=== PATIENT | female | born 1935 | race Caucasian/White ===

== ENCOUNTER → 2016-12-04 | Outpatient (CLI) | payer OTHER, MEDICARE ==
[~2016-12-04] MED LIST: ACET325T96 PO; AMOX1TAB43 PO; AXIT1TAB PO; CEFD1CAP14 PO; CEFU1TAB33 PO; CLTP PO; CYAN500T13 PO; DENOINJ SQ; DRGTP50 TD; DRGTP75 TD; ERGO1CAP41 PO; FNTTP50 TD; FURO-85 PO; HYDR-3983 PO; INSU3INJ3 SQ; KFL250 PO; LACT10CA3 PO; LEVO100T PO; LEVO200T6 PO; LISI-461 PO; LVMIPEN SQ; MRLP17X PO; NIVO4INJ IV; NYSS5 PO; ONDA8TAB6 PO; ONDA8TAB7 PO; OPTIRAY 320 IV PRN; PANT40TA PO; POLY335019 PO; RCL25 PO; SENN-61 PO; VANC1CAP19 PO; VNCS125 PO; [UNRECOGNIZED DRUG - OTHER] IV.
--- NOTE | 2016-12-04 12:38 | DIAGNOSTIC IMAGING REPORT ---
LEFT SHOULDER CT CT DOSE: 942.48 mGy.cm HISTORY: Fall with left shoulder pain. TECHNIQUE: Multiaxial CT images of the left shoulder were performed and reformatted in the sagittal and coronal plane without the use of contrast. COMPARISON: Left humerus 06/24/2016. FINDINGS: There is again noted a lytic lesion within the left humeral neck. This results in a pathologic fracture which demonstrates progressive displacement compared to the prior study. No dislocation within the left shoulder. The humeral neck fracture demonstrates up to 6 mm of medial displacement. The lytic/destructive left second rib lesion is again noted. Left upper lobe bronchiectatic/fibrotic change is again noted. IMPRESSION: 1. Redemonstration of a pathologic fracture within the neck of the left humerus which demonstrates progressive displacement. 2. Destructive left second rib lesion is again noted. Electronically signed by: Donovan Pan M.D. 12/04/2016 12:37 PM Dictated Date/Time: 12/04/2016 12:31 PM
--- NOTE | 2016-12-04 12:51 | DIAGNOSTIC IMAGING REPORT ---
CT SCAN OF THE CHEST WITH IV CONTRAST CLINICAL HISTORY: Metastatic renal cell carcinoma. COMPARISON STUDY: Chest CT scans dated 06/18/2016 and 02/15/2014. TECHNIQUE: Following the IV administration of 65 cc of Optiray 320, CT scan of the thorax was performed from the thoracic inlet to the upper abdomen. Images are reviewed in the axial, sagittal, and coronal planes. IV contrast was administered without complication. The examination is degraded by streak artifact from the left arm which could not be elevated above the chest. FINDINGS: Thyroid: Imaged portions of the thyroid gland are normal in size and attenuation. Thoracic aorta: There is atherosclerotic calcification of the thoracic aorta, which is normal in caliber and demonstrates standard 3-vessel arch anatomy. No dissection is seen. Pulmonary vasculature: The pulmonary trunk is mildly dilated suggesting pulmonary artery hypertension. This measures up to 3.8 cm in diameter. There are no filling defects identified in the central pulmonary vessels to indicate pulmonary embolus. Note that this examination was not protocoled for evaluation of the pulmonary arteries. Heart: The heart is normal in size and there is a small pericardial effusion. The coronary arteries are calcified. Lungs and pleural spaces: No airspace consolidation or pleural effusion is identified. A metastatic lesion at the left lung base is similar appearance to 06/18/2016 examination and measures up to 1.6 cm (producing measured up to 1.5 cm). No additional pulmonary lesion is seen. Fibrotic changes noted at the left apex adjacent to a rib metastasis. Mediastinum: There is no mediastinal lymphadenopathy. Zuleima: Clear. Axillae: Right axillary lymphadenopathy is noted. The largest node is seen on image #106 and measures 2.2 x 1.4 cm. There is no left axillary lymphadenopathy. Upper abdomen: Extensive/multifocal hypervascular hepatic metastatic disease is identified. The lesions are unchanged to minimally increased in size from 06/18/2016. A biliary stent is partially imaged. Pneumobilia suggests patency of the stent. The left kidney appears surgically absent. A metastatic soft tissue deposit below the left hemidiaphragm is seen at the expected location of the left adrenal gland. This appears modestly increased in size from 06/18/2016. A 2.0 cm low-attenuation right adrenal nodule is unchanged from 06/18/2016 but is new from 2013. Calcified gallstones are partially imaged. Skeletal structures: The skeletal structures are osteopenic. Degenerative change and hyperkyphosis is noted in the thoracic spine. There is a large destructive bone lesion involving the left second rib with adjacent pleural thickening. There is a large lesion in the left humeral neck with associated pathologic fracture. IMPRESSION: 1. A pulmonary metastasis at the left lung base has not significantly changed from 06/18/2016. 2. No new/additional pulmonary parenchymal lesions are seen. 3. There is multifocal hepatic metastatic disease as well as a metastatic implant in the expected location of the left adrenal gland. These are unchanged to slightly increased in size from 06/18/2016. See report of abdominal CT performed concurrently for detailed intra-abdominal findings. 4. There are large osseous metastatic lesions involving the left second rib and the left humeral neck. There is pathologic fracture of the left humeral neck. 5. Mild right axillary lymphadenopathy is noted. 6. No airspace consolidation or pleural effusion is seen. 7. Additional changes as above. Electronically signed by: Shadi Echols M.D. 12/04/2016 12:50 PM Dictated Date/Time: 12/04/2016 12:31 PM
--- NOTE | 2016-12-04 13:10 | DIAGNOSTIC IMAGING REPORT ---
CT ABD/PELVIS IV AND ORAL CONT CLINICAL HISTORY: Renal cell carcinoma COMPARISON STUDY: 06/18/2016 TECHNIQUE: Following the IV administration of 65 mL of Optiray-320, CT scan of the abdomen and pelvis was performed from the lung bases to the proximal femurs. Images are reviewed in the axial, sagittal, and coronal planes. IV contrast was administered without complication. CT DOSE: FINDINGS: Lower chest: There are coronary artery calcifications. There are dependent atelectatic changes. There is a 15 mm left lower lobe pulmonary nodule. This appears slightly larger on the preceding study. Liver: There are multiple hepatic masses, slightly larger than when compared the preceding study. An index mass middle hepatic vein centrally measures 25 mm. This previously measured 21 mm. There is pneumobilia. There is an indwelling no urinary enteric stent. Gallbladder: Cholelithiasis Spleen: Normal in size and attenuation. Pancreas: There is an enlarging 2 cm pancreatic tail mass, possibly metastatic. There is mild pancreatic ductal dilatation involving the mid body. Additional pancreatic body masses are suspected, possibly metastatic. Adrenal glands: Is a 2 cm right adrenal gland gland mass. Kidneys: The left kidney is surgically absent. No right renal masses are visualized. Bowel: There are no transition zones to indicate bowel obstruction. Peritoneum: There is no intraperitoneal free air or abdominal ascites. Vasculature: There is no evidence of abdominal aortic aneurysm. There is an indwelling IVC filter. Adenopathy: None. Pelvic viscera: The bladder, and pelvic viscera are unremarkable. Skeletal structures: There is a persistent left-sided chest wall mass resulting in secondary rib destruction. There is a large destructive mass involving the right sacrum and iliac bone with secondary pathologic fractures. This mass measures approximately 8 cm. Additional bony metastases are suspected. IMPRESSION: 1. Progressive hepatic metastasis 2. Enlarging pancreatic masses 3. 2 cm right adrenal mass. 4. Stable left-sided chest wall mass 5. Large destructive mass involving the right sacrum and iliac bone with secondary pathologic fracture similar to the prior study. 6. Cholelithiasis Electronically signed by: Tunde Franz M.D. 12/04/2016 1:09 PM Dictated Date/Time: 12/04/2016 12:53 PM
== END | disposition home or self-care (01) ==
LOC: C.CTS 11:30
PROVIDERS: ATTEND Orthopaedic Surgery Sports Medicine
DX: M84.522 Pathological fracture in neoplastic disease, left humerus (principal); X58.XXXD Exposure to other specified factors, subsequent encounter; C64.9 Malignant neoplasm of unspecified kidney, except renal pelvis; C79.51 Secondary malignant neoplasm of bone; C78.7 Secondary malignant neoplasm of liver and intrahepatic bile duct; K86.9 Disease of pancreas, unspecified; E27.9 Disorder of adrenal gland, unspecified; R22.2 Localized swelling, mass and lump, trunk; K80.20 Calculus of gallbladder without cholecystitis without obstruction; C78.02 Secondary malignant neoplasm of left lung

== ENCOUNTER 2017-02-07 21:40 | Inpatient (IN) | payer OTHER, MEDICARE ==
[~2017-02-07] VITALS: Ht 152.4 cm; Wt 67.0 kg
[~2017-02-07 21:40] MED LIST changes: -ACET325T96 PO; -AMOX1TAB43 PO; -CEFD1CAP14 PO; -CEFU1TAB33 PO; -DRGTP75 TD; -ERGO1CAP41 PO; -FNTTP50 TD; -INSU3INJ3 SQ; -KFL250 PO; -LACT10CA3 PO; -LEVO200T6 PO; -LISI-461 PO; -LVMIPEN SQ; -MRLP17X PO; -NIVO4INJ IV; -NYSS5 PO; -ONDA8TAB6 PO; -OPTIRAY 320 IV PRN; -POLY335019 PO; -RCL25 PO; -VANC1CAP19 PO; -VNCS125 PO; -[UNRECOGNIZED DRUG - OTHER] IV.
[2017-02-07] MEDS ORDERED: ONDANSETRON INJ 2 MG/ML 2 ML VIAL IV STA (21:51)
[2017-02-07] MEDS ORDERED: ACETAMINOPHEN 500 MG TAB PO STA (21:51)
[2017-02-07] MEDS ORDERED: SODIUM CHLORIDE 0.9% 1000ML 1,000 ML IV STA ×2 (21:51→22:01)
[2017-02-07] MEDS ORDERED: MoRPHine SULFATE 4 MG/ML 1 ML CARP\\VIAL IV STA (21:51)
[2017-02-07] MEDS ORDERED: SODIUM CHLORIDE 0.9% 500ML 500 ML IV STA (21:51)
[2017-02-07] MEDS ORDERED: LISI-461 PO (21:51)
[2017-02-07] MEDS ORDERED: PIPERACILLIN/TAZOBACTAM 4.5 GM/100ML D5W IV STA (22:10)
[2017-02-07] MEDS ORDERED: OPTIRAY 320 IV PRN (22:15)
--- NOTE | 2017-02-07 22:18 | EMERGENCY ROOM VISIT NOTE ---
ED Visit Note First contact with patient: 21:45 Staff note: I have reviewed the Patients chart and have discussed this case with my PA. I generally agree with the ED note and findings.
[2017-02-07 22:30] LABS: BASO % 0.2 %; BASO ABS # 0.02 K/uL (0-0.2); COMPLETE YES; EOS % 0.2 %; HEMATOCRIT 34.8 % (37-47); IG% 0.3 %; LYMPH % 3.5 %; LYMPH ABS # 0.44 K/uL (1.2-3.4); MEAN CELL VOLUME 93.3 fL (80-100); MEAN PLATELET VOLUME 10.1 fL (7.4-10.4); MONO % 3.3 %; NEUT % 92.5 %; PLATELET COUNT 305 K/uL (130-400); RED BLOOD COUNT 3.73 M/uL (4.2-5.4); WHITE BLOOD COUNT 12.74 K/uL (4.8-10.8)
[2017-02-07 22:39] LABS: PROTHROMBIN TIME (PATIENT) 11.2 SECONDS (9.0-12.0)
[2017-02-07 22:45] LABS: ISTAT CREATININE 1.5 mg/dl (0.6-1.3); ISTAT HEMOGLOBIN 12.2 g/dl (12.0-16.0); ISTAT IONIZED CALCIUM 1.05 mmol/l (1.12-1.32)
[2017-02-07 22:46] LABS: ALT/SGPT 38 U/L (12-78); BLOOD UREA NITROGEN 26 mg/dl (7-18); BUN/CREATININE RATIO 16.5 (10-20); CARBON DIOXIDE 25 mmol/L (21-32); CHLORIDE 101 mmol/L (98-107); GLUCOSE 246 mg/dl (70-99); MAGNESIUM 1.9 mg/dl (1.8-2.4); POTASSIUM 4.9 mmol/L (3.5-5.1); SODIUM 135 mmol/L (136-145)
[2017-02-07 22:48] LABS: CALCIUM 8.4 mg/dl (8.5-10.1)
[2017-02-07 22:50] LABS: ALB/GLOB RATIO 0.6 (0.9-2); ALKALINE PHOSPHATASE 256 U/L (45-117); AST/SGOT 28 U/L (15-37)
[2017-02-07] MEDS ORDERED: [UNRECOGNIZED DRUG - OTHER] IV. (23:10)
[2017-02-07] MEDS ORDERED: HYDR-3983 PO (23:10)
[2017-02-07] MEDS ORDERED: INSU3INJ3 SQ (23:10)
[2017-02-07] MEDS ORDERED: LVMIPEN SQ (23:10)
--- NOTE | 2017-02-07 23:17 | DIAGNOSTIC IMAGING REPORT ---
CT OF THE ABDOMEN AND PELVIS WITH CONTRAST CLINICAL HISTORY: Abdominal pain and fever. Metastatic renal cell carcinoma. COMPARISON STUDY: CT of the abdomen and pelvis December 04, 2016. TECHNIQUE: Following IV administration of 70 mL of Optiray-320, axial images of the abdomen and pelvis were obtained from the lung bases to the proximal femurs. Images were reviewed in the axial, sagittal, and coronal planes. IV contrast was administered without complication. CT DOSE: 448.10 mGy.cm FINDINGS: A 2 cm left lower lobe lesion has increased in size since CT of December 04, 2016 when it measured 1.5 cm. There is no pneumatosis, free air or portal venous gas. A common bile duct stent is in place. Pneumobilia is again noted. Moderate biliary ductal dilatation has slightly increased since exam of December 04, 2016. There are gallstones within the gallbladder. Innumerable liver metastases are similar to prior exam. An index lateral segment lesion measures 5 cm. An IVC filter is in place. There is no evidence for a bowel obstruction. There is no pneumatosis, free air or portal venous gas. Multiple pancreatic lesions are similar to prior exam. The left kidney is surgically absent. The right kidney is unremarkable. A expansile destructive lesion involving the right iliac bone and right sacrum is unchanged with associated pathologic fracture. Expansile mass involving the left lower anterior chest wall is again noted. This is similar to prior exam. There may be associated pathologic fracture. IMPRESSION: 1. Slight increase in size of a 2 cm left lower lobe metastasis. 2. No change in innumerable liver metastases and pancreatic masses since CT of December 04, 2016. 3. Common bile duct stent in place with pneumobilia. Mild increase in biliary ductal dilatation since exam of December 04, 2016. 4. Cholelithiasis. 5. No bowel obstruction. 6. No significant change in multiple skeletal metastases with associated pathologic fractures, as described above. Electronically signed by: Filiberto Powell M.D. 02/07/2017 11:15 PM Dictated Date/Time: 02/07/2017 10:58 PM
[2017-02-07 23:45] LABS: URINE APPEARANCE CLEAR (CLEAR); URINE BILIRUBIN NEG (NEG); URINE COLOR YELLOW; URINE EPITHELIAL CELL AUTO >30 /lpf (0-5); URINE NITRITE POS (NEG); URINE SPECIFIC GRAVITY 1.023 (1.000-1.030); UROBILINOGEN NEG (NEG); ZZURINE CULT IF INDIC CATH YES
[2017-02-07 23:51] LABS: MANUAL MICROSCOPIC REQUIRED? NO; REVIEW REQ? YES
--- NOTE | 2017-02-08 00:22 | EMERGENCY ROOM VISIT NOTE ---
History First contact with patient: 21:45 Chief Complaint: FEVER Stated Complaint: FEVER,CHILLS,CONSTIPATION,ABD PAIN HX METASTIC CA History of Present Illness The patient is a 81 year old female who presents to the Emergency Room with complaints of fever, chills, lower abdominal pain for the past day. Tmax 102.5. No recent Tylenol. Patient has metastatic carcinoma and follows at Dr. Mars. She got chemotherapy 2 weeks ago. No recent radiation. Patient has been constipated. No known history of bowel obstruction. Patient denies chest pain, dyspnea, cough, congestion, sore throat, back pain, urinary symptoms. Decreased by mouth intake. Patient has a biliary stent in. Review of Systems See HPI for pertinent positives & negatives. A total of 10 systems reviewed and were otherwise negative. Past Medical/Surgical History Medical Problems: (1) Diabetes (2) DVT (deep venous thrombosis) (3) Hypertension (4) Metastatic renal cell carcinoma to bone Family History Patient reports no known family medical history. Social History Smoking Status: Never Smoker Alcohol Use: none Drug Use: none Marital Status: Housing Status: lives with family Occupation Status: retired Current/Historical Medications Scheduled Calcium/Vitamin D (Caltrate 600 Plus *), 1 TAB PO DAILY Cyanocobalamin (Vitamin B12 500MCG), 1,000 MCG PO DAILY Denosumab (Xgeva), 1 DOSE SC MONTHLY Fentanyl (Duragesic *), 50 MCG TD [id number] Furosemide (Lasix), 20 MG PO DAILY Insulin Detemir (Levemir Flextouch), 6 UNITS SQ QAM Insulin Detemir (Levemir Flextouch), 3 UNITS SQ QPM Levothyroxine Sodium (Synthroid), 100 MCG PO DAILY Lisinopril (Lisinopril), 20 MG PO DAILY Pantoprazole (Protonix), 40 MG PO DAILY [Opdiva], 1 DOSE IV. [id number] Scheduled PRN Hydrocodone/Acetaminophen 7.5MG/325MG (Winifrede 7.5MG/325MG), 1-2 TAB PO Q4 PRN for Pain Ondansetron Tab (Zofran), 8 MG PO Q8 PRN for Nausea Senna (Senokot), 1 TAB PO DAILY PRN for Constipation Allergies Coded Allergies: Adhesives (Verified Allergy, Mild, LOCAL SKIN IRRITATION, BLISTERS, ) Physical Exam Vital Signs Date Time Temp Pulse Resp B/P Pulse Ox O2 Delivery O2 Flow Rate FiO2 02/07/17 22:55 37.1 02/07/17 22:49 98 18 129/53 91 Room Air 02/07/17 22:19 103 02/07/17 21:42 39.4 110 18 138/61 99 Room Air Physical Exam VITALS: Vitals are noted on the nurse's note and reviewed by myself. Vital signs febrile GENERAL: Pleasant ill-appearing elderly female SKIN: The skin was without rashes, erythema, or bruising. There is no tenting of the skin. Capillary reflex less than 2 seconds. HEAD: Normocephalic atraumatic. EARS: External auditory canals clear, tympanic membranes pearly villalobos without erythema or effusion bilaterally. EYES: Pupils equal round and reactive to light and accommodation. Conjunctivae without injection, sclerae without icterus. Extraocular movements intact. NOSE: Patent, turbinates without inflammation or discharge. No sinus tenderness. MOUTH: Mucous membranes are dry. Pharynx without erythema or exudate. Uvula midline. Airway patent. Tongue does not deviate. NECK: Supple without nuchal rigidity. No lymphadenopathy. No thyromegaly. Cervical spine is nontender. No JVD. HEART: Regular rate and rhythm LUNGS: Clear to auscultation bilaterally without wheezes, rales or rhonchi. No dullness to percussion. No retractions or accessory muscle use. ABDOMEN: Positive bowel sounds x 4. Normal tympanic percussion. Soft, tender to palpation right upper quadrant and lower abdomen, without masses or organomegaly. No guarding or rebound tenderness. No CVA tenderness MUSCULOSKELETAL: No muscle atrophy, erythema, noted. NEURO: Patient was alert and oriented to person place and time. Normal sensation to light and sharp touch. No focal neurological deficits. Medical Decision & Procedures Laboratory Results 02/07/17 22:04 Red Blood Count 3.73, Mean Corpuscular Volume 93.3, Mean Corpuscular Hemoglobin 29.0, Mean Corpuscular Hemoglobin Concent 31.0, Mean Platelet Volume 10.1, Neutrophils (%) (Auto) 92.5, Lymphocytes (%) (Auto) 3.5, Monocytes (%) (Auto) 3.3, Eosinophils (%) (Auto) 0.2, Basophils (%) (Auto) 0.2, Neutrophils # (Auto) 11.80, Lymphocytes # (Auto) 0.44, Monocytes # (Auto) 0.42, Eosinophils # (Auto) 0.02, Basophils # (Auto) 0.02 02/07/17 22:04 Test 02/07/17 22:04 02/07/17 22:20 02/07/17 22:21 02/07/17 22:32 White Blood Count 12.74 K/uL (4.8-10.8) Red Blood Count 3.73 M/uL (4.2-5.4) Hemoglobin 10.8 g/dL (12.0-16.0) Hematocrit 34.8 % (37-47) Mean Corpuscular Volume 93.3 fL (80-100) Mean Corpuscular Hemoglobin 29.0 pg (25-34) Mean Corpuscular Hemoglobin Concent 31.0 g/dl (32-36) Platelet Count 305 K/uL (130-400) Mean Platelet Volume 10.1 fL (7.4-10.4) Neutrophils (%) (Auto) 92.5 % Lymphocytes (%) (Auto) 3.5 % Monocytes (%) (Auto) 3.3 % Eosinophils (%) (Auto) 0.2 % Basophils (%) (Auto) 0.2 % Neutrophils # (Auto) 11.80 K/uL (1.4-6.5) Lymphocytes # (Auto) 0.44 K/uL (1.2-3.4) Monocytes # (Auto) 0.42 K/uL (0.11-0.59) Eosinophils # (Auto) 0.02 K/uL (0-0.5) Basophils # (Auto) 0.02 K/uL (0-0.2) RDW Standard Deviation 50.9 fL (36.4-46.3) RDW Coefficient of Variation 14.7 % (11.5-14.5) Immature Granulocyte % (Auto) 0.3 % Immature Granulocyte # (Auto) 0.04 K/uL (0.00-0.02) Prothrombin Time 11.2 SECONDS (9.0-12.0) Prothromb Time International Ratio 1.0 (0.9-1.1) Activated Partial Thromboplast Time 27.1 SECONDS (21.0-31.0) Partial Thromboplastin Ratio 1.0 Est Creatinine Clear Calc Drug Dose 23.2 ml/min Estimated GFR () 34.7 Estimated GFR (Non- 29.9 BUN/Creatinine Ratio 16.5 (10-20) Calcium Level 8.4 mg/dl (8.5-10.1) Magnesium Level 1.9 mg/dl (1.8-2.4) Total Bilirubin 0.7 mg/dl (0.2-1) Aspartate Amino Transf (AST/SGOT) 28 U/L (15-37) Alanine Aminotransferase (ALT/SGPT) 38 U/L (12-78) Alkaline Phosphatase 256 U/L (45-117) Total Creatine Kinase 29 U/L (26-192) Creatine Kinase MB < 0.5 ng/ml (0.5-3.6) Creatine Kinase MB Ratio (0-3.0) Total Protein 7.4 gm/dl (6.4-8.2) Albumin 2.9 gm/dl (3.4-5.0) Globulin 4.5 gm/dl (2.5-4.0) Albumin/Globulin Ratio 0.6 (0.9-2) Procalcitonin 2.01 ng/ml (0-0.5) Bedside Troponin I 0.030 ng/ml (0-0.045) Bedside Hemoglobin 12.2 g/dl (12.0-16.0) Bedside Hematocrit 36 % (37-47) Bedside Sodium 135 mEq/L (135-144) Bedside Potassium 5.0 mEq/L (3.3-5.0) Bedside Chloride 98 mEq/L (101-112) Bedside Total CO2 24 mEq/l (24-31) Anion Gap 18.0 mmol/L (16-25) Bedside Blood Urea Nitrogen 25 mg/dl (7-18) Bedside Creatinine 1.5 mg/dl (0.6-1.3) Bedside Glucose (other) 256 mg/dl (70-99) Bedside Ionized Calcium (Norma) 1.05 mmol/l (1.12-1.32) Bedside Lactic Acid Venous 1.03 mmol/L (0.90-1.70) Test 02/07/17 22:33 02/07/17 23:20 Influenza Type A Antigen Neg for Influ A (NEG) Influenza Type B Antigen Neg for Influ B (NEG) Urine Color YELLOW Urine Appearance CLEAR (CLEAR) Urine pH 6.0 (4.5-7.5) Urine Specific Hoffman 1.023 (1.000-1.030) Urine Protein 1+ (NEG) Urine Glucose (UA) NEG (NEG) Urine Ketones 1+ (NEG) Urine Occult Blood 2+ (NEG) Urine Nitrite POS (NEG) Urine Bilirubin NEG (NEG) Urine Urobilinogen NEG (NEG) Urine Leukocyte Esterase SMALL (NEG) Urine WBC (Auto) 5-10 /hpf (0-5) Urine RBC (Auto) 0-4 /hpf (0-4) Urine Hyaline Casts (Auto) 0 /lpf (0-5) Urine Epithelial Cells (Auto) >30 /lpf (0-5) Urine Bacteria (Auto) 3+ (NEG) Urine Renal Epithelial Cells /lpf (0-5) Urine Pathogenic Casts /lpf (0) Medications Administered Medications (Trade) Dose Ordered Sig/Suleiman Route Start Time Stop Time Status Last Admin Dose Admin Sodium Chloride (Nss 1000ml) 1,000 ml @ 125 mls/hr Q8H STAT IV 02/07/17 21:51 02/08/17 05:50 02/07/17 23:26 125 MLS/HR Acetaminophen (Tylenol Tab) 1,000 mg NOW STAT PO 02/07/17 21:51 02/07/17 21:56 DC 02/07/17 22:24 1,000 MG Morphine Sulfate (MoRPHine SULFATE INJ) 4 mg NOW STAT IV 02/07/17 21:51 02/07/17 21:56 DC 02/07/17 22:25 4 MG Ondansetron HCl 4 mg 4 mg NOW STAT IV 02/07/17 21:51 02/07/17 21:56 DC 02/07/17 22:24 4 MG Sodium Chloride (Nss 1000ml) 1,000 ml @ 999 mls/hr Q1H1M STAT IV 02/07/17 22:01 02/07/17 23:01 DC 02/07/17 22:24 999 MLS/HR Piperacillin Sod/ Tazobactam Sod (Zosyn Iv) 4.5 gm NOW STAT IV 02/07/17 22:10 02/07/17 22:11 DC 02/07/17 22:23 4.5 GM ED Course Prior records/ancillary studies reviewed. Triage Nursing notes reviewed. Additional history obtained from family The patient's history was concerning for fever and lower abdominal pain Differential diagnosis: Etiologies such as sepsis, UTI, pneumonia, metabolic, electrolyte abnormalities , cardiac sources, intracerebral event, toxicologic, neurologic, as well as others were entertained. Physical examination: As above. Pertinent findings were fever and lower abdominal pain. Vital signs reviewed and revealed febrile. ER treatment provided: IV fluid resuscitation with Normal saline solution, 1000 mL bolus. IV fluid hydration with Normal saline solution at 125 mL/hr. Blood and urine cultures Antibiotics: Zosyn On reassessment the patient vital signs improved. Diagnostics interpretation by me: ECG: Normal sinus, normal intervals, no acute ST-T wave changes, left axis deviation, rate of 101. Poor baseline. Artifact present. Impression sinus tachycardia with left axis deviation interpreted by myself The labs revealed leukocytosis on CBC. Chemistry panel revealed stable creatinine per chart review. LFTs revealed. Cardiac enzymes were negative. Pro-calcitonin 2 Blood and urine cultures are pending. Imaging studies: Chest xray revealed no pneumothorax, stable currently medically, known left humeral lesion with fracture my interpretation. CT OF THE ABDOMEN AND PELVIS WITH CONTRAST CLINICAL HISTORY: Abdominal pain and fever. Metastatic renal cell carcinoma. COMPARISON STUDY: CT of the abdomen and pelvis December 04, 2016. TECHNIQUE: Following IV administration of 70 mL of Optiray-320, axial images of the abdomen and pelvis were obtained from the lung bases to the proximal femurs. Images were reviewed in the axial, sagittal, and coronal planes. IV contrast was administered without complication. CT DOSE: 448.10 mGy.cm FINDINGS: A 2 cm left lower lobe lesion has increased in size since CT of December 04, 2016 when it measured 1.5 cm. There is no pneumatosis, free air or portal venous gas. A common bile duct stent is in place. Pneumobilia is again noted. Moderate biliary ductal dilatation has slightly increased since exam of December 04, 2016. There are gallstones within the gallbladder. Innumerable liver metastases are similar to prior exam. An index lateral segment lesion measures 5 cm. An IVC filter is in place. There is no evidence for a bowel obstruction. There is no pneumatosis, free air or portal venous gas. Multiple pancreatic lesions are similar to prior exam. The left kidney is surgically absent. The right kidney is unremarkable. A expansile destructive lesion involving the right iliac bone and right sacrum is unchanged with associated pathologic fracture. Expansile mass involving the left lower anterior chest wall is again noted. This is similar to prior exam. There may be associated pathologic fracture. IMPRESSION: 1. Slight increase in size of a 2 cm left lower lobe metastasis. 2. No change in innumerable liver metastases and pancreatic masses since CT of December 04, 2016. 3. Common bile duct stent in place with pneumobilia. Mild increase in biliary ductal dilatation since exam of December 04, 2016. 4. Cholelithiasis. 5. No bowel obstruction. 6. No significant change in multiple skeletal metastases with associated pathologic fractures, as described above. Electronically signed by: Filiberto Powell M.D. 02/07/2017 11:15 PM Dictated Date/Time: 02/07/2017 10:58 PM Consultation: A consultation was placed with the [facility] hospitalist, Dr Bradford. The case was discussed and diagnostics were reviewed. The patient was evaluated in the ER for further treatment. Case reviewed with my attending Exam and history seem consistent with sepsis. Patient was reevaluated numerous times. Chart review was done to the [employer] system as patient had no recent blood work and this was reviewed. Patient was hydrated as above. She was started on broad-spectrum antibiotics. She felt much better to be medicated as above. She had an elevated procalcitonin. Family is agreeable to treatment plan of admission. Medical Decision As above Impression Primary Impression: Sepsis Additional Impression: UTI (urinary tract infection) Critical Care I have personally spent greater than 30 minutes of critical care time in the direct management of this patient. This includes bedside care, interpretation of diagnostic studies, and testing, discussion with consultants, patient, and family members, and other required patient management activities. This 30 minutes is in excess of all separately billable procedures. Departure Information Dispostion Being Evaluated By Hospitalist Condition [facility]IR Referrals Kamini Dunn M.D. (PCP) Patient Instructions My [facility] Problem Qualifiers Primary Impression: Sepsis Sepsis type: sepsis due to unspecified organism Qualified Codes: A41.9 - Sepsis, unspecified organism
[2017-02-08] MEDS ORDERED: VANCOMYCIN INJ 1,650 MG in SODIUM CHLORIDE 0.9% 500ML 500 ML IV ONE (00:45)
[2017-02-08] MEDS ORDERED: ALUMINUM/MAGNESIUM/SIMETH (MAALOX MAX) 30 ML UDC PO PRN (00:45)
[2017-02-08 00:50] LABS: INFLUENZA A PCR Neg for Influ A (NEG); INFLUENZA B PCR Neg for Influ B (NEG)
[2017-02-08] MEDS ORDERED: FURO-85 PO (00:54)
[2017-02-08 01:30] VITALS: BP 117/59; PULSE 87; TEMP 36.6; O2SAT 92; BMI 26.6
[2017-02-08] MEDS ORDERED: POLYETHYLENE (MIRALAX) 17 GM PACK PO PRN (02:30)
[2017-02-08] MEDS ORDERED: VANCOMYCIN CONSULT ACTIVE PRN (02:30)
[2017-02-08] MEDS ORDERED: PIPERACILL/TAZOBAC CONSULT ACTIVE PRN (02:30)
[2017-02-08] MEDS: SODIUM CHLORIDE 0.9% 1000ML 1,000 ML IV SCH ×2 (02:33→15:39)
[2017-02-08] MEDS ORDERED: DEXTROSE 50% 50 ML SYR IV PRN (03:00)
[2017-02-08] MEDS ORDERED: GLUCOSE 10 TABS/TUBE PO PRN (03:00)
[2017-02-08] MEDS: CHECK FENTANYL PATCH PLACEMENT SCH ×4 (03:00→23:36)
[2017-02-08] MEDS ORDERED: GLUCOSE 40% GEL 15 GM TUBE PO PRN (03:00)
[2017-02-08] MEDS ORDERED: GLUCAGON FOR INJ 1 MG VIAL SQ PRN (03:00)
[2017-02-08] MEDS: PIPERACILL/TAZOBAC IV 3.375 GM in DEXTROSE 5% 100ML 100 ML IV SCH ×2 (04:12→12:14)
--- NOTE | 2017-02-08 04:17 | HISTORY & PHYSICAL EXAMINATION ---
DATE OF ADMISSION: 02/08/2017 CHIEF COMPLAINT: Abdominal pain and fever. HISTORY OF PRESENT ILLNESS: This 81-year-old female with past medical history significant for metastatic renal cancer with liver metastasis and bone metastasis, hypothyroidism, hypertension and GERD, presents with right-sided abdominal pain, severe in nature, and she says the pain is more when she stands up and also was running temperature at home. So she was brought in here, she has a temp spike of 39.4 in the ER, pain is better controlled with pain medication now. Denies any headaches, no blurred vision, no dizziness, no cough, no nausea, no vomiting, no diarrhea, no hematuria, no burning micturition. Appetite is not that great. Lives with her family. Ambulation not that great. Currently resting comfortably and hemodynamically stable. PAST MEDICAL HISTORY: As mentioned above. Also history of DVT with IVC filter placement and also diabetes. PAST SURGICAL HISTORY: Left-sided nephrectomy in 1997, IVC filter in 2011, and 2 C-sections. MEDICATIONS: The patient is on fentanyl patch 50 mcg q. 72 hours, [place] 7.5/325 mg 1-2 tablets every 4 hours p.r.n., Lasix 20 mg p.o. daily p.r.n., levothyroxine 100 mcg p.o. daily, lisinopril 20 mg p.o. daily, Levemir 6 units in a.m. and 3 units in p.m., Zofran 8 mg p.o. q. 8 hours p.r.n., Senokot 1 tablet p.o. daily p.r.n., Opdivo every 2 weeks, Xgeva subcu monthly, calcium plus vitamin D 1 tablet daily, vitamin B12 1000 mcg p.o. daily, and Protonix 40 mg p.o. daily. FAMILY HISTORY: Noncontributory at this time. SOCIAL HISTORY: No smoking history, no drug use, no drinking history. Currently lives at home with her family. REVIEW OF SYMPTOMS: As per HPI. Rest of review of systems negative. PHYSICAL EXAMINATION: GENERAL: The patient is old and frail, not in distress. VITAL SIGNS: T-max 39.4, pulse 83, respiratory rate 14, blood pressure 129/62, oxygen 97% on room air. HEENT: No pallor, no icterus. Pupils equal, round, and reactive to light. NECK: No JVD, no neck masses, no carotid bruits. CARDIOVASCULAR: S1, S2 heard, regular rate and rhythm, no murmur, no gallop. RESPIRATORY: Normal AP diameter. No accessory muscle use. No wheezing, no crackles. ABDOMEN: Soft, bowel sounds present. Mild right lower quadrant tenderness. No guarding, no rigidity, no distention. CENTRAL NERVOUS SYSTEM: Cranial nerves II-XII grossly intact. Nonfocal. EXTREMITIES: Lower extremity edema present. No gross erythema seen. LABORATORIES: WBC 12.7, hemoglobin 10.8, hematocrit 34.8, platelets 305. Sodium 135, potassium 4.9, chloride 101, CO2 of 25, BUN 26, creatinine 1.6, serum glucose 246. [id number] lactic acid 1. Magnesium 1.9. Total bilirubin 0.7. AST 28, ALT 38, alkaline phosphatase 256, procalcitonin 2. PT 11.2, INR 1, PTT 27.1. Urinalysis positive for leukocyte esterase. Influenza negative. CT of the abdomen and pelvis shows slight increase in the 2 cm left lower lobe metastasis. No change in liver metastasis and pancreatic masses since CT of 11/2016. Common bile duct stent placed with pneumobilia, mild increase in biliary ductal dilatation since the exam of 12/04/2016. Cholecystitis, no bowel obstruction, no change in multiple skeletal metastasis with associated pathological fractures. Chest x-ray, no infiltrates seen. ASSESSMENT AND PLAN: This is an 81-year-old female who presents with abdominal pain with possible urinary tract infection. 1. Abdominal pain and fever, possibly urinary tract infection, empirically starting her on vancomycin and Zosyn. We will follow the cultures. Gentle fluids. Monitor on the medical floor. 2. History of hypertension, continue lisinopril, monitor the blood pressure. 3. History of diabetes. As per the family, the patient feels hypoglycemic episode when her sugars are around 100, she is used to be on the higher side. The patient is on Levemir 3 units at nighttime and 6 units at daytime, but we will place on 3 units b.i.d. Insulin sliding scale and monitor blood sugars. Follow hemoglobin A1c levels. 4. History of hypothyroidism, continue Synthroid. 5. History of chronic diastolic congestive heart failure with a grade 1 diastolic dysfunction, on Lasix as needed. We will monitor for any volume overload as patient on Gentle fluids. 6. Metastatic renal cancer with skeletal metastasis and liver metastasis and also pathological fractures, follows with Dr. Car, orthopedics. Pain controlled with fentanyl and [place] and she is supposed to get Opdivo chemo tomorrow on Saturday. We will consult Dr. Conner for further recommendations regarding chemo. 7. Gastroesophageal reflux disease, continue Protonix. 8. Deep vein thrombosis prophylaxis, SCDs and heparin subcu. 9. Disposition: Admit to medical floor. Expect to discharge home and follow up with the family doctor. Level 1 full code. MTDD
[2017-02-08] MEDS: HYDROCODONE/ACETAMINOPHEN 7.5/325MG TAB PO PRN ×3 (05:27→17:04)
[2017-02-08] MEDS: LEVOTHYROXINE 100 MCG TAB PO SCH (05:27)
--- NOTE | 2017-02-08 06:26 | DIAGNOSTIC IMAGING REPORT ---
CHEST ONE VIEW PORTABLE CLINICAL HISTORY: Sepsis dyspnea COMPARISON STUDY: 03/09/2016 FINDINGS: Patient is rotated to the left. There is a fracture of the left humeral neck. Appears to be a pathologic fracture through the humeral neck site. Lungs are grossly clear. There is slight accentuation the left parenchymal markings. There is platelike atelectasis right base. IMPRESSION: Pulmonary vascular congestion. Pathologic fracture left humeral neck. Electronically signed by: Gordon Marvin M.D. 02/08/2017 6:24 AM Dictated Date/Time: 02/08/2017 6:23 AM
[2017-02-08 06:57] LABS: CREATININE 1.6 mg/dl (0.60-1.20)
[2017-02-08 07:33] LABS: ESTIMATED AVERAGE GLUCOSE 186 mg/dl; HA1C FLAG Normal (Normal)
[2017-02-08 07:34] VITALS: BP 122/66; PULSE 93; TEMP 36.6; O2SAT 94
[2017-02-08] MEDS: CYANOCOBALAMIN 500 MCG TAB (VIT B-12) PO SCH ×2 (08:00→08:12)
[2017-02-08] MEDS ORDERED: LISINOPRIL 20 MG TAB PO SCH (08:00)
[2017-02-08] MEDS: PANTOprazole SOD 40 MG TAB PO SCH (08:13)
[2017-02-08] MEDS: CALCIUM 600MG + VIT D 400 IU TAB PO SCH (08:13)
[2017-02-08] MEDS: HEPARIN SOD 5000 UNIT/0.5 ML CARP SQ SCH ×2 (08:20→20:09)
[2017-02-08] MEDS: INSULIN ASPART 100 UNITS/ML 3 ML PEN SC SCH ×4 (08:27→20:12)
[2017-02-08] MEDS: INSULIN DETEMIR FLEXPEN/FLEX TOUCH 100 UNITS/ML 3ML SC SCH ×2 (08:28→20:13)
--- NOTE | 2017-02-08 08:48 | Pharmacy Progress Note ---
Pharmacy Antibiotic Consult Date of Service: February 08, 2017. Pharmacy Dosing Scope Pharmacy is consulted to initiate VANCOMYCIN + ZOSYN IV dosing therapy, order appropriate labs and adjust drug dose/frequency. Subjective The patient is a 81 year old female admitted on February 08, 2017 at 00:50. Objective Height (Feet): 5 Height (Inches): 0.00 Weight (Kilograms): 61.700 Lab Results (24hrs): Test 02/07/17 22:04 02/07/17 22:20 02/07/17 22:21 02/07/17 22:32 White Blood Count 12.74 K/uL (4.8-10.8) Red Blood Count 3.73 M/uL (4.2-5.4) Hemoglobin 10.8 g/dL (12.0-16.0) Hematocrit 34.8 % (37-47) Mean Corpuscular Volume 93.3 fL (80-100) Mean Corpuscular Hemoglobin 29.0 pg (25-34) Mean Corpuscular Hemoglobin Concent 31.0 g/dl (32-36) Platelet Count 305 K/uL (130-400) Mean Platelet Volume 10.1 fL (7.4-10.4) Neutrophils (%) (Auto) 92.5 % Lymphocytes (%) (Auto) 3.5 % Monocytes (%) (Auto) 3.3 % Eosinophils (%) (Auto) 0.2 % Basophils (%) (Auto) 0.2 % Neutrophils # (Auto) 11.80 K/uL (1.4-6.5) Lymphocytes # (Auto) 0.44 K/uL (1.2-3.4) Monocytes # (Auto) 0.42 K/uL (0.11-0.59) Eosinophils # (Auto) 0.02 K/uL (0-0.5) Basophils # (Auto) 0.02 K/uL (0-0.2) RDW Standard Deviation 50.9 fL (36.4-46.3) RDW Coefficient of Variation 14.7 % (11.5-14.5) Immature Granulocyte % (Auto) 0.3 % Immature Granulocyte # (Auto) 0.04 K/uL (0.00-0.02) Prothrombin Time 11.2 SECONDS (9.0-12.0) Prothromb Time International Ratio 1.0 (0.9-1.1) Activated Partial Thromboplast Time 27.1 SECONDS (21.0-31.0) Partial Thromboplastin Ratio 1.0 Sodium Level 135 mmol/L (136-145) Potassium Level 4.9 mmol/L (3.5-5.1) Chloride Level 101 mmol/L (98-107) Carbon Dioxide Level 25 mmol/L (21-32) Anion Gap 9.0 mmol/L (3-11) 18.0 mmol/L (16-25) Blood Urea Nitrogen 26 mg/dl (7-18) Creatinine 1.60 mg/dl (0.60-1.20) Est Creatinine Clear Calc Drug Dose 23.2 ml/min Estimated GFR () 34.7 Estimated GFR (Non- 29.9 BUN/Creatinine Ratio 16.5 (10-20) Random Glucose 246 mg/dl (70-99) Estimated Average Glucose 186 mg/dl Hemoglobin A1c 8.1 % (4.5-5.6) Calcium Level 8.4 mg/dl (8.5-10.1) Magnesium Level 1.9 mg/dl (1.8-2.4) Total Bilirubin 0.7 mg/dl (0.2-1) Aspartate Amino Transf (AST/SGOT) 28 U/L (15-37) Alanine Aminotransferase (ALT/SGPT) 38 U/L (12-78) Alkaline Phosphatase 256 U/L (45-117) Total Creatine Kinase 29 U/L (26-192) Creatine Kinase MB < 0.5 ng/ml (0.5-3.6) Creatine Kinase MB Ratio (0-3.0) Total Protein 7.4 gm/dl (6.4-8.2) Albumin 2.9 gm/dl (3.4-5.0) Globulin 4.5 gm/dl (2.5-4.0) Albumin/Globulin Ratio 0.6 (0.9-2) Procalcitonin 2.01 ng/ml (0-0.5) Bedside Troponin I 0.030 ng/ml (0-0.045) Bedside Hemoglobin 12.2 g/dl (12.0-16.0) Bedside Hematocrit 36 % (37-47) Bedside Sodium 135 mEq/L (135-144) Bedside Potassium 5.0 mEq/L (3.3-5.0) Bedside Chloride 98 mEq/L (101-112) Bedside Total CO2 24 mEq/l (24-31) Bedside Blood Urea Nitrogen 25 mg/dl (7-18) Bedside Creatinine 1.5 mg/dl (0.6-1.3) Bedside Glucose (other) 256 mg/dl (70-99) Bedside Ionized Calcium (Norma) 1.05 mmol/l (1.12-1.32) Bedside Lactic Acid Venous 1.03 mmol/L (0.90-1.70) Test 02/07/17 22:33 02/07/17 23:20 02/08/17 05:47 02/08/17 08:17 Influenza Type A (RT-PCR) Neg for Influ A (NEG) Influenza Type A Antigen Neg for Influ A (NEG) Influenza Type B Antigen Neg for Influ B (NEG) Influenza Type B (RT-PCR) Neg for Influ B (NEG) Urine Color YELLOW Urine Appearance CLEAR (CLEAR) Urine pH 6.0 (4.5-7.5) Urine Specific [place] 1.023 (1.000-1.030) Urine Protein 1+ (NEG) Urine Glucose (UA) NEG (NEG) Urine Ketones 1+ (NEG) Urine Occult Blood 2+ (NEG) Urine Nitrite POS (NEG) Urine Bilirubin NEG (NEG) Urine Urobilinogen NEG (NEG) Urine Leukocyte Esterase SMALL (NEG) Urine WBC (Auto) 5-10 /hpf (0-5) Urine RBC (Auto) 0-4 /hpf (0-4) Urine Hyaline Casts (Auto) 0 /lpf (0-5) Urine Epithelial Cells (Auto) >30 /lpf (0-5) Urine Bacteria (Auto) 3+ (NEG) Urine Renal Epithelial Cells /lpf (0-5) Urine Pathogenic Casts /lpf (0) Creatinine 1.60 mg/dl (0.60-1.20) Est Creatinine Clear Calc Drug Dose 22.6 ml/min Estimated GFR () 34.7 Estimated GFR (Non- 29.9 Bedside Glucose 231 mg/dl (70-90) Micro Results: Item Value Date Time Urine Culture Received 02/07/17 2320 Urine,Catheterized Pending Blood Culture Received 02/07/172213 Blood Pending Blood Culture Received 02/07/172203 Blood Pending Assessment & Plan 81yo female with possible sepsis secondary to UTI empirically being treated with Vanco + Zosyn. * Blood/urine cultures pending. May 2015 uti grew pansensitive e. coli - Current UA looks "dirty" and infectious. However, positive urine nitrate is indicative of G- infection. - Probably do not need anaerobic coverage of Zosyn and probably do not need enterococcal coverage of Vanco. - Recommend changing abx to either cefepime or Rocephin * Recommend de-escalating per c/s isamar as combo of vanco & zosyn can be nephrotoxic. * Pt already with renal impairment, Scr 1.6mg/dl today; appears baseline Scr is ~ 1.4mg/dl. Pt with pansensitive e coli UTI in May 2015. VANCOMYCIN: * Loading dose: Vancomycin 1,650mg (25mg/kg) IV X 1 loading dose then: * Check random level d/t renal impairment. Combination of Vanco + Zosyn can be nephrotoxic, therefore, will check levels often to help prevent toxicities. * Random level today @ 1430 * Will re-dose IV vancomycin when random level is in goal trough range * Estimating that patient may require ~ 1,000mg IV Q36hrs * Est PK: ke ~ 0.021 h-1 T1/2 ~ 33 hrs Vd ~ 0.65L/kg * Goal trough level estimate: between 15 - 20 mcg/mL for sepsis, may consider decreasing goal range if sepsis r/o and just treating urinary source ZOSYN: Piperacillin/Tazobactam Extended Infusion: * 3.375 grams IV bolus, 3.375 grams CI IV every 8 hours for est CrCL > 20mL/min. * 3.375 grams IV bolus, 3.375 grams CI IV every 12 hours for est CrCL 20mL/min or below Pharmacy will continue to follow and will adjust dose/frequency as necessary. Thank you
[2017-02-08 11:00] VITALS: BP 94/56; PULSE 81; TEMP 36.5; O2SAT 95
--- NOTE | 2017-02-08 13:08 | Progress Note ---
Medicine Progress Note Date & Time of Visit: February 08, 2017 at 13:08. Subjective seen with daughter Naz at bedside resting in bed still reports RLQ pain, worse with palpation denies nausea/vomiting, no BM since Sat, denies flatus no fever/chills denies chest pain, dyspnea, palpitations no other symptoms patient reevaluated at around 6pm as she was reporting 10/10 RLQ pain started after having dinner no nausea Objective Last 8 Hrs Date Time Temp Pulse Resp B/P Pulse Ox O2 Delivery O2 Flow Rate FiO2 02/08/17 11:00 36.5 81 16 94/56 95 Room Air 02/08/17 07:34 36.6 93 16 122/66 94 Room Air Physical Exam: General- oriented x 3, not in distress, speaks in sentences with no effort Head- atraumatic Eyes- PERRL, EOMI, anicteric ENT- oropharynx clear Neck- supple, no JVD, no adenopathyno bruits appreciated Lungs- clear breath sounds bilaterally Heart- regular rhythm; no murmur, no gallop, no rub appreciated Abdomen- normal bowel sounds, non distended, soft, (+) RLQ tenderness, no masses or hepatosplenomegaly Extremities- no pretibial edema, no calf tenderness; peripheral pulses intact Neuro- alert, oriented x 3; no gross focal deficits Skin- warm & dry Laboratory Results: Last 24 Hours Test 02/07/17 22:04 02/07/17 22:20 02/07/17 22:21 02/07/17 22:32 White Blood Count 12.74 K/uL Red Blood Count 3.73 M/uL Hemoglobin 10.8 g/dL Hematocrit 34.8 % Mean Corpuscular Volume 93.3 fL Mean Corpuscular Hemoglobin 29.0 pg Mean Corpuscular Hemoglobin Concent 31.0 g/dl Platelet Count 305 K/uL Mean Platelet Volume 10.1 fL Neutrophils (%) (Auto) 92.5 % Lymphocytes (%) (Auto) 3.5 % Monocytes (%) (Auto) 3.3 % Eosinophils (%) (Auto) 0.2 % Basophils (%) (Auto) 0.2 % Neutrophils # (Auto) 11.80 K/uL Lymphocytes # (Auto) 0.44 K/uL Monocytes # (Auto) 0.42 K/uL Eosinophils # (Auto) 0.02 K/uL Basophils # (Auto) 0.02 K/uL RDW Standard Deviation 50.9 fL RDW Coefficient of Variation 14.7 % Immature Granulocyte % (Auto) 0.3 % Immature Granulocyte # (Auto) 0.04 K/uL Prothrombin Time 11.2 SECONDS Prothromb Time International Ratio 1.0 Activated Partial Thromboplast Time 27.1 SECONDS Partial Thromboplastin Ratio 1.0 Sodium Level 135 mmol/L Potassium Level 4.9 mmol/L Chloride Level 101 mmol/L Carbon Dioxide Level 25 mmol/L Anion Gap 9.0 mmol/L 18.0 mmol/L Blood Urea Nitrogen 26 mg/dl Creatinine 1.60 mg/dl Est Creatinine Clear Calc Drug Dose 23.2 ml/min Estimated GFR () 34.7 Estimated GFR (Non- 29.9 BUN/Creatinine Ratio 16.5 Random Glucose 246 mg/dl Estimated Average Glucose 186 mg/dl Hemoglobin A1c 8.1 % Calcium Level 8.4 mg/dl Magnesium Level 1.9 mg/dl Total Bilirubin 0.7 mg/dl Aspartate Amino Transf (AST/SGOT) 28 U/L Alanine Aminotransferase (ALT/SGPT) 38 U/L Alkaline Phosphatase 256 U/L Total Creatine Kinase 29 U/L Creatine Kinase MB < 0.5 ng/ml Creatine Kinase MB Ratio Total Protein 7.4 gm/dl Albumin 2.9 gm/dl Globulin 4.5 gm/dl Albumin/Globulin Ratio 0.6 Procalcitonin 2.01 ng/ml Bedside Troponin I 0.030 ng/ml Bedside Hemoglobin 12.2 g/dl Bedside Hematocrit 36 % Bedside Sodium 135 mEq/L Bedside Potassium 5.0 mEq/L Bedside Chloride 98 mEq/L Bedside Total CO2 24 mEq/l Bedside Blood Urea Nitrogen 25 mg/dl Bedside Creatinine 1.5 mg/dl Bedside Glucose (other) 256 mg/dl Bedside Ionized Calcium (Norma) 1.05 mmol/l Bedside Lactic Acid Venous 1.03 mmol/L Test 02/07/17 22:33 02/07/17 23:20 02/08/17 05:47 02/08/17 08:17 Influenza Type A (RT-PCR) Neg for Influ A Influenza Type A Antigen Neg for Influ A Influenza Type B Antigen Neg for Influ B Influenza Type B (RT-PCR) Neg for Influ B Urine Color YELLOW Urine Appearance CLEAR Urine pH 6.0 Urine Specific [place] 1.023 Urine Protein 1+ Urine Glucose (UA) NEG Urine Ketones 1+ Urine Occult Blood 2+ Urine Nitrite POS Urine Bilirubin NEG Urine Urobilinogen NEG Urine Leukocyte Esterase SMALL Urine WBC (Auto) 5-10 /hpf Urine RBC (Auto) 0-4 /hpf Urine Hyaline Casts (Auto) 0 /lpf Urine Epithelial Cells (Auto) >30 /lpf Urine Bacteria (Auto) 3+ Urine Renal Epithelial Cells /lpf Urine Pathogenic Casts /lpf Creatinine 1.60 mg/dl Est Creatinine Clear Calc Drug Dose 22.6 ml/min Estimated GFR () 34.7 Estimated GFR (Non- 29.9 Bedside Glucose 231 mg/dl Test 02/08/17 11:30 Bedside Glucose 246 mg/dl Date/Time Source Procedure Growth Status 02/07/17 22:14 Blood Blood Culture Pending Received 02/07/17 22:04 Blood Blood Culture Pending Received 02/07/17 23:20 Urine,Catheterized Urine Culture Pending Received Assessment & Plan ASSESSMENT AND PLAN: This is an 81-year-old female who presents with abdominal pain 1. Abdominal pain and fever, - possible UTI ff up cultures on empiric Zosyn - possible Biliary colic, r/o Cholecystitis check LFTs, Liver uS Surgery consulted - from Constipation? Senokot S ordered KUB - referred pain from R Iliac bone lesion? - increased Fentanyl patch discussed with patient's daughter who requested Toradol discussed that patient has CKD and this might cause renal injury , she verbalized understanding and requested for this, accepting of risk 1 dose toradol IV ordered, low dose 2. History of hypertension - HOLD lisinopril for marginal BP 3. History of diabetes. - pharmacy consulted for Insulin management 4. History of hypothyroidism, continue Synthroid. 5. History of chronic diastolic congestive heart failure with a grade 1 diastolic dysfunction, on Lasix as needed. - monitor volume status 6. Metastatic renal cancer with skeletal metastasis and liver metastasis and also pathological fractures, - consulted Dr. Conner 7. Gastroesophageal reflux disease, continue Protonix. 8. Deep vein thrombosis prophylaxis, SCDs and heparin subcu. 9. Disposition: Expect to discharge home and follow up with the family doctor. Level 1 full code. discussed plan of care with patient and daughter Naz they are agreeable and comfortable with plan of care Current Inpatient Medications: Current Inpatient Medications Medications (Trade) Dose Ordered Sig/Suleiman Route Start Time Stop Time Status Last Admin Dose Admin Ioversol (Optiray 320) 100 ml UD PRN IV 02/07/17 22:15 02/11/17 22:14 Acetaminophen (Tylenol Tab) 650 mg Q4H PRN PO 02/08/17 00:45 03/10/17 00:44 Al Hydrox/Mg Hydrox/Simethicone (Maalox Max Susp) 15 ml Q4H PRN PO 02/08/17 00:45 03/10/17 00:44 Magnesium Hydroxide (Milk Of Magnesia Susp) 30 ml Q6H PRN PO 02/08/17 00:45 03/10/17 00:44 Polyethylene (Miralax Powder Packet) 17 gm DAILY PRN PO 02/08/17 02:30 03/10/17 02:29 Ondansetron HCl (Zofran Inj) 4 mg Q6H PRN IV 02/08/17 00:45 03/10/17 00:44 Heparin Sodium (Porcine) 5000 unit 5,000 unit Q12H SQ 02/08/17 09:00 03/10/17 08:59 Piperacillin Sod/ Tazobactam Sod/ Dextrose (Zosyn Iv/D5 100ml) 115 ml @ 28.75 mls/ hr Q8H IV 02/08/17 04:00 02/18/17 03:59 02/08/17 12:14 28.75 MLS/HR Calcium/Vitamin D (Caltrate Plus Tab) 1 tab DAILY PO 02/08/17 08:00 03/10/17 08:59 02/08/17 08:13 1 TAB Cyanocobalamin (Vitamin B-12 Tab) 1,000 mcg DAILY PO 02/08/17 08:00 03/10/17 08:59 Fentanyl (Duragesic Patch) 50 mcg Q3D@0900 TD 02/09/17 09:00 02/23/17 08:59 Acetaminophen/ Hydrocodone Bitart ([place] 7.5/325 Tab) 2 TAB FOR SEVERE PAIN Q4 PRN PO 02/08/17 00:45 02/22/17 00:44 02/08/17 12:21 1 TAB Levothyroxine Sodium 100 mcg 100 mcg DAILYBB PO 02/08/17 06:30 03/10/17 06:29 02/08/17 05:27 100 MCG Sodium Chloride (Nss 1000ml) 1,000 ml @ 75 mls/hr [id number] IV 02/08/17 02:30 03/10/17 02:29 02/08/17 02:33 75 MLS/HR Lisinopril (Zestril Tab) 20 mg DAILY PO 02/08/17 08:00 03/10/17 08:59 02/08/17 08:13 20 MG Pantoprazole Sodium (Protonix Tab) 40 mg DAILY PO 02/08/17 08:00 03/10/17 08:59 02/08/17 08:13 40 MG Insulin Detemir (Levemir Flexpen/ FlexTouch) 3 unit BID SC 02/08/17 08:00 03/10/17 08:59 02/08/17 08:28 3 UNIT Insulin Aspart (novoLOG ASPART) SLIDING SCALE G... ACHS SC 02/08/17 06:30 03/10/17 06:59 02/08/17 12:23 3 UNITS Vancomycin HCl (Consult) 1 ea UD PRN N/A 02/08/17 02:30 03/10/17 02:29 Piperacillin Sod/ Tazobactam Sod (Consult) 1 ea UD PRN N/A 02/08/17 02:30 03/10/17 02:29 Miscellaneous (Fentanyl Patch Remove & Waste) 1 ea Q3D@0859 N/A 02/09/17 08:59 03/11/17 08:58 Miscellaneous Information (Check Fentanyl Patch Placement) 1 ea QS N/A 02/08/17 03:00 03/10/17 02:59 02/08/17 08:13 1 EA Glucose (Glucose 40% Gel) 15-30 GRAMS 15 GRAMS... UD PRN PO 02/08/17 03:00 03/10/17 02:59 Glucose (Glucose Chew Tab) 4-8 Tablets 4 Tabl... UD PRN PO 02/08/17 03:00 03/10/17 02:59 Dextrose (Dextrose 50% 50ML Syringe) 25-50ML OF 50% DW IV FOR... UD PRN IV 02/08/17 03:00 03/10/17 02:59 Glucagon (Glucagon Inj) 1 mg UD PRN SQ 02/08/17 03:00 03/10/17 02:59 Miscellaneous Information (Consult Glycemic Management Pharmacy) 1 ea NOW STAT N/A 02/08/17 13:04 02/08/17 13:05 UNV
[2017-02-08] MEDS ORDERED: PHARMACY GLYCEMIC MGMT CONSULT PRN (13:12)
--- NOTE | 2017-02-08 13:52 | DIAGNOSTIC IMAGING REPORT ---
LEFT SHOULDER MIN 2 VIEWS ROUTINE CLINICAL HISTORY: Fx left proximal humerus fx trauma COMPARISON: None DISCUSSION: Slightly impacted fracture left humeral neck. No evidence of dislocation. Degenerative change acromioclavicular joint. There is no evidence for soft tissue swelling. Expansile lesion involving the left second and possibly third rib with potential of pleural component. This is been described previously. IMPRESSION: Fracture left humeral neck. Metastatic disease upper chest which is been described previously. Degenerative change left acromioclavicular joint. Electronically signed by: Gordon Marvin M.D. 02/08/2017 1:50 PM Dictated Date/Time: 02/08/2017 1:48 PM
[2017-02-08] MEDS: FENTANYL PATCH REMOVE & WASTE SCH (14:10)
[2017-02-08] MEDS: FENTANYL 75 MCG/HR TDSY TD SCH (14:12)
--- NOTE | 2017-02-08 14:59 | Pharmacy Progress Note ---
Glycemic Control Intl Consult Date of Service February 08, 2017. Scope Glycemic Pharmacist consulted by Dr Sabillon on 02/08/17 for glycemic control and to write orders per [facility] inpatient glycemic control protocol Objective Weight (Kilograms): 61.700 Accuchecks BSG (last 24hrs): Test 02/07/17 22:04 02/08/17 08:17 02/08/17 11:30 Random Glucose 246 mg/dl (70-99) Bedside Glucose 231 mg/dl (70-90) 246 mg/dl (70-90) Laboratory Data (last 24hrs) Test 02/07/17 22:04 02/07/17 22:21 02/08/17 05:47 Anion Gap 9.0 mmol/L 18.0 mmol/L BUN/Creatinine Ratio 16.5 Blood Urea Nitrogen 26 mg/dl Creatinine 1.60 mg/dl 1.60 mg/dl Hemoglobin A1c 8.1 % Potassium Level 4.9 mmol/L Sodium Level 135 mmol/L White Blood Count 12.74 K/uL Red Blood Count 3.73 M/uL Hemoglobin 10.8 g/dL Hematocrit 34.8 % Mean Corpuscular Volume 93.3 fL Mean Corpuscular Hemoglobin 29.0 pg Mean Corpuscular Hemoglobin Concent 31.0 g/dl Platelet Count 305 K/uL Mean Platelet Volume 10.1 fL Neutrophils (%) (Auto) 92.5 % Lymphocytes (%) (Auto) 3.5 % Monocytes (%) (Auto) 3.3 % Eosinophils (%) (Auto) 0.2 % Basophils (%) (Auto) 0.2 % Neutrophils # (Auto) 11.80 K/uL Lymphocytes # (Auto) 0.44 K/uL Monocytes # (Auto) 0.42 K/uL Eosinophils # (Auto) 0.02 K/uL Basophils # (Auto) 0.02 K/uL HbA1c Test 02/07/17 22:04 Hemoglobin A1c 8.1 % (4.5-5.6) H Recent Pertinent Medications Outpatient Anti-diabetic Regimen: * Levemir * 6 units SQ q AM * 3 units SQ q PM * A1c = 8.1 % 02/07/17 The patient is currently receiving: * Basal insulin: * Levemir 3 units every 12 hours * Bolus Insulin: * NovoLog Correction per scale AC/HS - Goal Range: Low 120 mg/dL - High 160 mg/dL - Correction Factor: 40 mg/dL/unit - Carb ratio of 1 unit per -- grams CHO consumed Risk Factors for Insulin Resistance: * Infection: vancomycin and piperacillin/tazobactam * IVF: NSS * Diet: regular Assessment & Plan ASSESSMENT: Initial: * ADA & AACE recommend a goal blood sugar range 140-180 mg/dl for the majority of critically ill & non-critically ill patients. * 81 y/o presumed type 2 diabetic who uses basal insulin as an outpatient * A1c indicates appropriate control for patient based on age/comorbidities * At home, it is noted that Ms Malagon feels hypoglycemia when BSG is ~100mg /dL * will utilize a higher, ADA recommended, goal range for this reason Currently, * BSGs elevated today - home basal insulin not ordered, however I hesitate to reorder this as we have added bolus insulin * continue same basal insulin at this time * titrate based on fasting BSG - re-eval tomorrow * NovoLog being used for bolus dosing * will add carb coverage to help gain better glycemic control * CF/CR based on the patient's weight and a stress of 2 PLAN FOR INPATIENT GLYCEMIC CONTROL: * Basal insulin: * Levemir 3 units SQ BID * Bolus insulin: * NovoLog SQ AC/HS - CF: 40mg/dL/unit - CR: 1 unit per 15g of CHO consumed - Goal: 140-180mg/dL per ADA recommendations * A1c * current, added to discharge instructions RECOMMENDATIONS FOR DISCHARGE: * * Please note that the plan above was derived based on current level of insulin resistance and hospital stress. These recommendations are appropriate for inpatient admission only. Plan of care upon discharge will need to be reassessed to avoid potential outpatient hypo/hyperglycemia. Thank you.
[2017-02-08 15:22] VITALS: BP 91/53; PULSE 81; TEMP 36.7; O2SAT 97
[2017-02-08] MEDS ORDERED: CEFEPIME CONSULT ACTIVE PRN ×2 (15:45)
--- NOTE | 2017-02-08 16:12 | ONCOLOGY CONSULTATION ---
DATE OF CONSULTATION: 02/08/2017 DATE OF CONSULTATION: 02/08/2017. CONSULTATION WAS REQUESTED BY: Dr. Tijerina. REASON FOR CONSULTATION: Due for chemo on Saturday02/08/2017. HISTORY OF PRESENT ILLNESS: Ms. Malagon is an 81-year-old woman whom I am treating for metastatic renal cell carcinoma. She was admitted today to [facility] with abdominal pain and fever. She was scheduled today for outpatient treatment for her metastatic renal cell cancer. She will not be treated due to her current medical problem. I will follow along while she remains hospitalized. She should keep her scheduled outpatient appointment for her next treatment. This treatment will be held. MTDD
[2017-02-08] MEDS ORDERED: SENNA 8.6 MG TAB PO PRN (17:00)
[2017-02-08] MEDS ORDERED: HYDROmorphone INJ 0.5 MG/0.5 ML SYR IV PRN (18:30)
[2017-02-08] MEDS ORDERED: HYDROmorphone INJ 0.5 MG/0.5 ML SYR IV ONE (19:00)
[2017-02-08] MEDS ORDERED: HYDROmorphone INJ 1 MG/ML SYR IV ONE (19:00)
[2017-02-08] MEDS ORDERED: DOCUSATE SODIUM/SENNA 50/8.6MG TAB PO ONE (19:00)
[2017-02-08] MEDS ORDERED: KETOROLAC TROMETHAMINE 15 MG/ML VIAL IV ONE (19:00)
[2017-02-08 19:36] LABS: BUN/CREATININE RATIO 13.9 (10-20); CALCIUM 7.2 mg/dl (8.5-10.1); CREATININE 1.5 mg/dl (0.60-1.20); POTASSIUM 4.6 mmol/L (3.5-5.1)
[2017-02-08] MEDS ORDERED: CEFEPIME IV 1,000 MG in DEXTROSE 5% 100ML IV SCH (20:00)
--- NOTE | 2017-02-08 20:20 | DIAGNOSTIC IMAGING REPORT ---
KUB HISTORY: Fever. Ileus. r/o obstruction, ileus COMPARISON: KUB 01/16/2012. Abdomen and pelvis CT 02/07/2017. FINDINGS: Gas-filled nondistended colon. There are few gas-filled nondistended loops of small bowel. No evidence for bowel obstruction. There is a metallic common bile duct stent and an IVC filter which are unchanged in position. Surgical clips within the left side the abdomen. Pathologic fracture within the right iliac bone is again noted. No renal calculi. No ureteral calculi. No pneumoperitoneum or pneumatosis. IMPRESSION: Multiple gas-filled loops of large and small bowel which are not significantly distended. No evidence for bowel obstruction. Electronically signed by: Donovan Pan M.D. 02/08/2017 8:19 PM Dictated Date/Time: 02/08/2017 8:17 PM
--- NOTE | 2017-02-08 22:52 | DIAGNOSTIC IMAGING REPORT ---
ABDOMINAL ULTRASOUND, RIGHT UPPER QUADRANT HISTORY: Fever. Right upper Quadrant abdominal pain. R/O CHOLECYSTITIS. COMPARISON: Abdominal ultrasound 05/31/2015. Abdomen and pelvis CT 02/07/2017. FINDINGS: Pancreas: Obscured by overlying bowel gas. Liver: Mildly enlarged measuring 20 cm in length. Multiple hepatic masses measuring up to 3.5 cm. There is suggestion of pneumobilia. Gallbladder: Multiple stones completely filling the gallbladder resulting in diffuse shadowing and suboptimal evaluation. Gallbladder wall is is normal in thickness measuring up to 2.5 mm. No pericholecystic fluid. CBD: A common bile duct stent is visualized. Right kidney: No hydronephrosis. IMPRESSION: 1. Multiple hepatic masses again noted consistent with metastatic disease. 2. A common bile duct stent is identified. No intrahepatic bile duct dilatation. 3. The gallbladder is completely filled with stones. No definite gallbladder wall thickening. Electronically signed by: Donovan Pan M.D. 02/08/2017 10:51 PM Dictated Date/Time: 02/08/2017 10:45 PM
[2017-02-08 23:37] VITALS: BP 87/50; PULSE 71; TEMP 36.5; O2SAT 97
[2017-02-09] VITALS (9 sets, daily range): BP systolic 101–194; BP diastolic 54–90; PULSE 77–112; TEMP 36.3–37.6; O2SAT 94–98
[2017-02-09] MEDS: SODIUM CHLORIDE 0.9% 1000ML 1,000 ML IV SCH ×2 (05:03→18:30)
[2017-02-09] MEDS: LEVOTHYROXINE 100 MCG TAB PO SCH (05:43)
[2017-02-09] MEDS: HYDROCODONE/ACETAMINOPHEN 7.5/325MG TAB PO PRN (06:30)
[2017-02-09] MEDS: INSULIN ASPART 100 UNITS/ML 3 ML PEN SC SCH ×4 (06:30→21:00)
[2017-02-09 06:54] LABS: BASO % 0.3 %; BASO ABS # 0.02 K/uL (0-0.2); COMPLETE YES; EOS % 2.8 %; HEMATOCRIT 29.7 % (37-47); IG% 0.3 %; LYMPH % 6.9 %; LYMPH ABS # 0.54 K/uL (1.2-3.4); MEAN CORPUSCULAR HEMOGLOBIN 29.1 pg (25-34); MEAN PLATELET VOLUME 10.6 fL (7.4-10.4); MONO % 12.4 %; NEUT % 77.3 %; PLATELET COUNT 243 K/uL (130-400); RED BLOOD COUNT 3.16 M/uL (4.2-5.4); WHITE BLOOD COUNT 7.77 K/uL (4.8-10.8)
[2017-02-09 07:26] LABS: BUN/CREATININE RATIO 13.7 (10-20); CALCIUM 7.1 mg/dl (8.5-10.1); CREATININE 1.6 mg/dl (0.60-1.20); MAGNESIUM 1.9 mg/dl (1.8-2.4); POTASSIUM 4.2 mmol/L (3.5-5.1)
[2017-02-09] MEDS: CHECK FENTANYL PATCH PLACEMENT SCH ×3 (07:54→23:53)
[2017-02-09] MEDS ORDERED: KETOROLAC TROMETHAMINE 15 MG/ML VIAL IV PRN (08:15)
[2017-02-09] MEDS: PANTOprazole SOD 40 MG TAB PO SCH (08:35)
[2017-02-09] MEDS: CYANOCOBALAMIN 500 MCG TAB (VIT B-12) PO SCH (08:36)
[2017-02-09] MEDS: CALCIUM 600MG + VIT D 400 IU TAB PO SCH (08:36)
[2017-02-09] MEDS: DOCUSATE SODIUM/SENNA 50/8.6MG TAB PO SCH (08:36)
[2017-02-09] MEDS: INSULIN DETEMIR FLEXPEN/FLEX TOUCH 100 UNITS/ML 3ML SC SCH ×2 (08:59→19:59)
[2017-02-09] MEDS: HEPARIN SOD 5000 UNIT/0.5 ML CARP SQ SCH ×2 (09:00→21:00)
[2017-02-09] MEDS ORDERED: FENTANYL 50 MCG/HR TDSY TD SCH (09:00)
--- NOTE | 2017-02-09 10:22 | Progress Note ---
Medicine Progress Note Date & Time of Visit: February 09, 2017 at 10:14. Subjective patient seen resting in bed, comfortable, smiling states she feels better today no abdominal pain , nausea tolerated diet well no BMs yet denies chest pain, dyspnea no problems with urination no other symptoms Objective Last 8 Hrs Date Time Temp Pulse Resp B/P Pulse Ox O2 Delivery O2 Flow Rate FiO2 02/09/17 08:00 94 Room Air 02/09/17 07:32 36.8 81 18 101/56 94 Room Air 02/09/17 03:42 36.3 77 20 118/54 94 Room Air Physical Exam: General- oriented x 3, not in distress, speaks in sentences with no effort Eyes-EOMI, anicteric Neck- no JVD Lungs- clear breath sounds bilaterally, no rales/wheezes Heart- regular rhythm; no murmurs, normal rate Abdomen- normal bowel sounds, non distended, soft, NO tenderness Extremities- no pretibial edema, no calf tenderness; peripheral pulses intact Neuro- alert, oriented x 3; no gross focal deficits Skin- warm & dry Laboratory Results: Last 24 Hours Test 02/08/17 11:30 02/08/17 14:35 02/08/17 16:37 02/08/17 19:05 Bedside Glucose 246 mg/dl 219 mg/dl Random Vancomycin Level 18.5 mcg/ml Sodium Level 138 mmol/L Potassium Level 4.6 mmol/L Chloride Level 106 mmol/L Carbon Dioxide Level 25 mmol/L Anion Gap 7.0 mmol/L Blood Urea Nitrogen 21 mg/dl Creatinine 1.50 mg/dl Est Creatinine Clear Calc Drug Dose 24.1 ml/min Estimated GFR () 37.5 Estimated GFR (Non- 32.3 BUN/Creatinine Ratio 13.9 Random Glucose 219 mg/dl Calcium Level 7.2 mg/dl Total Bilirubin 0.6 mg/dl Direct Bilirubin 0.4 mg/dl Aspartate Amino Transf (AST/SGOT) 29 U/L Alanine Aminotransferase (ALT/SGPT) 33 U/L Alkaline Phosphatase 201 U/L Total Protein 6.2 gm/dl Albumin 2.3 gm/dl Test 02/08/17 20:11 02/09/17 05:00 02/09/17 05:50 02/09/17 07:51 Bedside Glucose 213 mg/dl 118 mg/dl Sodium Level 140 mmol/L Potassium Level 4.2 mmol/L Chloride Level 108 mmol/L Carbon Dioxide Level 23 mmol/L Anion Gap 9.0 mmol/L Blood Urea Nitrogen 22 mg/dl Creatinine 1.60 mg/dl Est Creatinine Clear Calc Drug Dose 22.6 ml/min Estimated GFR () 34.7 Estimated GFR (Non- 29.9 BUN/Creatinine Ratio 13.7 Random Glucose 87 mg/dl Calcium Level 7.1 mg/dl Magnesium Level 1.9 mg/dl White Blood Count 7.77 K/uL Red Blood Count 3.16 M/uL Hemoglobin 9.2 g/dL Hematocrit 29.7 % Mean Corpuscular Volume 94.0 fL Mean Corpuscular Hemoglobin 29.1 pg Mean Corpuscular Hemoglobin Concent 31.0 g/dl Platelet Count 243 K/uL Mean Platelet Volume 10.6 fL Neutrophils (%) (Auto) 77.3 % Lymphocytes (%) (Auto) 6.9 % Monocytes (%) (Auto) 12.4 % Eosinophils (%) (Auto) 2.8 % Basophils (%) (Auto) 0.3 % Neutrophils # (Auto) 6.01 K/uL Lymphocytes # (Auto) 0.54 K/uL Monocytes # (Auto) 0.96 K/uL Eosinophils # (Auto) 0.22 K/uL Basophils # (Auto) 0.02 K/uL RDW Standard Deviation 52.4 fL RDW Coefficient of Variation 15.4 % Immature Granulocyte % (Auto) 0.3 % Immature Granulocyte # (Auto) 0.02 K/uL Assessment & Plan ASSESSMENT AND PLAN: This is an 81-year-old female who presents with abdominal pain 1. Abdominal pain and fever - UTI urine culture gram negative bacilli blood cultures pending on Cefepime Day 2 - referred pain from R Iliac bone lesion? no pain this morning increased Fentanyl patch discussed with patient's daughter who requested Toradol discussed that patient has CKD and this might cause renal injury , she verbalized understanding and requested for this, accepting of risk low dose toradol 1mg q12h as pain greatly controlled with toradol, per family continue gentle IV fluids - from Constipation? Senokot S ordered KUB: no obstruction - possible Biliary colic GB US: no cholecysitis, (+) GB filled with stone LFTs ok Surgery consulted CKD 3 - baseline crea 1.2-1.3 - remains at 1.6 hold lasix, lisinopril gentle IV fluids monitor while on toradol 2. History of hypertension - HOLD lisinopril for marginal BP 3. History of diabetes. - pharmacy consulted for Insulin management - on ISS 4. History of hypothyroidism, continue Synthroid. 5. History of chronic diastolic congestive heart failure with a grade 1 diastolic dysfunction, on Lasix as needed. - on the dry side - continue gentle IV fluids hold lasix 6. Metastatic renal cancer with skeletal metastasis and liver metastasis and also pathological fractures, - consulted Dr. Conner hold chemo for now 7. Gastroesophageal reflux disease, continue Protonix. 8. Deep vein thrombosis prophylaxis, SCDs and heparin subcu. 9. Disposition: Expect to discharge home and follow up with the family doctor. Level 1 full code. again discussed plan of care with patient and daughter Naz they are agreeable and comfortable with plan of care Current Inpatient Medications: Current Inpatient Medications Medications (Trade) Dose Ordered Sig/Suleiman Route Start Time Stop Time Status Last Admin Dose Admin Ioversol (Optiray 320) 100 ml UD PRN IV 02/07/17 22:15 02/11/17 22:14 Acetaminophen (Tylenol Tab) 650 mg Q4H PRN PO 02/08/17 00:45 03/10/17 00:44 Al Hydrox/Mg Hydrox/Simethicone (Maalox Max Susp) 15 ml Q4H PRN PO 02/08/17 00:45 03/10/17 00:44 Magnesium Hydroxide (Milk Of Magnesia Susp) 30 ml Q6H PRN PO 02/08/17 00:45 03/10/17 00:44 Polyethylene (Miralax Powder Packet) 17 gm DAILY PRN PO 02/08/17 02:30 03/10/17 02:29 Ondansetron HCl (Zofran Inj) 4 mg Q6H PRN IV 02/08/17 00:45 03/10/17 00:44 Heparin Sodium (Porcine) (Heparin Sq 5000 Unit/0.5ml) 5,000 unit Q12H SQ 02/08/17 09:00 03/10/17 08:59 Calcium/Vitamin D (Caltrate Plus Tab) 1 tab DAILY PO 02/08/17 08:00 03/10/17 08:59 02/09/17 08:36 1 TAB Cyanocobalamin (Vitamin B-12 Tab) 1,000 mcg DAILY PO 02/08/17 08:00 03/10/17 08:59 02/09/17 08:36 1,000 MCG Acetaminophen/ Hydrocodone Bitart ([place] 7.5/325 Tab) 2 TAB FOR SEVERE PAIN Q4 PRN PO 02/08/17 00:45 02/22/17 00:44 02/09/17 06:30 2 TAB Levothyroxine Sodium 100 mcg 100 mcg DAILYBB PO 02/08/17 06:30 03/10/17 06:29 02/09/17 05:43 100 MCG Sodium Chloride (Nss 1000ml) 1,000 ml @ 75 mls/hr [id number] IV 02/08/17 02:30 03/10/17 02:29 02/09/17 05:03 75 MLS/HR Pantoprazole Sodium (Protonix Tab) 40 mg DAILY PO 02/08/17 08:00 03/10/17 08:59 02/09/17 08:35 40 MG Insulin Detemir (Levemir Flexpen/ FlexTouch) 3 unit BID SC 02/08/17 08:00 03/10/17 08:59 Future hold 02/08/17 20:13 3 UNIT Insulin Aspart (novoLOG ASPART) SLIDING SCALE G... ACHS SC 02/08/17 06:30 03/10/17 06:59 02/08/17 20:12 1 UNITS Miscellaneous (Fentanyl Patch Remove & Waste) 1 ea Q3D@0859 N/A 02/09/17 08:59 03/11/17 08:58 02/08/17 14:10 1 EA Miscellaneous Information (Check Fentanyl Patch Placement) 1 ea QS N/A 02/08/17 03:00 03/10/17 02:59 02/09/17 07:54 1 EA Glucose (Glucose 40% Gel) 15-30 GRAMS 15 GRAMS... UD PRN PO 02/08/17 03:00 03/10/17 02:59 Glucose (Glucose Chew Tab) 4-8 Tablets 4 Tabl... UD PRN PO 02/08/17 03:00 03/10/17 02:59 Dextrose (Dextrose 50% 50ML Syringe) 25-50ML OF 50% DW IV FOR... UD PRN IV 02/08/17 03:00 03/10/17 02:59 Glucagon (Glucagon Inj) 1 mg UD PRN SQ 02/08/17 03:00 03/10/17 02:59 Miscellaneous Information (Consult Glycemic Management Pharmacy) 1 ea UD PRN N/A 02/08/17 13:12 03/10/17 13:11 Fentanyl 75 mcg 75 mcg Q3D@0900 TD 02/08/17 14:00 02/22/17 13:59 02/08/17 14:12 75 MCG Cefepime HCl/ Dextrose (Maxipime IV/D5 100ml) 111.3 ml @ 222.6 mls/ hr Q24H IV 02/08/17 20:00 02/18/17 19:59 02/08/17 20:05 222.6 MLS/HR Cefepime HCl (Consult) 1 ea UD PRN N/A 02/08/17 15:45 03/10/17 15:44 Senna (Senokot Tab) 8.6 mg DAILY PRN PO 02/08/17 17:00 03/10/17 16:59 Senna/Docusate Sodium (Senokot S Tab) 1 tab QAM PO 02/09/17 08:00 03/11/17 07:59 02/09/17 08:36 1 TAB Ketorolac Tromethamine (Toradol Inj) 15 mg Q12H PRN IV 02/09/17 08:15 02/14/17 08:14
--- NOTE | 2017-02-09 11:36 | Surgery Consultation ---
Consultation Date of Consultation: February 09, 2017. Attending Physician: Jesu Sabillon MD History of Present Illness 81 year old with metastatic renal cell ca admitted for RLQ pain and fever. being treated for uti. her pain is currently better. no n/v. Past Medical/Surgical History Medical Problems: (1) Sepsis Status: Acute (2) UTI (urinary tract infection) Status: Acute Family History Patient reports no known family medical history. Social History Smoking Status: Never Smoker Drug Use: none Marital Status: Housing Status: lives with family Occupation Status: retired Allergies Coded Allergies: Adhesives (Verified Allergy, Mild, LOCAL SKIN IRRITATION, BLISTERS, ) Home Medications Scheduled Calcium/Vitamin D (Caltrate 600 Plus *), 1 TAB PO DAILY Cyanocobalamin (Vitamin B12 500MCG), 1,000 MCG PO DAILY Denosumab (Xgeva), 1 DOSE SC MONTHLY Fentanyl (Duragesic *), 50 MCG TD [id number] Insulin Detemir (Levemir Flextouch), 6 UNITS SQ QAM Insulin Detemir (Levemir Flextouch), 3 UNITS SQ QPM Levothyroxine Sodium (Synthroid), 100 MCG PO DAILY Lisinopril (Lisinopril), 20 MG PO DAILY Pantoprazole (Protonix), 40 MG PO DAILY [Opdiva], 1 DOSE IV. [id number] Scheduled PRN Furosemide (Lasix), 20 MG PO DAILY PRN for EDEMA Hydrocodone/Acetaminophen 7.5MG/325MG ([place] 7.5MG/325MG), 1-2 TAB PO Q4 PRN for Pain Ondansetron Tab (Zofran), 8 MG PO Q8 PRN for Nausea Senna (Senokot), 1 TAB PO DAILY PRN for Constipation Current Inpatient Medications Current Inpatient Medications Medications (Trade) Dose Ordered Sig/Suleiman Route Start Time Stop Time Status Last Admin Dose Admin Ioversol (Optiray 320) 100 ml UD PRN IV 02/07/17 22:15 02/11/17 22:14 Acetaminophen (Tylenol Tab) 650 mg Q4H PRN PO 02/08/17 00:45 03/10/17 00:44 Al Hydrox/Mg Hydrox/Simethicone (Maalox Max Susp) 15 ml Q4H PRN PO 02/08/17 00:45 03/10/17 00:44 Magnesium Hydroxide (Milk Of Magnesia Susp) 30 ml Q6H PRN PO 02/08/17 00:45 03/10/17 00:44 Polyethylene (Miralax Powder Packet) 17 gm DAILY PRN PO 02/08/17 02:30 03/10/17 02:29 Ondansetron HCl (Zofran Inj) 4 mg Q6H PRN IV 02/08/17 00:45 03/10/17 00:44 Heparin Sodium (Porcine) (Heparin Sq 5000 Unit/0.5ml) 5,000 unit Q12H SQ 02/08/17 09:00 03/10/17 08:59 Calcium/Vitamin D (Caltrate Plus Tab) 1 tab DAILY PO 02/08/17 08:00 03/10/17 08:59 02/09/17 08:36 1 TAB Cyanocobalamin (Vitamin B-12 Tab) 1,000 mcg DAILY PO 02/08/17 08:00 03/10/17 08:59 02/09/17 08:36 1,000 MCG Acetaminophen/ Hydrocodone Bitart ([place] 7.5/325 Tab) 2 TAB FOR SEVERE PAIN Q4 PRN PO 02/08/17 00:45 02/22/17 00:44 02/09/17 06:30 2 TAB Levothyroxine Sodium 100 mcg 100 mcg DAILYBB PO 02/08/17 06:30 03/10/17 06:29 02/09/17 05:43 100 MCG Sodium Chloride (Nss 1000ml) 1,000 ml @ 75 mls/hr [id number] IV 02/08/17 02:30 03/10/17 02:29 02/09/17 05:03 75 MLS/HR Pantoprazole Sodium (Protonix Tab) 40 mg DAILY PO 02/08/17 08:00 03/10/17 08:59 02/09/17 08:35 40 MG Insulin Detemir (Levemir Flexpen/ FlexTouch) 3 unit BID SC 02/08/17 08:00 03/10/17 08:59 Future hold 02/08/17 20:13 3 UNIT Insulin Aspart (novoLOG ASPART) SLIDING SCALE G... ACHS SC 02/08/17 06:30 03/10/17 06:59 02/08/17 20:12 1 UNITS Miscellaneous (Fentanyl Patch Remove & Waste) 1 ea Q3D@0859 N/A 02/09/17 08:59 03/11/17 08:58 02/08/17 14:10 1 EA Miscellaneous Information (Check Fentanyl Patch Placement) 1 ea QS N/A 02/08/17 03:00 03/10/17 02:59 02/09/17 07:54 1 EA Glucose (Glucose 40% Gel) 15-30 GRAMS 15 GRAMS... UD PRN PO 02/08/17 03:00 03/10/17 02:59 Glucose (Glucose Chew Tab) 4-8 Tablets 4 Tabl... UD PRN PO 02/08/17 03:00 03/10/17 02:59 Dextrose (Dextrose 50% 50ML Syringe) 25-50ML OF 50% DW IV FOR... UD PRN IV 02/08/17 03:00 03/10/17 02:59 Glucagon (Glucagon Inj) 1 mg UD PRN SQ 02/08/17 03:00 03/10/17 02:59 Miscellaneous Information (Consult Glycemic Management Pharmacy) 1 ea UD PRN N/A 02/08/17 13:12 03/10/17 13:11 Fentanyl 75 mcg 75 mcg Q3D@0900 TD 02/08/17 14:00 02/22/17 13:59 02/08/17 14:12 75 MCG Cefepime HCl/ Dextrose (Maxipime IV/D5 100ml) 111.3 ml @ 222.6 mls/ hr Q24H IV 02/08/17 20:00 02/18/17 19:59 02/08/17 20:05 222.6 MLS/HR Cefepime HCl (Consult) 1 ea UD PRN N/A 02/08/17 15:45 03/10/17 15:44 Senna (Senokot Tab) 8.6 mg DAILY PRN PO 02/08/17 17:00 03/10/17 16:59 Senna/Docusate Sodium (Senokot S Tab) 1 tab QAM PO 02/09/17 08:00 03/11/17 07:59 02/09/17 08:36 1 TAB Ketorolac Tromethamine (Toradol Inj) 15 mg Q12H PRN IV 02/09/17 08:15 02/14/17 08:14 Review of Systems Constitutional: + weakness Abdomen: + pain Musculoskeletal: + joint pain, + muscle pain Physical Exam Date Time Temp Pulse Resp B/P Pulse Ox O2 Delivery O2 Flow Rate FiO2 02/09/17 08:00 94 Room Air 02/09/17 07:32 36.8 81 18 101/56 94 Room Air 02/09/17 03:42 36.3 77 20 118/54 94 Room Air 02/09/17 00:00 Room Air 02/08/17 23:37 36.5 71 16 87/50 97 Room Air 02/08/17 16:10 Room Air 02/08/17 15:22 36.7 81 17 91/53 97 Room Air General Appearance: no apparent distress Head: normocephalic, atraumatic Eyes: EOMI ENT: hearing grossly normal Neck: no JVD Respiratory/Chest: no respiratory distress, no accessory muscle use Abdomen/GI: soft, + pertinent finding (tenderness over right acetabulum more than abdomen) Neurologic/Psych: alert, oriented x 3 Skin: normal color, warm/dry Laboratory Results Last 24 Hours Test 02/08/17 14:35 02/08/17 16:37 02/08/17 19:05 02/08/17 20:11 Random Vancomycin Level 18.5 mcg/ml Bedside Glucose 219 mg/dl 213 mg/dl Sodium Level 138 mmol/L Potassium Level 4.6 mmol/L Chloride Level 106 mmol/L Carbon Dioxide Level 25 mmol/L Anion Gap 7.0 mmol/L Blood Urea Nitrogen 21 mg/dl Creatinine 1.50 mg/dl Est Creatinine Clear Calc Drug Dose 24.1 ml/min Estimated GFR () 37.5 Estimated GFR (Non- 32.3 BUN/Creatinine Ratio 13.9 Random Glucose 219 mg/dl Calcium Level 7.2 mg/dl Total Bilirubin 0.6 mg/dl Direct Bilirubin 0.4 mg/dl Aspartate Amino Transf (AST/SGOT) 29 U/L Alanine Aminotransferase (ALT/SGPT) 33 U/L Alkaline Phosphatase 201 U/L Total Protein 6.2 gm/dl Albumin 2.3 gm/dl Test 02/09/17 05:00 02/09/17 05:50 02/09/17 07:51 Sodium Level 140 mmol/L Potassium Level 4.2 mmol/L Chloride Level 108 mmol/L Carbon Dioxide Level 23 mmol/L Anion Gap 9.0 mmol/L Blood Urea Nitrogen 22 mg/dl Creatinine 1.60 mg/dl Est Creatinine Clear Calc Drug Dose 22.6 ml/min Estimated GFR () 34.7 Estimated GFR (Non- 29.9 BUN/Creatinine Ratio 13.7 Random Glucose 87 mg/dl Calcium Level 7.1 mg/dl Magnesium Level 1.9 mg/dl White Blood Count 7.77 K/uL Red Blood Count 3.16 M/uL Hemoglobin 9.2 g/dL Hematocrit 29.7 % Mean Corpuscular Volume 94.0 fL Mean Corpuscular Hemoglobin 29.1 pg Mean Corpuscular Hemoglobin Concent 31.0 g/dl Platelet Count 243 K/uL Mean Platelet Volume 10.6 fL Neutrophils (%) (Auto) 77.3 % Lymphocytes (%) (Auto) 6.9 % Monocytes (%) (Auto) 12.4 % Eosinophils (%) (Auto) 2.8 % Basophils (%) (Auto) 0.3 % Neutrophils # (Auto) 6.01 K/uL Lymphocytes # (Auto) 0.54 K/uL Monocytes # (Auto) 0.96 K/uL Eosinophils # (Auto) 0.22 K/uL Basophils # (Auto) 0.02 K/uL RDW Standard Deviation 52.4 fL RDW Coefficient of Variation 15.4 % Immature Granulocyte % (Auto) 0.3 % Immature Granulocyte # (Auto) 0.02 K/uL Bedside Glucose 118 mg/dl Assessment & Plan RLQ pain no indication this is gallbladder related as family thought may have been suspect the pain is from the lytic metastatic lesion on acetabulum. worse with standing. currently pain controlled no indication for any surgical intervention at this time. please call if we can help.
--- NOTE | 2017-02-09 13:30 | Pharmacy Progress Note ---
Glycemic Control: Progress Nt Date of Service February 09, 2017. Scope Glycemic Pharmacist consulted by Dr Sabillon on 02/08/17 for glycemic control and to write orders per [facility] inpatient glycemic control protocol. Objective Accuchecks BSG (last 24hrs): Test 02/08/17 16:37 02/08/17 19:05 02/08/17 20:11 02/09/17 05:00 Bedside Glucose 219 mg/dl (70-90) 213 mg/dl (70-90) Random Glucose 219 mg/dl (70-99) 87 mg/dl (70-99) Test 02/09/17 07:51 02/09/17 11:35 Bedside Glucose 118 mg/dl (70-90) 182 mg/dl (70-90) Laboratory Data (last 24hrs) Test 02/08/17 19:05 02/09/17 05:00 02/09/17 05:50 Anion Gap 7.0 mmol/L 9.0 mmol/L BUN/Creatinine Ratio 13.9 13.7 Blood Urea Nitrogen 21 mg/dl 22 mg/dl Creatinine 1.50 mg/dl 1.60 mg/dl Potassium Level 4.6 mmol/L 4.2 mmol/L Sodium Level 138 mmol/L 140 mmol/L White Blood Count 7.77 K/uL Red Blood Count 3.16 M/uL Hemoglobin 9.2 g/dL Hematocrit 29.7 % Mean Corpuscular Volume 94.0 fL Mean Corpuscular Hemoglobin 29.1 pg Mean Corpuscular Hemoglobin Concent 31.0 g/dl Platelet Count 243 K/uL Mean Platelet Volume 10.6 fL Neutrophils (%) (Auto) 77.3 % Lymphocytes (%) (Auto) 6.9 % Monocytes (%) (Auto) 12.4 % Eosinophils (%) (Auto) 2.8 % Basophils (%) (Auto) 0.3 % Neutrophils # (Auto) 6.01 K/uL Lymphocytes # (Auto) 0.54 K/uL Monocytes # (Auto) 0.96 K/uL Eosinophils # (Auto) 0.22 K/uL Basophils # (Auto) 0.02 K/uL HbA1c: Test 02/07/17 22:04 Hemoglobin A1c 8.1 % (4.5-5.6) H Recent Pertinent Medications Outpatient Anti-diabetic Regimen: * Levemir * 6 units SQ q AM * 3 units SQ q PM * A1c = 8.1 % 02/07/17 The patient is currently receiving: * Basal insulin: * Levemir 3 units every 12 hours * Bolus Insulin: * NovoLog Correction per scale AC/HS - Goal Range: Low 140 mg/dL - High 180 mg/dL - Correction Factor: 40 mg/dL/unit - Carb ratio of 1 unit per 15 grams CHO consumed Risk Factors for Insulin Resistance: * Infection: cefepime IV * IVF: NSS * Diet: regular Assessment & Plan ASSESSMENT: Initial: * ADA & AACE recommend a goal blood sugar range 140-180 mg/dl for the majority of critically ill & non-critically ill patients. * 81 y/o presumed type 2 diabetic who uses basal insulin as an outpatient * A1c indicates appropriate control for patient based on age/comorbidities * At home, it is noted that Ms Malagon feels hypoglycemia when BSG is ~100mg /dL * will utilize a higher, ADA recommended, goal range for this reason Currently, * BSGs near goal - fasting BSG today below goal and may have felt "hypoglycemic " to [place] * hold AM Levemir for this reason * continue Levemir (at reduced dose) this PM * titrate based on fasting BSG - re-eval tomorrow * NovoLog being used for bolus dosing * appears to be appropriate at this time - no change - if pt falls back toward 100mg/dL - may consider removing carb ratio PLAN FOR INPATIENT GLYCEMIC CONTROL: * Basal insulin: * Levemir 3 units SQ BID (AM dose held today) * Bolus insulin: * NovoLog SQ AC/HS - CF: 40mg/dL/unit - CR: 1 unit per 15g of CHO consumed - Goal: 140-180mg/dL per ADA recommendations * A1c * current, added to discharge instructions RECOMMENDATIONS FOR DISCHARGE: * Likely, Ms Malagon can continue home regimen at discharge. * Please note that the plan above was derived based on current level of insulin resistance and hospital stress. These recommendations are appropriate for inpatient admission only. Plan of care upon discharge will need to be reassessed to avoid potential outpatient hypo/hyperglycemia. Thank you.
[2017-02-09] MEDS: ONDANSETRON INJ 2 MG/ML 2 ML VIAL IV PRN (14:13)
[2017-02-09] MEDS ORDERED: HydrALAZINE HCL 20 MG/ML VIAL ONE (14:22)
[2017-02-09] MEDS ORDERED: AMLODIPINE BESYLATE 5 MG TAB PO ONE (14:30)
[2017-02-09] MEDS ORDERED: PIPERACILL/TAZOBAC CONSULT ACTIVE SCH (14:44)
--- NOTE | 2017-02-09 14:57 | DIAGNOSTIC IMAGING REPORT ---
CHEST ONE VIEW PORTABLE HISTORY: hypoxia, r/o vascular congestion COMPARISON: Chest 02/07/2017. FINDINGS: No pneumothorax. The heart remains mildly enlarged. Surgical clips within the upper abdomen. There is a metallic common bile duct stent. Interstitial and vascular thickening has progressed. There are trace bilateral pleural effusions. Left humeral neck fracture is again noted. Metastatic disease within the left lung apex. Gas at the right hemidiaphragm is likely due to the interposed colon as seen on the prior CT examination. IMPRESSION: 1. Mild interstitial pulmonary edema which has progressed. 2. Trace bilateral pleural effusions. Electronically signed by: Donovan Pan M.D. 02/09/2017 2:55 PM Dictated Date/Time: 02/09/2017 2:53 PM
[2017-02-09] MEDS ORDERED: PIPERACILL/TAZOBAC IV 3.375 GM in DEXTROSE 5% 100ML IV SCH ×2 (15:00→20:00)
[2017-02-09] MEDS ORDERED: NURSING VERBAL MED ORDER ONE ×2 (19:45→21:30)
[2017-02-09] MEDS: MAGNESIUM HYDROXIDE SUSP 30 ML UDC PO PRN (20:01)
[2017-02-09] MEDS ORDERED: INSULIN ASPART 100 UNITS/ML 3 ML PEN SC STA (21:48)
[2017-02-09] MEDS: PIPERACILL/TAZOBAC IV 3.375 GM in DEXTROSE 5% 100ML 100 ML IV SCH (22:08)
[2017-02-09] MEDS ORDERED: SOAP SUDS ENEMA PR PRN (22:45)
[2017-02-10] VITALS (7 sets, daily range): BP systolic 102–127; BP diastolic 58–72; PULSE 70–84; TEMP 36.5–36.9; O2SAT 93–99
[2017-02-10] MEDS ORDERED: NURSING VERBAL MED ORDER ONE
[2017-02-10] MEDS: PIPERACILL/TAZOBAC IV 3.375 GM in DEXTROSE 5% 100ML 100 ML IV SCH (05:46)
[2017-02-10] MEDS: LEVOTHYROXINE 100 MCG TAB PO SCH (05:46)
[2017-02-10 05:47] LABS: BASO % 0.4 %; BASO ABS # 0.03 K/uL (0-0.2); COMPLETE YES; EOS % 2.2 %; HEMATOCRIT 28.5 % (37-47); IG% 0.6 %; LYMPH % 9.8 %; LYMPH ABS # 0.67 K/uL (1.2-3.4); MEAN CELL VOLUME 93.4 fL (80-100); MEAN CORPUSCULAR HEMOGLOBIN 29.5 pg (25-34); MEAN CORPUSCULAR HGB CONC 31.6 g/dl (32-36); MEAN PLATELET VOLUME 9.8 fL (7.4-10.4); MONO % 9.3 %; NEUT % 77.7 %; PLATELET COUNT 232 K/uL (130-400); RED BLOOD COUNT 3.05 M/uL (4.2-5.4); WHITE BLOOD COUNT 6.85 K/uL (4.8-10.8)
[2017-02-10 06:25] LABS: CALCIUM 6.9 mg/dl (8.5-10.1); CREATININE 1.6 mg/dl (0.60-1.20); MAGNESIUM 1.9 mg/dl (1.8-2.4); POTASSIUM 4.3 mmol/L (3.5-5.1)
[2017-02-10] MEDS ORDERED: AMLODIPINE BESYLATE 5 MG TAB PO SCH (08:00)
[2017-02-10] MEDS: CHECK FENTANYL PATCH PLACEMENT SCH ×3 (08:15→23:52)
[2017-02-10] MEDS: DOCUSATE SODIUM/SENNA 50/8.6MG TAB PO SCH (08:34)
[2017-02-10] MEDS: PANTOprazole SOD 40 MG TAB PO SCH (08:34)
[2017-02-10] MEDS: CALCIUM 600MG + VIT D 400 IU TAB PO SCH (08:34)
[2017-02-10] MEDS: CYANOCOBALAMIN 500 MCG TAB (VIT B-12) PO SCH (08:35)
[2017-02-10] MEDS: HEPARIN SOD 5000 UNIT/0.5 ML CARP SQ SCH ×2 (08:39→21:00)
[2017-02-10] MEDS ORDERED: ROCEPHIN-CONSULT PHARMACY PRN (08:39)
--- NOTE | 2017-02-10 08:49 | Progress Note ---
Medicine Progress Note Date & Time of Visit: February 10, 2017 at 08:35. Subjective patient seen resting in bed, comfortable states she feels fine just tired RLQ pain is mild, no nausea (+) BM last night no nausea no dyspnea, palpitations, leg pain no other symptoms Objective Last 8 Hrs Date Time Temp Pulse Resp B/P Pulse Ox O2 Delivery O2 Flow Rate FiO2 02/10/17 03:55 36.6 71 18 105/58 99 Room Air Physical Exam: General- oriented x 3, not in distress, speaks in sentences with no effort Eyes-EOMI, anicteric Neck- no JVD Lungs- clear breath sounds bilaterally, no rales/wheezes Heart- regular rhythm; no murmurs, normal rate Abdomen- normal bowel sounds, non distended, soft, NO tenderness Extremities- no pretibial edema, no calf tenderness; peripheral pulses intact Neuro- alert, oriented x 3; no gross focal deficits Skin- warm & dry Laboratory Results: Last 24 Hours Test 02/09/17 11:35 02/09/17 14:24 02/09/17 16:39 02/09/17 20:24 Bedside Glucose 182 mg/dl 196 mg/dl 249 mg/dl 330 mg/dl Test 02/10/17 05:26 02/10/17 08:04 White Blood Count 6.85 K/uL Red Blood Count 3.05 M/uL Hemoglobin 9.0 g/dL Hematocrit 28.5 % Mean Corpuscular Volume 93.4 fL Mean Corpuscular Hemoglobin 29.5 pg Mean Corpuscular Hemoglobin Concent 31.6 g/dl Platelet Count 232 K/uL Mean Platelet Volume 9.8 fL Neutrophils (%) (Auto) 77.7 % Lymphocytes (%) (Auto) 9.8 % Monocytes (%) (Auto) 9.3 % Eosinophils (%) (Auto) 2.2 % Basophils (%) (Auto) 0.4 % Neutrophils # (Auto) 5.32 K/uL Lymphocytes # (Auto) 0.67 K/uL Monocytes # (Auto) 0.64 K/uL Eosinophils # (Auto) 0.15 K/uL Basophils # (Auto) 0.03 K/uL RDW Standard Deviation 53.0 fL RDW Coefficient of Variation 15.5 % Immature Granulocyte % (Auto) 0.6 % Immature Granulocyte # (Auto) 0.04 K/uL Sodium Level 140 mmol/L Potassium Level 4.3 mmol/L Chloride Level 109 mmol/L Carbon Dioxide Level 25 mmol/L Anion Gap 6.0 mmol/L Blood Urea Nitrogen 21 mg/dl Creatinine 1.60 mg/dl Est Creatinine Clear Calc Drug Dose 22.6 ml/min Estimated GFR () 34.7 Estimated GFR (Non- 29.9 BUN/Creatinine Ratio 13.0 Random Glucose 176 mg/dl Calcium Level 6.9 mg/dl Magnesium Level 1.9 mg/dl Albumin 1.9 gm/dl Bedside Glucose 193 mg/dl Assessment & Plan ASSESSMENT AND PLAN: This is an 81-year-old female with 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 pain seems to be controlled adequately overall increased Fentanyl patch to 75 mcg discussed with patient's daughter who requested Toradol discussed that patient has CKD and this might cause renal injury , she verbalized understanding and requested for this, accepting of risk low dose toradol 1mg q12h as pain greatly controlled with toradol, per family crea stable at 1.6, monitor, held IV fluids secondary to congestion on Sennokot S, Milk of Mg - from Constipation? Senokot S ordered, Milk of Mg KUB: no obstruction (+) BM- moderate - possible Biliary colic GB US: no cholecysitis, (+) GB filled with stone LFTs ok Surgery consulted, appreciate the recommendations CKD 3 - baseline crea 1.2-1.3 - remains at 1.6 hold lasix, lisinopril hold gentle IV fluids due to congestion monitor while on toradol History of hypertension - HOLD lisinopril for marginal BP - yesterday, patient had increased pain after eating BP highly elevated, sats 89% on room air reported nausea given Toradol, Zofran CXR possible mild congestion BP and HR improved placed on o2 by nasal cannula improved Cefepime changed to Zosyn IV fluids held - overall improved today History of diabetes. - pharmacy consulted for Insulin management - on ISS History of hypothyroidism, continue Synthroid. History of chronic diastolic congestive heart failure with a grade 1 diastolic dysfunction, on Lasix as needed. 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 Ubaldo virk chemo for now Gastroesophageal reflux disease, continue Protonix. Deep vein thrombosis prophylaxis, SCDs and heparin subcu. Disposition: Expect to discharge home and follow up with the family doctor. Level 1 full code. discussed plan of care with patient and daughter Naz they are agreeable and comfortable with plan of care Current Inpatient Medications: Current Inpatient Medications Medications (Trade) Dose Ordered Sig/Suleiman Route Start Time Stop Time Status Last Admin Dose Admin Ioversol (Optiray 320) 100 ml UD PRN IV 02/07/17 22:15 02/11/17 22:14 Acetaminophen (Tylenol Tab) 650 mg Q4H PRN PO 02/08/17 00:45 03/10/17 00:44 Al Hydrox/Mg Hydrox/Simethicone (Maalox Max Susp) 15 ml Q4H PRN PO 02/08/17 00:45 03/10/17 00:44 Magnesium Hydroxide (Milk Of Magnesia Susp) 30 ml Q6H PRN PO 02/08/17 00:45 03/10/17 00:44 02/09/17 20:01 30 ML Polyethylene (Miralax Powder Packet) 17 gm DAILY PRN PO 02/08/17 02:30 03/10/17 02:29 Ondansetron HCl (Zofran Inj) 4 mg Q6H PRN IV 02/08/17 00:45 03/10/17 00:44 02/09/17 14:13 4 MG Heparin Sodium (Porcine) (Heparin Sq 5000 Unit/0.5ml) 5,000 unit Q12H SQ 02/08/17 09:00 03/10/17 08:59 Calcium/Vitamin D (Caltrate Plus Tab) 1 tab DAILY PO 02/08/17 08:00 03/10/17 08:59 02/09/17 08:36 1 TAB Cyanocobalamin (Vitamin B-12 Tab) 1,000 mcg DAILY PO 02/08/17 08:00 03/10/17 08:59 02/09/17 08:36 1,000 MCG Acetaminophen/ Hydrocodone Bitart ([place] 7.5/325 Tab) 2 TAB FOR SEVERE PAIN Q4 PRN PO 02/08/17 00:45 02/22/17 00:44 02/09/17 06:30 2 TAB Levothyroxine Sodium (Synthroid Tab) 100 mcg DAILYBB PO 02/08/17 06:30 03/10/17 06:29 02/10/17 05:46 100 MCG Pantoprazole Sodium (Protonix Tab) 40 mg DAILY PO 02/08/17 08:00 03/10/17 08:59 02/09/17 08:35 40 MG Insulin Detemir (Levemir Flexpen/ FlexTouch) 3 unit BID SC 02/08/17 08:00 03/10/17 08:59 Future hold 02/09/17 19:59 3 UNIT Insulin Aspart (novoLOG ASPART) SLIDING SCALE G... ACHS SC 02/08/17 06:30 03/10/17 06:29 02/09/17 18:46 4 UNITS Miscellaneous (Fentanyl Patch Remove & Waste) 1 ea Q3D@0859 N/A 02/09/17 08:59 03/11/17 08:58 02/08/17 14:10 1 EA Miscellaneous Information (Check Fentanyl Patch Placement) 1 ea QS N/A 02/08/17 03:00 03/10/17 02:59 02/09/17 23:53 1 EA Glucose (Glucose 40% Gel) 15-30 GRAMS 15 GRAMS... UD PRN PO 02/08/17 03:00 03/10/17 02:59 Glucose (Glucose Chew Tab) 4-8 Tablets 4 Tabl... UD PRN PO 02/08/17 03:00 03/10/17 02:59 Dextrose (Dextrose 50% 50ML Syringe) 25-50ML OF 50% DW IV FOR... UD PRN IV 02/08/17 03:00 03/10/17 02:59 Glucagon (Glucagon Inj) 1 mg UD PRN SQ 02/08/17 03:00 03/10/17 02:59 Miscellaneous Information (Consult Glycemic Management Pharmacy) 1 ea UD PRN N/A 02/08/17 13:12 03/10/17 13:11 Fentanyl (Duragesic Patch) 75 mcg Q3D@0900 TD 02/08/17 14:00 02/22/17 13:59 02/08/17 14:12 75 MCG Senna (Senokot Tab) 8.6 mg DAILY PRN PO 02/08/17 17:00 03/10/17 16:59 Senna/Docusate Sodium (Senokot S Tab) 1 tab QAM PO 02/09/17 08:00 03/11/17 07:59 02/09/17 08:36 1 TAB Ketorolac Tromethamine (Toradol Inj) 15 mg Q12H PRN IV 02/09/17 08:15 02/14/17 08:14 02/09/17 14:19 15 MG Piperacillin Sod/ Tazobactam Sod 1 ea 1 ea UD N/A 02/09/17 14:44 03/11/17 14:43 Piperacillin Sod/ Tazobactam Sod/ Dextrose (Zosyn Iv/D5 100ml) 115 ml @ 28.75 mls/ hr Q8H IV 02/09/17 22:00 02/19/17 21:59 02/10/17 05:46 28.75 MLS/HR Miscellaneous (Soap Suds Enema) 1 ea DAILY PRN MI 02/09/17 22:45 03/11/17 22:44
[2017-02-10] MEDS: INSULIN DETEMIR FLEXPEN/FLEX TOUCH 100 UNITS/ML 3ML SC SCH ×2 (08:56→19:51)
[2017-02-10] MEDS: CEFTRIAXONE SOD INJ 1000 MG in DEXTROSE 5% 50ML IV SCH (08:57)
[2017-02-10] MEDS: INSULIN ASPART 100 UNITS/ML 3 ML PEN SC SCH ×4 (08:57→21:15)
[2017-02-10] MEDS: HYDROCODONE/ACETAMINOPHEN 7.5/325MG TAB PO PRN ×2 (10:45→23:53)
--- NOTE | 2017-02-10 11:44 | Pharmacy Progress Note ---
Glycemic Control: Progress Nt Date of Service February 10, 2017. Scope Glycemic Pharmacist consulted by Dr Sabillon on 02/08/17 for glycemic control and to write orders per [facility] inpatient glycemic control protocol. Objective Accuchecks BSG (last 24hrs): Test 02/09/17 14:24 02/09/17 16:39 02/09/17 20:24 02/10/17 05:26 Bedside Glucose 196 mg/dl (70-90) 249 mg/dl (70-90) 330 mg/dl (70-90) Random Glucose 176 mg/dl (70-99) Test 02/10/17 08:04 02/10/17 11:24 Bedside Glucose 193 mg/dl (70-90) 251 mg/dl (70-90) Laboratory Data (last 24hrs) Test 02/10/17 05:26 Anion Gap 6.0 mmol/L BUN/Creatinine Ratio 13.0 Blood Urea Nitrogen 21 mg/dl Creatinine 1.60 mg/dl Potassium Level 4.3 mmol/L Sodium Level 140 mmol/L White Blood Count 6.85 K/uL Red Blood Count 3.05 M/uL Hemoglobin 9.0 g/dL Hematocrit 28.5 % Mean Corpuscular Volume 93.4 fL Mean Corpuscular Hemoglobin 29.5 pg Mean Corpuscular Hemoglobin Concent 31.6 g/dl Platelet Count 232 K/uL Mean Platelet Volume 9.8 fL Neutrophils (%) (Auto) 77.7 % Lymphocytes (%) (Auto) 9.8 % Monocytes (%) (Auto) 9.3 % Eosinophils (%) (Auto) 2.2 % Basophils (%) (Auto) 0.4 % Neutrophils # (Auto) 5.32 K/uL Lymphocytes # (Auto) 0.67 K/uL Monocytes # (Auto) 0.64 K/uL Eosinophils # (Auto) 0.15 K/uL Basophils # (Auto) 0.03 K/uL HbA1c: Test 02/07/17 22:04 Hemoglobin A1c 8.1 % (4.5-5.6) H Recent Pertinent Medications Outpatient Anti-diabetic Regimen: * Levemir * 6 units SQ q AM * 3 units SQ q PM * A1c = 8.1 % 02/07/17 The patient is currently receiving: * Basal insulin: * Levemir 3 units every 12 hours * Bolus Insulin: * NovoLog Correction per scale AC/HS - Goal Range: Low 140 mg/dL - High 180 mg/dL - Correction Factor: 25 mg/dL/unit - Carb ratio of 1 unit per 12 grams CHO consumed Risk Factors for Insulin Resistance: * Infection: cefepime IV --> Zosyn IV --> Rocephin IV * Diet: regular Assessment & Plan ASSESSMENT: Initial: * ADA & AACE recommend a goal blood sugar range 140-180 mg/dl for the majority of critically ill & non-critically ill patients. * 81 y/o presumed type 2 diabetic who uses basal insulin as an outpatient * A1c indicates appropriate control for patient based on age/comorbidities * At home, it is noted that Ms Malagon feels hypoglycemia when BSG is ~100mg /dL * will utilize a higher, ADA recommended, goal range for this reason Currently, * BSGs elevated over the past few hours, likely to missing AM Levemir on 02/09 * resume Levemir, and give supplemental dose today with lunch to help reduce basal insufficiency * NovoLog parameters changed last evening in response to hyperglycemia * I agree that more aggressive regimen is necessary, will aim to reformulate NovoLog parameters based on patient's weight and a stress of 2-3 * continue higher goal range as to avoid the feeling of hypoglycemia for [place] PLAN FOR INPATIENT GLYCEMIC CONTROL: * Basal insulin: * Levemir 3 units SQ BID - remove hold parameters * Levemir 2 units SQ x1 dose today with lunch (since AM dose missed yesterday and pre-lunch BSG elevated >250mg/dL) * Bolus insulin: * NovoLog SQ AC/HS - CF: 30mg/dL/unit - CR: 1 unit per 10g of CHO consumed - Goal: 140-180mg/dL per ADA recommendations * A1c * current, added to discharge instructions RECOMMENDATIONS FOR DISCHARGE: * Likely, Ms Malagon can continue home regimen at discharge. * Please note that the plan above was derived based on current level of insulin resistance and hospital stress. These recommendations are appropriate for inpatient admission only. Plan of care upon discharge will need to be reassessed to avoid potential outpatient hypo/hyperglycemia. Thank you.
[2017-02-10] MEDS ORDERED: INSULIN DETEMIR FLEXPEN/FLEX TOUCH 100 UNITS/ML 3ML SC SCH (12:00)
[2017-02-10] MEDS: MAGNESIUM HYDROXIDE SUSP 30 ML UDC PO PRN (12:44)
[2017-02-11] VITALS (15 sets, daily range): BP systolic 117–184; BP diastolic 68–88; PULSE 76–116; TEMP 36.7–39.4; O2SAT 95–99
[2017-02-11] MEDS: INSULIN ASPART 100 UNITS/ML 3 ML PEN SC SCH ×6 (04:00→20:47)
[2017-02-11] MEDS: LEVOTHYROXINE 100 MCG TAB PO SCH (06:24)
[2017-02-11 06:49] LABS: BASO % 0.3 %; BASO ABS # 0.02 K/uL (0-0.2); EOS % 2.5 %; HEMATOCRIT 28.7 % (37-47); IG% 0.9 %; LYMPH % 16.6 %; LYMPH ABS # 1.07 K/uL (1.2-3.4); MEAN CELL VOLUME 92.9 fL (80-100); MEAN CORPUSCULAR HEMOGLOBIN 28.5 pg (25-34); MEAN CORPUSCULAR HGB CONC 30.7 g/dl (32-36); MONO % 14.9 %; NEUT % 64.8 %; PLATELET COUNT 273 K/uL (130-400); RED BLOOD COUNT 3.09 M/uL (4.2-5.4); WHITE BLOOD COUNT 6.43 K/uL (4.8-10.8)
[2017-02-11 07:24] LABS: BUN/CREATININE RATIO 11.7 (10-20); CALCIUM 7.4 mg/dl (8.5-10.1); CREATININE 1.5 mg/dl (0.60-1.20); MAGNESIUM 2.2 mg/dl (1.8-2.4); POTASSIUM 4.8 mmol/L (3.5-5.1)
[2017-02-11] MEDS: CYANOCOBALAMIN 500 MCG TAB (VIT B-12) PO SCH (08:18)
[2017-02-11] MEDS: PANTOprazole SOD 40 MG TAB PO SCH (08:19)
[2017-02-11] MEDS: CALCIUM 600MG + VIT D 400 IU TAB PO SCH (08:19)
[2017-02-11] MEDS: DOCUSATE SODIUM/SENNA 50/8.6MG TAB PO SCH (08:19)
[2017-02-11] MEDS: CHECK FENTANYL PATCH PLACEMENT SCH ×2 (08:21→16:38)
[2017-02-11 08:49] LABS: COMPLETE YES
[2017-02-11] MEDS: HEPARIN SOD 5000 UNIT/0.5 ML CARP SQ SCH ×2 (09:00→20:47)
[2017-02-11] MEDS: INSULIN DETEMIR FLEXPEN/FLEX TOUCH 100 UNITS/ML 3ML SC SCH ×3 (09:07→21:00)
[2017-02-11] MEDS: CEFTRIAXONE SOD INJ 1000 MG in DEXTROSE 5% 50ML IV SCH (09:07)
[2017-02-11] MEDS: FENTANYL 75 MCG/HR TDSY TD SCH (10:29)
[2017-02-11] MEDS: FENTANYL PATCH REMOVE & WASTE SCH (10:34)
[2017-02-11] MEDS: HYDROCODONE/ACETAMINOPHEN 7.5/325MG TAB PO PRN (10:36)
--- NOTE | 2017-02-11 12:24 | Pharmacy Progress Note ---
Glycemic Control: Progress Nt Date of Service February 11, 2017. Scope Glycemic Pharmacist consulted by Dr Sabillon on 02/08/17 for glycemic control and to write orders per [facility] inpatient glycemic control protocol. Objective Accuchecks BSG (last 24hrs): Test 02/10/17 16:41 02/10/17 20:09 02/11/17 00:00 02/11/17 04:21 Bedside Glucose 259 mg/dl (70-90) 170 mg/dl (70-90) 142 mg/dl (70-90) 128 mg/dl (70-90) Test 02/11/17 06:20 02/11/17 07:44 02/11/17 11:22 Random Glucose 128 mg/dl (70-99) Bedside Glucose 154 mg/dl (70-90) 174 mg/dl (70-90) Laboratory Data (last 24hrs) Test 02/11/17 06:20 Anion Gap 5.0 mmol/L BUN/Creatinine Ratio 11.7 Blood Urea Nitrogen 18 mg/dl Creatinine 1.50 mg/dl Potassium Level 4.8 mmol/L Sodium Level 141 mmol/L White Blood Count 6.43 K/uL Red Blood Count 3.09 M/uL Hemoglobin 8.8 g/dL Hematocrit 28.7 % Mean Corpuscular Volume 92.9 fL Mean Corpuscular Hemoglobin 28.5 pg Mean Corpuscular Hemoglobin Concent 30.7 g/dl Platelet Count 273 K/uL Mean Platelet Volume 10.0 fL Neutrophils (%) (Auto) 64.8 % Lymphocytes (%) (Auto) 16.6 % Monocytes (%) (Auto) 14.9 % Eosinophils (%) (Auto) 2.5 % Basophils (%) (Auto) 0.3 % Neutrophils # (Auto) 4.16 K/uL Lymphocytes # (Auto) 1.07 K/uL Monocytes # (Auto) 0.96 K/uL Eosinophils # (Auto) 0.16 K/uL Basophils # (Auto) 0.02 K/uL HbA1c: Test 02/07/17 22:04 Hemoglobin A1c 8.1 % (4.5-5.6) H Recent Pertinent Medications Outpatient Anti-diabetic Regimen: * Levemir * 6 units SQ q AM * 3 units SQ q PM * A1c = 8.1 % 02/07/17 The patient is currently receiving: * Basal insulin: * Levemir 3 units every 12 hours (given additional 2 units 02/10 am) * Bolus Insulin: * NovoLog Correction per scale AC/HS - Goal Range: Low 140 mg/dL - High 180 mg/dL - Correction Factor: 30 mg/dL/unit - Carb ratio of 1 unit per 10 grams CHO consumed Risk Factors for Insulin Resistance: * Infection: cefepime IV --> Zosyn IV --> Rocephin IV * Diet: regular Assessment & Plan ASSESSMENT: * ADA & AACE recommend a goal blood sugar range 140-180 mg/dl for the majority of critically ill & non-critically ill patients. * 81 y/o presumed type 2 diabetic who uses basal insulin as an outpatient * A1c indicates appropriate control for patient based on age/comorbidities * At home, it is noted that Ms Malagon feels hypoglycemia when BSG is ~100mg /dL * will utilize a higher, ADA recommended, goal range for this reason 02/11/17 * Patient receiving a total of 30 units of insulin yesterday with BSGs ranging from 142 - 259 mg/dL. * Fasting BSG improved and at goal after receiving 8 units of Lantus yesterday. Will resume home dose of Lantus at this time (total of 9 units daily). * Continue current NovoLog parameters PLAN FOR INPATIENT GLYCEMIC CONTROL: * Basal insulin: * Levemir 6 units SQ aAM * Levemir 3 units SQ qPM * Bolus insulin: * NovoLog SQ AC/HS - CF: 30mg/dL/unit - CR: 1 unit per 10g of CHO consumed - Goal: 140-180mg/dL per ADA recommendations * A1c * current, added to discharge instructions RECOMMENDATIONS FOR DISCHARGE: * Ms Malagon can continue home regimen at discharge. * Please note that the plan above was derived based on current level of insulin resistance and hospital stress. These recommendations are appropriate for inpatient admission only. Plan of care upon discharge will need to be reassessed to avoid potential outpatient hypo/hyperglycemia. Thank you.
--- NOTE | 2017-02-11 14:51 | Progress Note ---
Medicine Progress Note Date & Time of Visit: February 11, 2017 at 14:34. Subjective patient seen with daughter Naz at bedside comfortable smiling states she feels good today no abdominal pain, nausea, tolerating diet well had 2 loose stools today, but no above symptoms denies chest pain, shortness of breath has some right calf pain but no problems ambulating states she is ready and would like to be discharged today Objective Last 8 Hrs Date Time Temp Pulse Resp B/P Pulse Ox O2 Delivery O2 Flow Rate FiO2 02/11/17 11:10 36.9 76 18 120/68 97 Room Air 02/11/17 08:45 95 Room Air 2.0 02/11/17 07:35 36.7 76 18 127/70 95 Room Air Physical Exam: General- oriented x 3, not in distress, speaks in sentences with no effort Eyes anicteric Neck- no JVD Lungs- clear breath sounds bilaterally, no rales/wheezing Heart- normal rate, regular rhythm; no murmurs Abdomen- normal bowel sounds, non distended, soft, NO tenderness Extremities- no pretibial edema or erythema, mild R calf tenderness Neuro- alert, oriented x 3; no gross focal deficits Skin- warm & dry Laboratory Results: Last 24 Hours Test 02/10/17 16:41 02/10/17 20:09 02/11/17 00:00 02/11/17 04:21 Bedside Glucose 259 mg/dl 170 mg/dl 142 mg/dl 128 mg/dl Test 02/11/17 06:20 02/11/17 07:44 02/11/17 11:22 White Blood Count 6.43 K/uL Red Blood Count 3.09 M/uL Hemoglobin 8.8 g/dL Hematocrit 28.7 % Mean Corpuscular Volume 92.9 fL Mean Corpuscular Hemoglobin 28.5 pg Mean Corpuscular Hemoglobin Concent 30.7 g/dl Platelet Count 273 K/uL Mean Platelet Volume 10.0 fL Neutrophils (%) (Auto) 64.8 % Lymphocytes (%) (Auto) 16.6 % Monocytes (%) (Auto) 14.9 % Eosinophils (%) (Auto) 2.5 % Basophils (%) (Auto) 0.3 % Neutrophils # (Auto) 4.16 K/uL Lymphocytes # (Auto) 1.07 K/uL Monocytes # (Auto) 0.96 K/uL Eosinophils # (Auto) 0.16 K/uL Basophils # (Auto) 0.02 K/uL RDW Standard Deviation 53.6 fL RDW Coefficient of Variation 15.7 % Immature Granulocyte % (Auto) 0.9 % Immature Granulocyte # (Auto) 0.06 K/uL Red Blood Cell Morphology Unremarkable Sodium Level 141 mmol/L Potassium Level 4.8 mmol/L Chloride Level 110 mmol/L Carbon Dioxide Level 26 mmol/L Anion Gap 5.0 mmol/L Blood Urea Nitrogen 18 mg/dl Creatinine 1.50 mg/dl Est Creatinine Clear Calc Drug Dose 24.1 ml/min Estimated GFR () 37.5 Estimated GFR (Non- 32.3 BUN/Creatinine Ratio 11.7 Random Glucose 128 mg/dl Calcium Level 7.4 mg/dl Magnesium Level 2.2 mg/dl Bedside Glucose 154 mg/dl 174 mg/dl Assessment & Plan ASSESSMENT AND PLAN: This is an 81-year-old female with 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 pain seems to be controlled adequately overall increased Fentanyl patch to 75 mcg, given low dose Toradol pain adequately controlled crea stable at 1.5-1.6, monitor discharge on Fentanyl patch 75mcg daily titrate patch as outpatient - from Constipation? Senokot S ordered, Milk of Mg KUB: no obstruction resolved - possible Biliary colic GB US: no cholecysitis, (+) GB filled with stone LFTs ok Surgery consulted Dr. Parks, pain unlikely from biliary colic CKD 3 - baseline crea 1.2-1.3 - remains at 1.5-1.6 monitor as outpatient History of hypertension - held lasix, lisinopril as patient's BP was marginal - at one point, had a BP surge associated with pain episode - so far, BP controlled while off Lisinopril, Lasix - continue to monitor as outpatient Right Calf Pain - no swelling, warmth, erythema - as per daughter , anticoagulation contraindicated with patient due to elevated INR also has IVC filter - will observe for now History of diabetes. - continue home Insulin dose History of hypothyroidism, continue Synthroid. History of chronic diastolic congestive heart failure with a grade 1 diastolic dysfunction - on Lasix as needed. 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 Conner hold chemo for now - ff up with Dr. Conner as scheduled Left Humeral Fracture - chronic - follows with Ortho Gastroesophageal reflux disease, continue Protonix. Deep vein thrombosis prophylaxis, SCDs and heparin ordered but patient declined Disposition: d/c home ff up with PCP in 1 week ff up with Dr. Conner as scheduled Current Inpatient Medications: Current Inpatient Medications Medications (Trade) Dose Ordered Sig/Suleiman Route Start Time Stop Time Status Last Admin Dose Admin Ioversol (Optiray 320) 100 ml UD PRN IV 02/07/17 22:15 02/11/17 22:14 Acetaminophen (Tylenol Tab) 650 mg Q4H PRN PO 02/08/17 00:45 03/10/17 00:44 Al Hydrox/Mg Hydrox/Simethicone (Maalox Max Susp) 15 ml Q4H PRN PO 02/08/17 00:45 03/10/17 00:44 Magnesium Hydroxide (Milk Of Magnesia Susp) 30 ml Q6H PRN PO 02/08/17 00:45 03/10/17 00:44 02/10/17 12:44 30 ML Polyethylene (Miralax Powder Packet) 17 gm DAILY PRN PO 02/08/17 02:30 03/10/17 02:29 Ondansetron HCl (Zofran Inj) 4 mg Q6H PRN IV 02/08/17 00:45 03/10/17 00:44 02/09/17 14:13 4 MG Heparin Sodium (Porcine) (Heparin Sq 5000 Unit/0.5ml) 5,000 unit Q12H SQ 02/08/17 09:00 03/10/17 08:59 Calcium/Vitamin D (Caltrate Plus Tab) 1 tab DAILY PO 02/08/17 08:00 03/10/17 08:59 02/11/17 08:19 1 TAB Cyanocobalamin (Vitamin B-12 Tab) 1,000 mcg DAILY PO 02/08/17 08:00 03/10/17 08:59 02/11/17 08:18 1,000 MCG Acetaminophen/ Hydrocodone Bitart ([place] 7.5/325 Tab) 2 TAB FOR SEVERE PAIN Q4 PRN PO 02/08/17 00:45 02/22/17 00:44 02/11/17 10:36 1 TAB Levothyroxine Sodium (Synthroid Tab) 100 mcg DAILYBB PO 02/08/17 06:30 03/10/17 06:29 02/11/17 06:24 100 MCG Pantoprazole Sodium (Protonix Tab) 40 mg DAILY PO 02/08/17 08:00 03/10/17 08:59 02/11/17 08:19 40 MG Insulin Aspart (novoLOG ASPART) SLIDING SCALE G... ACHS SC 02/08/17 06:30 03/10/17 06:29 02/11/17 12:46 3 UNITS Miscellaneous (Fentanyl Patch Remove & Waste) 1 ea Q3D@0859 N/A 02/09/17 08:59 03/11/17 08:58 02/11/17 10:34 1 EA Miscellaneous Information (Check Fentanyl Patch Placement) 1 ea QS N/A 02/08/17 03:00 03/10/17 02:59 02/11/17 08:21 1 EA Glucose (Glucose 40% Gel) 15-30 GRAMS 15 GRAMS... UD PRN PO 02/08/17 03:00 03/10/17 02:59 Glucose (Glucose Chew Tab) 4-8 Tablets 4 Tabl... UD PRN PO 02/08/17 03:00 03/10/17 02:59 Dextrose (Dextrose 50% 50ML Syringe) 25-50ML OF 50% DW IV FOR... UD PRN IV 02/08/17 03:00 03/10/17 02:59 Glucagon (Glucagon Inj) 1 mg UD PRN SQ 02/08/17 03:00 03/10/17 02:59 Miscellaneous Information (Consult Glycemic Management Pharmacy) 1 ea UD PRN N/A 02/08/17 13:12 03/10/17 13:11 Fentanyl (Duragesic Patch) 75 mcg Q3D@0900 TD 02/08/17 14:00 02/22/17 13:59 02/11/17 10:29 75 MCG Senna (Senokot Tab) 8.6 mg DAILY PRN PO 02/08/17 17:00 03/10/17 16:59 Senna/Docusate Sodium (Senokot S Tab) 1 tab QAM PO 02/09/17 08:00 03/11/17 07:59 02/11/17 08:19 1 TAB Ketorolac Tromethamine (Toradol Inj) 15 mg Q12H PRN IV 02/09/17 08:15 02/14/17 08:14 02/09/17 14:19 15 MG Miscellaneous (Soap Suds Enema) 1 ea DAILY PRN NM 02/09/17 22:45 03/11/17 22:44 Miscellaneous Information 1 ea 1 ea UD PRN N/A 02/10/17 08:39 03/12/17 08:38 Ceftriaxone Sodium/Dextrose (Rocephin Inj/ Dextrose Add-[place] 50ML) 50 ml @ 100 mls/hr Q24H IV 02/10/17 09:00 02/20/17 08:59 02/11/17 09:07 100 MLS/HR Insulin Detemir (Levemir Flexpen/ FlexTouch) 6 unit QAM SC 02/11/17 08:00 03/13/17 07:59 02/11/17 09:07 6 UNIT Insulin Detemir (Levemir Flexpen/ FlexTouch) 3 unit HS SC 02/11/17 21:00 03/13/17 20:59
[2017-02-11] MEDS ORDERED: CEFU1TAB33 PO (14:57)
[2017-02-11] MEDS ORDERED: MRLP17X PO (14:57)
[2017-02-11] MEDS ORDERED: DRGTP75 TD (14:57)
--- NOTE | 2017-02-11 15:08 | Discharge Instructions ---
Discharge Instructions Date of Service February 11, 2017. Admission Reason for Admission: Fever, Uti Discharge Discharge Diagnosis / Problem: ABDOMINAL PAIN Discharge Goals Goal(s): Diagnostic testing, Therapeutic intervention Activity Recommendations Activity Limitations: as noted below (RESUME USUAL ACTIVITIES GRADUALLY) Instructions / Follow-Up Instructions / Follow-Up PLEASE REVIEW YOUR NEW MEDICATION LIST AND FOLLOW INSTRUCTIONS CAREFULLY. CALL PRIMARY CARE PHYSICIAN OR RETURN TO ER IMMEDIATELY IF WITH RECURRENCE OF SYMPTOMS, INCREASING PAIN, FEVER/CHILLS, DIARRHEA, NAUSEA/VOMITING, CHANGES WITH URINATION. FOLLOW UP WITH PRIMARY CARE PHYSICIAN IN 1 [address]EEK. FOLLOW UP WITH DR. LEZAMA AND DR. MCCALL SCHEDULED. . Current Hospital Diet Patient's current hospital diet: Regular Diet Discharge Diet Recommended Diet: AHA Diet (Heart Healthy), Diabetes Type 2 Diet Pending Studies Studies pending at discharge: yes List of pending studies: REPEAT CBD AND PRP C/O PRIMARY CARE PHYSICIAN Laboratory Results Hemoglobin A1c Test 02/07/17 22:04 Range/Units Estimated Average Glucose 186 mg/dl Hemoglobin A1c 8.1 H 4.5-5.6 % Medical Emergencies . Who to Call and When: Medical Emergencies: If at any time you feel your situation is an emergency, please call 911 immediately. . Non-Emergent Contact Non-Emergency issues call your: Primary Care Provider Call Non-Emergent contact if: you have a fever, your pain is not controlled, your pain is worsening, you have any medication questions . . "Provider Documentation" section prepared by Jesu Sabillon. . VTE Core Measure Inpt VTE Proph given/why not?: Unfractionated heparin SQ, SCD's [place] Drug Monitoring Program Search Results: patient reviewed within database, no issues identified
--- NOTE | 2017-02-11 15:17 | Discharge Summary ---
Discharge Summary Date of Service February 11, 2017. Discharge Summary Admission Date: February 08, 2017 at 00:50 Discharge Date: February 11, 2017 Discharge Disposition: Home Principal Diagnosis: Abdominal pain and fever, likely Multifactorial - UTI, E coli - referred pain from R Iliac bone lesion - from Constipation Secondary Diagnoses/Problems: Please refer to hospital course below. Procedures: CT OF THE ABDOMEN AND PELVIS WITH CONTRAST CLINICAL HISTORY: Abdominal pain and fever. Metastatic renal cell carcinoma. COMPARISON STUDY: CT of the abdomen and pelvis December 04, 2016. TECHNIQUE: Following IV administration of 70 mL of Optiray-320, axial images of the abdomen and pelvis were obtained from the lung bases to the proximal femurs. Images were reviewed in the axial, sagittal, and coronal planes. IV contrast was administered without complication. CT DOSE: 448.10 mGy.cm FINDINGS: A 2 cm left lower lobe lesion has increased in size since CT of December 04, 2016 when it measured 1.5 cm. There is no pneumatosis, free air or portal venous gas. A common bile duct stent is in place. Pneumobilia is again noted. Moderate biliary ductal dilatation has slightly increased since exam of December 04, 2016. There are gallstones within the gallbladder. Innumerable liver metastases are similar to prior exam. An index lateral segment lesion measures 5 cm. An IVC filter is in place. There is no evidence for a bowel obstruction. There is no pneumatosis, free air or portal venous gas. Multiple pancreatic lesions are similar to prior exam. The left kidney is surgically absent. The right kidney is unremarkable. A expansile destructive lesion involving the right iliac bone and right sacrum is unchanged with associated pathologic fracture. Expansile mass involving the left lower anterior chest wall is again noted. This is similar to prior exam. There may be associated pathologic fracture. IMPRESSION: 1. Slight increase in size of a 2 cm left lower lobe metastasis. 2. No change in innumerable liver metastases and pancreatic masses since CT of December 04, 2016. 3. Common bile duct stent in place with pneumobilia. Mild increase in biliary ductal dilatation since exam of December 04, 2016. 4. Cholelithiasis. 5. No bowel obstruction. 6. No significant change in multiple skeletal metastases with associated pathologic fractures, as described above. LEFT SHOULDER MIN 2 VIEWS ROUTINE CLINICAL HISTORY: Fx left proximal humerus fx trauma COMPARISON: None DISCUSSION: Slightly impacted fracture left humeral neck. No evidence of dislocation. Degenerative change acromioclavicular joint. There is no evidence for soft tissue swelling. Expansile lesion involving the left second and possibly third rib with potential of pleural component. This is been described previously. IMPRESSION: Fracture left humeral neck. Metastatic disease upper chest which is been described previously. Degenerative change left acromioclavicular joint. ABDOMINAL ULTRASOUND, RIGHT UPPER QUADRANT HISTORY: Fever. Right upper Quadrant abdominal pain. R/O CHOLECYSTITIS. COMPARISON: Abdominal ultrasound 05/31/2015. Abdomen and pelvis CT 02/07/2017. FINDINGS: Pancreas: Obscured by overlying bowel gas. Liver: Mildly enlarged measuring 20 cm in length. Multiple hepatic masses measuring up to 3.5 cm. There is suggestion of pneumobilia. Gallbladder: Multiple stones completely filling the gallbladder resulting in diffuse shadowing and suboptimal evaluation. Gallbladder wall is is normal in thickness measuring up to 2.5 mm. No pericholecystic fluid. CBD: A common bile duct stent is visualized. Right kidney: No hydronephrosis. IMPRESSION: 1. Multiple hepatic masses again noted consistent with metastatic disease. 2. A common bile duct stent is identified. No intrahepatic bile duct dilatation. 3. The gallbladder is completely filled with stones. No definite gallbladder wall thickening. KUB HISTORY: Fever. Ileus. r/o obstruction, ileus COMPARISON: KUB 01/16/2012. Abdomen and pelvis CT 02/07/2017. FINDINGS: Gas-filled nondistended colon. There are few gas-filled nondistended loops of small bowel. No evidence for bowel obstruction. There is a metallic common bile duct stent and an IVC filter which are unchanged in position. Surgical clips within the left side the abdomen. Pathologic fracture within the right iliac bone is again noted. No renal calculi. No ureteral calculi. No pneumoperitoneum or pneumatosis. IMPRESSION: Multiple gas-filled loops of large and small bowel which are not significantly distended. No evidence for bowel obstruction. Consultations: General Surgery Dr. Parks Pending Studies/Follow-Up: Lisinopril held as patient's crea slightly elevated and BP under control; Please repeat CBC and PRP (please refer to hospital course below for further details.) Medication Reconciliation New Medications: Cefuroxime Axetil (Cefuroxime Axetil) 250 Mg Tab 1 TAB PO DAILY for 3 Days, #3 TABS 0 Refills Fentanyl (Duragesic) 75 Mcg Tdsy 75 MCG TD Q3D@0900 for 15 Days, #5 PATCH 0 Refills Polyethylene (Miralax) 17 Gm Pow 17 GM PO DAILY PRN for Constipation for 30 Days, #15 PKT 2 Refills Continued Medications: Calcium/Vitamin D (Caltrate 600 Plus *) Tab 1 TAB PO DAILY, 0 Refills CHEWS Cyanocobalamin (Vitamin B12 500MCG) 500 Mcg Tab 1000 MCG PO DAILY, TAB Denosumab (Xgeva) 120 Mg/1.7 Ml Inj 1 DOSE SC MONTHLY Furosemide (Lasix) 20 Mg Tab 20 MG PO DAILY PRN for EDEMA, #10 TAB Hydrocodone/Acetaminophen 7.5MG/325MG ([place] 7.5MG/325MG) Tab 1-2 TAB PO Q4 PRN for Pain, TAB PRN PAIN Insulin Detemir (Levemir Flextouch) 100 Unit/Ml Inj 6 UNITS SQ QAM Insulin Detemir (Levemir Flextouch) 100 Unit/Ml Inj 3 UNITS SQ QPM Levothyroxine Sodium (Synthroid) 100 Mcg Tab 100 MCG PO DAILY, TAB Ondansetron Tab (Zofran) 8 Mg Tab 8 MG PO Q8 PRN for Nausea, TAB Pantoprazole (Protonix) 40 Mg Tab 40 MG PO DAILY, #30 TAB Senna (Senokot) 8.6 Mg Tab 1 TAB PO DAILY PRN for Constipation, 0 Refills [Opdiva] () 1 DOSE IV. [id number] Discontinued Medications: Fentanyl (Duragesic *) 50 Mcg Tdsy 50 MCG TD [id number], 0 Refills Lisinopril (Lisinopril) 10 Mg Tab 20 MG PO DAILY, #60 Admission Information HPI (per Admitting provider): DATE OF ADMISSION: 02/08/2017 CHIEF COMPLAINT: Abdominal pain and fever. HISTORY OF PRESENT ILLNESS: This 81-year-old female with past medical history significant for metastatic renal cancer with liver metastasis and bone metastasis, hypothyroidism, hypertension and GERD, presents with right-sided abdominal pain, severe in nature, and she says the pain is more when she stands up and also was running temperature at home. So she was brought in here, she has a temp spike of 39.4 in the ER, pain is better controlled with pain medication now. Denies any headaches, no blurred vision, no dizziness, no cough, no nausea, no vomiting, no diarrhea, no hematuria, no burning micturition. Appetite is not that great. Lives with her family. Ambulation not that great. Currently resting comfortably and hemodynamically stable. Physical Exam (per Admitting): GENERAL: The patient is old and frail, not in distress. VITAL SIGNS: T-max 39.4, pulse 83, respiratory rate 14, blood pressure 129/62, oxygen 97% on room air. HEENT: No pallor, no icterus. Pupils equal, round, and reactive to light. NECK: No JVD, no neck masses, no carotid bruits. CARDIOVASCULAR: S1, S2 heard, regular rate and rhythm, no murmur, no gallop. RESPIRATORY: Normal AP diameter. No accessory muscle use. No wheezing, no crackles. ABDOMEN: Soft, bowel sounds present. Mild right lower quadrant tenderness. No guarding, no rigidity, no distention. CENTRAL NERVOUS SYSTEM: Cranial nerves II-XII grossly intact. Nonfocal. EXTREMITIES: Lower extremity edema present. No gross erythema seen. Hospital Course ASSESSMENT AND PLAN: This is an 81-year-old female with history of Lung CA with Mets to Bone and Liver, DM , HTN, CKD 3, CHF Diastolic type, who presents with abdominal pain Abdominal pain and fever, likely Multifactorial - referred pain from R Iliac bone lesion - UTI, E coli - from Constipation - referred pain from R Iliac bone lesion? pain seems to be controlled adequately overall increased Fentanyl patch to 75 mcg, given low dose Toradol pain adequately controlled crea stable at 1.5-1.6, monitor discharge on Fentanyl patch 75mcg daily titrate patch as outpatient - UTI, E coli urine culture E coli pansensitive blood cultures negative was on Zosyn then changed to Cefepime then Ceftriaxone received total of 4 days of antibiotics will d/c on Cefuroxime 250mg po daily x 3 more days to complete 7 days - from Constipation Senokot S ordered, Milk of Mg KUB: no obstruction resolved - possible Biliary colic GB US: no cholecysitis, (+) GB filled with stone LFTs ok Surgery consulted Dr. Parks, pain unlikely from biliary colic CKD 3 - baseline crea 1.2-1.3 - remains at 1.5-1.6 monitor as outpatient History of hypertension - held lasix, lisinopril as patient's BP was marginal - at one point, had a BP surge associated with pain episode - so far, BP controlled while off Lisinopril, Lasix - continue to monitor as outpatient Right Calf Pain - no swelling, warmth, erythema - as per daughter , anticoagulation contraindicated with patient due to elevated INR also has IVC filter - will observe for now History of diabetes. - continue home Insulin dose History of hypothyroidism, continue Synthroid. History of chronic diastolic congestive heart failure with a grade 1 diastolic dysfunction - on Lasix as needed. 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 Lezama hold chemo for now - ff up with Dr. Lezmaa as scheduled Left Humeral Fracture - chronic - follows with Ortho Gastroesophageal reflux disease, continue Protonix. Deep vein thrombosis prophylaxis, SCDs and heparin ordered but patient declined Disposition: d/c home ff up with PCP in 1 week ff up with Dr. Lezama as scheduled Total time spent on discharge = 45 minutes This includes examination of the patient, discharge planning, medication reconciliation, and communication with other providers. Discharge Instructions Discharge Instructions Date of Service February 11, 2017. Admission Reason for Admission: Fever, Uti Discharge Discharge Diagnosis / Problem: ABDOMINAL PAIN Discharge Goals Goal(s): Diagnostic testing, Therapeutic intervention Activity Recommendations Activity Limitations: as noted below (RESUME USUAL ACTIVITIES GRADUALLY) Instructions / Follow-Up Instructions / Follow-Up PLEASE REVIEW YOUR NEW MEDICATION LIST AND FOLLOW INSTRUCTIONS CAREFULLY. CALL PRIMARY CARE PHYSICIAN OR RETURN TO ER IMMEDIATELY IF WITH RECURRENCE OF SYMPTOMS, INCREASING PAIN, FEVER/CHILLS, DIARRHEA, NAUSEA/VOMITING, CHANGES WITH URINATION. FOLLOW UP WITH PRIMARY CARE PHYSICIAN IN 1 [address]EEK. FOLLOW UP WITH DR. LEZAMA AND DR. MCCALL SCHEDULED. . Current Hospital Diet Patient's current hospital diet: Regular Diet Discharge Diet Recommended Diet: AHA Diet (Heart Healthy), Diabetes Type 2 Diet Pending Studies Studies pending at discharge: yes List of pending studies: REPEAT CBD AND PRP C/O PRIMARY CARE PHYSICIAN Laboratory Results Hemoglobin A1c Test 02/07/17 22:04 Range/Units Estimated Average Glucose 186 mg/dl Hemoglobin A1c 8.1 H 4.5-5.6 % Medical Emergencies . Who to Call and When: Medical Emergencies: If at any time you feel your situation is an emergency, please call 911 immediately. . Non-Emergent Contact Non-Emergency issues call your: Primary Care Provider Call Non-Emergent contact if: you have a fever, your pain is not controlled, your pain is worsening, you have any medication questions . . "Provider Documentation" section prepared by Jesu Sabillon. . VTE Core Measure Inpt VTE Proph given/why not?: Unfractionated heparin SQ, SCD's [place] Drug Monitoring Program Search Results: patient reviewed within database, no issues identified
[2017-02-11] MEDS: ACETAMINOPHEN 325 MG TAB PO PRN ×2 (16:38→20:44)
[2017-02-11] MEDS ORDERED: PIPERACILL/TAZOBAC CONSULT ACTIVE PRN (18:55)
[2017-02-11] MEDS ORDERED: PIPERACILL/TAZOBAC IV 3.375 GM in DEXTROSE 5% 100ML IV ONE (19:30)
--- NOTE | 2017-02-11 19:49 | DIAGNOSTIC IMAGING REPORT ---
SINGLE VIEW CHEST CLINICAL HISTORY: Dyspnea. FINDINGS: An AP, portable, upright chest radiograph is compared to study dated 02/09/2017. Correlation is made with chest CT dated 12/04/2016. The examination is degraded by portal technique and patient rotation. The heart is enlarged and there is atherosclerotic calcification of the thoracic aorta. There is pulmonary vascular congestion and mild interstitial edema. There are small pleural effusions and bibasilar consolidation. A destructive lesion identified in the left upper ribs with associated pleural based mass is unchanged. There is scarring identified in the left upper lobe. The right upper lung appears clear. No pneumothorax is seen. The skeletal structures are osteopenic. Chronic posttraumatic changes seen in the left proximal humerus. Surgical clips are seen in the upper abdomen. IMPRESSION: 1. Cardiomegaly with evidence of congestive failure and interstitial edema. This is unchanged to minimally worsened from 02/09/2017. 2. Small pleural effusions and bibasilar consolidation. 3. A left apical pleural lesion with underlying bony destruction is similar to previous. Electronically signed by: Shadi Echols M.D. 02/11/2017 7:48 PM Dictated Date/Time: 02/11/2017 7:46 PM
[2017-02-11] MEDS ORDERED: VANCOMYCIN INJ 1,000 MG in SODIUM CHLORIDE 0.9% 250ML 250 ML IV SCH (21:30)
[2017-02-11] MEDS: ACETAMINOPHEN IV 650 MG in EMPTY BAG 0 ML IV PRN (21:37)
--- NOTE | 2017-02-11 21:41 | Progress Note ---
Progress Note Date of Service February 11, 2017. Progress Note attending addendum was doing very well in the morning in the afternoon , as patient was going to be discharged, notified by RN as patient was having chills and fever given Tylenol on exam, patient appears somewhat weak but awake, oriented denies headache, cough, sputum, abdominal pain last loose BMs in the morning no urinary symptoms clear breath sounds bilaterally, no rales abdomen non distended soft, very mild tenderness on the RLQ, no Kelly's sign no leg edema will repeat blood and urine cultures, check procalcitonin, CXR changed Ceftri to Zosyn will consult ID fever from underlying Metastatic CA? hold d/c for now Jesu Sabillon MD
[2017-02-11] MEDS ORDERED: AZITHROMYCIN IV 500 MG in DEXTROSE 5% 250ML 250 ML IV SCH (22:00)
[2017-02-11] MEDS ORDERED: VANCOMYCIN CONSULT ACTIVE PRN (22:15)
[2017-02-11] MEDS ORDERED: VANCOMYCIN INJ 1,450 MG in SODIUM CHLORIDE 0.9% 500ML 500 ML IV SCH (22:30)
[2017-02-11] MEDS: PIPERACILL/TAZOBAC IV 3.375 GM in DEXTROSE 5% 100ML IV SCH (23:57)
[2017-02-12] VITALS (15 sets, daily range): BP systolic 97–128; BP diastolic 49–66; PULSE 64–92; TEMP 36.2–39; O2SAT 92–99; BMI 30.7
[2017-02-12] MEDS: CHECK FENTANYL PATCH PLACEMENT SCH ×3 (00:39→16:00)
[2017-02-12] MEDS: LEVOTHYROXINE 100 MCG TAB PO SCH (06:17)
--- NOTE | 2017-02-12 07:08 | Clinical Documentation Query ---
CLINICAL DOCUMENTATION QUERY 81 year old female who presents to the Emergency Room with complaints of fever, chills, & lower abdominal pain. Initial impression by the ED was sepsis. In your clinical opinion is this patient being managed for: ( ) Sepsis evidenced by refractory fever, leukocytosis, and tachycardia POA in setting of UTI ( ) Other explanation of clinical findings (Please Explain) ( ) Unable to determine (Please Define) ( ) Need to Discuss ( ) Not Agree This should go to Dr Sabillon The medical record reflects the following clinical findings, treatment, and risk factors. Clinical Indicators: Fever (39.4), tachycardia (110), Leukocytosis 12.74 with Neut% 92.5, and UC +E.Coli. Treatment: IVF boluses, IV Zosyn, IV Vancomycin, IV Cefepime, IV Azithromycin, Risk Factors: Age, immunosuppression due to chemotherapy, and underlying UTI. Please clarify and document your clinical opinion in the progress notes and discharge summary. Terms such as "probable", "suspected", "likely", "questionable", "possible", or "still to be ruled out" are acceptable. IF IN AGREEMENT, YOU MUST DOCUMENT ABOVE DIAGNOSTIC STATEMENT IN DAILY PROGRESS NOTES AND DISCHARGE SUMMARY. This document is not part of the patient's record. Thank You, Eloy Abraham RN [phone]
[2017-02-12] MEDS: CALCIUM 600MG + VIT D 400 IU TAB PO SCH ×2 (08:00→08:09)
[2017-02-12] MEDS: DOCUSATE SODIUM/SENNA 50/8.6MG TAB PO SCH ×2 (08:00→08:10)
[2017-02-12] MEDS: PANTOprazole SOD 40 MG TAB PO SCH (08:09)
[2017-02-12] MEDS: CYANOCOBALAMIN 500 MCG TAB (VIT B-12) PO SCH (08:10)
[2017-02-12] MEDS: PIPERACILL/TAZOBAC IV 3.375 GM in DEXTROSE 5% 100ML IV SCH (08:13)
[2017-02-12] MEDS: ONDANSETRON INJ 2 MG/ML 2 ML VIAL IV PRN ×2 (08:23→23:12)
[2017-02-12 08:33] LABS: BASO % 0.2 %; BASO ABS # 0.03 K/uL (0-0.2); COMPLETE YES; EOS % 0.2 %; HEMATOCRIT 28.9 % (37-47); IG% 0.3 %; LYMPH % 4.9 %; LYMPH ABS # 0.62 K/uL (1.2-3.4); MEAN CELL VOLUME 93.2 fL (80-100); MEAN CORPUSCULAR HEMOGLOBIN 29.4 pg (25-34); MEAN CORPUSCULAR HGB CONC 31.5 g/dl (32-36); MEAN PLATELET VOLUME 10.3 fL (7.4-10.4); MONO % 7.7 %; NEUT % 86.7 %; PLATELET COUNT 234 K/uL (130-400); WHITE BLOOD COUNT 12.72 K/uL (4.8-10.8)
[2017-02-12 09:00] LABS: BUN/CREATININE RATIO 10.5 (10-20); CALCIUM 7.4 mg/dl (8.5-10.1); CREATININE 1.4 mg/dl (0.60-1.20); POTASSIUM 5.3 mmol/L (3.5-5.1)
[2017-02-12] MEDS: HEPARIN SOD 5000 UNIT/0.5 ML CARP SQ SCH ×2 (09:00→21:00)
[2017-02-12] MEDS: INSULIN ASPART 100 UNITS/ML 3 ML PEN SC SCH ×4 (09:30→21:20)
[2017-02-12] MEDS: INSULIN DETEMIR FLEXPEN/FLEX TOUCH 100 UNITS/ML 3ML SC SCH ×2 (09:33→21:21)
--- NOTE | 2017-02-12 09:35 | Progress Note ---
Medicine Progress Note Date & Time of Visit: February 12, 2017 at 09:25. Subjective was being discharged yesterday but had another fever spike cultures, procalcitonin, CXR obtained antibiotics changed from ceftriaxone IV for E coli UTI to Vanc, Jarett Ellis this AM, patient is bright, comfortable having breakfast denies headache, dizziness, cough, abdominal pain, diarrhea, problems urinating no other symptoms Objective Last 8 Hrs Date Time Temp Pulse Resp B/P Pulse Ox O2 Delivery O2 Flow Rate FiO2 02/12/17 07:34 36.6 72 16 99/57 96 Room Air 02/12/17 06:21 36.4 02/12/17 04:10 36.4 75 18 117/66 99 Physical Exam: General- oriented x 3, not in distress, speaks in sentences with no effort Eyes- anicteric Neck- no JVD Lungs- clear breath sounds no rales/wheezing bilaterally Heart- normal rate, regular rhythm; no murmurs Abdomen- normal bowel sounds, non distended, soft, NO tenderness Extremities- no pretibial edema or erythema, mild R calf tenderness Neuro- alert, oriented x 3; no gross focal deficits Skin- warm & dry Laboratory Results: Last 24 Hours Test 02/11/17 11:22 02/11/17 16:27 02/11/17 19:05 02/11/17 20:08 Bedside Glucose 174 mg/dl 167 mg/dl Procalcitonin 8.34 ng/ml Lactic Acid Level 1.1 mmol/L Test 02/11/17 20:09 02/12/17 07:48 02/12/17 07:59 Bedside Glucose 153 mg/dl 209 mg/dl White Blood Count 12.72 K/uL Red Blood Count 3.10 M/uL Hemoglobin 9.1 g/dL Hematocrit 28.9 % Mean Corpuscular Volume 93.2 fL Mean Corpuscular Hemoglobin 29.4 pg Mean Corpuscular Hemoglobin Concent 31.5 g/dl Platelet Count 234 K/uL Mean Platelet Volume 10.3 fL Neutrophils (%) (Auto) 86.7 % Lymphocytes (%) (Auto) 4.9 % Monocytes (%) (Auto) 7.7 % Eosinophils (%) (Auto) 0.2 % Basophils (%) (Auto) 0.2 % Neutrophils # (Auto) 11.02 K/uL Lymphocytes # (Auto) 0.62 K/uL Monocytes # (Auto) 0.98 K/uL Eosinophils # (Auto) 0.03 K/uL Basophils # (Auto) 0.03 K/uL RDW Standard Deviation 54.6 fL RDW Coefficient of Variation 16.0 % Immature Granulocyte % (Auto) 0.3 % Immature Granulocyte # (Auto) 0.04 K/uL Sodium Level 139 mmol/L Potassium Level 5.3 mmol/L Chloride Level 110 mmol/L Carbon Dioxide Level 23 mmol/L Anion Gap 6.0 mmol/L Blood Urea Nitrogen 15 mg/dl Creatinine 1.40 mg/dl Est Creatinine Clear Calc Drug Dose 27.8 ml/min Estimated GFR () 40.7 Estimated GFR (Non- 35.1 BUN/Creatinine Ratio 10.5 Random Glucose 215 mg/dl Calcium Level 7.4 mg/dl Date/Time Source Procedure Growth Status 02/11/17 19:10 Blood Blood Culture Pending Received 02/11/17 19:05 Blood Blood Culture Pending Received Assessment & Plan ASSESSMENT AND PLAN: This is an 81-year-old female with history 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 pain seems to be controlled adequately overall increased Fentanyl patch to 75 mcg, given low dose Toradol pain adequately controlled crea stable at 1.5-1.6, monitor discharge on Fentanyl patch 75mcg daily titrate patch as outpatient - UTI, E coli urine culture E coli pansensitive blood cultures negative was on Zosyn then changed to Cefepime then Ceftriaxone received total of 4 days of antibiotics - from Constipation Senokot S ordered, Milk of Mg KUB: no obstruction resolved - possible Biliary colic GB US: no cholecysitis, (+) GB filled with stone LFTs ok Surgery consulted Dr. Parks, pain unlikely from biliary colic CKD 3 - baseline crea 1.2-1.3 - remains at 1.5-1.6 monitor as outpatient History of hypertension - held lasix, lisinopril as patient's BP was marginal - at one point, had a BP surge associated with pain episode - so far, BP controlled while off Lisinopril, Lasix - continue to monitor as outpatient Right Calf Pain - no swelling, warmth, erythema - as per daughter , anticoagulation contraindicated with patient due to elevated INR also has IVC filter - will observe for now History of diabetes. - continue home Insulin dose History of hypothyroidism, continue Synthroid. History of chronic diastolic congestive heart failure with a grade 1 diastolic dysfunction - on Lasix as needed. 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 Conner hold chemo for now - ff up with Dr. Conner as scheduled Left Humeral Fracture - chronic - CT upper ext ordered consult Ortho Gastroesophageal reflux disease, continue Protonix. Deep vein thrombosis prophylaxis, SCDs and heparin ordered Disposition: hold discharge management and eval of recurrent fever in progress Consultants: General Surgery Dr. Parks Procedures: CT OF THE ABDOMEN AND PELVIS WITH CONTRAST CLINICAL HISTORY: Abdominal pain and fever. Metastatic renal cell carcinoma. COMPARISON STUDY: CT of the abdomen and pelvis December 04, 2016. TECHNIQUE: Following IV administration of 70 mL of [id number]-[id number], axial images of the abdomen and pelvis were obtained from the lung bases to the proximal femurs. Images were reviewed in the axial, sagittal, and coronal planes. IV contrast was administered without complication. CT DOSE: 448.10 mGy.cm FINDINGS: A 2 cm left lower lobe lesion has increased in size since CT of December 04, 2016 when it measured 1.5 cm. There is no pneumatosis, free air or portal venous gas. A common bile duct stent is in place. Pneumobilia is again noted. Moderate biliary ductal dilatation has slightly increased since exam of December 04, 2016. There are gallstones within the gallbladder. Innumerable liver metastases are similar to prior exam. An index lateral segment lesion measures 5 cm. An IVC filter is in place. There is no evidence for a bowel obstruction. There is no pneumatosis, free air or portal venous gas. Multiple pancreatic lesions are similar to prior exam. The left kidney is surgically absent. The right kidney is unremarkable. A expansile destructive lesion involving the right iliac bone and right sacrum is unchanged with associated pathologic fracture. Expansile mass involving the left lower anterior chest wall is again noted. This is similar to prior exam. There may be associated pathologic fracture. IMPRESSION: 1. Slight increase in size of a 2 cm left lower lobe metastasis. 2. No change in innumerable liver metastases and pancreatic masses since CT of December 04, 2016. 3. Common bile duct stent in place with pneumobilia. Mild increase in biliary ductal dilatation since exam of December 04, 2016. 4. Cholelithiasis. 5. No bowel obstruction. 6. No significant change in multiple skeletal metastases with associated pathologic fractures, as described above. LEFT SHOULDER MIN 2 VIEWS ROUTINE CLINICAL HISTORY: Fx left proximal humerus fx trauma COMPARISON: None DISCUSSION: Slightly impacted fracture left humeral neck. No evidence of dislocation. Degenerative change acromioclavicular joint. There is no evidence for soft tissue swelling. Expansile lesion involving the left second and possibly third rib with potential of pleural component. This is been described previously. IMPRESSION: Fracture left humeral neck. Metastatic disease upper chest which is been described previously. Degenerative change left acromioclavicular joint. ABDOMINAL ULTRASOUND, RIGHT UPPER QUADRANT HISTORY: Fever. Right upper Quadrant abdominal pain. R/O CHOLECYSTITIS. COMPARISON: Abdominal ultrasound 05/31/2015. Abdomen and pelvis CT 02/07/2017. FINDINGS: Pancreas: Obscured by overlying bowel gas. Liver: Mildly enlarged measuring 20 cm in length. Multiple hepatic masses measuring up to 3.5 cm. There is suggestion of pneumobilia. Gallbladder: Multiple stones completely filling the gallbladder resulting in diffuse shadowing and suboptimal evaluation. Gallbladder wall is is normal in thickness measuring up to 2.5 mm. No pericholecystic fluid. CBD: A common bile duct stent is visualized. Right kidney: No hydronephrosis. IMPRESSION: 1. Multiple hepatic masses again noted consistent with metastatic disease. 2. A common bile duct stent is identified. No intrahepatic bile duct dilatation. 3. The gallbladder is completely filled with stones. No definite gallbladder wall thickening. KUB HISTORY: Fever. Ileus. r/o obstruction, ileus COMPARISON: KUB 01/16/2012. Abdomen and pelvis CT 02/07/2017. FINDINGS: Gas-filled nondistended colon. There are few gas-filled nondistended loops of small bowel. No evidence for bowel obstruction. There is a metallic common bile duct stent and an IVC filter which are unchanged in position. Surgical clips within the left side the abdomen. Pathologic fracture within the right iliac bone is again noted. No renal calculi. No ureteral calculi. No pneumoperitoneum or pneumatosis. IMPRESSION: Multiple gas-filled loops of large and small bowel which are not significantly distended. No evidence for bowel obstruction. Current Inpatient Medications: Current Inpatient Medications Medications (Trade) Dose Ordered Sig/Suleiman Route Start Time Stop Time Status Last Admin Dose Admin Acetaminophen (Tylenol Tab) 650 mg Q4H PRN PO 02/08/17 00:45 03/10/17 00:44 02/11/17 16:38 650 MG Al Hydrox/Mg Hydrox/Simethicone (Maalox Max Susp) 15 ml Q4H PRN PO 02/08/17 00:45 03/10/17 00:44 Magnesium Hydroxide (Milk Of Magnesia Susp) 30 ml Q6H PRN PO 02/08/17 00:45 03/10/17 00:44 02/10/17 12:44 30 ML Polyethylene (Miralax Powder Packet) 17 gm DAILY PRN PO 02/08/17 02:30 03/10/17 02:29 Ondansetron HCl (Zofran Inj) 4 mg Q6H PRN IV 02/08/17 00:45 03/10/17 00:44 02/12/17 08:23 4 MG Heparin Sodium (Porcine) (Heparin Sq 5000 Unit/0.5ml) 5,000 unit Q12H SQ 02/08/17 09:00 03/10/17 08:59 Calcium/Vitamin D (Caltrate Plus Tab) 1 tab DAILY PO 02/08/17 08:00 03/10/17 08:59 02/11/17 08:19 1 TAB Cyanocobalamin (Vitamin B-12 Tab) 1,000 mcg DAILY PO 02/08/17 08:00 03/10/17 08:59 02/12/17 08:10 1,000 MCG Acetaminophen/ Hydrocodone Bitart ([place] 7.5/325 Tab) 2 TAB FOR SEVERE PAIN Q4 PRN PO 02/08/17 00:45 02/22/17 00:44 02/11/17 10:36 1 TAB Levothyroxine Sodium (Synthroid Tab) 100 mcg DAILYBB PO 02/08/17 06:30 03/10/17 06:29 02/12/17 06:17 100 MCG Pantoprazole Sodium (Protonix Tab) 40 mg DAILY PO 02/08/17 08:00 03/10/17 08:59 02/12/17 08:09 40 MG Insulin Aspart (novoLOG ASPART) SLIDING SCALE G... ACHS SC 02/08/17 06:30 03/10/17 06:29 02/11/17 12:46 3 UNITS Miscellaneous (Fentanyl Patch Remove & Waste) 1 ea Q3D@0859 N/A 02/09/17 08:59 03/11/17 08:58 02/11/17 10:34 1 EA Miscellaneous Information (Check Fentanyl Patch Placement) 1 ea QS N/A 02/08/17 03:00 03/10/17 02:59 02/12/17 08:07 1 EA Glucose (Glucose 40% Gel) 15-30 GRAMS 15 GRAMS... UD PRN PO 02/08/17 03:00 03/10/17 02:59 Glucose (Glucose Chew Tab) 4-8 Tablets 4 Tabl... UD PRN PO 02/08/17 03:00 03/10/17 02:59 Dextrose (Dextrose 50% 50ML Syringe) 25-50ML OF 50% DW IV FOR... UD PRN IV 02/08/17 03:00 03/10/17 02:59 Glucagon (Glucagon Inj) 1 mg UD PRN SQ 02/08/17 03:00 03/10/17 02:59 Miscellaneous Information (Consult Glycemic Management Pharmacy) 1 ea UD PRN N/A 02/08/17 13:12 03/10/17 13:11 Fentanyl (Duragesic Patch) 75 mcg Q3D@0900 TD 02/08/17 14:00 02/22/17 13:59 02/11/17 10:29 75 MCG Senna (Senokot Tab) 8.6 mg DAILY PRN PO 02/08/17 17:00 03/10/17 16:59 Ketorolac Tromethamine (Toradol Inj) 15 mg Q12H PRN IV 02/09/17 08:15 02/14/17 08:14 02/09/17 14:19 15 MG Miscellaneous (Soap Suds Enema) 1 ea DAILY PRN OR 5/13/17 22:45 03/11/17 22:44 Insulin Detemir (Levemir Flexpen/ FlexTouch) 6 unit QAM SC 02/11/17 08:00 03/13/17 07:59 02/11/17 09:07 6 UNIT Insulin Detemir (Levemir Flexpen/ FlexTouch) 3 unit HS SC 02/11/17 21:00 03/13/17 20:59 Piperacillin Sod/ Tazobactam Sod 1 ea 1 ea UD PRN N/A 02/11/17 18:55 03/13/17 18:54 Piperacillin Sod/ Tazobactam Sod 3.375 gm/Dextrose 115 ml @ 28.75 mls/ hr Q8H IV 02/12/17 00:00 02/14/17 00:00 02/12/17 08:13 28.75 MLS/HR Acetaminophen 650 mg/Empty Bag 65 ml @ 260 mls/hr Q6H PRN IV 02/11/17 21:15 03/13/17 21:14 02/11/17 21:37 260 MLS/HR Azithromycin/ Dextrose (Zithromax IV/D5 250ml) 255 ml @ 125 mls/hr Q24H IV 02/11/17 22:00 02/18/17 21:59 02/11/17 22:02 125 MLS/HR Vancomycin HCl (Consult) 1 ea UD PRN N/A 02/11/17 22:15 03/13/17 22:14 Senna/Docusate Sodium (Senokot S Tab) 1 tab DAILY PRN PO 02/13/17 08:00 03/15/17 07:59
--- NOTE | 2017-02-12 10:02 | Medical Consult ---
Consultation Date of Consultation: February 12, 2017. Attending Physician: Jesu Sabillon MD Reason for Consultation: Persistent fever History of Present Illness 81-year-old female with known metastatic renal cell carcinoma, 1st diagnosed in 1997 when she underwent left nephrectomy, with metastatic disease 1st found in 2010, status post multiple treatments with radiation and chemotherapy, with known bony and liver metastases. Has been found recently to have more extensive liver metastases, and for the last month or so has undergone new chemotherapy. She has been complaining of severe pain in the upper lateral right abdominal area. Prior to admission, she began to spike temperatures over 39 degrees associated with shaking chills, nausea, and few episodes of vomiting. No other specific associated symptoms. She has been admitted to the hospital and was treated empirically with several different broad-spectrum antibiotic regimens without apparent change in intermittent fever. All cultures have been negative except for urine culture which is growing E coli, but urinalysis and symptoms not suggestive of infection. She had another episode yesterday evening which has resolved in this morning feeling well again. She denies any cough, diarrhea, headache, or other localizing complaints. Past Medical/Surgical History Medical Problems: (1) Sepsis Status: Acute (2) UTI (urinary tract infection) Status: Acute Medical Problems: (1) Diabetes (2) DVT (deep venous thrombosis) (3) Hypertension (4) Metastatic renal cell carcinoma to bone (5) left nephrectomy Family History Patient reports no known family medical history. Social History Smoking Status: Never Smoker Drug Use: none Marital Status: Housing Status: lives with family Occupation Status: retired Allergies Coded Allergies: Adhesives (Verified Allergy, Mild, LOCAL SKIN IRRITATION, BLISTERS, ) Current Inpatient Medications Current Inpatient Medications Medications (Trade) Dose Ordered Sig/Suleiman Route Start Time Stop Time Status Last Admin Dose Admin Acetaminophen (Tylenol Tab) 650 mg Q4H PRN PO 02/08/17 00:45 03/10/17 00:44 02/11/17 16:38 650 MG Al Hydrox/Mg Hydrox/Simethicone (Maalox Max Susp) 15 ml Q4H PRN PO 02/08/17 00:45 03/10/17 00:44 Magnesium Hydroxide (Milk Of Magnesia Susp) 30 ml Q6H PRN PO 02/08/17 00:45 03/10/17 00:44 02/10/17 12:44 30 ML Polyethylene (Miralax Powder Packet) 17 gm DAILY PRN PO 02/08/17 02:30 03/10/17 02:29 Ondansetron HCl (Zofran Inj) 4 mg Q6H PRN IV 02/08/17 00:45 03/10/17 00:44 02/12/17 08:23 4 MG Heparin Sodium (Porcine) (Heparin Sq 5000 Unit/0.5ml) 5,000 unit Q12H SQ 02/08/17 09:00 03/10/17 08:59 Calcium/Vitamin D (Caltrate Plus Tab) 1 tab DAILY PO 02/08/17 08:00 03/10/17 08:59 02/11/17 08:19 1 TAB Cyanocobalamin (Vitamin B-12 Tab) 1,000 mcg DAILY PO 02/08/17 08:00 03/10/17 08:59 02/12/17 08:10 1,000 MCG Acetaminophen/ Hydrocodone Bitart (Ola 7.5/325 Tab) 2 TAB FOR SEVERE PAIN Q4 PRN PO 02/08/17 00:45 02/22/17 00:44 02/11/17 10:36 1 TAB Levothyroxine Sodium (Synthroid Tab) 100 mcg DAILYBB PO 02/08/17 06:30 03/10/17 06:29 02/12/17 06:17 100 MCG Pantoprazole Sodium (Protonix Tab) 40 mg DAILY PO 02/08/17 08:00 03/10/17 08:59 02/12/17 08:09 40 MG Insulin Aspart (novoLOG ASPART) SLIDING SCALE G... ACHS SC 02/08/17 06:30 03/10/17 06:29 02/12/17 09:30 3 UNITS Miscellaneous (Fentanyl Patch Remove & Waste) 1 ea Q3D@0859 N/A 02/09/17 08:59 03/11/17 08:58 02/11/17 10:34 1 EA Miscellaneous Information (Check Fentanyl Patch Placement) 1 ea QS N/A 02/08/17 03:00 03/10/17 02:59 02/12/17 08:07 1 EA Glucose (Glucose 40% Gel) 15-30 GRAMS 15 GRAMS... UD PRN PO 02/08/17 03:00 03/10/17 02:59 Glucose (Glucose Chew Tab) 4-8 Tablets 4 Tabl... UD PRN PO 02/08/17 03:00 03/10/17 02:59 Dextrose (Dextrose 50% 50ML Syringe) 25-50ML OF 50% DW IV FOR... UD PRN IV 02/08/17 03:00 03/10/17 02:59 Glucagon (Glucagon Inj) 1 mg UD PRN SQ 02/08/17 03:00 03/10/17 02:59 Miscellaneous Information (Consult Glycemic Management Pharmacy) 1 ea UD PRN N/A 02/08/17 13:12 03/10/17 13:11 Fentanyl (Duragesic Patch) 75 mcg Q3D@0900 TD 02/08/17 14:00 02/22/17 13:59 02/11/17 10:29 75 MCG Senna (Senokot Tab) 8.6 mg DAILY PRN PO 02/08/17 17:00 03/10/17 16:59 Ketorolac Tromethamine (Toradol Inj) 15 mg Q12H PRN IV 02/09/17 08:15 02/14/17 08:14 02/09/17 14:19 15 MG Miscellaneous (Soap Suds Enema) 1 ea DAILY PRN WA 02/09/17 22:45 03/11/17 22:44 Insulin Detemir (Levemir Flexpen/ FlexTouch) 6 unit QAM SC 02/11/17 08:00 03/13/17 07:59 02/12/17 09:33 6 UNIT Insulin Detemir (Levemir Flexpen/ FlexTouch) 3 unit HS SC 02/11/17 21:00 03/13/17 20:59 Piperacillin Sod/ Tazobactam Sod 1 ea 1 ea UD PRN N/A 02/11/17 18:55 03/13/17 18:54 Piperacillin Sod/ Tazobactam Sod 3.375 gm/Dextrose 115 ml @ 28.75 mls/ hr Q8H IV 02/12/17 00:00 02/14/17 00:00 02/12/17 08:13 28.75 MLS/HR Acetaminophen 650 mg/Empty Bag 65 ml @ 260 mls/hr Q6H PRN IV 02/11/17 21:15 6/14/17 21:14 02/11/17 21:37 260 MLS/HR Azithromycin/ Dextrose (Zithromax IV/D5 250ml) 255 ml @ 125 mls/hr Q24H IV 02/11/17 22:00 02/18/17 21:59 02/11/17 22:02 125 MLS/HR Vancomycin HCl (Consult) 1 ea UD PRN N/A 02/11/17 22:15 03/13/17 22:14 Senna/Docusate Sodium (Senokot S Tab) 1 tab DAILY PRN PO 02/13/17 08:00 03/15/17 07:59 Review of Systems All systems were reviewed and are negative except as per HPI Physical Exam Date Time Temp Pulse Resp B/P Pulse Ox O2 Delivery O2 Flow Rate FiO2 02/12/17 07:34 36.6 72 16 99/57 96 Room Air 02/12/17 06:21 36.4 02/12/17 04:10 36.4 75 18 117/66 99 02/12/17 00:32 37.2 02/12/17 00:00 64 18 107/65 96 02/12/17 00:00 Nasal Cannula 2.0 02/11/17 22:06 37.5 02/11/17 20:43 38.8 02/11/17 20:00 Nasal Cannula 2.0 02/11/17 19:55 38.9 116 16 147/68 96 Room Air 02/11/17 18:15 38.7 02/11/17 17:30 39.4 106 18 184/83 99 Nasal Cannula 2.0 02/11/17 17:00 39.3 02/11/17 16:30 37.8 02/11/17 16:01 36.9 86 20 148/88 96 Room Air 02/11/17 16:00 96 Room Air 02/11/17 15:28 36.9 76 18 97 Room Air 02/11/17 11:10 36.9 76 18 120/68 97 Room Air General Appearance: WD/WN, no apparent distress Head: normocephalic, atraumatic Eyes: normal inspection, EOMI, sclerae normal ENT: normal ENT inspection, pharynx normal Neck: supple, no adenopathy, thyroid normal, trachea midline Respiratory/Chest: chest non-tender, lungs clear, normal breath sounds, no respiratory distress Cardiovascular: regular rate, rhythm, no gallop, no murmur Abdomen/GI: normal bowel sounds, soft, + tenderness (Right upper quadrant), + hepatomegaly Back: normal inspection, no CVA tenderness Extremities/Musculoskelatal: normal inspection, non-tender Neurologic/Psych: alert, normal mood/affect, oriented x 3 Skin: normal color, warm/dry, no rash Lymphatic: no adenopathy Laboratory Results Date/Time Source Procedure Growth Status 02/11/17 19:10 Blood Blood Culture Pending Received 02/11/17 19:05 Blood Blood Culture Pending Received 02/12/17 09:50 Stool Shiga Toxin Test Pending Leora Batch 02/12/17 09:50 Stool Stool Culture Pending Leora Batch 02/12/17 09:50 Stool C.difficile Toxin B Gene (PCR) Pending Leora Batch Last 24 Hours Test 02/11/17 11:22 02/11/17 16:27 02/11/17 19:05 02/11/17 20:08 Bedside Glucose 174 mg/dl 167 mg/dl Procalcitonin 8.34 ng/ml Lactic Acid Level 1.1 mmol/L Test 02/11/17 20:09 02/12/17 07:48 02/12/17 07:59 02/12/17 09:30 Bedside Glucose 153 mg/dl 209 mg/dl White Blood Count 12.72 K/uL Red Blood Count 3.10 M/uL Hemoglobin 9.1 g/dL Hematocrit 28.9 % Mean Corpuscular Volume 93.2 fL Mean Corpuscular Hemoglobin 29.4 pg Mean Corpuscular Hemoglobin Concent 31.5 g/dl Platelet Count 234 K/uL Mean Platelet Volume 10.3 fL Neutrophils (%) (Auto) 86.7 % Lymphocytes (%) (Auto) 4.9 % Monocytes (%) (Auto) 7.7 % Eosinophils (%) (Auto) 0.2 % Basophils (%) (Auto) 0.2 % Neutrophils # (Auto) 11.02 K/uL Lymphocytes # (Auto) 0.62 K/uL Monocytes # (Auto) 0.98 K/uL Eosinophils # (Auto) 0.03 K/uL Basophils # (Auto) 0.03 K/uL RDW Standard Deviation 54.6 fL RDW Coefficient of Variation 16.0 % Immature Granulocyte % (Auto) 0.3 % Immature Granulocyte # (Auto) 0.04 K/uL Sodium Level 139 mmol/L Potassium Level 5.3 mmol/L Chloride Level 110 mmol/L Carbon Dioxide Level 23 mmol/L Anion Gap 6.0 mmol/L Blood Urea Nitrogen 15 mg/dl Creatinine 1.40 mg/dl Est Creatinine Clear Calc Drug Dose 27.8 ml/min Estimated GFR () 40.7 Estimated GFR (Non- 35.1 BUN/Creatinine Ratio 10.5 Random Glucose 215 mg/dl Calcium Level 7.4 mg/dl Patient Name: PATRICIA PLASCENCIA Unit Number: [id number] Dictated: 02/07/172257 Transcribed: 02/07/172257 ANTONIO Printed Date/Time: [~ rep prt dt]/[~ rep prt tm] [~ rep ct labl] - [~ rep ct ivnm] [facility] [place] [address] Dictated: 02/07/172257 Transcribed: 02/07/172257 Printed Date/Time: [~ rep prt dt]/[~ rep prt tm] [~ rep ct labl] - [~ rep ct ivnm] CT OF THE ABDOMEN AND PELVIS WITH CONTRAST CLINICAL HISTORY: Abdominal pain and fever. Metastatic renal cell carcinoma. COMPARISON STUDY: CT of the abdomen and pelvis December 04, 2016. TECHNIQUE: Following IV administration of 70 mL of Optiray-320, axial images of the abdomen and pelvis were obtained from the lung bases to the proximal femurs. Images were reviewed in the axial, sagittal, and coronal planes. IV contrast was administered without complication. CT DOSE: 448.10 mGy.cm FINDINGS: A 2 cm left lower lobe lesion has increased in size since CT of December 04, 2016 when it measured 1.5 cm. There is no pneumatosis, free air or portal venous gas. A common bile duct stent is in place. Pneumobilia is again noted. Moderate biliary ductal dilatation has slightly increased since exam of December 04, 2016. There are gallstones within the gallbladder. Innumerable liver metastases are similar to prior exam. An index lateral segment lesion measures 5 cm. An IVC filter is in place. There is no evidence for a bowel obstruction. There is no pneumatosis, free air or portal venous gas. Multiple pancreatic lesions are similar to prior exam. The left kidney is surgically absent. The right kidney is unremarkable. A expansile destructive lesion involving the right iliac bone and right sacrum is unchanged with associated pathologic fracture. Expansile mass involving the left lower anterior chest wall is again noted. This is similar to prior exam. There may be associated pathologic fracture. IMPRESSION: 1. Slight increase in size of a 2 cm left lower lobe metastasis. 2. No change in innumerable liver metastases and pancreatic masses since CT of December 04, 2016. 3. Common bile duct stent in place with pneumobilia. Mild increase in biliary ductal dilatation since exam of December 04, 2016. 4. Cholelithiasis. 5. No bowel obstruction. 6. No significant change in multiple skeletal metastases with associated pathologic fractures, as described above. Electronically signed by: Filiberto Powell M.D. 02/07/2017 11:15 PM Dictated Date/Time: 02/07/2017 10:58 PM The status of this report is Signed. Draft = Not yet reviewed or approved by Radiologist. Signed = Reviewed and approved by Radiologist. <AttendingPhy></AttendingPhy> <FamilyPhy>Kamini Dunn M.D.</FamilyPhy> <PrimaryPhy >Kamini Dunn M.D.</PrimaryPhy> <UnitNumber>[id number]</UnitNumber> <VisitNumber> [id number]</VisitNumber> <PatientName>PATRICIA PLASCENCIA</PatientName> < DateOfBirth>1935</DateOfBirth> <Location>[facility]</Location> <ServiceDate>08/16</ServiceDate> <MNE>ESINDI</MNE> <OrderingPhy>Karolina Bravo PA-C</ OrderingPhy> <OrderingPhyMNE>f rep ord dr colin</OrderingPhyMNE> <DictatingPhyMNE> f rep dict dr colin</DictatingPhyMNE> <CCListMNE>f rep ct mne</CCListMNE> < AdmittingPhyMNE>f pt admit dr colin</AdmittingPhyMNE> <AttendingPhyMNE>f pt attend dr colin</AttendingPhyMNE> <ConsultingPhyMNE>f pt consult dr colin</ConsultingPhyMNE> <FamilyPhyMNE>f pt fam dr colin</FamilyPhyMNE> <OtherPhyMNE>f pt other dr colin</OtherPhyMNE> < PrimaryPhyMNE>f pt prim care dr colin</PrimaryPhyMNE> <ReferringPhyMNE>f pt referring dr colin</ReferringPhyMNE> Assessment & Plan 81-year-old female with known metastatic renal cell carcinoma, now with persistent intermittent fever. The fact that symptoms resolved almost completely between episodes without evidence of progressive infection on exam or studies, make to tumor-associated fever much more likely. Both renal cell carcinoma in particular and liver metastases in general associated with this type of fever. Often nonsteroidal anti-inflammatory, specifically Naprosyn, can occasionally blunt this response. I would recommend discontinuation of IV antibiotics and starting dose of Naprosyn around lunchtime as fevers of this type usually occur in the late afternoon/early evening. I will discuss with the hospitalist service. Will follow.
--- NOTE | 2017-02-12 10:42 | DIAGNOSTIC IMAGING REPORT ---
ABDOMEN AND PELVIS CT WITHOUT CONTRAST CT DOSE: HISTORY: Fever. Lung cancer. TECHNIQUE: Multiaxial CT images of the abdomen and pelvis were performed without contrast. COMPARISON STUDY: Abdomen and pelvis CT 02/07/2017. FINDINGS: Interval development of small bilateral pleural effusions. Consolidation at the base of the bilateral lower lobes. Motion artifact. No pneumoperitoneum. No pneumatosis. The right iliac bone destructive lesion with an old pathologic fracture is not significantly changed. Multiple hepatic metastases are again noted. There is pneumobilia and a patent common bile duct stent. Double gallstones. There is an IVC filter. The unenhanced spleen and right kidney are unremarkable. No right-sided hydronephrosis. The left kidney is surgically absent. Pancreas is not well visualized but appears to contain multiple masses. This remains unchanged.. No significant retroperitoneal lymphadenopathy. Bladder is decompressed and therefore not well evaluated. Mild body wall edema. The uterus and ovaries are unremarkable. Suboptimal evaluation for bowel pathology due to the lack of intravenous and oral contrast. However, there is no definite bowel wall thickening or obstruction. Left lower anterior chest wall mass surrounding the ribs remains unchanged. IMPRESSION: 1. Interval development of small bilateral pleural effusions and bilateral lower lobe opacities. This favors atelectasis. However, a pneumonia could also have a similar appearance. 2. No significant change in the multiple hepatic and pancreatic masses. 3. Destructive right iliac bone lesion and left lower anterior chest wall mass are again noted. 4. Cholelithiasis. 5. The common bile duct stent is patent. This results in the pneumobilia. Electronically signed by: Donovan Pan M.D. 02/12/2017 10:41 AM Dictated Date/Time: 02/12/2017 10:32 AM
--- NOTE | 2017-02-12 10:42 | DIAGNOSTIC IMAGING REPORT ---
CT OF THE LEFT SHOULDER CT DOSE: HISTORY: Humeral fracture humeral fracture TECHNIQUE: Multiaxial CT images of the left shoulder were performed and reformatted in the sagittal and coronal plane without the use of contrast. COMPARISON: CT chest dated 02/12/2017 FINDINGS: The large destructive osseous lesion considered pleural-based with obstructive changes of the left second rib is unchanged from the prior exam. There is no definitive extension to the axillary region. The comminuted fracture of the humeral neck is again noted. This is similar in appearance. This potentially is pathologic. Lytic component is present. This has been described previously. There is no evidence of dislocation. The articular services of the humeral head is intact. There is no dislocation. IMPRESSION: 1. Impacted comminuted fracture left humeral neck unchanged from the prior study. 2. This appears to be a pathologic fracture with a lytic component again unchanged. 3. Expansile destructive mass involving left second rib unchanged from the prior study. Electronically signed by: Gordon Marvin M.D. 02/12/2017 10:41 AM Dictated Date/Time: 02/12/2017 10:35 AM
--- NOTE | 2017-02-12 10:48 | DIAGNOSTIC IMAGING REPORT ---
CHEST CT WITHOUT CONTRAST CT DOSE: 697.77 mGy.cm HISTORY: Fever. Lung cancer. r/o pneumonia TECHNIQUE: Multiaxial CT images of the chest were performed without contrast. COMPARISON: Chest 12/04/2016. FINDINGS: No pneumothorax. Interval development of small bilateral pleural effusions. Bilateral lower lobe basilar consolidation. This obscures the left lower lobe nodule. Focal area of fibrotic change within the left lung apex, unchanged. Expansile lesion within the left second rib is again noted. There is a destructive lesion within the left humeral neck resulting in a pathologic fracture. These are not significantly changed. Hepatic metastatic lesions are again noted. The heart is normal in size. Normal caliber thoracic aorta. No mediastinal hilar lymphadenopathy. Mild right axillary lymphadenopathy has slightly improved. Dominant lymph node measures 2.1 x 1.0 cm. IMPRESSION: 1. Slight improvement in the right axillary lymphadenopathy. 2. Interval development of small bilateral pleural effusions with bilateral lower lobe basilar consolidation. This favors atelectasis. However, a pneumonia could also have a similar appearance. The left basilar consolidation obscures the patient's known pulmonary nodule. 3. Left second rib and left humeral neck metastatic lesions are again noted. 3. Small bilateral pleural effusions. 4. Extensive hepatic metastatic disease. Electronically signed by: Donovan Pan M.D. 02/12/2017 10:47 AM Dictated Date/Time: 02/12/2017 10:41 AM
[2017-02-12] MEDS: METRONIDAZOLE 500 MG TAB PO SCH ×2 (13:21→21:22)
--- NOTE | 2017-02-12 14:23 | Pharmacy Progress Note ---
Glycemic: Assessment & Plan Date of Service February 12, 2017. Assessment & Plan Outpatient Anti-diabetic Regimen: * Levemir * 6 units SQ q AM * 3 units SQ q PM * A1c = 8.1 % 02/07/17 ASSESSMENT: * ADA & AACE recommend a goal blood sugar range 140-180 mg/dl for the majority of critically ill & non-critically ill patients. * 81 y/o presumed type 2 diabetic who uses basal insulin as an outpatient * A1c indicates appropriate control for patient based on age/comorbidities * At home, it is noted that Ms Malagon feels hypoglycemia when BSG is ~100mg /dL * will utilize a higher, ADA recommended, goal range for this reason 02/12/17 * Patient refused her PM dose of Levemir last evening, and has been hyperglycemic as a result today. * Novolog parameters were tightened this morning in an effort to achieve better glycemic control. * Will re-assess tomorrow. 02/11/17 * Patient receiving a total of 30 units of insulin yesterday with BSGs ranging from 142 - 259 mg/dL. * Fasting BSG improved and at goal after receiving 8 units of Lantus yesterday. Will resume home dose of Lantus at this time (total of 9 units daily). * Continue current NovoLog parameters PLAN FOR INPATIENT GLYCEMIC CONTROL: * Basal insulin: * Levemir 6 units SQ aAM * Levemir 3 units SQ qPM * Bolus insulin: * NovoLog SQ AC/HS - CF: 25 mg/dL/unit - CR: 1 unit per 9 g of CHO consumed - Goal: 140-180mg/dL per ADA recommendations * A1c * current, added to discharge instructions RECOMMENDATIONS FOR DISCHARGE: * Ms Malagon can continue home regimen at discharge. * Please note that the plan above was derived based on current level of insulin resistance and hospital stress. These recommendations are appropriate for inpatient admission only. Plan of care upon discharge will need to be reassessed to avoid potential outpatient hypo/hyperglycemia. Thank you.
[2017-02-12] MEDS ORDERED: FENTANYL PATCH REMOVE & WASTE SCH (20:00)
[2017-02-12] MEDS ORDERED: FENTANYL 50 MCG/HR TDSY TD SCH (20:00)
[2017-02-12] MEDS ORDERED: NAPROXEN 250 MG TAB PO PRN (20:00)
[2017-02-12] MEDS ORDERED: NITROGLYCERIN 0.4 MG SL PER TAB CHARGE ONE (23:01)
[2017-02-12] MEDS ORDERED: NITROGLYCERIN 0.4 MG SL PER TAB CHARGE SL STA (23:01)
--- NOTE | 2017-02-12 23:19 | ORTHOPEDIC CONSULTATION ---
DATE OF CONSULTATION: 02/12/2017 HISTORY OF PRESENT ILLNESS: The patient is an 81-year-old female well known to my practice. We are following her for a pathological fracture of proximal humerus. She has had previous x-rays and CT scans in the past. She was felt in the past to have a delayed or nonunion and had a stable fracture position, although she did have some angulation and malunion, there was good bone contact as we treated her conservatively. She said her pain has subsided significantly in her shoulder and she can use her arm at the side, she has not tried to raise it overhead. She really does not have any pain at rest at this time and she has discontinued use of her sling. She was using a bone stimulator. MEDICAL HISTORY: At this time, she presents with fevers. She has known metastatic disease. She had a history of DVT in the past. SURGICAL HISTORY: She has had left-side nephrectomy, IVC filter, 2 C-sections. MEDICATIONS: See H\T\P. PHYSICAL EXAMINATION: GENERAL: Demonstrates an elderly female, resting comfortably in bed. MUSCULOSKELETAL: Her left shoulder, she has some passive range of motion to about 60 degrees of abduction, forward elevation and with rotation, the humeral head and shaft move together without any crepitation. There is no ecchymosis, no swelling in the left arm. Range of motion is nonpainful. The CT scan reviewed, demonstrates an impacted humerus fracture with some apex anterior angulation. There is no clear fracture line extending to the metaphyseal part of the bone. It looks like the intramedullary bone is in continuity from the humeral head to the shaft. The cortex, however, does not look completely healed or remodeled, and there is some callus around the fracture site. There has been no change in alignment from the previous CAT scan obtained. It is difficult to say with any certainty whether this is completely healed at this time or just in a stable position. CT abdomen also showed an iliac crest lesion and a CT of the chest also showed a 2nd rib lesion on the left rib area. She also had metastatic disease involving the liver and pancreas. ASSESSMENT: Left proximal humerus fracture which is pathological. There may be some healing or at least there is a stable alignment of the fracture fragments. There is good bone contact between the shaft and humeral head and they move in continuity consistent with stable situation, whether it is healed or delayed union. Not clearly a nonunion at this time. PLAN: Conservative care. She is not a surgical candidate. She does not have any pain, so no particular treatment is required. Be careful about any weightbearing with that extremity as this could cause further displacement or increased pain due to the pathological lesions in her left proximal humerus and the recent fracture. If the patient develops any lower extremity pain, we should be reconsulted. Otherwise, we will see her back on an as-needed basis.
[2017-02-12 23:56] LABS: PARTIAL THROMBOPLASTIN RATIO 1.1
[2017-02-12] MEDS ORDERED: ACETAMINOPHEN 325 MG TAB PO ONE (23:58)
[2017-02-13] VITALS (9 sets, daily range): BP systolic 96–111; BP diastolic 56–64; PULSE 67–83; TEMP 36.5–37.8; O2SAT 94–98; BMI 30.1
[2017-02-13 00:03] LABS: BLOOD UREA NITROGEN 21 mg/dl (7-18); BUN/CREATININE RATIO 12.2 (10-20); CALCIUM 7.6 mg/dl (8.5-10.1); CARBON DIOXIDE 26 mmol/L (21-32); CHLORIDE 107 mmol/L (98-107); GLUCOSE 107 mg/dl (70-99); MAGNESIUM 2.2 mg/dl (1.8-2.4); POTASSIUM 4.5 mmol/L (3.5-5.1); SODIUM 139 mmol/L (136-145)
[2017-02-13] MEDS: ACETAMINOPHEN IV 650 MG in EMPTY BAG 0 ML IV PRN (00:14)
[2017-02-13] MEDS: CHECK FENTANYL PATCH PLACEMENT SCH ×3 (00:21→17:12)
[2017-02-13] MEDS ORDERED: TRAMADOL HCL 50 MG TAB PO PRN (00:30)
[2017-02-13] MEDS ORDERED: ONDANSETRON INJ 2 MG/ML 2 ML VIAL IV PRN (00:30)
[2017-02-13] MEDS ORDERED: HYDROmorphone INJ 1 MG/ML SYR IV PRN (00:30)
[2017-02-13] MEDS ORDERED: ALBUT/IPRATROP 3MG/0.5MG NEB 3 ML VIAL INH PRN (00:45)
[2017-02-13] MEDS: HYDROCODONE/ACETAMINOPHEN 7.5/325MG TAB PO PRN ×2 (00:56→12:14)
[2017-02-13 01:07] LABS: ALKALINE PHOSPHATASE 215 U/L (45-117); ALT/SGPT 34 U/L (12-78); AST/SGOT 30 U/L (15-37)
[2017-02-13 01:27] LABS: URINE APPEARANCE CLOUDY (CLEAR); URINE BILIRUBIN NEG (NEG); URINE COLOR YELLOW; URINE EPITHELIAL CELL AUTO >30 /lpf (0-5); URINE NITRITE NEG (NEG); URINE PH 5.5 (4.5-7.5); URINE SPECIFIC GRAVITY 1.015 (1.000-1.030); UROBILINOGEN NEG (NEG); ZZUR CULT IF INDIC CLEAN CATCH YES
[2017-02-13 01:32] LABS: MANUAL MICROSCOPIC REQUIRED? NO; REVIEW REQ? YES
--- NOTE | 2017-02-13 05:39 | Clinical Documentation Query ---
Dr. RINCON CLINICAL DOCUMENTATION QUERY 81 year old female who presents to the Emergency Room with complaints of fever, chills, & lower abdominal pain. Initial impression by the ED was sepsis. In your clinical opinion is this patient being managed for: ( ) Sepsis evidenced by refractory fever, leukocytosis, and tachycardia POA in setting of UTI ( x) Other explanation of clinical findings (Please Explain) ( ) Unable to determine (Please Define) ( ) Need to Discuss ( ) Not Agree Fever possible not due to infectious cause Underlying tumor burden -Heme onc agrees Cultures were negative Fever resolved with Tylenol only -Ainsley Rincon MD The medical record reflects the following clinical findings, treatment, and risk factors. Clinical Indicators: Fever (39.4), tachycardia (110), Leukocytosis 12.74 with Neut% 92.5, and UC +E.Coli. Treatment: IVF boluses, IV Zosyn, IV Vancomycin, IV Cefepime, IV Azithromycin, Risk Factors: Age, immunosuppression due to chemotherapy, and underlying UTI. Please clarify and document your clinical opinion in the progress notes and discharge summary. Terms such as "probable", "suspected", "likely", "questionable", "possible", or "still to be ruled out" are acceptable. IF IN AGREEMENT, YOU MUST DOCUMENT ABOVE DIAGNOSTIC STATEMENT IN DAILY PROGRESS NOTES AND DISCHARGE SUMMARY. This document is not part of the patient's record. Thank You, Eloy Abraham RN [phone]
[2017-02-13] MEDS: LEVOTHYROXINE 100 MCG TAB PO SCH (05:47)
[2017-02-13] MEDS: METRONIDAZOLE 500 MG TAB PO SCH (05:47)
[2017-02-13 06:04] LABS: BASO % 0.1 %; BASO ABS # 0.02 K/uL (0-0.2); COMPLETE YES; EOS % 0.4 %; HEMATOCRIT 29.3 % (37-47); IG% 0.4 %; LYMPH % 3.6 %; LYMPH ABS # 0.49 K/uL (1.2-3.4); MEAN CELL VOLUME 91.6 fL (80-100); MEAN CORPUSCULAR HEMOGLOBIN 28.1 pg (25-34); MEAN CORPUSCULAR HGB CONC 30.7 g/dl (32-36); MEAN PLATELET VOLUME 9.8 fL (7.4-10.4); MONO % 7.2 %; NEUT % 88.3 %; PLATELET COUNT 207 K/uL (130-400); WHITE BLOOD COUNT 13.47 K/uL (4.8-10.8)
--- NOTE | 2017-02-13 06:22 | DIAGNOSTIC IMAGING REPORT ---
CHEST ONE VIEW PORTABLE CLINICAL HISTORY: sob dyspnea COMPARISON STUDY: 02/11/2017 FINDINGS: Components of congestive heart failure slightly improved in the prior exam. Small unchanging left pleural effusion. Unchanging destructive pleural-based lesion left pulmonary apex. Pathologic fracture left humeral neck is noted. IMPRESSION: Findings of congestive failure slightly improved radiographically. All additional findings unchanged Electronically signed by: Gordon Marvin M.D. 02/13/2017 6:21 AM Dictated Date/Time: 02/13/2017 6:20 AM
[2017-02-13 06:37] LABS: BLOOD UREA NITROGEN 20 mg/dl (7-18); CALCIUM 7.2 mg/dl (8.5-10.1); CARBON DIOXIDE 26 mmol/L (21-32); CHLORIDE 109 mmol/L (98-107); GLUCOSE 84 mg/dl (70-99); POTASSIUM 4.7 mmol/L (3.5-5.1); SODIUM 139 mmol/L (136-145)
[2017-02-13] MEDS: CYANOCOBALAMIN 500 MCG TAB (VIT B-12) PO SCH (07:52)
[2017-02-13] MEDS: CALCIUM 600MG + VIT D 400 IU TAB PO SCH (07:52)
[2017-02-13] MEDS ORDERED: DOCUSATE SODIUM/SENNA 50/8.6MG TAB PO PRN (08:00)
[2017-02-13] MEDS: HEPARIN SOD 5000 UNIT/0.5 ML CARP SQ SCH ×2 (09:00→20:11)
[2017-02-13] MEDS: INSULIN ASPART 100 UNITS/ML 3 ML PEN SC SCH ×4 (09:02→20:07)
[2017-02-13] MEDS: INSULIN DETEMIR FLEXPEN/FLEX TOUCH 100 UNITS/ML 3ML SC SCH ×2 (09:05→20:10)
[2017-02-13] MEDS ORDERED: SODIUM CHLORIDE 0.9% 1000ML 1,000 ML IV SCH (11:00)
--- NOTE | 2017-02-13 11:01 | Progress Note ---
Medicine Progress Note Date & Time of Visit: February 13, 2017 at 10:51. Subjective patient noted to have febrile episode again yesterday had 1 loose BM last night given Tylenol IV with resolution of fever seen sitting up in chair today, comfortable had some breakfast, no abdominal pain, nausea denies shortness of breath, cough, chest pain no other symptoms Objective Last 8 Hrs Date Time Temp Pulse Resp B/P Pulse Ox O2 Delivery O2 Flow Rate FiO2 02/13/17 08:30 98 Room Air 02/13/17 07:32 36.6 76 18 96/56 95 Room Air 02/13/17 04:34 36.7 83 20 104/58 94 Room Air Physical Exam: General- oriented x 3, not in distress, speaks in sentences with no effort, no accessory muscle use Eyes- anicteric Neck- no JVD Lungs- clear breath sounds, no rales or wheezing bilaterally Heart- normal rate, regular rhythm; no murmurs Abdomen- normal bowel sounds, non distended, soft, no tenderness Extremities- no pretibial edema or erythema Neuro- alert, oriented x 3; no gross focal deficits Skin- warm & dry Laboratory Results: Last 24 Hours Test 02/12/17 11:33 02/12/17 14:25 02/12/17 16:36 02/12/17 20:12 Bedside Glucose 311 mg/dl 266 mg/dl 244 mg/dl Potassium Level 5.1 mmol/L Test 02/12/17 23:24 02/13/17 01:05 02/13/17 05:45 02/13/17 07:13 Activated Partial Thromboplast Time 28.4 SECONDS Partial Thromboplastin Ratio 1.1 Sodium Level 139 mmol/L 139 mmol/L Potassium Level 4.5 mmol/L 4.7 mmol/L Chloride Level 107 mmol/L 109 mmol/L Carbon Dioxide Level 26 mmol/L 26 mmol/L Anion Gap 6.0 mmol/L 4.0 mmol/L Blood Urea Nitrogen 21 mg/dl 20 mg/dl Creatinine 1.70 mg/dl 1.70 mg/dl Est Creatinine Clear Calc Drug Dose 22.9 ml/min 22.7 ml/min Estimated GFR () 32.2 32.2 Estimated GFR (Non- 27.8 27.8 BUN/Creatinine Ratio 12.2 12.0 Random Glucose 107 mg/dl 84 mg/dl Calcium Level 7.6 mg/dl 7.2 mg/dl Magnesium Level 2.2 mg/dl Total Bilirubin 0.3 mg/dl Direct Bilirubin 0.2 mg/dl Aspartate Amino Transf (AST/SGOT) 30 U/L Alanine Aminotransferase (ALT/SGPT) 34 U/L Alkaline Phosphatase 215 U/L Troponin I < 0.015 ng/ml < 0.015 ng/ml Total Protein 6.0 gm/dl Albumin 1.9 gm/dl Lipase 39 U/L Urine Color YELLOW Urine Appearance CLOUDY Urine pH 5.5 Urine Specific [place] 1.015 Urine Protein 1+ Urine Glucose (UA) NEG Urine Ketones NEG Urine Occult Blood 3+ Urine Nitrite NEG Urine Bilirubin NEG Urine Urobilinogen NEG Urine Leukocyte Esterase SMALL Urine WBC (Auto) 10-30 /hpf Urine RBC (Auto) >30 /hpf Urine Hyaline Casts (Auto) 1-5 /lpf Urine Epithelial Cells (Auto) >30 /lpf Urine Bacteria (Auto) 1+ Urine Renal Epithelial Cells /lpf Urine Yeast (Auto) BUD W/ HYPHAE White Blood Count 13.47 K/uL Red Blood Count 3.20 M/uL Hemoglobin 9.0 g/dL Hematocrit 29.3 % Mean Corpuscular Volume 91.6 fL Mean Corpuscular Hemoglobin 28.1 pg Mean Corpuscular Hemoglobin Concent 30.7 g/dl Platelet Count 207 K/uL Mean Platelet Volume 9.8 fL Neutrophils (%) (Auto) 88.3 % Lymphocytes (%) (Auto) 3.6 % Monocytes (%) (Auto) 7.2 % Eosinophils (%) (Auto) 0.4 % Basophils (%) (Auto) 0.1 % Neutrophils # (Auto) 11.89 K/uL Lymphocytes # (Auto) 0.49 K/uL Monocytes # (Auto) 0.97 K/uL Eosinophils # (Auto) 0.05 K/uL Basophils # (Auto) 0.02 K/uL RDW Standard Deviation 53.8 fL RDW Coefficient of Variation 16.0 % Immature Granulocyte % (Auto) 0.4 % Immature Granulocyte # (Auto) 0.05 K/uL Bedside Glucose 125 mg/dl Assessment & Plan ASSESSMENT AND PLAN: This is an 81-year-old female with history of Metastatic Renal Cell CA, 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 Recurrent Fever, likely from from Underlying Malignancy C diff colitis - has been treated for E coli since admission but still having intermittent fevers procalcitonin and WBC elevated - repeat pancultures obtained so far, patient is having some diarrhea and (+) C diff - ID consulted, recommend to d/c all antibiotics except for Vanco PO fever also felt to be from underlying metastatic Cancer, recommend Naproxen at lunch time at present, crea elevated, will hydrate with gentle IV fluids today and order Tylenol 650mg BID - appreciate ID consult Abdominal pain and fever, likely Multifactorial - this is patient's initial presentation - referred pain from R Iliac bone lesion? pain seems to be controlled adequately overall increased Fentanyl patch to 75 mcg, given low dose Toradol pain adequately controlled Fentanyl lowered to 50mcg 02/12/17, so far pain is well controlled - UTI, E coli initial urine culture E coli pansensitive and blood cultures negative was on Zosyn then changed to Cefepime then Ceftriaxone received total of 4 days of antibiotics d/c antibiotics per Dr. Conner - from Constipation Senokot S ordered, Milk of Mg KUB: no obstruction resolved - possible Biliary colic GB US: no cholecysitis, (+) GB filled with stone LFTs ok Surgery consulted Dr. Parks, pain unlikely from biliary colic CKD 3 - baseline crea 1.2-1.3 - crea 1.7 today resume gentle IV fluids monitor Right Calf Pain - no swelling, warmth, erythema - as per daughter , anticoagulation contraindicated with patient due to elevated INR when she was taking coumadin also has IVC filter - will observe for now Metastatic Renal cancer with skeletal metastasis and liver metastasis and also pathological fractures - consulted Dr. Conner hold chemo for now - ff up with Dr. Conner as scheduled Left Humeral Fracture - chronic - CT upper ext ordered consulted Ortho History of hypertension - held lasix, lisinopril as patient's BP was marginal - at one point, had a BP surge associated with pain episode - so far, BP controlled while off Lisinopril, Lasix - continue to monitor off Lisinopril and Lasix History of diabetes. - continue home Insulin dose History of chronic diastolic congestive heart failure with a grade 1 diastolic dysfunction - on Lasix as needed. euvolemic monitor while on IV fluids History of hypothyroidism, continue Synthroid. Gastroesophageal reflux disease, continue Protonix. Deep vein thrombosis prophylaxis, SCDs and heparin ordered Disposition: anticipate d/c home with home health svc patient lives with her daughters case discussed in detail with patient and her daughter Naz they are comfortable and agreeable with plan of care Consultants: General Surgery Dr. Parks Procedures: CT OF THE ABDOMEN AND PELVIS WITH CONTRAST CLINICAL HISTORY: Abdominal pain and fever. Metastatic renal cell carcinoma. COMPARISON STUDY: CT of the abdomen and pelvis December 04, 2016. TECHNIQUE: Following IV administration of 70 mL of [id number], axial images of the abdomen and pelvis were obtained from the lung bases to the proximal femurs. Images were reviewed in the axial, sagittal, and coronal planes. IV contrast was administered without complication. CT DOSE: 448.10 mGy.cm FINDINGS: A 2 cm left lower lobe lesion has increased in size since CT of December 04, 2016 when it measured 1.5 cm. There is no pneumatosis, free air or portal venous gas. A common bile duct stent is in place. Pneumobilia is again noted. Moderate biliary ductal dilatation has slightly increased since exam of December 04, 2016. There are gallstones within the gallbladder. Innumerable liver metastases are similar to prior exam. An index lateral segment lesion measures 5 cm. An IVC filter is in place. There is no evidence for a bowel obstruction. There is no pneumatosis, free air or portal venous gas. Multiple pancreatic lesions are similar to prior exam. The left kidney is surgically absent. The right kidney is unremarkable. A expansile destructive lesion involving the right iliac bone and right sacrum is unchanged with associated pathologic fracture. Expansile mass involving the left lower anterior chest wall is again noted. This is similar to prior exam. There may be associated pathologic fracture. IMPRESSION: 1. Slight increase in size of a 2 cm left lower lobe metastasis. 2. No change in innumerable liver metastases and pancreatic masses since CT of December 04, 2016. 3. Common bile duct stent in place with pneumobilia. Mild increase in biliary ductal dilatation since exam of December 04, 2016. 4. Cholelithiasis. 5. No bowel obstruction. 6. No significant change in multiple skeletal metastases with associated pathologic fractures, as described above. LEFT SHOULDER MIN 2 VIEWS ROUTINE CLINICAL HISTORY: Fx left proximal humerus fx trauma COMPARISON: None DISCUSSION: Slightly impacted fracture left humeral neck. No evidence of dislocation. Degenerative change acromioclavicular joint. There is no evidence for soft tissue swelling. Expansile lesion involving the left second and possibly third rib with potential of pleural component. This is been described previously. IMPRESSION: Fracture left humeral neck. Metastatic disease upper chest which is been described previously. Degenerative change left acromioclavicular joint. ABDOMINAL ULTRASOUND, RIGHT UPPER QUADRANT HISTORY: Fever. Right upper Quadrant abdominal pain. R/O CHOLECYSTITIS. COMPARISON: Abdominal ultrasound 05/31/2015. Abdomen and pelvis CT 02/07/2017. FINDINGS: Pancreas: Obscured by overlying bowel gas. Liver: Mildly enlarged measuring 20 cm in length. Multiple hepatic masses measuring up to 3.5 cm. There is suggestion of pneumobilia. Gallbladder: Multiple stones completely filling the gallbladder resulting in diffuse shadowing and suboptimal evaluation. Gallbladder wall is is normal in thickness measuring up to 2.5 mm. No pericholecystic fluid. CBD: A common bile duct stent is visualized. Right kidney: No hydronephrosis. IMPRESSION: 1. Multiple hepatic masses again noted consistent with metastatic disease. 2. A common bile duct stent is identified. No intrahepatic bile duct dilatation. 3. The gallbladder is completely filled with stones. No definite gallbladder wall thickening. KUB HISTORY: Fever. Ileus. r/o obstruction, ileus COMPARISON: KUB 01/16/2012. Abdomen and pelvis CT 02/07/2017. FINDINGS: Gas-filled nondistended colon. There are few gas-filled nondistended loops of small bowel. No evidence for bowel obstruction. There is a metallic common bile duct stent and an IVC filter which are unchanged in position. Surgical clips within the left side the abdomen. Pathologic fracture within the right iliac bone is again noted. No renal calculi. No ureteral calculi. No pneumoperitoneum or pneumatosis. IMPRESSION: Multiple gas-filled loops of large and small bowel which are not significantly distended. No evidence for bowel obstruction. Current Inpatient Medications: Current Inpatient Medications Medications (Trade) Dose Ordered Sig/Suleiman Route Start Time Stop Time Status Last Admin Dose Admin Acetaminophen (Tylenol Tab) 650 mg Q4H PRN PO 02/08/17 00:45 02/11/17 16:38 650 MG Al Hydrox/Mg Hydrox/Simethicone (Maalox Max Susp) 15 ml Q4H PRN PO 02/08/17 00:45 03/10/17 00:44 Magnesium Hydroxide (Milk Of Magnesia Susp) 30 ml Q6H PRN PO 02/08/17 00:45 03/10/17 00:44 02/10/17 12:44 30 ML Polyethylene (Miralax Powder Packet) 17 gm DAILY PRN PO 02/08/17 02:30 03/10/17 02:29 Heparin Sodium (Porcine) (Heparin Sq 5000 Unit/0.5ml) 5,000 unit Q12H SQ 02/08/17 09:00 03/10/17 08:59 Calcium/Vitamin D (Caltrate Plus Tab) 1 tab DAILY PO 02/08/17 08:00 03/10/17 08:59 02/11/17 08:19 1 TAB Cyanocobalamin (Vitamin B-12 Tab) 1,000 mcg DAILY PO 02/08/17 08:00 03/10/17 08:59 02/12/17 08:10 1,000 MCG Acetaminophen/ Hydrocodone Bitart ([place] 7.5/325 Tab) 2 TAB FOR SEVERE PAIN Q4 PRN PO 02/08/17 00:45 02/22/17 00:44 02/13/17 00:56 2 TAB Levothyroxine Sodium (Synthroid Tab) 100 mcg DAILYBB PO 02/08/17 06:30 03/10/17 06:29 02/13/17 05:47 100 MCG Pantoprazole Sodium (Protonix Tab) 40 mg DAILY PO 02/08/17 08:00 03/10/17 08:59 Future Hold 02/12/17 08:09 40 MG Insulin Aspart (novoLOG ASPART) SLIDING SCALE G... ACHS SC 02/08/17 06:30 03/10/17 06:29 02/12/17 21:20 3 UNITS Glucose (Glucose 40% Gel) 15-30 GRAMS 15 GRAMS... UD PRN PO 02/08/17 03:00 03/10/17 02:59 Glucose (Glucose Chew Tab) 4-8 Tablets 4 Tabl... UD PRN PO 02/08/17 03:00 03/10/17 02:59 Dextrose (Dextrose 50% 50ML Syringe) 25-50ML OF 50% DW IV FOR... UD PRN IV 02/08/17 03:00 03/10/17 02:59 Glucagon (Glucagon Inj) 1 mg UD PRN SQ 5/12/17 03:00 03/10/17 02:59 Miscellaneous Information (Consult Glycemic Management Pharmacy) 1 ea UD PRN N/A 02/08/17 13:12 03/10/17 13:11 Senna (Senokot Tab) 8.6 mg DAILY PRN PO 02/08/17 17:00 03/10/17 16:59 Miscellaneous (Soap Suds Enema) 1 ea DAILY PRN MA 02/09/17 22:45 03/11/17 22:44 Insulin Detemir (Levemir Flexpen/ FlexTouch) 6 unit QAM SC 02/11/17 08:00 03/13/17 07:59 02/13/17 09:05 6 UNIT Insulin Detemir 3 unit 3 unit HS SC 02/11/17 21:00 03/13/17 20:59 02/12/17 21:21 3 UNIT Acetaminophen/ Empty Bag (Ofirmev Iv/ Empty Iv Bag 100ml) 65 ml @ 260 mls/hr Q6H PRN IV 02/11/17 21:15 03/13/17 21:14 02/13/17 00:14 260 MLS/HR Senna/Docusate Sodium (Senokot S Tab) 1 tab DAILY PRN PO 02/13/17 08:00 03/15/17 07:59 Metronidazole (Flagyl Tab) 500 mg Q8 PO 02/12/17 13:00 02/26/17 12:59 02/13/17 05:47 500 MG Fentanyl (Duragesic Patch) 50 mcg Q3D@2000 TD 02/12/17 20:00 02/26/17 19:59 02/12/17 21:17 50 MCG Miscellaneous (Fentanyl Patch Remove & Waste) 1 ea Q3D@2000 N/A 02/12/17 20:00 03/14/17 19:59 02/12/17 20:00 1 EA Miscellaneous Information (Check Fentanyl Patch Placement) 1 ea QS N/A 02/13/17 00:00 03/15/17 00:00 02/13/17 07:53 1 EA Tramadol HCl (Ultram Tab) 25 mg Q6H PRN PO 02/13/17 00:30 03/15/17 00:29 Hydromorphone HCl (Dilaudid Inj) 0.5 mg Q6H PRN IV 02/13/17 00:30 02/27/17 00:29 Ondansetron HCl (Zofran Inj) 4 mg Q6H PRN IV 02/13/17 00:30 03/15/17 00:29 Albuterol/ Ipratropium (Duoneb) 3 ml Q2H PRN INH 02/13/17 00:45 03/15/17 00:44 Vancomycin HCl (Vancomycin Oral Soln) 125 mg QID PO 02/13/17 12:00 02/27/17 11:59 Raspberry (Raspberry Syrup 5ml Cup) 5 ml QID PO 02/13/17 12:00 02/27/17 11:59
[2017-02-13] MEDS ORDERED: CONSULT PHARMACY PRN (11:19)
[2017-02-13] MEDS: VANCOMYCIN HCL 125 MG/2.5ML SOLN PO SCH ×3 (11:50→20:06)
[2017-02-13] MEDS: RASPBERRY SYRUP 5 ML UDP PO SCH ×3 (11:51→20:06)
[2017-02-13] MEDS: ACETAMINOPHEN 325 MG TAB PO SCH ×2 (12:15→20:06)
--- NOTE | 2017-02-13 12:22 | Pharmacy Progress Note ---
Glycemic Control: Progress Nt Date of Service February 13, 2017. Scope Glycemic Pharmacist consulted by Dr Sabillon on 02/13/17 for glycemic control and to write orders per [facility] inpatient glycemic control protocol. Objective Accuchecks BSG (last 24hrs): Test 02/12/17 11:33 02/12/17 16:36 02/12/17 20:12 02/12/17 23:24 Bedside Glucose 311 mg/dl (70-90) 266 mg/dl (70-90) 244 mg/dl (70-90) Random Glucose 107 mg/dl (70-99) Test 02/13/17 05:45 02/13/17 07:13 Random Glucose 84 mg/dl (70-99) Bedside Glucose 125 mg/dl (70-90) Laboratory Data (last 24hrs) Test 02/12/17 14:25 02/12/17 23:24 02/13/17 05:45 Potassium Level 5.1 mmol/L 4.5 mmol/L 4.7 mmol/L Anion Gap 6.0 mmol/L 4.0 mmol/L BUN/Creatinine Ratio 12.2 12.0 Blood Urea Nitrogen 21 mg/dl 20 mg/dl Creatinine 1.70 mg/dl 1.70 mg/dl Sodium Level 139 mmol/L 139 mmol/L White Blood Count 13.47 K/uL Red Blood Count 3.20 M/uL Hemoglobin 9.0 g/dL Hematocrit 29.3 % Mean Corpuscular Volume 91.6 fL Mean Corpuscular Hemoglobin 28.1 pg Mean Corpuscular Hemoglobin Concent 30.7 g/dl Platelet Count 207 K/uL Mean Platelet Volume 9.8 fL Neutrophils (%) (Auto) 88.3 % Lymphocytes (%) (Auto) 3.6 % Monocytes (%) (Auto) 7.2 % Eosinophils (%) (Auto) 0.4 % Basophils (%) (Auto) 0.1 % Neutrophils # (Auto) 11.89 K/uL Lymphocytes # (Auto) 0.49 K/uL Monocytes # (Auto) 0.97 K/uL Eosinophils # (Auto) 0.05 K/uL Basophils # (Auto) 0.02 K/uL HbA1c: Test 02/07/17 22:04 Hemoglobin A1c 8.1 % (4.5-5.6) H Recent Pertinent Medications Outpatient Anti-diabetic Regimen: * Levemir 6 units in qAM and 3 units qPM * A1c = 8.1 % 02/07/17 The patient is currently receiving: * Basal insulin: Levemir 6 units in AM and 3 units in PM * Correctional Insulin: Novolog Correction per scale ACHS Goal Range: Low 140 mg/dL - High 180 mg/dL Correction Factor: 25 mg/dL/unit * Prandial insulin: Per carb ratio of 1 unit per 9 grams CHO consumed Risk Factors for Insulin Resistance: * Infection: C diff + on oral antibiotics * Diet: diabetic diet Assessment & Plan ASSESSMENT: * ADA & AACE recommend a goal blood sugar range 140-180 mg/dl for the majority of critically ill & non-critically ill patients. However, more stringent targets may be selected in individual cases. * Ms Adams was admitted on 02/08/17 with a fever and possible UTI. She has been on several different antibiotics with recurring fevers. Currently, she is C diff positive and is on oral antibiotics. * Patient received 29 units of insulin yesterday with blood sugars ranging between 20-311 mg/dL (patient had refused Levemir the day before yesterday so reasonable for elevated blood sugars). Currently, blood sugar controlled with blood sugar of 125 mg/dL. Patient's blood sugar was elevated at lunchtime as she refused carbohydrate coverage for toast consumed at breakfast. Continuing current regimen as patient on home regimen of Levemir and correctional insulin controlling blood sugars when utilized. PLAN FOR INPATIENT GLYCEMIC CONTROL: no changes needed today * Continuing Levemir 6 units in AM and 3 units in PM * Continuing correction factor of 25 mg/dl/unit * Continuing carb ratio of 1 unit per 9 grams CHO consumed * Continuing goal range of Low 140 mg/dL - High 180 mg/dL RECOMMENDATIONS FOR DISCHARGE: * patient may continue home regimen as has reasonable blood sugar control for her age. Thank you.
--- NOTE | 2017-02-13 17:27 | Infectious Disease Progress Nt ---
Progress Note Date of Service February 13, 2017. Subjective Pt evaluation today including: conversation w/ patient, conversation w/ family , physical exam, chart review, lab review, review of studies, conversation w/ business intelligence consultant, review of inpatient medication list patient with another episode of fever and chills last night, currently afebrile. All cultures remain negative. Having diarrhea, and C diff PCR positive consistent with C difficile colitis. No other new complaints. All Other Systems: Reviewed and Negative Medications RUN DATE: 02/12/17 [facility] LAB PAGE 1 RUN TIME: 1218 Specimen Inquiry PATIENT: PATRICIA PLASCENCIA LOC: [facility] U # : [id number] AGE/SX: 81/F ROOM: 09 REG : 02/08/[address]: Jesu Sabillon MD : 1935 BED: 1 DIS : STATUS: ADM IN TLOC: SPEC #: [id number] SKINNY: 02/12/17 STATUS: COMP REQ #: [id number] RECD: 02/12/17-[address]: Jesu Sabillon MD SOURCE: STOOL ENTR: 02/12/[address] [facility] [address]: Irvin Peterson M.D. [facility]: Chicho Parks D.O., Rajendra P., MD Patterson, Jennifer.Mis Dawn M.D. Wolfe, David W., M.D. ORDERED: CDIFF TOXIN B COMMENTS: Has Specimen Been Obtained/Collected? Y Procedure Result Verified Site CDIFF TOXIN B GENE*(2 YR OR >) Final 02/12/17-1218 Positive for C. difficile toxin B gene RESULTS WERE ALSO CALLED TO [facility] INFECTION CONTROL ANSWERING MACHINE ON 02/12/17 BY FORREST. Current Inpatient Medications Medications (Trade) Dose Ordered Sig/Suleiman Route Start Time Stop Time Status Last Admin Dose Admin Al Hydrox/Mg Hydrox/Simethicone (Maalox Max Susp) 15 ml Q4H PRN PO 02/08/17 00:45 03/10/17 00:44 Magnesium Hydroxide (Milk Of Magnesia Susp) 30 ml Q6H PRN PO 02/08/17 00:45 03/10/17 00:44 02/10/17 12:44 30 ML Polyethylene (Miralax Powder Packet) 17 gm DAILY PRN PO 02/08/17 02:30 03/10/17 02:29 Heparin Sodium (Porcine) (Heparin Sq 5000 Unit/0.5ml) 5,000 unit Q12H SQ 02/08/17 09:00 03/10/17 08:59 Calcium/Vitamin D (Caltrate Plus Tab) 1 tab DAILY PO 02/08/17 08:00 03/10/17 08:59 02/11/17 08:19 1 TAB Cyanocobalamin (Vitamin B-12 Tab) 1,000 mcg DAILY PO 02/08/17 08:00 03/10/17 08:59 02/12/17 08:10 1,000 MCG Acetaminophen/ Hydrocodone Bitart ([place] 7.5/325 Tab) 2 TAB FOR SEVERE PAIN Q4 PRN PO 02/08/17 00:45 02/22/17 00:44 02/13/17 12:14 1 TAB Levothyroxine Sodium (Synthroid Tab) 100 mcg DAILYBB PO 02/08/17 06:30 03/10/17 06:29 02/13/17 05:47 100 MCG Pantoprazole Sodium (Protonix Tab) 40 mg DAILY PO 02/08/17 08:00 03/10/17 08:59 Future Hold 02/12/17 08:09 40 MG Insulin Aspart (novoLOG ASPART) SLIDING SCALE G... ACHS SC 02/08/17 06:30 03/10/17 06:29 02/13/17 12:54 6 UNITS Glucose (Glucose 40% Gel) 15-30 GRAMS 15 GRAMS... UD PRN PO 02/08/17 03:00 03/10/17 02:59 Glucose (Glucose Chew Tab) 4-8 Tablets 4 Tabl... UD PRN PO 02/08/17 03:00 03/10/17 02:59 Dextrose (Dextrose 50% 50ML Syringe) 25-50ML OF 50% DW IV FOR... UD PRN IV 02/08/17 03:00 03/10/17 02:59 Glucagon (Glucagon Inj) 1 mg UD PRN SQ 02/08/17 03:00 03/10/17 02:59 Miscellaneous Information (Consult Glycemic Management Pharmacy) 1 ea UD PRN N/A 02/08/17 13:12 03/10/17 13:11 Senna (Senokot Tab) 8.6 mg DAILY PRN PO 02/08/17 17:00 03/10/17 16:59 Miscellaneous (Soap Suds Enema) 1 ea DAILY PRN SD 02/09/17 22:45 03/11/17 22:44 Insulin Detemir (Levemir Flexpen/ FlexTouch) 6 unit QAM SC 02/11/17 08:00 03/13/17 07:59 02/13/17 09:05 6 UNIT Insulin Detemir 3 unit 3 unit HS SC 02/11/17 21:00 03/13/17 20:59 02/12/17 21:21 3 UNIT Acetaminophen/ Empty Bag (Ofirmev Iv/ Empty Iv Bag 100ml) 65 ml @ 260 mls/hr Q6H PRN IV 02/11/17 21:15 03/13/17 21:14 02/13/17 00:14 260 MLS/HR Senna/Docusate Sodium (Senokot S Tab) 1 tab DAILY PRN PO 02/13/17 08:00 03/15/17 07:59 Fentanyl (Duragesic Patch) 50 mcg Q3D@2000 TD 02/12/17 20:00 02/26/17 19:59 02/12/17 21:17 50 MCG Miscellaneous (Fentanyl Patch Remove & Waste) 1 ea Q3D@2000 N/A 02/12/17 20:00 03/14/17 19:59 02/12/17 20:00 1 EA Miscellaneous Information (Check Fentanyl Patch Placement) 1 ea QS N/A 02/13/17 00:00 03/15/17 00:00 02/13/17 17:12 1 EA Tramadol HCl (Ultram Tab) 25 mg Q6H PRN PO 02/13/17 00:30 03/15/17 00:29 Hydromorphone HCl (Dilaudid Inj) 0.5 mg Q6H PRN IV 02/13/17 00:30 02/27/17 00:29 Ondansetron HCl (Zofran Inj) 4 mg Q6H PRN IV 02/13/17 00:30 03/15/17 00:29 Albuterol/ Ipratropium (Duoneb) 3 ml Q2H PRN INH 02/13/17 00:45 03/15/17 00:44 Vancomycin HCl (Vancomycin Oral Soln) 125 mg QID PO 02/13/17 12:00 02/27/17 11:59 02/13/17 17:12 125 MG Raspberry (Raspberry Syrup 5ml Cup) 5 ml QID PO 02/13/17 12:00 02/27/17 11:59 02/13/17 17:12 5 ML Acetaminophen 650 mg 650 mg BID PO 02/13/17 12:00 03/15/17 11:59 02/13/17 12:15 325 MG Sodium Chloride (Nss 1000ml) 1,000 ml @ 60 mls/hr [id number] IV 02/13/17 11:00 02/14/17 03:39 02/13/17 11:50 60 MLS/HR Objective Vital Signs Date Time Temp Pulse Resp B/P Pulse Ox O2 Delivery O2 Flow Rate FiO2 02/13/17 16:30 97 Room Air 02/13/17 16:11 36.5 69 16 104/63 97 Room Air 02/13/17 11:19 36.6 67 16 103/63 97 Room Air 02/13/17 08:30 98 Room Air 02/13/17 07:32 36.6 76 18 96/56 95 Room Air 02/13/17 04:34 36.7 83 20 104/58 94 Room Air 02/13/17 01:09 37.8 02/13/17 00:00 Room Air 02/12/17 23:55 39.0 02/12/17 23:40 38.5 02/12/17 23:24 37.9 02/12/17 23:09 89 19 122/65 92 2.0 02/12/17 22:52 37.2 92 18 128/65 93 Nasal Cannula 2.0 02/12/17 21:38 36.8 84 123/61 02/12/17 20:16 37.4 86 20 112/62 95 Room Air Physical Exam General Appearance: WD/WN, no apparent distress Eyes: normal inspection, sclerae normal ENT: normal ENT inspection, pharynx normal Neck: supple, no adenopathy, trachea midline Respiratory/Chest: lungs clear, normal breath sounds, no respiratory distress Cardiovascular: regular rate, rhythm, no gallop, no murmur Abdomen: normal bowel sounds, non tender, soft, no organomegaly Extremities: non-tender, normal inspection Neurologic/Psychiatric: alert, oriented x 3 Skin: normal color, warm/dry, no rash Lymphatic: no adenopathy Laboratory Results RUN DATE: 02/12/17 [facility] LAB PAGE 1 RUN TIME: 1218 Specimen Inquiry PATIENT: PATRICIA PLASCENCIA [facility] : [id number] AGE/SX: 81/F ROOM: [facility] REG : 02/08/[address]: Jesu Sabillon MD : 1935 BED: 1 DIS : STATUS: ADM IN TLOC: SPEC #: [id number] SKINNY: 02/12/17 STATUS: COMP REQ #: [id number] RECD: 02/12/17-[address]: Jesu Sabillon MD SOURCE: STOOL ENTR: 02/12/17-[address]: Irvin Peterson M.D. SPDESC: Parks,Chicho D. D.O. PalepRivera joaquin MD Patterson, Jennifer., D.O. Repko, Dawn M.D. Wolfe, David W., M.D. ORDERED: CDIFF TOXIN B COMMENTS: Has Specimen Been Obtained/Collected? Y Procedure Result Verified Site CDIFF TOXIN B GENE*(2 YR OR >) Final 02/12/17-1218 Positive for C. difficile toxin B gene RESULTS WERE ALSO CALLED TO [facility] INFECTION CONTROL ANSWERING MACHINE ON 02/12/17 BY FORREST. Last 24 Hours Test 02/12/17 20:12 02/12/17 23:24 02/13/17 01:05 02/13/17 05:45 Bedside Glucose 244 mg/dl Activated Partial Thromboplast Time 28.4 SECONDS Partial Thromboplastin Ratio 1.1 Sodium Level 139 mmol/L 139 mmol/L Potassium Level 4.5 mmol/L 4.7 mmol/L Chloride Level 107 mmol/L 109 mmol/L Carbon Dioxide Level 26 mmol/L 26 mmol/L Anion Gap 6.0 mmol/L 4.0 mmol/L Blood Urea Nitrogen 21 mg/dl 20 mg/dl Creatinine 1.70 mg/dl 1.70 mg/dl Est Creatinine Clear Calc Drug Dose 22.9 ml/min 22.7 ml/min Estimated GFR () 32.2 32.2 Estimated GFR (Non- 27.8 27.8 BUN/Creatinine Ratio 12.2 12.0 Random Glucose 107 mg/dl 84 mg/dl Calcium Level 7.6 mg/dl 7.2 mg/dl Magnesium Level 2.2 mg/dl Total Bilirubin 0.3 mg/dl Direct Bilirubin 0.2 mg/dl Aspartate Amino Transf (AST/SGOT) 30 U/L Alanine Aminotransferase (ALT/SGPT) 34 U/L Alkaline Phosphatase 215 U/L Troponin I < 0.015 ng/ml < 0.015 ng/ml Total Protein 6.0 gm/dl Albumin 1.9 gm/dl Lipase 39 U/L Urine Color YELLOW Urine Appearance CLOUDY Urine pH 5.5 Urine Specific [place] 1.015 Urine Protein 1+ Urine Glucose (UA) NEG Urine Ketones NEG Urine Occult Blood 3+ Urine Nitrite NEG Urine Bilirubin NEG Urine Urobilinogen NEG Urine Leukocyte Esterase SMALL Urine WBC (Auto) 10-30 /hpf Urine RBC (Auto) >30 /hpf Urine Hyaline Casts (Auto) 1-5 /lpf Urine Epithelial Cells (Auto) >30 /lpf Urine Bacteria (Auto) 1+ Urine Renal Epithelial Cells /lpf Urine Yeast (Auto) BUD W/ HYPHAE White Blood Count 13.47 K/uL Red Blood Count 3.20 M/uL Hemoglobin 9.0 g/dL Hematocrit 29.3 % Mean Corpuscular Volume 91.6 fL Mean Corpuscular Hemoglobin 28.1 pg Mean Corpuscular Hemoglobin Concent 30.7 g/dl Platelet Count 207 K/uL Mean Platelet Volume 9.8 fL Neutrophils (%) (Auto) 88.3 % Lymphocytes (%) (Auto) 3.6 % Monocytes (%) (Auto) 7.2 % Eosinophils (%) (Auto) 0.4 % Basophils (%) (Auto) 0.1 % Neutrophils # (Auto) 11.89 K/uL Lymphocytes # (Auto) 0.49 K/uL Monocytes # (Auto) 0.97 K/uL Eosinophils # (Auto) 0.05 K/uL Basophils # (Auto) 0.02 K/uL RDW Standard Deviation 53.8 fL RDW Coefficient of Variation 16.0 % Immature Granulocyte % (Auto) 0.4 % Immature Granulocyte # (Auto) 0.05 K/uL Test 02/13/17 07:13 02/13/17 11:12 02/13/17 16:51 Bedside Glucose 125 mg/dl 237 mg/dl 236 mg/dl Assessment and Plan 81-year-old female with known metastatic renal cell carcinoma, now with persistent intermittent fever. The fact that symptoms resolved almost completely between episodes without evidence of progressive infection on exam or studies, make to tumor-associated fever much more likely. However, now with C. diff colitis which likely explains leukocytosis. Patient on vancomycin, have suggested addition of naproxen for "tumor fever".
[2017-02-14] MEDS: CHECK FENTANYL PATCH PLACEMENT SCH ×4 (00:52→23:36)
[2017-02-14 04:21] VITALS: BP 152/80; PULSE 73; TEMP 36.6; O2SAT 96
[2017-02-14] MEDS: LEVOTHYROXINE 100 MCG TAB PO SCH (05:46)
[2017-02-14 06:06] VITALS: BMI 30.6
[2017-02-14 06:28] LABS: BASO % 0.2 %; BASO ABS # 0.02 K/uL (0-0.2); COMPLETE YES; EOS % 2.7 %; HEMATOCRIT 29.4 % (37-47); IG% 0.8 %; LYMPH ABS # 0.93 K/uL (1.2-3.4); MEAN CELL VOLUME 92.2 fL (80-100); MEAN CORPUSCULAR HEMOGLOBIN 28.2 pg (25-34); MEAN CORPUSCULAR HGB CONC 30.6 g/dl (32-36); MEAN PLATELET VOLUME 10.3 fL (7.4-10.4); MONO % 10.8 %; NEUT % 74.5 %; PLATELET COUNT 200 K/uL (130-400); RED BLOOD COUNT 3.19 M/uL (4.2-5.4); WHITE BLOOD COUNT 8.44 K/uL (4.8-10.8)
[2017-02-14 06:58] LABS: BUN/CREATININE RATIO 13.3 (10-20); CREATININE 1.9 mg/dl (0.60-1.20)
[2017-02-14 07:26] VITALS: BP 122/68; PULSE 71; TEMP 36.5; O2SAT 97
[2017-02-14] MEDS: RASPBERRY SYRUP 5 ML UDP PO SCH ×4 (08:06→20:54)
[2017-02-14] MEDS: CALCIUM 600MG + VIT D 400 IU TAB PO SCH (08:06)
[2017-02-14] MEDS: CYANOCOBALAMIN 500 MCG TAB (VIT B-12) PO SCH (08:06)
[2017-02-14] MEDS: VANCOMYCIN HCL 125 MG/2.5ML SOLN PO SCH ×4 (08:06→20:54)
[2017-02-14] MEDS: HEPARIN SOD 5000 UNIT/0.5 ML CARP SQ SCH ×2 (08:07→20:48)
[2017-02-14] MEDS: ACETAMINOPHEN 325 MG TAB PO SCH ×2 (08:07→20:55)
[2017-02-14] MEDS: INSULIN ASPART 100 UNITS/ML 3 ML PEN SC SCH ×4 (09:25→21:05)
[2017-02-14] MEDS: INSULIN DETEMIR FLEXPEN/FLEX TOUCH 100 UNITS/ML 3ML SC SCH (09:26)
[2017-02-14 11:30] VITALS: BP 126/66; PULSE 76; TEMP 36.7; O2SAT 96
--- NOTE | 2017-02-14 14:25 | Pharmacy Progress Note ---
Glycemic Control: Progress Nt Date of Service February 14, 2017. Scope Glycemic Pharmacist consulted for glycemic control and to write orders per [facility] inpatient glycemic control protocol. Objective Accuchecks BSG (last 24hrs): Test 02/13/17 16:51 02/13/17 20:01 02/14/17 05:42 02/14/17 07:25 Bedside Glucose 236 mg/dl (70-90) 162 mg/dl (70-90) 174 mg/dl (70-90) Random Glucose 162 mg/dl (70-99) Test 02/14/17 11:50 Bedside Glucose 292 mg/dl (70-90) Laboratory Data (last 24hrs) Test 02/14/17 05:42 Anion Gap 5.0 mmol/L BUN/Creatinine Ratio 13.3 Blood Urea Nitrogen 25 mg/dl Creatinine 1.90 mg/dl Potassium Level 5.0 mmol/L Sodium Level 140 mmol/L White Blood Count 8.44 K/uL Red Blood Count 3.19 M/uL Hemoglobin 9.0 g/dL Hematocrit 29.4 % Mean Corpuscular Volume 92.2 fL Mean Corpuscular Hemoglobin 28.2 pg Mean Corpuscular Hemoglobin Concent 30.6 g/dl Platelet Count 200 K/uL Mean Platelet Volume 10.3 fL Neutrophils (%) (Auto) 74.5 % Lymphocytes (%) (Auto) 11.0 % Monocytes (%) (Auto) 10.8 % Eosinophils (%) (Auto) 2.7 % Basophils (%) (Auto) 0.2 % Neutrophils # (Auto) 6.28 K/uL Lymphocytes # (Auto) 0.93 K/uL Monocytes # (Auto) 0.91 K/uL Eosinophils # (Auto) 0.23 K/uL Basophils # (Auto) 0.02 K/uL HbA1c: Test 02/07/17 22:04 Hemoglobin A1c 8.1 % (4.5-5.6) H Recent Pertinent Medications Outpatient Anti-diabetic Regimen: * Levemir 6 units SC qAM and 3 units qPM * A1c = 8.1 % on 02/07/17 The patient is currently receiving: * Basal insulin: Levemir 6 units SC qAM and 3 units qPM (home dose) * Correctional Insulin: Novolog Correction per scale ACHS Goal Range: Low 140 mg/dL - High 180 mg/dL Correction Factor: 25 mg/dL/unit * Prandial insulin: Per carb ratio of 1 unit per 9 grams CHO consumed Risk Factors for Insulin Resistance: * Infection: C. diff - on vancomycin po * Diet: Regular Assessment & Plan ASSESSMENT: * ADA & AACE recommend a goal blood sugar range 140-180 mg/dl for the majority of critically ill & non-critically ill patients. However, more stringent targets may be selected in individual cases. 02/14/17 * AM fasting BSG elevated to 174 mg/dL. Will very slightly increase PM Levemir. * BSG's ranging 162-292 mg/dL over the last 24 hours. * Patient not at high risk for hypoglycemia with A1c of 8.1% and no recent hypoglycemia noted. BSG's persistently elevated - will decrease goal range significantly PLAN FOR INPATIENT GLYCEMIC CONTROL: * Increase basal insulin with LEVEMIR 6 units SQ qAM and 4 units qPM * Correctional Insulin with NOVOLOG per scale ACHS or Q6hrs while NPO * Decrease Goal Range: Low 110 mg/dL - High 140 mg/dL * Correction Factor: 25 mg/dL/unit * Nutritional / Prandial insulin per carb ratio of 1 unit per 9 grams CHO consumed * Please note that the plan above was derived based on current level of insulin resistance and hospital stress. These recommendations are appropriate for inpatient admission only. Plan of care upon discharge will need to be reassessed to avoid potential outpatient hypo/hyperglycemia. Thank you.
--- NOTE | 2017-02-14 14:32 | ONCOLOGY CONSULTATION ---
DATE OF CONSULTATION: 02/14/2017 DATE OF CONSULTATION: 02/14/2017. I met with Ms. Malagon in her hospital room at noon today. Her daughter and son were present. I have reviewed her hospitalization and her problem with episodic fevers and chills. She has been afebrile since 1:00 a.m. on 02/13/2017. She has received treatment for an Escherichia coli urinary tract infection. She did test positive 2 days ago for C. difficile toxin. She is currently receiving oral vancomycin. While I highly doubt that her intermittent fevers and chills are due to a tumor fever that is always in the differential diagnosis. I would recommend treating her with Tylenol 650 mg every 4 hours while awake to see if that will blunt her fevers. If she remains afebrile and is strong enough to return home I would hope that she could be discharged within the next day or two. She has very strong family support at home. I will then follow her as an outpatient. FIDEL
[2017-02-14 15:02] VITALS: BP 120/63; PULSE 82; TEMP 36.5; O2SAT 97
[2017-02-14 19:51] VITALS: BP 120/62; PULSE 82; TEMP 36.6; O2SAT 98
[2017-02-14] MEDS ORDERED: INSULIN DETEMIR FLEXPEN/FLEX TOUCH 100 UNITS/ML 3ML SC SCH (21:00)
--- NOTE | 2017-02-14 22:20 | Progress Note ---
Internal Med Progress Note Date of Service: February 14, 2017. Provider Documentation: SUBJECTIVE: feels much better today no nausea or abdominal pain , still feeling weak and tired no fever for past 24 hrs OBJECTIVE: Vital Signs-as noted below Exam: General-elderly female , very pleasant , no sign of distress Lungs-CTA Heart-regular S1/s2 Abdomen-soft, non tender Extremities-no rash or deformity Neuro-AAo x3, no focal neurological deformity Lab data as noted below. ASSESSMENT & PLAN: ASSESSMENT AND PLAN: This is an 81-year-old female with history of Metastatic Renal Cell CA, 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 Recurrent Fever, likely from from Underlying Malignancy C diff colitis - has been treated for E coli since admission but still having intermittent fevers - repeat panculture obtained-negative growth stool C diff _ ve - ID consulted, recommend to d/c all antibiotics except for Vanco PO fever also felt to be from underlying metastatic Cancer, pt started on schedule dose of Tylenol has been afebrile for past 24 hrs feels much better clinically Abdominal pain and fever, likely Multifactorial - - referred pain from R Iliac bone lesion?-pain adequately controlled Fentanyl lowered to 50mcg will be discharged home with above regimen -pt is asked to take stool softener to prevent constipation - UTI, E coli initial urine culture E coli pansensitive and blood cultures negative was on Zosyn then changed to Cefepime then Ceftriaxone received total of 4 days of antibiotics d/c antibiotics per Dr. Conner and ID for C diff colitis - PIERCE on CKD 3 -Cr improved to approx baseline will DC IVF Metastatic Renal cancer with skeletal metastasis and liver metastasis and also pathological fractures - follow up with Dr Conner will have continued out opt follow up History of diabetes. - continue home Insulin dose History of chronic diastolic congestive heart failure with a grade 1 diastolic dysfunction - on Lasix as needed. euvolemic History of hypothyroidism, continue Synthroid. Gastroesophageal reflux disease, continue Protonix. DVT PROPHYLAXIS SCDs and heparin ordered DISPOSITION anticipate d/c home with home health svc patient lives with her daughters Vital Signs: Date Time Temp Pulse Resp B/P Pulse Ox O2 Delivery O2 Flow Rate FiO2 02/15/17 15:27 100 02/15/17 14:55 36.3 75 18 147/74 100 Room Air 02/15/17 11:30 36.8 78 16 139/64 96 Room Air 02/15/17 08:00 Room Air 02/15/17 07:44 36.4 73 18 128/72 98 Room Air 02/15/17 04:22 36.4 74 16 145/76 100 Room Air 02/15/17 00:00 Room Air 02/14/17 23:52 36.5 80 16 118/65 98 Room Air Lab Results: Results Past 24 Hours Test 02/15/17 05:28 02/15/17 08:00 02/15/17 11:28 Range/Units White Blood Count 9.05 4.8-10.8 K/uL Red Blood Count 3.21 4.2-5.4 M/uL Hemoglobin 9.3 12.0-16.0 g/dL Hematocrit 29.2 37-47 % Mean Corpuscular Volume 91.0 80-100 fL Mean Corpuscular Hemoglobin 29.0 25-34 pg Mean Corpuscular Hemoglobin Concent 31.8 32-36 g/dl Platelet Count 224 130-400 K/uL Mean Platelet Volume 10.2 7.4-10.4 fL Neutrophils (%) (Auto) 73.9 % Lymphocytes (%) (Auto) 11.8 % Monocytes (%) (Auto) 9.5 % Eosinophils (%) (Auto) 2.8 % Basophils (%) (Auto) 0.3 % Neutrophils # (Auto) 6.69 1.4-6.5 K/uL Lymphocytes # (Auto) 1.07 1.2-3.4 K/uL Monocytes # (Auto) 0.86 0.11-0.59 K/uL Eosinophils # (Auto) 0.25 0-0.5 K/uL Basophils # (Auto) 0.03 0-0.2 K/uL RDW Standard Deviation 55.1 36.4-46.3 fL RDW Coefficient of Variation 16.4 11.5-14.5 % Immature Granulocyte % (Auto) 1.7 % Immature Granulocyte # (Auto) 0.15 0.00-0.02 K/uL Sodium Level 141 136-145 mmol/L Potassium Level 4.3 3.5-5.1 mmol/L Chloride Level 111 98-107 mmol/L Carbon Dioxide Level 23 21-32 mmol/L Anion Gap 7.0 3-11 mmol/L Blood Urea Nitrogen 23 7-18 mg/dl Creatinine 1.50 0.60-1.20 mg/dl Est Creatinine Clear Calc Drug Dose 25.9 ml/min Estimated GFR () 37.5 Estimated GFR (Non- 32.3 BUN/Creatinine Ratio 15.5 10-20 Random Glucose 166 70-99 mg/dl Calcium Level 7.2 8.5-10.1 mg/dl Bedside Glucose 152 175 70-90 mg/dl
[2017-02-14 23:52] VITALS: BP 118/65; PULSE 80; TEMP 36.5; O2SAT 98
[2017-02-15] MEDS: HYDROCODONE/ACETAMINOPHEN 7.5/325MG TAB PO PRN (04:21)
[2017-02-15 04:22] VITALS: BP 145/76; PULSE 74; TEMP 36.4; O2SAT 100
[2017-02-15 05:41] LABS: BASO % 0.3 %; BASO ABS # 0.03 K/uL (0-0.2); COMPLETE YES; EOS % 2.8 %; HEMATOCRIT 29.2 % (37-47); IG% 1.7 %; LYMPH % 11.8 %; LYMPH ABS # 1.07 K/uL (1.2-3.4); MEAN CORPUSCULAR HGB CONC 31.8 g/dl (32-36); MEAN PLATELET VOLUME 10.2 fL (7.4-10.4); MONO % 9.5 %; NEUT % 73.9 %; PLATELET COUNT 224 K/uL (130-400); RED BLOOD COUNT 3.21 M/uL (4.2-5.4); WHITE BLOOD COUNT 9.05 K/uL (4.8-10.8)
[2017-02-15 06:11] LABS: BUN/CREATININE RATIO 15.5 (10-20); CALCIUM 7.2 mg/dl (8.5-10.1); CREATININE 1.5 mg/dl (0.60-1.20); POTASSIUM 4.3 mmol/L (3.5-5.1)
[2017-02-15 06:13] VITALS: Ht 152.4 cm; Wt 67.0 kg
[2017-02-15] MEDS: LEVOTHYROXINE 100 MCG TAB PO SCH (06:14)
[2017-02-15 07:44] VITALS: BP 128/72; PULSE 73; TEMP 36.4; O2SAT 98
[2017-02-15] MEDS: CYANOCOBALAMIN 500 MCG TAB (VIT B-12) PO SCH (08:00)
[2017-02-15] MEDS: CHECK FENTANYL PATCH PLACEMENT SCH ×2 (08:00→16:22)
[2017-02-15] MEDS: CALCIUM 600MG + VIT D 400 IU TAB PO SCH (08:49)
[2017-02-15] MEDS: ACETAMINOPHEN 325 MG TAB PO SCH (08:49)
[2017-02-15] MEDS: RASPBERRY SYRUP 5 ML UDP PO SCH ×3 (08:56→15:37)
[2017-02-15] MEDS: VANCOMYCIN HCL 125 MG/2.5ML SOLN PO SCH ×3 (08:56→15:37)
[2017-02-15] MEDS: HEPARIN SOD 5000 UNIT/0.5 ML CARP SQ SCH (08:57)
[2017-02-15] MEDS: INSULIN ASPART 100 UNITS/ML 3 ML PEN SC SCH ×2 (08:59→13:16)
[2017-02-15] MEDS: INSULIN DETEMIR FLEXPEN/FLEX TOUCH 100 UNITS/ML 3ML SC SCH (09:00)
[2017-02-15] MEDS ORDERED: VNCS125 PO (09:35)
[2017-02-15 11:30] VITALS: BP 139/64; PULSE 78; TEMP 36.8; O2SAT 96
--- NOTE | 2017-02-15 14:16 | Discharge Instructions ---
Discharge Instructions Date of Service February 15, 2017. Admission Reason for Admission: Fever, Uti Discharge Discharge Diagnosis / Problem: FEVER /C DIFF COLITIS Discharge Goals Goal(s): Improve disease control, Diagnostic testing Activity Recommendations Activity Limitations: as noted below ( TOLERATED ) . Instructions / Follow-Up Instructions / Follow-Up HOSPITAL FOLLOW UP WITH FAMILY PHYSICIAN IN A WEEK , PLEASE CALL OFFICE FOR APPOINTMENT LAB WORK : BASIC METABOLIC PANEL ON Saturday02/18/17 CONTINUE TO TAKE NORCO TWICE DAILY -HAS TYLENOL 325 MG /CAN TAKE ADDITIONAL TYLENOL 500 MG IN MID DAY TO PREVENT RECURRENCE OF FEVER DO NOT TAKE TYLENOL MORE THAN 3000 MG DAILY -CAN CAUSE DAMAGE TO YOUR LIVER PLEASE WASH YOUR HAND WITH SOAP AND WATER EVERY TIME AFTER USING REST ROOM AND BEFORE EATING TAKE PRO BIOTICS /LACTINEX FOR AT LEAST 2 WEEKS TO REPLENISH GOOD /HEALTHY BACTERIA IN YOUR COLON CAN TAKE THREE TIMES DAILY WITH MEALS PLEASE REVIEW YOUR NEW MEDICATION LIST AND FOLLOW INSTRUCTIONS CAREFULLY. CALL PRIMARY CARE PHYSICIAN OR RETURN TO ER IMMEDIATELY IF WITH RECURRENCE OF SYMPTOMS, INCREASING PAIN, FEVER/CHILLS, DIARRHEA, NAUSEA/VOMITING, CHANGES WITH URINATION. FOLLOW UP WITH DR. LEZAMA AND DR. MCCALL SCHEDULED. Current Hospital Diet Patient's current hospital diet: Regular Diet Discharge Diet Recommended Diet: Regular Diet Pending Studies Studies pending at discharge: yes (BASIC MATABOLIC PANEL ON 02/18/17Saturday ) List of pending studies: BASIC METABOLIC PANEL ON Saturday02/18/17 Laboratory Results Hemoglobin A1c Test 02/07/17 22:04 Range/Units Estimated Average Glucose 186 mg/dl Hemoglobin A1c 8.1 H 4.5-5.6 % Medical Emergencies . Who to Call and When: Medical Emergencies: If at any time you feel your situation is an emergency, please call 911 immediately. . Non-Emergent Contact Non-Emergency issues call your: Primary Care Provider Call Non-Emergent contact if: you have a fever . . "Provider Documentation" section prepared by Ainsley Rincon. . VTE Core Measure Inpt VTE Proph given/why not?: Unfractionated heparin SQ, SCD's [place] Drug Monitoring Program Search Results: no issues identified
--- NOTE | 2017-02-15 14:36 | Discharge Summary ---
Discharge Summary Date of Service February 15, 2017. Discharge Summary Admission Date: February 08, 2017 at 00:50 Discharge Date: February 15, 2017 Discharge Disposition: Home with services Principal Diagnosis: FEVER /C DIFF COLITIS Procedures: CT OF THE ABDOMEN AND PELVIS WITH CONTRAST CLINICAL HISTORY: Abdominal pain and fever. Metastatic renal cell carcinoma. COMPARISON STUDY: CT of the abdomen and pelvis December 04, 2016. TECHNIQUE: Following IV administration of 70 mL of Optiray-320, axial images of the abdomen and pelvis were obtained from the lung bases to the proximal femurs. Images were reviewed in the axial, sagittal, and coronal planes. IV contrast was administered without complication. CT DOSE: 448.10 mGy.cm FINDINGS: A 2 cm left lower lobe lesion has increased in size since CT of December 04, 2016 when it measured 1.5 cm. There is no pneumatosis, free air or portal venous gas. A common bile duct stent is in place. Pneumobilia is again noted. Moderate biliary ductal dilatation has slightly increased since exam of December 04, 2016. There are gallstones within the gallbladder. Innumerable liver metastases are similar to prior exam. An index lateral segment lesion measures 5 cm. An IVC filter is in place. There is no evidence for a bowel obstruction. There is no pneumatosis, free air or portal venous gas. Multiple pancreatic lesions are similar to prior exam. The left kidney is surgically absent. The right kidney is unremarkable. A expansile destructive lesion involving the right iliac bone and right sacrum is unchanged with associated pathologic fracture. Expansile mass involving the left lower anterior chest wall is again noted. This is similar to prior exam. There may be associated pathologic fracture. IMPRESSION: 1. Slight increase in size of a 2 cm left lower lobe metastasis. 2. No change in innumerable liver metastases and pancreatic masses since CT of December 04, 2016. 3. Common bile duct stent in place with pneumobilia. Mild increase in biliary ductal dilatation since exam of December 04, 2016. 4. Cholelithiasis. 5. No bowel obstruction. 6. No significant change in multiple skeletal metastases with associated pathologic fractures, as described above. LEFT SHOULDER MIN 2 VIEWS ROUTINE CLINICAL HISTORY: Fx left proximal humerus fx trauma COMPARISON: None DISCUSSION: Slightly impacted fracture left humeral neck. No evidence of dislocation. Degenerative change acromioclavicular joint. There is no evidence for soft tissue swelling. Expansile lesion involving the left second and possibly third rib with potential of pleural component. This is been described previously. IMPRESSION: Fracture left humeral neck. Metastatic disease upper chest which is been described previously. Degenerative change left acromioclavicular joint. ABDOMINAL ULTRASOUND, RIGHT UPPER QUADRANT HISTORY: Fever. Right upper Quadrant abdominal pain. R/O CHOLECYSTITIS. COMPARISON: Abdominal ultrasound 05/31/2015. Abdomen and pelvis CT 02/07/2017. FINDINGS: Pancreas: Obscured by overlying bowel gas. Liver: Mildly enlarged measuring 20 cm in length. Multiple hepatic masses measuring up to 3.5 cm. There is suggestion of pneumobilia. Gallbladder: Multiple stones completely filling the gallbladder resulting in diffuse shadowing and suboptimal evaluation. Gallbladder wall is is normal in thickness measuring up to 2.5 mm. No pericholecystic fluid. CBD: A common bile duct stent is visualized. Right kidney: No hydronephrosis. IMPRESSION: 1. Multiple hepatic masses again noted consistent with metastatic disease. 2. A common bile duct stent is identified. No intrahepatic bile duct dilatation. 3. The gallbladder is completely filled with stones. No definite gallbladder wall thickening. KUB HISTORY: Fever. Ileus. r/o obstruction, ileus COMPARISON: KUB 01/16/2012. Abdomen and pelvis CT 02/07/2017. FINDINGS: Gas-filled nondistended colon. There are few gas-filled nondistended loops of small bowel. No evidence for bowel obstruction. There is a metallic common bile duct stent and an IVC filter which are unchanged in position. Surgical clips within the left side the abdomen. Pathologic fracture within the right iliac bone is again noted. No renal calculi. No ureteral calculi. No pneumoperitoneum or pneumatosis. IMPRESSION: Multiple gas-filled loops of large and small bowel which are not significantly distended. No evidence for bowel obstruction. Consultations: General Surgery Dr. Parks Medication Reconciliation New Medications: Fentanyl (Duragesic) 75 Mcg Tdsy 75 MCG TD Q3D@0900 for 15 Days, #5 PATCH 0 Refills Polyethylene (Miralax) 17 Gm Pow 17 GM PO DAILY PRN for Constipation for 30 Days, #15 PKT 2 Refills Vancomycin HCl (Vancomycin HCl) 125 Mg/2.5 Ml Susp 125 MG PO QID for 7 Days, #70 ML Continued Medications: Calcium/Vitamin D (Caltrate 600 Plus *) Tab 1 TAB PO DAILY, 0 Refills CHEWS Cyanocobalamin (Vitamin B12 500MCG) 500 Mcg Tab 1000 MCG PO DAILY, TAB Denosumab (Xgeva) 120 Mg/1.7 Ml Inj 1 DOSE SC MONTHLY Furosemide (Lasix) 20 Mg Tab 20 MG PO DAILY PRN for EDEMA, #10 TAB Hydrocodone/Acetaminophen 7.5MG/325MG ([place] 7.5MG/325MG) Tab 1-2 TAB PO Q4 PRN for Pain, TAB PRN PAIN Insulin Detemir (Levemir Flextouch) 100 Unit/Ml Inj 6 UNITS SQ QAM Insulin Detemir (Levemir Flextouch) 100 Unit/Ml Inj 3 UNITS SQ QPM Levothyroxine Sodium (Synthroid) 100 Mcg Tab 100 MCG PO DAILY, TAB Ondansetron Tab (Zofran) 8 Mg Tab 8 MG PO Q8 PRN for Nausea, TAB Pantoprazole (Protonix) 40 Mg Tab 40 MG PO DAILY, #30 TAB Senna (Senokot) 8.6 Mg Tab 1 TAB PO DAILY PRN for Constipation, 0 Refills [Opdiva] () 1 DOSE IV. [id number] Discontinued Medications: Fentanyl (Duragesic *) 50 Mcg Tdsy 50 MCG TD [id number], 0 Refills Lisinopril (Lisinopril) 10 Mg Tab 20 MG PO DAILY, #60 Admission Information HPI (per Admitting provider): DATE OF ADMISSION: 02/08/2017 CHIEF COMPLAINT: Abdominal pain and fever. HISTORY OF PRESENT ILLNESS: This 81-year-old female with past medical history significant for metastatic renal cancer with liver metastasis and bone metastasis, hypothyroidism, hypertension and GERD, presents with right-sided abdominal pain, severe in nature, and she says the pain is more when she stands up and also was running temperature at home. So she was brought in here, she has a temp spike of 39.4 in the ER, pain is better controlled with pain medication now. Denies any headaches, no blurred vision, no dizziness, no cough, no nausea, no vomiting, no diarrhea, no hematuria, no burning micturition. Appetite is not that great. Lives with her family. Ambulation not that great. Currently resting comfortably and hemodynamically stable. Physical Exam (per Admitting): GENERAL: The patient is old and frail, not in distress. VITAL SIGNS: T-max 39.4, pulse 83, respiratory rate 14, blood pressure 129/62, oxygen 97% on room air. HEENT: No pallor, no icterus. Pupils equal, round, and reactive to light. NECK: No JVD, no neck masses, no carotid bruits. CARDIOVASCULAR: S1, S2 heard, regular rate and rhythm, no murmur, no gallop. RESPIRATORY: Normal AP diameter. No accessory muscle use. No wheezing, no crackles. ABDOMEN: Soft, bowel sounds present. Mild right lower quadrant tenderness. No guarding, no rigidity, no distention. CENTRAL NERVOUS SYSTEM: Cranial nerves II-XII grossly intact. Nonfocal. EXTREMITIES: Lower extremity edema present. No gross erythema seen. Hospital Course ASSESSMENT AND PLAN: This is an 81-year-old female with history of Metastatic Renal Cell CA, 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 Recurrent Fever, likely from from Underlying Malignancy C diff colitis - has been treated for E coli since admission but still having intermittent fevers - repeat panculture obtained-negative growth stool C diff _ ve - ID consulted, recommend to d/c all antibiotics except for Vanco PO fever also felt to be from underlying metastatic Cancer, pt started on schedule dose of Tylenol has been afebrile for past 24 hrs feels much better clinically Abdominal pain and fever, likely Multifactorial - - referred pain from R Iliac bone lesion?-pain adequately controlled Fentanyl lowered to 50mcg will be discharged home with above regimen -pt is asked to take stool softener to prevent constipation - UTI, E coli initial urine culture E coli pansensitive and blood cultures negative was on Zosyn then changed to Cefepime then Ceftriaxone received total of 4 days of antibiotics d/c antibiotics per Dr. Lezama and ID for C diff colitis - PIERCE on CKD 3 -Cr improved to approx baseline will DC IVF Metastatic Renal cancer with skeletal metastasis and liver metastasis and also pathological fractures - follow up with Dr Lezama will have continued out opt follow up History of diabetes. - continue home Insulin dose History of chronic diastolic congestive heart failure with a grade 1 diastolic dysfunction - on Lasix as needed. euvolemic History of hypothyroidism, continue Synthroid. Gastroesophageal reflux disease, continue Protonix. DVT PROPHYLAXIS SCDs and heparin ordered DISPOSITION discharge home today with home health patient lives with her daughters Total time spent on discharge = 40 MIN This includes examination of the patient, discharge planning, medication reconciliation, and communication with other providers. Discharge Instructions Discharge Instructions Date of Service February 15, 2017. Admission Reason for Admission: Fever, Uti Discharge Discharge Diagnosis / Problem: FEVER /C DIFF COLITIS Discharge Goals Goal(s): Improve disease control, Diagnostic testing Activity Recommendations Activity Limitations: as noted below ( TOLERATED ) . Instructions / Follow-Up Instructions / Follow-Up HOSPITAL FOLLOW UP WITH FAMILY PHYSICIAN IN A WEEK , PLEASE CALL OFFICE FOR APPOINTMENT LAB WORK : BASIC METABOLIC PANEL ON Saturday02/18/17 CONTINUE TO TAKE NORCO TWICE DAILY -HAS TYLENOL 325 MG /CAN TAKE ADDITIONAL TYLENOL 500 MG IN MID DAY TO PREVENT RECURRENCE OF FEVER DO NOT TAKE TYLENOL MORE THAN 3000 MG DAILY -CAN CAUSE DAMAGE TO YOUR LIVER PLEASE WASH YOUR HAND WITH SOAP AND WATER EVERY TIME AFTER USING REST ROOM AND BEFORE EATING TAKE PRO BIOTICS /LACTINEX FOR AT LEAST 2 WEEKS TO REPLENISH GOOD /HEALTHY BACTERIA IN YOUR COLON CAN TAKE THREE TIMES DAILY WITH MEALS PLEASE REVIEW YOUR NEW MEDICATION LIST AND FOLLOW INSTRUCTIONS CAREFULLY. CALL PRIMARY CARE PHYSICIAN OR RETURN TO ER IMMEDIATELY IF WITH RECURRENCE OF SYMPTOMS, INCREASING PAIN, FEVER/CHILLS, DIARRHEA, NAUSEA/VOMITING, CHANGES WITH URINATION. FOLLOW UP WITH DR. LEZAMA AND DR. MCCALL SCHEDULED. Current Hospital Diet Patient's current hospital diet: Regular Diet Discharge Diet Recommended Diet: Regular Diet Pending Studies Studies pending at discharge: yes (BASIC MATABOLIC PANEL ON 02/18/17Saturday ) List of pending studies: BASIC METABOLIC PANEL ON Saturday02/18/17 Laboratory Results Hemoglobin A1c Test 02/07/17 22:04 Range/Units Estimated Average Glucose 186 mg/dl Hemoglobin A1c 8.1 H 4.5-5.6 % Medical Emergencies . Who to Call and When: Medical Emergencies: If at any time you feel your situation is an emergency, please call 911 immediately. . Non-Emergent Contact Non-Emergency issues call your: Primary Care Provider Call Non-Emergent contact if: you have a fever . . "Provider Documentation" section prepared by Ainsley Rincon. . VTE Core Measure Inpt VTE Proph given/why not?: Unfractionated heparin SQ, SCD's [place] Drug Monitoring Program Search Results: no issues identified Additional Copies To Juma Lezama M.D.
[2017-02-15 14:55] VITALS: BP 147/74; PULSE 75; TEMP 36.3; O2SAT 100
[2017-02-15] MEDS ORDERED: DRGTP50 TD (14:57)
[2017-02-15 15:27] VITALS: BP 158/66; O2SAT 100
[2017-03-27] MEDS ORDERED: ERGO500011 PO (16:28)
== END 2017-02-15 16:24 | disposition home health service (06) | DRG 690 ==
LOC: ENRESERVTM → ENRESERVDT → C.EDB 21:41 → C.4E 02-08 00:50
PROVIDERS: ADMIT Internal Medicine; ATTEND Hospitalist
DX: N39.0 Urinary tract infection, site not specified (principal); C64.9 Malignant neoplasm of unspecified kidney, except renal pelvis; C79.51 Secondary malignant neoplasm of bone; C78.7 Secondary malignant neoplasm of liver and intrahepatic bile duct; A04.7 Enterocolitis due to Clostridium difficile; I13.0 Hypertensive heart and chronic kidney disease with heart failure and stage 1 through stage 4 chronic kidney disease, or unspecified chronic kidney disease; I50.32 Chronic diastolic (congestive) heart failure; N17.9 Acute kidney failure, unspecified; R50.81 Fever presenting with conditions classified elsewhere; B96.20 Unspecified Escherichia coli [E. coli] as the cause of diseases classified elsewhere; E03.9 Hypothyroidism, unspecified; K21.9 Gastro-esophageal reflux disease without esophagitis; N18.3 Chronic kidney disease, stage 3 (moderate); K59.00 Constipation, unspecified; M79.661 Pain in right lower leg; Z90.5 Acquired absence of kidney; E11.22 Type 2 diabetes mellitus with diabetic chronic kidney disease; Z86.718 Personal history of other venous thrombosis and embolism; Z79.899 Other long term (current) drug therapy; Z91.048 Other nonmedicinal substance allergy status

== ENCOUNTER → 2017-02-18 | Outpatient (CLI) | payer OTHER, MEDICARE ==
[~2017-02-18] MED LIST changes: +ACET325T96 PO; +AMOX1TAB43 PO; -AXIT1TAB PO; +CEFD1CAP14 PO; +ERGO500011 PO; +FNTTP50 TD; +INSU3INJ3 SQ; +KFL250 PO; +LACT10CA3 PO; +LEVO200T6 PO; +LISI-461 PO; +LVMIPEN SQ; +MRLP17X PO; +NIVO4INJ IV; +NYSS5 PO; +ONDA8TAB6 PO; +POLY335019 PO; +RCL25 PO; +VANC1CAP19 PO; +VNCS125 PO; +[UNRECOGNIZED DRUG - OTHER] IV.
[2017-02-18 10:58] LABS: BLOOD UREA NITROGEN 15 mg/dl (7-18); BUN/CREATININE RATIO 10.9 (10-20); CALCIUM 7.8 mg/dl (8.5-10.1); CARBON DIOXIDE 26 mmol/L (21-32); CHLORIDE 106 mmol/L (98-107); GLUCOSE 335 mg/dl (70-99); SODIUM 136 mmol/L (136-145)
[2017-02-18 11:08] LABS: BETA-HYDROXYBUTYRATE 0.55 mg/dL (0.2-2.81)
--- NOTE | 2017-03-08 07:05 | CODING QUERY NO DIAGNOSIS ---
TREATMENT RENDERED WITHOUT A DIAGNOSIS To promote full compliance with coding requirements relating to patient care, physician participation is requested in all cases of social services designee uncertainty. Please assist us with providing a diagnosis/symptom for the test(s) below: A diagnosis/symptom was not documented on your Order. A valid diagnosis/symptom is required to bill all insurances. Please remember that we are unable to code a diagnosis of rule out, probable, possible, questionable, or suspected. Tests that require a diagnosis: ROUTINE VENIPUNCTURE BETA HYDROXYBUTYRATE BASIC METABOLIC PROFILE Provider Signature: Date: Thank you [facility] [employer] Information Management Once completed, please kindly fax back to [phone] For questions please call [phone]
== END | disposition home or self-care (01) ==
LOC: C.LAB 09:22
PROVIDERS: ATTEND Hospitalist
DX: Z01.89 Encounter for other specified special examinations (principal)

== ENCOUNTER 2017-03-21 12:43 | Inpatient (IN) | payer OTHER, MEDICARE ==
[~2017-03-21] VITALS: Ht 152.4 cm; Wt 69.4 kg
[~2017-03-21 12:43] MED LIST changes: -ACET325T96 PO; -AMOX1TAB43 PO; -CEFD1CAP14 PO; -ERGO500011 PO; -FNTTP50 TD; -KFL250 PO; -LACT10CA3 PO; -LEVO200T6 PO; -LISI-461 PO; -NIVO4INJ IV; -NYSS5 PO; -ONDA8TAB6 PO; -POLY335019 PO; -RCL25 PO; -VANC1CAP19 PO
[2017-03-21] MEDS ORDERED: SODIUM CHLORIDE 0.9% 1000ML 1,000 ML IV STA ×2 (12:58→14:21)
--- NOTE | 2017-03-21 13:02 | EMERGENCY ROOM VISIT NOTE ---
History Report prepared by Ruiz: Pat Mei Under the Supervision of: Dr. Mitesh Fajardo M.D. First contact with patient: 12:51 Chief Complaint: HYPOTENSION Stated Complaint: LOW BLOOD PRESSURE, DEHYDRATION, UTI History of Present Illness The patient is a 81 year old female who presents to the Emergency Room with complaints of constant hypotension beginning a few days prior to arrival. Per the patient's family, the patient about a month ago was hospitalized for a UTI and developed C Diff. Since then she has been doing good. A few nights ago the patient spiked a fever with the highest recording being 101.5. She appears to be dehydrated. The patient also has a decreased appetite. Yesterday the at home nurse got a urine sample from the patient and notes a UTI. She denies urinary symptoms or diarrhea. The patient is not on blood thinners. 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 A total of 10 systems reviewed and were otherwise negative. Past Medical & Surgical Medical Problems: (1) Diabetes (2) DVT (deep venous thrombosis) (3) Hypertension (4) Metastatic renal cell carcinoma to bone Family History Patient reports no known family medical history. Social History Smoking Status: Never Smoker Alcohol Use: none Drug Use: none Marital Status: Housing Status: lives with family Occupation Status: retired Current/Historical Medications Scheduled Denosumab (Xgeva), 1 DOSE SC MONTHLY Fentanyl (Fentanyl), 50 MCG TD Q3D@2000 Insulin Detemir (Levemir Flextouch), 6 UNITS SQ QAM Insulin Detemir (Levemir Flextouch), 3 UNITS SQ QPM Lactobacillus-Inulin (Culturelle), 1 CAP PO DAILY Levothyroxine Sodium (Levothyroxine Sodium), 200 MCG PO DAILY Lisinopril (Lisinopril), 10 MG PO DAILY Nivolumab (Opdivo), 1 DOSE IV [id number] Pantoprazole (Protonix), 40 MG PO DAILY [Opdiva], 1 DOSE IV. [id number] Scheduled PRN Acetaminophen Tab (Tylenol), 650 MG PO Q4 PRN for Pain Furosemide (Lasix), 20 MG PO DAILY PRN for EDEMA Hydrocodone/Acetaminophen 7.5MG/325MG ([place] 7.5MG/325MG), 1-2 TAB PO Q4 PRN for Pain Ondansetron Hcl (Zofran), 8 MG PO Q8 PRN for Nausea Polyethylene (Miralax), 17 GM PO DAILY PRN for Constipation Senna (Senokot), 1 TAB PO DAILY PRN for Constipation Allergies Coded Allergies: Adhesives (Verified Allergy, Mild, LOCAL SKIN IRRITATION, BLISTERS, ) Physical Exam Vital Signs Date Time Temp Pulse Resp B/P (MAP) Pulse Ox O2 Delivery O2 Flow Rate FiO2 03/21/17 14:46 97/49 03/21/17 14:43 85 13 98 03/21/17 14:38 86 16 03/21/17 14:33 86 14 99 03/21/17 14:32 96/57 03/21/17 14:28 86 15 100 03/21/17 14:23 87 14 95 03/21/17 14:18 88 16 90 03/21/17 14:16 121/58 03/21/17 14:13 85 16 03/21/17 14:08 86 15 03/21/17 14:03 86 25 03/21/17 14:01 98/53 03/21/17 13:58 84 15 03/21/17 13:53 84 16 98 03/21/17 13:48 86 13 99 03/21/17 13:45 106/50 03/21/17 13:43 88 19 97 03/21/17 13:38 89 14 96/63 100 03/21/17 13:33 90 13 98 03/21/17 13:33 90 13 98 03/21/17 13:28 93 19 99 03/21/17 13:28 93 19 99 03/21/17 13:23 92 11 98 03/21/17 13:23 92 11 98 03/21/17 13:18 91 14 99 03/21/17 13:13 90 12 98 03/21/17 13:10 91 03/21/17 13:02 94/47 03/21/17 12:49 37.1 94 20 85/53 100 Room Air Physical Exam GENERAL: Patient is elderly appearing and in minimal distress. HEENT: No acute trauma, normocephalic atraumatic, mucous membranes dry, no nasal congestion, no scleral icterus. NECK: No stridor, no adenopathy, no meningismus, trachea is midline. LUNGS: No dyspnea. Clear to auscultation and equal bilaterally. No wheeze, no rhonchi. HEART: Regular rate and rhythm. No murmurs, rubs, gallops appreciated. ABDOMEN: Soft, nontender, bowel sounds positive, no masses appreciated, no peritonitis. BACK: No midline tenderness, no CVA tenderness EXTREMITIES: Normal motion all extremities, no cyanosis. 1+ edema bilateral ankles. NEUROLOGIC: Alert and oriented, no acute motor or sensory deficits, no focal weakness, cranial nerves grossly intact. SKIN: No rash, no jaundice, no diaphoresis. Medical Decision & Procedures ER Provider Diagnostic Interpretation: X ray results are stated below per my interpretation and the radiologist's interpretation. CHEST ONE VIEW PORTABLE CLINICAL HISTORY: fever cough COMPARISON STUDY: 02/12/2017 FINDINGS: Mild stable cardiomegaly. Unchanging destructive lesion left pulmonary apex. Diaphragms are smooth. There is a described pathologic fracture humeral neck on the left. IMPRESSION: Chronic change as described. No acute process currently. Electronically signed by: Gordon Marvin M.D. 03/21/2017 1:47 PM Dictated Date/Time: 03/21/2017 1:46 PM Laboratory Results 03/21/17 13:20 Red Blood Count 3.79, Mean Corpuscular Volume 87.9, Mean Corpuscular Hemoglobin 28.8, Mean Corpuscular Hemoglobin Concent 32.7, Mean Platelet Volume 11.2, Neutrophils (%) (Auto) 92.1, Lymphocytes (%) (Auto) 4.2, Monocytes (%) (Auto) 1.7, Eosinophils (%) (Auto) 0.8, Basophils (%) (Auto) 0.0, Neutrophils # (Auto) 9.06, Lymphocytes # (Auto) 0.41, Monocytes # (Auto) 0.17, Eosinophils # (Auto) 0.08, Basophils # (Auto) 0.00 03/21/17 13:20 Test 03/21/17 13:12 03/21/17 13:20 03/21/17 13:38 Urine Color DK YELLOW Urine Appearance TURBID (CLEAR) Urine pH 5.0 (4.5-7.5) Urine Specific [place] 1.033 (1.000-1.030) Urine Protein 1+ (NEG) Urine Glucose (UA) NEG (NEG) Urine Ketones NEG (NEG) Urine Occult Blood 2+ (NEG) Urine Nitrite POS (NEG) Urine Bilirubin NEG (NEG) Urine Urobilinogen NEG (NEG) Urine Leukocyte Esterase MODERATE (NEG) Urine RBC (Auto) /hpf (0-4) Urine Hyaline Casts (Auto) /lpf (0-5) Urine RBC >30 /hpf (0-4) Urine WBC >30 /hpf (0-5) Urine Epithelial Cells 5-10 /lpf (0-5) Urine Bacteria 3+ (NEG) Urine Pathogenic Casts /lpf (0) Urine Yeast (Auto) (NONE PRSENT) White Blood Count 9.84 K/uL (4.8-10.8) Red Blood Count 3.79 M/uL (4.2-5.4) Hemoglobin 10.9 g/dL (12.0-16.0) Hematocrit 33.3 % (37-47) Mean Corpuscular Volume 87.9 fL (80-100) Mean Corpuscular Hemoglobin 28.8 pg (25-34) Mean Corpuscular Hemoglobin Concent 32.7 g/dl (32-36) Platelet Count 159 K/uL (130-400) Mean Platelet Volume 11.2 fL (7.4-10.4) Neutrophils (%) (Auto) 92.1 % Lymphocytes (%) (Auto) 4.2 % Monocytes (%) (Auto) 1.7 % Eosinophils (%) (Auto) 0.8 % Basophils (%) (Auto) 0.0 % Neutrophils # (Auto) 9.06 K/uL (1.4-6.5) Lymphocytes # (Auto) 0.41 K/uL (1.2-3.4) Monocytes # (Auto) 0.17 K/uL (0.11-0.59) Eosinophils # (Auto) 0.08 K/uL (0-0.5) Basophils # (Auto) 0.00 K/uL (0-0.2) RDW Standard Deviation 57.6 fL (36.4-46.3) RDW Coefficient of Variation 17.9 % (11.5-14.5) Immature Granulocyte % (Auto) 1.2 % Immature Granulocyte # (Auto) 0.12 K/uL (0.00-0.02) Anion Gap 13.0 mmol/L (3-11) Est Creatinine Clear Calc Drug Dose 9.2 ml/min Estimated GFR () 11.4 Estimated GFR (Non- 9.9 BUN/Creatinine Ratio 13.7 (10-20) Calcium Level 7.6 mg/dl (8.5-10.1) Magnesium Level 1.8 mg/dl (1.8-2.4) Total Bilirubin 0.5 mg/dl (0.2-1) Direct Bilirubin 0.2 mg/dl (0-0.2) Aspartate Amino Transf (AST/SGOT) 21 U/L (15-37) Alanine Aminotransferase (ALT/SGPT) 13 U/L (12-78) Alkaline Phosphatase 150 U/L (45-117) Troponin I < 0.015 ng/ml (0-0.045) Total Protein 6.9 gm/dl (6.4-8.2) Albumin 2.3 gm/dl (3.4-5.0) Bedside Lactic Acid Venous 2.03 mmol/L (0.90-1.70) Laboratory results as reviewed by me. Medications Administered Medications (Trade) Dose Ordered Sig/Suleiman Route Start Time Stop Time Status Last Admin Dose Admin Sodium Chloride 1,000 ml @ 999 mls/hr Q1H1M STAT IV 03/21/17 12:58 03/21/17 13:58 DC 03/21/17 13:22 999 MLS/HR Cefepime HCl 1000 mg/Dextrose 111.3 ml @ 200 mls/hr NOW STAT IV 03/21/17 14:11 03/21/17 14:44 DC 03/21/17 14:20 200 MLS/HR ECG Indication: other (hypotension ) Rate (beats per minute): 89 Rhythm: normal sinus Findings: no acute ischemic change, no ectopy ED Course 1252: The patient was evaluated in room B10. A complete history and physical exam was performed. 1258: Sodium Chloride 1,000 ml @ 999 mls/hr IV. 1407: The patient is feeling better. Her blood pressure is in the 90s. I discussed need for hospitalization with the patient and her family. They agree to hospitalization. 1411: Cefepime HCl 1,000 mg/ Dextrose 111.3 ml @ 200 mls/hr IV. 1421: Sodium Chloride 1,000 ml @ 125 mls/hr IV. 1424: The patient's blood pressure is 121/58 after 1 liter of fluid. 1425: Discussed the patient's case with Dr. Venancio BOO. The patient will be evaluated for further treatment and disposition. 1430: Upon reevaluation, the patient is hemodynamically stable. Discussed results and treatment plan with the patient. She verbalized understanding and agreement with the treatment plan. The patient will be evaluated for further management. Medical Decision Differential: Sepsis, Infectious (UTI/Pneumonia/Meningitis/etc), Metabolic/ Electrolyte Abnormality, Cardiac, Hepatic, Endocrine, Toxicologic, Neurologic, amongst other pathologies entertained. Medication Reconciliation: I attest that I have personally reviewed the patient 's current medication list. Pleasant 81 yr old female arrives for evaluation of hypotension. She is dehydrated appearing. Immediately given 1 L NSS with sepsis work-up initiated. Straight cath UA clearly consistent with UTI. Recent susceptibilities for pt UTI was Ecoli seo-susceptible. Labs with acute renal failure. WBC OK. Lactic acid mildly elevated. BP much improved with single bolus fluids. Will hold on full 30ml/kg NSS bolus given her rapid response to initial bolus and fact that fluid overload has been major issue for patient in past. She is stable, breathing comfortably and has much better color to face. Discussion with clinical pharmacist and felt that single line broad spectrum ABX Cefepime would be acceptable in this patient at this time. Will bring in to medicine service for further work-up and evaluation. Consults Time Called: 1421 Consulting Physician: Dr. Venancio BOO Returned Call: 1425 Discussed the patient's case with Dr. Venancio BOO. The patient will be evaluated for further treatment and disposition. Impression Primary Impression: Sepsis Additional Impressions: Acute renal failure UTI (urinary tract infection) Scribe Attestation The scribe's documentation has been prepared under my direction and personally reviewed by me in its entirety. I confirm that the note above accurately reflects all work, treatment, procedures, and medical decision making performed by me. Departure Information Dispostion Being Evaluated By Hospitalist Referrals Kamini Dunn M.D. (PCP) Problem Qualifiers
[2017-03-21 13:35] LABS: URINE APPEARANCE TURBID (CLEAR); URINE NITRITE POS (NEG); URINE SPECIFIC GRAVITY 1.033 (1.000-1.030); UROBILINOGEN NEG (NEG); ZZURINE CULT IF INDIC CATH YES
[2017-03-21 13:48] LABS: COMPLETE YES; EOS % 0.8 %; HEMATOCRIT 33.3 % (37-47); IG% 1.2 %; LYMPH % 4.2 %; LYMPH ABS # 0.41 K/uL (1.2-3.4); MEAN CELL VOLUME 87.9 fL (80-100); MEAN CORPUSCULAR HEMOGLOBIN 28.8 pg (25-34); MEAN CORPUSCULAR HGB CONC 32.7 g/dl (32-36); MEAN PLATELET VOLUME 11.2 fL (7.4-10.4); MONO % 1.7 %; NEUT % 92.1 %; PLATELET COUNT 159 K/uL (130-400); RED BLOOD COUNT 3.79 M/uL (4.2-5.4); WHITE BLOOD COUNT 9.84 K/uL (4.8-10.8)
[2017-03-21 13:49] LABS: MANUAL MICROSCOPIC REQUIRED? YES; REVIEW REQ? NO; URINE COLOR DK YELLOW
--- NOTE | 2017-03-21 13:49 | DIAGNOSTIC IMAGING REPORT ---
CHEST ONE VIEW PORTABLE CLINICAL HISTORY: fever cough COMPARISON STUDY: 02/12/2017 FINDINGS: Mild stable cardiomegaly. Unchanging destructive lesion left pulmonary apex. Diaphragms are smooth. There is a described pathologic fracture humeral neck on the left. IMPRESSION: Chronic change as described. No acute process currently. Electronically signed by: Gordon Marvin M.D. 03/21/2017 1:47 PM Dictated Date/Time: 03/21/2017 1:46 PM
[2017-03-21 13:51] LABS: URINE BILIRUBIN NEG (NEG)
[2017-03-21 13:54] LABS: URINE BACTERIA 3+ (NEG); URINE RBC >30 /hpf (0-4); URINE WBC >30 /hpf (0-5)
[2017-03-21] MEDS ORDERED: LEVO200T6 PO (14:02)
[2017-03-21] MEDS ORDERED: LISI-461 PO (14:02)
[2017-03-21] MEDS ORDERED: LACT10CA3 PO (14:02)
[2017-03-21] MEDS ORDERED: ONDA8TAB6 PO (14:02)
[2017-03-21] MEDS ORDERED: NIVO4INJ IV (14:02)
[2017-03-21] MEDS ORDERED: ACET325T96 PO (14:02)
[2017-03-21 14:07] LABS: ALT/SGPT 13 U/L (12-78); BLOOD UREA NITROGEN 55 mg/dl (7-18); BUN/CREATININE RATIO 13.7 (10-20); CALCIUM 7.6 mg/dl (8.5-10.1); CARBON DIOXIDE 22 mmol/L (21-32); CHLORIDE 93 mmol/L (98-107); GLUCOSE 231 mg/dl (70-99); MAGNESIUM 1.8 mg/dl (1.8-2.4); POTASSIUM 4.7 mmol/L (3.5-5.1); SODIUM 128 mmol/L (136-145)
[2017-03-21] MEDS ORDERED: CEFEPIME IV 1,000 MG in DEXTROSE 5% 100ML 100 ML IV STA (14:11)
[2017-03-21 14:13] LABS: ALKALINE PHOSPHATASE 150 U/L (45-117); AST/SGOT 21 U/L (15-37)
[2017-03-21 15:00] VITALS: O2SAT 98; Ht 152.4 cm; Wt 69.4 kg
[2017-03-21] MEDS ORDERED: GLUCOSE 40% GEL 15 GM TUBE PO PRN (15:45)
[2017-03-21] MEDS ORDERED: SENNA 8.6 MG TAB PO PRN (15:45)
[2017-03-21] MEDS ORDERED: ONDANSETRON 8 MG TAB PO PRN (15:45)
[2017-03-21] MEDS ORDERED: GLUCAGON FOR INJ 1 MG VIAL SQ PRN (15:45)
[2017-03-21] MEDS ORDERED: HYDROCODONE/ACETAMINOPHEN 7.5/325MG TAB PO PRN (15:45)
[2017-03-21] MEDS ORDERED: POLYETHYLENE (MIRALAX) 17 GM PACK PO PRN (15:45)
[2017-03-21] MEDS ORDERED: MAGNESIUM HYDROXIDE SUSP 30 ML UDC PO PRN (15:45)
[2017-03-21] MEDS ORDERED: ACETAMINOPHEN 325 MG TAB PO PRN (15:45)
[2017-03-21] MEDS ORDERED: DEXTROSE 50% 50 ML SYR IV PRN (15:45)
[2017-03-21] MEDS ORDERED: ALUMINUM/MAGNESIUM/SIMETH (MAALOX MAX) 30 ML UDC PO PRN (15:45)
[2017-03-21] MEDS ORDERED: GLUCOSE 10 TABS/TUBE PO PRN (15:45)
--- NOTE | 2017-03-21 15:57 | History and Physical ---
History & Physical Date & Time of Service: Mar 21, 2017 at 15:53 Chief Complaint: Low Blood Pressure, Dehydration, Uti Primary Care Physician: Kamini Dunn M.D. History of Present Illness Source: patient, family Ms. Malagon is an 81 y/o female with PMHx of Metastatic Renal Cell Carcinoma S/P L Nephrectomy (1997) on Opdivo, Chronic Kidney Disease Stage III, Grade I Diastolic CHF; T2DM IDDM, HTN, Bilateral Lower Extremity DVTs (2011) S/ P [place] Filter, Hypothyroidism, and GERD who presents to the ED c/o hypotension and suspected UTI x 2 days. Patient was admitted in January for sepsis from pansensitive Escherichia coli UTI and C. difficile. Family at bedside report she made of a full recovery from this. She developed fevers 2 days ago that peaked to 101.5. Family reporting patient has had a decreased appetite and decreased oral intake. They suspect that she is dehydrated. Associated nausea without vomiting. Due to low blood pressures, patient's PCP instructed to stop Lasix and lisinopril. She has not taken these medications for the past 2 days. Baseline BPs 150/60s. Family has been utilizing Tylenol every 4 hours for fever. Home nursing took a sample of urine and noted a UTI but no antibiotics were started as an outpatient. Patient denies chills, chest pain, shortness of breath, vomiting, abdominal pain, dysuria, frequency, or diarrhea. She was diagnosed with renal cell carcinoma in 1997 and underwent left nephrectomy. In 2007, discovery of lung mass however unable to biopsy site. In 2010, bone metastasis of hip which confirmed renal cell carcinoma. Also has asymptomatic pathological fracture of left shoulder which she follows Dr. Car for. Discovery of bilateral lower extremity DVTs in 2011. She was initiated on Coumadin but INR went to 12 in only a couple days of use and developed bleeding in the legs. Therefore, [place] filter placed and she is not on blood thinners. In the ED, patient is hypotensive but responded to fluid resuscitation. She is afebrile and without leukocytosis. Lactic acid 2.03. Sodium 128. Creatinine 4.0 with baseline of 1.4-1.7. She will be admitted to telemetry for sepsis related to UTI. 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 Social History Smoking Status: Never Smoker Smokeless Tobacco Use: No Alcohol Use: none Drug Use: none Marital Status: Occupational Status: retired Immunizations History of Influenza Vaccine: Yes History of Tetanus Vaccine?: Unknown History of Pneumococcal: Yes History of Hepatitis B Vaccine: No Multi-Drug Resistant Organisms History of MDRO: No Allergies Coded Allergies: Adhesives (Verified Allergy, Mild, LOCAL SKIN IRRITATION, BLISTERS, ) Home Medications Scheduled Denosumab (Xgeva), 1 DOSE SC MONTHLY Fentanyl (Fentanyl), 50 MCG TD Q3D@2000 Insulin Detemir (Levemir Flextouch), 6 UNITS SQ QAM Insulin Detemir (Levemir Flextouch), 3 UNITS SQ QPM Lactobacillus-Inulin (Culturelle), 1 CAP PO DAILY Levothyroxine Sodium (Levothyroxine Sodium), 200 MCG PO DAILY Lisinopril (Lisinopril), 10 MG PO DAILY Nivolumab (Opdivo), 1 DOSE IV [id number] Pantoprazole (Protonix), 40 MG PO DAILY [Opdiva], 1 DOSE IV. [id number] Scheduled PRN Acetaminophen Tab (Tylenol), 650 MG PO Q4 PRN for Pain Furosemide (Lasix), 20 MG PO DAILY PRN for EDEMA Hydrocodone/Acetaminophen 7.5MG/325MG ([place] 7.5MG/325MG), 1-2 TAB PO Q4 PRN for Pain Ondansetron Hcl (Zofran), 8 MG PO Q8 PRN for Nausea Polyethylene (Miralax), 17 GM PO DAILY PRN for Constipation Senna (Senokot), 1 TAB PO DAILY PRN for Constipation Review of Systems Constitutional: No fever, No chills Eyes: No worsening of vision ENT: No nasal symptoms, No sore throat, No trouble swallowing Respiratory: No cough, No shortness of breath Cardiovascular: No chest pain, No orthopnea, No palpitations Abdomen: + nausea (yesterday - currently resolved), No pain, No vomiting, No diarrhea, No GI bleeding Musculoskeletal: No calf pain Genitourinary - Female: No dysuria, No urinary frequency Hematologic / Lymphatic: No abnormal bleeding/bruising Integumentary: No rash Physical Exam Vital Signs Date Time Temp Pulse Resp B/P (MAP) Pulse Ox O2 Delivery O2 Flow Rate FiO2 03/21/17 15:00 98 Room Air 03/21/17 14:46 97/49 03/21/17 14:43 85 13 98 03/21/17 14:38 86 16 03/21/17 14:33 86 14 99 03/21/17 14:32 96/57 03/21/17 14:28 86 15 100 03/21/17 14:23 87 14 95 03/21/17 14:18 88 16 90 03/21/17 14:16 121/58 03/21/17 14:13 85 16 03/21/17 14:08 86 15 03/21/17 14:03 86 25 03/21/17 14:01 98/53 03/21/17 13:58 84 15 03/21/17 13:53 84 16 98 03/21/17 13:48 86 13 99 03/21/17 13:45 106/50 03/21/17 13:43 88 19 97 03/21/17 13:38 89 14 96/63 100 03/21/17 13:33 90 13 98 03/21/17 13:33 90 13 98 03/21/17 13:28 93 19 99 03/21/17 13:28 93 19 99 03/21/17 13:23 92 11 98 03/21/17 13:23 92 11 98 03/21/17 13:18 91 14 99 03/21/17 13:13 90 12 98 03/21/17 13:10 91 03/21/17 13:02 94/47 03/21/17 12:49 37.1 94 20 85/53 100 Room Air General Appearance: no apparent distress, + thin, + pertinent finding (non- toxic appearing) Head: normocephalic, atraumatic Eyes: sclerae normal ENT: pharynx normal Neck: supple, no JVD, trachea midline Respiratory/Chest: lungs clear, normal breath sounds, no respiratory distress, no accessory muscle use Cardiovascular: regular rate, rhythm, no gallop, + systolic murmur Abdomen/GI: normal bowel sounds, non tender, soft Back: normal inspection Extremities/Musculoskelatal: no pedal edema, + pertinent finding (thickened skin with minimal chronic discoloration, no weeping wounds; thin scattered varicose veins) Neurologic/Psych: alert, oriented x 3 Skin: normal color, warm/dry Diagnostics Laboratory Results Results Past 24 Hours Test 03/21/17 13:12 03/21/17 13:20 03/21/17 13:38 03/21/17 15:44 Range/Units Urine Color DK YELLOW Urine Appearance TURBID CLEAR Urine pH 5.0 4.5-7.5 Urine Specific [place] 1.033 1.000-1.030 Urine Protein 1+ NEG Urine Glucose (UA) NEG NEG Urine Ketones NEG NEG Urine Occult Blood 2+ NEG Urine Nitrite POS NEG Urine Bilirubin NEG NEG Urine Urobilinogen NEG NEG Urine Leukocyte Esterase MODERATE NEG Urine RBC (Auto) 0-4 /hpf Urine Hyaline Casts (Auto) 0-5 /lpf Urine RBC >30 0-4 /hpf Urine WBC >30 0-5 /hpf Urine Epithelial Cells 5-10 0-5 /lpf Urine Bacteria 3+ NEG Urine Pathogenic Casts 0 /lpf Urine Yeast (Auto) NONE PRSENT White Blood Count 9.84 4.8-10.8 K/uL Red Blood Count 3.79 4.2-5.4 M/uL Hemoglobin 10.9 12.0-16.0 g/dL Hematocrit 33.3 37-47 % Mean Corpuscular Volume 87.9 80-100 fL Mean Corpuscular Hemoglobin 28.8 25-34 pg Mean Corpuscular Hemoglobin Concent 32.7 32-36 g/dl Platelet Count 159 130-400 K/uL Mean Platelet Volume 11.2 7.4-10.4 fL Neutrophils (%) (Auto) 92.1 % Lymphocytes (%) (Auto) 4.2 % Monocytes (%) (Auto) 1.7 % Eosinophils (%) (Auto) 0.8 % Basophils (%) (Auto) 0.0 % Neutrophils # (Auto) 9.06 1.4-6.5 K/uL Lymphocytes # (Auto) 0.41 1.2-3.4 K/uL Monocytes # (Auto) 0.17 0.11-0.59 K/uL Eosinophils # (Auto) 0.08 0-0.5 K/uL Basophils # (Auto) 0.00 0-0.2 K/uL RDW Standard Deviation 57.6 36.4-46.3 fL RDW Coefficient of Variation 17.9 11.5-14.5 % Immature Granulocyte % (Auto) 1.2 % Immature Granulocyte # (Auto) 0.12 0.00-0.02 K/uL Sodium Level 128 136-145 mmol/L Potassium Level 4.7 3.5-5.1 mmol/L Chloride Level 93 98-107 mmol/L Carbon Dioxide Level 22 21-32 mmol/L Anion Gap 13.0 3-11 mmol/L Blood Urea Nitrogen 55 7-18 mg/dl Creatinine 4.00 0.60-1.20 mg/dl Est Creatinine Clear Calc Drug Dose 9.2 ml/min Estimated GFR () 11.4 Estimated GFR (Non- 9.9 BUN/Creatinine Ratio 13.7 10-20 Random Glucose 231 70-99 mg/dl Calcium Level 7.6 8.5-10.1 mg/dl Magnesium Level 1.8 1.8-2.4 mg/dl Total Bilirubin 0.5 0.2-1 mg/dl Direct Bilirubin 0.2 0-0.2 mg/dl Aspartate Amino Transf (AST/SGOT) 21 15-37 U/L Alanine Aminotransferase (ALT/SGPT) 13 12-78 U/L Alkaline Phosphatase 150 45-117 U/L Troponin I < 0.015 0-0.045 ng/ml Total Protein 6.9 6.4-8.2 gm/dl Albumin 2.3 3.4-5.0 gm/dl Bedside Lactic Acid Venous 2.03 0.90-1.70 mmol/L Test 03/21/17 15:47 03/21/17 15:50 Range/Units Microbiology Results 03/21/17 Blood Culture, Received Pending 03/21/17 Blood Culture, Received Pending 03/21/17 Urine Culture, Received Pending Diagnostic Radiology CHEST ONE VIEW PORTABLE CLINICAL HISTORY: fever cough COMPARISON STUDY: 02/12/2017 FINDINGS: Mild stable cardiomegaly. Unchanging destructive lesion left pulmonary apex. Diaphragms are smooth. There is a described pathologic fracture humeral neck on the left. IMPRESSION: Chronic change as described. No acute process currently. EKG Normal sinus rhythm Minimal voltage criteria for LVH, may be normal variant Borderline ECG When compared with ECG of 12-FEB-2017 23:16, No significant change was found Confirmed by Axel Mclaughlin ([id number]) on 03/21/2017 2:03:48 PM Impression Assessment and Plan Ms. Malagon is an 81 y/o female with PMHx of Metastatic Renal Cell Carcinoma S/P L Nephrectomy (1997) on Opdivo, Chronic Kidney Disease Stage III, Grade I Diastolic CHF; T2DM IDDM, HTN, Bilateral Lower Extremity DVTs (2011) S/ P [place] Filter, Hypothyroidism, and GERD who presents to the ED c/o hypotension and suspected UTI x 2 days. Sepsis from Urinary Tract Infection with Hypotension: Immunocompromised on Opdivo - Previous admission (January) - Sepsis from Pansensitive E. Coli - Urine culture and blood cultures pending - Cefepime 1 g IV Q12H - Tylenol po and IV PRN for fever/pain - family reports fluctuating fevers on last admission that only responded to IV Tylenol - NSS 100 mL/hr - pending blood pressure may utilize 500 mL boluses if necessary PIERCE/CKD likely prerenal us renal R/O obst or abscess place bush consult catholic priest Adrenal Insufficiency?: - Given nontoxic appearance, hyponatremia, hypotension, and kidney function will assess further - Random cortisol and AM cortisol - We'll prophylactically treat with Hydrocortisone 100 mg IV Q8H Recent C. Diff: - Probiotics - Prophylactically use Vanco 125 mg po TID Metastatic Renal Cell Carcinoma S/P L Nephrectomy: Bone and Lung Mets - Received Opdivo Q2W - Fentanyl patch 50 mcg Q3D and [place] 1-2 tabs Q4H PRN T2DM - IDDM: - Hold home regimen - SSI with goal 140-180; correction factor 35; carb ratio 1:12 Hypothyroidism: - TSH - pending - Synthroid 200 mcg daily GERD: - Hold protonix and use Pepcid 20 mg daily DVT Prophylaixs: SCD/UESEBIA; Heparin 5000 units SC Q12H Code Status: - FULL RESUSCITATION AT THIS TIME -- Her initial response was "I dont know I haven't really thought about it" - family at bedside were extremely encouraging to allow her to make her own decision. Stated we will place her a full code until she can decide - Will need reassessed Disposition: Lives at home has home nursing - daughter is a nurse here - family very supportive - PT/OT evaluations I personally and independently interviewed and examined the patient I reviewed labs and imaging I agree with above mentioned physical exam, History and ROS I discussed and formulated the assessment and plan with Mrs. Schroeder 81 y/o female with PMHx of Renal Cell Carcinoma S/P L Nephrectomy (1997) , 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 , S/P radiation to hip and left humerous / pathological fracture in left humerus., currently on Opdivo recently had pneumonia / c diff also had Hx of DVT S/P bleeding on coumadin currently SCD boots / family refused heparin SQ P/W fever and hypotension , UA looks like UTI rest of ROS is as above PE cachectic, but not toxic looking chest CTA, heart S1/S2 normal abd soft ND NT ext no edema assessment: Septic shock Urosepsis POA PIERCE/CKD likely prerenal recent c diff Plan: continue IVF hydration catholic priest consult us renal, bush cefepime / oral vanco empiric for c dif Follow up Cx cortisol level is 30 , will dc hydrocortisone Kanchan Espinosa [place] Hospitalist Level of Care Telemetry Advanced Directives Existing Living Will: No Existing Power of Network Security Consultant: No Resuscitation Status FULL RESUSCITATION VTE Prophylaxis VTE Risk Assessment Done? Y/N: Yes Risk Level: Moderate Given or contraindicated: Unfractionated heparin SQ, T.E.D. Stockings, SCD's Social Service Consult Cancer Patient Under [place]
[2017-03-21] MEDS ORDERED: HYDROCORTISONE IV 100 MG in SYRINGE 0 ML IV SCH (16:15)
[2017-03-21 16:47] LABS: PHOSPHORUS 2.3 mg/dl (2.5-4.9); THYROID STIMULATING HORMONE 9.04 uIu/ml (0.300-4.500)
[2017-03-21] MEDS: SODIUM CHLORIDE 0.9% 1000ML 1,000 ML IV SCH (17:16)
[2017-03-21 18:42] VITALS: TEMP 37
--- NOTE | 2017-03-21 18:42 | DIAGNOSTIC IMAGING REPORT ---
ULTRASOUND KIDNEYS AND BLADDER CLINICAL HISTORY: Acute renal insufficiency. COMPARISON STUDY: Abdominal CT dated 02/12/2017. TECHNIQUE: Real-time, grayscale, and color flow sonography of the kidneys and bladder is performed. Images are reviewed in the transverse and longitudinal planes. FINDINGS: Kidneys: The right kidney is atrophic and the left kidney is surgically absent. The right kidney measures 11.4 cm in length There is no hydronephrosis. No shadowing renal calculi are identified. There is no sonographic evidence of contour deforming renal mass lesion. No perinephric fluid is identified. Bladder: The bladder is decompressed and grossly unremarkable. A right ureteral jet was not seen. Upper abdomen: Survey images of the upper abdomen show an enlarged and markedly heterogeneous liver. IMPRESSION: 1. The right kidney is atrophic and without hydronephrosis. 2. The left kidney is surgically absent. 3. The bladder was decompressed and grossly unremarkable. 4. Markedly enlarged and heterogeneous liver. Electronically signed by: Shadi Echols M.D. 03/21/2017 6:41 PM Dictated Date/Time: 03/21/2017 6:38 PM
[2017-03-21 19:51] VITALS: BP 130/67; PULSE 122; TEMP 39; O2SAT 95
[2017-03-21] MEDS ORDERED: ACETAMINOPHEN IV 650 MG in EMPTY BAG 0 ML IV SCH (20:30)
[2017-03-21] MEDS ORDERED: ACETAMINOPHEN IV 650 MG in EMPTY BAG 0 ML IV PRN (20:45)
[2017-03-21] MEDS ORDERED: HEPARIN SOD 5000 UNIT/0.5 ML CARP SQ SCH (21:00)
[2017-03-21] MEDS ORDERED: CEFEPIME CONSULT ACTIVE PRN ×2 (21:15)
[2017-03-21] MEDS: INSULIN ASPART 100 UNITS/ML 3 ML PEN SC SCH (21:27)
[2017-03-21 22:21] VITALS: BP 98/59; PULSE 123; TEMP 38.7
[2017-03-21] MEDS: RASPBERRY SYRUP 5 ML UDP PO SCH (23:35)
[2017-03-21] MEDS: VANCOMYCIN HCL 125 MG/2.5ML SOLN PO SCH (23:35)
[2017-03-21 23:45] VITALS: TEMP 37
[2017-03-22] VITALS (7 sets, daily range): BP systolic 89–141; BP diastolic 50–78; PULSE 59–112; TEMP 36.4–36.7; O2SAT 94–97
[2017-03-22] MEDS: SODIUM CHLORIDE 0.9% 1000ML 1,000 ML IV SCH ×3 (03:29→22:46)
[2017-03-22] MEDS: LEVOTHYROXINE 200 MCG TAB PO SCH (06:17)
[2017-03-22 07:02] LABS: HEMATOCRIT 29.3 % (37-47); MEAN CELL VOLUME 87.7 fL (80-100); MEAN CORPUSCULAR HEMOGLOBIN 28.7 pg (25-34); MEAN CORPUSCULAR HGB CONC 32.8 g/dl (32-36); RED BLOOD COUNT 3.34 M/uL (4.2-5.4)
[2017-03-22 07:30] LABS: MEAN PLATELET VOLUME 11.6 fL (7.4-10.4); PLATELET COUNT 92 K/uL (130-400)
[2017-03-22 07:31] LABS: ANISOCYTOSIS PRESENT; COMPLETE YES; DOHLE BODIES 1+; ECHINOCYTES 2+; LYMPHOCYTE % 1.7 %; META ABS # 0.11 K/uL (0-0); METAMYELOCYTE % 0.9 %; NEUTROPHILS % 95.7 %; PLT ESTIMATE DECREASED; TOXIC GRANULATION 1+; VACUOLIZATION 1+
[2017-03-22 07:40] LABS: BUN/CREATININE RATIO 16.5 (10-20); CALCIUM 6.6 mg/dl (8.5-10.1); CREATININE 3.7 mg/dl (0.60-1.20); MAGNESIUM 1.7 mg/dl (1.8-2.4); PHOSPHORUS 2.4 mg/dl (2.5-4.9); POTASSIUM 4.8 mmol/L (3.5-5.1)
[2017-03-22 07:48] LABS: ALB/GLOB RATIO 0.5 (0.9-2)
[2017-03-22] MEDS ORDERED: NURSING VERBAL MED ORDER ONE (08:30)
[2017-03-22] MEDS: LACTOBACILLUS ACIDOPHILUS (FLORANEX) TAB PO SCH (08:33)
[2017-03-22] MEDS: RASPBERRY SYRUP 5 ML UDP PO SCH ×3 (08:33→20:18)
[2017-03-22] MEDS: VANCOMYCIN HCL 125 MG/2.5ML SOLN PO SCH ×3 (08:33→20:18)
[2017-03-22] MEDS: INSULIN ASPART 100 UNITS/ML 3 ML PEN SC SCH ×5 (08:40→23:23)
[2017-03-22] MEDS: FAMOTIDINE 20 MG TAB PO SCH (08:42)
[2017-03-22] MEDS ORDERED: VANCOMYCIN CONSULT ACTIVE PRN (08:45)
[2017-03-22] MEDS ORDERED: VANCOMYCIN INJ 1,500 MG in SODIUM CHLORIDE 0.9% 500ML 500 ML IV SCH (09:00)
[2017-03-22] MEDS ORDERED: PANTOprazole SOD 40 MG TAB PO SCH (09:00)
[2017-03-22] MEDS: PANTOprazole SOD 40 MG TAB PO SCH (09:21)
--- NOTE | 2017-03-22 09:41 | Pharmacy Progress Note ---
Pharmacy Abx Initial Consult Date of Service Mar 22, 2017. Pharmacy Dosing Scope Date of Consult: 03/22/17 Consultation requested by: Dr. Qureshi Pharmacy is consulted to initiate vancomycin and cefepime IV therapy, order appropriate labs and adjust drug dose/frequency. Subjective The patient is a 81 year old female admitted on Mar 21, 2017 at 15:43. Objective Height (Feet): 5 Height (Inches): 0.00 Weight (Kilograms): 68.300 Vital Signs (Past 12Hrs) Vital Signs Past 12 Hours Date Time Temp Pulse Resp B/P (MAP) Pulse Ox O2 Delivery O2 Flow Rate FiO2 03/22/17 07:28 36.7 91 18 89/51 (64) 96 Room Air 03/22/17 04:51 36.5 97 18 95/57 (70) 95 Room Air 03/22/17 00:00 36.4 112 18 94/60 (71) 95 03/21/17 23:59 Room Air 03/21/17 23:45 37.0 03/21/17 22:21 38.7 123 20 98/59 (72) Room Air Lab Results (24Hrs) Laboratory Tests (24 Hours) Test 03/21/17 13:20 03/21/17 16:07 03/22/17 06:47 White Blood Count 9.84 K/uL (4.8-10.8) 11.90 K/uL (4.8-10.8) H Red Blood Count 3.79 M/uL (4.2-5.4) L 3.34 M/uL (4.2-5.4) L Hemoglobin 10.9 g/dL (12.0-16.0) L 9.6 g/dL (12.0-16.0) L Hematocrit 33.3 % (37-47) L 29.3 % (37-47) L Mean Corpuscular Volume 87.9 fL (80-100) 87.7 fL (80-100) Mean Corpuscular Hemoglobin 28.8 pg (25-34) 28.7 pg (25-34) Mean Corpuscular Hemoglobin Concent 32.7 g/dl (32-36) 32.8 g/dl (32-36) Platelet Count 159 K/uL (130-400) 92 K/uL (130-400) L Mean Platelet Volume 11.2 fL (7.4-10.4) H 11.6 fL (7.4-10.4) H Neutrophils (%) (Auto) 92.1 % Lymphocytes (%) (Auto) 4.2 % Monocytes (%) (Auto) 1.7 % Eosinophils (%) (Auto) 0.8 % Basophils (%) (Auto) 0.0 % Neutrophils # (Auto) 9.06 K/uL (1.4-6.5) H Lymphocytes # (Auto) 0.41 K/uL (1.2-3.4) L Monocytes # (Auto) 0.17 K/uL (0.11-0.59) Eosinophils # (Auto) 0.08 K/uL (0-0.5) Basophils # (Auto) 0.00 K/uL (0-0.2) Lactic Acid Level 1.6 mmol/L (0.4-2.0) Micro Results Date/Time Source Procedure Growth Status 03/21/17 13:30 Blood Blood Culture Pending Received 03/21/17 13:20 Blood Blood Culture - Preliminary Gram Positive Cocci Resulted 03/21/17 13:12 Urine,Catheterized Urine Culture - Final THREE TYPES OF ORGANISMS PRESENT, ALL... Complete Risk Factors for Resistance * Hospitalization for 48 hours or more within the past 90 days * Immunocompromised (chronic steroid therapy, chemotherapy, immunomodulators) * Antimicrobial use within the last 90 days: * cefepime, ceftriaxone in January 2017 for E. 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 Vancomycin IV * Loading dose: 1500 mg (22 mg/kg) * Random level in AM of 03/23/17 secondary to PIERCE and likely prolonged elimination half-life of IV vancomycin at this time * If/When serum creatinine is back to baseline (~1.5-1.9mg/dL) may be able to set scheduled maintenance dose. Cefepime IV * Target dose = 0.5-1g IV every 12 hours * Dose adj for CrCL ~11-29mL/min (not quite there, but expect improved renal function with hydration) * cefepime 500mg IV every 24 hours Vancomycin PO (not a pharmacy consult) * 125mg PO TID for prophylaxis of C. difficile (recent C. difficile infection prior admission) Pharmacy will continue to follow and will adjust dose/frequency as necessary. Thank you.
--- NOTE | 2017-03-22 10:21 | Clinical Documentation Query ---
CLINICAL DOCUMENTATION QUERY Dr. LOZA, In your clinical opinion is this patient being managed for: ( x) Hyponatremia ( ) Other explanation of clinical findings (Please Explain) ( ) Unable to determine (Please Define) ( ) Need to Discuss ( ) Not Agree The medical record reflects the following clinical findings, treatment, and risk factors. Clinical Indicators: 81 yo female presenting with sepsis and PIERCE. Initial Na 128, has improved slightly to 131. Treatment:serial PRP's, IV fluid bolus then continuous, nephrology consult, treatment of sepsis, I/O Risk Factors: dehydration, PIERCE, sepsis Please clarify and document your clinical opinion in the progress notes and discharge summary. Terms such as "probable", "suspected", "likely", "questionable", "possible", or "still to be ruled out" are acceptable. IF IN AGREEMENT, YOU MUST DOCUMENT ABOVE DIAGNOSTIC STATEMENT IN DAILY PROGRESS NOTES AND DISCHARGE SUMMARY. This document is not part of the patient's record. Thank You, Adelita Hong, RN [phone]
--- NOTE | 2017-03-22 10:46 | Medical Consult ---
Consultation Date of Consultation: Mar 22, 2017. Attending Physician: Mitesh Qureshi MD, PhD Reason for Consultation: Positive Blood Cx History of Present Illness Patient is an 81-year-old female with history of metastatic renal cell carcinoma s/p left nephrectomy in 1987, diabetes, and other chronic disorders listed below who presents to the emergency department with complaints hypotension and suspected urinary tract infection. Patient has had urinary tract infection in past with pansensitive E coli. She was previously admitted at the beginning January 2017 at which time she was diagnosed with a urinary tract infection and treated with IV antibiotic therapy. She subsequently developed C diff colitis. She was then treated with p.o. Flagyl for 10 days. Her daughter is with her today and feels that in most of the history since her mother is lethargic on exam. Her daughter states that she did improve with p.o. Flagyl therapy and with IV antibiotics. She was admitted for 7 days previously and was not given any further antibiotic treatment for her UTI after discharge from the hospital because she completed her course in house. Prior to current admission, the patient did have a urine culture completed at her primary care physician's office, [facility]. I did call and speak with the nurses at her primary care physician and obtained the culture results. It was noted that she had greater than 100,000 colonies of E coli which was intermediately sensitive to ampicillin but otherwise sensitive. Since current admission, the patient had a repeat urine culture which is growing greater than 3 types organisms. 1/2 of her initial blood cultures are growing gram-positive cocci and gram-negative bacilli. The other blood culture is pending. She did have a chest x-ray which showed chronic changes but no acute process. Renal ultrasound showed right kidney atrophy without hydronephrosis, and surgically absent left kidney. She was noted to have a markedly enlarged liver. White blood cell count on admission was 9.84. Her creatinine was 4.00. 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 Noncontributory Social History Smoking Status: Never Smoker Smokeless Tobacco Use: No Alcohol Use: none Drug Use: none Marital Status: Housing Status: lives with family Occupation Status: retired Allergies Coded Allergies: Adhesives (Verified Allergy, Mild, LOCAL SKIN IRRITATION, BLISTERS, ) Home Medications Reported Home Medications Medications Dose Route/Sig Max Daily Dose Days Date Category Dose Instructions Lisinopril 10 Mg Tab 10 Mg PO DAILY 03/21/17 Reported Tylenol (Acetaminophen) 325 Mg Tab 650 Mg PO Q4 PRN 03/21/17 Reported ALTERNATES DOSES WITH NORCO Culturelle (Lactobacillus-Inulin) 1 Cap Cap 1 Cap PO DAILY 03/21/17 Reported Opdivo (Nivolumab) Unknown Strength Inj 1 Dose IV H9ELENC 03/21/17 Reported Zofran (Ondansetron HCl) 8 Mg Tab 8 Mg PO Q8 PRN 03/21/17 Reported Levothyroxine Sodium 200 Mcg Tab 200 Mcg PO DAILY 03/21/17 Reported Fentanyl 50 Mcg Tdsy 50 Mcg TD Q3D@2000 02/15/17 Rx Miralax (Polyethylene) 17 Gm Pow 17 Gm PO DAILY PRN 30 02/11/17 Rx Lasix (Furosemide) 20 Mg Tab 20 Mg PO DAILY PRN 02/08/17 Rx [place] 7.5MG/325MG (Acetaminophen/Hydrocodone Bitart) Tab 1-2 Tab PO Q4 PRN 02/07/17 Reported PRN PAIN [Opdiva] 1 Dose IV. [id number] 02/07/17 Reported Levemir Flextouch (Insulin Detemir) 100 Unit/Ml Inj 3 Units SQ QPM 02/07/17 Reported Levemir Flextouch (Insulin Detemir) 100 Unit/Ml Inj 6 Units SQ QAM 02/07/17 Reported Xgeva (Denosumab) 120 Mg/1.7 Ml Inj 1 Dose SC MONTHLY 03/16/16 Reported Protonix (Pantoprazole Sodium) 40 Mg Tab 40 Mg PO DAILY 05/31/15 Reported Senokot (Senna) 8.6 Mg Tab 1 Tab PO DAILY PRN 01/10/12 Reported Current Inpatient Medications Current Inpatient Medications Medications (Trade) Dose Ordered Sig/Suleiman Route Start Time Stop Time Status Last Admin Dose Admin Sodium Chloride 1,000 ml @ 100 mls/hr Q10H IV 03/21/17 17:00 04/20/17 16:59 03/22/17 03:29 100 MLS/HR Acetaminophen (Tylenol Tab) 650 mg Q4H PRN PO 03/21/17 15:45 04/20/17 15:44 Al Hydrox/Mg Hydrox/Simethicone (Maalox Max Susp) 15 ml Q4H PRN PO 03/21/17 15:45 04/20/17 15:44 Magnesium Hydroxide (Milk Of Magnesia Susp) 30 ml Q12H PRN PO 03/21/17 15:45 04/20/17 15:44 Ondansetron HCl (Zofran Inj) 4 mg Q6H PRN IV 03/21/17 15:45 04/20/17 15:44 Polyethylene (Miralax Powder Packet) 17 gm DAILY PRN PO 03/21/17 15:45 04/20/17 15:44 Insulin Aspart (novoLOG ASPART) SLIDING SCALE If C... ACHS SC 03/21/17 16:00 04/20/17 15:59 03/22/17 08:40 6 UNITS Glucose (Glucose 40% Gel) 15-30 GRAMS 15 GRAMS... UD PRN PO 03/21/17 15:45 04/20/17 15:44 Glucose (Glucose Chew Tab) 4-8 Tablets 4 Tabl... UD PRN PO 03/21/17 15:45 04/20/17 15:44 Dextrose (Dextrose 50% 50ML Syringe) 25-50ML OF 50% DW IV FOR... UD PRN IV 03/21/17 15:45 04/20/17 15:44 Glucagon (Glucagon Inj) 1 mg UD PRN SQ 03/21/17 15:45 04/20/17 15:44 Fentanyl (Duragesic Patch) 50 mcg Q3D@1999 TD 03/23/17 20:00 04/06/17 19:59 Acetaminophen/ Hydrocodone Bitart ([place] 7.5/325 Tab) 1 tab for mild-moderate pain (p... Q4 PRN PO 03/21/17 15:45 04/04/17 15:44 03/22/17 09:05 1 TAB Levothyroxine Sodium (Synthroid Tab) 200 mcg DAILYBB PO 03/22/17 06:30 04/21/17 06:29 03/22/17 06:17 200 MCG Ondansetron HCl (Zofran Tab) 8 mg Q8 PRN PO 03/21/17 15:45 04/20/17 15:44 Senna (Senokot Tab) 8.6 mg DAILY PRN PO 03/21/17 15:45 04/20/17 15:44 Lactobacillus Acidophilus (Floranex Tab) 1 tab DAILY PO 03/22/17 09:00 04/21/17 08:59 03/22/17 08:33 1 TAB Cefepime HCl 500 mg/Dextrose 105.65 ml @ 200 mls/ hr DAILY@1400 IV 03/22/17 14:00 03/31/17 13:59 Vancomycin HCl (Vancomycin Oral Soln) 125 mg TID PO 03/21/17 21:00 04/04/17 20:59 03/22/17 08:33 125 MG Famotidine (Pepcid Tab) 20 mg QAM PO 03/22/17 09:00 04/21/17 08:59 Miscellaneous (Fentanyl Patch Remove & Waste) 1 ea Q3D N/A 03/23/17 20:00 04/22/17 19:59 Miscellaneous Information (Check Fentanyl Patch Placement) 1 ea QS N/A 03/22/17 17:00 04/21/17 16:59 Raspberry (Raspberry Syrup 5ml Cup) 5 ml TID PO 03/21/17 21:00 04/04/17 20:59 03/22/17 08:33 5 ML Acetaminophen 650 mg/Empty Bag 65 ml @ 260 mls/hr Q6H PRN IV 03/21/17 20:45 04/20/17 20:44 Cefepime HCl (Consult) 1 ea UD PRN N/A 03/21/17 21:15 04/20/17 21:14 Pantoprazole Sodium (Protonix Tab) 40 mg QAM PO 03/22/17 09:00 04/21/17 08:59 03/22/17 09:21 40 MG Vancomycin HCl (Consult) 1 ea UD PRN N/A 03/22/17 08:45 04/21/17 08:44 Vancomycin HCl 1500 mg/Sodium Chloride 530 ml @ 200 mls/hr 0900 IV 03/22/17 09:00 03/22/17 11:38 03/22/17 09:21 200 MLS/HR Review of Systems Constitutional: + fever (at home), + weakness, + fatigue Eyes: No worsening of vision ENT: No hearing loss Respiratory: No cough, No shortness of breath Cardiovascular: No chest pain Abdomen: + problem reported (recent hx C. Diff), No pain, No nausea, No vomiting, No diarrhea Musculoskeletal: No joint pain, No muscle pain Genitourinary - Female: + urinary incontinence (chronic), No dysuria, No urinary frequency Integumentary: No rash, No itch Physical Exam Date Time Temp Pulse Resp B/P (MAP) Pulse Ox O2 Delivery O2 Flow Rate FiO2 03/22/17 07:28 36.7 91 18 89/51 (64) 96 Room Air 03/22/17 04:51 36.5 97 18 95/57 (70) 95 Room Air 03/22/17 00:00 36.4 112 18 94/60 (71) 95 03/21/17 23:59 Room Air 03/21/17 23:45 37.0 03/21/17 22:21 38.7 123 20 98/59 (72) Room Air 03/21/17 20:00 Room Air 03/21/17 19:51 39.0 122 18 130/67 (88) 95 Room Air 03/21/17 18:42 37.0 03/21/17 16:09 90 14 100/55 95 Room Air 03/21/17 15:00 98 Room Air 03/21/17 14:46 97/49 03/21/17 14:43 85 13 98 03/21/17 14:38 86 16 03/21/17 14:33 86 14 99 03/21/17 14:32 96/57 03/21/17 14:28 86 15 100 03/21/17 14:23 87 14 95 03/21/17 14:18 88 16 90 03/21/17 14:16 121/58 03/21/17 14:13 85 16 03/21/17 14:08 86 15 03/21/17 14:03 86 25 03/21/17 14:01 98/53 03/21/17 13:58 84 15 03/21/17 13:53 84 16 98 03/21/17 13:48 86 13 99 03/21/17 13:45 106/50 03/21/17 13:43 88 19 97 03/21/17 13:38 89 14 96/63 100 03/21/17 13:33 90 13 98 03/21/17 13:33 90 13 98 03/21/17 13:28 93 19 99 03/21/17 13:28 93 19 99 03/21/17 13:23 92 11 98 03/21/17 13:23 92 11 98 03/21/17 13:18 91 14 99 03/21/17 13:13 90 12 98 03/21/17 13:10 91 03/21/17 13:02 94/47 03/21/17 12:49 37.1 94 20 85/53 100 Room Air General Appearance: WD/WN, no apparent distress Head: normocephalic, atraumatic Eyes: normal inspection, sclerae normal ENT: hearing grossly normal Neck: supple, trachea midline Respiratory/Chest: chest non-tender, lungs clear, no respiratory distress, no accessory muscle use, + decreased breath sounds Cardiovascular: regular rate, rhythm, + systolic murmur (soft) Abdomen/GI: normal bowel sounds, non tender, soft Neurologic/Psych: normal mood/affect, + pertinent finding (lethargic) Skin: normal color, warm/dry, no rash Laboratory Results CLINICAL HISTORY: Acute renal insufficiency. COMPARISON STUDY: Abdominal CT dated 02/12/2017. TECHNIQUE: Real-time, grayscale, and color flow sonography of the kidneys and bladder is performed. Images are reviewed in the transverse and longitudinal planes. FINDINGS: Kidneys: The right kidney is atrophic and the left kidney is surgically absent. The right kidney measures 11.4 cm in length There is no hydronephrosis. No shadowing renal calculi are identified. There is no sonographic evidence of contour deforming renal mass lesion. No perinephric fluid is identified. Bladder: The bladder is decompressed and grossly unremarkable. A right ureteral jet was not seen. Upper abdomen: Survey images of the upper abdomen show an enlarged and markedly heterogeneous liver. IMPRESSION: 1. The right kidney is atrophic and without hydronephrosis. 2. The left kidney is surgically absent. 3. The bladder was decompressed and grossly unremarkable. 4. Markedly enlarged and heterogeneous liver. Item Value Date Time Blood Culture Received 03/21/17 1330 Blood Pending Blood Culture - Preliminary Resulted 03/21/17 1320 Blood Gram Positive Cocci Urine Culture - Final Complete 03/21/17 1312 Urine,Catheterized THREE TYPES OF ORGANISMS PRESENT, ALL... Last 24 Hours Test 03/21/17 13:12 03/21/17 13:20 03/21/17 13:38 03/21/17 13:44 Urine Color DK YELLOW Urine Appearance TURBID Urine pH 5.0 Urine Specific [place] 1.033 Urine Protein 1+ Urine Glucose (UA) NEG Urine Ketones NEG Urine Occult Blood 2+ Urine Nitrite POS Urine Bilirubin NEG Urine Urobilinogen NEG Urine Leukocyte Esterase MODERATE Urine RBC (Auto) /hpf Urine Hyaline Casts (Auto) /lpf Urine RBC >30 /hpf Urine WBC >30 /hpf Urine Epithelial Cells 5-10 /lpf Urine Bacteria 3+ Urine Pathogenic Casts /lpf Urine Yeast (Auto) White Blood Count 9.84 K/uL Red Blood Count 3.79 M/uL Hemoglobin 10.9 g/dL Hematocrit 33.3 % Mean Corpuscular Volume 87.9 fL Mean Corpuscular Hemoglobin 28.8 pg Mean Corpuscular Hemoglobin Concent 32.7 g/dl Platelet Count 159 K/uL Mean Platelet Volume 11.2 fL Neutrophils (%) (Auto) 92.1 % Lymphocytes (%) (Auto) 4.2 % Monocytes (%) (Auto) 1.7 % Eosinophils (%) (Auto) 0.8 % Basophils (%) (Auto) 0.0 % Neutrophils # (Auto) 9.06 K/uL Lymphocytes # (Auto) 0.41 K/uL Monocytes # (Auto) 0.17 K/uL Eosinophils # (Auto) 0.08 K/uL Basophils # (Auto) 0.00 K/uL RDW Standard Deviation 57.6 fL RDW Coefficient of Variation 17.9 % Immature Granulocyte % (Auto) 1.2 % Immature Granulocyte # (Auto) 0.12 K/uL Sodium Level 128 mmol/L Potassium Level 4.7 mmol/L Chloride Level 93 mmol/L Carbon Dioxide Level 22 mmol/L Anion Gap 13.0 mmol/L Blood Urea Nitrogen 55 mg/dl Creatinine 4.00 mg/dl Est Creatinine Clear Calc Drug Dose 9.2 ml/min Estimated GFR () 11.4 Estimated GFR (Non- 9.9 BUN/Creatinine Ratio 13.7 Random Glucose 231 mg/dl Calcium Level 7.6 mg/dl Magnesium Level 1.8 mg/dl Total Bilirubin 0.5 mg/dl Direct Bilirubin 0.2 mg/dl Aspartate Amino Transf (AST/SGOT) 21 U/L Alanine Aminotransferase (ALT/SGPT) 13 U/L Alkaline Phosphatase 150 U/L Troponin I < 0.015 ng/ml Total Protein 6.9 gm/dl Albumin 2.3 gm/dl Random Cortisol 30.71 mcg/dl Bedside Lactic Acid Venous 2.03 mmol/L Phosphorus Level 2.3 mg/dl Thyroid Stimulating Hormone (TSH) 9.040 uIu/ml Test 03/21/17 16:07 03/21/17 17:05 03/21/17 17:09 03/21/17 20:48 Lactic Acid Level 1.6 mmol/L Free Thyroxine 2.08 ng/dl Bedside Glucose 199 mg/dl 215 mg/dl Test 03/22/17 06:47 03/22/17 07:23 White Blood Count 11.90 K/uL Red Blood Count 3.34 M/uL Hemoglobin 9.6 g/dL Hematocrit 29.3 % Mean Corpuscular Volume 87.7 fL Mean Corpuscular Hemoglobin 28.7 pg Mean Corpuscular Hemoglobin Concent 32.8 g/dl Platelet Count 92 K/uL Mean Platelet Volume 11.6 fL RDW Standard Deviation 57.6 fL RDW Coefficient of Variation 17.8 % Neutrophils % (Manual) 95.7 % Lymphocytes % (Manual) 1.7 % Monocytes % (Manual) 1.7 % Metamyelocytes % 0.9 % Neutrophils # (Manual) 11.39 K/uL Total Absolute Neutrophils 11.39 K/uL Lymphocytes # (Manual) 0.20 K/uL Total Absolute Lymphocytes 0.20 K/uL Monocytes # (Manual) 0.20 K/uL Metamyelocytes # 0.11 K/uL Toxic Granulation 1+ Toxic Vacuolation 1+ Dohle Bodies 1+ Platelet Estimate DECREASED Anisocytosis PRESENT Echinocytes 2+ Sodium Level 131 mmol/L Potassium Level 4.8 mmol/L Chloride Level 99 mmol/L Carbon Dioxide Level 17 mmol/L Anion Gap 15.0 mmol/L Blood Urea Nitrogen 61 mg/dl Creatinine 3.70 mg/dl Est Creatinine Clear Calc Drug Dose 10.3 ml/min Estimated GFR () 12.6 Estimated GFR (Non- 10.9 BUN/Creatinine Ratio 16.5 Random Glucose 279 mg/dl Calcium Level 6.6 mg/dl Phosphorus Level 2.4 mg/dl Magnesium Level 1.7 mg/dl Total Bilirubin 0.5 mg/dl Aspartate Amino Transf (AST/SGOT) 14 U/L Alanine Aminotransferase (ALT/SGPT) 9 U/L Alkaline Phosphatase 124 U/L Total Protein 5.4 gm/dl Albumin 1.8 gm/dl Globulin 3.6 gm/dl Albumin/Globulin Ratio 0.5 Cortisol AM Sample 28.29 mcg/dl Bedside Glucose 325 mg/dl Assessment & Plan Patient with GPC and GNB bacteremia with probable urinary source. She has a urine culture completed at [facility] on 03/20 which grew E. Coli > 100,000 colonies with intermediate resistance to Ampicillin only. She is currently on IV Vancomycin, Cefepime, and PO Vancomycin for concerns of recent C. Diff infection. Feel that this is appropriate pending final culture results. Current culture from admission showing >3 types of organisms- will repeat collection. We will follow an adjust abx. Case reviewed and agree iwth above assesment.
[2017-03-22] MEDS ORDERED: PHARMACY GLYCEMIC MGMT CONSULT PRN (12:14)
[2017-03-22] MEDS ORDERED: INSULIN REGULAR 5 UNITS in SYRINGE 4.95 ML IV ONE ×2 (13:00→17:30)
[2017-03-22] MEDS ORDERED: INSULIN DETEMIR FLEXPEN/FLEX TOUCH 100 UNITS/ML 3ML SC ONE (13:00)
--- NOTE | 2017-03-22 13:15 | Pharmacy Progress Note ---
Glycemic Control Intl Consult Date of Service Mar 22, 2017. Scope Glycemic Pharmacist consulted by Dr Qureshi on 03/22/17 for glycemic control and to write orders per [facility] inpatient glycemic control protocol Objective Weight (Kilograms): 68.300 Accuchecks BSG (last 24hrs): Test 03/21/17 13:20 03/21/17 17:09 03/21/17 20:48 03/22/17 06:47 Random Glucose 231 mg/dl (70-99) 279 mg/dl (70-99) Bedside Glucose 199 mg/dl (70-90) 215 mg/dl (70-90) Test 03/22/17 07:23 03/22/17 11:38 Bedside Glucose 325 mg/dl (70-90) 321 mg/dl (70-90) Laboratory Data (last 24hrs) Test 03/21/17 13:20 03/22/17 06:47 Anion Gap 13.0 mmol/L 15.0 mmol/L BUN/Creatinine Ratio 13.7 16.5 Blood Urea Nitrogen 55 mg/dl 61 mg/dl Creatinine 4.00 mg/dl 3.70 mg/dl Potassium Level 4.7 mmol/L 4.8 mmol/L Sodium Level 128 mmol/L 131 mmol/L White Blood Count 9.84 K/uL 11.90 K/uL Red Blood Count 3.79 M/uL 3.34 M/uL Hemoglobin 10.9 g/dL 9.6 g/dL Hematocrit 33.3 % 29.3 % Mean Corpuscular Volume 87.9 fL 87.7 fL Mean Corpuscular Hemoglobin 28.8 pg 28.7 pg Mean Corpuscular Hemoglobin Concent 32.7 g/dl 32.8 g/dl Platelet Count 159 K/uL 92 K/uL Mean Platelet Volume 11.2 fL 11.6 fL Neutrophils (%) (Auto) 92.1 % Lymphocytes (%) (Auto) 4.2 % Monocytes (%) (Auto) 1.7 % Eosinophils (%) (Auto) 0.8 % Basophils (%) (Auto) 0.0 % Neutrophils # (Auto) 9.06 K/uL Lymphocytes # (Auto) 0.41 K/uL Monocytes # (Auto) 0.17 K/uL Eosinophils # (Auto) 0.08 K/uL Basophils # (Auto) 0.00 K/uL Recent Pertinent Medications Outpatient Anti-diabetic Regimen: * Levemir 6 units qam + 3 units qpm * A1c = 8.1 % 02/07/17 The patient is currently receiving: * Basal insulin: none * Correctional Insulin: Novolog Correction per scale ACHS Goal Range: Low 140 mg/dL - High 180 mg/dL Correction Factor: 32 mg/dL/unit * Prandial insulin: Per carb ratio of 1 unit per 12 grams CHO consumed * Oral Agents: none Risk Factors for Insulin Resistance: * Infection: Sepsis, recurrent C.diff -> empiric Cefepime and Vancomycin PO * Diet: regular -> will change to T2DM Assessment & Plan ASSESSMENT: * 81 yr old T2DM female admitted with sepsis, acute on chronic PIERCE and hyperglycemia * Patient has not received any basal insulin since admission. Hyperglycemia worsened overnight likely due to stress of infection and basal insulin deficiency. Home dose of insulin is insufficient for patient evidenced by A1c of 8.1%. * Will attempt to manage patient with basal + bolus insulin regimen, however, IV insulin per protocol may be necessary if severe hyperglycemia persists. * One time dose of IV insulin due to BSG of near 350 mg/dL * Start basal insulin with Levemir * Tighten CF/CR slightly - additional of basal will likely help non-fasting BSGs also * ADA & AACE recommend a goal blood sugar range 140-180 mg/dl for the majority of critically ill & non-critically ill patients. However, more stringent targets may be selected in individual cases. Continue this goal range for now to avoid rapid correction of BSG. Also, patient reported to RN that she feels hypoglycemic at BSG of around 100 mg/dL and is in PIERCE. PLAN FOR INPATIENT GLYCEMIC CONTROL: * Regular IV insulin 5 units x 1 dose now * Levemir 10 units SQ now + 0-3 units SQ HS (none if BSG is less than 180 mg/dL , 3 units if BSG is 180 mg/dL or more) * Further basal insulin to be selected on 03/23 am * Correctional Insulin with NOVOLOG per scale ACHS * Goal Range: Low 140 mg/dL - High 180 mg/dL * Correction Factor: 25 mg/dL/unit * Nutritional / Prandial insulin per carb ratio of 1 unit per 9 grams CHO consumed * Will consider starting IV insulin infusion per protocol if severe hyperglycemia persists * Please note that the plan above was derived based on current level of insulin resistance and hospital stress. These recommendations are appropriate for inpatient admission only. Plan of care upon discharge will need to be reassessed to avoid potential outpatient hypo/hyperglycemia. Thank you.
--- NOTE | 2017-03-22 14:07 | Progress Note ---
Subjective Date of Service: Mar 22, 2017. Subjective Pt evaluation today including: conversation w/ patient, conversation w/ family , physical exam, chart review, lab review, review of studies, review of inpatient medication list Voiding: no voiding problems Reports generally feeling much better compared to yesterday Some burning sensations in urination MAXIMUM TEMPERATURE was 39 in last 7 PM Problem List Medical Problems: (1) Acute renal failure Status: Acute (2) Sepsis Status: Acute (3) Sepsis Status: Acute (4) UTI (urinary tract infection) Status: Acute (5) UTI (urinary tract infection) Status: Acute Review of Systems Constitutional: + weakness, + fatigue, No fever, No chills, No sweats, No weight loss, No problem reported Eyes: No worsening of vision, No eye pain, No redness, No discharge, No diplopia ENT: No hearing loss, No unusual epistaxis, No nasal symptoms, No sore throat, No tinnitus, No dental problems, No trouble swallowing Respiratory: No cough, No sputum, No wheezing, No shortness of breath, No dyspnea on exertion, No dyspnea at rest, No hemoptysis Cardiac: No chest pain, No orthopnea, No PND, No edema, No claudication, No palpitations Abdomen: No pain, No nausea, No vomiting, No diarrhea, No constipation Musculoskeletal: No joint pain, No muscle pain, No swelling, No calf pain Female : + dysuria, No urinary frequency, No hematuria, No incontinence, No abnormal vaginal bleeding, No vaginal discharge Neurologic: No memory loss, No paralysis, No weakness, No numbness/tingling, No vertigo, No balance problems Psychiatric: No depression symptoms, No anhedonism, No anxiety, No insomnia, No substance abuse Heme: No abnormal bleeding/bruising, No clotting problems, No swollen lymph nodes, No night sweats Endo: No fatigue, No excessive thirst, No excessive urination Skin: No rash, No itch, No new/changing skin lesions, No color change, No bleeding Objective Vital Signs Date Time Temp Pulse Resp B/P (MAP) Pulse Ox O2 Delivery O2 Flow Rate FiO2 03/22/17 12:00 Room Air 03/22/17 11:44 36.6 88 18 96/56 (69) 97 Room Air 03/22/17 08:00 Room Air 03/22/17 07:28 36.7 91 18 89/51 (64) 96 Room Air 03/22/17 04:51 36.5 97 18 95/57 (70) 95 Room Air 03/22/17 00:00 36.4 112 18 94/60 (71) 95 03/21/17 23:59 Room Air 03/21/17 23:45 37.0 03/21/17 22:21 38.7 123 20 98/59 (72) Room Air 03/21/17 20:00 Room Air 03/21/17 19:51 39.0 122 18 130/67 (88) 95 Room Air 03/21/17 18:42 37.0 03/21/17 16:09 90 14 100/55 95 Room Air 03/21/17 15:00 98 Room Air 03/21/17 14:46 97/49 03/21/17 14:43 85 13 98 03/21/17 14:38 86 16 03/21/17 14:33 86 14 99 03/21/17 14:32 96/57 03/21/17 14:28 86 15 100 03/21/17 14:23 87 14 95 03/21/17 14:18 88 16 90 03/21/17 14:16 121/58 03/21/17 14:13 85 16 03/21/17 14:08 86 15 03/21/17 14:03 86 25 03/21/17 14:01 98/53 Physical Exam General Appearance: WD/WN, no apparent distress, + thin, + pertinent finding ( frail, chronically ill-looking) Eyes: normal inspection, PERRL, EOMI, sclerae normal ENT: normal ENT inspection, hearing grossly normal, pharynx normal Neck: supple, no adenopathy, thyroid normal, no JVD, no carotid bruits, trachea midline Respiratory/Chest: chest non-tender, no respiratory distress, no accessory muscle use, + decreased breath sounds Cardiovascular: regular rate, rhythm, no edema, no gallop, no JVD Abdomen: normal bowel sounds, non tender, soft, no organomegaly, no pulsatile mass Extremities: normal range of motion, non-tender, normal inspection, no pedal edema, no calf tenderness, normal capillary refill, pelvis stable Neurologic/Psychiatric: 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, no motor/sensory deficits, alert, normal mood/affect, oriented x 3 Skin: normal color, warm/dry, no rash Lymphatic: no adenopathy Laboratory Results Last 24 Hours Test 03/21/17 16:07 03/21/17 17:05 03/21/17 17:09 03/21/17 20:48 Lactic Acid Level 1.6 mmol/L Free Thyroxine 2.08 ng/dl Bedside Glucose 199 mg/dl 215 mg/dl Test 03/22/17 06:47 03/22/17 07:23 03/22/17 11:38 White Blood Count 11.90 K/uL Red Blood Count 3.34 M/uL Hemoglobin 9.6 g/dL Hematocrit 29.3 % Mean Corpuscular Volume 87.7 fL Mean Corpuscular Hemoglobin 28.7 pg Mean Corpuscular Hemoglobin Concent 32.8 g/dl Platelet Count 92 K/uL Mean Platelet Volume 11.6 fL RDW Standard Deviation 57.6 fL RDW Coefficient of Variation 17.8 % Neutrophils % (Manual) 95.7 % Lymphocytes % (Manual) 1.7 % Monocytes % (Manual) 1.7 % Metamyelocytes % 0.9 % Neutrophils # (Manual) 11.39 K/uL Total Absolute Neutrophils 11.39 K/uL Lymphocytes # (Manual) 0.20 K/uL Total Absolute Lymphocytes 0.20 K/uL Monocytes # (Manual) 0.20 K/uL Metamyelocytes # 0.11 K/uL Toxic Granulation 1+ Toxic Vacuolation 1+ Dohle Bodies 1+ Platelet Estimate DECREASED Anisocytosis PRESENT Echinocytes 2+ Sodium Level 131 mmol/L Potassium Level 4.8 mmol/L Chloride Level 99 mmol/L Carbon Dioxide Level 17 mmol/L Anion Gap 15.0 mmol/L Blood Urea Nitrogen 61 mg/dl Creatinine 3.70 mg/dl Est Creatinine Clear Calc Drug Dose 10.3 ml/min Estimated GFR () 12.6 Estimated GFR (Non- 10.9 BUN/Creatinine Ratio 16.5 Random Glucose 279 mg/dl Calcium Level 6.6 mg/dl Phosphorus Level 2.4 mg/dl Magnesium Level 1.7 mg/dl Total Bilirubin 0.5 mg/dl Aspartate Amino Transf (AST/SGOT) 14 U/L Alanine Aminotransferase (ALT/SGPT) 9 U/L Alkaline Phosphatase 124 U/L Total Protein 5.4 gm/dl Albumin 1.8 gm/dl Globulin 3.6 gm/dl Albumin/Globulin Ratio 0.5 Cortisol AM Sample 28.29 mcg/dl Bedside Glucose 325 mg/dl 321 mg/dl Assessment and Plan 81 y/o female with PMHx of Renal Cell Carcinoma S/P L Nephrectomy (1997) , 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 , S/P radiation to hip and left humerous / pathological fracture in left humerus., currently on Opdivo recently had pneumonia / c diff also had Hx of DVT S/P bleeding on coumadin currently SCD boots / family refused heparin SQ Sepsis, possible septic shock, with fever and hypotension , upon admission Possible from UTI UA looks like UTI Bacteremia with the gram-positive and gram-negative bacteria growth Urosepsis POA Acute on chronic kidney failure likely prerenal dehydration, today's improving creatinine is 3.7 from 4 recent c diff History of renal cancer currently on chemotherapy, for renal cancer he follow- up with Dr. Lomeli in [facility] Hypomagnesemia, hyponatremia will follow-up Plan: continue IVF hydration Infectious disease input appreciated vp platforms consulted Follow-up us renal, continue bush cefepime / oral vanco empiric for c dif Follow up Cx GI and DVT prophylaxis is covered Discussed with patient and family, onset on questions Continued [facility] stay due to: multiple IV medications needed Discharge planning: home
[2017-03-22] MEDS: CEFEPIME IV 500 MG in DEXTROSE 5% 100ML 100 ML IV SCH (14:23)
[2017-03-22] MEDS ORDERED: INSULIN ASPART 100 UNITS/ML 3 ML PEN SC ONE (15:00)
[2017-03-22] MEDS: CHECK FENTANYL PATCH PLACEMENT SCH ×2 (17:05→23:23)
[2017-03-22] MEDS ORDERED: INSULIN DETEMIR FLEXPEN/FLEX TOUCH 100 UNITS/ML 3ML SC SCH (21:00)
[2017-03-23 00:01] VITALS: BP 92/58; PULSE 81; TEMP 36.4; O2SAT 97
[2017-03-23] MEDS: INSULIN ASPART 100 UNITS/ML 3 ML PEN SC SCH ×5 (04:00→21:20)
[2017-03-23 05:14] VITALS: BP 95/60; PULSE 82; TEMP 36.9; O2SAT 98
[2017-03-23] MEDS: LEVOTHYROXINE 200 MCG TAB PO SCH (06:21)
[2017-03-23 06:44] LABS: HEMATOCRIT 28.5 % (37-47); MEAN CELL VOLUME 86.9 fL (80-100); MEAN CORPUSCULAR HGB CONC 32.3 g/dl (32-36); MEAN PLATELET VOLUME 11.7 fL (7.4-10.4); PLATELET COUNT 109 K/uL (130-400); RED BLOOD COUNT 3.28 M/uL (4.2-5.4); WHITE BLOOD COUNT 9.41 K/uL (4.8-10.8)
[2017-03-23 07:10] LABS: BUN/CREATININE RATIO 17.1 (10-20); CALCIUM 6.4 mg/dl (8.5-10.1); CREATININE 3.8 mg/dl (0.60-1.20); MAGNESIUM 1.8 mg/dl (1.8-2.4); PHOSPHORUS 2.8 mg/dl (2.5-4.9); POTASSIUM 4.7 mmol/L (3.5-5.1)
[2017-03-23 07:58] VITALS: BP 104/65; PULSE 90; TEMP 36.8; O2SAT 96
[2017-03-23] MEDS: CHECK FENTANYL PATCH PLACEMENT SCH ×3 (08:27→23:55)
[2017-03-23] MEDS: RASPBERRY SYRUP 5 ML UDP PO SCH ×3 (08:28→21:18)
[2017-03-23] MEDS: FAMOTIDINE 20 MG TAB PO SCH (08:29)
[2017-03-23] MEDS: VANCOMYCIN HCL 125 MG/2.5ML SOLN PO SCH ×3 (08:29→21:18)
[2017-03-23] MEDS ORDERED: VANCOMYCIN INJ 1,000 MG in SODIUM CHLORIDE 0.9% 250ML 250 ML IV SCH (08:30)
[2017-03-23] MEDS: LACTOBACILLUS ACIDOPHILUS (FLORANEX) TAB PO SCH (08:30)
[2017-03-23] MEDS: PANTOprazole SOD 40 MG TAB PO SCH (08:31)
[2017-03-23] MEDS: INSULIN DETEMIR FLEXPEN/FLEX TOUCH 100 UNITS/ML 3ML SC SCH ×2 (08:39→21:20)
[2017-03-23] MEDS: SODIUM CHLORIDE 0.9% 1000ML 1,000 ML IV SCH ×2 (08:55→18:49)
[2017-03-23] MEDS ORDERED: NURSING DECISION MEDICATION ORDER SCH (10:00)
[2017-03-23] MEDS ORDERED: FENTANYL 50 MCG/HR TDSY TD ONE (10:30)
[2017-03-23] MEDS ORDERED: FENTANYL PATCH REMOVE & WASTE SCH ×2 (10:30→20:00)
--- NOTE | 2017-03-23 10:34 | Pharmacy Progress Note ---
Glycemic Control Progress Note Date of Service Mar 23, 2017. Scope Glycemic Pharmacist consulted for glycemic control to write orders per [facility] inpatient glycemic control protocol. Objective Accuchecks BSG (last 24hrs): Test 03/22/17 11:38 03/22/17 15:13 03/22/17 16:47 03/22/17 20:12 Bedside Glucose 321 mg/dl (70-90) 351 mg/dl (70-90) 368 mg/dl (70-90) 288 mg/dl (70-90) Test 03/22/17 23:17 03/23/17 04:02 03/23/17 06:16 03/23/17 07:43 Bedside Glucose 202 mg/dl (70-90) 91 mg/dl (70-90) 121 mg/dl (70-90) Random Glucose 116 mg/dl (70-99) Recent Pertinent Medications The patient is currently receiving: * Basal insulin: Levemir 10 units in AM and 3 units in PM * Correctional Insulin: Novolog Correction per scale ACHS Goal Range: Low 140 mg/dL - High 180 mg/dL Correction Factor: 20 mg/dL/unit * Prandial insulin: Per carb ratio of 1 unit per 8 grams CHO consumed Outpatient Anti-Diabetic Meds Basal Insulin Assessment & Plan ASSESSMENT: * See progress note from 03/22/17 for more background info, in short: * Pt receiving SQ basal bolus insulin regimen for hyperglycemia secondary to baseline DM (basal insulin doses missed on admission and AM),stress/infection * Patient is currently receiving an average of 51 units of insulin per day * 13 units of basal insulin * 38 units of prandial/correctional insulin * BSGs ranging 91 - 368 mg/dl over the past 24hrs * Changes needed to insulin regimen: * AM Fasting BSG = 116 mg/dl. This is slightly below goal range for patient based on inpatient targets and co-morbidities. Therefore Basal insulin needs decreased. * Post-prandial BSGs are trending downwards throughout the day (insulin stacking) therefore need to loosen CF/CR * Total daily dose = 51 units. Per previous admission/glycemic consult data, this is likely too high. Decrease in total daily dose is needed * Additional notes / comments: Pt with severe hyperglycemia yesterday secondary to missing basal insulin 03/21 PM and 03/22 AM. Made up missed doses of basal insulin and bolused NovoLog Q4hrs yesterday. Hyperglycemia resolved today. Will resume outpatient dosing of basal insulin and bolus insulin per previous admission data. PLAN FOR INPATIENT GLYCEMIC CONTROL: * Basal insulin * Levemir 6 units SQ in AM + 3 units SQ in PM * Bolus insulin * NovoLog per scale ACHS or Q6hrs while NPO * Goal Range: Low 140 mg/dL - High 180 mg/dL * Correction Factor: 30 mg/dL/unit * Nutritional / Prandial insulin per carb ratio of 1 unit per 10 grams CHO consumed * Please note that the plan above was derived based on current level of insulin resistance and hospital stress. These recommendations are appropriate for inpatient admission only. Plan of care upon discharge will need to be reassessed to avoid potential outpatient hypo/hyperglycemia. Thank you.
[2017-03-23 11:45] VITALS: BP 105/62; PULSE 84; TEMP 36.9; O2SAT 97
[2017-03-23] MEDS: CEFEPIME IV 500 MG in DEXTROSE 5% 100ML 100 ML IV SCH (13:55)
[2017-03-23 16:00] VITALS: BP 102/51; PULSE 78; TEMP 37.2; O2SAT 98
--- NOTE | 2017-03-23 16:58 | Progress Note ---
Subjective Date of Service: Mar 23, 2017. Subjective Pt evaluation today including: conversation w/ patient, conversation w/ family , physical exam, chart review, lab review, review of studies, conversation w/ outside sales consultant, review of inpatient medication list More than 40 hours no fever, generally feeling okay, Daughter report urine still very dark and cloudy Problem List Medical Problems: (1) Acute renal failure Status: Acute (2) Sepsis Status: Acute (3) Sepsis Status: Acute (4) UTI (urinary tract infection) Status: Acute (5) UTI (urinary tract infection) Status: Acute Review of Systems Constitutional: + weakness, + fatigue, No fever, No chills, No sweats, No weight loss, No problem reported Eyes: No worsening of vision, No eye pain, No redness, No discharge, No diplopia ENT: No hearing loss, No unusual epistaxis, No nasal symptoms, No sore throat, No tinnitus, No dental problems, No trouble swallowing Respiratory: No cough, No sputum, No wheezing, No shortness of breath, No dyspnea on exertion, No dyspnea at rest, No hemoptysis Cardiac: No chest pain, No orthopnea, No PND, No edema, No claudication, No palpitations Abdomen: No pain, No nausea, No vomiting, No diarrhea, No constipation Musculoskeletal: No joint pain, No muscle pain, No swelling, No calf pain Female : No dysuria, No urinary frequency, No hematuria, No incontinence, No abnormal vaginal bleeding, No vaginal discharge Neurologic: No memory loss, No paralysis, No weakness, No numbness/tingling, No vertigo, No balance problems Psychiatric: No depression symptoms, No anhedonism, No anxiety, No insomnia, No substance abuse Heme: No abnormal bleeding/bruising, No clotting problems, No swollen lymph nodes, No night sweats Endo: No fatigue, No excessive thirst, No excessive urination Skin: No rash, No itch, No new/changing skin lesions, No color change, No bleeding Objective Vital Signs Date Time Temp Pulse Resp B/P (MAP) Pulse Ox O2 Delivery O2 Flow Rate FiO2 03/23/17 16:00 37.2 78 18 102/51 (68) 98 Room Air 03/23/17 15:42 Room Air 03/23/17 12:00 Room Air 03/23/17 11:45 36.9 84 20 105/62 (76) 97 03/23/17 08:00 Room Air 03/23/17 07:58 36.8 90 20 104/65 (78) 96 Room Air 03/23/17 05:14 36.9 82 20 95/60 (72) 98 Room Air 03/23/17 04:00 Room Air 03/23/17 00:01 Room Air 03/23/17 00:01 36.4 81 18 92/58 (69) 97 Room Air 03/22/17 20:00 Room Air 03/22/17 19:40 36.6 94 16 93/56 (68) 96 Room Air Physical Exam General Appearance: WD/WN, no apparent distress, + cachetic, + thin, + pertinent finding (frail chronically ill-looking) Eyes: normal inspection, PERRL, EOMI, sclerae normal ENT: normal ENT inspection, hearing grossly normal, pharynx normal Neck: supple, no adenopathy, thyroid normal, no JVD, no carotid bruits, trachea midline Respiratory/Chest: chest non-tender, normal breath sounds, no respiratory distress, no accessory muscle use, + decreased breath sounds Cardiovascular: regular rate, rhythm, no edema, no gallop, no JVD, no murmur Abdomen: normal bowel sounds, non tender, soft, no organomegaly, no pulsatile mass Extremities: normal range of motion, non-tender, normal inspection, no pedal edema, no calf tenderness, normal capillary refill, pelvis stable Neurologic/Psychiatric: 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, no motor/sensory deficits, alert, normal mood/affect, oriented x 3 Skin: normal color, warm/dry, no rash Lymphatic: no adenopathy Laboratory Results Last 24 Hours Test 03/22/17 20:12 03/22/17 23:17 03/23/17 04:02 03/23/17 06:16 Bedside Glucose 288 mg/dl 202 mg/dl 91 mg/dl White Blood Count 9.41 K/uL Red Blood Count 3.28 M/uL Hemoglobin 9.2 g/dL Hematocrit 28.5 % Mean Corpuscular Volume 86.9 fL Mean Corpuscular Hemoglobin 28.0 pg Mean Corpuscular Hemoglobin Concent 32.3 g/dl RDW Standard Deviation 57.9 fL RDW Coefficient of Variation 18.2 % Platelet Count 109 K/uL Mean Platelet Volume 11.7 fL Sodium Level 134 mmol/L Potassium Level 4.7 mmol/L Chloride Level 104 mmol/L Carbon Dioxide Level 21 mmol/L Anion Gap 9.0 mmol/L Blood Urea Nitrogen 65 mg/dl Creatinine 3.80 mg/dl Est Creatinine Clear Calc Drug Dose 10.3 ml/min Estimated GFR () 12.2 Estimated GFR (Non- 10.5 BUN/Creatinine Ratio 17.1 Random Glucose 116 mg/dl Calcium Level 6.4 mg/dl Phosphorus Level 2.8 mg/dl Magnesium Level 1.8 mg/dl Random Vancomycin Level 15.7 mcg/ml Test 03/23/17 07:43 03/23/17 11:43 Bedside Glucose 121 mg/dl 248 mg/dl Assessment and Plan 81 y/o female with PMHx of Renal Cell Carcinoma S/P L Nephrectomy (1997) , 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 Bacteremia with the gram-positive and gram-negative bacteria growth, with STREPTOCOCCUS SPECIES, we'll continue follow-up sensitivity Urosepsis POA Acute on chronic kidney failure likely prerenal dehydration, seem stable, we' ll request nephrology consult recent c diff History of renal cancer currently on chemotherapy, for renal cancer he follow- up with Dr. Lomeli in [facility] Hypomagnesemia, hyponatremia will follow-up Plan: continue IVF hydration Infectious disease input appreciated, continue current antibiotics organizational development director consulted Follow-up us renal, continue bush cefepime / oral vanco empiric for c dif Follow up Cx Follow-up nephrology input and infectious disease input GI and DVT prophylaxis is covered Discussed with patient and family, onset on questions Continued [facility] stay due to: multiple IV medications needed Discharge planning: home
[2017-03-23] MEDS ORDERED: FENTANYL 50 MCG/HR TDSY TD SCH (20:00)
[2017-03-23 20:11] VITALS: BP 118/67; PULSE 83; TEMP 37.4; O2SAT 95
[2017-03-24] VITALS (7 sets, daily range): BP systolic 108–132; BP diastolic 57–79; PULSE 68–83; TEMP 36.6–37.1; O2SAT 95–100
[2017-03-24] MEDS: SODIUM CHLORIDE 0.9% 1000ML 1,000 ML IV SCH ×2 (04:59→15:40)
[2017-03-24] MEDS: LEVOTHYROXINE 200 MCG TAB PO SCH (06:12)
[2017-03-24 06:47] LABS: HEMATOCRIT 27.7 % (37-47); MEAN CELL VOLUME 87.7 fL (80-100); MEAN CORPUSCULAR HEMOGLOBIN 28.2 pg (25-34); MEAN CORPUSCULAR HGB CONC 32.1 g/dl (32-36); MEAN PLATELET VOLUME 11.5 fL (7.4-10.4); PLATELET COUNT 112 K/uL (130-400); RED BLOOD COUNT 3.16 M/uL (4.2-5.4); WHITE BLOOD COUNT 8.84 K/uL (4.8-10.8)
[2017-03-24 07:17] LABS: BUN/CREATININE RATIO 20.5 (10-20); CREATININE 2.6 mg/dl (0.60-1.20); MAGNESIUM 1.7 mg/dl (1.8-2.4)
[2017-03-24] MEDS: VANCOMYCIN HCL 125 MG/2.5ML SOLN PO SCH ×3 (07:39→20:57)
[2017-03-24] MEDS: RASPBERRY SYRUP 5 ML UDP PO SCH ×3 (07:39→20:57)
[2017-03-24] MEDS: PANTOprazole SOD 40 MG TAB PO SCH (07:40)
[2017-03-24] MEDS: FAMOTIDINE 20 MG TAB PO SCH (07:40)
[2017-03-24] MEDS: CHECK FENTANYL PATCH PLACEMENT SCH ×2 (07:40→16:02)
[2017-03-24] MEDS: LACTOBACILLUS ACIDOPHILUS (FLORANEX) TAB PO SCH (07:40)
[2017-03-24] MEDS: INSULIN ASPART 100 UNITS/ML 3 ML PEN SC SCH ×4 (08:52→20:58)
[2017-03-24] MEDS: INSULIN DETEMIR FLEXPEN/FLEX TOUCH 100 UNITS/ML 3ML SC SCH ×2 (08:53→20:58)
[2017-03-24] MEDS ORDERED: CALCIUM GLUCONATE 10% 1,000 MG in SODIUM CHLORIDE 0.9% 50ML 50 ML IV STA (09:49)
[2017-03-24] MEDS ORDERED: VANCOMYCIN INJ 1,000 MG in SODIUM CHLORIDE 0.9% 250ML 250 ML IV SCH (10:00)
--- NOTE | 2017-03-24 11:36 | Pharmacy Progress Note ---
Glycemic Control Progress Note Date of Service Mar 24, 2017. Scope Glycemic Pharmacist consulted for glycemic control to write orders per [facility] inpatient glycemic control protocol. Objective Accuchecks BSG (last 24hrs): Test 03/23/17 11:43 03/23/17 16:51 03/23/17 20:25 03/24/17 06:10 Bedside Glucose 248 mg/dl (70-90) 204 mg/dl (70-90) 207 mg/dl (70-90) Random Glucose 135 mg/dl (70-99) Test 03/24/17 07:30 Bedside Glucose 129 mg/dl (70-90) Recent Pertinent Medications The patient is currently receiving: * Basal insulin: Levemir 6 units in AM and 3 units in PM * Correctional Insulin: Novolog Correction per scale ACHS Goal Range: Low 140 mg/dL - High 180 mg/dL Correction Factor: 25 mg/dL/unit * Prandial insulin: Per carb ratio of 1 unit per 9 grams CHO consumed Outpatient Anti-Diabetic Meds Basal Insulin monotherapy Assessment & Plan ASSESSMENT: * See progress note from 03/22/17 for more background info, in short: * Pt receiving SQ basal bolus insulin regimen for hyperglycemia secondary to baseline DM (basal insulin doses missed on admission and AM),stress/infection * Patient is currently receiving average of ~ 40 units of insulin per day * BSGs 121, 248, 204, 207 over the past 24hrs * Changes needed to insulin regimen: * AM Fasting BSG = 129 mg/dl. This in goal range for patient based on inpatient targets and co-morbidities. Pt currently ordered her outpatient dosing of basal insulin. No changes needed. * Post-prandial BSGs are elevated. Per previous admissions current CF/CR has worked well. Will continue these parameters but lower goal range slightly. * 03/23 Total daily dose = 26 units. This c/w dosing used in previous admissions /glycemic consults which yielded adequate glycemic control. PLAN FOR INPATIENT GLYCEMIC CONTROL: * Basal insulin: No change * Levemir 6 units SQ in AM + 3 units SQ in PM * Bolus insulin * NovoLog per scale ACHS or Q6hrs while NPO * Goal Range: -L-o-w- -1-4-0- -m-g--/--d-L- --- -H-i-g-h- -1-8-0- -m-g--/- -d-L- --> lower to 140 - 160mg/dl * Correction Factor: 25 mg/dL/unit * Nutritional / Prandial insulin per carb ratio of 1 unit per 9 grams CHO consumed * Please note that the plan above was derived based on current level of insulin resistance and hospital stress. These recommendations are appropriate for inpatient admission only. Plan of care upon discharge will need to be reassessed to avoid potential outpatient hypo/hyperglycemia. Thank you.
--- NOTE | 2017-03-24 12:24 | Nephrology Consultation ---
Nephrology Consultation Date & Providers Date of Consultation: Mar 24, 2017. Primary Care Provider: Kamini Dunn M.D. 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 Nephrologic consult was requested as patient was found to have acute kidney injury. Electronic medical records including labs and imaging are not reviewed in detail during patient's visit. History was mainly obtained by the record review and from her daughter Naz at bedside who is a nurse educator at [employer]. Chloé Was suffering from anorexia, nausea, fever and overall feeling poorly for 2 days. In the ED she was found to be hypotensive and found to have recurrent urinary tract infection, admitted at and started on empiric antibiotic , currently on cefepime and vancomycin. Vancomycin trough level has been therapeutic. She was just recently admitted to the hospital in January with another episode of am urinary tract infection and C diff colitis. Her blood culture came back positive for Streptococcus and E coli. On admission she was found to have acute kidney injury her creatinine was 4.0, other electrolyte acceptable. At home she was having poor p.o. intake but she continued on losartan and Lasix. She was significantly hypotensive on admission. She has been on IV hydration over last 2 days, her blood pressure improved, renal function started to improve and creatinine was 2.6 this morning. Renal ultrasound showed no hydronephrosis but has evidence of right renal atrophy, 11.1 centimeter size. She has been making decent amount of urine, her urine color cleared up compared to very dark on admission. She still continues to feel tired, appetite is poor. Denies any shortness of breath or chest pain. No fever overnight. She was initially diagnosed with left renal cell carcinoma in 1997, status post left nephrectomy. At that time the cancer was within the renal capsule, she did not require any radiation or chemotherapy. She was otherwise doing well for 10 years. since 2010 she was found to have multiple metastatic from foci in lung, pancreas and bony metastasis however biopsy was ordered is inconclusive until she had a heat biopsy in 2016 which confirmed renal cell carcinoma. She is currently on Opdivo and follows with [facility]. Allergies Coded Allergies: Adhesives (Verified Allergy, Mild, LOCAL SKIN IRRITATION, BLISTERS, ) Inpatient Medications Current Inpatient Medications Medications (Trade) Dose Ordered Sig/Suleiman Route Start Time Stop Time Status Last Admin Dose Admin Sodium Chloride 1,000 ml @ 100 mls/hr Q10H IV 03/21/17 17:00 04/20/17 16:59 03/24/17 04:59 100 MLS/HR Acetaminophen (Tylenol Tab) 650 mg Q4H PRN PO 03/21/17 15:45 04/20/17 15:44 Al Hydrox/Mg Hydrox/Simethicone (Maalox Max Susp) 15 ml Q4H PRN PO 03/21/17 15:45 04/20/17 15:44 Magnesium Hydroxide (Milk Of Magnesia Susp) 30 ml Q12H PRN PO 03/21/17 15:45 04/20/17 15:44 Ondansetron HCl (Zofran Inj) 4 mg Q6H PRN IV 03/21/17 15:45 04/20/17 15:44 Polyethylene (Miralax Powder Packet) 17 gm DAILY PRN PO 03/21/17 15:45 04/20/17 15:44 Insulin Aspart (novoLOG ASPART) SLIDING SCALE If C... ACHS SC 03/21/17 16:00 04/20/17 15:59 03/24/17 08:52 3 UNITS Glucose (Glucose 40% Gel) 15-30 GRAMS 15 GRAMS... UD PRN PO 03/21/17 15:45 04/20/17 15:44 Glucose (Glucose Chew Tab) 4-8 Tablets 4 Tabl... UD PRN PO 03/21/17 15:45 04/20/17 15:44 Dextrose (Dextrose 50% 50ML Syringe) 25-50ML OF 50% DW IV FOR... UD PRN IV 03/21/17 15:45 04/20/17 15:44 Glucagon (Glucagon Inj) 1 mg UD PRN SQ 03/21/17 15:45 04/20/17 15:44 Acetaminophen/ Hydrocodone Bitart (Peotone 7.5/325 Tab) 1 tab for mild-moderate pain (p... Q4 PRN PO 03/21/17 15:45 04/04/17 15:44 03/22/17 09:05 1 TAB Levothyroxine Sodium (Synthroid Tab) 200 mcg DAILYBB PO 03/22/17 06:30 04/21/17 06:29 03/24/17 06:12 200 MCG Ondansetron HCl (Zofran Tab) 8 mg Q8 PRN PO 03/21/17 15:45 04/20/17 15:44 Senna (Senokot Tab) 8.6 mg DAILY PRN PO 03/21/17 15:45 04/20/17 15:44 Lactobacillus Acidophilus (Floranex Tab) 1 tab DAILY PO 03/22/17 09:00 04/21/17 08:59 03/24/17 07:40 1 TAB Cefepime HCl 500 mg/Dextrose 105.65 ml @ 200 mls/ hr DAILY@1400 IV 03/22/17 14:00 03/31/17 13:59 03/23/17 13:55 200 MLS/HR Vancomycin HCl (Vancomycin Oral Soln) 125 mg TID PO 03/21/17 21:00 04/04/17 20:59 03/24/17 07:39 125 MG Famotidine (Pepcid Tab) 20 mg QAM PO 03/22/17 09:00 04/21/17 08:59 Miscellaneous Information (Check Fentanyl Patch Placement) 1 ea QS N/A 03/22/17 17:00 04/21/17 16:59 03/24/17 07:40 1 EA Raspberry (Raspberry Syrup 5ml Cup) 5 ml TID PO 03/21/17 21:00 04/04/17 20:59 03/24/17 07:39 5 ML Acetaminophen 650 mg/Empty Bag 65 ml @ 260 mls/hr Q6H PRN IV 03/21/17 20:45 04/20/17 20:44 Cefepime HCl (Consult) 1 ea UD PRN N/A 03/21/17 21:15 04/20/17 21:14 Pantoprazole Sodium (Protonix Tab) 40 mg QAM PO 03/22/17 09:00 04/21/17 08:59 03/24/17 07:40 40 MG Vancomycin HCl (Consult) 1 ea UD PRN N/A 03/22/17 08:45 04/21/17 08:44 Miscellaneous Information (Consult Glycemic Management Pharmacy) 1 ea UD PRN N/A 03/22/17 12:14 04/21/17 12:13 Insulin Detemir (Levemir Flexpen/ FlexTouch) 6 unit QAM SC 03/23/17 09:00 04/22/17 08:59 03/24/17 08:53 6 UNIT Insulin Detemir (Levemir Flexpen/ FlexTouch) 3 unit HS SC 03/23/17 21:00 04/22/17 20:59 03/23/17 21:20 3 UNIT Fentanyl (Duragesic Patch) 50 mcg Q3D@0630 TD 03/26/17 06:30 04/09/17 06:29 Miscellaneous (Fentanyl Patch Remove & Waste) 1 ea Q3D@0629 N/A 03/26/17 06:29 04/25/17 06:28 Vancomycin HCl 1000 mg/Sodium Chloride 270 ml @ 125 mls/hr 1000 IV 03/24/17 10:00 03/24/17 12:10 03/24/17 09:40 125 MLS/HR Family History Patient reports no known family medical history. Social History Smoking Status: Never Smoker Smokeless Tobacco Use: No Alcohol Use: none Drug Use: none Marital Status: Occupation: retired Review of Systems A complete review of systems was performed. Pertinent positives are noted above. All other systems are negative. Physical Exam Date Time Temp Pulse Resp B/P (MAP) Pulse Ox O2 Delivery O2 Flow Rate FiO2 03/24/17 11:54 36.9 83 24 122/57 (78) 100 Room Air 03/24/17 08:00 Room Air 03/24/17 07:55 36.7 75 18 108/66 (80) 96 Room Air 03/24/17 04:10 36.9 78 18 117/70 (86) 96 Room Air 03/24/17 04:00 Room Air 03/24/17 00:14 36.8 74 18 132/79 (96) 95 Room Air 03/24/17 00:01 Room Air 03/23/17 20:11 37.4 83 20 118/67 (84) 95 Room Air 03/23/17 20:00 Room Air 03/23/17 16:00 37.2 78 18 102/51 (68) 98 Room Air 03/23/17 15:42 Room Air GENERAL: Elderly female AAA x 3, pleasant, pale, ill-appearing, not in any distress. HEENT: Atraumatic, normocephalic. NECK: Supple, no JVD, no carotid bruit appreciated. ENT: No sinus tenderness MOUTH and THROAT: Moist oral mucosa, no oral ulcer or pharyngeal erythema RESPIRATORY: Normal breathing efforts, no accessory muscle use, clear to auscultation bilaterally, no wheezes or rales. CARDIOVASCULAR: S1, S2 normal, rate rhythm regular. ABDOMEN: Soft, nontender, positive bowel sound. MUSCULOSKELETAL: No joint swelling, erythema or tenderness. Normal range of motion. SKIN: No skin rash EXTREMITY: No lower extremity edema NEURO: No gross focal neurological deficit, speech fluent. PSYCHIATRY: Normal mood and judgment Laboratory Results Last 24 Hours Test 03/23/17 16:51 03/23/17 20:25 03/24/17 06:10 03/24/17 07:30 Bedside Glucose 204 mg/dl 207 mg/dl 129 mg/dl White Blood Count 8.84 K/uL Red Blood Count 3.16 M/uL Hemoglobin 8.9 g/dL Hematocrit 27.7 % Mean Corpuscular Volume 87.7 fL Mean Corpuscular Hemoglobin 28.2 pg Mean Corpuscular Hemoglobin Concent 32.1 g/dl RDW Standard Deviation 58.9 fL RDW Coefficient of Variation 18.1 % Platelet Count 112 K/uL Mean Platelet Volume 11.5 fL Sodium Level 138 mmol/L Potassium Level 4.0 mmol/L Chloride Level 109 mmol/L Carbon Dioxide Level 20 mmol/L Anion Gap 9.0 mmol/L Blood Urea Nitrogen 53 mg/dl Creatinine 2.60 mg/dl Est Creatinine Clear Calc Drug Dose 14.3 ml/min Estimated GFR () 19.3 Estimated GFR (Non- 16.6 BUN/Creatinine Ratio 20.5 Random Glucose 135 mg/dl Calcium Level 6.0 mg/dl Magnesium Level 1.7 mg/dl Random Vancomycin Level 19.6 mcg/ml Test 03/24/17 09:39 03/24/17 09:42 03/24/17 11:45 Ionized Calcium 0.85 mmol/l Bedside Glucose 183 mg/dl Impression (1) Acute renal failure (2) UTI (urinary tract infection) (3) Sepsis (4) Diabetes (5) Hypertension (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 She was found to have the blood culture positive for Streptococcus and E coli, currently on cefepime and vancomycin. Add baseline her creatinine is 1.5-1.7, on admission she was found to have acute kidney injury and hypocalcemia, creatinine was 4 and calcium was them 7.8. She was significantly hypotensive on admission with some poor p.o. intake the for 2 days before admission as well as concomitant use of Lasix and losartan. Acute kidney injury most likely hemodynamically mediated, started to improve with volume depletion, creatinine was 2.6 this morning, other electrolyte improving. Her blood pressure improved and has been stable. Overall she continues to feel tired. Has chronic anemia probably secondary to chronic disease with underlying metastatic malignancy. Recommendations --calcium gluconate 1 gram IV x1 dose -- will check ionized calcium, vitamin-D and PTH --Agree with continuing on IV fluid for now, as renal function rapidly improving, if patient's p.o. intake improve may consider discontinuing IV fluid --Continue to monitor renal function with daily renal panel -- patient's daughter mentioned that patient usually does not drink enough liquids, wonder whether she should get 1 liter of IV fluid instead of 500 mL when she gets her IV infusion of Opdivo every 2 weeks, which seems reasonable Thank you for allowing me to participate in your patient's care. It was a pleasure to see Chloé This chart was completed utilizing [employer] Speech and voice recognition software. Grammatical errors, random word insertions, pronoun errors and incomplete sentences are occasional consequences of this system. Any questions or concerns about the content, text or information contained within the body of this dictation should be addressed directly to the physician for clarification.
[2017-03-24] MEDS: CEFEPIME IV 500 MG in DEXTROSE 5% 100ML 100 ML IV SCH (14:17)
--- NOTE | 2017-03-24 14:19 | Pharmacy Progress Note ---
Pharmacy Abx Dose Progress Nt Date of Service Mar 24, 2017. Pharmacy Dosing Scope The patient is currently receiving the following antimicrobial agents per Pharmacy consult for bacteremia: Vancomycin 1000 mg (~15mg/kg) IV x 1 dose on 03/23/17 due to the patient being in [place] Objective Height (Feet): 5 Height (Inches): 0.00 Weight (Kilograms): 65.600 Vital Signs (Past 12Hrs) Vital Signs Past 12 Hours Date Time Temp Pulse Resp B/P (MAP) Pulse Ox O2 Delivery O2 Flow Rate FiO2 03/24/17 11:54 36.9 83 24 122/57 (78) 100 Room Air 03/24/17 08:00 Room Air 03/24/17 07:55 36.7 75 18 108/66 (80) 96 Room Air 03/24/17 04:10 36.9 78 18 117/70 (86) 96 Room Air 03/24/17 04:00 Room Air Lab Results (24Hrs) Laboratory Tests (24 Hours) Test 03/24/17 06:10 White Blood Count 8.84 K/uL (4.8-10.8) Micro Results Date/Time Source Procedure Growth Status 03/21/17 13:30 Blood Blood Culture - Preliminary NO GROWTH TO DATE. Resulted 03/21/17 13:20 Blood Blood Culture - Preliminary Enterococcus Faecalis Escherichia Coli Resulted 03/22/17 10:52 Urine,Catheterized Urine Culture - Final NO GROWTH - LESS THAN 1,000 COLONIES/ML Complete 03/21/17 13:12 Urine,Catheterized Urine Culture - Final THREE TYPES OF ORGANISMS PRESENT, ALL... Complete PEC #: [id number] SKINNY: 03/21/17-1320 STATUS: RES REQ # : [id number] RECD: 03/21/17-4 [facility] DR: Mitesh Fajardo M.D. SOURCE: BLOOD ENTR: 03/21/17-1300 [facility] DR: Kamini Dunn M.D. [facility]: ORDERED: BLOOD CULTURE Procedure Result Verified Site BLD CULT Preliminary 03/24/17 Organism 1 ENTEROCOCCUS FAECALIS SENS SENSITIVITY TO FOLLOW Organism 2 ESCHERICHIA COLI SENS SENSITIVITY TO FOLLOW Phoned Positive Blood Culture Gram Stain Report to AZIZA HINES on 03/22/17 At 0950 By STPEHANIE. Results were verbalized back to STEPHANIE. Phoned Positive Blood Culture Gram Stain Report to REID JOLLY on 03/22/17 At 0704 By JAMES. Results were verbalized back to JAMES. E FAECALIS E COLI M.I.C. RX M.I.C. RX --------- ------ --------- ------ TRIMET/SULFA <=2/38 S AMPICILLIN <=2 S >16 R AMPICILLIN/SUL 16/8 I CEFAZOLIN <=8 S CEFOTAXIME <=2 S CEFTRIAXONE <=1 S CEFEPIME <=4 S CEFUROXIME <=4 S IMIPENEM <=1 S GENT SYNERGY <=500 S VANCOMYCIN 1 S PENICILLIN 2 S GENTAMICIN <=4 S TOBRAMYCIN <=4 S AMIKACIN <=16 S CIPROFLOXACIN <=1 S LEVOFLOXACIN <=2 S ERTAPENEM <=1 S DAPTOMYCIN 2 S PIP/TAZO <=16 S STREP SYNERGY >1000 R BLD CULT Preliminary (continued) 03/24/17 1. ENTEROCOCCUS FAECALIS Target Route Dose RX AB Cost M.I.C. IQ ------ ----- ------ -- ------ -------- - ------ AMPICILLIN S <=2 GENT SYNERGY S <=500 VANCOMYCIN S 1 PENICILLIN S 2 DAPTOMYCIN S 2 STREP SYNERGY R >1000 Streptomycin Synergy Screen R Gentamicin Synergy Screen S 2. ESCHERICHIA COLI Target Route Dose RX AB Cost M.I.C. IQ ------ ----- ------ -- ------ -------- - ------ TRIMET/SULFA S <= AMPICILLIN R >16 AMPICILLIN/SUL I 16/8 CEFAZOLIN S <=8 CEFOTAXIME S <=2 CEFTRIAXONE S <=1 CEFEPIME S <=4 CEFUROXIME S <=4 IMIPENEM S <=1 GENTAMICIN S <=4 TOBRAMYCIN S <=4 AMIKACIN S <=16 CIPROFLOXACIN S <=1 LEVOFLOXACIN S <=2 ERTAPENEM S <=1 PIP/TAZO S <=16 S = SENSITIVE I = INTERMEDIATE R = RESISTANT Risk Factors for Resistance * Hospitalization for 48 hours or more within the past 90 days Assessment & Plan Assessment 81 year old female receiving Vancomycin for treatment of gram positive bacteremia Day # 3 of antimicrobial therapy Plan Vancomycin IV * Random level of 19.6 mcg/mL is therapeutic. * Continue pulse dose of 1000 mg (~15mg/kg) IV x 1 dose on 03/24/17 @1000 * Patient remains in [place]; therefore, Vancomycin re-dosing is based upon serum concentrations until renal function returns to baseline (serum creat. 1.5-1.9mg/ dL) or stabilizes * Goal trough level for bacteremia : 15 to 20 mcg/mL * Random level ordered for: 03/25/17 with AM labs * Pharmacy to re-dose once serum concentrations are less than therapeutic * Less than traditional dose and/or extended dosing interval selected due to likelihood of drug accumulation in [place]. Pharmacy will continue to follow and will adjust dose/frequency as necessary. Thank you.
--- NOTE | 2017-03-24 15:13 | Progress Note ---
Subjective Date of Service: Mar 24, 2017. Subjective Pt evaluation today including: conversation w/ patient, conversation w/ family , chart review, lab review, review of studies, conversation w/ safety and health consultant, review of inpatient medication list Feeling okay, no spiking fever, eating fair, Problem List Medical Problems: (1) Acute renal failure Status: Acute (2) Sepsis Status: Acute (3) Sepsis Status: Acute (4) UTI (urinary tract infection) Status: Acute (5) UTI (urinary tract infection) Status: Acute Review of Systems Constitutional: + weakness, No fever, No chills, No sweats, No weight loss, No fatigue, No problem reported Eyes: No worsening of vision, No eye pain, No redness, No discharge, No diplopia ENT: No hearing loss, No unusual epistaxis, No nasal symptoms, No sore throat, No tinnitus, No dental problems, No trouble swallowing Respiratory: No cough, No sputum, No wheezing, No shortness of breath, No dyspnea on exertion, No dyspnea at rest, No hemoptysis Cardiac: No chest pain, No orthopnea, No PND, No edema, No claudication, No palpitations Abdomen: No pain, No nausea, No vomiting, No diarrhea, No constipation Musculoskeletal: No joint pain, No muscle pain, No swelling, No calf pain Female : No dysuria, No urinary frequency, No hematuria, No incontinence, No abnormal vaginal bleeding, No vaginal discharge Neurologic: No memory loss, No paralysis, No weakness, No numbness/tingling, No vertigo, No balance problems Psychiatric: No depression symptoms, No anhedonism, No anxiety, No insomnia, No substance abuse Heme: No abnormal bleeding/bruising, No clotting problems, No swollen lymph nodes, No night sweats Endo: No fatigue, No excessive thirst, No excessive urination Skin: No rash, No itch, No new/changing skin lesions, No color change, No bleeding Objective Vital Signs Date Time Temp Pulse Resp B/P (MAP) Pulse Ox O2 Delivery O2 Flow Rate FiO2 03/24/17 14:48 36.6 77 20 130/73 (92) 99 Room Air 03/24/17 11:54 36.9 83 24 122/57 (78) 100 Room Air 03/24/17 08:00 Room Air 03/24/17 07:55 36.7 75 18 108/66 (80) 96 Room Air 03/24/17 04:10 36.9 78 18 117/70 (86) 96 Room Air 03/24/17 04:00 Room Air 03/24/17 00:14 36.8 74 18 132/79 (96) 95 Room Air 03/24/17 00:01 Room Air 03/23/17 20:11 37.4 83 20 118/67 (84) 95 Room Air 03/23/17 20:00 Room Air 03/23/17 16:00 37.2 78 18 102/51 (68) 98 Room Air 03/23/17 15:42 Room Air Physical Exam General Appearance: WD/WN, no apparent distress, + pertinent finding (sitting up in chair) Eyes: normal inspection, PERRL, EOMI, sclerae normal ENT: normal ENT inspection, hearing grossly normal, pharynx normal Neck: supple, no adenopathy, thyroid normal, no JVD, no carotid bruits, trachea midline Respiratory/Chest: chest non-tender, lungs clear, normal breath sounds, no respiratory distress, no accessory muscle use Cardiovascular: regular rate, rhythm, no edema, no gallop, no JVD, no murmur Abdomen: normal bowel sounds, non tender, soft, no organomegaly, no pulsatile mass Extremities: normal range of motion, non-tender, normal inspection, no pedal edema, no calf tenderness, normal capillary refill, pelvis stable 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/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: 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, no motor/sensory deficits, alert, normal mood/affect, oriented x 3 Skin: normal color, warm/dry, no rash Lymphatic: no adenopathy Laboratory Results Last 24 Hours Test 03/23/17 16:51 03/23/17 20:25 03/24/17 06:10 03/24/17 07:30 Bedside Glucose 204 mg/dl 207 mg/dl 129 mg/dl White Blood Count 8.84 K/uL Red Blood Count 3.16 M/uL Hemoglobin 8.9 g/dL Hematocrit 27.7 % Mean Corpuscular Volume 87.7 fL Mean Corpuscular Hemoglobin 28.2 pg Mean Corpuscular Hemoglobin Concent 32.1 g/dl RDW Standard Deviation 58.9 fL RDW Coefficient of Variation 18.1 % Platelet Count 112 K/uL Mean Platelet Volume 11.5 fL Sodium Level 138 mmol/L Potassium Level 4.0 mmol/L Chloride Level 109 mmol/L Carbon Dioxide Level 20 mmol/L Anion Gap 9.0 mmol/L Blood Urea Nitrogen 53 mg/dl Creatinine 2.60 mg/dl Est Creatinine Clear Calc Drug Dose 14.3 ml/min Estimated GFR () 19.3 Estimated GFR (Non- 16.6 BUN/Creatinine Ratio 20.5 Random Glucose 135 mg/dl Calcium Level 6.0 mg/dl Magnesium Level 1.7 mg/dl Random Vancomycin Level 19.6 mcg/ml Test 03/24/17 09:39 03/24/17 09:42 03/24/17 11:45 Ionized Calcium 0.85 mmol/l Bedside Glucose 183 mg/dl Assessment and Plan 81 y/o female with PMHx of Renal Cell Carcinoma S/P L Nephrectomy (1997) , 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 , S/P radiation to hip and left humerous / pathological fracture in left humerus., currently on Opdivo recently had pneumonia / c diff also had Hx of DVT S/P bleeding on coumadin currently SCD boots / family refused heparin SQ Sepsis, possible septic shock, with fever and hypotension , upon admission Possible from UTI UA looks like UTI, urine culture has 3 different kind of bacteria possible contamination Bacteremia with Enterococcus faecalis, and Escherichia coli,continue vancomycin , discontinue cefepime Urosepsis POA Acute on chronic kidney failure likely prerenal dehydration, significant improving History of renal cancer currently on chemotherapy, for renal cancer he follow- up with Dr. Lomeli in [facility] Hypomagnesemia, hyponatremia will follow-up Plan: continue IVF hydration Infectious disease input appreciated, continue Vanco, will discussed with infectious disease to adjust to oral medicine to home tomorrow Follow-up us renal, continue bush oral vanco empiric for c diff Will discussed with infectious disease for the home antibiotics GI and DVT prophylaxis is covered Discussed with patient and family, onset on questions Possible discharge tomorrow after figuring out oral antibiotic to home with the infectious disease Continued [facility] stay due to: multiple IV medications needed Discharge planning: home
[2017-03-24 17:57] LABS: MAGNESIUM 1.7 mg/dl (1.8-2.4); POTASSIUM 4.6 mmol/L (3.5-5.1)
[2017-03-24] MEDS ORDERED: NURSING VERBAL MED ORDER ONE (18:45)
[2017-03-24] MEDS ORDERED: POTASSIUM PHOSPHATE INJ 15 MMOL in SODIUM CHLORIDE 0.9% 250ML 250 ML IV SCH (19:00)
[2017-03-24] MEDS ORDERED: MAGNESIUM SULFATE 1GM / D5W 1 GM in PREMIXED IN D5W 100 ML IV SCH (19:00)
[2017-03-25] VITALS (9 sets, daily range): BP systolic 117–163; BP diastolic 58–79; PULSE 79–109; TEMP 36.5–37.5; O2SAT 94–98
[2017-03-25] MEDS: SODIUM CHLORIDE 0.9% 1000ML 1,000 ML IV SCH ×3 (00:51→20:24)
[2017-03-25] MEDS: CHECK FENTANYL PATCH PLACEMENT SCH ×3 (00:51→16:25)
[2017-03-25] MEDS: LEVOTHYROXINE 200 MCG TAB PO SCH (06:05)
[2017-03-25] MEDS: INSULIN ASPART 100 UNITS/ML 3 ML PEN SC SCH ×4 (06:30→21:34)
[2017-03-25 07:59] LABS: BUN/CREATININE RATIO 20.1 (10-20); CREATININE 1.9 mg/dl (0.60-1.20); POTASSIUM 4.3 mmol/L (3.5-5.1)
[2017-03-25 08:00] LABS: CALCIUM 6.4 mg/dl (8.5-10.1); PHOSPHORUS 2.5 mg/dl (2.5-4.9)
[2017-03-25] MEDS ORDERED: ERGOCALCIFEROL 50,000 INTER.UNIT CAP PO SCH (09:00)
[2017-03-25] MEDS: CALCITRIOL 0.25 MCG CAP PO SCH (09:00)
[2017-03-25] MEDS: CEPHALEXIN MONOHYDRATE 250 MG CAP PO SCH ×2 (09:00→21:32)
[2017-03-25] MEDS: LACTOBACILLUS ACIDOPHILUS (FLORANEX) TAB PO SCH (09:00)
[2017-03-25] MEDS: PANTOprazole SOD 40 MG TAB PO SCH (09:00)
[2017-03-25] MEDS ORDERED: VANCOMYCIN INJ 1,000 MG in SODIUM CHLORIDE 0.9% 250ML 250 ML IV SCH (09:00)
[2017-03-25] MEDS: FAMOTIDINE 20 MG TAB PO SCH (09:00)
[2017-03-25] MEDS ORDERED: CALCIUM GLUCONATE 10% 1,000 MG in SODIUM CHLORIDE 0.9% 50ML 50 ML IV ONE (09:00)
[2017-03-25] MEDS: ONDANSETRON INJ 2 MG/ML 2 ML VIAL IV PRN (09:09)
[2017-03-25] MEDS: INSULIN DETEMIR FLEXPEN/FLEX TOUCH 100 UNITS/ML 3ML SC SCH ×2 (10:08→21:35)
--- NOTE | 2017-03-25 11:09 | Nephrology Progress Note ---
Nephrology Progress Note Date of Service Mar 25, 2017. Chief Complaint Evaluation and management for acute kidney injury with history of chronic kidney disease and solitary right kidney Sabas Luevano was seen examined in her room this morning with her daughters at bedside. She has been having nausea and stomach upset since this morning, no episode of vomiting. Blood pressure has been normal. Bedside blood glucose was normal. No fever or chills. Denies any chest pain or shortness of breath. Denies headache or dizziness. Denies dysuria or abdominal pain. Renal function continues to improve, creatinine 1.9 this morning, has been having decent urine output. Review of Systems A complete review of systems was performed. Pertinent positives are noted above. All other systems are negative. Vital Signs Last 8 Hrs Date Time Temp Pulse Resp B/P (MAP) Pulse Ox O2 Delivery O2 Flow Rate FiO2 03/25/17 09:38 37.2 109 163/75 (104) 03/25/17 08:00 Room Air 03/25/17 07:43 37.5 92 20 159/79 (105) 96 Room Air 03/25/17 04:00 Room Air 03/25/17 04:00 36.5 79 16 135/65 (88) 98 Last Recorded Weight Weight (Kilograms): 68.000 Physical Exam GENERAL: Elderly female, AAA x 3, pleasant, pale, ill-appearing, not in any distress. NECK: Supple, no JVD. RESPIRATORY: Normal breathing efforts, no accessory muscle use, clear to auscultation bilaterally, no wheezes or rales. CARDIOVASCULAR: S1, S2 normal, rate rhythm regular. EXTREMITY: No lower extremity edema NEURO: speech fluent. PSYCHIATRY: Normal mood and judgment Family History Patient reports no known family medical history. Social History Smoking Status: Never smoker Smokeless Tobacco Use: No Alcohol Use: none Drug Use: none Marital Status: Occupation: retired Laboratory Results Past 24 Hours 03/24/17 17:27 03/25/17 06:17 Test 03/24/17 11:45 03/24/17 16:30 03/24/17 17:27 03/24/17 20:52 Bedside Glucose 183 mg/dl (70-90) 153 mg/dl (70-90) 131 mg/dl (70-90) Phosphorus Level 2.0 mg/dl (2.5-4.9) Magnesium Level 1.7 mg/dl (1.8-2.4) 25-Hydroxy Vitamin D Total 16.4 ng/ml (30-100) Parathyroid Hormone (Intact) 685.0 pg/mL (11.1-79.5) Test 03/25/17 06:17 03/25/17 07:59 Anion Gap 11.0 mmol/L (3-11) Est Creatinine Clear Calc Drug Dose 20.0 ml/min Estimated GFR () 28.2 Estimated GFR (Non- 24.3 BUN/Creatinine Ratio 20.1 (10-20) Calcium Level 6.4 mg/dl (8.5-10.1) Phosphorus Level 2.5 mg/dl (2.5-4.9) Albumin 1.8 gm/dl (3.4-5.0) Random Vancomycin Level 24.7 mcg/ml Bedside Glucose 158 mg/dl (70-90) Allergies Coded Allergies: Adhesives (Verified Allergy, Mild, LOCAL SKIN IRRITATION, BLISTERS, ) Medications Current Inpatient Medications Medications (Trade) Dose Ordered Sig/Suleiman Route Start Time Stop Time Status Last Admin Dose Admin Sodium Chloride 1,000 ml @ 100 mls/hr Q10H IV 03/21/17 17:00 04/20/17 16:59 03/25/17 10:51 100 MLS/HR Acetaminophen (Tylenol Tab) 650 mg Q4H PRN PO 03/21/17 15:45 04/20/17 15:44 Al Hydrox/Mg Hydrox/Simethicone (Maalox Max Susp) 15 ml Q4H PRN PO 03/21/17 15:45 04/20/17 15:44 Magnesium Hydroxide (Milk Of Magnesia Susp) 30 ml Q12H PRN PO 03/21/17 15:45 04/20/17 15:44 Ondansetron HCl (Zofran Inj) 4 mg Q6H PRN IV 03/21/17 15:45 04/20/17 15:44 03/25/17 09:09 4 MG Polyethylene (Miralax Powder Packet) 17 gm DAILY PRN PO 03/21/17 15:45 04/20/17 15:44 Insulin Aspart (novoLOG ASPART) SLIDING SCALE If C... ACHS SC 03/21/17 16:00 04/20/17 15:59 6/25/17 17:54 3 UNITS Glucose (Glucose 40% Gel) 15-30 GRAMS 15 GRAMS... UD PRN PO 03/21/17 15:45 04/20/17 15:44 Glucose (Glucose Chew Tab) 4-8 Tablets 4 Tabl... UD PRN PO 03/21/17 15:45 04/20/17 15:44 Dextrose (Dextrose 50% 50ML Syringe) 25-50ML OF 50% DW IV FOR... UD PRN IV 03/21/17 15:45 04/20/17 15:44 Glucagon (Glucagon Inj) 1 mg UD PRN SQ 03/21/17 15:45 04/20/17 15:44 Acetaminophen/ Hydrocodone Bitart ([place] 7.5/325 Tab) 1 tab for mild-moderate pain (p... Q4 PRN PO 03/21/17 15:45 04/04/17 15:44 03/22/17 09:05 1 TAB Levothyroxine Sodium (Synthroid Tab) 200 mcg DAILYBB PO 03/22/17 06:30 04/21/17 06:29 03/25/17 06:05 200 MCG Ondansetron HCl (Zofran Tab) 8 mg Q8 PRN PO 03/21/17 15:45 04/20/17 15:44 Senna (Senokot Tab) 8.6 mg DAILY PRN PO 03/21/17 15:45 04/20/17 15:44 Lactobacillus Acidophilus (Floranex Tab) 1 tab DAILY PO 03/22/17 09:00 04/21/17 08:59 03/24/17 07:40 1 TAB Famotidine (Pepcid Tab) 20 mg QAM PO 03/22/17 09:00 04/21/17 08:59 Miscellaneous Information (Check Fentanyl Patch Placement) 1 ea QS N/A 03/22/17 17:00 04/21/17 16:59 03/25/17 08:16 1 EA Acetaminophen 650 mg/Empty Bag 65 ml @ 260 mls/hr Q6H PRN IV 03/21/17 20:45 04/20/17 20:44 Pantoprazole Sodium (Protonix Tab) 40 mg QAM PO 03/22/17 09:00 04/21/17 08:59 Future Hold 03/24/17 07:40 40 MG Vancomycin HCl (Consult) 1 ea UD PRN N/A 03/22/17 08:45 04/21/17 08:44 Future Hold Miscellaneous Information (Consult Glycemic Management Pharmacy) 1 ea UD PRN N/A 03/22/17 12:14 04/21/17 12:13 Insulin Detemir (Levemir Flexpen/ FlexTouch) 6 unit QAM SC 03/23/17 09:00 04/22/17 08:59 03/25/17 10:08 6 UNIT Insulin Detemir (Levemir Flexpen/ FlexTouch) 3 unit HS SC 03/23/17 21:00 04/22/17 20:59 03/24/17 20:58 3 UNIT Fentanyl (Duragesic Patch) 50 mcg Q3D@0630 TD 03/26/17 06:30 04/09/17 06:29 Miscellaneous (Fentanyl Patch Remove & Waste) 1 ea Q3D@0629 N/A 03/26/17 06:29 04/25/17 06:28 Ergocalciferol (Vitamin D Cap) 50,000 interunit Mo@0900 PO 03/25/17 09:00 04/24/17 08:59 Cephalexin Monohydrate (Keflex Cap) 250 mg BID PO 03/25/17 09:00 04/04/17 08:59 Ergocalciferol (Vitamin D Cap) 50,000 interunit Mo@0900 PO 04/01/17 09:00 06/17/17 09:01 Calcitriol (Rocaltrol Cap) 0.25 mcg QAM PO 03/25/17 09:00 04/24/17 08:59 Impression (1) Acute renal failure (2) UTI (urinary tract infection) (3) Sepsis (4) Diabetes (5) Hypertension (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 She was found to have the blood culture positive for Streptococcus and E coli, currently on cefepime and vancomycin. Add baseline her creatinine is 1.5-1.7, on admission she was found to have acute kidney injury and hypocalcemia, creatinine was 4 and calcium was them 7.8. She was significantly hypotensive on admission with some poor p.o. intake the for 2 days before admission as well as concomitant use of Lasix and losartan. Acute kidney injury most likely hemodynamically mediated, started to improve with volume depletion, creatinine was 2.6 this morning, other electrolyte improving. Her blood pressure improved and has been stable. Overall she continues to feel tired. Has chronic anemia probably secondary to chronic disease with underlying metastatic malignancy. Recommendations --calcium gluconate 1 gram IV x1 dose --start on ergocalciferol and calcitriol 0.25 microgram daily --okay to give maintenance fluid if p.o. intake is poor --Continue to monitor renal function with daily renal panel, expect renal function to continue to improve however she is pretty close to her baseline. Will follow
--- NOTE | 2017-03-25 12:12 | Pharmacy Progress Note ---
Glycemic: Assessment & Plan Date of Service Mar 25, 2017. Assessment & Plan The patient is currently receiving 18 units of insulin per day. BSGs ranging 129-183 mg/dl over the past 24hrs. Of note, nurse called pharmacy this report patient experiencing N/V this AM. * Basal insulin: Levemir 6 units every AM + 3 units every PM * Correctional Insulin: Novolog Correction per scale ACHS Goal Range: Low 140 mg/dL - High 160 mg/dL Correction Factor: 25 mg/dL/unit * Prandial insulin: Per carb ratio of 1 unit per 9 grams CHO consumed No changes needed to inpatient regimen at this time. Pharmacy will continue to monitor patient daily and write orders per [facility] inpatient glycemic control protocol. Thanks. * Please note that the plan above was derived based on current level of insulin resistance and hospital stress. These recommendations are appropriate for inpatient admission only. Plan of care upon discharge will need to be reassessed to avoid potential outpatient hypo/hyperglycemia.
--- NOTE | 2017-03-25 14:18 | Pharmacy Progress Note ---
Pharmacy Abx Dose Short Note Date of Service Mar 25, 2017. Assessment & Plan Assessment 81 year old female receiving IV Vancomycin and Keflex for treatment of G+ bacteremia Day # 01/11 of antimicrobial therapy. * Vancomycin being dosed based on random levels due to PIERCE/rapidly changing renal function. * Random level of 24.7 mcg/mL is supratherapeutic (~20 hours after last dose) * Last dose of Vancomycin 1000mg (~15mg/kg) IV was given on 03/24 @ 0940 * Estimated patient-specific pharmacokinetics: * ke ~0.026 with estimated half-life ~26.6 hrs * Infectious Disease is following the patient. Repeat blood cultures were obtained today, 03/25/17. * sCr decr' to 1.9 mg/dL with estimated CrCl improved to ~20 mL/min. Given severity of her infection, do not want her Vancomycin to fall to less than 15 mcg/mL. Therefore, will empirically schedule a small dose to be given ~14 hours from supratherapeutic level. Plan Vancomycin * Give Vancomycin 500mg (7mg/kg) IV x 1 on 03/25 @ 2000 (estimate that level should fall within 15-20 mcg/mL at this time) * Goal "trough" level for bacteremia : 15 to 20 mcg/mL * Random level ordered for: 03/26/17 with AM labs * Continue to dose Vancomycin based on random levels until renal function normalize Pharmacy will continue to follow and will adjust dose/frequency as necessary. Thank you.
--- NOTE | 2017-03-25 14:39 | Family Medicine Progress Note ---
Progress Note Date of Service Mar 25, 2017. Subjective Pt evaluation today including: conversation w/ patient, conversation w/ family , physical exam, chart review, lab review, review of studies Pain: 0/10 PO Intake: WNL Voiding: no voiding problems Patient had significant nausea this morning and was feeling unwell. After receiving zofran and visiting in the afternoon the patient stated that she did feel better. We did discuss care with the family and patient and questions were addressed. Constitutional: No fever Eyes: No worsening of vision ENT: No hearing loss Respiratory: No cough, No sputum, No wheezing, No shortness of breath, No dyspnea on exertion Cardiovascular: No chest pain Abdomen: + nausea, No pain, No vomiting, No diarrhea, No constipation, No GI bleeding Musculoskeletal: No joint pain, No muscle pain Female : No dysuria Neurologic: + weakness, + balance problems Psychiatric: No depression symptoms Heme: No abnormal bleeding/bruising Endo: + fatigue Skin: No rash Medications Medications Administered Medications (Trade) Dose Ordered Sig/Suleiman Route Start Time Stop Time Status Last Admin Dose Admin Sodium Chloride 1,000 ml @ 999 mls/hr Q1H1M STAT IV 03/21/17 12:58 03/21/17 13:58 DC 03/21/17 13:22 999 MLS/HR Cefepime HCl 1000 mg/Dextrose 111.3 ml @ 200 mls/hr NOW STAT IV 03/21/17 14:11 03/21/17 14:44 DC 03/21/17 14:20 200 MLS/HR Sodium Chloride 1,000 ml @ 125 mls/hr Q8H STAT IV 03/21/17 14:21 03/21/17 16:56 DC 03/21/17 14:21 125 MLS/HR Sodium Chloride 1,000 ml @ 100 mls/hr Q10H IV 03/21/17 17:00 04/20/17 16:59 03/25/17 10:51 100 MLS/HR Ondansetron HCl (Zofran Inj) 4 mg Q6H PRN IV 03/21/17 15:45 04/20/17 15:44 03/25/17 09:09 4 MG Insulin Aspart (novoLOG ASPART) SLIDING SCALE If C... ACHS SC 03/21/17 16:00 04/20/17 15:59 03/25/17 13:38 3 UNITS Acetaminophen/ Hydrocodone Bitart ([place] 7.5/325 Tab) 1 tab for mild-moderate pain (p... Q4 PRN PO 03/21/17 15:45 04/04/17 15:44 03/22/17 09:05 1 TAB Levothyroxine Sodium (Synthroid Tab) 200 mcg DAILYBB PO 03/22/17 06:30 04/21/17 06:29 03/25/17 06:05 200 MCG Lactobacillus Acidophilus (Floranex Tab) 1 tab DAILY PO 03/22/17 09:00 04/21/17 08:59 03/24/17 07:40 1 TAB Cefepime HCl 500 mg/Dextrose 105.65 ml @ 200 mls/ hr DAILY@1400 IV 03/22/17 14:00 03/24/17 15:13 DC 03/24/17 14:17 200 MLS/HR Vancomycin HCl (Vancomycin Oral Soln) 125 mg TID PO 03/21/17 21:00 03/25/17 09:01 DC 03/24/17 20:57 125 MG Miscellaneous Information (Check Fentanyl Patch Placement) 1 ea QS N/A 03/22/17 17:00 04/21/17 16:59 03/25/17 08:16 1 EA Raspberry (Raspberry Syrup 5ml Cup) 5 ml TID PO 03/21/17 21:00 03/25/17 09:01 DC 03/24/17 20:57 5 ML Acetaminophen 650 mg/Empty Bag 65 ml @ 260 mls/hr TODAY@2030 IV 03/21/17 20:30 03/21/17 23:00 DC 03/21/17 21:00 260 MLS/HR Pantoprazole Sodium (Protonix Tab) 40 mg QAM PO 03/22/17 09:00 04/21/17 08:59 Future Hold 03/24/17 07:40 40 MG Vancomycin HCl 1500 mg/Sodium Chloride 530 ml @ 200 mls/hr 0900 IV 03/22/17 09:00 03/22/17 11:38 DC 03/22/17 09:21 200 MLS/HR Insulin Human Regular 5 units/ Syringe 5 ml @ 1 mls/min TODAY@1300 ONCE IV 03/22/17 13:00 03/22/17 13:04 DC 03/22/17 12:59 1 MLS/MIN Insulin Detemir (Levemir Flexpen/ FlexTouch) 10 unit 1300 ONCE SC 03/22/17 13:00 03/22/17 13:01 DC 03/22/17 13:00 10 UNIT Insulin Detemir (Levemir Flexpen/ FlexTouch) SEE PROTOCOL TEXT HS SD 03/22/17 21:00 03/22/17 23:59 DC 03/22/17 20:18 3 UNIT Insulin Aspart (novoLOG ASPART) SLIDING SCALE If C... 0000,0400 SD 03/23/17 00:00 03/23/17 05:00 DC 03/22/17 23:23 2 UNITS Insulin Human Regular 5 units/ Syringe 5 ml @ 30 mls/min NOW ONCE IV 03/22/17 17:30 03/22/17 17:31 DC 03/22/17 17:40 30 MLS/MIN Insulin Detemir (Levemir Flexpen/ FlexTouch) 6 unit QAM SD 03/23/17 09:00 04/22/17 08:59 03/25/17 10:08 6 UNIT Insulin Detemir (Levemir Flexpen/ FlexTouch) 3 unit HS SD 03/23/17 21:00 04/22/17 20:59 03/24/17 20:58 3 UNIT Vancomycin HCl 1000 mg/Sodium Chloride 270 ml @ 125 mls/hr 0830 IV 03/23/17 08:30 03/23/17 10:40 DC 03/23/17 09:00 125 MLS/HR Fentanyl (Duragesic Patch) 50 mcg NOW ONCE TD 03/23/17 10:30 03/23/17 10:31 DC 03/23/17 10:28 50 MCG Miscellaneous (Fentanyl Patch Remove & Waste) 1 ea Q3D@1030 N/A 03/23/17 10:30 03/23/17 12:00 DC 03/23/17 10:30 1 EA Vancomycin HCl 1000 mg/Sodium Chloride 270 ml @ 125 mls/hr 1000 IV 03/24/17 10:00 03/24/17 12:10 DC 03/24/17 09:40 125 MLS/HR Calcium Gluconate 1000 mg/Sodium Chloride 60 ml @ 240 mls/hr NOW STAT IV 03/24/17 09:49 03/24/17 10:03 DC 03/24/17 10:49 240 MLS/HR Magnesium Sulfate 1 gm/Prmx 100 ml @ 100 mls/hr 1900 IV 03/24/17 19:00 03/24/17 19:59 DC 03/24/17 19:03 100 MLS/HR Potassium Phosphate 15 mmol/ Sodium Chloride 255 ml @ 88 mls/hr TODAY@1900 IV 03/24/17 19:00 03/24/17 21:54 DC 03/24/17 19:03 88 MLS/HR Calcium Gluconate 1000 mg/Sodium Chloride 60 ml @ 240 mls/hr NOW ONCE IV 03/25/17 09:00 03/25/17 09:14 DC 03/25/17 09:12 240 MLS/HR Objective Vital Signs Date Time Temp Pulse Resp B/P (MAP) Pulse Ox O2 Delivery O2 Flow Rate FiO2 03/25/17 12:30 Room Air 03/25/17 11:44 37.3 102 20 132/70 (90) 94 Room Air 03/25/17 09:38 37.2 109 163/75 (104) 03/25/17 08:00 Room Air 03/25/17 07:43 37.5 92 20 159/79 (105) 96 Room Air 03/25/17 04:00 Room Air 03/25/17 04:00 36.5 79 16 135/65 (88) 98 03/25/17 00:21 36.9 79 18 133/70 (91) 96 Room Air 03/25/17 00:01 Room Air 03/24/17 20:11 37.1 68 20 124/71 (88) 96 Room Air 03/24/17 20:00 Room Air 03/24/17 17:13 72 18 131/63 (85) 95 Room Air 03/24/17 16:00 Room Air 03/24/17 14:48 36.6 77 20 130/73 (92) 99 Room Air Physical Exam General Appearance: no apparent distress, + obese Eyes: normal inspection ENT: normal ENT inspection Neck: supple Respiratory/Chest: normal breath sounds, no respiratory distress, no accessory muscle use Cardiovascular: regular rate, rhythm, + systolic murmur (3/6) Abdomen: normal bowel sounds, non tender, soft Extremities: normal range of motion, non-tender, normal inspection, no calf tenderness, + pedal edema (+1 bilat BL for patient) Neurologic/Psychiatric: alert, normal mood/affect, oriented x 3 Skin: normal color, warm/dry, no rash, + pertinent finding (stasis dermatits of bilat LE) Lymphatic: no adenopathy Laboratory Results Results Past 24 Hours Test 03/24/17 16:30 03/24/17 17:27 03/24/17 20:52 03/25/17 06:17 Range/Units Bedside Glucose 153 131 70-90 mg/dl Potassium Level 4.6 4.3 3.5-5.1 mmol/L Phosphorus Level 2.0 2.5 2.5-4.9 mg/dl Magnesium Level 1.7 1.8-2.4 mg/dl 25-Hydroxy Vitamin D Total 16.4 30-100 ng/ml Parathyroid Hormone (Intact) 685.0 11.1-79.5 pg/mL Sodium Level 139 136-145 mmol/L Chloride Level 110 98-107 mmol/L Carbon Dioxide Level 18 21-32 mmol/L Anion Gap 11.0 3-11 mmol/L Blood Urea Nitrogen 38 7-18 mg/dl Creatinine 1.90 0.60-1.20 mg/dl Est Creatinine Clear Calc Drug Dose 20.0 ml/min Estimated GFR () 28.2 Estimated GFR (Non- 24.3 BUN/Creatinine Ratio 20.1 10-20 Random Glucose 152 70-99 mg/dl Calcium Level 6.4 8.5-10.1 mg/dl Albumin 1.8 3.4-5.0 gm/dl Random Vancomycin Level 24.7 mcg/ml Test 03/25/17 07:59 03/25/17 11:58 Range/Units Bedside Glucose 158 192 70-90 mg/dl Microbiology Results 03/25/17 Blood Culture, Received Pending 03/25/17 Blood Culture, Received Pending 03/25/17 C.difficile Toxin B Gene (PCR), Received Pending Assessment and Plan This is an 81 yo f with a history of 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 The UA did not culture E Coli however the patient did have a positive blood culture for E Coli and E faecalis. She was treated with vanco and Cefepime and transitioned to Vanco and keflex based on sensitivities. Sepsis secondary to E coli/ E Faecealis infection, source potentially vs GI? - UA is reflective of the source however UCx did not grow similar bacteria - Renal USG did not reveal an abscess - Transitioned to Vanco ( day 4) and Keflex ( day 1) - USG gall to assess for GI source, history of cholelithiasis - repeat blood cultures pending PIERCE on CKD secondary to UTI and dehydration - Patient has been receiving gentle rehydration - Significant improvement in Cr - Appreciate Nephro input - Bl is approx 1.5-1.7 History of C Diff - We did have a prolonged discussion about empirically treating for C diff. As the patient is asymptomatic will hold oral Vanco. We also discussed holding Protonix while using antibiotics as this can increase the risk of C Diff infection. Family and patient understood and was agreeable to this. History of RCC - Dr Lomeli with [facility] Hypophosphatemia/ hypocalcemia/ Elevated PTH - most likely secondary in nature - Vit D Def - Ergocalciferol supplementation Hypomagnesemia - Continue to follow and replete Prn DVT - patient has a history of bleeding with coumadin, heparin refused - SCD Continued [facility] stay due to: multiple IV medications needed, other Discharge planning: home with home health Reviewed: Pt Seen/Exam by Me History feeling lethargic but much improved since after admission Constitutional: denies: fever Respiratory: negative: short of breath Cardiovascular: denies chest pain General Appearance: mild distress Respiratory: lungs clear, no respiratory distress Cardiovascular: regular rate, rhythm Gastrointestinal: normal bowel sounds, non tender, soft Neurologic/Psychiatric: alert, oriented x 3 Skin Characteristics: warm/dry Assessment/Plan I have reviewed the medical record and performed a history and physical examination of this patient today. I have discussed the case with Dr. Morley. The above note reflects my findings, conclusions, and recommendations.
--- NOTE | 2017-03-25 15:26 | Infectious Disease Progress Nt ---
Progress Note Date of Service Mar 25, 2017. Subjective Pt evaluation today including: conversation w/ patient, conversation w/ family , physical exam, chart review, lab review, review of studies, review of inpatient medication list Patient was complaining of nausea and stomach upset this morning, but is feeling slightly better now. She did have a large loose bowel movement this afternoon which was sent for C. Diff testing. WBC count yesterday was stable at 8.84. Creatinine today improved slightly to 1.90. Initial blood cultures growing Enterococcus and E. Coli in bottles. No repeat cultures available. Repeat urine culture showed no growth. All Other Systems: Reviewed and Negative Medications Current Inpatient Medications Medications (Trade) Dose Ordered Sig/Suleiman Route Start Time Stop Time Status Last Admin Dose Admin Sodium Chloride 1,000 ml @ 100 mls/hr Q10H IV 03/21/17 17:00 04/20/17 16:59 03/25/17 10:51 100 MLS/HR Acetaminophen (Tylenol Tab) 650 mg Q4H PRN PO 03/21/17 15:45 04/20/17 15:44 Al Hydrox/Mg Hydrox/Simethicone (Maalox Max Susp) 15 ml Q4H PRN PO 03/21/17 15:45 04/20/17 15:44 Magnesium Hydroxide (Milk Of Magnesia Susp) 30 ml Q12H PRN PO 03/21/17 15:45 04/20/17 15:44 Ondansetron HCl (Zofran Inj) 4 mg Q6H PRN IV 03/21/17 15:45 04/20/17 15:44 03/25/17 09:09 4 MG Polyethylene (Miralax Powder Packet) 17 gm DAILY PRN PO 03/21/17 15:45 04/20/17 15:44 Insulin Aspart (novoLOG ASPART) SLIDING SCALE If C... ACHS SC 03/21/17 16:00 04/20/17 15:59 03/25/17 13:38 3 UNITS Glucose (Glucose 40% Gel) 15-30 GRAMS 15 GRAMS... UD PRN PO 03/21/17 15:45 04/20/17 15:44 Glucose (Glucose Chew Tab) 4-8 Tablets 4 Tabl... UD PRN PO 03/21/17 15:45 04/20/17 15:44 Dextrose (Dextrose 50% 50ML Syringe) 25-50ML OF 50% DW IV FOR... UD PRN IV 03/21/17 15:45 04/20/17 15:44 Glucagon (Glucagon Inj) 1 mg UD PRN SQ 03/21/17 15:45 04/20/17 15:44 Acetaminophen/ Hydrocodone Bitart ([place] 7.5/325 Tab) 1 tab for mild-moderate pain (p... Q4 PRN PO 03/21/17 15:45 04/04/17 15:44 03/22/17 09:05 1 TAB Levothyroxine Sodium (Synthroid Tab) 200 mcg DAILYBB PO 03/22/17 06:30 04/21/17 06:29 03/25/17 06:05 200 MCG Ondansetron HCl (Zofran Tab) 8 mg Q8 PRN PO 03/21/17 15:45 04/20/17 15:44 Senna (Senokot Tab) 8.6 mg DAILY PRN PO 03/21/17 15:45 04/20/17 15:44 Lactobacillus Acidophilus (Floranex Tab) 1 tab DAILY PO 03/22/17 09:00 04/21/17 08:59 03/24/17 07:40 1 TAB Famotidine (Pepcid Tab) 20 mg QAM PO 03/22/17 09:00 04/21/17 08:59 Miscellaneous Information (Check Fentanyl Patch Placement) 1 ea QS N/A 03/22/17 17:00 04/21/17 16:59 03/25/17 08:16 1 EA Acetaminophen 650 mg/Empty Bag 65 ml @ 260 mls/hr Q6H PRN IV 03/21/17 20:45 04/20/17 20:44 Pantoprazole Sodium (Protonix Tab) 40 mg QAM PO 03/22/17 09:00 04/21/17 08:59 Future Hold 03/24/17 07:40 40 MG Vancomycin HCl (Consult) 1 ea UD PRN N/A 03/22/17 08:45 04/21/17 08:44 Future hold Miscellaneous Information (Consult Glycemic Management Pharmacy) 1 ea UD PRN N/A 03/22/17 12:14 04/21/17 12:13 Insulin Detemir (Levemir Flexpen/ FlexTouch) 6 unit QAM SC 03/23/17 09:00 04/22/17 08:59 03/25/17 10:08 6 UNIT Insulin Detemir (Levemir Flexpen/ FlexTouch) 3 unit HS SC 03/23/17 21:00 04/22/17 20:59 03/24/17 20:58 3 UNIT Fentanyl (Duragesic Patch) 50 mcg Q3D@0630 TD 03/26/17 06:30 04/09/17 06:29 Miscellaneous (Fentanyl Patch Remove & Waste) 1 ea Q3D@0629 N/A 03/26/17 06:29 04/25/17 06:28 Cephalexin Monohydrate (Keflex Cap) 250 mg BID PO 03/25/17 09:00 04/04/17 08:59 Ergocalciferol (Vitamin D Cap) 50,000 interunit Mo@0900 PO 04/01/17 09:00 06/17/17 09:01 Calcitriol (Rocaltrol Cap) 0.25 mcg QAM PO 03/25/17 09:00 04/24/17 08:59 Vancomycin HCl 500 mg/Sodium Chloride 260 ml @ 125 mls/hr TODAY@2000 ONCE IV 03/25/17 20:00 03/25/17 22:04 Objective Vital Signs Date Time Temp Pulse Resp B/P (MAP) Pulse Ox O2 Delivery O2 Flow Rate FiO2 03/25/17 12:30 Room Air 03/25/17 11:44 37.3 102 20 132/70 (90) 94 Room Air 03/25/17 09:38 37.2 109 163/75 (104) 03/25/17 08:00 Room Air 03/25/17 07:43 37.5 92 20 159/79 (105) 96 Room Air 03/25/17 04:00 Room Air 03/25/17 04:00 36.5 79 16 135/65 (88) 98 03/25/17 00:21 36.9 79 18 133/70 (91) 96 Room Air 03/25/17 00:01 Room Air 03/24/17 20:11 37.1 68 20 124/71 (88) 96 Room Air 03/24/17 20:00 Room Air 03/24/17 17:13 72 18 131/63 (85) 95 Room Air 03/24/17 16:00 Room Air Physical Exam General Appearance: WD/WN, no apparent distress Eyes: normal inspection, sclerae normal ENT: hearing grossly normal Neck: supple, trachea midline Respiratory/Chest: chest non-tender, no respiratory distress, no accessory muscle use Cardiovascular: regular rate, rhythm Abdomen: normal bowel sounds, soft Neurologic/Psychiatric: alert, normal mood/affect Skin: normal color, warm/dry, no rash Laboratory Results Item Value Date Time C.difficile Toxin B Gene (PCR) Received 03/25/17 0000 Stool Pending Urine Culture - Final Complete 03/22/17 1052 Urine,Catheterized NO GROWTH - LESS THAN 1,000 COLONIES/ML Blood Culture - Preliminary Resulted 03/21/17 1330 Blood NO GROWTH TO DATE. Blood Culture - Final Complete 03/21/17 1320 Blood Enterococcus Faecalis RUN DATE: 03/24/17 [facility] PAGE 1 RUN TIME: 1415 Specimen Inquiry PATIENT: PATRICIA PLASCENCIA LOC: [facility] # : [id number] AGE/SX: 81/F ROOM: 87 REG : 03/21/[address]: Mitesh Qureshi MD, PhD : 1935 BED: 2 DIS : STATUS: ADM IN TLOC: SPEC #: [id number] SKINNY: 03/21/17 STATUS: MICHELLE REAmina #: [id number] RECD: 03/21/[address] [facility] [address]: Mitesh Fajardo M.D. SOURCE: BLOOD ENTR: 03/21/17-[address] [facility] [address]: Kamini Dunn M.D. [facility]: ORDERED: BLOOD CULTURE Procedure Result Verified Site BLD CULT Final 03/24/17-1415 Organism 1 ENTEROCOCCUS FAECALIS SENS SENSITIVITY TO FOLLOW Organism 2 ESCHERICHIA COLI SENS SENSITIVITY TO FOLLOW Phoned Positive Blood Culture Gram Stain Report to AZIZA HINES on 03/22/17 At 0950 By STEPHANIE. Results were verbalized back to STEPHANIE. Phoned Positive Blood Culture Gram Stain Report to REID JOLLY on 03/22/17 At 0704 By JAMES. Results were verbalized back to JAMES. E FAECALIS E COLI M.I.C. RX M.I.C. RX --------- ------ --------- ------ TRIMET/SULFA <=2/38 S AMPICILLIN <=2 S >16 R AMPICILLIN/SUL 16/8 I CEFAZOLIN <=8 S CEFOTAXIME <=2 S CEFTRIAXONE <=1 S CEFEPIME <=4 S CEFUROXIME <=4 S IMIPENEM <=1 S GENT SYNERGY <=500 S VANCOMYCIN 1 S PENICILLIN 2 S GENTAMICIN <=4 S TOBRAMYCIN <=4 S AMIKACIN <=16 S CIPROFLOXACIN <=1 S LEVOFLOXACIN <=2 S ERTAPENEM <=1 S DAPTOMYCIN 2 S PIP/TAZO <=16 S STREP SYNERGY >1000 R CONTINUED ON NEXT PAGE RUN DATE: 03/24/17 [facility] PAGE 2 RUN TIME: 1415 Specimen Inquiry SPEC: [id number] PATIENT: THAISPATRICIA [id number] ( Continued) Procedure Result Verified Site BLD CULT Final (continued) 03/24/17-1415 1. ENTEROCOCCUS FAECALIS Target Route Dose RX AB Cost M.I.C. IQ ------ ----- ------ -- ------ -------- - ------ AMPICILLIN S <=2 GENT SYNERGY S <=500 VANCOMYCIN S 1 PENICILLIN S 2 DAPTOMYCIN S 2 STREP SYNERGY R >1000 Streptomycin Synergy Screen R Gentamicin Synergy Screen S 2. ESCHERICHIA COLI Target Route Dose RX AB Cost M.I.C. IQ ------ ----- ------ -- ------ -------- - ------ TRIMET/SULFA S <=2/38 AMPICILLIN R >16 AMPICILLIN/SUL I 16/8 CEFAZOLIN S <=8 CEFOTAXIME S <=2 CEFTRIAXONE S <=1 CEFEPIME S <=4 CEFUROXIME S <=4 IMIPENEM S <=1 GENTAMICIN S <=4 TOBRAMYCIN S <=4 AMIKACIN S <=16 CIPROFLOXACIN S <=1 LEVOFLOXACIN S <=2 ERTAPENEM S <=1 PIP/TAZO S <=16 S = SENSITIVE I = INTERMEDIATE R = RESISTANT END OF REPORT Last 24 Hours Test 03/24/17 16:30 03/24/17 17:27 03/24/17 20:52 03/25/17 06:17 Bedside Glucose 153 mg/dl 131 mg/dl Potassium Level 4.6 mmol/L 4.3 mmol/L Phosphorus Level 2.0 mg/dl 2.5 mg/dl Magnesium Level 1.7 mg/dl 25-Hydroxy Vitamin D Total 16.4 ng/ml Parathyroid Hormone (Intact) 685.0 pg/mL Sodium Level 139 mmol/L Chloride Level 110 mmol/L Carbon Dioxide Level 18 mmol/L Anion Gap 11.0 mmol/L Blood Urea Nitrogen 38 mg/dl Creatinine 1.90 mg/dl Est Creatinine Clear Calc Drug Dose 20.0 ml/min Estimated GFR () 28.2 Estimated GFR (Non- 24.3 BUN/Creatinine Ratio 20.1 Random Glucose 152 mg/dl Calcium Level 6.4 mg/dl Albumin 1.8 gm/dl Random Vancomycin Level 24.7 mcg/ml Test 03/25/17 07:59 03/25/17 11:58 Bedside Glucose 158 mg/dl 192 mg/dl Assessment and Plan Patient with Enterococcus and E. Coli bacteremia with likely Versus GI source. The patient has not had repeat blood cultures, so will repeat cultures today. Due to the findings of 2 enteric organisms in blood, recommend further abdominal imaging studies. Note Gallbladder U/S pending. Will await those results but would consider CT of the abdomen and pelvis. Will continue currently therapy with IV Vancomycin & PO Keflex pending further workup and repeat blood cultures. We will follow. Case reviewed and agree with above assessment.
[2017-03-25] MEDS ORDERED: VANCOMYCIN HCL 125 MG/2.5ML SOLN PO SCH (17:00)
[2017-03-25] MEDS ORDERED: VANCOMYCIN INJ 500 MG in SODIUM CHLORIDE 0.9% 250ML 250 ML IV ONE (20:00)
--- NOTE | 2017-03-25 20:30 | DIAGNOSTIC IMAGING REPORT ---
ABDOMINAL ULTRASOUND, RIGHT UPPER QUADRANT HISTORY: Sepsis. r/o cholecystitis . COMPARISON: Abdomen and pelvis CT 02/12/2017. Abdominal ultrasound 02/08/2017. FINDINGS: Pancreas: Obscured by overlying bowel gas. Liver: Multiple hepatic masses are again noted. Gallbladder: Gallbladder is not well-visualized but appears contracted and filled with stones. Gallbladder wall is not well assessed. CBD: A common bile duct stent is again noted. Right kidney: No hydronephrosis. IMPRESSION: 1. Suboptimal evaluation due to the patient's condition and overlapping bowel. 2. The gallbladder is not well-visualized but appears contracted and filled with stones. 3. Common bile duct stent is again noted. 4. Multiple hepatic masses are not significantly changed. Electronically signed by: Donovan Pan M.D. 03/25/2017 8:28 PM Dictated Date/Time: 03/25/2017 8:25 PM
[2017-03-25] MEDS: METRONIDAZOLE 500 MG TAB PO SCH (21:32)
[2017-03-26] VITALS (7 sets, daily range): BP systolic 124–150; BP diastolic 68–75; PULSE 76–80; TEMP 36.6–37; O2SAT 96–98
[2017-03-26] MEDS: CHECK FENTANYL PATCH PLACEMENT SCH ×4 (00:07→23:40)
[2017-03-26] MEDS: LEVOTHYROXINE 200 MCG TAB PO SCH (06:12)
[2017-03-26] MEDS ORDERED: FENTANYL PATCH REMOVE & WASTE SCH ×2 (06:29→08:59)
[2017-03-26] MEDS ORDERED: FENTANYL 50 MCG/HR TDSY TD SCH ×2 (06:30→09:00)
[2017-03-26 07:32] LABS: BASO % 0.3 %; BASO ABS # 0.03 K/uL (0-0.2); COMPLETE YES; EOS % 1.7 %; HEMATOCRIT 30.4 % (37-47); IG% 3.8 %; LYMPH % 8.2 %; LYMPH ABS # 0.85 K/uL (1.2-3.4); MEAN CELL VOLUME 89.7 fL (80-100); MEAN CORPUSCULAR HEMOGLOBIN 28.3 pg (25-34); MEAN CORPUSCULAR HGB CONC 31.6 g/dl (32-36); MEAN PLATELET VOLUME 10.7 fL (7.4-10.4); PLATELET COUNT 186 K/uL (130-400); RED BLOOD COUNT 3.39 M/uL (4.2-5.4); WHITE BLOOD COUNT 10.34 K/uL (4.8-10.8)
[2017-03-26] MEDS: SODIUM CHLORIDE 0.9% 1000ML 1,000 ML IV SCH (07:53)
[2017-03-26 07:56] LABS: BUN/CREATININE RATIO 20.8 (10-20); CREATININE 1.4 mg/dl (0.60-1.20); MAGNESIUM 1.8 mg/dl (1.8-2.4); POTASSIUM 4.1 mmol/L (3.5-5.1)
[2017-03-26] MEDS: INSULIN ASPART 100 UNITS/ML 3 ML PEN SC SCH ×4 (07:56→21:43)
[2017-03-26 08:03] LABS: ALB/GLOB RATIO 0.4 (0.9-2); PHOSPHORUS 1.9 mg/dl (2.5-4.9)
[2017-03-26] MEDS ORDERED: SODIUM PHOSPHATE 3 MMOL/1 ML INFUSION IV STA (08:14)
[2017-03-26] MEDS ORDERED: SODIUM PHOSPHATE INJ 15 MMOL in SODIUM CHLORIDE 0.9% 250ML 250 ML IV SCH (08:30)
[2017-03-26] MEDS: FAMOTIDINE 20 MG TAB PO SCH (08:34)
[2017-03-26] MEDS: METRONIDAZOLE 500 MG TAB PO SCH (08:34)
[2017-03-26] MEDS: LACTOBACILLUS ACIDOPHILUS (FLORANEX) TAB PO SCH (08:35)
[2017-03-26] MEDS: CALCITRIOL 0.25 MCG CAP PO SCH (08:36)
[2017-03-26] MEDS: CEPHALEXIN MONOHYDRATE 250 MG CAP PO SCH ×2 (08:36→21:45)
[2017-03-26] MEDS: INSULIN DETEMIR FLEXPEN/FLEX TOUCH 100 UNITS/ML 3ML SC SCH ×2 (08:38→21:42)
--- NOTE | 2017-03-26 10:10 | Nephrology Progress Note ---
Nephrology Progress Note Date of Service Mar 26, 2017. Chief Complaint Evaluation and management for acute kidney injury with history of chronic kidney disease and solitary right kidney Sabas Luevano Was seen and examined in her room with her daughters at bedside. She is overall feeling much better today, denies them nausea or abdominal pain. She just had breakfast, tolerated well. Has diarrhea with loose bowel movement. Blood pressure stable. Renal function continues to improve rapidly, creatinine 1.4 this morning which is at her baseline. Review of Systems A complete review of systems was performed. Pertinent positives are noted above. All other systems are negative. Vital Signs Last 8 Hrs Date Time Temp Pulse Resp B/P (MAP) Pulse Ox O2 Delivery O2 Flow Rate FiO2 03/26/17 08:00 Room Air 03/26/17 07:06 36.7 76 16 133/70 (91) 98 Room Air 03/26/17 04:00 Room Air 03/26/17 03:06 36.8 79 16 124/68 (86) 96 Room Air Last Recorded Weight Weight (Kilograms): 68.600 Physical Exam GENERAL: Elderly female, AAA x 3, pleasant, pale,not in any distress. NECK: Supple, no JVD. RESPIRATORY: Normal breathing efforts, no accessory muscle use, clear to auscultation bilaterally, no wheezes or rales. CARDIOVASCULAR: S1, S2 normal, rate rhythm regular. EXTREMITY: No lower extremity edema NEURO: speech fluent. PSYCHIATRY: Normal mood and judgment Family History Patient reports no known family medical history. Social History Smoking Status: Never smoker Smokeless Tobacco Use: No Alcohol Use: none Drug Use: none Marital Status: Occupation: retired Laboratory Results Past 24 Hours 03/26/17 07:13 Red Blood Count 3.39, Mean Corpuscular Volume 89.7, Mean Corpuscular Hemoglobin 28.3, Mean Corpuscular Hemoglobin Concent 31.6, Mean Platelet Volume 10.7, Neutrophils (%) (Auto) 80.0, Lymphocytes (%) (Auto) 8.2, Monocytes (%) (Auto) 6.0, Eosinophils (%) (Auto) 1.7, Basophils (%) (Auto) 0.3, Neutrophils # (Auto) 8.27, Lymphocytes # (Auto) 0.85, Monocytes # (Auto) 0.62, Eosinophils # (Auto) 0.18, Basophils # (Auto) 0.03 03/26/17 07:13 Test 03/25/17 11:58 03/25/17 16:53 03/25/17 20:36 03/26/17 07:13 Bedside Glucose 192 mg/dl (70-90) 144 mg/dl (70-90) 116 mg/dl (70-90) White Blood Count 10.34 K/uL (4.8-10.8) Red Blood Count 3.39 M/uL (4.2-5.4) Hemoglobin 9.6 g/dL (12.0-16.0) Hematocrit 30.4 % (37-47) Mean Corpuscular Volume 89.7 fL (80-100) Mean Corpuscular Hemoglobin 28.3 pg (25-34) Mean Corpuscular Hemoglobin Concent 31.6 g/dl (32-36) Platelet Count 186 K/uL (130-400) Mean Platelet Volume 10.7 fL (7.4-10.4) Neutrophils (%) (Auto) 80.0 % Lymphocytes (%) (Auto) 8.2 % Monocytes (%) (Auto) 6.0 % Eosinophils (%) (Auto) 1.7 % Basophils (%) (Auto) 0.3 % Neutrophils # (Auto) 8.27 K/uL (1.4-6.5) Lymphocytes # (Auto) 0.85 K/uL (1.2-3.4) Monocytes # (Auto) 0.62 K/uL (0.11-0.59) Eosinophils # (Auto) 0.18 K/uL (0-0.5) Basophils # (Auto) 0.03 K/uL (0-0.2) RDW Standard Deviation 59.1 fL (36.4-46.3) RDW Coefficient of Variation 18.1 % (11.5-14.5) Immature Granulocyte % (Auto) 3.8 % Immature Granulocyte # (Auto) 0.39 K/uL (0.00-0.02) Anion Gap 9.0 mmol/L (3-11) Est Creatinine Clear Calc Drug Dose 27.2 ml/min Estimated GFR () 40.7 Estimated GFR (Non- 35.1 BUN/Creatinine Ratio 20.8 (10-20) Phosphorus Level 1.9 mg/dl (2.5-4.9) Magnesium Level 1.8 mg/dl (1.8-2.4) Total Bilirubin 0.5 mg/dl (0.2-1) Aspartate Amino Transf (AST/SGOT) 11 U/L (15-37) Alanine Aminotransferase (ALT/SGPT) 7 U/L (12-78) Alkaline Phosphatase 116 U/L (45-117) Total Protein 5.5 gm/dl (6.4-8.2) Albumin 1.7 gm/dl (3.4-5.0) Globulin 3.8 gm/dl (2.5-4.0) Albumin/Globulin Ratio 0.4 (0.9-2) Random Vancomycin Level 22.3 mcg/ml Test 03/26/17 07:32 Bedside Glucose 114 mg/dl (70-90) Allergies Coded Allergies: Adhesives (Verified Allergy, Mild, LOCAL SKIN IRRITATION, BLISTERS, ) Medications Current Inpatient Medications Medications (Trade) Dose Ordered Sig/Suleiman Route Start Time Stop Time Status Last Admin Dose Admin Sodium Chloride 1,000 ml @ 100 mls/hr Q10H IV 03/21/17 17:00 04/20/17 16:59 03/26/17 07:53 100 MLS/HR Acetaminophen (Tylenol Tab) 650 mg Q4H PRN PO 03/21/17 15:45 04/20/17 15:44 Al Hydrox/Mg Hydrox/Simethicone (Maalox Max Susp) 15 ml Q4H PRN PO 03/21/17 15:45 04/20/17 15:44 Magnesium Hydroxide (Milk Of Magnesia Susp) 30 ml Q12H PRN PO 03/21/17 15:45 04/20/17 15:44 Ondansetron HCl (Zofran Inj) 4 mg Q6H PRN IV 03/21/17 15:45 04/20/17 15:44 03/25/17 09:09 4 MG Polyethylene (Miralax Powder Packet) 17 gm DAILY PRN PO 03/21/17 15:45 04/20/17 15:44 Insulin Aspart (novoLOG ASPART) SLIDING SCALE If C... ACHS SC 03/21/17 16:00 04/20/17 15:59 03/25/17 21:34 1 UNITS Glucose (Glucose 40% Gel) 15-30 GRAMS 15 GRAMS... UD PRN PO 03/21/17 15:45 04/20/17 15:44 Glucose (Glucose Chew Tab) 4-8 Tablets 4 Tabl... UD PRN PO 03/21/17 15:45 04/20/17 15:44 Dextrose (Dextrose 50% 50ML Syringe) 25-50ML OF 50% DW IV FOR... UD PRN IV 03/21/17 15:45 04/20/17 15:44 Glucagon (Glucagon Inj) 1 mg UD PRN SQ 03/21/17 15:45 04/20/17 15:44 Acetaminophen/ Hydrocodone Bitart ([place] 7.5/325 Tab) 1 tab for mild-moderate pain (p... Q4 PRN PO 03/21/17 15:45 04/04/17 15:44 03/22/17 09:05 1 TAB Levothyroxine Sodium (Synthroid Tab) 200 mcg DAILYBB PO 03/22/17 06:30 04/21/17 06:29 03/26/17 06:12 200 MCG Ondansetron HCl (Zofran Tab) 8 mg Q8 PRN PO 03/21/17 15:45 04/20/17 15:44 Senna (Senokot Tab) 8.6 mg DAILY PRN PO 03/21/17 15:45 04/20/17 15:44 Lactobacillus Acidophilus (Floranex Tab) 1 tab DAILY PO 03/22/17 09:00 04/21/17 08:59 03/26/17 08:35 1 TAB Famotidine (Pepcid Tab) 20 mg QAM PO 03/22/17 09:00 04/21/17 08:59 Miscellaneous Information (Check Fentanyl Patch Placement) 1 ea QS N/A 03/22/17 17:00 04/21/17 16:59 03/26/17 07:53 1 EA Acetaminophen 650 mg/Empty Bag 65 ml @ 260 mls/hr Q6H PRN IV 03/21/17 20:45 04/20/17 20:44 Pantoprazole Sodium (Protonix Tab) 40 mg QAM PO 03/22/17 09:00 04/21/17 08:59 Future Hold 03/24/17 07:40 40 MG Vancomycin HCl (Consult) 1 ea UD PRN N/A 03/22/17 08:45 04/21/17 08:44 Future hold Miscellaneous Information (Consult Glycemic Management Pharmacy) 1 ea UD PRN N/A 03/22/17 12:14 04/21/17 12:13 Insulin Detemir (Levemir Flexpen/ FlexTouch) 6 unit QAM SC 03/23/17 09:00 04/22/17 08:59 03/26/17 08:38 6 UNIT Insulin Detemir (Levemir Flexpen/ FlexTouch) 3 unit HS SC 03/23/17 21:00 04/22/17 20:59 03/25/17 21:35 3 UNIT Cephalexin Monohydrate (Keflex Cap) 250 mg BID PO 03/25/17 09:00 04/04/17 08:59 03/26/17 08:36 250 MG Ergocalciferol (Vitamin D Cap) 50,000 interunit Mo@0900 PO 04/01/17 09:00 06/17/17 09:01 Calcitriol (Rocaltrol Cap) 0.25 mcg QAM PO 03/25/17 09:00 04/24/17 08:59 03/26/17 08:36 0.25 MCG Metronidazole (Flagyl Tab) 500 mg TID PO 03/25/17 21:00 04/08/17 20:59 03/26/17 08:34 500 MG Fentanyl (Duragesic Patch) 50 mcg Q3D@0900 TD 03/26/17 09:00 04/09/17 08:59 03/26/17 08:35 50 MCG Miscellaneous (Fentanyl Patch Remove & Waste) 1 ea Q3D@0859 N/A 03/26/17 08:59 04/25/17 08:58 03/26/17 08:38 1 EA Sodium Phosphate 15 mmol/Sodium Chloride 255 ml @ 88 mls/hr TODAY@0830 IV 03/26/17 08:30 03/26/17 11:24 03/26/17 08:42 88 MLS/HR Impression (1) Acute renal failure (2) UTI (urinary tract infection) (3) Sepsis (4) Diabetes (5) Hypertension (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 She was found to have the blood culture positive for Streptococcus and E coli, currently on cefepime and vancomycin. Add baseline her creatinine is 1.5-1.7, on admission she was found to have acute kidney injury and hypocalcemia, creatinine was 4 and calcium was them 7.8. She was significantly hypotensive on admission with some poor p.o. intake the for 2 days before admission as well as concomitant use of Lasix and losartan. Acute kidney injury most likely hemodynamically mediated, started to improve with volume depletion, creatinine was 2.6 this morning, other electrolyte improving. Her blood pressure improved and has been stable. Overall she continues to feel tired. Has chronic anemia probably secondary to chronic disease with underlying metastatic malignancy. Recommendations --discontinue IV fluid as patient has been tolerating oral intake, blood pressure stable -- continue on ergocalciferol and calcitriol 0.25 microgram daily --Continue to monitor renal function with daily renal panel while inpatient however, okay to be discharged. Will follow
--- NOTE | 2017-03-26 11:16 | Family Medicine Progress Note ---
Progress Note Date of Service Mar 26, 2017. Subjective Pt evaluation today including: conversation w/ patient, conversation w/ family , physical exam, chart review, lab review, review of studies Pain: 0/10 PO Intake: WNL Voiding: no voiding problems Patient looks a lot more comfortable this morning. She has not had any nausea and is more involved in the conversation. We did discuss her care with nephro and ID. Questions were answered for family Constitutional: No fever Eyes: No worsening of vision ENT: No hearing loss Respiratory: No cough, No sputum, No wheezing, No shortness of breath, No dyspnea on exertion Cardiovascular: No chest pain Abdomen: + diarrhea, No pain, No nausea, No vomiting, No constipation Musculoskeletal: No joint pain, No muscle pain Female : No dysuria Neurologic: No weakness, No balance problems Psychiatric: No depression symptoms Endo: No fatigue Skin: No rash Medications Medications Administered Medications (Trade) Dose Ordered Sig/Suleiman Route Start Time Stop Time Status Last Admin Dose Admin Sodium Chloride 1,000 ml @ 999 mls/hr Q1H1M STAT IV 03/21/17 12:58 03/21/17 13:58 DC 03/21/17 13:22 999 MLS/HR Cefepime HCl 1000 mg/Dextrose 111.3 ml @ 200 mls/hr NOW STAT IV 03/21/17 14:11 03/21/17 14:44 DC 03/21/17 14:20 200 MLS/HR Sodium Chloride 1,000 ml @ 125 mls/hr Q8H STAT IV 03/21/17 14:21 03/21/17 16:56 DC 03/21/17 14:21 125 MLS/HR Sodium Chloride 1,000 ml @ 100 mls/hr Q10H IV 03/21/17 17:00 03/26/17 10:08 DC 03/26/17 07:53 100 MLS/HR Ondansetron HCl (Zofran Inj) 4 mg Q6H PRN IV 03/21/17 15:45 04/20/17 15:44 03/25/17 09:09 4 MG Insulin Aspart (novoLOG ASPART) SLIDING SCALE If C... ACHS SC 03/21/17 16:00 04/20/17 15:59 03/25/17 21:34 1 UNITS Acetaminophen/ Hydrocodone Bitart ([place] 7.5/325 Tab) 1 tab for mild-moderate pain (p... Q4 PRN PO 03/21/17 15:45 04/04/17 15:44 03/22/17 09:05 1 TAB Levothyroxine Sodium (Synthroid Tab) 200 mcg DAILYBB PO 03/22/17 06:30 04/21/17 06:29 03/26/17 06:12 200 MCG Lactobacillus Acidophilus (Floranex Tab) 1 tab DAILY PO 03/22/17 09:00 04/21/17 08:59 03/26/17 08:35 1 TAB Cefepime HCl 500 mg/Dextrose 105.65 ml @ 200 mls/ hr DAILY@1400 IV 03/22/17 14:00 03/24/17 15:13 DC 03/24/17 14:17 200 MLS/HR Vancomycin HCl (Vancomycin Oral Soln) 125 mg TID PO 03/21/17 21:00 03/25/17 09:01 DC 03/24/17 20:57 125 MG Miscellaneous Information (Check Fentanyl Patch Placement) 1 ea QS N/A 03/22/17 17:00 04/21/17 16:59 03/26/17 07:53 1 EA Raspberry (Raspberry Syrup 5ml Cup) 5 ml TID PO 03/21/17 21:00 03/25/17 09:01 DC 03/24/17 20:57 5 ML Acetaminophen 650 mg/Empty Bag 65 ml @ 260 mls/hr TODAY@2030 IV 03/21/17 20:30 03/21/17 23:00 DC 03/21/17 21:00 260 MLS/HR Pantoprazole Sodium (Protonix Tab) 40 mg QAM PO 03/22/17 09:00 04/21/17 08:59 Future Hold 03/24/17 07:40 40 MG Vancomycin HCl 1500 mg/Sodium Chloride 530 ml @ 200 mls/hr 0900 IV 03/22/17 09:00 03/22/17 11:38 DC 03/22/17 09:21 200 MLS/HR Insulin Human Regular 5 units/ Syringe 5 ml @ 1 mls/min TODAY@1300 ONCE IV 03/22/17 13:00 03/22/17 13:04 DC 03/22/17 12:59 1 MLS/MIN Insulin Detemir (Levemir Flexpen/ FlexTouch) 10 unit 1300 ONCE SC 03/22/17 13:00 03/22/17 13:01 DC 03/22/17 13:00 10 UNIT Insulin Detemir (Levemir Flexpen/ FlexTouch) SEE PROTOCOL TEXT HS TN 03/22/17 21:00 03/22/17 23:59 DC 03/22/17 20:18 3 UNIT Insulin Aspart (novoLOG ASPART) SLIDING SCALE If C... 0000,0400 TN 03/23/17 00:00 03/23/17 05:00 DC 03/22/17 23:23 2 UNITS Insulin Human Regular 5 units/ Syringe 5 ml @ 30 mls/min NOW ONCE IV 03/22/17 17:30 03/22/17 17:31 DC 03/22/17 17:40 30 MLS/MIN Insulin Detemir (Levemir Flexpen/ FlexTouch) 6 unit QAM TN 03/23/17 09:00 04/22/17 08:59 03/26/17 08:38 6 UNIT Insulin Detemir (Levemir Flexpen/ FlexTouch) 3 unit HS TN 03/23/17 21:00 04/22/17 20:59 03/25/17 21:35 3 UNIT Vancomycin HCl 1000 mg/Sodium Chloride 270 ml @ 125 mls/hr 0830 IV 03/23/17 08:30 03/23/17 10:40 DC 03/23/17 09:00 125 MLS/HR Fentanyl (Duragesic Patch) 50 mcg NOW ONCE TD 03/23/17 10:30 03/23/17 10:31 DC 03/23/17 10:28 50 MCG Miscellaneous (Fentanyl Patch Remove & Waste) 1 ea Q3D@1030 N/A 03/23/17 10:30 03/23/17 12:00 DC 03/23/17 10:30 1 EA Vancomycin HCl 1000 mg/Sodium Chloride 270 ml @ 125 mls/hr 1000 IV 03/24/17 10:00 03/24/17 12:10 DC 03/24/17 09:40 125 MLS/HR Calcium Gluconate 1000 mg/Sodium Chloride 60 ml @ 240 mls/hr NOW STAT IV 03/24/17 09:49 03/24/17 10:03 DC 03/24/17 10:49 240 MLS/HR Magnesium Sulfate 1 gm/Prmx 100 ml @ 100 mls/hr 1900 IV 03/24/17 19:00 03/24/17 19:59 DC 03/24/17 19:03 100 MLS/HR Potassium Phosphate 15 mmol/ Sodium Chloride 255 ml @ 88 mls/hr TODAY@1900 IV 03/24/17 19:00 03/24/17 21:54 DC 03/24/17 19:03 88 MLS/HR Cephalexin Monohydrate (Keflex Cap) 250 mg BID PO 03/25/17 09:00 04/04/17 08:59 03/26/17 08:36 250 MG Calcium Gluconate 1000 mg/Sodium Chloride 60 ml @ 240 mls/hr NOW ONCE IV 03/25/17 09:00 03/25/17 09:14 DC 03/25/17 09:12 240 MLS/HR Calcitriol (Rocaltrol Cap) 0.25 mcg QAM PO 03/25/17 09:00 04/24/17 08:59 03/26/17 08:36 0.25 MCG Vancomycin HCl 500 mg/Sodium Chloride 260 ml @ 125 mls/hr TODAY@2000 ONCE IV 03/25/17 20:00 03/25/17 22:04 DC 03/25/17 20:25 125 MLS/HR Metronidazole (Flagyl Tab) 500 mg TID PO 03/25/17 21:00 03/26/17 10:55 DC 03/26/17 08:34 500 MG Fentanyl (Duragesic Patch) 50 mcg Q3D@0900 TD 03/26/17 09:00 04/09/17 08:59 03/26/17 08:35 50 MCG Miscellaneous (Fentanyl Patch Remove & Waste) 1 ea Q3D@0859 N/A 03/26/17 08:59 04/25/17 08:58 03/26/17 08:38 1 EA Sodium Phosphate 15 mmol/Sodium Chloride 255 ml @ 88 mls/hr TODAY@0830 IV 03/26/17 08:30 03/26/17 11:24 03/26/17 08:42 88 MLS/HR Objective Vital Signs Date Time Temp Pulse Resp B/P (MAP) Pulse Ox O2 Delivery O2 Flow Rate FiO2 03/26/17 08:00 Room Air 03/26/17 07:06 36.7 76 16 133/70 (91) 98 Room Air 03/26/17 04:00 Room Air 03/26/17 03:06 36.8 79 16 124/68 (86) 96 Room Air 03/26/17 00:00 Room Air 03/25/17 23:37 36.8 79 18 117/69 (85) 96 Room Air 03/25/17 20:22 97 Room Air 03/25/17 16:06 36.8 79 18 118/58 (78) 97 Room Air 03/25/17 16:00 94 Room Air 03/25/17 12:30 Room Air 03/25/17 11:44 37.3 102 20 132/70 (90) 94 Room Air Physical Exam General Appearance: no apparent distress Eyes: normal inspection ENT: normal ENT inspection Neck: supple Respiratory/Chest: normal breath sounds, no respiratory distress, no accessory muscle use Cardiovascular: regular rate, rhythm, + systolic murmur (3/6) Abdomen: normal bowel sounds, non tender, soft Extremities: normal range of motion, normal inspection, + pedal edema (trace pedal edema), + pertinent finding (stasis dermatitis noted ) Neurologic/Psychiatric: alert, normal mood/affect, oriented x 3 Skin: normal color, warm/dry, no rash Lymphatic: no adenopathy Laboratory Results Results Past 24 Hours Test 03/25/17 11:58 03/25/17 16:53 03/25/17 20:36 03/26/17 07:13 Range/Units Bedside Glucose 192 144 116 70-90 mg/dl White Blood Count 10.34 4.8-10.8 K/uL Red Blood Count 3.39 4.2-5.4 M/uL Hemoglobin 9.6 12.0-16.0 g/dL Hematocrit 30.4 37-47 % Mean Corpuscular Volume 89.7 80-100 fL Mean Corpuscular Hemoglobin 28.3 25-34 pg Mean Corpuscular Hemoglobin Concent 31.6 32-36 g/dl Platelet Count 186 130-400 K/uL Mean Platelet Volume 10.7 7.4-10.4 fL Neutrophils (%) (Auto) 80.0 % Lymphocytes (%) (Auto) 8.2 % Monocytes (%) (Auto) 6.0 % Eosinophils (%) (Auto) 1.7 % Basophils (%) (Auto) 0.3 % Neutrophils # (Auto) 8.27 1.4-6.5 K/uL Lymphocytes # (Auto) 0.85 1.2-3.4 K/uL Monocytes # (Auto) 0.62 0.11-0.59 K/uL Eosinophils # (Auto) 0.18 0-0.5 K/uL Basophils # (Auto) 0.03 0-0.2 K/uL RDW Standard Deviation 59.1 36.4-46.3 fL RDW Coefficient of Variation 18.1 11.5-14.5 % Immature Granulocyte % (Auto) 3.8 % Immature Granulocyte # (Auto) 0.39 0.00-0.02 K/uL Sodium Level 140 136-145 mmol/L Potassium Level 4.1 3.5-5.1 mmol/L Chloride Level 112 98-107 mmol/L Carbon Dioxide Level 19 21-32 mmol/L Anion Gap 9.0 3-11 mmol/L Blood Urea Nitrogen 29 7-18 mg/dl Creatinine 1.40 0.60-1.20 mg/dl Est Creatinine Clear Calc Drug Dose 27.2 ml/min Estimated GFR () 40.7 Estimated GFR (Non- 35.1 BUN/Creatinine Ratio 20.8 10-20 Random Glucose 109 70-99 mg/dl Phosphorus Level 1.9 2.5-4.9 mg/dl Magnesium Level 1.8 1.8-2.4 mg/dl Total Bilirubin 0.5 0.2-1 mg/dl Aspartate Amino Transf (AST/SGOT) 11 15-37 U/L Alanine Aminotransferase (ALT/SGPT) 7 12-78 U/L Alkaline Phosphatase 116 45-117 U/L Total Protein 5.5 6.4-8.2 gm/dl Albumin 1.7 3.4-5.0 gm/dl Globulin 3.8 2.5-4.0 gm/dl Albumin/Globulin Ratio 0.4 0.9-2 Random Vancomycin Level 22.3 mcg/ml Test 03/26/17 07:32 Range/Units Bedside Glucose 114 70-90 mg/dl Microbiology Results 03/25/17 Blood Culture, Received Pending 03/25/17 Blood Culture, Received Pending Assessment and Plan This is an 81 yo f with a history of 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 The UA did not culture E Coli however the patient did have a positive blood culture for E Coli and E faecalis. She was treated with vanco and Cefepime and transitioned to Vanco and keflex based on sensitivities. As she was having increased number of stools so a C diff was ordered and was positive. She was placed on qid dosing of vanco with the plan to have an extended taper. Sepsis secondary to E coli/ E Faecealis infection, source potentially vs GI? - UA is reflective of the source however UCx did not grow similar bacteria - Renal USG did not reveal an abscess - Transitioned to Vanco ( day 5) and Keflex ( day 2) - USG gall - no overt cholecystitis, history of cholelithiasis - repeat blood cultures repeat pending PIERCE on CKD secondary to UTI and dehydration- resolved - Patient has been receiving gentle rehydration - Significant improvement in Cr- back to BL - Appreciate Nephro input - Bl is approx 1.5-1.7 C Diff - As she was taking the tid Vanco already plan is to increase to qid - taper based on ID History of RCC - Dr Lomeli with [facility] [place] Hypophosphatemia/ hypocalcemia/ Elevated PTH - most likely secondary in nature - Vit D Def - Ergocalciferol supplementation Hypomagnesemia - Continue to follow and replete Prn DVT - patient has a history of bleeding with coumadin, heparin refused - SCD Continued [facility] stay due to: other Discharge planning: home with home health Reviewed: Pt Seen/Exam by Me History feeling much better today. Constitutional: denies: fever Respiratory: negative: short of breath Cardiovascular: denies chest pain Gastrointestinal/Abdominal: negative: abdominal pain General Appearance: no apparent distress (more alert and communicative than yesterday) Respiratory: lungs clear, no respiratory distress Cardiovascular: regular rate, rhythm Gastrointestinal: soft Neurologic/Psychiatric: alert, oriented x 3 Skin Characteristics: warm/dry Assessment/Plan I have reviewed the medical record and performed a history and physical examination of this patient today. I have discussed the case with Dr. Morley. The above note reflects my findings, conclusions, and recommendations.
--- NOTE | 2017-03-26 12:27 | Gastrointestinal Consultation ---
Gastrointestinal Consultation Date of Consultation: Mar 26, 2017 Attending Physician: Peyman Zamudio Consulting Physician: Sharan Reason for Consultation: c.diff, enterococcus faecalis History of Present Illness Patient is a 81 year old female w/ PMH significant for renal cell carcinoma S/P L Nephrectomy (1997) with mets now on Opdivo, HTN, CKD-3, CHF, T2DM, hypothyroidism, GERD and others listed below who presented through the ED for evaluation of hypotension and lower urinary symptoms found to have UTI (3 organisms present --> repeat without any growth) + blood cultures (E Coli and E faecalis) who subsequently developed loose, watery diarrhea which was + for c.diff. GI was consulted for recommendations regarding imaging testing given E faecalis growth. Pt was seen in collaboration with Dr. Tsang. Family is at bedside. Pt tells us she is feeling well. Developed looser stools yesterday which was + for c.diff. She is not having any fever, chills, chest pain, SOB, abdominal pain, black/bloody stools. GB US 03/25/17: Suboptimal evaluation due to the patient's condition and overlapping bowel. The gallbladder is not well-visualized but appears contracted and filled with stones. Common bile duct stent is again noted. Multiple hepatic masses are not significantly changed. Renal US 03/21/17: The right kidney is atrophic and without hydronephrosis. The left kidney is surgically absent. The bladder was decompressed and grossly unremarkable. Markedly enlarged and heterogeneous liver. Chest XR 03/21/17: Mild stable cardiomegaly. Unchanging destructive lesion left pulmonary apex. Diaphragms are smooth. There is a described pathologic fracture humeral neck on the left. ERCP 08/12/15: plastic biliary stent exchanged for metal stent Colonoscopy: unknown Past Medical/Surgical History Medical Problems: (1) Acute renal failure Status: Acute (2) Sepsis Status: Acute (3) Sepsis Status: Acute (4) UTI (urinary tract infection) Status: Acute (5) UTI (urinary tract infection) Status: Acute Past Medical History: DVTs, RCC, HTN, CKD-3, CHF, T2DM, hypothyroidism, GERD Past Surgical History: ERCP, EGD, EUS, nephrectomy 1997, vena cava filter placement, x 4 Family History Patient reports no known family medical history. Social History Smoking Status: Never Smoker Alcohol Use: none Drug Use: none Marital Status: Housing Status: lives with family Occupation Status: retired Allergies Coded Allergies: Adhesives (Verified Allergy, Mild, LOCAL SKIN IRRITATION, BLISTERS, ) Current Medications Home Meds and Scripts Medications Dose Route/Sig Max Daily Dose Days Date Category Dose Instructions Lisinopril 10 Mg Tab 10 Mg PO DAILY 03/21/17 Reported Tylenol (Acetaminophen) 325 Mg Tab 650 Mg PO Q4 PRN 03/21/17 Reported ALTERNATES DOSES WITH NORCO Culturelle (Lactobacillus-Inulin) 1 Cap Cap 1 Cap PO DAILY 03/21/17 Reported Opdivo (Nivolumab) Unknown Strength Inj 1 Dose IV [id number] 03/21/17 Reported Zofran (Ondansetron HCl) 8 Mg Tab 8 Mg PO Q8 PRN 03/21/17 Reported Levothyroxine Sodium 200 Mcg Tab 200 Mcg PO DAILY 03/21/17 Reported Fentanyl 50 Mcg Tdsy 50 Mcg TD Q3D@2000 02/15/17 Rx Miralax (Polyethylene) 17 Gm Pow 17 Gm PO DAILY PRN 30 02/11/17 Rx Lasix (Furosemide) 20 Mg Tab 20 Mg PO DAILY PRN 02/08/17 Rx Amanda 7.5MG/325MG (Acetaminophen/Hydrocodone Bitart) Tab 1-2 Tab PO Q4 PRN 02/07/17 Reported PRN PAIN [Opdiva] 1 Dose IV. [id number] 02/07/17 Reported Levemir Flextouch (Insulin Detemir) 100 Unit/Ml Inj 3 Units SQ QPM 02/07/17 Reported Levemir Flextouch (Insulin Detemir) 100 Unit/Ml Inj 6 Units SQ QAM 02/07/17 Reported Xgeva (Denosumab) 120 Mg/1.7 Ml Inj 1 Dose SC MONTHLY 03/16/16 Reported Protonix (Pantoprazole Sodium) 40 Mg Tab 40 Mg PO DAILY 05/31/15 Reported Senokot (Senna) 8.6 Mg Tab 1 Tab PO DAILY PRN 01/10/12 Reported Review of Systems Constitutional: No fever, No chills Respiratory: No cough, No shortness of breath Cardiac: No chest pain, No edema Abdomen: + diarrhea, No pain, No nausea, No vomiting, No constipation, No GI bleeding Physical Exam Date Time Temp Pulse Resp B/P (MAP) Pulse Ox O2 Delivery O2 Flow Rate FiO2 6/27/17 12:00 Room Air 03/26/17 11:38 36.6 76 16 150/70 (96) 97 Room Air 03/26/17 08:00 Room Air 03/26/17 07:06 36.7 76 16 133/70 (91) 98 Room Air 03/26/17 04:00 Room Air 03/26/17 03:06 36.8 79 16 124/68 (86) 96 Room Air 03/26/17 00:00 Room Air 03/25/17 23:37 36.8 79 18 117/69 (85) 96 Room Air 03/25/17 20:22 97 Room Air 03/25/17 16:06 36.8 79 18 118/58 (78) 97 Room Air 03/25/17 16:00 94 Room Air 03/25/17 12:30 Room Air General Appearance: no apparent distress Eyes: PERRL ENT: hearing grossly normal Neck: supple Respiratory/Chest: lungs clear, normal breath sounds, no respiratory distress, no accessory muscle use Cardiovascular: regular rate, rhythm Abdomen: normal bowel sounds, non tender, soft, no organomegaly Neurologic/Psych: alert, normal mood/affect, oriented x 3 Skin: warm/dry, no rash Laboratory Results Last 24 Hours Test 03/25/17 16:53 03/25/17 20:36 03/26/17 07:13 03/26/17 07:32 Bedside Glucose 144 mg/dl 116 mg/dl 114 mg/dl White Blood Count 10.34 K/uL Red Blood Count 3.39 M/uL Hemoglobin 9.6 g/dL Hematocrit 30.4 % Mean Corpuscular Volume 89.7 fL Mean Corpuscular Hemoglobin 28.3 pg Mean Corpuscular Hemoglobin Concent 31.6 g/dl Platelet Count 186 K/uL Mean Platelet Volume 10.7 fL Neutrophils (%) (Auto) 80.0 % Lymphocytes (%) (Auto) 8.2 % Monocytes (%) (Auto) 6.0 % Eosinophils (%) (Auto) 1.7 % Basophils (%) (Auto) 0.3 % Neutrophils # (Auto) 8.27 K/uL Lymphocytes # (Auto) 0.85 K/uL Monocytes # (Auto) 0.62 K/uL Eosinophils # (Auto) 0.18 K/uL Basophils # (Auto) 0.03 K/uL RDW Standard Deviation 59.1 fL RDW Coefficient of Variation 18.1 % Immature Granulocyte % (Auto) 3.8 % Immature Granulocyte # (Auto) 0.39 K/uL Sodium Level 140 mmol/L Potassium Level 4.1 mmol/L Chloride Level 112 mmol/L Carbon Dioxide Level 19 mmol/L Anion Gap 9.0 mmol/L Blood Urea Nitrogen 29 mg/dl Creatinine 1.40 mg/dl Est Creatinine Clear Calc Drug Dose 27.2 ml/min Estimated GFR () 40.7 Estimated GFR (Non- 35.1 BUN/Creatinine Ratio 20.8 Random Glucose 109 mg/dl Phosphorus Level 1.9 mg/dl Magnesium Level 1.8 mg/dl Total Bilirubin 0.5 mg/dl Aspartate Amino Transf (AST/SGOT) 11 U/L Alanine Aminotransferase (ALT/SGPT) 7 U/L Alkaline Phosphatase 116 U/L Total Protein 5.5 gm/dl Albumin 1.7 gm/dl Globulin 3.8 gm/dl Albumin/Globulin Ratio 0.4 Random Vancomycin Level 22.3 mcg/ml Test 03/26/17 11:21 Bedside Glucose 178 mg/dl Impression This is an 81 year old female with a history of RCC with mets to the bone and liver s/p ERCP in 2014 with CBD metal stents who was admitted for weakness and urinary symptoms found to have + blood culture for E Coli and E faecalis. She subsequently developed diarrhea yesterday which was + for c.diff. GI was consulted for recommendations on further imaging for evaluation of source of E. faecalis infection as source of infection is likely to be biliary related. Specifically on exam there is now abdominal tenderness, fever, chills. Liver enzymes have been WNL. She has had numerous CT scans of abd/pelvis. Most recent scans were reviewed with Dr. Pan. A repeat scan is likely low yield given met burden to her liver - difficult to differentiate liver mets from abscess collection. Plan Low yield on additional imaging We will defer ordering additional imaging after discussion with Dr. Pan Appreciate ID input QID PO Melitono Will need taper & extended course of vancomycin as will be on ABX for + blood culture Extended course of ABX for + culture as source is unknown and hepatic abscess cannot be ruled out Continue present therapy GI will sign off. Please call with any questions or concerns. ATTESTATION: I have performed a history and physical examination of this patient and reviewed the electronic record. Specifically, on review of imaging with radiologist, review of electronic record and bedside examination the most likely source of infection is a necrotic tumor in the liver. Given the extent of metastatic disease, there is no easy way to distinguish a true hepatic abscess from infected tumor necrosis. I have discussed the case with SY Parr. The above note reflects my findings, conclusions, and recommendations. Magdiel Tsang MD
[2017-03-26] MEDS: RASPBERRY SYRUP 5 ML UDP PO SCH ×3 (12:35→21:45)
[2017-03-26] MEDS: VANCOMYCIN HCL 125 MG/2.5ML SOLN PO SCH ×3 (12:35→21:44)
[2017-03-26 13:05] LABS: CALCIUM 6.2 mg/dl (8.5-10.1)
--- NOTE | 2017-03-26 14:25 | Infectious Disease Progress Nt ---
Progress Note Date of Service Mar 26, 2017. Subjective Pt evaluation today including: conversation w/ patient, conversation w/ family , physical exam, chart review, lab review, review of studies, conversation w/ senior recruitment consultant, review of inpatient medication list Patient is feeling improved today. She is eating lunch while I am in the room today. She complains of no abdominal pain this morning. Her white blood cell count was 10.34 today. Her creatinine continues to improve and was 1.40 today. C diff toxin was positive. Repeat blood cultures pending. Ultrasound of the gallbladder showed that the gallbladder was not well visualized, but a common bile duct stent was noted. Multiple hepatic masses or not significantly changed on ultrasound. She has been afebrile. Her stools have not been overly watery today. I did discuss this patient with Dr. Morley. All Other Systems: Reviewed and Negative Medications Current Inpatient Medications Medications (Trade) Dose Ordered Sig/Suleiman Route Start Time Stop Time Status Last Admin Dose Admin Acetaminophen (Tylenol Tab) 650 mg Q4H PRN PO 03/21/17 15:45 04/20/17 15:44 Al Hydrox/Mg Hydrox/Simethicone (Maalox Max Susp) 15 ml Q4H PRN PO 03/21/17 15:45 04/20/17 15:44 Magnesium Hydroxide (Milk Of Magnesia Susp) 30 ml Q12H PRN PO 03/21/17 15:45 04/20/17 15:44 Ondansetron HCl (Zofran Inj) 4 mg Q6H PRN IV 03/21/17 15:45 04/20/17 15:44 03/25/17 09:09 4 MG Polyethylene (Miralax Powder Packet) 17 gm DAILY PRN PO 03/21/17 15:45 04/20/17 15:44 Insulin Aspart (novoLOG ASPART) SLIDING SCALE If C... ACHS SC 03/21/17 16:00 04/20/17 15:59 03/26/17 12:38 4 UNITS Glucose (Glucose 40% Gel) 15-30 GRAMS 15 GRAMS... UD PRN PO 03/21/17 15:45 04/20/17 15:44 Glucose (Glucose Chew Tab) 4-8 Tablets 4 Tabl... UD PRN PO 03/21/17 15:45 04/20/17 15:44 Dextrose (Dextrose 50% 50ML Syringe) 25-50ML OF 50% DW IV FOR... UD PRN IV 03/21/17 15:45 04/20/17 15:44 Glucagon (Glucagon Inj) 1 mg UD PRN SQ 03/21/17 15:45 04/20/17 15:44 Acetaminophen/ Hydrocodone Bitart ([place] 7.5/325 Tab) 1 tab for mild-moderate pain (p... Q4 PRN PO 03/21/17 15:45 04/04/17 15:44 03/22/17 09:05 1 TAB Levothyroxine Sodium (Synthroid Tab) 200 mcg DAILYBB PO 03/22/17 06:30 04/21/17 06:29 03/26/17 06:12 200 MCG Ondansetron HCl (Zofran Tab) 8 mg Q8 PRN PO 03/21/17 15:45 04/20/17 15:44 Senna (Senokot Tab) 8.6 mg DAILY PRN PO 03/21/17 15:45 04/20/17 15:44 Lactobacillus Acidophilus (Floranex Tab) 1 tab DAILY PO 03/22/17 09:00 04/21/17 08:59 03/26/17 08:35 1 TAB Famotidine (Pepcid Tab) 20 mg QAM PO 03/22/17 09:00 04/21/17 08:59 Miscellaneous Information (Check Fentanyl Patch Placement) 1 ea QS N/A 03/22/17 17:00 04/21/17 16:59 03/26/17 07:53 1 EA Acetaminophen 650 mg/Empty Bag 65 ml @ 260 mls/hr Q6H PRN IV 03/21/17 20:45 04/20/17 20:44 Pantoprazole Sodium (Protonix Tab) 40 mg QAM PO 03/22/17 09:00 04/21/17 08:59 Future Hold 03/24/17 07:40 40 MG Vancomycin HCl (Consult) 1 ea UD PRN N/A 03/22/17 08:45 04/21/17 08:44 Future hold Miscellaneous Information (Consult Glycemic Management Pharmacy) 1 ea UD PRN N/A 03/22/17 12:14 04/21/17 12:13 Insulin Detemir (Levemir Flexpen/ FlexTouch) 6 unit QAM SC 03/23/17 09:00 04/22/17 08:59 03/26/17 08:38 6 UNIT Insulin Detemir (Levemir Flexpen/ FlexTouch) 3 unit HS SC 03/23/17 21:00 04/22/17 20:59 03/25/17 21:35 3 UNIT Cephalexin Monohydrate (Keflex Cap) 250 mg BID PO 03/25/17 09:00 04/04/17 08:59 03/26/17 08:36 250 MG Ergocalciferol (Vitamin D Cap) 50,000 interunit Mo@0900 PO 04/01/17 09:00 06/17/17 09:01 Calcitriol (Rocaltrol Cap) 0.25 mcg QAM PO 03/25/17 09:00 04/24/17 08:59 03/26/17 08:36 0.25 MCG Fentanyl (Duragesic Patch) 50 mcg Q3D@0900 TD 03/26/17 09:00 04/09/17 08:59 03/26/17 08:35 50 MCG Miscellaneous (Fentanyl Patch Remove & Waste) 1 ea Q3D@0859 N/A 03/26/17 08:59 04/25/17 08:58 03/26/17 08:38 1 EA Vancomycin HCl (Vancomycin Oral Soln) 125 mg QID PO 03/26/17 13:00 04/09/17 12:59 03/26/17 12:35 125 MG Raspberry (Raspberry Syrup 5ml Cup) 5 ml QID PO 03/26/17 13:00 04/09/17 12:59 03/26/17 12:35 5 ML Objective Vital Signs Date Time Temp Pulse Resp B/P (MAP) Pulse Ox O2 Delivery O2 Flow Rate FiO2 03/26/17 12:00 Room Air 03/26/17 11:38 36.6 76 16 150/70 (96) 97 Room Air 03/26/17 08:00 Room Air 03/26/17 07:06 36.7 76 16 133/70 (91) 98 Room Air 03/26/17 04:00 Room Air 03/26/17 03:06 36.8 79 16 124/68 (86) 96 Room Air 03/26/17 00:00 Room Air 03/25/17 23:37 36.8 79 18 117/69 (85) 96 Room Air 03/25/17 20:22 97 Room Air 03/25/17 16:06 36.8 79 18 118/58 (78) 97 Room Air 03/25/17 16:00 94 Room Air Physical Exam General Appearance: WD/WN, no apparent distress Eyes: normal inspection, sclerae normal ENT: hearing grossly normal Neck: supple, trachea midline Respiratory/Chest: no respiratory distress, no accessory muscle use Cardiovascular: + pertinent finding (regular rate) Extremities: normal range of motion Neurologic/Psychiatric: alert, normal mood/affect Skin: normal color, warm/dry, no rash Laboratory Results ABDOMINAL ULTRASOUND, RIGHT UPPER QUADRANT HISTORY: Sepsis. r/o cholecystitis . COMPARISON: Abdomen and pelvis CT 02/12/2017. Abdominal ultrasound 02/08/2017. FINDINGS: Pancreas: Obscured by overlying bowel gas. Liver: Multiple hepatic masses are again noted. Gallbladder: Gallbladder is not well-visualized but appears contracted and filled with stones. Gallbladder wall is not well assessed. CBD: A common bile duct stent is again noted. Right kidney: No hydronephrosis. IMPRESSION: 1. Suboptimal evaluation due to the patient's condition and overlapping bowel. 2. The gallbladder is not well-visualized but appears contracted and filled with stones. 3. Common bile duct stent is again noted. 4. Multiple hepatic masses are not significantly changed. Item Value Date Time Blood Culture Received 03/25/17 1356 Blood Pending Blood Culture Received 03/25/17 1345 Blood Pending C.difficile Toxin B Gene (PCR) - Final Complete 03/25/17 0000 Stool Positive for C. difficile toxin B gene Last 24 Hours Test 03/25/17 16:53 03/25/17 20:36 03/26/17 07:13 03/26/17 07:32 Bedside Glucose 144 mg/dl 116 mg/dl 114 mg/dl White Blood Count 10.34 K/uL Red Blood Count 3.39 M/uL Hemoglobin 9.6 g/dL Hematocrit 30.4 % Mean Corpuscular Volume 89.7 fL Mean Corpuscular Hemoglobin 28.3 pg Mean Corpuscular Hemoglobin Concent 31.6 g/dl Platelet Count 186 K/uL Mean Platelet Volume 10.7 fL Neutrophils (%) (Auto) 80.0 % Lymphocytes (%) (Auto) 8.2 % Monocytes (%) (Auto) 6.0 % Eosinophils (%) (Auto) 1.7 % Basophils (%) (Auto) 0.3 % Neutrophils # (Auto) 8.27 K/uL Lymphocytes # (Auto) 0.85 K/uL Monocytes # (Auto) 0.62 K/uL Eosinophils # (Auto) 0.18 K/uL Basophils # (Auto) 0.03 K/uL RDW Standard Deviation 59.1 fL RDW Coefficient of Variation 18.1 % Immature Granulocyte % (Auto) 3.8 % Immature Granulocyte # (Auto) 0.39 K/uL Sodium Level 140 mmol/L Potassium Level 4.1 mmol/L Chloride Level 112 mmol/L Carbon Dioxide Level 19 mmol/L Anion Gap 9.0 mmol/L Blood Urea Nitrogen 29 mg/dl Creatinine 1.40 mg/dl Est Creatinine Clear Calc Drug Dose 27.2 ml/min Estimated GFR () 40.7 Estimated GFR (Non- 35.1 BUN/Creatinine Ratio 20.8 Random Glucose 109 mg/dl Calcium Level 6.2 mg/dl Phosphorus Level 1.9 mg/dl Magnesium Level 1.8 mg/dl Total Bilirubin 0.5 mg/dl Aspartate Amino Transf (AST/SGOT) 11 U/L Alanine Aminotransferase (ALT/SGPT) 7 U/L Alkaline Phosphatase 116 U/L Total Protein 5.5 gm/dl Albumin 1.7 gm/dl Globulin 3.8 gm/dl Albumin/Globulin Ratio 0.4 Random Vancomycin Level 22.3 mcg/ml Test 03/26/17 11:21 Bedside Glucose 178 mg/dl Assessment and Plan Patient with Enterococcus and E. Coli bacteremia with likely Versus GI source. Repeat blood cultures are pending. C diff toxin was positive once again. The patient was started on p.o. Flagyl, but after discussion with Dr. Morley was changed to p.o. vancomycin 125 mg q.i.d.. The patient likely will require a long tapering course of p.o. vancomycin, and possibly chronic suppression. Will continue the patient on current IV antibiotic therapy with IV vancomycin and p.o. Keflex pending repeat blood cultures. Will also await GI opinion. Still question whether not this patient will need further GI imaging. We will continue to follow along. Case reviewed and agree with above assessment.
--- NOTE | 2017-03-26 14:39 | Pharmacy Progress Note ---
Pharmacy Abx Dose Short Note Date of Service Mar 26, 2017. Assessment & Plan Assessment 81 year old female receiving Vancomycin IV and Keflex PO for treatment of E. faecalis/E.coli bacteremia, likely or GI source. * Day # 5 of antimicrobial therapy * Repeat BC pending BLD CULT Final 03/24/17-1415 1. ENTEROCOCCUS FAECALIS Target Route Dose RX AB Cost M.I.C. IQ ------ ----- ------ -- ------ -------- - ------ AMPICILLIN S <=2 GENT SYNERGY S <=500 VANCOMYCIN S 1 PENICILLIN S 2 DAPTOMYCIN S 2 STREP SYNERGY R >1000 Streptomycin Synergy Screen R Gentamicin Synergy Screen S 2. ESCHERICHIA COLI Target Route Dose RX AB Cost M.I.C. IQ ------ ----- ------ -- ------ -------- - ------ TRIMET/SULFA S <=2/38 AMPICILLIN R >16 AMPICILLIN/SUL I 16/8 CEFAZOLIN S <=8 CEFOTAXIME S <=2 CEFTRIAXONE S <=1 CEFEPIME S <=4 CEFUROXIME S <=4 IMIPENEM S <=1 GENTAMICIN S <=4 TOBRAMYCIN S <=4 AMIKACIN S <=16 CIPROFLOXACIN S <=1 LEVOFLOXACIN S <=2 ERTAPENEM S <=1 PIP/TAZO S <=16 S = SENSITIVE I = INTERMEDIATE R = RESISTANT Plan Continue Vancomycin IV and Kefelx (not a consult) * Vancomycin has been dosed based on random levels due to PIERCE. * Trough level of 22.3 mcg/mL is therapeutic. Goal trough level for bacteremia: 15 - 20 mcg/mL. * Scr improved from 1.9 mg/dL to 1.4 mg/dL today(at baseline) * I have estimated trough level to decrease to ~ 18 mcg/mL at 1600 today. Will give a one time dose of 500 mg IV today at 1600. * Random level ordered for 03/27 am. * If renal function remains stable, will start patient on q24h dose of Vancomycin IV tomorrow. Pharmacy will continue to follow and will adjust dose/frequency as necessary. Thank you.
[2017-03-26] MEDS ORDERED: VANCOMYCIN INJ 500 MG in SODIUM CHLORIDE 0.9% 250ML 250 ML IV ONE (16:00)
[2017-03-26] MEDS ORDERED: BOOST GLUCOSE CONTROL PO SCH (17:00)
[2017-03-26] MEDS ORDERED: METOPROLOL TARTRATE 25 MG TAB PO ONE (19:30)
[2017-03-27] VITALS: O2SAT 97
[2017-03-27 03:55] VITALS: BP 113/67; PULSE 73; TEMP 36.6; O2SAT 95
[2017-03-27 04:00] VITALS: O2SAT 97
[2017-03-27 05:56] LABS: HEMATOCRIT 27.2 % (37-47); MEAN CELL VOLUME 87.5 fL (80-100); MEAN CORPUSCULAR HEMOGLOBIN 28.3 pg (25-34); MEAN CORPUSCULAR HGB CONC 32.4 g/dl (32-36); MEAN PLATELET VOLUME 9.7 fL (7.4-10.4); PLATELET COUNT 264 K/uL (130-400); RED BLOOD COUNT 3.11 M/uL (4.2-5.4); WHITE BLOOD COUNT 10.64 K/uL (4.8-10.8)
[2017-03-27] MEDS: LEVOTHYROXINE 200 MCG TAB PO SCH (06:22)
[2017-03-27 06:36] LABS: ALT/SGPT < 6 U/L (12-78); AST/SGOT 10 U/L (15-37); BLOOD UREA NITROGEN 23 mg/dl (7-18); BUN/CREATININE RATIO 19.3 (10-20); CALCIUM 6.1 mg/dl (8.5-10.1); CARBON DIOXIDE 18 mmol/L (21-32); CHLORIDE 113 mmol/L (98-107); GLUCOSE 163 mg/dl (70-99); MAGNESIUM 1.6 mg/dl (1.8-2.4); POTASSIUM 4.1 mmol/L (3.5-5.1); SODIUM 140 mmol/L (136-145)
[2017-03-27 06:39] LABS: ALB/GLOB RATIO 0.4 (0.9-2); ALKALINE PHOSPHATASE 101 U/L (45-117); PHOSPHORUS 2.4 mg/dl (2.5-4.9)
[2017-03-27] MEDS ORDERED: SODIUM PHOSPHATE 3 MMOL/1 ML INFUSION IV STA (07:00)
[2017-03-27] MEDS ORDERED: MAGNESIUM SULFATE 1GM / D5W 1 GM in PREMIXED IN D5W 100 ML IV SCH (07:15)
[2017-03-27] MEDS ORDERED: SODIUM PHOSPHATE INJ 15 MMOL in SODIUM CHLORIDE 0.9% 250ML 250 ML IV SCH (07:30)
[2017-03-27] MEDS: ONDANSETRON INJ 2 MG/ML 2 ML VIAL IV PRN (07:32)
[2017-03-27 07:34] VITALS: BP 135/67; PULSE 71; TEMP 36.7; O2SAT 97
[2017-03-27] MEDS: POT PHOSPHATE MONOBASIC W/ SOD TAB PO SCH ×3 (08:27→16:51)
[2017-03-27] MEDS: FAMOTIDINE 20 MG TAB PO SCH (08:27)
[2017-03-27] MEDS: CEPHALEXIN MONOHYDRATE 250 MG CAP PO SCH (08:27)
[2017-03-27] MEDS: LACTOBACILLUS ACIDOPHILUS (FLORANEX) TAB PO SCH (08:28)
[2017-03-27] MEDS: CALCITRIOL 0.25 MCG CAP PO SCH (08:28)
[2017-03-27] MEDS: RASPBERRY SYRUP 5 ML UDP PO SCH ×3 (08:28→16:50)
[2017-03-27] MEDS: VANCOMYCIN HCL 125 MG/2.5ML SOLN PO SCH ×3 (08:28→16:48)
[2017-03-27] MEDS: CHECK FENTANYL PATCH PLACEMENT SCH ×2 (08:29→16:00)
[2017-03-27] MEDS: INSULIN DETEMIR FLEXPEN/FLEX TOUCH 100 UNITS/ML 3ML SC SCH (08:33)
[2017-03-27] MEDS: INSULIN ASPART 100 UNITS/ML 3 ML PEN SC SCH ×2 (08:33→12:48)
[2017-03-27] MEDS ORDERED: FUROSEMIDE 20 MG TAB PO ONE (08:45)
[2017-03-27] MEDS ORDERED: MAGNESIUM OXIDE 400 MG TAB PO SCH (09:00)
[2017-03-27] MEDS ORDERED: METOPROLOL TARTRATE 25 MG TAB PO SCH (09:00)
--- NOTE | 2017-03-27 09:26 | Pharmacy Progress Note ---
Glycemic Control Progress Note Date of Service Mar 27, 2017. Scope Glycemic Pharmacist consulted for glycemic control to write orders per [facility] inpatient glycemic control protocol. Objective Accuchecks BSG (last 24hrs): Test 03/26/17 11:21 03/26/17 16:17 03/26/17 19:58 03/27/17 05:18 Bedside Glucose 178 mg/dl (70-90) 233 mg/dl (70-90) 263 mg/dl (70-90) Random Glucose 163 mg/dl (70-99) Test 03/27/17 07:30 Bedside Glucose 173 mg/dl (70-90) Recent Pertinent Medications The patient is currently receiving: * Basal insulin: Levemir 6 units in the AM + 3 units in the PM * Correctional Insulin: Novolog Correction per scale ACHS Goal Range: Low 140 mg/dL - High 160 mg/dL Correction Factor: 25 mg/dL/unit * Prandial insulin: Per carb ratio of 1 unit per 9 grams CHO consumed Outpatient Anti-Diabetic Meds Basal Insulin Assessment & Plan ASSESSMENT: * See progress note from 03/22/17 for more background info, in short: * Pt receiving SQ basal bolus insulin regimen for hyperglycemia secondary to baseline DM (basal insulin doses missed on admission and AM),stress/infection * Patient is currently receiving average of ~23 units of insulin per day * BSGs 114,178,233,263 over the past 24hrs * Changes needed to insulin regimen: * AM Fasting BSG = 173 mg/dl. This is above goal range for patient based on inpatient targets and co-morbidities. Patient is currently on home regimen but I believe she could tolerate 20% increase. Increase PM Levemir dose only. * Post-prandial BSGs rise through the day. Tighten goal range and tighten CF/ CR. Continue to titrate based on BSG trend. PLAN FOR INPATIENT GLYCEMIC CONTROL: * Basal insulin: Increase * Levemir 6 units SQ in AM + 5 units SQ in PM * Bolus insulin: Tighten * NovoLog per scale ACHS or Q6hrs while NPO * Goal Range: Low 120mg/dL - High 150 mg/dL * Correction Factor: 20 mg/dL/unit * Nutritional / Prandial insulin per carb ratio of 1 unit per 8 grams CHO consumed * Please note that the plan above was derived based on current level of insulin resistance and hospital stress. These recommendations are appropriate for inpatient admission only. Plan of care upon discharge will need to be reassessed to avoid potential outpatient hypo/hyperglycemia. Thank you.
--- NOTE | 2017-03-27 09:26 | Pharmacy Progress Note ---
Pharmacy Abx Dose Short Note Date of Service Mar 27, 2017. Assessment & Plan Assessment 81 year old female receiving Vancomycin IV and Keflex PO for treatment of E. faecalis/E.coli bacteremia, likely or GI source. * Day # 6 of antimicrobial therapy * Repeat BC reported NGTD BLD CULT Final 03/24/17-1415 1. ENTEROCOCCUS FAECALIS Target Route Dose RX AB Cost M.I.C. IQ ------ ----- ------ -- ------ -------- - ------ AMPICILLIN S <=2 GENT SYNERGY S <=500 VANCOMYCIN S 1 PENICILLIN S 2 DAPTOMYCIN S 2 STREP SYNERGY R >1000 Streptomycin Synergy Screen R Gentamicin Synergy Screen S 2. ESCHERICHIA COLI Target Route Dose RX AB Cost M.I.C. IQ ------ ----- ------ -- ------ -------- - ------ TRIMET/SULFA S <=2/38 AMPICILLIN R >16 AMPICILLIN/SUL I 16/8 CEFAZOLIN S <=8 CEFOTAXIME S <=2 CEFTRIAXONE S <=1 CEFEPIME S <=4 CEFUROXIME S <=4 IMIPENEM S <=1 GENTAMICIN S <=4 TOBRAMYCIN S <=4 AMIKACIN S <=16 CIPROFLOXACIN S <=1 LEVOFLOXACIN S <=2 ERTAPENEM S <=1 PIP/TAZO S <=16 S = SENSITIVE I = INTERMEDIATE R = RESISTANT Plan Continue Vancomycin IV and Keflex PO (not a consult) * Trough level of 20.7 mcg/mL is therapeutic. Goal trough level for bacteremia: 15 - 20 mcg/mL. * Vancomycin has previously been dosed based on random levels due to PIERCE, which has resolved. Scr improved to 1.2 mg/dL today. * Will start patient on scheduled daily dose of Vancomycin at this time. I have estimated her half life to be 17-20 hours. * Start Vancomycin 1200 mg (17 mg/kg) IV every 24 hours. * Trough level ordered for 03/30/17 @ 0930. Pharmacy will continue to follow and will adjust dose/frequency as necessary. Thank you.
[2017-03-27] MEDS ORDERED: VANCOMYCIN INJ 1,200 MG in SODIUM CHLORIDE 0.9% 250ML 250 ML IV SCH (10:00)
--- NOTE | 2017-03-27 10:03 | Cardiology Consultation ---
Cardiology Consultation Date of Consultation: Mar 27, 2017. Requesting Physician: Dr. Morley Reason for Consultation: Ventricular tachycardia Pt evaluation today including: conversation w/ patient, conversation w/ family , physical exam, lab review, review of studies, review of inpatient medication list History of Present Illness This is a very pleasant 81-year-old woman who has metastatic renal cell carcinoma and chronic kidney disease. She presented with sepsis which has responded to therapy. She was on telemetry and was observed to have a run of nonsustained ventricular tachycardia. She was unaware of the arrhythmia, she did not feel lightheadedness, dizziness or palpitations. She has never had palpitations, she does occasionally have lightheadedness but it sounds as though it is orthostatic and her and her family agreed that it has been related to medications in the past. She has never had syncope. She has not had chest discomfort, she has been told she has a heart murmur but has no other known heart disease. Past Medical/Surgical History (1) Metastatic renal cell carcinoma to bone (2) Hypocalcemia (3) Secondary hyperparathyroidism (4) Metastatic renal cell carcinoma to lung (5) DVT (deep venous thrombosis) (6) Diabetes (7) Hypertension Family History Patient reports no known family medical history. Social History Smoking Status: Never Smoker History of Alcohol Use: No Review of Systems Constitutional: No fever, No weight loss, No weakness Respiratory: No cough, No sputum, No wheezing, No shortness of breath, No dyspnea on exertion Cardiac: No chest pain Abdomen: No pain, No nausea, No vomiting, No diarrhea, No GI bleeding Female : No problem reported Neurologic: No paralysis, No weakness, No numbness/tingling, No balance problems Heme: No abnormal bleeding/bruising, No clotting problems Endo: No fatigue Skin: No problem reported All Other Systems: Reviewed and Negative Allergies Coded Allergies: Adhesives (Verified Allergy, Mild, LOCAL SKIN IRRITATION, BLISTERS, ) Medications Current Inpatient Medications Medications (Trade) Dose Ordered Sig/Suleiman Route Start Time Stop Time Status Last Admin Dose Admin Acetaminophen (Tylenol Tab) 650 mg Q4H PRN PO 03/21/17 15:45 04/20/17 15:44 Al Hydrox/Mg Hydrox/Simethicone (Maalox Max Susp) 15 ml Q4H PRN PO 03/21/17 15:45 04/20/17 15:44 Magnesium Hydroxide (Milk Of Magnesia Susp) 30 ml Q12H PRN PO 03/21/17 15:45 04/20/17 15:44 Ondansetron HCl (Zofran Inj) 4 mg Q6H PRN IV 03/21/17 15:45 04/20/17 15:44 03/27/17 07:32 4 MG Polyethylene (Miralax Powder Packet) 17 gm DAILY PRN PO 03/21/17 15:45 04/20/17 15:44 Insulin Aspart (novoLOG ASPART) SLIDING SCALE If C... ACHS SC 03/21/17 16:00 04/20/17 15:59 03/27/17 08:33 4 UNITS Glucose (Glucose 40% Gel) 15-30 GRAMS 15 GRAMS... UD PRN PO 03/21/17 15:45 04/20/17 15:44 Glucose (Glucose Chew Tab) 4-8 Tablets 4 Tabl... UD PRN PO 03/21/17 15:45 04/20/17 15:44 Dextrose (Dextrose 50% 50ML Syringe) 25-50ML OF 50% DW IV FOR... UD PRN IV 03/21/17 15:45 04/20/17 15:44 Glucagon (Glucagon Inj) 1 mg UD PRN SQ 03/21/17 15:45 04/20/17 15:44 Acetaminophen/ Hydrocodone Bitart ([place] 7.5/325 Tab) 1 tab for mild-moderate pain (p... Q4 PRN PO 03/21/17 15:45 04/04/17 15:44 03/22/17 09:05 1 TAB Levothyroxine Sodium (Synthroid Tab) 200 mcg DAILYBB PO 03/22/17 06:30 04/21/17 06:29 03/27/17 06:22 200 MCG Ondansetron HCl (Zofran Tab) 8 mg Q8 PRN PO 03/21/17 15:45 04/20/17 15:44 Senna (Senokot Tab) 8.6 mg DAILY PRN PO 03/21/17 15:45 04/20/17 15:44 Lactobacillus Acidophilus (Floranex Tab) 1 tab DAILY PO 03/22/17 09:00 04/21/17 08:59 03/27/17 08:28 1 TAB Famotidine (Pepcid Tab) 20 mg QAM PO 03/22/17 09:00 04/21/17 08:59 03/27/17 08:27 20 MG Miscellaneous Information (Check Fentanyl Patch Placement) 1 ea QS N/A 03/22/17 17:00 04/21/17 16:59 03/27/17 08:29 1 EA Acetaminophen 650 mg/Empty Bag 65 ml @ 260 mls/hr Q6H PRN IV 03/21/17 20:45 04/20/17 20:44 Pantoprazole Sodium (Protonix Tab) 40 mg QAM PO 03/22/17 09:00 04/21/17 08:59 Future Hold 03/24/17 07:40 40 MG Vancomycin HCl (Consult) 1 ea UD PRN N/A 03/22/17 08:45 04/21/17 08:44 Future hold Miscellaneous Information (Consult Glycemic Management Pharmacy) 1 ea UD PRN N/A 03/22/17 12:14 04/21/17 12:13 Insulin Detemir (Levemir Flexpen/ FlexTouch) 6 unit QAM SC 03/23/17 09:00 04/22/17 08:59 03/27/17 08:33 6 UNIT Cephalexin Monohydrate (Keflex Cap) 250 mg BID PO 03/25/17 09:00 04/04/17 08:59 03/27/17 08:27 250 MG Ergocalciferol (Vitamin D Cap) 50,000 interunit Mo@0900 PO 04/01/17 09:00 06/17/17 09:01 Calcitriol (Rocaltrol Cap) 0.25 mcg QAM PO 03/25/17 09:00 04/24/17 08:59 03/27/17 08:28 0.25 MCG Fentanyl (Duragesic Patch) 50 mcg Q3D@0900 TD 03/26/17 09:00 04/09/17 08:59 03/26/17 08:35 50 MCG Miscellaneous (Fentanyl Patch Remove & Waste) 1 ea Q3D@0859 N/A 03/26/17 08:59 04/25/17 08:58 03/26/17 08:38 1 EA Vancomycin HCl (Vancomycin Oral Soln) 125 mg QID PO 03/26/17 13:00 04/09/17 12:59 03/27/17 08:28 125 MG Raspberry (Raspberry Syrup 5ml Cup) 5 ml QID PO 03/26/17 13:00 04/09/17 12:59 03/27/17 08:28 5 ML Enteral Nutritional Formula (Boost Glucose Control) 1 can QDD PO 03/26/17 17:00 04/25/17 16:59 03/26/17 17:06 1 CAN Metoprolol Tartrate (Lopressor Tab) 12.5 mg BID PO 03/27/17 09:00 04/26/17 08:59 03/27/17 08:28 12.5 MG Potassium/ Phosphorus/Sodium (Phospha 250 Neutral 155-852-130 Mg) 1 tab QID PO 03/27/17 09:00 04/26/17 08:59 03/27/17 08:27 1 TAB Magnesium Oxide (Mag-Ox Tab) 400 mg QAM PO 03/27/17 09:00 04/26/17 08:59 03/27/17 08:27 400 MG Vancomycin HCl 1200 mg/Sodium Chloride 274 ml @ 125 mls/hr Q24H IV 03/27/17 10:00 04/05/17 23:59 Insulin Detemir (Levemir Flexpen/ FlexTouch) 5 unit HS SC 03/27/17 21:00 04/26/17 20:59 Physical Exam Vital Signs Past 12 Hours Date Time Temp Pulse Resp B/P (MAP) Pulse Ox O2 Delivery O2 Flow Rate FiO2 03/27/17 08:00 Room Air 03/27/17 07:34 36.7 71 16 135/67 (89) 97 Room Air 03/27/17 04:00 97 Room Air 03/27/17 03:55 36.6 73 18 113/67 (82) 95 Room Air 03/27/17 00:00 97 Room Air 03/26/17 23:53 36.9 77 20 135/69 (91) 98 Room Air Constitutional: General Apperance: heathly-appearing Level of Distress: NAD Psychiatric: Mental Status: active & alert Head: normocephalic Eyes: EOM: EOMI ENMT: normal ENT inspection, hearing grossly normal Neck: supple, no masses Lungs: Respiratory effort: no dyspnea, good air movement Auscultation: breath sounds normal, no wheezing Cardiovascular: Heart Auscultation: RRR, no rubs, no gallops, II/ LOUANN, II/ WSM Peripheral Pulses: Bruits: none appreciated Abdomen: Bowel Sounds: normal Inspection & Palpation: soft, no tenderness, guarding & rebound, no masses Musculoskeletal: normal strength (5/5 throughout) Extremities: no edema Neurologic: Cranial Nerves: grossly intact Sensation: grossly intact Data Laboratory Results: Last 24 Hours Test 03/26/17 11:21 03/26/17 16:17 03/26/17 19:58 03/27/17 05:18 Bedside Glucose 178 mg/dl 233 mg/dl 263 mg/dl White Blood Count 10.64 K/uL Red Blood Count 3.11 M/uL Hemoglobin 8.8 g/dL Hematocrit 27.2 % Mean Corpuscular Volume 87.5 fL Mean Corpuscular Hemoglobin 28.3 pg Mean Corpuscular Hemoglobin Concent 32.4 g/dl RDW Standard Deviation 57.5 fL RDW Coefficient of Variation 18.0 % Platelet Count 264 K/uL Mean Platelet Volume 9.7 fL Sodium Level 140 mmol/L Potassium Level 4.1 mmol/L Chloride Level 113 mmol/L Carbon Dioxide Level 18 mmol/L Anion Gap 9.0 mmol/L Blood Urea Nitrogen 23 mg/dl Creatinine 1.20 mg/dl Est Creatinine Clear Calc Drug Dose 31.8 ml/min Estimated GFR () 49.1 Estimated GFR (Non- 42.4 BUN/Creatinine Ratio 19.3 Random Glucose 163 mg/dl Calcium Level 6.1 mg/dl Phosphorus Level 2.4 mg/dl Magnesium Level 1.6 mg/dl Total Bilirubin 0.3 mg/dl Aspartate Amino Transf (AST/SGOT) 10 U/L Alanine Aminotransferase (ALT/SGPT) < 6 U/L Alkaline Phosphatase 101 U/L Total Protein 5.2 gm/dl Albumin 1.6 gm/dl Globulin 3.6 gm/dl Albumin/Globulin Ratio 0.4 Random Vancomycin Level 20.7 mcg/ml Test 03/27/17 07:30 Bedside Glucose 173 mg/dl Imaging: The last echocardiogram was 2013, at that time her left ventricular function was normal, she had mild left ventricular hypertrophy, mild mitral regurgitation and no aortic valve problem. EKG: Sinus rhythm, normal electrocardiogram Telemetry reviewed: Several episodes of nonsustained ventricular tachycardia have been seen on telemetry, one was 5 beats in duration on 03/24/2017 and one was on 03/26/2017 and was 11 beats in duration. Both were at a heart rate of around 140-160 bpm (there was change in heart rate during the run). Both were asymptomatic. Assessment & Plan #1. Nonsustained ventricular tachycardia: In the setting of normal left ventricular function and asymptomatic nonsustained ventricular tachycardia I would probably not specifically treat, although beta blockers could be used. If she has left ventricular dysfunction that alters our approach. I'm therefore going to get an echocardiogram although her left degree of function in the past has been normal, but it has been 3 years since it was evaluated. I would continue to monitor while she is in the hospital. #2. Systolic murmurs: It sounds as though she has a mitral regurgitant murmur but there also is a sound in the aortic area probably aortic sclerosis (no radiation to the neck). We can evaluate her valvular abnormalities by echocardiography as well. Thank you for allowing me to participate in her care.
[2017-03-27] MEDS ORDERED: NURSING VERBAL MED ORDER ONE (10:45)
--- NOTE | 2017-03-27 11:30 | Nephrology Progress Note ---
Nephrology Progress Note Date of Service Mar 27, 2017. Chief Complaint Evaluation and management for acute kidney injury with history of chronic kidney disease and solitary right kidney Sabas Luevano Was seen and examined in her room with her daughters at bedside. She is overall feeling well, denies them nausea or abdominal pain. She just had breakfast, tolerated well. she was found to have non sustained ventricular tachycardia on monitor however she was asymptomatic. Currently in sinus rhythm , rate controlled. Blood pressure stable. Renal function continues to improve rapidly, creatinine 1.2 this morning which is at her baseline. Review of Systems A complete review of systems was performed. Pertinent positives are noted above. All other systems are negative. Vital Signs Last 8 Hrs Date Time Temp Pulse Resp B/P (MAP) Pulse Ox O2 Delivery O2 Flow Rate FiO2 03/27/17 08:00 Room Air 03/27/17 07:34 36.7 71 16 135/67 (89) 97 Room Air 03/27/17 04:00 97 Room Air 03/27/17 03:55 36.6 73 18 113/67 (82) 95 Room Air Last Recorded Weight Weight (Kilograms): 69.400 Physical Exam GENERAL: Elderly female, AAA x 3, pleasant, pale,not in any distress. NECK: Supple, no JVD. RESPIRATORY: Normal breathing efforts, no accessory muscle use, clear to auscultation bilaterally, no wheezes or rales. CARDIOVASCULAR: S1, S2 normal, rate rhythm regular. EXTREMITY: No lower extremity edema NEURO: speech fluent. PSYCHIATRY: Normal mood and judgment Family History Patient reports no known family medical history. Social History Smoking Status: Never smoker Smokeless Tobacco Use: No Alcohol Use: none Drug Use: none Marital Status: Occupation: retired Laboratory Results Past 24 Hours 03/27/17 05:18 03/27/17 05:18 Test 03/26/17 16:17 03/26/17 19:58 03/27/17 05:18 03/27/17 07:30 Bedside Glucose 233 mg/dl (70-90) 263 mg/dl (70-90) 173 mg/dl (70-90) Red Blood Count 3.11 M/uL (4.2-5.4) Mean Corpuscular Volume 87.5 fL (80-100) Mean Corpuscular Hemoglobin 28.3 pg (25-34) Mean Corpuscular Hemoglobin Concent 32.4 g/dl (32-36) RDW Standard Deviation 57.5 fL (36.4-46.3) RDW Coefficient of Variation 18.0 % (11.5-14.5) Mean Platelet Volume 9.7 fL (7.4-10.4) Anion Gap 9.0 mmol/L (3-11) Est Creatinine Clear Calc Drug Dose 31.8 ml/min Estimated GFR () 49.1 Estimated GFR (Non- 42.4 BUN/Creatinine Ratio 19.3 (10-20) Calcium Level 6.1 mg/dl (8.5-10.1) Phosphorus Level 2.4 mg/dl (2.5-4.9) Magnesium Level 1.6 mg/dl (1.8-2.4) Total Bilirubin 0.3 mg/dl (0.2-1) Aspartate Amino Transf (AST/SGOT) 10 U/L (15-37) Alanine Aminotransferase (ALT/SGPT) < 6 U/L (12-78) Alkaline Phosphatase 101 U/L (45-117) Total Protein 5.2 gm/dl (6.4-8.2) Albumin 1.6 gm/dl (3.4-5.0) Globulin 3.6 gm/dl (2.5-4.0) Albumin/Globulin Ratio 0.4 (0.9-2) Random Vancomycin Level 20.7 mcg/ml Allergies Coded Allergies: Adhesives (Verified Allergy, Mild, LOCAL SKIN IRRITATION, BLISTERS, ) Medications Current Inpatient Medications Medications (Trade) Dose Ordered Sig/Suleiman Route Start Time Stop Time Status Last Admin Dose Admin Acetaminophen (Tylenol Tab) 650 mg Q4H PRN PO 03/21/17 15:45 04/20/17 15:44 Al Hydrox/Mg Hydrox/Simethicone (Maalox Max Susp) 15 ml Q4H PRN PO 03/21/17 15:45 04/20/17 15:44 Magnesium Hydroxide (Milk Of Magnesia Susp) 30 ml Q12H PRN PO 03/21/17 15:45 04/20/17 15:44 Ondansetron HCl (Zofran Inj) 4 mg Q6H PRN IV 03/21/17 15:45 04/20/17 15:44 03/27/17 07:32 4 MG Polyethylene (Miralax Powder Packet) 17 gm DAILY PRN PO 03/21/17 15:45 04/20/17 15:44 Insulin Aspart (novoLOG ASPART) SLIDING SCALE If C... ACHS SC 03/21/17 16:00 04/20/17 15:59 03/27/17 08:33 4 UNITS Glucose (Glucose 40% Gel) 15-30 GRAMS 15 GRAMS... UD PRN PO 03/21/17 15:45 04/20/17 15:44 Glucose (Glucose Chew Tab) 4-8 Tablets 4 Tabl... UD PRN PO 03/21/17 15:45 04/20/17 15:44 Dextrose (Dextrose 50% 50ML Syringe) 25-50ML OF 50% DW IV FOR... UD PRN IV 03/21/17 15:45 04/20/17 15:44 Glucagon (Glucagon Inj) 1 mg UD PRN SQ 03/21/17 15:45 04/20/17 15:44 Acetaminophen/ Hydrocodone Bitart ([place] 7.5/325 Tab) 1 tab for mild-moderate pain (p... Q4 PRN PO 03/21/17 15:45 04/04/17 15:44 03/22/17 09:05 1 TAB Levothyroxine Sodium (Synthroid Tab) 200 mcg DAILYBB PO 03/22/17 06:30 04/21/17 06:29 03/27/17 06:22 200 MCG Ondansetron HCl (Zofran Tab) 8 mg Q8 PRN PO 03/21/17 15:45 04/20/17 15:44 Senna (Senokot Tab) 8.6 mg DAILY PRN PO 03/21/17 15:45 04/20/17 15:44 Lactobacillus Acidophilus (Floranex Tab) 1 tab DAILY PO 03/22/17 09:00 04/21/17 08:59 03/27/17 08:28 1 TAB Famotidine (Pepcid Tab) 20 mg QAM PO 03/22/17 09:00 04/21/17 08:59 03/27/17 08:27 20 MG Miscellaneous Information (Check Fentanyl Patch Placement) 1 ea QS N/A 03/22/17 17:00 04/21/17 16:59 03/27/17 08:29 1 EA Acetaminophen 650 mg/Empty Bag 65 ml @ 260 mls/hr Q6H PRN IV 03/21/17 20:45 04/20/17 20:44 Pantoprazole Sodium (Protonix Tab) 40 mg QAM PO 03/22/17 09:00 04/21/17 08:59 Future Hold 03/24/17 07:40 40 MG Miscellaneous Information (Consult Glycemic Management Pharmacy) 1 ea UD PRN N/A 03/22/17 12:14 04/21/17 12:13 Insulin Detemir (Levemir Flexpen/ FlexTouch) 6 unit QAM SC 03/23/17 09:00 04/22/17 08:59 03/27/17 08:33 6 UNIT Cephalexin Monohydrate (Keflex Cap) 250 mg BID PO 03/25/17 09:00 04/04/17 08:59 03/27/17 08:27 250 MG Ergocalciferol (Vitamin D Cap) 50,000 interunit Mo@0900 PO 04/01/17 09:00 06/17/17 09:01 Calcitriol (Rocaltrol Cap) 0.25 mcg QAM PO 03/25/17 09:00 04/24/17 08:59 03/27/17 08:28 0.25 MCG Fentanyl (Duragesic Patch) 50 mcg Q3D@0900 TD 03/26/17 09:00 04/09/17 08:59 03/26/17 08:35 50 MCG Miscellaneous (Fentanyl Patch Remove & Waste) 1 ea Q3D@0859 N/A 03/26/17 08:59 04/25/17 08:58 03/26/17 08:38 1 EA Vancomycin HCl (Vancomycin Oral Soln) 125 mg QID PO 03/26/17 13:00 04/09/17 12:59 03/27/17 08:28 125 MG Raspberry (Raspberry Syrup 5ml Cup) 5 ml QID PO 03/26/17 13:00 04/09/17 12:59 03/27/17 08:28 5 ML Enteral Nutritional Formula (Boost Glucose Control) 1 can QDD PO 03/26/17 17:00 04/25/17 16:59 03/26/17 17:06 1 CAN Metoprolol Tartrate (Lopressor Tab) 12.5 mg BID PO 03/27/17 09:00 04/26/17 08:59 03/27/17 08:28 12.5 MG Potassium/ Phosphorus/Sodium (Phospha 250 Neutral 155-852-130 Mg) 1 tab QID PO 03/27/17 09:00 04/26/17 08:59 03/27/17 08:27 1 TAB Magnesium Oxide (Mag-Ox Tab) 400 mg QAM PO 03/27/17 09:00 04/26/17 08:59 03/27/17 08:27 400 MG Insulin Detemir (Levemir Flexpen/ FlexTouch) 5 unit HS SC 03/27/17 21:00 04/26/17 20:59 Amoxicillin/ Clavulanate Potassium (Augmentin Tab) 875 mg BIDM PO 03/27/17 17:00 04/10/17 16:59 Impression (1) Acute renal failure (2) UTI (urinary tract infection) (3) Sepsis (4) Diabetes (5) Hypertension (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 She was found to have the blood culture positive for Streptococcus and E coli, currently on cefepime and vancomycin. Add baseline her creatinine is 1.5-1.7, on admission she was found to have acute kidney injury and hypocalcemia, creatinine was 4 and calcium was them 7.8. She was significantly hypotensive on admission with some poor p.o. intake the for 2 days before admission as well as concomitant use of Lasix and losartan. Acute kidney injury most likely hemodynamically mediated, started to improve with volume depletion, creatinine was 2.6 this morning, other electrolyte improving. Her blood pressure improved and has been stable. Overall she continues to feel tired. Has chronic anemia probably secondary to chronic disease with underlying metastatic malignancy. Recommendations -- continue on ergocalciferol and calcitriol 0.25 microgram daily -- acute kidney injury resolved, creatinine currently at baseline, 1.2 this morning. Continue to monitor renal function with daily renal panel while inpatient however, okay to be discharged. Will sign off, please call with any question or concerns.
--- NOTE | 2017-03-27 13:22 | ECHOCARDIOGRAM REPORT ---
*NOTICE TO RECEIVING DEMOCRAT AGENCY This information is strictly Confidential and protected under [place] law. [place] law prohibits you from making any further disclosure of this information unless further disclosure is expressly permitted by the written consent of the person to whom it pertains or is authorized by law. A general authorization for the release of medical or other information is not sufficient for this purpose. Hospital accepts no responsibility if the information is made available to any other person, INCLUDING THE PATIENT. Interpretation Summary * Echocardiogram Report * Name: PATRICIA PLASCENCIA Study Date: 03/27/2017 11:18 AM BP: 135/67 mmHg * Patient Location: [facility]\S\N287\S\2 HR: 76 * : 1935 (M/d/yyyy) Gender: Female Height: 60 in * Age: 81 yrs Ethnicity: CA Weight: 153 lb * Ordering Physician: Theo Rose * Referring Physician: Self, Referred * Performed By: Adonis Zamudio RCS * * Reason For Study: Murmur * BSA: 1.7 m2 * -- Conclusions -- * Left ventricular systolic function is normal. * No regional wall motion abnormalities noted. * Ejection Fraction = 55-60%. * There is borderline concentric left ventricular hypertrophy. * Aortic valve sclerosis moderate, without significant aortic valvular stenosis. * There is mild mitral regurgitation. * There is mild tricuspid regurgitation. Procedure Details * Left Ventricle The left ventricle is normal in size. There is borderline concentric left ventricular hypertrophy. Ejection Fraction = 55-60%. Left ventricular systolic function is normal. No regional wall motion abnormalities noted. * Right Ventricle The right ventricle is normal size. The right ventricular systolic function is normal as assessed by tricuspid annular plane systolic excursion (TAPSE) (normal >1.5 cm). * Atria The left atrium is mildly dilated. The right atrium is mildly dilated. There is no evidence of atrial septal defect, but resolution does not allow assessment for a patent foramen ovale. * Mitral Valve The mitral valve is normal in structure and function. There is no mitral valve stenosis. There is mild mitral regurgitation. * Tricuspid Valve The tricuspid valve is normal in structure and function. There is no tricuspid stenosis. There is mild tricuspid regurgitation. * Aortic Valve The aortic valve is trileaflet. The aortic valve opens well. Aortic valve sclerosis moderate, without significant aortic valvular stenosis. Trace aortic regurgitation. * Pulmonic Valve The pulmonary valve is not well seen, but the Doppler examination is normal without significant regurgitation or stenosis. * Great Vessels The aortic root is normal size. The pulmonary is not well visualized. * Pericardium/Pleural There is no pericardial effusion. * Great Vessels IVC not well seen. * Left Ventricular Diastolic Function Grade I diastolic dysfunction, (abnormal relaxation pattern). * * MMode 2D Measurements and Calculations * IVSd 0.95 cm * * LVIDd 4.6 cm * LVIDs 3.1 cm * LVPWd 0.80 cm * * IVS/LVPW 1.2 * FS 33.4 % * EDV(Teich) 98.4 ml * ESV(Teich) 37.2 ml * EF(Teich) 62.2 % * * EDV(cubed) 98.7 ml * ESV(cubed) 29.1 ml * EF(cubed) 70.5 % * * LV mass(C)d 133.8 grams * LV mass(C)dI 80.3 grams/m\S\2 * * SV(Teich) 61.2 ml * SI(Teich) 36.7 ml/m\S\2 * SV(cubed) 69.6 ml * SI(cubed) 41.8 ml/m\S\2 * * Ao root diam 3.1 cm * Ao root area 7.4 cm\S\2 * * LVAd ap4 29.1 cm\S\2 * LVLd ap4 8.7 cm * EDV(MOD-sp4) 78.7 ml * EDV(sp4-el) 82.9 ml * LVAs ap4 16.5 cm\S\2 * LVLs ap4 7.3 cm * ESV(MOD-sp4) 31.1 ml * ESV(sp4-el) 31.5 ml * EF(MOD-sp4) 60.5 % * EF(sp4-el) 62.1 % * * LVAd ap2 29.9 cm\S\2 * LVLd ap2 8.4 cm * EDV(MOD-sp2) 87.1 ml * EDV(sp2-el) 90.9 ml * LVAs ap2 18.4 cm\S\2 * LVLs ap2 7.1 cm * ESV(MOD-sp2) 40.3 ml * ESV(sp2-el) 40.7 ml * EF(MOD-sp2) 53.7 % * EF(sp2-el) 55.2 % * * LVLd %diff -4.03 % * EDV(MOD-bp) 84.7 ml * LVLs %diff -3.08 % * ESV(MOD-bp) 35.8 ml * EF(MOD-bp) 57.7 % * * SV(MOD-sp4) 47.7 ml * SI(MOD-sp4) 28.6 ml/m\S\2 * * SV(MOD-sp2) 46.8 ml * SI(MOD-sp2) 28.1 ml/m\S\2 * * SV(MOD-bp) 48.9 ml * SI(MOD-bp) 29.3 ml/m\S\2 * * SV(sp4-el) 51.5 ml * SI(sp4-el) 30.9 ml/m\S\2 * * SV(sp2-el) 50.2 ml * SI(sp2-el) 30.1 ml/m\S\2 * * * * Doppler Measurements and Calculations * MV E max charlie 92.3 cm/sec * MV A max charlie 107.1 cm/sec * * MV E/A 0.86 * * MV dec time 0.18 sec * * Ao V2 max 205.8 cm/sec * Ao max PG 16.9 mmHg * Ao max PG (full) 10.2 mmHg * * LV V1 max PG 6.8 mmHg * LV V1 mean PG 3.3 mmHg * * LV V1 max 130.0 cm/sec * LV V1 mean 84.4 cm/sec * LV V1 VTI 30.6 cm * * TR max charlie 288.1 cm/sec * * *
[2017-03-27] MEDS ORDERED: NYSTATIN SUSP 500,000 U/5 ML UDC PO ONE (15:43)
[2017-03-27] MEDS ORDERED: VNCS125 PO (15:57)
[2017-03-27] MEDS ORDERED: AMOX1TAB43 PO (15:57)
[2017-03-27] MEDS ORDERED: KFL250 PO (15:57)
--- NOTE | 2017-03-27 16:06 | Discharge Instructions ---
Discharge Instructions Date of Service Mar 27, 2017. Admission Reason for Admission: Sepsis Discharge Discharge Diagnosis / Problem: sepsis Discharge Goals Goal(s): Improve function, Increase independence, Therapeutic intervention Activity Recommendations Activity Limitations: resume your previous activity . Instructions / Follow-Up Instructions / Follow-Up You were admitted to the hospital because you were found to have an infection in your bug by two bugs, E. Faecalis and E. Coli. The suspicion is that this infection may be from the urinary system however it is suspicious that there was a GI source. There was no active infection in the GI tract noted. We treated you with IV Vanco and cefepime IV and transitioned to Augmentin and Keflex. Unfortunately you were having loose bowel movements so we checked for C Diff and this was positive. We started you on a therapeutic dose of oral Vanco. This will be an extended course. You were also found to have a very high creatine which was reflective of acute kidney injury. We held your lasix and lisinopril and gave you lots of fluids. Fortunately your kidneys are doing very well. We recommend trying to keep the lasix as prn for swelling instead of daily. We also recommend restarting lisinopril however with systolic > 140. Continue this until you follow up with your PCP where further recommendations can be made. No further changes to medications have been made. 1. Vancomycin oral 125 mg four times a day x 14 days 125 mg three times a day x 14 days 125 mg two times a day x 14 days 125 mg daily x 14 days 2. Continue Augmentin and Keflex x 10 days If you are unable to tolerate the Augmentin the recommendation is to change to Amoxicillin at 875 mg bid 3. Lisinopril can be restarted when systolic is > 140 and otherwise hold until discussing with your PCP 4. Lasix- remember to keep this prn meaning as needed for swelling as the daily use may have exacerbated the dehydration 5. Follow up with PCP in the next week 6. Continue the Vit D ( every saturday) x 7 weeks and daily calcium for vit D deficiency - when you follow up with PCP discuss transitioning to a daily Vit D Current Hospital Diet Patient's current hospital diet: Diabetes Type 2 Diet Discharge Diet Recommended Diet: Diabetes Type 2 Diet Pending Studies Studies pending at discharge: no Laboratory Results Hemoglobin A1c Test 02/07/17 22:04 Range/Units Estimated Average Glucose 186 mg/dl Hemoglobin A1c 8.1 H 4.5-5.6 % Medical Emergencies . Who to Call and When: Medical Emergencies: If at any time you feel your situation is an emergency, please call 911 immediately. . Non-Emergent Contact Non-Emergency issues call your: Primary Care Provider . . "Provider Documentation" section prepared by Yanet Morley. . VTE Core Measure Inpt VTE Proph given/why not?: Unfractionated heparin LEN, T.E.Aiyana. Bobby, SCD 's
[2017-03-27] MEDS ORDERED: NYSS5 PO (16:23)
[2017-03-27] MEDS ORDERED: RCL25 PO (16:28)
[2017-03-27] MEDS ORDERED: ERGO1CAP41 PO (16:28)
[2017-03-27] MEDS ORDERED: AMOXICILLIN/CLAVULANATE TAB 875 MG TAB PO SCH (17:00)
--- NOTE | 2017-03-27 18:13 | Discharge Summary ---
Discharge Summary Date of Service Mar 27, 2017. (Yanet Morley MD) Discharge Summary Admission Date: Mar 21, 2017 at 15:43 Discharge Date: Mar 27, 2017 Discharge Disposition: Home Principal Diagnosis: sepsis Immunizations: Have You Had Influenza Vaccine: Yes History of Tetanus Vaccine?: Unknown History of Pneumococcal: Yes History of Hepatitis B Vaccine: No (Yanet Morley MD) Medication Reconciliation New Medications: Amoxicillin & Pot Clavulanate (Amoxicillin/Clavulanate P) 1 Tab Tab 875 MG PO BIDM for 10 Days, #20 TAB Calcitriol (Calcitriol) 0.25 Mcg Cap 0.25 MCG PO QAM for 30 Days, #30 CAP Cephalexin Monohydrate (Cephalexin) 250 Mg Cap 250 MG PO BID for 10 Days, #40 CAP Ergocalciferol (Vitamin D 06812 Unit) 50,000 Unit Cap 41932 INTERUNIT PO Mo@0900 for 7 Days, #7 CAP Nystatin (Nystatin) 5 Ml Susp 5 ML PO QID for 7 Days, #35 ML Vancomycin HCl (Vancomycin HCl) 125 Mg/2.5 Ml Susp 125 MG PO QID for 56 Days, #360 ML Continued Medications: Acetaminophen Tab (Tylenol) 325 Mg Tab 650 MG PO Q4 PRN for Pain ALTERNATES DOSES WITH NORCO Denosumab (Xgeva) 120 Mg/1.7 Ml Inj 1 DOSE SC MONTHLY Fentanyl (Fentanyl) 50 Mcg Tdsy 50 MCG TD Q3D@1999, #10 PATCH Furosemide (Lasix) 20 Mg Tab 20 MG PO DAILY PRN for EDEMA, #10 TAB Hydrocodone/Acetaminophen 7.5MG/325MG ([place] 7.5MG/325MG) Tab 1-2 TAB PO Q4 PRN for Pain, TAB PRN PAIN Insulin Detemir (Levemir Flextouch) 100 Unit/Ml Inj 6 UNITS SQ QAM Insulin Detemir (Levemir Flextouch) 100 Unit/Ml Inj 3 UNITS SQ QPM Lactobacillus-Inulin (Culturelle) 1 Cap Cap 1 CAP PO DAILY Levothyroxine Sodium (Levothyroxine Sodium) 200 Mcg Tab 200 MCG PO DAILY Lisinopril (Lisinopril) 10 Mg Tab 10 MG PO DAILY Nivolumab (Opdivo) Unknown Strength Inj 1 DOSE IV [id number] Ondansetron Hcl (Zofran) 8 Mg Tab 8 MG PO Q8 PRN for Nausea Polyethylene (Miralax) 17 Gm Pow 17 GM PO DAILY PRN for Constipation for 30 Days, #15 PKT 2 Refills Senna (Senokot) 8.6 Mg Tab 1 TAB PO DAILY PRN for Constipation, 0 Refills [Opdiva] () 1 DOSE IV. [id number] Discontinued Medications: Pantoprazole (Protonix) 40 Mg Tab 40 MG PO DAILY, #30 TAB Discharge Exam Patient is feeling much better, instructions given to daughters and patient and agreeable to d/c and reflected understanding of instructions Review of Systems: Constitutional: No fever Eyes: No worsening of vision ENT: No hearing loss Respiratory: No cough, No sputum, No wheezing, No shortness of breath, No dyspnea on exertion, No dyspnea at rest Cardiovascular: No chest pain Abdomen: No pain, No nausea, No vomiting, No diarrhea, No constipation Musculoskeletal: No joint pain, No muscle pain Genitourinary - Female: No dysuria, No hematuria Neurologic: + weakness, + balance problems, No numbness/tingling Psychiatric: No depression symptoms Endocrine: + fatigue Integumentary: No rash Physical Exam: General Appearance: no apparent distress Eyes: normal inspection ENT: normal ENT inspection Neck: supple Respiratory/Chest: normal breath sounds, no respiratory distress, no accessory muscle use Cardiovascular: regular rate, rhythm, no murmur Abdomen / GI: normal bowel sounds, non tender, soft Extremities: no calf tenderness, + pedal edema (trace bilat pedal edema) Neurologic/Psychiatric: alert, normal mood/affect, oriented x 3 Skin: normal color, warm/dry, no rash Lymphatic: no adenopathy (Yanet Morley MD) continuing to do well. appetite is good. did well with PT Review of Systems: Constitutional: No fever Respiratory: No shortness of breath Cardiovascular: No chest pain Abdomen: No pain Physical Exam: General Appearance: no apparent distress Respiratory/Chest: lungs clear, no respiratory distress Cardiovascular: regular rate, rhythm Abdomen / GI: normal bowel sounds, non tender, soft Neurologic/Psychiatric: alert, oriented x 3 Skin: warm/dry (Hiwot Zamudio M.D.) Hospital Course This is an 81 yo f with a history of 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 The UA did not culture E Coli however the patient did have a positive blood culture for E Coli and E faecalis. She was treated with vanco and Cefepime and transitioned to Vanco and keflex based on sensitivities. As she was having increased number of stools so a C diff was ordered and was positive. She was placed on qid dosing of vanco with the plan to have an extended taper. Sepsis secondary to E coli/ E Faecealis infection, source potentially vs GI? - UA is reflective of the source however UCx did not grow similar bacteria - Renal USG did not reveal an abscess - Transitioned to Augmentin and Keflex - complete a 10 day course - USG gall - no overt cholecystitis, history of cholelithiasis - GI consulted and no need for further imaging - repeat blood cultures repeat negative to date PIERCE on CKD secondary to UTI and dehydration- resolved - Patient had been receiving gentle rehydration - Significant improvement in Cr- back to BL - Bl is approx 1.5-1.7--> recommend follow up BMP in 1 week C Diff - Taper History of RCC - [place] Lomeli [place] [facility] [place]ophosphatemia/ hypocalcemia/ Elevated PTH - Recommend recheck of BMP and phosphorous in one week - Vit D Deficient - Ergocalciferol supplementation - will continue weekly x 7 weeks, based on PCP recommendation how to continue Vit D Supplementation - Continue the calcium supplement as well as prescribed Hypomagnesemia - Recommend recheck in 1 week DVT - patient has a history of bleeding with coumadin, heparin refused - SCD Total Time Spent: Greater than 30 minutes This includes examination of the patient, discharge planning, medication reconciliation, and communication with other providers. (Yanet Morley MD) Resident Physician Supervision Note: I was present with Dr. Bryan in bedside. I verified the pizano history and physical , reviewed labs and image studies, discussed the case with the resident and agree with the findings and care plan.. Total Time Spent: Greater than 30 minutes (40) (Hiwot Zamudio M.D.) Discharge Instructions Please refer to the electronic Patient Visit Report (Discharge Instructions) for additional information. (Yanet Morley MD) Additional Copies To Kamini Dunn M.D.
[2017-03-27 18:19] VITALS: BP 135/67; PULSE 71; TEMP 36.7; O2SAT 97
[2017-03-27] MEDS ORDERED: INSULIN DETEMIR FLEXPEN/FLEX TOUCH 100 UNITS/ML 3ML SC SCH (21:00)
[2017-03-27] MEDS ORDERED: NYSTATIN SUSP 500,000 U/5 ML UDC PO SCH (21:00)
[2017-03-30] MEDS ORDERED: VANCOMYCIN TROUGH SCH (09:30)
[2017-04-01] MEDS ORDERED: ERGOCALCIFEROL 50,000 INTER.UNIT CAP PO SCH (09:00)
== END 2017-03-27 19:15 | disposition home health service (06) | DRG 871 ==
LOC: C.EDB 12:45 → C.MED 15:43 → ENRESERV 16:03 → C.MED 21:06
PROVIDERS: ADMIT Internal Medicine; ATTEND Family Medicine
DX: A41.51 Sepsis due to Escherichia coli [E. coli] (principal); R65.21 Severe sepsis with septic shock; C79.51 Secondary malignant neoplasm of bone; N17.9 Acute kidney failure, unspecified; N39.0 Urinary tract infection, site not specified; C78.00 Secondary malignant neoplasm of unspecified lung; E27.40 Unspecified adrenocortical insufficiency; A04.7 Enterocolitis due to Clostridium difficile; E87.1 Hypo-osmolality and hyponatremia; I95.9 Hypotension, unspecified; E20.8 Other hypoparathyroidism; E86.0 Dehydration; E11.9 Type 2 diabetes mellitus without complications; Z86.718 Personal history of other venous thrombosis and embolism; Z85.528 Personal history of other malignant neoplasm of kidney; K21.9 Gastro-esophageal reflux disease without esophagitis; E03.9 Hypothyroidism, unspecified; E83.42 Hypomagnesemia; I47.9 Paroxysmal tachycardia, unspecified; I12.9 Hypertensive chronic kidney disease with stage 1 through stage 4 chronic kidney disease, or unspecified chronic kidney disease; N18.3 Chronic kidney disease, stage 3 (moderate); Z92.3 Personal history of irradiation; E83.39 Other disorders of phosphorus metabolism

== ENCOUNTER 2017-05-20 20:19 | Inpatient (IN) | payer OTHER, MEDICARE ==
[~2017-05-20] VITALS: Ht 152.4 cm; Wt 61.5 kg
[~2017-05-20 20:19] MED LIST changes: +ACET325T96 PO; +AMOX1TAB43 PO; -CLTP PO; -CYAN500T13 PO; +ERGO1CAP41 PO; +KFL250 PO; +LACT10CA3 PO; -LEVO100T PO; +LEVO200T6 PO; +LISI-461 PO; +NIVO4INJ IV; +NYSS5 PO; +ONDA8TAB6 PO; -ONDA8TAB7 PO; -PANT40TA PO; +RCL25 PO
[2017-05-20] MEDS ORDERED: SODIUM CHLORIDE 0.9% 1000ML 1,000 ML IV ONE (21:17)
--- NOTE | 2017-05-20 21:17 | EMERGENCY ROOM VISIT NOTE ---
History Report prepared by Ruiz: Suellen Velez Under the Supervision of: Dr. Farooq Brower M.D. First contact with patient: 20:56 Chief Complaint: ILLNESS Stated Complaint: LOW BP, FEVER, DEHYDRATED History of Present Illness The patient is a 81 year old female who presents to the Emergency Room with complaints of a constant fever beginning this morning. The patient's daughter states that this morning the patient developed a fever of 102.7 and after taking Tylenol she developed nausea and vomiting. She reports that she has had chills and her symptoms today feel similar to previous episodes of UTIs. She notes that 3 months ago the patient was seen inpatient for a UTI with fever and chills and again 1 month ago. The daughter notes that the patient has a history of c-diff, renal failure, and cancer. She complains of dark urine and decreased urine output. She notes that the patient takes Lisinopril but didn't this morning due to nausea. The daughter states that the patient's fever has fluctuated with Tylenol throughout the day. She notes that the patient saw Dr. Mars 3 days ago and had labs done. Source of History: patient Onset: this morning Position: other (global) Symptom Intensity: 102 Quality: other (fever) Timing: constant Associated Symptoms: + nausea, + vomiting, + urinary symptoms Review of Systems See HPI for pertinent positives & negatives. A total of 10 systems reviewed and were otherwise negative. Past Medical & Surgical Medical Problems: (1) Diabetes (2) DVT (deep venous thrombosis) (3) Hypertension (4) Hypocalcemia (5) Metastatic renal cell carcinoma to bone (6) Metastatic renal cell carcinoma to lung (7) Secondary hyperparathyroidism Family History Patient reports no known family medical history. Social History Smoking Status: Never Smoker Alcohol Use: none Drug Use: none Marital Status: Housing Status: lives with family Occupation Status: retired Current/Historical Medications Scheduled Denosumab (Xgeva), 1 DOSE SQ MONTHLY Fentanyl (Duragesic), 50 MCG TD [id number] Insulin Detemir (Levemir Flextouch), 10 UNITS SQ AMPM Lactobacillus-Inulin (Culturelle), 1 CAP PO DAILY Levothyroxine Sodium (Levothyroxine Sodium), 200 MCG PO DAILY Lisinopril (Lisinopril), 10 MG PO DAILY Nivolumab (Opdivo), 1 DOSE IV [id number] Pantoprazole (Protonix), 40 MG PO QAM Vancomycin Hcl (Vancocin Hcl), 125 MG PO DAILY Scheduled PRN Acetaminophen Tab (Tylenol), 650 MG PO Q4 PRN for Pain Furosemide (Lasix), 20 MG PO DAILY PRN for EDEMA Hydrocodone/Acetaminophen 7.5MG/325MG ([place] 7.5MG/325MG), 1-2 TAB PO Q4 PRN for Pain Ondansetron Hcl (Zofran), 8 MG PO Q8 PRN for Nausea Polyethylene Glycol 3350 (Miralax), 17 GM PO DAILY PRN for Constipation Senna (Senokot), 1 TAB PO DAILY PRN for Constipation Allergies Coded Allergies: Adhesives (Verified Allergy, Mild, LOCAL SKIN IRRITATION, BLISTERS, ) Uncoded Allergies: ANTICOAGULANTS (Adverse Reaction, Intermediate, INCREASED INR -PER FAMILY, 05/20/17) Physical Exam Vital Signs Date Time Temp Pulse Resp B/P (MAP) Pulse Ox O2 Delivery O2 Flow Rate FiO2 05/21/17 00:30 81 16 120/55 96 Room Air 05/20/17 23:04 78 20 118/52 99 Room Air 05/20/17 23:04 98 Room Air 05/20/17 21:53 74 20 119/53 96 Room Air 05/20/17 21:32 79 05/20/17 20:36 36.7 78 20 126/61 95 Room Air Physical Exam GENERAL: Patient is a healthy-appearing well-nourished female HEAD: Normocephalic atraumatic EYES: Ocular movements intact pupils equal and react to light OROPHARYNX mucous membranes are moist no exudates present no erythema or edema present NECK: Supple no nuchal rigidity CHEST: Good equal expansion LUNGS: Clear and equal to auscultation CARDIAC: Normal S1 and S2, grade 2/6 systolic murmur ABDOMEN: Soft nontender no guarding BACK: No CVA tenderness EXTREMITIES: No pain upon palpation normal muscle strength in all groups no clubbing cyanosis or edema NEURO: Patient is following commands and answering questions appropriately. Alert and oriented x3 Cranial Nerves 2-12 grossly intact Medical Decision & Procedures ER Provider Diagnostic Interpretation: X-ray results as stated below per interpretation by me and the radiologist: CHEST ONE VIEW PORTABLE FINDINGS: No pneumothorax. The heart remains mildly enlarged. Left basilar densities. Focal thickening within the left lung apex is again noted. There is associated destruction of the left first rib. The right lung remains clear. A common bile duct stent is noted. There is an IVC filter. There are surgical clips within abdomen. Pathologic fracture at the proximal left humerus remains displaced. IMPRESSION: 1. Patchy left basilar airspace opacities. This could represent atelectasis or pneumonia. 2. No change in the destructive left apical lesion and pathologic fracture at the left humeral neck. Electronically signed by: Donovan Pan M.D. 05/20/2017 10:14 PM Dictated Date/Time: 05/20/2017 10:10 PM Laboratory Results 05/20/17 21:30 Red Blood Count 3.44, Mean Corpuscular Volume 92.2, Mean Corpuscular Hemoglobin 29.4, Mean Corpuscular Hemoglobin Concent 31.9, Mean Platelet Volume 10.1, Neutrophils (%) (Auto) 83.4, Lymphocytes (%) (Auto) 7.3, Monocytes (%) (Auto) 8.1, Eosinophils (%) (Auto) 0.8, Basophils (%) (Auto) 0.2, Neutrophils # (Auto) 10.82, Lymphocytes # (Auto) 0.95, Monocytes # (Auto) 1.05, Eosinophils # (Auto) 0.11, Basophils # (Auto) 0.03 05/20/17 21:30 Test 05/20/17 21:30 05/20/17 21:38 White Blood Count 12.99 K/uL (4.8-10.8) Red Blood Count 3.44 M/uL (4.2-5.4) Hemoglobin 10.1 g/dL (12.0-16.0) Hematocrit 31.7 % (37-47) Mean Corpuscular Volume 92.2 fL (80-100) Mean Corpuscular Hemoglobin 29.4 pg (25-34) Mean Corpuscular Hemoglobin Concent 31.9 g/dl (32-36) Platelet Count 297 K/uL (130-400) Mean Platelet Volume 10.1 fL (7.4-10.4) Neutrophils (%) (Auto) 83.4 % Lymphocytes (%) (Auto) 7.3 % Monocytes (%) (Auto) 8.1 % Eosinophils (%) (Auto) 0.8 % Basophils (%) (Auto) 0.2 % Neutrophils # (Auto) 10.82 K/uL (1.4-6.5) Lymphocytes # (Auto) 0.95 K/uL (1.2-3.4) Monocytes # (Auto) 1.05 K/uL (0.11-0.59) Eosinophils # (Auto) 0.11 K/uL (0-0.5) Basophils # (Auto) 0.03 K/uL (0-0.2) RDW Standard Deviation 53.9 fL (36.4-46.3) RDW Coefficient of Variation 15.9 % (11.5-14.5) Immature Granulocyte % (Auto) 0.2 % Immature Granulocyte # (Auto) 0.03 K/uL (0.00-0.02) Prothrombin Time 11.0 SECONDS (9.0-12.0) Prothromb Time International Ratio 1.0 (0.9-1.1) Activated Partial Thromboplast Time 28.9 SECONDS (21.0-31.0) Partial Thromboplastin Ratio 1.1 Urine Color DK YELLOW Urine Appearance CLOUDY (CLEAR) Urine pH 5.0 (4.5-7.5) Urine Specific [place] 1.031 (1.000-1.030) Urine Protein 1+ (NEG) Urine Glucose (UA) NEG (NEG) Urine Ketones TRACE (NEG) Urine Occult Blood 1+ (NEG) Urine Nitrite NEG (NEG) Urine Bilirubin 1+ (NEG) Urine Urobilinogen NEG (NEG) Urine Leukocyte Esterase SMALL (NEG) Urine WBC (Auto) 10-30 /hpf (0-5) Urine RBC (Auto) 0-4 /hpf (0-4) Urine Hyaline Casts (Auto) 5-10 /lpf (0-5) Urine Epithelial Cells (Auto) >30 /lpf (0-5) Urine Bacteria (Auto) NEG (NEG) Urine Yeast (Auto) PRESENT (NONE PRSENT) Anion Gap 7.0 mmol/L (3-11) Est Creatinine Clear Calc Drug Dose 21.5 ml/min Estimated GFR () 32.2 Estimated GFR (Non- 27.8 BUN/Creatinine Ratio 15.1 (10-20) Calcium Level 8.2 mg/dl (8.5-10.1) Total Bilirubin 0.8 mg/dl (0.2-1) Aspartate Amino Transf (AST/SGOT) 122 U/L (15-37) Alanine Aminotransferase (ALT/SGPT) 74 U/L (12-78) Alkaline Phosphatase 593 U/L (45-117) Total Creatine Kinase 26 U/L (26-192) Creatine Kinase MB < 0.5 ng/ml (0.5-3.6) Creatine Kinase MB Ratio (0-3.0) Troponin I < 0.015 ng/ml (0-0.045) Total Protein 7.2 gm/dl (6.4-8.2) Albumin 2.7 gm/dl (3.4-5.0) Globulin 4.5 gm/dl (2.5-4.0) Albumin/Globulin Ratio 0.6 (0.9-2) Bedside Lactic Acid Venous 0.78 mmol/L (0.90-1.70) Labs reviewed by ED physician. Medications Administered Medications (Trade) Dose Ordered Sig/Suleiman Route Start Time Stop Time Status Last Admin Dose Admin Sodium Chloride 1,000 ml @ 999 mls/hr Q1H1M ONCE IV 05/20/17 21:17 05/20/17 22:17 DC 05/20/17 22:00 999 MLS/HR Ceftriaxone Sodium (Rocephin Inj) 1 gm NOW STAT IV 05/20/17 22:56 05/20/17 22:58 DC 05/20/17 23:02 1 GM ECG Indication: nausea Rate (beats per minute): 78 Rhythm: normal sinus Findings: no acute ischemic change, no ectopy ED Course 2055: Past medical records reviewed. The patient was evaluated in room B3. A complete history and physical examination was performed. 2116: Sodium Chloride 1000 ml @ 999 mls/hr IV. 8: I reevaluated and updated the patient 2148: Daptomycin 378 mg/Sodium Chloride 57.56 ml @ 100mls/hr IV. 2116: Imipenem/Cilastatin Sodium 500mg/Dextrose 110ml @ 100 mls/hr IV. 8: I discussed the patient's case with Dr. Novoa of [facility], he has agreed to evaluate the patient for further management and care. 3: Upon reexamination the patient is doing well. I discussed results and treatment plan with the patient. She verbalizes agreement and understanding. I spoke with Dr. Novoa from the [facility] Hospitalist Service. The patient will be evaluated for further management. Medical Decision Differential diagnosis: Etiologies such as metabolic, infection, hypo/hyperglycemia, electrolyte abnormalities, cardiac sources, intracerebral event, toxicologic, neurologic, as well as others were entertained. This is an 81-year-old female who presents emergency department complaining of altered mental status as well as fevers at home. The patient has a history of septicemia. She does appear to have a urinary tract infection and does have an elevation in her white blood count cell count here. Family wishes to do a conservative antibiotic approach and so the patient was started on Rocephin. I did discuss the case with the hospitalist service on-call who agreed to accept the patient. Patient and family were in agreement with the treatment plan. Medication Reconcilliation Current Medication List: was personally reviewed by me Blood Pressure Screening Patient's blood pressure: Normal blood pressure Blood pressure disposition: Did not require urgent referral Consults Time Called: [id number] Consulting Physician: Dr. Novoa - [facility] Returned Call: [phone] I discussed the patient's case with Dr. Novoa of [facility], he has agreed to evaluate the patient for further management and care. Impression Primary Impression: Altered mental status Additional Impression: UTI (urinary tract infection) Scribe Attestation The scribe's documentation has been prepared under my direction and personally reviewed by me in its entirety. I confirm that the note above accurately reflects all work, treatment, procedures, and medical decision making performed by me. Departure Information Dispostion Being Evaluated By Hospitalist Referrals Kamini Dunn M.D. (PCP) Patient Instructions My [facility] Problem Qualifiers Primary Impression: Altered mental status Altered mental status type: unspecified Qualified Codes: R41.82 - Altered mental status, unspecified Additional Impression: UTI (urinary tract infection) Urinary tract infection type: acute cystitis Hematuria presence: without hematuria Qualified Codes: N30.00 - Acute cystitis without hematuria
[2017-05-20 21:43] LABS: URINE APPEARANCE CLOUDY (CLEAR); URINE COLOR DK YELLOW; URINE EPITHELIAL CELL AUTO >30 /lpf (0-5); URINE NITRITE NEG (NEG); URINE SPECIFIC GRAVITY 1.031 (1.000-1.030); UROBILINOGEN NEG (NEG); ZZUR CULT IF INDIC CLEAN CATCH YES
[2017-05-20 21:44] LABS: MANUAL MICROSCOPIC REQUIRED? NO; REVIEW REQ? YES; URINE BILIRUBIN 1+ (NEG)
[2017-05-20 21:47] LABS: BASO % 0.2 %; BASO ABS # 0.03 K/uL (0-0.2); COMPLETE YES; EOS % 0.8 %; HEMATOCRIT 31.7 % (37-47); IG% 0.2 %; LYMPH % 7.3 %; LYMPH ABS # 0.95 K/uL (1.2-3.4); MEAN CELL VOLUME 92.2 fL (80-100); MEAN CORPUSCULAR HEMOGLOBIN 29.4 pg (25-34); MEAN CORPUSCULAR HGB CONC 31.9 g/dl (32-36); MEAN PLATELET VOLUME 10.1 fL (7.4-10.4); MONO % 8.1 %; NEUT % 83.4 %; PLATELET COUNT 297 K/uL (130-400); RED BLOOD COUNT 3.44 M/uL (4.2-5.4); WHITE BLOOD COUNT 12.99 K/uL (4.8-10.8)
[2017-05-20] MEDS ORDERED: DAPTOmycin IV 378 MG in SODIUM CHLORIDE 0.9% 50ML 50 ML IV STA (21:49)
[2017-05-20] MEDS ORDERED: IMIPENEM/CILASTATIN IV 500 MG in DEXTROSE 5% 100ML 100 ML IV STA (21:49)
[2017-05-20 21:56] LABS: PARTIAL THROMBOPLASTIN RATIO 1.1
[2017-05-20 22:08] LABS: ALT/SGPT 74 U/L (12-78); BLOOD UREA NITROGEN 26 mg/dl (7-18); BUN/CREATININE RATIO 15.1 (10-20); CALCIUM 8.2 mg/dl (8.5-10.1); CARBON DIOXIDE 25 mmol/L (21-32); CHLORIDE 100 mmol/L (98-107); GLUCOSE 254 mg/dl (70-99); SODIUM 132 mmol/L (136-145)
[2017-05-20 22:13] LABS: ALB/GLOB RATIO 0.6 (0.9-2); ALKALINE PHOSPHATASE 593 U/L (45-117); AST/SGOT 122 U/L (15-37)
--- NOTE | 2017-05-20 22:15 | DIAGNOSTIC IMAGING REPORT ---
CHEST ONE VIEW PORTABLE HISTORY: Sepsis COMPARISON: Chest 03/21/2017. FINDINGS: No pneumothorax. The heart remains mildly enlarged. Left basilar densities. Focal thickening within the left lung apex is again noted. There is associated destruction of the left first rib. The right lung remains clear. A common bile duct stent is noted. There is an IVC filter. There are surgical clips within abdomen. Pathologic fracture at the proximal left humerus remains displaced. IMPRESSION: 1. Patchy left basilar airspace opacities. This could represent atelectasis or pneumonia. 2. No change in the destructive left apical lesion and pathologic fracture at the left humeral neck. Electronically signed by: Donovan Pan M.D. 05/20/2017 10:14 PM Dictated Date/Time: 05/20/2017 10:10 PM
[2017-05-20] MEDS ORDERED: CEFTRIAXONE SOD INJ 1 GM ADDVIAL IV STA (22:56)
[2017-05-20] MEDS ORDERED: FNTTP50 TD (23:11)
[2017-05-20] MEDS ORDERED: FURO-85 PO (23:13)
[2017-05-20] MEDS ORDERED: POLY335019 PO (23:18)
[2017-05-20] MEDS ORDERED: VANC1CAP19 PO (23:21)
[2017-05-20] MEDS ORDERED: PANT40TA PO (23:27)
[2017-05-21 00:10] VITALS: BP 144/66; PULSE 80; TEMP 36.6; O2SAT 96
[2017-05-21] MEDS ORDERED: MAGNESIUM HYDROXIDE SUSP 30 ML UDC PO PRN (00:45)
[2017-05-21] MEDS ORDERED: ONDANSETRON INJ 2 MG/ML 2 ML VIAL IV PRN (00:45)
[2017-05-21] MEDS ORDERED: ALUMINUM/MAGNESIUM/SIMETH (MAALOX MAX) 30 ML UDC PO PRN (00:45)
[2017-05-21] MEDS ORDERED: POLYETHYLENE (MIRALAX) 17 GM PACK PO PRN (00:45)
[2017-05-21] MEDS ORDERED: ACETAMINOPHEN 325 MG TAB PO PRN ×2 (00:45→01:00)
[2017-05-21] MEDS ORDERED: ONDANSETRON 8 MG TAB PO PRN (01:00)
[2017-05-21] MEDS ORDERED: SENNA 8.6 MG TAB PO PRN (01:00)
[2017-05-21] MEDS ORDERED: FENTANYL 50 MCG/HR TDSY TD SCH (01:00)
[2017-05-21] MEDS ORDERED: NON-FORMULARY MEDICATION (Polyethylene Glycol 3350 (Miralax) 17 GM) PO PRN (01:00)
[2017-05-21] MEDS ORDERED: HYDROCODONE/ACETAMINOPHEN 7.5/325MG TAB PO PRN (01:00)
[2017-05-21] MEDS ORDERED: FUROSEMIDE 20 MG TAB PO PRN (01:00)
--- NOTE | 2017-05-21 01:01 | History and Physical ---
History & Physical Date & Time of Service: May 21, 2017 at 00:18 Chief Complaint: Low Bp, Fever, Dehydrated Primary Care Physician: Kamini Dunn M.D. History of Present Illness Source: patient, family (daughters) The patient presents with malaise, which she reports started this morning. This morning, she had a fever 102.7. She was given a dose Tylenol which helped bring her temperature down to 99. This was followed by nausea and vomiting. She denies having any pain. Her systolic blood pressures also measure this morning at 152, which is reported to be approximately her baseline.however with ongoing nausea, vomiting and poor by mouth intake during the day, the daughters repeated blood pressure this afternoon and come down to 110 systolic. This is of in addition to her missing her lisinopril dose today due to nausea. This evening her temperature was 99.1, prompting daughters to bring to the ED for further evaluation. In general, she has a poor appetite and this is been unchanged today. She has not had complains of chest pain, coughing, shortness of breath, wheezing , palpitations or orthopnea. No diarrhea, or constipation. As background to this patient, was admitted for UTI in 01/2017. She unfortunately developed C.difficile at that time, but did complete treatment. She was discharged home but returned 1 month later for UTI with E.coli and enterococcus bacteremia. She also had persistent C.difficile. She was discharged on Amoxicillin, Keflex and 8 week course of PO Vancomycin. She still has 3 days left of her Vancomycin taper. She has metastatic renal cell carcinoma with history of unilateral nephrectomy. She has been on multiple chemotherapeutic agents. She is currently on Opdivo salvage, her last dose was [address] Conner. Past Medical/Surgical History Medical Problems: (1) Diabetes Status: Chronic Now on Levemir BID (2) DVT (deep venous thrombosis) Status: Chronic Has a filter placed (3) Hypertension Status: Chronic On Lisinopril (4) Hypocalcemia Status: Resolved Caltrate Chew (5) Metastatic renal cell carcinoma to bone Permanent Comment: Status post left nephrectomy 1997 T2 N0 M0 Stage II Bone metastasis right iliac with progressive pain Status post completion of radiation therapy 05/31/2011 received 4950 cGy Destructive lesion left second rib and chest wall Status post completion of radiation therapy 12/03/2014 received 4500 cGy Destructive lesion left proximal humerus Status post completion of radiation therapy to the left humerus 04/19/2016 receive 4000 cGy Status: Chronic (6) Metastatic renal cell carcinoma to lung Status: Chronic (7) Secondary hyperparathyroidism Status: Resolved Family History Patient reports no known family medical history. Social History Smoking Status: Never Smoker Smokeless Tobacco Use: No Alcohol Use: none Drug Use: none Marital Status: Occupational Status: retired Immunizations History of Influenza Vaccine: Yes History of Tetanus Vaccine?: Unknown History of Pneumococcal: Yes History of Hepatitis B Vaccine: No Multi-Drug Resistant Organisms History of MDRO: No Allergies Coded Allergies: Adhesives (Verified Allergy, Mild, LOCAL SKIN IRRITATION, BLISTERS, ) Uncoded Allergies: ANTICOAGULANTS (Adverse Reaction, Intermediate, INCREASED INR -PER FAMILY, 05/20/17) Home Medications Scheduled Denosumab (Xgeva), 1 DOSE SQ MONTHLY Fentanyl (Duragesic), 50 MCG TD [id number] Insulin Detemir (Levemir Flextouch), 10 UNITS SQ AMPM Lactobacillus-Inulin (Culturelle), 1 CAP PO DAILY Levothyroxine Sodium (Levothyroxine Sodium), 200 MCG PO DAILY Lisinopril (Lisinopril), 10 MG PO DAILY Nivolumab (Opdivo), 1 DOSE IV [id number] Pantoprazole (Protonix), 40 MG PO QAM Vancomycin Hcl (Vancocin Hcl), 125 MG PO DAILY Scheduled PRN Acetaminophen Tab (Tylenol), 650 MG PO Q4 PRN for Pain Furosemide (Lasix), 20 MG PO DAILY PRN for EDEMA Hydrocodone/Acetaminophen 7.5MG/325MG (Waverly 7.5MG/325MG), 1-2 TAB PO Q4 PRN for Pain Ondansetron Hcl (Zofran), 8 MG PO Q8 PRN for Nausea Polyethylene Glycol 3350 (Miralax), 17 GM PO DAILY PRN for Constipation Senna (Senokot), 1 TAB PO DAILY PRN for Constipation Review of Systems A 10 point review of systems was negative unless stated above. Physical Exam Vital Signs Date Time Temp Pulse Resp B/P (MAP) Pulse Ox O2 Delivery O2 Flow Rate FiO2 05/20/17 23:04 78 20 118/52 99 Room Air 05/20/17 23:04 98 Room Air 05/20/17 21:53 74 20 119/53 96 Room Air 05/20/17 21:32 79 05/20/17 20:36 36.7 78 20 126/61 95 Room Air General Appearance: WD/WN, no apparent distress Head: normocephalic, atraumatic Eyes: normal inspection, EOMI ENT: hearing grossly normal, pharynx normal Neck: supple, no adenopathy, no JVD Respiratory/Chest: no respiratory distress, + decreased breath sounds (left base) Cardiovascular: regular rate, rhythm, no gallop, no murmur Abdomen/GI: normal bowel sounds, non tender, soft Genitourinary - Female: normal pelvic exam Back: no CVA tenderness, no muscle spasm Extremities/Musculoskelatal: no calf tenderness, no pedal edema Neurologic/Psych: alert, normal mood/affect, oriented x 3 Skin: normal color, warm/dry, no rash Lymphatic: no adenopathy Diagnostics Laboratory Results Results Past 24 Hours Test 05/20/17 21:30 05/20/17 21:38 Range/Units White Blood Count 12.99 4.8-10.8 K/uL Red Blood Count 3.44 4.2-5.4 M/uL Hemoglobin 10.1 12.0-16.0 g/dL Hematocrit 31.7 37-47 % Mean Corpuscular Volume 92.2 80-100 fL Mean Corpuscular Hemoglobin 29.4 25-34 pg Mean Corpuscular Hemoglobin Concent 31.9 32-36 g/dl Platelet Count 297 130-400 K/uL Mean Platelet Volume 10.1 7.4-10.4 fL Neutrophils (%) (Auto) 83.4 % Lymphocytes (%) (Auto) 7.3 % Monocytes (%) (Auto) 8.1 % Eosinophils (%) (Auto) 0.8 % Basophils (%) (Auto) 0.2 % Neutrophils # (Auto) 10.82 1.4-6.5 K/uL Lymphocytes # (Auto) 0.95 1.2-3.4 K/uL Monocytes # (Auto) 1.05 0.11-0.59 K/uL Eosinophils # (Auto) 0.11 0-0.5 K/uL Basophils # (Auto) 0.03 0-0.2 K/uL RDW Standard Deviation 53.9 36.4-46.3 fL RDW Coefficient of Variation 15.9 11.5-14.5 % Immature Granulocyte % (Auto) 0.2 % Immature Granulocyte # (Auto) 0.03 0.00-0.02 K/uL Prothrombin Time 11.0 9.0-12.0 SECONDS Prothromb Time International Ratio 1.0 0.9-1.1 Activated Partial Thromboplast Time 28.9 21.0-31.0 SECONDS Partial Thromboplastin Ratio 1.1 Urine Color DK YELLOW Urine Appearance CLOUDY CLEAR Urine pH 5.0 4.5-7.5 Urine Specific Steele 1.031 1.000-1.030 Urine Protein 1+ NEG Urine Glucose (UA) NEG NEG Urine Ketones TRACE NEG Urine Occult Blood 1+ NEG Urine Nitrite NEG NEG Urine Bilirubin 1+ NEG Urine Urobilinogen NEG NEG Urine Leukocyte Esterase SMALL NEG Urine WBC (Auto) 10-30 0-5 /hpf Urine RBC (Auto) 0-4 0-4 /hpf Urine Hyaline Casts (Auto) 5-10 0-5 /lpf Urine Epithelial Cells (Auto) >30 0-5 /lpf Urine Bacteria (Auto) NEG NEG Urine Yeast (Auto) PRESENT NONE PRSENT Sodium Level 132 136-145 mmol/L Potassium Level 5.0 3.5-5.1 mmol/L Chloride Level 100 98-107 mmol/L Carbon Dioxide Level 25 21-32 mmol/L Anion Gap 7.0 3-11 mmol/L Blood Urea Nitrogen 26 7-18 mg/dl Creatinine 1.70 0.60-1.20 mg/dl Est Creatinine Clear Calc Drug Dose 21.5 ml/min Estimated GFR () 32.2 Estimated GFR (Non- 27.8 BUN/Creatinine Ratio 15.1 10-20 Random Glucose 254 70-99 mg/dl Calcium Level 8.2 8.5-10.1 mg/dl Total Bilirubin 0.8 0.2-1 mg/dl Aspartate Amino Transf (AST/SGOT) 122 15-37 U/L Alanine Aminotransferase (ALT/SGPT) 74 12-78 U/L Alkaline Phosphatase 593 45-117 U/L Total Creatine Kinase 26 26-192 U/L Creatine Kinase MB < 0.5 0.5-3.6 ng/ml Creatine Kinase MB Ratio 0-3.0 Troponin I < 0.015 0-0.045 ng/ml Total Protein 7.2 6.4-8.2 gm/dl Albumin 2.7 3.4-5.0 gm/dl Globulin 4.5 2.5-4.0 gm/dl Albumin/Globulin Ratio 0.6 0.9-2 Bedside Lactic Acid Venous 0.78 0.90-1.70 mmol/L Microbiology Results 05/20/17 Blood Culture, Received Pending 05/20/17 Blood Culture, Received Pending 05/20/17 Urine Culture, Received Pending Diagnostic Radiology CHEST ONE VIEW PORTABLE HISTORY: Sepsis COMPARISON: Chest 03/21/2017. FINDINGS: No pneumothorax. The heart remains mildly enlarged. Left basilar densities. Focal thickening within the left lung apex is again noted. There is associated destruction of the left first rib. The right lung remains clear. A common bile duct stent is noted. There is an IVC filter. There are surgical clips within abdomen. Pathologic fracture at the proximal left humerus remains displaced. IMPRESSION: 1. Patchy left basilar airspace opacities. This could represent atelectasis or pneumonia. 2. No change in the destructive left apical lesion and pathologic fracture at the left humeral neck. Electronically signed by: Donovan Pan M.D. 05/20/2017 10:14 PM Dictated Date/Time: 05/20/2017 10:10 PM Impression Assessment and Plan 81-year-old female presented with sudden onset malaise, nausea and vomiting. Her recent history is significant for repeated bouts of urinary tract infections requiring inpatient admission. On this visit, UA does appear abnormal, though she does have epithelial cells which would indicate the specimen is contaminated. A culture of the urine is still pending. Also noted is an elevation in her alkaline phosphatase and AST. She is noted to have previously had ERCP with stent placement. Recent ultrasound evaluation in 01/2017 also reveals that she does have metastatic disease to liver. They consider this point would be in the setting of suspected infection and question of a urine, does the patient have a possible obstructed bile duct stent. Our plan for her is as follows Possible Urinary Tract Infection - Review of culture data, shows that she has presacral pansensitive Escherichia coli in the urine in 01/2017 - Review of previous blood cultures show that in 02/2017 she grew out both Escherichia coli and enterococcus . - At this time the patient does not appear to be septic, so I recommend starting with narrow antibiotic coverage until culture data is available, including blood culture - Continue IV Rocephin 1 g IV daily - Rehydrate with NSS 100 mL/HR Acute Transaminitis - Alkaline phosphatase greater than 500 and AST 122 - Previous ultrasound from 02/13 shows pre-existing metastatic disease in the liver - Repeat right upper quadrant ultrasound to evaluate for bile duct stent obstruction - Monitor daily CMP Left basilar opacity - Atelectasis versus infection - Patient is not having any evidence of respiratory distress; the history does not suggest any respiratory symptoms - I would hold off on expanding coverage for pneumonia at this time given all stable she is from respiratory standpoint and to limit her risk of C. difficile Relative Hypotension - Noted to have been relatively hypotensive at home, blood pressures have been steady in the ER - Will hold lisinopril at this time, and follow over the course the day Acute on Chronic Kidney Disease - Creatinine 1.7 on arrival; previous measurements are approximately 1.5-1.6, however this in the setting of her being hospitalized and likely acutely unwell - Best creatinine noted to be 1.2 on 03/27/2017 - IV rehydration as above - Hold lisinopril History of recurrent C. difficile - Continue PO vancomycin - Continue probiotic Metastatic Renal Cell Carcinoma - Continue fentanyl - Continue Waverly - Followed by Dr. Conner in the outpatient setting; hold all chemotherapy agents Mild hyponatremia - Na 132 - Currently being rehydrated with relatively hypertonic fluid - Monitor daily BMP Type 2 DM - Hold Hold levemir, insulin SSI with AC/HS checks DVT - SCD - EUSEBIA - Heparin 5000 TID Code Status - DNR Disposition - Med/Surg - PT/OT orders placed Attending Addendum: I have physically seen and examined this patient, have supervised the medical residents activities, and agree with the H&P as noted above with the following exceptions as noted. The patient denies chest pain, palpitations, shortness of breath, cough, lower extremity swelling, vision change, hearing change, sore throat, chills, sweats , weight change, fatigue, abdominal pain, pelvic pain, blood in urine or stool, dysuria, urinary frequency or urgency, lightheadedness, dizziness, headache, memory loss, rash, imbalance, focal weakness. The review of systems is otherwise negative other than for that already noted above, and at least 10 systems have been reviewed. The patient is awake, alert and oriented 3, normocephalic and atraumatic, lying in bed and in no acute distress. HEENT--PERRL, EOMI, mucous membranes and oropharynx dry. Neck--supple, no JVD or bruits, thyroid normal, trachea midline, no adenopathy. Heart--normal S1 and S2, no extra beats, no murmurs, rubs or gallops. Lungs--clear bilaterally with decreased breath sounds left base, no respiratory distress, no accessory muscle use. Abdomen--normal bowel sounds and soft, nontender and nondistended, no hernias or masses, no organomegaly. Extremities--no cyanosis, clubbing or edema. There are good distal pulses b/l. Dermatologic--normal skin turgor, normal color, warm and dry. Neurologic--cranial nerves II through XII grossly intact. Rheumatologic--normal range of motion, nontender, muscles and joints. Psychiatric--normal affect. Assessment and Plan: 1. UTI/history of previous UTIs/history bacteremia with enterococcus and Escherichia coli--we'll place patient empirically on ceftriaxone 1 g IV daily. Follow blood and urine cultures. Place on normal saline with KCl 20 mEq 100 mils per hour. 2. C. difficile colitis--the severity of recurrent, and she presently is on a long taper vancomycin once daily. We'll increase her dosing to 250 mg by mouth 4 times a day and increase her probiotic from daily to 4 times a day while on IV antibiotics, and she would then likely a prolonged taper again 3. Abnormal LFTs/, bile duct stent/nausea and vomiting/known metastatic disease to liver--we'll order an ultrasound of right upper quadrant to assess the gallbladder and common bile duct stent. 4. Diabetes mellitus--hold Levemir 10 units subcutaneous twice a day, and place on Accu-Cheks before meals and at bedtime with NovoLog coverage per scale. Level of Care Med/Surg Advanced Directives Existing Advance Directive: No Existing Living Will: No Existing Power of Lead Burner Supervisor: No Resuscitation Status FULL NO CARDIOV/MECH FITO VTE Prophylaxis Risk Level: Moderate Given or contraindicated: Unfractionated heparin SQ Social Service Consult Cancer Patient Under [place]
[2017-05-21 01:15] VITALS: BMI 27.1
[2017-05-21] MEDS ORDERED: DEXTROSE 50% 50 ML SYR IV PRN (01:15)
[2017-05-21] MEDS ORDERED: GLUCOSE 10 TABS/TUBE PO PRN (01:15)
[2017-05-21] MEDS ORDERED: GLUCAGON FOR INJ 1 MG VIAL SQ PRN (01:15)
[2017-05-21] MEDS ORDERED: GLUCOSE 40% GEL 15 GM TUBE PO PRN (01:15)
[2017-05-21] MEDS: SODIUM CHLORIDE 0.9% 1000ML 1,000 ML IV SCH ×3 (04:21→23:37)
[2017-05-21] MEDS: HEPARIN SOD 5000 UNIT/0.5 ML CARP SQ SCH ×3 (06:00→22:00)
[2017-05-21] MEDS: LEVOTHYROXINE 200 MCG TAB PO SCH (06:20)
[2017-05-21] MEDS ORDERED: INULIN PO SCH ×2 (06:30→09:00)
[2017-05-21] MEDS ORDERED: LACTOBACILLUS PO SCH ×2 (06:30→09:00)
[2017-05-21 07:20] LABS: BASO % 0.4 %; BASO ABS # 0.03 K/uL (0-0.2); EOS % 2.2 %; HEMATOCRIT 26.7 % (37-47); IG% 0.4 %; LYMPH % 12.9 %; LYMPH ABS # 1.04 K/uL (1.2-3.4); MEAN CELL VOLUME 92.1 fL (80-100); MEAN CORPUSCULAR HEMOGLOBIN 29.7 pg (25-34); MEAN CORPUSCULAR HGB CONC 32.2 g/dl (32-36); MEAN PLATELET VOLUME 9.9 fL (7.4-10.4); MONO % 7.9 %; NEUT % 76.2 %; PLATELET COUNT 247 K/uL (130-400); WHITE BLOOD COUNT 8.09 K/uL (4.8-10.8)
--- NOTE | 2017-05-21 07:22 | DIAGNOSTIC IMAGING REPORT ---
ULTRASOUND RIGHT UPPER QUADRANT ABDOMEN CLINICAL HISTORY: Elevated hepatic transaminases. Common bile duct stent. COMPARISON STUDY: Abdominal ultrasound dated 03/25/2017. Abdominal CT dated 02/12/2017. TECHNIQUE: Real-time, grayscale, and color flow sonography of the right upper quadrant of the abdomen was performed. Images are reviewed in the transverse and longitudinal planes. The examination is significantly degraded by poor acoustic window. FINDINGS: Liver: The liver is enlarged, measuring over 22 cm in length. There is intrahepatic biliary ductal dilatation. Linear echogenic reflectors are consistent with pneumobilia. Echotexture is heterogeneous. The main portal vein is patent. Numerous hyperechoic lesions are seen throughout the liver and suggest metastatic disease. The largest is in the right lobe measures up to 3.4 cm. Gallbladder: The gallbladder is filled with shadowing gallstones. There is no clear sonographic evidence of acute cholecystitis. No pericholecystic fluid is seen. The common bile duct is not well visualized. The stent was not clearly seen. Pancreas: Not well visualized due to overlying bowel gas. Right kidney: Survey images of the right kidney demonstrate cortical atrophy. There is no hydronephrosis. Ascites: None. IMPRESSION: 1. The liver is enlarged and heterogeneous. Numerous hepatic lesions are identified suggesting multifocal hepatic metastatic disease. 2. The common bile duct is not well assessed and the common bile duct stent was not visualized. The pancreas was also not seen. 3. Cholelithiasis without clear sonographic evidence of acute cholecystitis. The gallbladder was suboptimally assessed. 4. Mild intrahepatic biliary ductal dilatation and pneumobilia are noted. Electronically signed by: Shadi Echols M.D. 05/21/2017 7:20 AM Dictated Date/Time: 05/21/2017 7:15 AM
[2017-05-21 07:32] VITALS: BP 121/65; PULSE 79; TEMP 36.7; O2SAT 96
[2017-05-21 07:49] LABS: BUN/CREATININE RATIO 16.5 (10-20); CALCIUM 7.4 mg/dl (8.5-10.1); CREATININE 1.4 mg/dl (0.60-1.20); POTASSIUM 4.7 mmol/L (3.5-5.1)
[2017-05-21 07:52] LABS: COMPLETE YES
[2017-05-21 07:55] LABS: ALB/GLOB RATIO 0.6 (0.9-2)
[2017-05-21] MEDS: RASPBERRY SYRUP 5 ML UDP PO SCH ×4 (08:52→20:52)
[2017-05-21] MEDS: VANCOMYCIN HCL 250 MG/5 ML SOLN PO SCH ×4 (08:52→20:52)
[2017-05-21] MEDS: LACTOBACILLUS ACIDOPHILUS (FLORANEX) TAB PO SCH ×3 (08:53→17:54)
[2017-05-21] MEDS ORDERED: VANCOMYCIN HCL 125 MG PO SCH (09:00)
[2017-05-21] MEDS: INSULIN ASPART 100 UNITS/ML 3 ML PEN SC SCH ×4 (09:01→20:59)
[2017-05-21] MEDS ORDERED: ACETAMINOPHEN IV 650 MG in EMPTY BAG 0 ML IV PRN (09:45)
[2017-05-21] MEDS: FAMOTIDINE IV INJ 20 MG in DEXTROSE 5% 100ML 100 ML IV SCH ×2 (10:30→22:04)
--- NOTE | 2017-05-21 11:37 | Family Medicine Progress Note ---
Progress Note Date of Service May 21, 2017. Subjective Pt evaluation today including: conversation w/ patient, conversation w/ family , physical exam, chart review, lab review, review of studies, review of inpatient medication list Pain: denies PO Intake: adequate Voiding: no voiding problems Overnight, no acute events, Patient has no complaints. She denies abdominal pain, N/V CP, SOB , urinary symptoms Constitutional: No fever, No chills, No weakness Respiratory: No cough, No sputum, No wheezing Cardiovascular: No chest pain, No edema, No palpitations Abdomen: No pain, No nausea, No vomiting Musculoskeletal: No swelling, No calf pain Female : No dysuria, No urinary frequency, No hematuria Skin: No rash, No itch Medications Current Inpatient Medications Medications (Trade) Dose Ordered Sig/Suleiman Route Start Time Stop Time Status Last Admin Dose Admin Heparin Sodium (Porcine) (Heparin Sq 5000 Unit/0.5ml) 5,000 unit Q8H SQ 05/21/17 06:00 06/20/17 05:59 Al Hydrox/Mg Hydrox/Simethicone (Maalox Max Susp) 15 ml Q4H PRN PO 05/21/17 00:45 06/20/17 00:44 Magnesium Hydroxide (Milk Of Magnesia Susp) 30 ml Q6H PRN PO 05/21/17 00:45 06/20/17 00:44 Polyethylene (Miralax Powder Packet) 17 gm DAILY PRN PO 05/21/17 00:45 06/20/17 00:44 Ondansetron HCl (Zofran Inj) 4 mg Q6H PRN IV 05/21/17 00:45 06/20/17 00:44 Ceftriaxone Sodium 1 gm/ Dextrose 50 ml @ 100 mls/hr Q24H IV 05/21/17 23:00 05/24/17 23:29 Acetaminophen (Tylenol Tab) 650 mg Q4 PRN PO 05/21/17 01:00 06/20/17 00:59 Acetaminophen/ Hydrocodone Bitart ([place] 7.5/325 Tab) 1 tab Q4 PRN PO 05/21/17 01:00 06/04/17 00:59 Levothyroxine Sodium (Synthroid Tab) 200 mcg DAILYBB PO 05/21/17 06:30 06/20/17 06:59 05/21/17 06:20 200 MCG Ondansetron HCl (Zofran Tab) 8 mg Q8 PRN PO 05/21/17 01:00 06/20/17 00:59 Senna (Senokot Tab) 8.6 mg DAILY PRN PO 05/21/17 01:00 06/20/17 00:59 Insulin Aspart (novoLOG ASPART) SLIDING SCALE G... ACHS SC 05/21/17 06:30 06/20/17 06:59 05/21/17 12:27 6 UNITS Glucose (Glucose 40% Gel) 15-30 GRAMS 15 GRAMS... UD PRN PO 05/21/17 01:15 06/20/17 01:14 Glucose (Glucose Chew Tab) 4-8 Tablets 4 Tabl... UD PRN PO 05/21/17 01:15 06/20/17 01:14 Dextrose (Dextrose 50% 50ML Syringe) 25-50ML OF 50% DW IV FOR... UD PRN IV 05/21/17 01:15 06/20/17 01:14 Glucagon (Glucagon Inj) 1 mg UD PRN SQ 05/21/17 01:15 06/20/17 01:14 Vancomycin HCl (Vancomycin Oral Soln) 250 mg QID PO 05/21/17 08:00 06/04/17 08:59 05/21/17 13:20 250 MG Lactobacillus Acidophilus (Floranex Tab) 4 tab TIDM PO 05/21/17 08:00 06/20/17 07:59 05/21/17 13:20 4 TAB Sodium Chloride 1,000 ml @ 100 mls/hr Q10H IV 05/21/17 04:15 06/20/17 04:14 05/21/17 13:52 100 MLS/HR Fentanyl (Duragesic Patch) 50 mcg Q3D TD 05/23/17 06:00 06/06/17 05:59 Miscellaneous (Fentanyl Patch Remove & Waste) 1 ea Q3D N/A 05/23/17 05:59 06/22/17 05:58 Miscellaneous Information (Check Fentanyl Patch Placement) 1 ea QS N/A 05/23/17 08:00 06/22/17 07:59 Raspberry (Raspberry Syrup 5ml Cup) 5 ml QID PO 05/21/17 08:00 06/04/17 07:59 05/21/17 13:21 5 ML Famotidine 20 mg/ Dextrose 102 ml @ 200 mls/hr Q12H IV 05/21/17 10:30 06/20/17 10:29 05/21/17 10:30 200 MLS/HR Acetaminophen 650 mg/Empty Bag 65 ml @ 260 mls/hr Q6H PRN IV 05/21/17 09:45 06/20/17 09:44 Objective Vital Signs Date Time Temp Pulse Resp B/P (MAP) Pulse Ox O2 Delivery O2 Flow Rate FiO2 05/21/17 16:48 36.6 84 16 132/66 (88) 97 Room Air 05/21/17 08:00 Room Air 05/21/17 07:32 36.7 79 17 121/65 (83) 96 Room Air 05/21/17 03:10 73 16 111/53 99 05/21/17 01:15 Room Air 05/21/17 01:08 85 16 129/59 98 Room Air 05/21/17 00:30 81 16 120/55 96 Room Air 05/21/17 00:10 36.6 80 18 144/66 (92) 96 Room Air 05/20/17 23:04 78 20 118/52 99 Room Air 05/20/17 23:04 98 Room Air 05/20/17 21:53 74 20 119/53 96 Room Air 05/20/17 21:32 79 05/20/17 20:36 36.7 78 20 126/61 95 Room Air Physical Exam Notes: GENERAL: alert, well appearing, no distress, non-toxic EYE EXAM: normal conjunctiva, PERRL and EOM's grossly intact OROPHARYNX: no exudate, no erythema, lips, buccal mucosa, and tongue normal and mucous membranes are moist NECK: supple, no nuchal rigidity, no adenopathy, non-tender LUNGS: Clear to auscultation. Normal chest wall mechanics HEART: no murmurs, S1 normal and S2 normal ABDOMEN: abdomen soft, non-tender, normo-active bowel sounds, no masses, no rebound or guarding. UPPER EXTREMITIES: upper extremities are grossly normal. LOWER EXTREMITIES: No pitting edema. NEURO EXAM: AOx3 cranial nerves II-XII grossly intact, normal speech, Laboratory Results Results Past 24 Hours Test 05/20/17 21:30 05/20/17 21:38 05/21/17 07:06 05/21/17 07:24 Range/Units White Blood Count 12.99 8.09 4.8-10.8 K/uL Red Blood Count 3.44 2.90 4.2-5.4 M/uL Hemoglobin 10.1 8.6 12.0-16.0 g/dL Hematocrit 31.7 26.7 37-47 % Mean Corpuscular Volume 92.2 92.1 80-100 fL Mean Corpuscular Hemoglobin 29.4 29.7 25-34 pg Mean Corpuscular Hemoglobin Concent 31.9 32.2 32-36 g/dl Platelet Count 297 247 130-400 K/uL Mean Platelet Volume 10.1 9.9 7.4-10.4 fL Neutrophils (%) (Auto) 83.4 76.2 % Lymphocytes (%) (Auto) 7.3 12.9 % Monocytes (%) (Auto) 8.1 7.9 % Eosinophils (%) (Auto) 0.8 2.2 % Basophils (%) (Auto) 0.2 0.4 % Neutrophils # (Auto) 10.82 6.17 1.4-6.5 K/uL Lymphocytes # (Auto) 0.95 1.04 1.2-3.4 K/uL Monocytes # (Auto) 1.05 0.64 0.11-0.59 K/uL Eosinophils # (Auto) 0.11 0.18 0-0.5 K/uL Basophils # (Auto) 0.03 0.03 0-0.2 K/uL RDW Standard Deviation 53.9 53.9 36.4-46.3 fL RDW Coefficient of Variation 15.9 15.9 11.5-14.5 % Immature Granulocyte % (Auto) 0.2 0.4 % Immature Granulocyte # (Auto) 0.03 0.03 0.00-0.02 K/uL Prothrombin Time 11.0 9.0-12.0 SECONDS Prothromb Time International Ratio 1.0 0.9-1.1 Activated Partial Thromboplast Time 28.9 21.0-31.0 SECONDS Partial Thromboplastin Ratio 1.1 Urine Color DK YELLOW Urine Appearance CLOUDY CLEAR Urine pH 5.0 4.5-7.5 Urine Specific [place] 1.031 1.000-1.030 Urine Protein 1+ NEG Urine Glucose (UA) NEG NEG Urine Ketones TRACE NEG Urine Occult Blood 1+ NEG Urine Nitrite NEG NEG Urine Bilirubin 1+ NEG Urine Urobilinogen NEG NEG Urine Leukocyte Esterase SMALL NEG Urine WBC (Auto) 10-30 0-5 /hpf Urine RBC (Auto) 0-4 0-4 /hpf Urine Hyaline Casts (Auto) 5-10 0-5 /lpf Urine Epithelial Cells (Auto) >30 0-5 /lpf Urine Bacteria (Auto) NEG NEG Urine Yeast (Auto) PRESENT NONE PRSENT Sodium Level 132 135 136-145 mmol/L Potassium Level 5.0 4.7 3.5-5.1 mmol/L Chloride Level 100 106 98-107 mmol/L Carbon Dioxide Level 25 23 21-32 mmol/L Anion Gap 7.0 6.0 3-11 mmol/L Blood Urea Nitrogen 26 23 7-18 mg/dl Creatinine 1.70 1.40 0.60-1.20 mg/dl Est Creatinine Clear Calc Drug Dose 21.5 25.6 ml/min Estimated GFR () 32.2 40.7 Estimated GFR (Non- 27.8 35.1 BUN/Creatinine Ratio 15.1 16.5 10-20 Random Glucose 254 211 70-99 mg/dl Calcium Level 8.2 7.4 8.5-10.1 mg/dl Total Bilirubin 0.8 0.5 0.2-1 mg/dl Aspartate Amino Transf (AST/SGOT) 122 75 15-37 U/L Alanine Aminotransferase (ALT/SGPT) 74 57 12-78 U/L Alkaline Phosphatase 593 476 45-117 U/L Total Creatine Kinase 26 26-192 U/L Creatine Kinase MB < 0.5 0.5-3.6 ng/ml Creatine Kinase MB Ratio 0-3.0 Troponin I < 0.015 0-0.045 ng/ml Total Protein 7.2 5.8 6.4-8.2 gm/dl Albumin 2.7 2.2 3.4-5.0 gm/dl Globulin 4.5 3.6 2.5-4.0 gm/dl Albumin/Globulin Ratio 0.6 0.6 0.9-2 Bedside Lactic Acid Venous 0.78 0.90-1.70 mmol/L Red Blood Cell Morphology Unremarkable Bedside Glucose 230 70-90 mg/dl Test 05/21/17 11:16 8/22/17 16:38 Range/Units Bedside Glucose 235 240 70-90 mg/dl Microbiology Results 05/20/17 Blood Culture, Received Pending 05/20/17 Blood Culture, Received Pending 05/20/17 Urine Culture - Preliminary, Resulted PIN-POINT GROWTH PRESENT, REINCUBATING. 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 s/p radiation therapt, presenting with N?V, malaise, suspected UTI Suspected UTI - Continue IV Rocephin 1 g IV daily - F/u Urine cx, Blood cx Acute Transaminitis - Alk Phos> 500 , AST 122 - U/S from 02/13 shows pre-existing metastatic disease in the liver - Repeat U/S findings consistent with mets to liver, cholelithiasis, without evidence of cholecystis, mild biliary ductal dilation, common bile duct not well seen on u/s -F/u CMP Left basilar opacity - Atelectasis versus infection - asymptomatic, afebrile - no added empiric abx coverage Relative Hypotension - Lisinopril remains held - Continue to monitor BPs Acute on Chronic Kidney Disease - improving - Cr 1.7 -->1.4 on arrival; Baseline 1.2-1.6 - Continue IV rehydration - lisinopril remains held History of recurrent C. difficile - Continue PO vancomycin - Continue probiotic Metastatic Renal Cell Carcinoma - Continue fentanyl - Continue [place] - management per Dr. Conner in clinic - chemotherapy on hold at present Mild hyponatremia - resolved, 132--> 135 - Currently being rehydrated with relatively hypertonic fluid - Monitor daily BMP Type 2 DM - insulin SSI with AC/HS checks DVT - SCD - [place] - Heparin 5000 TID Code Status - DNR Disposition - Med/Surg - PT/OT Continued [facility] stay due to: multiple IV medications needed Discharge planning: home Resident Tracking Resident Involvement: Resident Care Provided Care Provided: Adult Hospital Medicine Reviewed: Pt Seen/Exam by Me History feeling better this am daughter at bedside Constitutional: denies: fever Respiratory: negative: short of breath Cardiovascular: denies chest pain General Appearance: no apparent distress Respiratory: lungs clear, no respiratory distress Cardiovascular: regular rate, rhythm Gastrointestinal: normal bowel sounds, non tender, soft Neurologic/Psychiatric: alert, oriented x 3 Skin Characteristics: warm/dry Assessment/Plan Resident Physician Supervision Note: I was present with Dr. Nelson in bedside. I verified the pizano history and physical, reviewed labs and image studies, discussed the case with the resident and agree with the findings and care plan.
[2017-05-21 16:48] VITALS: BP 132/66; PULSE 84; TEMP 36.6; O2SAT 97
[2017-05-21] MEDS: INSULIN GLARGINE SOLOSTAR 100 UNITS/ML 3 ML PEN SC SCH (22:10)
[2017-05-21] MEDS: CEFTRIAXONE SOD INJ 1 GM in DEXTROSE 5% ADD-VANTAGE 50ML 50 ML IV SCH (23:32)
[2017-05-22 00:44] VITALS: BP 150/65; PULSE 92; TEMP 36.7; O2SAT 94
[2017-05-22] MEDS: HEPARIN SOD 5000 UNIT/0.5 ML CARP SQ SCH ×3 (06:00→21:16)
[2017-05-22] MEDS: LEVOTHYROXINE 200 MCG TAB PO SCH (06:27)
[2017-05-22 07:22] VITALS: BP 150/70; PULSE 81; TEMP 36.6; O2SAT 96
[2017-05-22 07:48] LABS: BASO % 0.6 %; BASO ABS # 0.04 K/uL (0-0.2); COMPLETE YES; EOS % 2.6 %; IG% 0.3 %; LYMPH % 16.8 %; LYMPH ABS # 1.17 K/uL (1.2-3.4); MEAN CELL VOLUME 93.2 fL (80-100); MEAN CORPUSCULAR HEMOGLOBIN 28.9 pg (25-34); MEAN PLATELET VOLUME 9.6 fL (7.4-10.4); MONO % 9.7 %; PLATELET COUNT 272 K/uL (130-400); RED BLOOD COUNT 3.11 M/uL (4.2-5.4); WHITE BLOOD COUNT 6.98 K/uL (4.8-10.8)
[2017-05-22 08:12] LABS: BUN/CREATININE RATIO 15.8 (10-20); CALCIUM 7.2 mg/dl (8.5-10.1); CREATININE 1.2 mg/dl (0.60-1.20); POTASSIUM 4.3 mmol/L (3.5-5.1)
[2017-05-22] MEDS: VANCOMYCIN HCL 250 MG/5 ML SOLN PO SCH ×4 (08:12→21:10)
[2017-05-22] MEDS: LACTOBACILLUS ACIDOPHILUS (FLORANEX) TAB PO SCH ×3 (08:13→16:37)
[2017-05-22] MEDS: RASPBERRY SYRUP 5 ML UDP PO SCH ×4 (08:13→21:10)
[2017-05-22] MEDS ORDERED: PHARMACY GLYCEMIC MGMT CONSULT SCH (08:34)
[2017-05-22 08:46] LABS: ESTIMATED AVERAGE GLUCOSE 212 mg/dl; HA1C FLAG Normal (Normal)
[2017-05-22] MEDS: INSULIN GLARGINE SOLOSTAR 100 UNITS/ML 3 ML PEN SC SCH ×2 (08:56→21:16)
[2017-05-22] MEDS: INSULIN ASPART 100 UNITS/ML 3 ML PEN SC SCH ×4 (08:59→21:15)
--- NOTE | 2017-05-22 09:35 | Pharmacy Progress Note ---
Glycemic Control Intl Consult Date of Service May 22, 2017. Scope Glycemic Pharmacist consulted by Dr Nelson on 05/22/17 for glycemic control and to write orders per [facility] inpatient glycemic control protocol Objective Weight (Kilograms): 61.500 Accuchecks BSG (last 24hrs): Test 05/21/17 11:16 05/21/17 16:38 05/21/17 19:59 05/22/17 07:28 Bedside Glucose 235 mg/dl (70-90) 240 mg/dl (70-90) 337 mg/dl (70-90) Random Glucose 204 mg/dl (70-99) Laboratory Data (last 24hrs) Test 05/22/17 07:28 Anion Gap 7.0 mmol/L BUN/Creatinine Ratio 15.8 Blood Urea Nitrogen 19 mg/dl Creatinine 1.20 mg/dl Hemoglobin A1c 9.0 % Potassium Level 4.3 mmol/L Sodium Level 138 mmol/L White Blood Count 6.98 K/uL Red Blood Count 3.11 M/uL Hemoglobin 9.0 g/dL Hematocrit 29.0 % Mean Corpuscular Volume 93.2 fL Mean Corpuscular Hemoglobin 28.9 pg Mean Corpuscular Hemoglobin Concent 31.0 g/dl Platelet Count 272 K/uL Mean Platelet Volume 9.6 fL Neutrophils (%) (Auto) 70.0 % Lymphocytes (%) (Auto) 16.8 % Monocytes (%) (Auto) 9.7 % Eosinophils (%) (Auto) 2.6 % Basophils (%) (Auto) 0.6 % Neutrophils # (Auto) 4.89 K/uL Lymphocytes # (Auto) 1.17 K/uL Monocytes # (Auto) 0.68 K/uL Eosinophils # (Auto) 0.18 K/uL Basophils # (Auto) 0.04 K/uL HbA1c Test 05/22/17 07:28 Hemoglobin A1c 9.0 % (4.5-5.6) H Recent Pertinent Medications Outpatient Anti-diabetic Regimen: * Levemir 10 units BID * A1c = 9.0 % 05/22/17 The patient is currently receiving: * Basal insulin: Lantus 10 units every 12 hours * Correctional Insulin: Novolog Correction per scale ACHS Goal Range: Low 110 mg/dL - High 140 mg/dL Correction Factor: 40 mg/dL/unit * Prandial insulin: Per carb ratio of 1 unit per 13 grams CHO consumed Risk Factors for Insulin Resistance: * Infection * Diet Assessment & Plan ASSESSMENT: * 81 yo diabetic F admitted w/ N/V and suspected UTI, currently receiving basal/ bolus regimen for BSGs consistently in the 200's * A1c this AM of 9.0% indicative of OK control for this patient * Given her current renal carcinoma w/ mets and other comorbidities, I would be hard pressed to say her goal A1c should be any tighter than 8.5% * Over the past 24 hours, patient received wt-based Novolog and BSGs remained > 200 and bedtime peaked at 337 * Lantus was initiated last night and Fasting BSG this AM 187 * Plan for her control is to continue current basal regimen and tighten Novolog * Main problem over the past 24 hours was a lack of basal insulin which has already been corrected * ADA & AACE recommend a goal blood sugar range 140-180 mg/dl for the majority of critically ill & non-critically ill patients. However, more stringent targets may be selected in individual cases. Current goal already 110-140 mg/dL per MD. I would loosen in the future if BSGs ever dip to lower end of goal range or below. PLAN FOR INPATIENT GLYCEMIC CONTROL: * Basal insulin with LANTUS 10 units SQ BID * Correctional Insulin with NOVOLOG per scale ACHS * Goal Range: Low 110 mg/dL - High 140 mg/dL * Correction Factor: 25 mg/dL/unit * Nutritional / Prandial insulin per carb ratio of 1 unit per 9 grams CHO consumed * Please note that the plan above was derived based on current level of insulin resistance and hospital stress. These recommendations are appropriate for inpatient admission only. Plan of care upon discharge will need to be reassessed to avoid potential outpatient hypo/hyperglycemia. Thank you.
[2017-05-22] MEDS: SODIUM CHLORIDE 0.9% 1000ML 1,000 ML IV SCH ×2 (09:38→21:11)
[2017-05-22] MEDS: FAMOTIDINE IV INJ 20 MG in DEXTROSE 5% 100ML 100 ML IV SCH ×2 (11:04→22:23)
--- NOTE | 2017-05-22 11:53 | Family Medicine Progress Note ---
Progress Note Date of Service May 22, 2017. Subjective Pt evaluation today including: conversation w/ patient, conversation w/ family , physical exam, chart review, lab review, review of studies, review of inpatient medication list Pain: denies PO Intake: adequate NO Acute events overnight, Patietn denies any complaints. NO Abdominal pain, N/V , CP, Calf tenderness, SOB Constitutional: No fever, No chills, No weakness Respiratory: No cough, No sputum, No shortness of breath Cardiovascular: No chest pain, No edema Abdomen: No pain, No nausea, No vomiting Female : No dysuria, No urinary frequency, No hematuria Skin: No rash, No itch Medications Current Inpatient Medications Medications (Trade) Dose Ordered Sig/Suleiman Route Start Time Stop Time Status Last Admin Dose Admin Heparin Sodium (Porcine) (Heparin Sq 5000 Unit/0.5ml) 5,000 unit Q8H SQ 05/21/17 06:00 06/20/17 05:59 Al Hydrox/Mg Hydrox/Simethicone (Maalox Max Susp) 15 ml Q4H PRN PO 05/21/17 00:45 06/20/17 00:44 Magnesium Hydroxide (Milk Of Magnesia Susp) 30 ml Q6H PRN PO 05/21/17 00:45 06/20/17 00:44 Polyethylene (Miralax Powder Packet) 17 gm DAILY PRN PO 05/21/17 00:45 06/20/17 00:44 Ondansetron HCl (Zofran Inj) 4 mg Q6H PRN IV 05/21/17 00:45 06/20/17 00:44 Ceftriaxone Sodium 1 gm/ Dextrose 50 ml @ 100 mls/hr Q24H IV 05/21/17 23:00 05/24/17 23:29 05/21/17 23:32 100 MLS/HR Acetaminophen (Tylenol Tab) 650 mg Q4 PRN PO 05/21/17 01:00 06/20/17 00:59 Acetaminophen/ Hydrocodone Bitart ([place] 7.5/325 Tab) 1 tab Q4 PRN PO 05/21/17 01:00 06/04/17 00:59 Levothyroxine Sodium (Synthroid Tab) 200 mcg DAILYBB PO 05/21/17 06:30 06/20/17 06:59 05/22/17 06:27 200 MCG Ondansetron HCl (Zofran Tab) 8 mg Q8 PRN PO 05/21/17 01:00 06/20/17 00:59 Senna (Senokot Tab) 8.6 mg DAILY PRN PO 05/21/17 01:00 06/20/17 00:59 Insulin Aspart (novoLOG ASPART) SLIDING SCALE G... ACHS SC 05/21/17 06:30 06/20/17 06:59 05/22/17 18:15 6 UNITS Glucose (Glucose 40% Gel) 15-30 GRAMS 15 GRAMS... UD PRN PO 05/21/17 01:15 06/20/17 01:14 Glucose (Glucose Chew Tab) 4-8 Tablets 4 Tabl... UD PRN PO 05/21/17 01:15 06/20/17 01:14 Dextrose (Dextrose 50% 50ML Syringe) 25-50ML OF 50% DW IV FOR... UD PRN IV 05/21/17 01:15 06/20/17 01:14 Glucagon (Glucagon Inj) 1 mg UD PRN SQ 05/21/17 01:15 06/20/17 01:14 Vancomycin HCl (Vancomycin Oral Soln) 250 mg QID PO 05/21/17 08:00 06/04/17 08:59 05/22/17 16:38 250 MG Lactobacillus Acidophilus (Floranex Tab) 4 tab TIDM PO 05/21/17 08:00 06/20/17 07:59 05/22/17 16:37 4 TAB Sodium Chloride 1,000 ml @ 100 mls/hr Q10H IV 05/21/17 04:15 06/20/17 04:14 05/22/17 09:38 100 MLS/HR Fentanyl (Duragesic Patch) 50 mcg Q3D TD 05/23/17 06:00 06/06/17 05:59 Miscellaneous (Fentanyl Patch Remove & Waste) 1 ea Q3D N/A 05/23/17 05:59 06/22/17 05:58 Miscellaneous Information (Check Fentanyl Patch Placement) 1 ea QS N/A 05/23/17 08:00 06/22/17 07:59 Raspberry (Raspberry Syrup 5ml Cup) 5 ml QID PO 05/21/17 08:00 06/04/17 07:59 05/22/17 16:37 5 ML Famotidine 20 mg/ Dextrose 102 ml @ 200 mls/hr Q12H IV 05/21/17 10:30 06/20/17 10:29 05/22/17 11:04 200 MLS/HR Acetaminophen 650 mg/Empty Bag 65 ml @ 260 mls/hr Q6H PRN IV 05/21/17 09:45 06/20/17 09:44 Insulin Glargine (Lantus Solostar Pen) 10 units BID SC 05/21/17 21:15 06/20/17 21:14 05/22/17 08:56 10 UNITS Miscellaneous Information (Consult Glycemic Management Pharmacy) 1 ea UD N/A 05/22/17 08:34 06/21/17 08:33 Objective Vital Signs Date Time Temp Pulse Resp B/P (MAP) Pulse Ox O2 Delivery O2 Flow Rate FiO2 05/22/17 16:00 96 Room Air 05/22/17 15:47 36.6 82 16 160/70 (100) 98 Room Air 05/22/17 08:00 Room Air 05/22/17 07:22 36.6 81 18 150/70 (96) 96 Room Air 05/22/17 00:44 36.7 92 20 150/65 (93) 94 Room Air 05/22/17 00:00 Room Air Physical Exam Notes: GENERAL: alert, well appearing, no distress, non-toxic EYE EXAM: normal conjunctiva, PERRL and EOM's grossly intact OROPHARYNX: no exudate, no erythema, lips, buccal mucosa, and tongue normal and mucous membranes are moist NECK: supple, no nuchal rigidity, no adenopathy, non-tender LUNGS: L sided Crackles HEART: no murmurs, S1 normal and S2 normal ABDOMEN: abdomen soft, non-tender, normo-active bowel sounds, no masses, no rebound or guarding. UPPER EXTREMITIES: upper extremities are grossly normal. LOWER EXTREMITIES: No pitting edema. NEURO EXAM: AOx3 cranial nerves II-XII grossly intact, normal speech, Laboratory Results Results Past 24 Hours Test 05/21/17 19:59 05/22/17 07:28 05/22/17 08:10 05/22/17 11:16 Range/Units Bedside Glucose 337 187 197 70-90 mg/dl White Blood Count 6.98 4.8-10.8 K/uL Red Blood Count 3.11 4.2-5.4 M/uL Hemoglobin 9.0 12.0-16.0 g/dL Hematocrit 29.0 37-47 % Mean Corpuscular Volume 93.2 80-100 fL Mean Corpuscular Hemoglobin 28.9 25-34 pg Mean Corpuscular Hemoglobin Concent 31.0 32-36 g/dl Platelet Count 272 130-400 K/uL Mean Platelet Volume 9.6 7.4-10.4 fL Neutrophils (%) (Auto) 70.0 % Lymphocytes (%) (Auto) 16.8 % Monocytes (%) (Auto) 9.7 % Eosinophils (%) (Auto) 2.6 % Basophils (%) (Auto) 0.6 % Neutrophils # (Auto) 4.89 1.4-6.5 K/uL Lymphocytes # (Auto) 1.17 1.2-3.4 K/uL Monocytes # (Auto) 0.68 0.11-0.59 K/uL Eosinophils # (Auto) 0.18 0-0.5 K/uL Basophils # (Auto) 0.04 0-0.2 K/uL RDW Standard Deviation 54.2 36.4-46.3 fL RDW Coefficient of Variation 16.0 11.5-14.5 % Immature Granulocyte % (Auto) 0.3 % Immature Granulocyte # (Auto) 0.02 0.00-0.02 K/uL Sodium Level 138 136-145 mmol/L Potassium Level 4.3 3.5-5.1 mmol/L Chloride Level 110 98-107 mmol/L Carbon Dioxide Level 21 21-32 mmol/L Anion Gap 7.0 3-11 mmol/L Blood Urea Nitrogen 19 7-18 mg/dl Creatinine 1.20 0.60-1.20 mg/dl Est Creatinine Clear Calc Drug Dose 30.1 ml/min Estimated GFR () 49.1 Estimated GFR (Non- 42.4 BUN/Creatinine Ratio 15.8 10-20 Random Glucose 204 70-99 mg/dl Estimated Average Glucose 212 mg/dl Hemoglobin A1c 9.0 4.5-5.6 % Calcium Level 7.2 8.5-10.1 mg/dl Test 05/22/17 11:26 05/22/17 16:18 Range/Units Total Bilirubin 0.3 0.2-1 mg/dl Direct Bilirubin 0.2 0-0.2 mg/dl Aspartate Amino Transf (AST/SGOT) 34 15-37 U/L Alanine Aminotransferase (ALT/SGPT) 43 12-78 U/L Alkaline Phosphatase 434 45-117 U/L Total Protein 6.1 6.4-8.2 gm/dl Albumin 2.2 3.4-5.0 gm/dl Bedside Glucose 223 70-90 mg/dl 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 s/p radiation therapt, presenting with N?V, malaise, suspected UTI Suspected UTI - Continue IV Rocephin 1 g IV daily - Urine cx >3 organisms, Blood cx NGTD Acute Transaminitis - Alk Phos> 500 , AST 122 - U/S from 02/13 shows pre-existing metastatic disease in the liver - Repeat U/S findings consistent with mets to liver, cholelithiasis, without evidence of cholecystis, mild biliary ductal dilation, common bile duct not well seen on u/s -GI consulted - CT abdomen: patent biliary stent, evidence of metastatic disease of liver, -grecia small pleural effusions, small pericardial effusion - 2.3 cm nodule within the base of the left lower lobe , consistent w / metastatic disease. -LFT's trending down -Await GI recommendations Left basilar opacity -Left sided crackles - Atelectasis more likely than PNA - asymptomatic, afebrile - no added empiric abx coverage Relative Hypotension - Lisinopril remains held - Continue to monitor BPs Acute on Chronic Kidney Disease - improving - Cr 1.7 -->1.4 -->1.2 on arrival; Baseline 1.2-1.6 - Continue IV rehydration - lisinopril remains held History of recurrent C. difficile - Continue PO vancomycin - Continue probiotic Metastatic Renal Cell Carcinoma - Continue fentanyl - Continue [place] - management per Dr. Conner in clinic - chemotherapy on hold at present Mild hyponatremia - resolved, 132--> 135 - Currently being rehydrated with relatively hypertonic fluid - Monitor daily BMP Type 2 DM - insulin SSI with AC/HS checks DVT - SCD - [place] - Heparin 5000 TID Code Status - DNR Disposition - Med/Surg - PT/OT Continued [facility] stay due to: multiple IV medications needed Discharge planning: home with home health Resident Tracking Resident Involvement: Resident Care Provided Care Provided: Adult Hospital Medicine Reviewed: Pt Seen/Exam by Me History continuing to do better Constitutional: denies: fever Respiratory: negative: cough, short of breath Cardiovascular: denies chest pain Gastrointestinal/Abdominal: negative: abdominal pain, diarrhea General Appearance: no apparent distress Respiratory: lungs clear, no respiratory distress Cardiovascular: regular rate, rhythm Neurologic/Psychiatric: alert, oriented x 3 Skin Characteristics: warm/dry Assessment/Plan Resident Physician Supervision Note: I was present with Dr. Nelson in bedside. I verified the pizano history and physical, reviewed labs and image studies, discussed the case with the resident and agree with the findings and care plan.
[2017-05-22 12:09] VITALS: Ht 152.4 cm; Wt 61.5 kg
--- NOTE | 2017-05-22 13:28 | Gastrointestinal Consultation ---
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 Urine cx previously grew Ecoli, she is on Ceftriaxone IV, also on Vancomycin for hx of Cdiff. GI was consulted for eval of possible biliary stent occlusion, or possible cholangitis causing recent sepsis. Pt had hx of cholangitis in 2014. Initially had ERCP w biliary stent placement in 2014, later underwent stent exchange to bare metal stent placement (10 mm x 6cm Geoff) on 07/[address] Tsang. At that time pt's LFTs were elevated due to the cholangitis and they eventually normalized. During this admission, her LFTs are noted to be normal except for elevated Alk phos now to 400s, but she also have evidence of hepatic metastatic diseases. Review of her abdominal imaging studies: 02/12/17 CT abd/pelvis: 1. Interval development of small bilateral pleural effusions and bilateral lower lobe opacities. This favors atelectasis. However, a pneumonia could also have a similar appearance. 2. No significant change in the multiple hepatic and pancreatic masses. 3. Destructive right iliac bone lesion and left lower anterior chest wall mass are again noted. 4. Cholelithiasis. 5. The common bile duct stent is patent. This results in the pneumobilia. 05/19/17 Abd u/s: 1. The liver is enlarged and heterogeneous. Numerous hepatic lesions are identified suggesting multifocal hepatic metastatic disease. 2. The common bile duct is not well assessed and the common bile duct stent was not visualized. The pancreas was also not seen. 3. Cholelithiasis without clear sonographic evidence of acute cholecystitis. The gallbladder was suboptimally assessed. 4. Mild intrahepatic biliary ductal dilatation and pneumobilia are noted. Past Medical/Surgical History Medical Problems: (1) Acute renal failure Status: Acute (2) Altered mental status Status: Acute (3) Sepsis Status: Acute (4) Sepsis Status: Acute (5) UTI (urinary tract infection) Status: Acute (6) UTI (urinary tract infection) Status: Acute (7) UTI (urinary tract infection) Status: Acute Past Medical History: See HPI above Family History Patient reports no known family medical history. Social History Smoking Status: Never Smoker Alcohol Use: none Drug Use: none Marital Status: Housing Status: lives with family Occupation Status: retired Allergies Coded Allergies: Adhesives (Verified Allergy, Mild, LOCAL SKIN IRRITATION, BLISTERS, ) Uncoded Allergies: ANTICOAGULANTS (Adverse Reaction, Intermediate, INCREASED INR -PER FAMILY, 05/20/17) Current Medications Home Meds and Scripts Medications Dose Route/Sig Max Daily Dose Days Date Category Dose Instructions Protonix (Pantoprazole Sodium) 40 Mg Tab 40 Mg PO QAM 05/20/17 Reported Vancocin Hcl (Vancomycin Hcl) 125 Mg Cap 125 Mg PO DAILY 3 05/20/17 Reported BEGIN 05/21/17 X 3 DAYS (TO COMPLETE 40 + DAY REGIMEN) Miralax (Polyethylene Glycol 3350) 1 Pow 17 Gm PO DAILY PRN 05/20/17 Reported Lasix (Furosemide) 20 Mg Tab 20 Mg PO DAILY PRN 05/20/17 Reported Duragesic (Fentanyl) 50 Mcg Tdsy 50 Mcg TD CQ72HR 05/20/17 Reported Lisinopril 10 Mg Tab 10 Mg PO DAILY 03/21/17 Reported Tylenol (Acetaminophen) 325 Mg Tab 650 Mg PO Q4 PRN 03/21/17 Reported ALTERNATES DOSES WITH NORCO Culturelle (Lactobacillus-Inulin) 1 Cap Cap 1 Cap PO DAILY 03/21/17 Reported Opdivo (Nivolumab) Unknown Strength Inj 1 Dose IV [id number] 03/21/17 Reported Zofran (Ondansetron HCl) 8 Mg Tab 8 Mg PO Q8 PRN 03/21/17 Reported Levothyroxine Sodium 200 Mcg Tab 200 Mcg PO DAILY 03/21/17 Reported [place] 7.5MG/325MG (Acetaminophen/Hydrocodone Bitart) Tab 1-2 Tab PO Q4 PRN 02/07/17 Reported PRN PAIN Levemir Flextouch (Insulin Detemir) 100 Unit/Ml Inj 10 Units SQ AMPM 02/07/17 Reported Xgeva (Denosumab) 120 Mg/1.7 Ml Inj 1 Dose SQ MONTHLY 03/16/16 Reported Senokot (Senna) 8.6 Mg Tab 1 Tab PO DAILY PRN 01/10/12 Reported Review of Systems Constitutional: No fever, No chills Respiratory: No cough, No shortness of breath Cardiac: No chest pain Abdomen: No pain, No nausea, No vomiting Skin: No jaundice Physical Exam Date Time Temp Pulse Resp B/P (MAP) Pulse Ox O2 Delivery O2 Flow Rate FiO2 05/22/17 08:00 Room Air 05/22/17 07:22 36.6 81 18 150/70 (96) 96 Room Air 05/22/17 00:44 36.7 92 20 150/65 (93) 94 Room Air 05/22/17 00:00 Room Air 05/21/17 19:11 Room Air 05/21/17 16:48 36.6 84 16 132/66 (88) 97 Room Air General Appearance: WD/WN, no apparent distress Eyes: normal inspection, PERRL, EOMI Neck: supple, no JVD, trachea midline Respiratory/Chest: no respiratory distress, no accessory muscle use Abdomen: non tender, soft Extremities: normal inspection, no pedal edema, no calf tenderness Neurologic/Psych: alert, normal mood/affect, oriented x 3 Skin: normal color, no jaundice, no rash Laboratory Results Last 24 Hours Test 05/21/17 16:38 05/21/17 19:59 05/22/17 07:28 05/22/17 08:10 Bedside Glucose 240 mg/dl 337 mg/dl 187 mg/dl White Blood Count 6.98 K/uL Red Blood Count 3.11 M/uL Hemoglobin 9.0 g/dL Hematocrit 29.0 % Mean Corpuscular Volume 93.2 fL Mean Corpuscular Hemoglobin 28.9 pg Mean Corpuscular Hemoglobin Concent 31.0 g/dl Platelet Count 272 K/uL Mean Platelet Volume 9.6 fL Neutrophils (%) (Auto) 70.0 % Lymphocytes (%) (Auto) 16.8 % Monocytes (%) (Auto) 9.7 % Eosinophils (%) (Auto) 2.6 % Basophils (%) (Auto) 0.6 % Neutrophils # (Auto) 4.89 K/uL Lymphocytes # (Auto) 1.17 K/uL Monocytes # (Auto) 0.68 K/uL Eosinophils # (Auto) 0.18 K/uL Basophils # (Auto) 0.04 K/uL RDW Standard Deviation 54.2 fL RDW Coefficient of Variation 16.0 % Immature Granulocyte % (Auto) 0.3 % Immature Granulocyte # (Auto) 0.02 K/uL Sodium Level 138 mmol/L Potassium Level 4.3 mmol/L Chloride Level 110 mmol/L Carbon Dioxide Level 21 mmol/L Anion Gap 7.0 mmol/L Blood Urea Nitrogen 19 mg/dl Creatinine 1.20 mg/dl Est Creatinine Clear Calc Drug Dose 30.1 ml/min Estimated GFR () 49.1 Estimated GFR (Non- 42.4 BUN/Creatinine Ratio 15.8 Random Glucose 204 mg/dl Estimated Average Glucose 212 mg/dl Hemoglobin A1c 9.0 % Calcium Level 7.2 mg/dl Test 05/22/17 11:16 05/22/17 11:26 Bedside Glucose 197 mg/dl Total Bilirubin 0.3 mg/dl Direct Bilirubin 0.2 mg/dl Aspartate Amino Transf (AST/SGOT) 34 U/L Alanine Aminotransferase (ALT/SGPT) 43 U/L Alkaline Phosphatase 434 U/L Total Protein 6.1 gm/dl Albumin 2.2 gm/dl Impression Patient is a 81 year old female w hx of metastatic RCC to bone, lungs, liver, currently admitted for UTI. GI consulted to eval for possible cholangitis causing recent sepsis and to r/o biliary stent occlusion. Bare metal stent was placed in 2014 for her cholangitis and biliary stricture episode. Most recent u/ s and CT abd/pelvis imaging studies reviewed. LFTs normal except for elevated alk phos (she does have liver mets disease). She is afebrile, denies any n/v, abd pain, jaundice. Less likely she has another cholangitis episode. However will obtain repeat CT scan to r/o biliary stent occlusion/partial occlusion from tumor invasion. Plan - Obtain CT abd only without PO or IV contrast. Will review results and give further recs. If she has and occluded stent we may need to do a repeat ERCP for further stenting. ATTESTATION: I have performed a history and physical examination of thia patient and reviewed the electronic record. Specifically, on review of CT shows patent SEMS without significant change in intrahepatic ducts since prior study in 01/2017. At this time there is no indication for a repeat ERCP. I have discussed the case with SY Mason. The above note reflects my findings, conclusions , and recommendations. Magdiel Tsang MD
--- NOTE | 2017-05-22 14:03 | DIAGNOSTIC IMAGING REPORT ---
ABDOMEN CT WITHOUT CONTRAST CT DOSE: 326.55 mGy.cm HISTORY: ONLY abd CT no need for pelvis; eval biliary stent mass invasion TECHNIQUE: Multiaxial CT images of the abdomen and pelvis were performed without contrast. A dose lowering technique was utilized adhering to the principles of ALARA. COMPARISON STUDY: Abdomen and pelvis CT 02/12/2017. FINDINGS: Small bilateral pleural effusions, unchanged. There is also a small pericardial effusion which is developed. There is a 2.3 cm nodule within the base of the left lower lobe. This may have been obscured by the atelectasis on the prior study. Left basilar consolidation has slightly improved. The large right iliac bone destructive lesion with a pathologic fracture is not significantly changed. This is only partially visualized on this study. Destructive mass within the left anterior seventh through ninth ribs remains unchanged. Multiple hepatic masses are not significantly changed in size. Persistent pneumobilia, unchanged. Metallic common bile duct stent is again noted. This contains a small amount of soft tissue/fluid within the lumen of the stent. However, the stent appears to be widely patent and is primarily filled with gas. Cholelithiasis. The left kidney is surgically absent. The unenhanced spleen is unremarkable. There is no IVC filter present. Normal right kidney. Pancreas is not well visualized on this noncontrast study but appears to contain multiple masses. Dominant lesion at the pancreatic head persists. There is obliteration of the normal fat plane between the suspected pancreatic mass and IVC. This is also unchanged. IMPRESSION: 1. Overall, no significant change compared to the prior study with extensive metastatic disease as described above. 2. There is again noted a metallic common bile duct stent. This contains a small amount of fluid/soft tissue. However, the stent remains patent. There is persistent pneumobilia, unchanged. 3. Small bilateral pleural effusions and a small pericardial effusion. 4. A 2.3 cm nodule within the base of the left lower lobe which likely represents metastatic disease. This was not well visualized on the prior study likely due to the surrounding atelectasis. Electronically signed by: Donovan Pan M.D. 05/22/2017 2:01 PM Dictated Date/Time: 05/22/2017 1:44 PM
[2017-05-22 15:47] VITALS: BP 160/70; PULSE 82; TEMP 36.6; O2SAT 98
[2017-05-22 16:00] VITALS: O2SAT 96
[2017-05-22] MEDS: CEFTRIAXONE SOD INJ 1 GM in DEXTROSE 5% ADD-VANTAGE 50ML 50 ML IV SCH (23:05)
[2017-05-23 00:12] VITALS: BP 161/69; PULSE 82; TEMP 36.6; O2SAT 97
[2017-05-23] MEDS ORDERED: FENTANYL PATCH REMOVE & WASTE SCH (05:59)
[2017-05-23] MEDS ORDERED: FENTANYL 50 MCG/HR TDSY TD SCH (06:00)
[2017-05-23] MEDS: HEPARIN SOD 5000 UNIT/0.5 ML CARP SQ SCH ×2 (06:00→14:00)
[2017-05-23] MEDS: SODIUM CHLORIDE 0.9% 1000ML 1,000 ML IV SCH ×2 (06:14→16:15)
[2017-05-23] MEDS: LEVOTHYROXINE 200 MCG TAB PO SCH (06:15)
[2017-05-23] MEDS: INSULIN ASPART 100 UNITS/ML 3 ML PEN SC SCH ×2 (06:30→12:53)
[2017-05-23 08:00] VITALS: BP 157/71; PULSE 85; TEMP 36.8; O2SAT 96
[2017-05-23] MEDS: INSULIN GLARGINE SOLOSTAR 100 UNITS/ML 3 ML PEN SC SCH (08:00)
[2017-05-23] MEDS: CHECK FENTANYL PATCH PLACEMENT SCH ×2 (08:00→16:30)
[2017-05-23] MEDS: LACTOBACILLUS ACIDOPHILUS (FLORANEX) TAB PO SCH ×3 (08:00→16:29)
[2017-05-23] MEDS: RASPBERRY SYRUP 5 ML UDP PO SCH ×3 (08:00→16:27)
[2017-05-23] MEDS: VANCOMYCIN HCL 250 MG/5 ML SOLN PO SCH ×3 (08:08→16:27)
[2017-05-23 08:43] LABS: BASO % 0.5 %; BASO ABS # 0.04 K/uL (0-0.2); EOS % 1.2 %; HEMATOCRIT 31.9 % (37-47); IG% 0.4 %; LYMPH % 9.9 %; LYMPH ABS # 0.73 K/uL (1.2-3.4); MEAN CORPUSCULAR HEMOGLOBIN 29.4 pg (25-34); MEAN PLATELET VOLUME 9.7 fL (7.4-10.4); MONO % 9.7 %; NEUT % 78.3 %; PLATELET COUNT 297 K/uL (130-400); RED BLOOD COUNT 3.43 M/uL (4.2-5.4); WHITE BLOOD COUNT 7.35 K/uL (4.8-10.8)
[2017-05-23 08:45] LABS: COMPLETE YES; MEAN CORPUSCULAR HGB CONC 31.7 g/dl (32-36)
[2017-05-23 09:04] LABS: BUN/CREATININE RATIO 10.1 (10-20); CALCIUM 7.5 mg/dl (8.5-10.1); CREATININE 1.2 mg/dl (0.60-1.20)
[2017-05-23 09:05] LABS: ALB/GLOB RATIO 0.6 (0.9-2)
[2017-05-23] MEDS: FAMOTIDINE IV INJ 20 MG in DEXTROSE 5% 100ML 100 ML IV SCH (11:26)
--- NOTE | 2017-05-23 12:39 | Pharmacy Progress Note ---
Glycemic Control Progress Note Date of Service May 23, 2017. Scope Glycemic Pharmacist consulted for glycemic control to write orders per [facility] inpatient glycemic control protocol. Objective Accuchecks BSG (last 24hrs): Test 05/22/17 16:18 05/22/17 20:48 05/23/17 07:13 05/23/17 07:35 Bedside Glucose 223 mg/dl (70-90) 172 mg/dl (70-90) 58 mg/dl (70-90) 57 mg/dl (70-90) Test 05/23/17 08:04 05/23/17 08:32 05/23/17 11:39 Bedside Glucose 101 mg/dl (70-90) 172 mg/dl (70-90) Random Glucose 133 mg/dl (70-99) HbA1c: Test 05/22/17 07:28 Hemoglobin A1c 9.0 % (4.5-5.6) H Recent Pertinent Medications The patient is currently receiving: * Basal insulin: Lantus 10 units every 12 hours * Correctional Insulin: Novolog Correction per scale ACHS Goal Range: Low 110 mg/dL - High 140 mg/dL Correction Factor: 25 mg/dL/unit * Prandial insulin: Per carb ratio of 1 unit per 9 grams CHO consumed Outpatient Anti-Diabetic Meds Levemir 10 units SQ BID Assessment & Plan ASSESSMENT: * See progress note from 05/22/17 for more background info, in short: Pt admitted with N/V and possible UTI. Experiencing hypoglycemia this AM, requiring lower dose of basal insulin. * Patient is currently receiving an average of 37 units of insulin per day * 20 units of basal insulin * 17 units of prandial/correctional insulin * BSGs ranging 57 - 223 mg/dl over the past 24hrs * Changes needed to insulin regimen: * AM Fasting BSG = 57 mg/dl. This is in below goal range for patient based on inpatient targets and co-morbidities. Therefore Basal insulin needs to be decreased, will also loosen CF and CR at this time slightly to prevent further hypoglycemia. PLAN FOR INPATIENT GLYCEMIC CONTROL: * HOLD Lantus this AM then * Decrease Lantus to 8 units SQ BID * Loosen correction factor to 30 mg/dl/unit * Loosen carb ratio to 1 unit per 10 grams CHO consumed * Continuing goal range of Low 110 mg/dL - High 140 mg/dL * Please note that the plan above was derived based on current level of insulin resistance and hospital stress. These recommendations are appropriate for inpatient admission only. Plan of care upon discharge will need to be reassessed to avoid potential outpatient hypo/hyperglycemia. Thank you.
--- NOTE | 2017-05-23 12:47 | Family Medicine Progress Note ---
Progress Note Date of Service May 23, 2017.
[2017-05-23] MEDS ORDERED: CEFD1CAP14 PO (14:10)
--- NOTE | 2017-05-23 14:24 | Discharge Instructions ---
Discharge Instructions Date of Service May 23, 2017. Admission Reason for Admission: UTI Discharge Discharge Diagnosis / Problem: Fever, UTI Discharge Goals Goal(s): Decrease discomfort, Improve function, Increase independence, Improve disease control, Improve nutritional status, Learn about illness, Diagnostic testing, Therapeutic intervention, Screening, Prevent Disease Progression, Specific goals Activity Recommendations Activity Limitations: resume your previous activity . Instructions / Follow-Up Instructions / Follow-Up -Please follow up with Dr. Dunn within 1-2 wks -If you experience worsening fever, nausea, abdominal pain, flank pain, back pain, Please contact clinic or if concerned go to Emergency Dept -Please take medication as prescribed Current Hospital Diet Patient's current hospital diet: Diabetes Type 2 Diet Discharge Diet Recommended Diet: Regular Diet Pending Studies Studies pending at discharge: no Laboratory Results Hemoglobin A1c Test 05/22/17 07:28 Range/Units Estimated Average Glucose 212 mg/dl Hemoglobin A1c 9.0 H 4.5-5.6 % Medical Emergencies . Who to Call and When: Medical Emergencies: If at any time you feel your situation is an emergency, please call 911 immediately. . Non-Emergent Contact Non-Emergency issues call your: Primary Care Provider Call Non-Emergent contact if: you have a fever, your pain is not controlled, your pain is worsening, your pain is unusual for you, your pain is concerning you, you have any medication questions . . "Provider Documentation" section prepared by Fred Nelson. . VTE Core Measure Inpt VTE Proph given/why not?: Unfractionated heparin SQ
[2017-05-23] MEDS ORDERED: VANC1CAP19 PO (14:27)
[2017-05-23 14:30] VITALS: BP 157/71; PULSE 85; TEMP 36.8; O2SAT 96
[2017-05-23 16:23] VITALS: BP 160/67; PULSE 85; TEMP 36.7; O2SAT 98
[2017-05-23] MEDS ORDERED: INSULIN GLARGINE SOLOSTAR 100 UNITS/ML 3 ML PEN SC SCH (20:00)
--- NOTE | 2017-05-24 07:24 | Discharge Summary ---
Discharge Summary Date of Service May 23, 2017. (Fred Nelson MD) Discharge Summary Admission Date: May 21, 2017 at 00:45 Discharge Date: May 23, 2017 Discharge Disposition: Home Principal Diagnosis: UTI, PIERCE on CKD Problems/Secondary Diagnoses: Elevated LFTS Immunizations: Have You Had Influenza Vaccine: Yes History of Tetanus Vaccine?: Unknown History of Pneumococcal: Yes History of Hepatitis B Vaccine: No Procedures: CHEST ONE VIEW PORTABLE HISTORY: Sepsis COMPARISON: Chest 03/21/2017. FINDINGS: No pneumothorax. The heart remains mildly enlarged. Left basilar densities. Focal thickening within the left lung apex is again noted. There is associated destruction of the left first rib. The right lung remains clear. A common bile duct stent is noted. There is an IVC filter. There are surgical clips within abdomen. Pathologic fracture at the proximal left humerus remains displaced. IMPRESSION: 1. Patchy left basilar airspace opacities. This could represent atelectasis or pneumonia. 2. No change in the destructive left apical lesion and pathologic fracture at the left humeral neck. Abdominal u/S IMPRESSION: 1. The liver is enlarged and heterogeneous. Numerous hepatic lesions are identified suggesting multifocal hepatic metastatic disease. 2. The common bile duct is not well assessed and the common bile duct stent was not visualized. The pancreas was also not seen. 3. Cholelithiasis without clear sonographic evidence of acute cholecystitis. The gallbladder was suboptimally assessed. 4. Mild intrahepatic biliary ductal dilatation and pneumobilia are noted. ABdominal CT IMPRESSION: 1. Overall, no significant change compared to the prior study with extensive metastatic disease as described above. 2. There is again noted a metallic common bile duct stent. This contains a small amount of fluid/soft tissue. However, the stent remains patent. There is persistent pneumobilia, unchanged. 3. Small bilateral pleural effusions and a small pericardial effusion. 4. A 2.3 cm nodule within the base of the left lower lobe which likely represents metastatic disease. This was not well visualized on the prior study likely due to the surrounding atelectasis. (Fred Nelson MD) Medication Reconciliation New Medications: Cefdinir (Omnicef) 300 Mg Cap 300 MG PO Q12H for 5 Days, #10 CAP Changed Medications: Vancomycin Hcl (Vancocin Hcl) 125 Mg Cap 125 MG PO DAILY for 14 Days, #21 CAP 0 Refills (Changed from: 3; Refills: ; BEGIN 05/21/17 X 3 DAYS (TO COMPLETE 40 + DAY REGIMEN)) Please Take 125 mg 2 x/day for 1 week, followed by 125 mg 1x/day for 1 week Continued Medications: Acetaminophen Tab (Tylenol) 325 Mg Tab 650 MG PO Q4 PRN for Pain ALTERNATES DOSES WITH NORCO Denosumab (Xgeva) 120 Mg/1.7 Ml Inj 1 DOSE SQ MONTHLY Fentanyl (Duragesic) 50 Mcg Tdsy 50 MCG TD CQ72HR, PATCH Furosemide (Lasix) 20 Mg Tab 20 MG PO DAILY PRN for EDEMA, TAB Hydrocodone/Acetaminophen 7.5MG/325MG ([place] 7.5MG/325MG) Tab 1-2 TAB PO Q4 PRN for Pain, TAB PRN PAIN Insulin Detemir (Levemir Flextouch) 100 Unit/Ml Inj 10 UNITS SQ AMPM Lactobacillus-Inulin (Culturelle) 1 Cap Cap 1 CAP PO DAILY Levothyroxine Sodium (Levothyroxine Sodium) 200 Mcg Tab 200 MCG PO DAILY Lisinopril (Lisinopril) 10 Mg Tab 10 MG PO DAILY Nivolumab (Opdivo) Unknown Strength Inj 1 DOSE IV [id number] Ondansetron Hcl (Zofran) 8 Mg Tab 8 MG PO Q8 PRN for Nausea Pantoprazole (Protonix) 40 Mg Tab 40 MG PO QAM, #30 TAB Polyethylene Glycol 3350 (Miralax) 1 Pow Pow 17 GM PO DAILY PRN for Constipation Senna (Senokot) 8.6 Mg Tab 1 TAB PO DAILY PRN for Constipation, 0 Refills Discharge Exam GENERAL: alert, well appearing, no distress, non-toxic EYE EXAM: normal conjunctiva, PERRL and EOM's grossly intact OROPHARYNX: no exudate, no erythema, lips, buccal mucosa, and tongue normal and mucous membranes are moist NECK: supple, no nuchal rigidity, no adenopathy, non-tender LUNGS: L sided Crackles HEART: no murmurs, S1 normal and S2 normal ABDOMEN: abdomen soft, non-tender, normo-active bowel sounds, no masses, no rebound or guarding. UPPER EXTREMITIES: upper extremities are grossly normal. LOWER EXTREMITIES: No pitting edema. NEURO EXAM: AOx3 cranial nerves II-XII grossly intact, normal speech, (Fred Nelson MD) Review of Systems: Constitutional: No fever Respiratory: No shortness of breath Cardiovascular: No chest pain Abdomen: No pain, No nausea Physical Exam: General Appearance: no apparent distress Respiratory/Chest: lungs clear, no respiratory distress Cardiovascular: regular rate, rhythm Abdomen / GI: normal bowel sounds, non tender, soft Neurologic/Psychiatric: alert, oriented x 3 Skin: warm/dry (Hiwot Zamudio M.D.) Hospital Course H&P The patient presents with malaise, which she reports started this morning. This morning, she had a fever 102.7. She was given a dose Tylenol which helped bring her temperature down to 99. This was followed by nausea and vomiting. She denies having any pain. Her systolic blood pressures also measure this morning at 152, which is reported to be approximately her baseline.however with ongoing nausea, vomiting and poor by mouth intake during the day, the daughters repeated blood pressure this afternoon and come down to 110 systolic. This is of in addition to her missing her lisinopril dose today due to nausea. This evening her temperature was 99.1, prompting daughters to bring to the ED for further evaluation. In general, she has a poor appetite and this is been unchanged today. She has not had complains of chest pain, coughing, shortness of breath, wheezing , palpitations or orthopnea. No diarrhea, or constipation. As background to this patient, was admitted for UTI in 01/2017. She unfortunately developed C.difficile at that time, but did complete treatment. She was discharged home but returned 1 month later for UTI with E.coli and enterococcus bacteremia. She also had persistent C.difficile. She was discharged on Amoxicillin, Keflex and 8 week course of PO Vancomycin. She still has 3 days left of her Vancomycin taper. She has metastatic renal cell carcinoma with history of unilateral nephrectomy. She has been on multiple chemotherapeutic agents. She is currently on Opdivo salvage, her last dose was [address] Conner. Hospital course: Patient arrived to ED afebrile with a mild leukocytosis (WBC ct 12) UA was suspicious for UTI and she was placed on IV Rocephin. LFTS were found to be elevated AST 122 ALT 74 Alk Phos 593. Cr on arrival was 1.7 attributed to prerenal Acute on chronic kidney disease. (Baseline 1.2-1.6)She was treated with IV fluids. Lisinopril was held. CXR showed basilar opacities that were attributed to atelectasis as opposed to Pneumonia. DUring admission. Urine cx was positive for >3 organisms. IV Rocephin was maintained. Abdominal U/S was performed with findings consistent with metastasis to liver. CBD and known biliary stent was not well visualized. GI was consulted. CT Abdomen was performed and it was determined stent was patent and no ERCP was warranted. During admission, she showed clinical resolution of symptoms, Cr improved to baseline and LFTS trended down. There was incidental finding of 2.3 cm nodule within the base of the left lower lobe suspcious for metastatic disease. Following discharge patient was sent home on 5 more days of [facility] with primary care followup. Total Time Spent: Less than 30 minutes This includes examination of the patient, discharge planning, medication reconciliation, and communication with other providers. (Fred Nelson MD) Resident Physician Supervision Note: I was present with Dr. Nelson in bedside. I verified the pizano history and physical, reviewed labs and image studies, discussed the case with the resident and agree with the findings and care plan. Total Time Spent: Greater than 30 minutes (35) (Hiwot Zamudio M.D.) Discharge Instructions Please refer to the electronic Patient Visit Report (Discharge Instructions) for additional information. (Fred Nelson MD) Additional Copies To Kamini Dunn M.D.
== END 2017-05-23 18:00 | disposition home health service (06) | DRG 690 ==
LOC: C.EDB 20:36 → C.MS4W 05-21 00:45 → EDBEDREQ 05-21 01:50 → ENRESERV 05-21 02:55
PROVIDERS: ADMIT Student in an Organized Health Care Education/Training Program; ATTEND Family Medicine
DX: N39.0 Urinary tract infection, site not specified (principal); E87.1 Hypo-osmolality and hyponatremia; C64.9 Malignant neoplasm of unspecified kidney, except renal pelvis; C79.51 Secondary malignant neoplasm of bone; C78.7 Secondary malignant neoplasm of liver and intrahepatic bile duct; J98.11 Atelectasis; E11.9 Type 2 diabetes mellitus without complications; N18.9 Chronic kidney disease, unspecified; I12.9 Hypertensive chronic kidney disease with stage 1 through stage 4 chronic kidney disease, or unspecified chronic kidney disease; N28.9 Disorder of kidney and ureter, unspecified; Z51.81 Encounter for therapeutic drug level monitoring; Z79.899 Other long term (current) drug therapy; Z79.4 Long term (current) use of insulin; Z79.891 Long term (current) use of opiate analgesic; Z86.718 Personal history of other venous thrombosis and embolism; Z66 Do not resuscitate; Z90.5 Acquired absence of kidney; Z86.19 Personal history of other infectious and parasitic diseases

== ENCOUNTER → 2017-09-09 | Outpatient (CLI) | payer OTHER, MEDICARE ==
[~2017-09-09] MED LIST changes: -AMOX1TAB43 PO; -DRGTP50 TD; -ERGO1CAP41 PO; +FNTTP50 TD; -KFL250 PO; -LVMIPEN SQ; -MRLP17X PO; -NYSS5 PO; +OPTIRAY 320 IV PRN; +PANT40TA PO; +POLY335019 PO; -RCL25 PO; +VANC1CAP19 PO; -VNCS125 PO; -[UNRECOGNIZED DRUG - OTHER] IV.
--- NOTE | 2017-09-09 12:35 | DIAGNOSTIC IMAGING REPORT ---
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 A dose lowering technique was utilized adhering to the principles of ALARA. COMPARISON: 02/12/2017 FINDINGS: Moderately improved bilateral pleural effusions. 2.3 cm nodular density left lung base which may have been pre-existing and obscured by the effusion which has resolved. Expansile lesion of the left chest wall which is expanding and joint destructive change of the second rib. This is in general is stable compared to the prior exam. The destructive lesion involving the left humeral head and neck is also similar given slightly different scan parameters on the current study. The right high axillary and lateral adenopathy in relation of the right shoulder is considered generally stable. Limited evaluation of the upper abdomen shows evidence for diffuse metastatic disease throughout the liver. Stent involving the common bile duct is similar in location. Patient is status post left diaphragmatic. Right kidney enhances to a somewhat heterogeneous level. Appears be a gallstone the region of the gallbladder neck similar compared to the prior study. IMPRESSION: 1. Slight improvement in aeration of the lung bases with the pleural effusions nearly completely resolved. 2.. Diffuse liver and upper abdominal metastatic disease similar as compared to the prior study. 3. Bony destructive lesions primarily of the left shoulder and left second rib are similar as compared to the prior study. 3. Unchanged right shoulder exam. Scapular/upper right axillary adenopathy. 4. In general, no major progression of the patient's diffuse disease as compared to the prior study. The above report was generated using voice recognition software. It may contain grammatical, syntax or spelling errors. Electronically signed by: Gordon Marvin M.D. 09/09/2017 12:34 PM Dictated Date/Time: 09/09/2017 12:26 PM
--- NOTE | 2017-09-09 13:00 | DIAGNOSTIC IMAGING REPORT ---
ABD/PELVIS IV AND ORAL CONT CLINICAL HISTORY: 81 years-old Female presenting with L RENAL CELL CA W/LIVER METS,MALIG NEOPL BONE. TECHNIQUE: Multidetector CT of the abdomen and pelvis was performed after the administration of oral and intravenous contrast. IV contrast: 65 mL of Optiray 320. A dose lowering technique was used consistent with the principles of ALARA (as low as reasonably achievable). COMPARISON: 05/22/2017. CT DOSE (mGy.cm): The estimated cumulative dose is 557.87 mGy.cm. FINDINGS: Distribution Technician topogram: Surgical clips noted in the left periaortic region. Metallic common bile duct stent. IVC filter. Extensive changes of the right ilium. Lung bases: Persistent round solid 2.5 cm lesion at the posterior medial left lower lobe, previously 2.3 cm. Persistent peripheral bandlike opacity more laterally in the left lower lobe likely atelectasis or scarring. No new pulmonary nodule at the lung bases. Multichamber enlargement of the heart. Enlargement of the main pulmonary artery measuring 3.5 cm in transverse dimension suggest pulmonary hypertension. Coronary artery calcification. Aortic valve calcification. Persistent trace pericardial effusion. Interval resolution of pleural effusions. Liver: The liver is enlarged by multiple hypodense lesions. Direct comparison to the prior exam is difficult due to the current presence of intravenous contrast and a noncontrast examination on prior exam. The lesions are slightly less apparent on the current exam likely due to enhancement. An index lesion at the right hepatic dome measures 4.4 cm in diameter, previously 3.7 cm (series 6 image 36). A second index lesion in the left hepatic lobe measures 4.1 cm, previously 3.8 cm (series 6 image 13). A third index lesion at the inferior right hepatic lobe measures 3.4 cm in diameter, previously 3.1 cm (series 6 image 138). Hepatic veins have not yet opacified. Portal vein patent. Biliary: The metallic common bile duct stent remains in place with expected pneumobilia. Filling defect within the distal portion of the stent is unchanged from prior and may represent debris or neoplastic soft tissue. The gallbladder appears contracted and contains a hyperdense calculus. Pancreas: The pancreatic parenchyma is expanded and has a multilobular configuration was prominently in the pancreatic head likely due to the presence of underlying lesions. Spleen: Normal. Adrenal glands: The left adrenal gland is likely absent. The right adrenal gland is normal. Kidneys and ureters: The left kidney is surgically absent. No suspicious soft tissue in the operative bed. The right kidney is normal in appearance. No hydronephrosis. The right ureter is poorly delineated secondary to the paucity of intra-abdominal fat. Bladder: Incompletely evaluated secondary to underdistention. Pelvic organs: Uterus and ovaries normal. Bowel: Mild wall thickening of the rectum with mild mesorectal fat infiltration. Mild wall thickening of the sigmoid colon also noted with associated diverticulosis. Mild wall thickening of the ascending colon and cecum also suggested. No bowel obstruction. The appendix is not well visualized if present. Peritoneal cavity: No free fluid or intraperitoneal gas. Mild infiltration of the extraperitoneal space in the pelvis. Lymph nodes: Few prominent portacaval lymph nodes, which demonstrate enhancement and measure up to 9 mm in the short axis. These are better demonstrated on the current exam secondary to the presence of contrast. Vasculature: Atherosclerosis of the normal caliber abdominal aorta. An IVC filter is in place. The IVC is grossly patent allowing for the suboptimal opacification of vascular structures. Abdominal wall: Anasarca. Musculoskeletal: Redemonstration of the destructive osseous lesion in the right ilium. Pathologic fractures of the right ilium also noted. These are unchanged from prior. Mixed sclerotic and lytic changes at the pubic symphysis also noted. Degenerative changes of the spine. Previously noted permeative lesions in anterior left ribs again noted. IMPRESSION: 1. Slight interval increase in size of hepatic lesions concerning for progression of disease. Redemonstration of suspected pancreatic lesions, thought also represent metastatic disease. Interval increase in size of the left lower lobe lesion, also likely representing metastatic disease. Redemonstration of destructive osseous metastatic disease. 2. Metallic common bile duct stent with persistent debris or soft tissue in the distal portion. Expected pneumobilia. 3. Apparent colonic and rectal wall thickening could represent proctocolitis. This may be infectious or secondary to medications among other etiologies. Electronically signed by: Boni Szymanski M.D. 09/09/2017 12:58 PM Dictated Date/Time: 09/09/2017 12:41 PM
== END | disposition home or self-care (01) ==
LOC: C.CTS 11:28
PROVIDERS: ATTEND Internal Medicine Hematology
DX: C64.2 Malignant neoplasm of left kidney, except renal pelvis (principal); C78.7 Secondary malignant neoplasm of liver and intrahepatic bile duct; C79.51 Secondary malignant neoplasm of bone; Z96.89 Presence of other specified functional implants

== ENCOUNTER 2017-09-17 13:51 | Inpatient (IN) | payer OTHER, MEDICARE ==
[~2017-09-17] VITALS: Ht 152.4 cm; Wt 63.9 kg
[~2017-09-17 13:51] MED LIST changes: -OPTIRAY 320 IV PRN
[2017-09-17] MEDS ORDERED: SODIUM CHLORIDE 0.9% 1000ML 1,000 ML IV STA (14:28)
--- NOTE | 2017-09-17 14:28 | EMERGENCY ROOM VISIT NOTE ---
History Report prepared by Ruiz: Tito Law Under the Supervision of: Dr. Med Madrigal D.O. First contact with patient: 14:06 Chief Complaint: ILLNESS Stated Complaint: FEVER,CHILLS,LOW BP,NAUSEA History of Present Illness The patient is a 81 year old female who presents to the Emergency Room with complaints of not feeling well and concern for renal failure. The patient has a history of UTIs. The patient voided this morning with dark urine. The patient had a fever of 103 F last night with improvement after taking Tylenol per her nurse. The patient has left sided abdominal pain. The patient has not had a bowel movement for 3 days ago. Denies cough, runny nose, dysuria, and open wounds. Of note, the patient has one kidney due to renal cell cancer and history of bilateral DVTs. Of note, her lower extremity swelling is unchanged from baseline. Source of History: patient, family, jail notes Onset: prior to arrival Position: abdomen (left sided pain) Timing: constant Associated Symptoms: + fevers (103 F), No cough, No urinary symptoms Note: Additional Symptoms: Denies open wounds Denies runny nose No bowel movement in 3 days Review of Systems See HPI for pertinent positives & negatives. A total of 10 systems reviewed and were otherwise negative. 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 (8) Secondary hyperparathyroidism (9) Sepsis Family History Patient reports no known family medical history. Social History Smoking Status: Never Smoker Alcohol Use: none Drug Use: none Marital Status: Housing Status: lives with family Occupation Status: retired Current/Historical Medications Scheduled Calcium Carbonate (Calcium), 500 MG PO DAILY Cyanocobalamin (Cyanocobalamin), 1 TAB PO DAILY Denosumab (Xgeva), 1 DOSE SQ MONTHLY Fentanyl (Duragesic), 50 MCG TD [id number] Insulin Detemir (Levemir Flextouch), 10 UNITS SQ AMPM Lactobacillus-Inulin (Culturelle), 1 CAP PO DAILY Levothyroxine Sodium (Levothyroxine Sodium), 200 MCG PO DAILY Lisinopril (Lisinopril), 10 MG PO DAILY Nivolumab (Opdivo), 1 DOSE IV [id number] Scheduled PRN Acetaminophen Tab (Tylenol), 650 MG PO Q4 PRN for Pain Furosemide (Lasix), 20 MG PO [id number] PRN for EDEMA Hydrocodone/Acetaminophen 7.5MG/325MG ([place] 7.5MG/325MG), 1-2 TAB PO Q4 PRN for Pain Ondansetron Hcl (Zofran), 8 MG PO Q8 PRN for Nausea Pantoprazole (Protonix), 40 MG PO QAM PRN for Indigestion Polyethylene Glycol 3350 (Miralax), 17 GM PO DAILY PRN for Constipation Senna (Senokot), 1 TAB PO DAILY PRN for Constipation Allergies Coded Allergies: Adhesives (Verified Allergy, Mild, LOCAL SKIN IRRITATION, BLISTERS, ) Uncoded Allergies: ANTICOAGULANTS (Adverse Reaction, Intermediate, INCREASED INR -PER FAMILY, 05/20/17) Physical Exam Vital Signs Date Time Temp Pulse Resp B/P (MAP) Pulse Ox O2 Delivery O2 Flow Rate FiO2 09/17/17 16:51 69 15 09/17/17 16:46 73 17 09/17/17 16:41 69 14 09/17/17 16:36 70 15 09/17/17 16:31 70 14 09/17/17 16:26 71 14 09/17/17 16:21 69 15 09/17/17 16:16 70 14 09/17/17 16:11 67 19 09/17/17 16:06 72 15 09/17/17 16:01 71 15 09/17/17 15:56 72 15 09/17/17 15:31 73 12 09/17/17 15:26 75 15 09/17/17 15:21 72 14 09/17/17 15:16 75 16 09/17/17 15:11 76 14 09/17/17 15:06 81 19 09/17/17 15:01 79 20 09/17/17 14:56 74 15 98 09/17/17 14:51 75 31 97 09/17/17 14:46 76 14 96 09/17/17 14:41 76 16 97 09/17/17 14:36 76 19 09/17/17 14:31 76 13 09/17/17 14:29 73 09/17/17 14:01 36.6 79 20 104/57 99 Physical Exam GENERAL: Sitting up in bed, alert, ill appearing, malnourished, no distress, non -toxic, febrile EYE EXAM: normal conjunctiva. OROPHARYNX: no exudate, no erythema, lips, buccal mucosa, and tongue normal and mucous membranes are moist NECK: supple, no nuchal rigidity, no adenopathy, non-tender LUNGS: Clear to auscultation. Normal chest wall mechanics HEART: no murmurs, S1 normal and S2 normal ABDOMEN: abdomen soft, non-tender, normo-active bowel sounds, no masses, no rebound or guarding. BACK: Back is symmetrical on inspection and there is no deformity, no midline tenderness, no CVA tenderness. SKIN: no rashes and no bruising UPPER EXTREMITIES: upper extremities are grossly normal. LOWER EXTREMITIES: No pitting edema. NEURO EXAM: Normal sensorium, cranial nerves II-XII grossly intact, normal speech, no gross weakness of arms, no gross weakness of legs. Gross sensation intact. Medical Decision & Procedures ER Provider Diagnostic Interpretation: Radiology results as stated below per my review and the radiologist's interpretation: CT OF THE ABDOMEN AND PELVIS WITHOUT CONTRAST CLINICAL HISTORY: Left sided abdominal pain, fever, chills and hypotension. Metastatic renal cell carcinoma. COMPARISON STUDY: CT of the abdomen and pelvis September 09, 2017. TECHNIQUE: Axial images of the abdomen and pelvis were obtained without IV contrast. Images were reviewed in the axial, sagittal, and coronal planes. A dose lowering technique was utilized adhering to the principles of ALARA. FINDINGS: Visualized portions of the lower chest demonstrate a stable 2.3 cm left lower lobe pulmonary nodule which is suggestive of a metastasis. There are trace bilateral pleural effusions with associated subpleural opacities which favor atelectasis. No pneumatosis, free air or portal venous gas is present. Evaluation of the abdomen and pelvis is suboptimal on this unenhanced exam. A common bile duct stent is unchanged in position. Pneumobilia is again noted. Mild biliary ductal dilatation is unchanged. Minimal fluid, debris or soft tissue within the distal aspect of the stent is unchanged since prior CT. Gallstone is noted. Innumerable bilobar hepatic metastases are unchanged. Left kidney is surgically absent. Multiple pancreatic/peripancreatic masses are similar to prior exam. An IVC filter is in place. 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 Numerous skeletal metastases are noted, including a right iliac bone lesion with pathologic fracture. There is also a pathologic fracture involving a left anterior inferior rib due to metastasis. Moderate amount of stool within the rectum is noted. There is no evidence for a bowel obstruction. Apparent wall thickening of the cecum and ascending colon is likely due to underdistention. IMPRESSION: 1. No significant change since prior CT of September 09, 2017. Findings consistent with widespread metastatic disease including hepatic and skeletal metastases. Fullness of the pancreatic head which favors metastatic disease or peripancreatic lymphadenopathy. 2. No change in position of the common bile duct stent. Pneumobilia. No change in minimal fluid, debris or soft tissue within the distal aspect of the stent. 3. No bowel obstruction. Moderate amount of stool within the rectum. 4.. Wall thickening of the ascending colon and cecum which is likely due to underdistention however a nonspecific colitis could appear similar. Electronically signed by: Filiberto Powell M.D. 09/17/2017 4:21 PM CHEST ONE VIEW PORTABLE CLINICAL HISTORY: Altered mental status. Metastatic renal cell carcinoma. COMPARISON STUDY: Chest CT September 09, 2017. FINDINGS: Note is again made of a destructive left second rib lesion as well as a pathologic fracture of the left humeral neck, as shown on prior chest CT. The left lower lobe lesion, measuring approximately 2.5 cm cm is again noted. There is moderate cardiomegaly. Left basilar opacity is noted. IMPRESSION: 1. Left basilar opacity which favors atelectasis. 2. Stable cardiomegaly. Pulmonary vascular congestion without overt pulmonary edema. 3. Redemonstration of a left second rib metastasis, pathologic fracture of the left humeral neck and a 2.6 cm left lower lobe metastasis. Electronically signed by: Filiberto Powell M.D. 09/17/2017 4:09 PM Laboratory Results 09/17/17 14:38 Red Blood Count 3.55, Mean Corpuscular Volume 87.6, Mean Corpuscular Hemoglobin 27.9, Mean Corpuscular Hemoglobin Concent 31.8, Mean Platelet Volume 9.7, Neutrophils (%) (Auto) 92.2, Lymphocytes (%) (Auto) 3.1, Monocytes (%) (Auto) 4.3, Eosinophils (%) (Auto) 0.0, Basophils (%) (Auto) 0.1, Neutrophils # (Auto) 21.26, Lymphocytes # (Auto) 0.71, Monocytes # (Auto) 0.98, Eosinophils # (Auto) 0.00, Basophils # (Auto) 0.02 Test 09/17/17 13:00 09/17/17 14:38 Urine Color YELLOW Urine Appearance CLOUDY (CLEAR) Urine pH 5.0 (4.5-7.5) Urine Specific [place] 1.018 (1.000-1.030) Urine Protein TRACE (NEG) Urine Glucose (UA) NEG (NEG) Urine Ketones NEG (NEG) Urine Occult Blood 1+ (NEG) Urine Nitrite NEG (NEG) Urine Bilirubin NEG (NEG) Urine Urobilinogen NEG (NEG) Urine Leukocyte Esterase NEG (NEG) Urine WBC (Auto) 1-5 /hpf (0-5) Urine RBC (Auto) 5-10 /hpf (0-4) Urine Hyaline Casts (Auto) 1-5 /lpf (0-5) Urine Epithelial Cells (Auto) 0-5 /lpf (0-5) Urine Bacteria (Auto) NEG (NEG) White Blood Count 23.04 K/uL (4.8-10.8) Red Blood Count 3.55 M/uL (4.2-5.4) Hemoglobin 9.9 g/dL (12.0-16.0) Hematocrit 31.1 % (37-47) Mean Corpuscular Volume 87.6 fL (80-100) Mean Corpuscular Hemoglobin 27.9 pg (25-34) Mean Corpuscular Hemoglobin Concent 31.8 g/dl (32-36) Platelet Count 269 K/uL (130-400) Mean Platelet Volume 9.7 fL (7.4-10.4) Neutrophils (%) (Auto) 92.2 % Lymphocytes (%) (Auto) 3.1 % Monocytes (%) (Auto) 4.3 % Eosinophils (%) (Auto) 0.0 % Basophils (%) (Auto) 0.1 % Neutrophils # (Auto) 21.26 K/uL (1.4-6.5) Lymphocytes # (Auto) 0.71 K/uL (1.2-3.4) Monocytes # (Auto) 0.98 K/uL (0.11-0.59) Eosinophils # (Auto) 0.00 K/uL (0-0.5) Basophils # (Auto) 0.02 K/uL (0-0.2) RDW Standard Deviation 57.4 fL (36.4-46.3) RDW Coefficient of Variation 17.8 % (11.5-14.5) Immature Granulocyte % (Auto) 0.3 % Immature Granulocyte # (Auto) 0.07 K/uL (0.00-0.02) Dohle Bodies 1+ Schistocytes OCCASIONAL Prothrombin Time 11.9 SECONDS (9.0-12.0) Prothromb Time International Ratio 1.1 (0.9-1.1) Activated Partial Thromboplast Time 29.6 SECONDS (21.0-31.0) Partial Thromboplastin Ratio 1.1 Est Creatinine Clear Calc Drug Dose 24.0 ml/min Total Bilirubin 0.7 mg/dl (0.2-1) Direct Bilirubin 0.4 mg/dl (0-0.2) Aspartate Amino Transf (AST/SGOT) 39 U/L (15-37) Alanine Aminotransferase (ALT/SGPT) 18 U/L (12-78) Alkaline Phosphatase 262 U/L (45-117) Troponin I 0.024 ng/ml (0-0.045) Total Protein 7.1 gm/dl (6.4-8.2) Albumin 2.5 gm/dl (3.4-5.0) Laboratory results per my review. Medications Administered Medications (Trade) Dose Ordered Sig/Suleiman Route Start Time Stop Time Status Last Admin Dose Admin Sodium Chloride 1,000 ml @ 999 mls/hr Q1H1M STAT IV 09/17/17 14:28 09/17/17 15:28 DC 09/17/17 15:05 999 MLS/HR Piperacillin Sod/ Tazobactam Sod (Zosyn Iv) 4.5 gm NOW STAT IV 09/17/17 15:05 09/17/17 15:06 DC 09/17/17 15:53 4.5 GM Levofloxacin (Levaquin / D5W) 500 mg NOW ONCE IV 09/17/17 16:30 09/17/17 16:31 DC 09/17/17 16:59 500 MG ECG Rate (beats per minute): 74 Rhythm: sinus rhythm Findings: other (left axis) ED Course ED COURSE: Vital signs were reviewed and showed febrile The patients medical record was reviewed The above diagnostic studies were performed and reviewed. ED treatments and interventions as stated above. Chloé Malagon: The patient was evaluated in room B12. A complete history and physical examination was performed. 1625: I spoke with Dr. Arboleda. 1648: I updated the patient's family. Upon reevaluation, the patient is comfortable.I discussed my findings with the patient and she understands and agrees with the treatment plan. Based on the patients age, coexisting illnesses, exam and lab findings the decision to treat as an inpatient was made. The patient remained stable while under my care. The patient will be evaluated for further management. Medical Decision Differential diagnosis includes etiologies such as sepsis, UTI, pneumonia, metabolic, electrolyte abnormalities, cardiac sources, intracerebral event, toxicologic, neurologic, as well as others were entertained. Patient is a 81-year-old female brought in by family for fevers of 103 and systolic blood pressures at home 100. She has metastatic cancer. Upon presentation blood work was obtained. Leukocytosis of 23,000. Hemoglobin was stable at 9.9. Sodium slightly low at 128. Bilirubin all LFTs, troponin is fairly unremarkable. Lactic acid was 1.2. Chest x-ray was remarkable for atelectasis versus infiltrate along with CT of the abdomen and pelvis. UA shows no obvious infection. Based on these findings patient was given IV antibiotics for broad-spectrum coverage. Blood cultures were obtained. Patient was given a liter normal saline. Patient was admitted to internal medicine with sepsis secondary to pneumonia. Impression Primary Impression: Leukocytosis Additional Impressions: Systemic inflammatory response syndrome Pneumonia Anemia Scribe Attestation The scribe's documentation has been prepared under my direction and personally reviewed by me in its entirety. I confirm that the note above accurately reflects all work, treatment, procedures, and medical decision making performed by me. Departure Information Referrals Kamini Dunn M.D. (PCP) Patient Instructions My [facility] Problem Qualifiers Primary Impression: Leukocytosis Leukocytosis type: unspecified Qualified Codes: D72.829 - Elevated white blood cell count, unspecified Additional Impressions: Pneumonia Pneumonia type: due to unspecified organism Laterality: unspecified laterality Lung location: unspecified part of lung Qualified Codes: J18.9 - Pneumonia, unspecified organism Anemia Anemia type: unspecified type Qualified Codes: D64.9 - Anemia, unspecified
[2017-09-17 14:59] LABS: HEMATOCRIT 31.1 % (37-47); MEAN CELL VOLUME 87.6 fL (80-100); MEAN CORPUSCULAR HEMOGLOBIN 27.9 pg (25-34); MEAN CORPUSCULAR HGB CONC 31.8 g/dl (32-36); MEAN PLATELET VOLUME 9.7 fL (7.4-10.4); PLATELET COUNT 269 K/uL (130-400); RED BLOOD COUNT 3.55 M/uL (4.2-5.4); WHITE BLOOD COUNT 23.04 K/uL (4.8-10.8)
[2017-09-17] MEDS ORDERED: PIPERACILLIN/TAZOBACTAM 4.5 GM/100ML D5W IV STA (15:05)
[2017-09-17 15:11] LABS: INR 1.1 (0.9-1.1); PARTIAL THROMBOPLASTIN RATIO 1.1; PROTHROMBIN TIME (PATIENT) 11.9 SECONDS (9.0-12.0)
[2017-09-17] MEDS ORDERED: CALC500C73 PO (15:17)
[2017-09-17] MEDS ORDERED: CYANPOW PO (15:17)
[2017-09-17 15:18] LABS: URINE APPEARANCE CLOUDY (CLEAR); URINE BILIRUBIN NEG (NEG); URINE COLOR YELLOW; URINE EPITHELIAL CELL AUTO 0-5 /lpf (0-5); URINE NITRITE NEG (NEG); URINE SPECIFIC GRAVITY 1.018 (1.000-1.030); UROBILINOGEN NEG (NEG); ZZURINE CULT IF INDIC CATH NO
[2017-09-17 15:22] LABS: BUN/CREATININE RATIO 19.4 (10-20); CALCIUM 7.9 mg/dl (8.5-10.1); CREATININE 1.48 mg/dl (0.60-1.20); POTASSIUM 4.4 mmol/L (3.5-5.1)
[2017-09-17 15:25] LABS: MANUAL MICROSCOPIC REQUIRED? NO; REVIEW REQ? NO
[2017-09-17 15:30] LABS: BASO % 0.1 %; BASO ABS # 0.02 K/uL (0-0.2); COMPLETE YES; DOHLE BODIES 1+; IG% 0.3 %; LYMPH % 3.1 %; LYMPH ABS # 0.71 K/uL (1.2-3.4); MONO % 4.3 %; NEUT % 92.2 %; SCHISTOCYTES OCCASIONAL
--- NOTE | 2017-09-17 16:10 | DIAGNOSTIC IMAGING REPORT ---
CHEST ONE VIEW PORTABLE CLINICAL HISTORY: Altered mental status. Metastatic renal cell carcinoma. COMPARISON STUDY: Chest CT September 09, 2017. FINDINGS: Note is again made of a destructive left second rib lesion as well as a pathologic fracture of the left humeral neck, as shown on prior chest CT. The left lower lobe lesion, measuring approximately 2.5 cm cm is again noted. There is moderate cardiomegaly. Left basilar opacity is noted. IMPRESSION: 1. Left basilar opacity which favors atelectasis. 2. Stable cardiomegaly. Pulmonary vascular congestion without overt pulmonary edema. 3. Redemonstration of a left second rib metastasis, pathologic fracture of the left humeral neck and a 2.6 cm left lower lobe metastasis. Electronically signed by: Filiberto Powell M.D. 09/17/2017 4:09 PM Dictated Date/Time: 09/17/2017 4:05 PM
--- NOTE | 2017-09-17 16:22 | DIAGNOSTIC IMAGING REPORT ---
CT OF THE ABDOMEN AND PELVIS WITHOUT CONTRAST CLINICAL HISTORY: Left sided abdominal pain, fever, chills and hypotension. Metastatic renal cell carcinoma. COMPARISON STUDY: CT of the abdomen and pelvis September 09, 2017. TECHNIQUE: Axial images of the abdomen and pelvis were obtained without IV contrast. Images were reviewed in the axial, sagittal, and coronal planes. A dose lowering technique was utilized adhering to the principles of ALARA. FINDINGS: Visualized portions of the lower chest demonstrate a stable 2.3 cm left lower lobe pulmonary nodule which is suggestive of a metastasis. There are trace bilateral pleural effusions with associated subpleural opacities which favor atelectasis. No pneumatosis, free air or portal venous gas is present. Evaluation of the abdomen and pelvis is suboptimal on this unenhanced exam. A common bile duct stent is unchanged in position. Pneumobilia is again noted. Mild biliary ductal dilatation is unchanged. Minimal fluid, debris or soft tissue within the distal aspect of the stent is unchanged since prior CT. Gallstone is noted. Innumerable bilobar hepatic metastases are unchanged. Left kidney is surgically absent. Multiple pancreatic/peripancreatic masses are similar to prior exam. An IVC filter is in place. 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 Numerous skeletal metastases are noted, including a right iliac bone lesion with pathologic fracture. There is also a pathologic fracture involving a left anterior inferior rib due to metastasis. Moderate amount of stool within the rectum is noted. There is no evidence for a bowel obstruction. Apparent wall thickening of the cecum and ascending colon is likely due to underdistention. IMPRESSION: 1. No significant change since prior CT of September 09, 2017. Findings consistent with widespread metastatic disease including hepatic and skeletal metastases. Fullness of the pancreatic head which favors metastatic disease or peripancreatic lymphadenopathy. 2. No change in position of the common bile duct stent. Pneumobilia. No change in minimal fluid, debris or soft tissue within the distal aspect of the stent. 3. No bowel obstruction. Moderate amount of stool within the rectum. 4.. Wall thickening of the ascending colon and cecum which is likely due to underdistention however a nonspecific colitis could appear similar. Electronically signed by: Filiberto Powell M.D. 09/17/2017 4:21 PM Dictated Date/Time: 09/17/2017 4:09 PM
[2017-09-17] MEDS ORDERED: LEVAQUIN 500MG / 100ML D5W IV ONE (16:30)
[2017-09-17] MEDS ORDERED: ACETAMINOPHEN 325 MG TAB PO PRN (17:00)
[2017-09-17] MEDS ORDERED: PANTOprazole SOD 40 MG TAB PO PRN (17:00)
[2017-09-17] MEDS ORDERED: VANCOMYCIN CONSULT ACTIVE PRN (17:30)
[2017-09-17] MEDS ORDERED: DEXTROSE 50% 50 ML SYR IV PRN (17:45)
[2017-09-17] MEDS ORDERED: GLUCOSE 40% GEL 15 GM TUBE PO PRN (17:45)
[2017-09-17] MEDS ORDERED: GLUCAGON FOR INJ 1 MG VIAL SQ PRN (17:45)
[2017-09-17] MEDS ORDERED: GLUCOSE 10 TABS/TUBE PO PRN (17:45)
[2017-09-17] MEDS ORDERED: CEFEPIME CONSULT ACTIVE PRN ×2 (18:00)
[2017-09-17] MEDS ORDERED: LEVOFLOXACIN CONSULT ACTIVE PRN (18:00)
--- NOTE | 2017-09-17 18:17 | History and Physical ---
History & Physical Date & Time of Service: Sep 17, 2017 at 17:44 Chief Complaint: Fever,Chills,Low Bp,Nausea Primary Care Physician: Kamini Dunn M.D. History of Present Illness Source: patient, family, hospital records 81 yo female with well known history of metastatic renal cell cancer who presents today with weakness, fever and poor appetite. The patient lives with her daughters who are at the bedside to help with the recent history. The patient reports feeling left sided abdominal and flank pain starting yesterday. The pain has been off and on. She has experienced a similar pain in the past , seemed to improve with moving her bowels. Her last BM was two nights ago, hard, difficult to pass. In addition to the pain, she developed a fever of 103 F early this morning with rigors and chills. No cough, no dysuria, no nausea/ vomiting and no diarrhea. No rash. The fever broke with Tylenol 1000mg. The patient had poor oral intake today. Family opted to bring her to the hospital because earlier this year she started with a similar presentation, they waited several days and she had a Cr of 4.0 so they wanted to avoid the PIERCE. Currently she is being treated with Opdivo as salvage therapy for her metastatic renal cancer. She has evidence of liver, pancreas, and multiple skeletal lesions. She had a CT of the Abdomen/Pelvis last week to see if she was responding to Opdivo. I reviewed results with patient and her family. The lesions in the liver are slightly larger and there are still lesions in her pancreas. In the ED, her BP was 104/57, HR in the 80's, no fever, respirations normal and nonlabored. WBC high at 23k. Cr at 1.4. Lactic acid 2. CT abdomen/pelvis similar to outpatient study a week prior, no acute changes to suggest infection or inflammation. CXR with left sided atelectasis, no other findings. UA clean. Blood cultures drawn, patient ordered Levaquin and Zosyn and received 1 liter of NSS. BP was 108/48 on repeat. Past Medical/Surgical History DVT with IVC filter placement diabetes type II Left-sided nephrectomy in 1997, IVC filter in 2011, and 2 C-sections. UTI C diff colitis PIERCE Medical Problems: (1) Diabetes Status: Chronic (2) DVT (deep venous thrombosis) Status: Chronic (3) Hypertension Status: Chronic (4) Hypocalcemia Status: Resolved (5) Metastatic renal cell carcinoma to bone Permanent Comment: Status post left nephrectomy 1997 T2 N0 M0 Stage II Bone metastasis right iliac with progressive pain Status post completion of radiation therapy 05/31/2011 received 4950 cGy Destructive lesion left second rib and chest wall Status post completion of radiation therapy 12/03/2014 received 4500 cGy Destructive lesion left proximal humerus Status post completion of radiation therapy to the left humerus 04/19/2016 receive 4000 cGy Status: Chronic (6) Metastatic renal cell carcinoma to lung Status: Chronic (7) Secondary hyperparathyroidism Status: Resolved Family History HTN DM no family h/o cancer Social History Smoking Status: Never Smoker Drug Use: none Marital Status: Occupational Status: retired Immunizations History of Influenza Vaccine: Yes History of Tetanus Vaccine?: Unknown History of Pneumococcal: Yes History of Hepatitis B Vaccine: No Multi-Drug Resistant Organisms History of MDRO: No Allergies Coded Allergies: Adhesives (Verified Allergy, Mild, LOCAL SKIN IRRITATION, BLISTERS, ) Uncoded Allergies: ANTICOAGULANTS (Adverse Reaction, Intermediate, INCREASED INR -PER FAMILY, 05/20/17) Home Medications Scheduled Calcium Carbonate (Calcium), 500 MG PO DAILY Cyanocobalamin (Cyanocobalamin), 1 TAB PO DAILY Denosumab (Xgeva), 1 DOSE SQ MONTHLY Fentanyl (Duragesic), 50 MCG TD [id number] Insulin Detemir (Levemir Flextouch), 10 UNITS SQ AMPM Lactobacillus-Inulin (Culturelle), 1 CAP PO DAILY Levothyroxine Sodium (Levothyroxine Sodium), 200 MCG PO DAILY Lisinopril (Lisinopril), 10 MG PO DAILY Nivolumab (Opdivo), 1 DOSE IV [id number] Scheduled PRN Acetaminophen Tab (Tylenol), 650 MG PO Q4 PRN for Pain Furosemide (Lasix), 20 MG PO 2XWK PRN for EDEMA Hydrocodone/Acetaminophen 7.5MG/325MG ([place] 7.5MG/325MG), 1-2 TAB PO Q4 PRN for Pain Ondansetron Hcl (Zofran), 8 MG PO Q8 PRN for Nausea Pantoprazole (Protonix), 40 MG PO QAM PRN for Indigestion Polyethylene Glycol 3350 (Miralax), 17 GM PO DAILY PRN for Constipation Senna (Senokot), 1 TAB PO DAILY PRN for Constipation Review of Systems Constitutional: + fever, + chills, + sweats, + weakness (a), + fatigue, No weight loss Eyes: No worsening of vision, No eye pain, No redness, No discharge, No diplopia, No problem reported ENT: No hearing loss, No unusual epistaxis, No nasal symptoms, No sore throat, No tinnitus, No dental problems, No trouble swallowing, No problem reported Respiratory: + dyspnea on exertion, No cough, No sputum, No wheezing, No shortness of breath, No dyspnea at rest, No hemoptysis, No problem reported Cardiovascular: No chest pain, No orthopnea, No PND, No edema, No claudication , No palpitations, No problem reported Abdomen: + pain (left upper quadrant and left flank), + constipation (2 days), + problem reported (poor appetite, poor fluid intake), No nausea, No vomiting, No diarrhea, No GI bleeding Musculoskeletal: + joint pain (left shoulder, right hip, left ribs from mets), No muscle pain, No swelling, No calf pain, No problem reported Genitourinary - Female: No dysuria, No urinary frequency, No urinary urgency, No urinary incontinence, No urinary retention, No hematuria Neurologic: + weakness, No memory loss, No paralysis, No numbness/tingling, No vertigo, No balance problems, No problem reported Psychiatric: No depression symptoms, No anhedonism, No anxiety, No insomnia, No substance abuse, No problem reported Endocrine: + fatigue, No excessive thirst, No excessive urination, No problem reported Hematologic / Lymphatic: No abnormal bleeding/bruising, No clotting problems, No swollen lymph nodes, No night sweats, No problem reported Integumentary: No rash, No itch, No new/changing skin lesions, No color change , No bleeding, No problem reported Allergic / Immunologic: No environmental allergies, No seasonal allergies, No pet sensitivities, No food allergies, No hives, No frequent infections, No poor healing, No prolonged convalescence, No problem reported Physical Exam Vital Signs Date Time Temp Pulse Resp B/P (MAP) Pulse Ox O2 Delivery O2 Flow Rate FiO2 09/17/17 16:46 73 17 09/17/17 16:41 69 14 12/19/17 16:36 70 15 09/17/17 16:31 70 14 09/17/17 16:26 71 14 09/17/17 16:21 69 15 09/17/17 16:16 70 14 09/17/17 16:11 67 19 09/17/17 16:06 72 15 09/17/17 16:01 71 15 09/17/17 15:56 72 15 09/17/17 15:31 73 12 09/17/17 15:26 75 15 09/17/17 15:21 72 14 09/17/17 15:16 75 16 09/17/17 15:11 76 14 09/17/17 15:06 81 19 09/17/17 15:01 79 20 09/17/17 14:56 74 15 98 09/17/17 14:51 75 31 97 09/17/17 14:46 76 14 96 09/17/17 14:41 76 16 97 09/17/17 14:36 76 19 09/17/17 14:31 76 13 09/17/17 14:29 73 09/17/17 14:01 36.6 79 20 104/57 99 General Appearance: no apparent distress, + thin Head: normocephalic, atraumatic Eyes: normal inspection, EOMI, sclerae normal ENT: hearing grossly normal, + pertinent finding (dry mucous membranes) Neck: supple, no adenopathy, no JVD, trachea midline Respiratory/Chest: chest non-tender, lungs clear, no respiratory distress, no accessory muscle use, + decreased breath sounds (bases) Cardiovascular: regular rate, rhythm, no gallop, no JVD, no murmur, normal peripheral pulses Abdomen/GI: normal bowel sounds, soft, no organomegaly, + tenderness (mild tenderness in LUQ, no rebound or rigidity) Back: normal inspection, no CVA tenderness, no muscle spasm, normal range of motion Extremities/Musculoskelatal: normal inspection, no calf tenderness, normal capillary refill, normal range of motion, pelvis stable, + pedal edema (1+ pitting bilaterally in legs) Neurologic/Psych: 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 media director II-XII nml as tested, alert, normal reflexes, oriented x 3, + motor weakness (generalized), + depressed affect Skin: normal color, warm/dry, no rash Diagnostics Laboratory Results Results Past 24 Hours Test 09/17/17 13:00 09/17/17 14:38 09/17/17 15:18 Range/Units Urine Color YELLOW Urine Appearance CLOUDY CLEAR Urine pH 5.0 4.5-7.5 Urine Specific [place] 1.018 1.000-1.030 Urine Protein TRACE NEG Urine Glucose (UA) NEG NEG Urine Ketones NEG NEG Urine Occult Blood 1+ NEG Urine Nitrite NEG NEG Urine Bilirubin NEG NEG Urine Urobilinogen NEG NEG Urine Leukocyte Esterase NEG NEG Urine WBC (Auto) 1-5 0-5 /hpf Urine RBC (Auto) 5-10 0-4 /hpf Urine Hyaline Casts (Auto) 1-5 0-5 /lpf Urine Epithelial Cells (Auto) 0-5 0-5 /lpf Urine Bacteria (Auto) NEG NEG White Blood Count 23.04 4.8-10.8 K/uL Red Blood Count 3.55 4.2-5.4 M/uL Hemoglobin 9.9 12.0-16.0 g/dL Hematocrit 31.1 37-47 % Mean Corpuscular Volume 87.6 80-100 fL Mean Corpuscular Hemoglobin 27.9 25-34 pg Mean Corpuscular Hemoglobin Concent 31.8 32-36 g/dl Platelet Count 269 130-400 K/uL Mean Platelet Volume 9.7 7.4-10.4 fL Neutrophils (%) (Auto) 92.2 % Lymphocytes (%) (Auto) 3.1 % Monocytes (%) (Auto) 4.3 % Eosinophils (%) (Auto) 0.0 % Basophils (%) (Auto) 0.1 % Neutrophils # (Auto) 21.26 1.4-6.5 K/uL Lymphocytes # (Auto) 0.71 1.2-3.4 K/uL Monocytes # (Auto) 0.98 0.11-0.59 K/uL Eosinophils # (Auto) 0.00 0-0.5 K/uL Basophils # (Auto) 0.02 0-0.2 K/uL RDW Standard Deviation 57.4 36.4-46.3 fL RDW Coefficient of Variation 17.8 11.5-14.5 % Immature Granulocyte % (Auto) 0.3 % Immature Granulocyte # (Auto) 0.07 0.00-0.02 K/uL Dohle Bodies 1+ Schistocytes OCCASIONAL Prothrombin Time 11.9 9.0-12.0 SECONDS Prothromb Time International Ratio 1.1 0.9-1.1 Activated Partial Thromboplast Time 29.6 21.0-31.0 SECONDS Partial Thromboplastin Ratio 1.1 Sodium Level 128 136-145 mmol/L Potassium Level 4.4 3.5-5.1 mmol/L Chloride Level 98 98-107 mmol/L Carbon Dioxide Level 26 21-32 mmol/L Anion Gap 4.0 3-11 mmol/L Blood Urea Nitrogen 29 7-18 mg/dl Creatinine 1.48 0.60-1.20 mg/dl Est Creatinine Clear Calc Drug Dose 24.0 ml/min Estimated GFR () 38.1 Estimated GFR (Non- 32.9 BUN/Creatinine Ratio 19.4 10-20 Random Glucose 83 70-99 mg/dl Calcium Level 7.9 8.5-10.1 mg/dl Total Bilirubin 0.7 0.2-1 mg/dl Direct Bilirubin 0.4 0-0.2 mg/dl Aspartate Amino Transf (AST/SGOT) 39 15-37 U/L Alanine Aminotransferase (ALT/SGPT) 18 12-78 U/L Alkaline Phosphatase 262 45-117 U/L Troponin I 0.024 0-0.045 ng/ml Total Protein 7.1 6.4-8.2 gm/dl Albumin 2.5 3.4-5.0 gm/dl Lactic Acid Level 1.2 0.4-2.0 mmol/L Microbiology Results 09/17/17 Blood Culture, Received Pending 09/17/17 Blood Culture, Received Pending Diagnostic Radiology CXR: IMPRESSION: 1. Left basilar opacity which favors atelectasis. 2. Stable cardiomegaly. Pulmonary vascular congestion without overt pulmonary edema. 3. Redemonstration of a left second rib metastasis, pathologic fracture of the left humeral neck and a 2.6 cm left lower lobe metastasis. CT ABDOMEN/PELVIS IMPRESSION: 1. No significant change since prior CT of September 09, 2017. Findings consistent with widespread metastatic disease including hepatic and skeletal metastases. Fullness of the pancreatic head which favors metastatic disease or peripancreatic lymphadenopathy. 2. No change in position of the common bile duct stent. Pneumobilia. No change in minimal fluid, debris or soft tissue within the distal aspect of the stent. 3. No bowel obstruction. Moderate amount of stool within the rectum. 4.. Wall thickening of the ascending colon and cecum which is likely due to underdistention however a nonspecific colitis could appear similar. Impression Assessment and Plan 81 yo female with metastatic renal cell cancer who presents with signs of sepsis , possible pneumonia - Sepsis due to pneumonia, left lower lobe significant leukocytosis, fever of 103F at home, rigors and chills CXR favors atelectasis but coupled with the fever and WBC would treat like infiltrate broad spectrum initially, taper quickly given h/o C diff Levaquin, Zosyn, Vancomcyin (check MRSA nasal swab) blood cultures drawn no signs of UTI on UA, no infection in abdomen so it appears like PNA would be most likely sourse repeat LA now NSS at 125cc/hr for one bag then 100cc/hr, follow UO BP 108/48, never truly hypotensive in the ED - Left sided abdominal pain: suspect this is combination of constipation, metastatic disease to bones took Miralax today, no effect will order Miralax BID until she moves bowels, consider enema tomorrow - Chronic pain: Fentanyl patch - Hyponatremia: likely from poor solute intake, will give NSS and follow Na levels - Metastatic renal cell cancer: CT shows slight progression on Opdivo will need to follow up with Dr. Conner - H/o C diff: watch for any signs of diarrhea, has been clear for months - DVT prophylaxis: Lovenox 50 minutes spent on admission Level of Care Telemetry Resuscitation Status DO NOT RESUSCITATE VTE Prophylaxis VTE Risk Assessment Done? Y/N: Yes Risk Level: High Given or contraindicated: Enoxaparin (Lovenox)SQ Additional Copies To Kamini Dunn M.D.
--- NOTE | 2017-09-17 19:29 | Pharmacy Progress Note ---
Pharmacy Abx Initial Consult Date of Service Sep 17, 2017. Pharmacy Dosing Scope Date of Consult: 09/17/17 Consultation requested by: Dr. Arboleda Pharmacy is consulted to initiate Vancomycin/Levaquin/Cefepime IV dosing therapy , order appropriate labs and adjust drug dose/frequency. Subjective The patient is a 81 year old female admitted on Sep 17, 2017 at 16:54 with sepsis secondary to likely pulmonary source. Objective Height (Feet): 5 Height (Inches): 0 Weight (Kilograms): 59.000 Vital Signs (Past 12Hrs) Vital Signs Past 12 Hours Date Time Temp Pulse Resp B/P (MAP) Pulse Ox O2 Delivery O2 Flow Rate FiO2 09/17/17 18:37 36.6 74 18 112/56 96 09/17/17 18:36 75 21 09/17/17 18:34 74 18 112/56 96 Room Air 09/17/17 18:31 78 19 96 09/17/17 18:26 74 18 95 09/17/17 18:21 75 23 96 09/17/17 18:16 74 14 97 09/17/17 18:11 73 18 96 09/17/17 18:06 71 13 97 09/17/17 18:01 73 17 97 09/17/17 17:57 112/56 09/17/17 17:41 75 14 09/17/17 17:36 73 14 09/17/17 17:31 72 17 09/17/17 17:26 75 19 09/17/17 17:21 75 21 09/17/17 17:16 79 23 09/17/17 17:11 77 16 09/17/17 17:06 77 19 108/48 09/17/17 17:01 72 20 09/17/17 16:56 69 14 09/17/17 16:51 69 15 09/17/17 16:46 73 17 09/17/17 16:41 69 14 09/17/17 16:36 70 15 09/17/17 16:31 70 14 09/17/17 16:26 71 14 09/17/17 16:21 69 15 09/17/17 16:16 70 14 09/17/17 16:11 67 19 09/17/17 16:06 72 15 09/17/17 16:01 71 15 09/17/17 15:56 72 15 09/17/17 15:31 73 12 09/17/17 15:26 75 15 09/17/17 15:21 72 14 09/17/17 15:16 75 16 09/17/17 15:11 76 14 09/17/17 15:06 81 19 09/17/17 15:01 79 20 09/17/17 14:56 74 15 98 09/17/17 14:51 75 31 97 09/17/17 14:46 76 14 96 09/17/17 14:41 76 16 97 09/17/17 14:36 76 19 09/17/17 14:31 76 13 09/17/17 14:29 73 09/17/17 14:01 36.6 79 20 104/57 99 Lab Results (24Hrs) Laboratory Tests (24 Hours) Test 09/17/17 14:38 09/17/17 18:00 White Blood Count 23.04 K/uL (4.8-10.8) H Red Blood Count 3.55 M/uL (4.2-5.4) L Hemoglobin 9.9 g/dL (12.0-16.0) L Hematocrit 31.1 % (37-47) L Mean Corpuscular Volume 87.6 fL (80-100) Mean Corpuscular Hemoglobin 27.9 pg (25-34) Mean Corpuscular Hemoglobin Concent 31.8 g/dl (32-36) L Platelet Count 269 K/uL (130-400) Mean Platelet Volume 9.7 fL (7.4-10.4) Neutrophils (%) (Auto) 92.2 % Lymphocytes (%) (Auto) 3.1 % Monocytes (%) (Auto) 4.3 % Eosinophils (%) (Auto) 0.0 % Basophils (%) (Auto) 0.1 % Neutrophils # (Auto) 21.26 K/uL (1.4-6.5) H Lymphocytes # (Auto) 0.71 K/uL (1.2-3.4) L Monocytes # (Auto) 0.98 K/uL (0.11-0.59) H Eosinophils # (Auto) 0.00 K/uL (0-0.5) Basophils # (Auto) 0.02 K/uL (0-0.2) Micro Results Date/Time Source Procedure Growth Status 09/17/17 15:18 Blood Blood Culture Pending Received 09/17/17 14:38 Blood Blood Culture Pending Received Risk Factors for Resistance * Hospitalization for 48 hours or more within the past 90 days * Antimicrobial use within the last 90 days Assessment & Plan Assessment 81 year old female initiated on Vanco/Levaquin/Cefepime IV for sepsis secondary to pulmonary source. Blood cultures pending. MRSA swab ordered. Plan Vancomycin IV * Loading dose: 1500 mg (25 mg/kg) * Maintenance dose: 1000 mg IV (16.5 mg/kg) every 24 hours * Goal trough level for lung source: 15 to 20 mcg/mL * A trough level will be ordered early as this dose is aggressive and based on prior admission data * 09/19/17 @1930 Levaquin IV * Reduce to 750 mg IV every 48 hours Cefepime IV * Reduce to 1 g IV every 24 hours Pharmacy will continue to follow and will adjust dose/frequency as necessary. Thank you.
[2017-09-17] MEDS ORDERED: SODIUM CHLORIDE 0.9% 1000ML 1,000 ML IV SCH (19:30)
[2017-09-17] MEDS ORDERED: VANCOMYCIN INJ 1,500 MG in SODIUM CHLORIDE 0.9% 500ML 500 ML IV ONE (19:30)
[2017-09-17 20:00] VITALS: BP 105/46; PULSE 76; TEMP 36.4; O2SAT 95
[2017-09-17 20:43] LABS: BUN/CREATININE RATIO 18.6 (10-20); CALCIUM 7.5 mg/dl (8.5-10.1); CREATININE 1.45 mg/dl (0.60-1.20); POTASSIUM 4.1 mmol/L (3.5-5.1)
[2017-09-17] MEDS: INSULIN DETEMIR FLEXPEN/FLEX TOUCH 100 UNITS/ML 3ML SC SCH (20:53)
[2017-09-17] MEDS: INSULIN ASPART 100 UNITS/ML 3 ML PEN SC SCH (20:53)
[2017-09-17] MEDS ORDERED: NURSING VERBAL MED ORDER ONE (21:00)
[2017-09-17] MEDS ORDERED: ENOXAPARIN 30 MG/0.3 ML SYR SC SCH (21:00)
[2017-09-17] MEDS ORDERED: ACETAMINOPHEN IV 650 MG / 65ML IV PRN (21:15)
[2017-09-17] MEDS: POLYETHYLENE (MIRALAX) 17 GM PACK PO SCH (21:27)
[2017-09-17] MEDS: ONDANSETRON INJ 2 MG/ML 2 ML VIAL IV PRN (22:04)
[2017-09-17 22:27] VITALS: TEMP 38
[2017-09-17] MEDS: ACETAMINOPHEN IV 650 MG / 65ML IV PRN (22:27)
[2017-09-17 22:51] VITALS: BP 105/46; PULSE 76; TEMP 38; O2SAT 95; BMI 25.4
[2017-09-17] MEDS: CEFEPIME IV 1,000 MG in SYRINGE 0 ML IV SCH (23:36)
[2017-09-17] MEDS: CHECK FENTANYL PATCH PLACEMENT SCH (23:37)
[2017-09-18] VITALS (8 sets, daily range): BP systolic 96–108; BP diastolic 42–61; PULSE 81–116; TEMP 36.4–37.6; O2SAT 93–97
[2017-09-18] MEDS ORDERED: CEFEPIME IV 1,000 MG in DEXTROSE 5% 100ML 100 ML IV SCH ×2
[2017-09-18 06:05] LABS: HEMATOCRIT 26.7 % (37-47); MEAN CELL VOLUME 86.4 fL (80-100); MEAN CORPUSCULAR HEMOGLOBIN 28.5 pg (25-34); MEAN PLATELET VOLUME 9.8 fL (7.4-10.4); PLATELET COUNT 209 K/uL (130-400); RED BLOOD COUNT 3.09 M/uL (4.2-5.4); WHITE BLOOD COUNT 12.41 K/uL (4.8-10.8)
--- NOTE | 2017-09-18 06:14 | Clinical Documentation Query ---
CLINICAL DOCUMENTATION QUERY 81-y/o presents with sepsis 2/2 pneumonia. In your clinical opinion is this patient being managed for: (x ) PIERCE in setting sepsis ( ) CKD stage III ( ) Not Agree ( ) Other explanation of clinical findings (Please Explain) ( ) Unable to determine (Please Define) ( ) Need to Discuss The medical record reflects the following clinical findings, treatment, and risk factors. Clinical Indicators: Presents with BUN 29, Creatinine 1.48, GFR 32.9. Review of previous labs shows baseline creatinine of approximately 1.2-1.4 and GFR range 32-42. Treatment: IV fluid bolus with primary IVF's, daily PRP's, I/O's Risk Factors: Age, Sepsis, nephrectomy status, Please clarify and document your clinical opinion in the progress notes and discharge summary. Terms such as "probable", "suspected", "likely", "questionable", "possible", or "still to be ruled out" are acceptable. IF IN AGREEMENT, YOU MUST DOCUMENT ABOVE DIAGNOSTIC STATEMENT IN DAILY PROGRESS NOTES AND DISCHARGE SUMMARY. This document is not part of the patient's record. Thank You, Eloy Abraham, MANSI [phone]
[2017-09-18 06:27] LABS: BASO % 0.1 %; BASO ABS # 0.01 K/uL (0-0.2); COMPLETE YES; ECHINOCYTES 1+; EOS % 0.1 %; IG% 0.3 %; LYMPH % 2.7 %; LYMPH ABS # 0.33 K/uL (1.2-3.4); MONO % 3.4 %; NEUT % 93.4 %; OVALOCYTES 1+; VACUOLIZATION 2+
[2017-09-18 06:30] LABS: BUN/CREATININE RATIO 20.1 (10-20); CREATININE 1.33 mg/dl (0.60-1.20); MAGNESIUM 1.6 mg/dl (1.8-2.4); POTASSIUM 4.1 mmol/L (3.5-5.1)
[2017-09-18] MEDS: LEVOTHYROXINE 200 MCG TAB PO SCH (06:31)
[2017-09-18] MEDS: SODIUM CHLORIDE 0.9% 1000ML 1,000 ML IV SCH ×3 (08:04→20:58)
[2017-09-18] MEDS: INSULIN ASPART 100 UNITS/ML 3 ML PEN SC SCH ×4 (08:07→20:31)
[2017-09-18] MEDS: INSULIN DETEMIR FLEXPEN/FLEX TOUCH 100 UNITS/ML 3ML SC SCH ×2 (08:07→20:31)
[2017-09-18] MEDS: POLYETHYLENE (MIRALAX) 17 GM PACK PO SCH ×2 (08:08→20:00)
[2017-09-18] MEDS: CHECK FENTANYL PATCH PLACEMENT SCH ×2 (08:09→15:53)
[2017-09-18] MEDS ORDERED: NURSING VERBAL MED ORDER ONE (10:30)
[2017-09-18] MEDS: ACETAMINOPHEN IV 650 MG / 65ML IV PRN (11:10)
[2017-09-18] MEDS: LACTOBACILLUS ACIDOPHILUS (FLORANEX) TAB PO SCH ×2 (12:00→17:25)
[2017-09-18] MEDS ORDERED: LIDODERM (LIDOCAINE) PATCH 5% TD ONE (12:08)
[2017-09-18] MEDS: HYDROCODONE/ACETAMINOPHEN 7.5/325MG TAB PO PRN ×2 (13:06→22:31)
[2017-09-18 13:56] LABS: INFLUENZA A PCR Neg for Influ A (NEG); INFLUENZA B PCR Neg for Influ B (NEG)
--- NOTE | 2017-09-18 14:59 | Hospitalist Progress Note ---
Hospitalist Progress Note Date of Service Sep 18, 2017. (Marcia Abraham, CAMILAC) Subjective Pt evaluation today including: conversation w/ patient, conversation w/ family , physical exam, chart review, lab review, review of studies, review of inpatient medication list Patient seen and evaluated. No acute events overnight. NSR with PACs in 80-90s on monitor. Patient states feeling slightly better but still fatigued. Complaining LUQ discomfort that hasn't changed with BM through the night. There is evidence of LLL atelectasis...questionable pneumonia? But there is fullness of the pancreatic head from metastasis..possible source of pain? Blood Cx + with gram negative bacilli - H/O enterococcus faecalis and e. coli with question of possible biliary stent as source? F/U BCx from that admission where negative. Patient and daughter stated they do not want to utilize anticoagulation. She has a IVC filter but when she had blood clots in the past they started a Lovenox /Coumadin bridge and her INR jumped to 12 and do not want to utilize blood thinners. Constitutional: + fever, + chills, + fatigue Respiratory: No cough, No shortness of breath Cardiovascular: No chest pain Abdomen: + pain (LUQ), + nausea, + constipation, + GI bleeding (BRBPR), No vomiting, No diarrhea Female : No dysuria Skin: No rash (Marcia Abraham, MARCUS-C) Medications Current Inpatient Medications Medications (Trade) Dose Ordered Sig/Suleiman Route Start Time Stop Time Status Last Admin Dose Admin Acetaminophen (Tylenol Tab) 650 mg Q4H PRN PO 09/17/17 17:00 10/17/17 16:59 Ondansetron HCl (Zofran Inj) 4 mg Q6H PRN IV 09/17/17 17:00 10/17/17 16:59 09/17/17 22:04 4 MG Vancomycin HCl 1000 mg/Sodium Chloride 270 ml @ 125 mls/hr Q24H IV 09/18/17 20:00 09/23/17 23:59 Levothyroxine Sodium (Synthroid Tab) 200 mcg DAILYBB PO 09/18/17 06:30 10/18/17 06:59 09/18/17 06:31 200 MCG Pantoprazole Sodium (Protonix Tab) 40 mg QAM PRN PO 09/17/17 17:00 10/17/17 16:59 Insulin Aspart (novoLOG ASPART) SLIDING SCALE G... ACHS SC 09/17/17 21:00 10/17/17 20:59 Vancomycin HCl (Consult) 1 ea UD PRN N/A 09/17/17 17:30 10/17/17 17:29 Levofloxacin 750 mg/Prmx 150 ml @ 100 mls/hr Q48H IV 09/19/17 16:00 09/23/17 23:59 Polyethylene (Miralax Powder Packet) 17 gm BID PO 09/17/17 21:00 10/17/17 20:59 09/17/17 21:27 17 GM Insulin Detemir (Levemir Flexpen/ FlexTouch) 6 units Q12 SC 09/17/17 21:00 10/17/17 20:59 Glucose (Glucose 40% Gel) 15-30 GRAMS 15 GRAMS... UD PRN PO 09/17/17 17:45 10/17/17 17:44 Glucose (Glucose Chew Tab) 4-8 Tablets 4 Tabl... UD PRN PO 09/17/17 17:45 10/17/17 17:44 Dextrose (Dextrose 50% 50ML Syringe) 25-50ML OF 50% DW IV FOR... UD PRN IV 09/17/17 17:45 10/17/17 17:44 09/17/17 20:22 50 ML Glucagon (Glucagon Inj) 1 mg UD PRN SQ 09/17/17 17:45 10/17/17 17:44 Levofloxacin (Consult) 1 ea UD PRN N/A 09/17/17 18:00 10/17/17 17:59 Cefepime HCl (Consult) 1 ea UD PRN N/A 09/17/17 18:00 10/17/17 17:59 Sodium Chloride 1,000 ml @ 100 mls/hr Q10H IV 09/18/17 03:30 10/18/17 03:29 09/18/17 08:04 100 MLS/HR Cefepime HCl 1000 mg/Syringe 11 ml @ 5.5 mls/min Q24H IV 09/18/17 00:00 09/25/17 00:00 09/17/17 23:36 5.5 MLS/MIN Miscellaneous Information (Check Fentanyl Patch Placement) 1 ea QS N/A 09/18/17 00:00 10/18/17 00:00 09/18/17 08:09 1 EA Acetaminophen 650 mg/Empty Bag 65 ml @ 260 mls/hr Q8H PRN IV 09/17/17 21:30 10/17/17 21:29 09/18/17 11:10 260 MLS/HR Miscellaneous (Fentanyl Patch Remove & Waste) 1 ea Q3D@0759 N/A 09/19/17 07:59 10/19/17 07:58 Fentanyl (Duragesic Patch) 50 mcg Q72H TD 09/19/17 08:00 10/03/17 07:59 Lactobacillus Acidophilus (Floranex Tab) 4 tab TIDM PO 09/18/17 12:00 10/18/17 11:59 Acetaminophen/ Hydrocodone Bitart (Point 7.5/325 Tab) one tablet for pain level ... Q4 PRN PO 09/18/17 12:15 10/02/17 12:14 09/18/17 13:06 1 TAB Lidocaine (Lidoderm Patch 5%) 1 patch QAM TD 09/19/17 08:00 10/19/17 08:59 Miscellaneous (Remove Lidoderm Patch) 1 ea DAILY@21 N/A 09/18/17 21:00 10/18/17 20:59 (Marcia Abraham, ELDER) Objective Vital Signs Date Time Temp Pulse Resp B/P (MAP) Pulse Ox O2 Delivery O2 Flow Rate FiO2 09/18/17 12:59 36.7 86 18 107/58 (74) 96 Room Air 09/18/17 12:34 36.7 94 18 93 09/18/17 10:21 36.7 94 18 100/42 (61) 93 Room Air 09/18/17 08:00 Room Air 09/18/17 04:00 Room Air 09/18/17 04:00 36.4 88 18 108/61 (77) 96 Room Air 09/18/17 02:00 36.8 09/18/17 00:00 37.6 116 18 102/55 (71) 93 Room Air 09/18/17 00:00 Room Air 09/17/17 22:51 38.0 76 16 105/46 95 Room Air 09/17/17 22:27 38.0 09/17/17 20:00 36.4 76 16 105/46 (65) 95 Room Air 09/17/17 18:37 36.6 74 18 112/56 96 17 18:36 75 21 17 18:34 74 18 112/56 96 Room Air 09/17/17 18:31 78 19 96 17 18:26 74 18 95 17 18:21 75 23 96 09/17/17 18:16 74 14 97 17 18:11 73 18 96 09/17/17 18:06 71 13 97 09/17/17 18:01 73 17 97 09/17/17 17:57 112/56 09/17/17 17:41 75 14 09/17/17 17:36 73 14 09/17/17 17:31 72 17 09/17/17 17:26 75 19 09/17/17 17:21 75 21 09/17/17 17:16 79 23 09/17/17 17:11 77 16 09/17/17 17:06 77 19 108/48 09/17/17 17:01 72 20 09/17/17 16:56 69 14 09/17/17 16:51 69 15 09/17/17 16:46 73 17 09/17/17 16:41 69 14 17 16:36 70 15 17 16:31 70 14 17 16:26 71 14 17 16:21 69 15 09/17/17 16:16 70 14 09/17/17 16:11 67 19 09/17/17 16:06 72 15 17 16:01 71 15 17 15:56 72 15 17 15:31 73 12 17 15:26 75 15 17 15:21 72 14 17 15:16 75 16 17 15:11 76 14 17 15:06 81 19 09/17/17 15:01 79 20 17 14:56 74 15 98 09/17/17 14:51 75 31 97 (Marcia Abraham, PA-C) Physical Exam General Appearance: no apparent distress, + thin Eyes: sclerae normal ENT: hearing grossly normal Neck: supple, no JVD, trachea midline Respiratory/Chest: no respiratory distress, no accessory muscle use, + decreased breath sounds (bases b/l) Cardiovascular: regular rate, rhythm, no gallop, + systolic murmur Abdomen: normal bowel sounds, non tender, soft, + pertinent finding (reporting intermittent LUQ tenderness - not present on my exam; no rash or findings suggesting shingles) Extremities: no pedal edema Neurologic/Psychiatric: alert, oriented x 3 Skin: normal color, warm/dry (Marcia Abraham, ELDER) Laboratory Results Last 24 Hours Test 09/17/17 15:18 09/17/17 19:47 09/17/17 20:08 09/17/17 20:09 Lactic Acid Level 1.2 mmol/L 1.0 mmol/L Bedside Glucose 51 mg/dl Sodium Level 132 mmol/L Potassium Level 4.1 mmol/L Chloride Level 101 mmol/L Carbon Dioxide Level 25 mmol/L Anion Gap 6.0 mmol/L Blood Urea Nitrogen 27 mg/dl Creatinine 1.45 mg/dl Est Creatinine Clear Calc Drug Dose 24.5 ml/min Estimated GFR () 39.0 Estimated GFR (Non- 33.7 BUN/Creatinine Ratio 18.6 Random Glucose 53 mg/dl Calcium Level 7.5 mg/dl Test 09/17/17 20:14 09/17/17 20:49 09/18/17 01:59 09/18/17 05:28 Bedside Glucose 48 mg/dl 118 mg/dl 91 mg/dl 101 mg/dl Test 09/18/17 05:38 09/18/17 07:04 09/18/17 10:45 09/18/17 11:27 White Blood Count 12.41 K/uL Red Blood Count 3.09 M/uL Hemoglobin 8.8 g/dL Hematocrit 26.7 % Mean Corpuscular Volume 86.4 fL Mean Corpuscular Hemoglobin 28.5 pg Mean Corpuscular Hemoglobin Concent 33.0 g/dl Platelet Count 209 K/uL Mean Platelet Volume 9.8 fL Neutrophils (%) (Auto) 93.4 % Lymphocytes (%) (Auto) 2.7 % Monocytes (%) (Auto) 3.4 % Eosinophils (%) (Auto) 0.1 % Basophils (%) (Auto) 0.1 % Neutrophils # (Auto) 11.60 K/uL Lymphocytes # (Auto) 0.33 K/uL Monocytes # (Auto) 0.42 K/uL Eosinophils # (Auto) 0.01 K/uL Basophils # (Auto) 0.01 K/uL RDW Standard Deviation 56.7 fL RDW Coefficient of Variation 17.9 % Immature Granulocyte % (Auto) 0.3 % Immature Granulocyte # (Auto) 0.04 K/uL Toxic Vacuolation 2+ Ovalocytes 1+ Echinocytes 1+ Sodium Level 132 mmol/L Potassium Level 4.1 mmol/L Chloride Level 104 mmol/L Carbon Dioxide Level 22 mmol/L Anion Gap 6.0 mmol/L Blood Urea Nitrogen 27 mg/dl Creatinine 1.33 mg/dl Est Creatinine Clear Calc Drug Dose 26.7 ml/min Estimated GFR () 43.3 Estimated GFR (Non- 37.4 BUN/Creatinine Ratio 20.1 Random Glucose 89 mg/dl Calcium Level 7.0 mg/dl Magnesium Level 1.6 mg/dl Total Bilirubin 0.7 mg/dl Direct Bilirubin 0.4 mg/dl Aspartate Amino Transf (AST/SGOT) 31 U/L Alanine Aminotransferase (ALT/SGPT) 16 U/L Alkaline Phosphatase 193 U/L Total Protein 5.5 gm/dl Albumin 1.8 gm/dl Bedside Glucose 105 mg/dl 195 mg/dl Influenza Type A (RT-PCR) Neg for Influ A Influenza Type A Antigen Neg for Influ A Influenza Type B Antigen Neg for Influ B Influenza Type B (RT-PCR) Neg for Influ B (Marcia Abraham, PA-C) Assessment and Plan 81 yo female with metastatic renal cell cancer who presents with signs of sepsis , possible pneumonia Sepsis due to Suspected Pneumonia - LLL & Gram Neg Bacilli Bacteremia: - H/O previous bacteremia in February with enterococcus faecalis and e. coli - question possible contamination of stent in biliary tract - F/U BCx showed sterility - Labs improving with reduction in leukocytosis but continued fevers - BP remain low but stable - mentating appropriately with good extremity perfusion - Cefepime 1 g daily and Levofloxacin 750 mg Q48H and will hold Vanc at this time - Acetaminophen IV PRN for fever/pain - NSS at 100 mL/hr L Sided Abdominal Pain: - No rash or lesions suggesting shingles; concern of LLL pneumonia could be source of pain vs metastatic disease vs constipation - CT shows fullness of pancreatic head due to metastasis - Has had multiple bowel movement since admission - noted BRBPR with H/O hemorrhoids and normally constipating hard stool - will continue to monitor - states pain is intermittent and moving bowels did not relieve this - Fentanyl patch 50 mcg Q72H, Lidocaine patch, Tylenol, and Point PRN Hyponatremia: IMPROVING - Continue IVF and continue to monitor - continues to report poor oral intake and will place regular diet PIERCE on CKD Stage III: IMPROVING - Continue to monitor and avoid nephrotoxins - continue IVF BRBPR and Acute on Chronic Anemia: - Patient's baseline Hgb appears to be around 9-10 - suspect element of dilution with fluids but having BPBPR with constipating/hard stool and will monitor - likely secondary to underlying malignancy T2DM with Hypoglycemia: - Patient with poor oral intake and episodes of hypoglycemia - given age have liberalized SSI and diet as bigger concern for hypoglycemia effects than higher readings - goal 140-180 for sugars but would not be against seeing them around 200 either H/O C. Diff: - Continue to monitor for diarrhea; add probiotics and will de-escalate antibiotics when able - Will monitor but consideration for prophylactic oral Vanc as previous records suggests consideration for suppressive dosing Metastatic RCC: - Follows with Dr. Conner and called office - has appt. for Opdivo on Saturday and appointment in place DVT Prophylaxis: - SCDs - Had discussion with daughter and patient who does not want chemical prophylaxis; does have IVC filter -- States she has H/O blood clots and was started on Lovenox/Coumadin bridge with resultant INR to 12; did explain the purpose of prophylaxis but at this time they do not want and will D/C order Code Status: DO NOT RESUSCITATE Disposition: - PT/OT evaluations - Await culture findings - patient was hoping for D/C today but would except 2- 3 days - will obtain F/U BCx before D/C Continued [facility] stay due to: multiple IV medications needed Discharge planning: home (Marcia Abraham, PANancyC) I performed a history and physical examination on the patient. I reviewed above note and agree with what is written. During my face to face interaction with the patient, I updated the patient on the plan and answered all of the patient's questions. My exam is below: General Appearance: no apparent distress, + thin Eyes: sclerae normal ENT: hearing grossly normal Neck: supple, no JVD, trachea midline Respiratory/Chest: no respiratory distress, no accessory muscle use Cardiovascular: regular rate, rhythm, no gallop, + systolic murmur Abdomen: normal bowel sounds, non tender, soft Extremities: no pedal edema Neurologic/Psychiatric: alert, oriented x 3 Skin: normal color, warm/dry (Valdo Du M.D.)
[2017-09-18] MEDS ORDERED: VANCOMYCIN INJ 1,000 MG in SODIUM CHLORIDE 0.9% 250ML 250 ML IV SCH (20:00)
[2017-09-19] MEDS: CHECK FENTANYL PATCH PLACEMENT SCH ×3 (00:31→15:58)
[2017-09-19] MEDS: CEFEPIME IV 1,000 MG in SYRINGE 0 ML IV SCH (00:31)
[2017-09-19] MEDS: LEVOTHYROXINE 200 MCG TAB PO SCH (05:13)
[2017-09-19 06:22] LABS: HEMATOCRIT 26.8 % (37-47); MEAN CELL VOLUME 87.3 fL (80-100); MEAN CORPUSCULAR HEMOGLOBIN 27.7 pg (25-34); MEAN CORPUSCULAR HGB CONC 31.7 g/dl (32-36); MEAN PLATELET VOLUME 9.7 fL (7.4-10.4); PLATELET COUNT 187 K/uL (130-400); RED BLOOD COUNT 3.07 M/uL (4.2-5.4); WHITE BLOOD COUNT 7.99 K/uL (4.8-10.8)
[2017-09-19 07:00] LABS: BUN/CREATININE RATIO 20.4 (10-20); CALCIUM 6.7 mg/dl (8.5-10.1); CREATININE 1.38 mg/dl (0.60-1.20); POTASSIUM 4.1 mmol/L (3.5-5.1)
[2017-09-19 07:03] LABS: ALB/GLOB RATIO 0.5 (0.9-2)
[2017-09-19 07:10] VITALS: BP 104/51; PULSE 77; TEMP 36.5; O2SAT 97
[2017-09-19] MEDS: SODIUM CHLORIDE 0.9% 1000ML 1,000 ML IV SCH (07:45)
[2017-09-19] MEDS: HYDROCODONE/ACETAMINOPHEN 7.5/325MG TAB PO PRN ×3 (07:47→21:10)
[2017-09-19] MEDS: POLYETHYLENE (MIRALAX) 17 GM PACK PO SCH ×2 (07:48→22:17)
[2017-09-19] MEDS: LACTOBACILLUS ACIDOPHILUS (FLORANEX) TAB PO SCH ×3 (07:48→17:07)
[2017-09-19] MEDS: LIDODERM (LIDOCAINE) PATCH 5% TD SCH (07:50)
[2017-09-19] MEDS ORDERED: FENTANYL PATCH REMOVE & WASTE SCH (07:59)
[2017-09-19] MEDS ORDERED: FENTANYL 50 MCG/HR TDSY TD SCH (08:00)
[2017-09-19] MEDS: INSULIN ASPART 100 UNITS/ML 3 ML PEN SC SCH ×4 (08:12→21:04)
[2017-09-19] MEDS: INSULIN DETEMIR FLEXPEN/FLEX TOUCH 100 UNITS/ML 3ML SC SCH (08:14)
[2017-09-19] MEDS ORDERED: SODIUM CHLORIDE 0.9% 500ML 500 ML IV SCH (12:45)
[2017-09-19] MEDS ORDERED: SENNA 8.6 MG TAB PO ONE (12:45)
[2017-09-19 15:42] VITALS: BP 106/55; PULSE 83; TEMP 36.9; O2SAT 97
--- NOTE | 2017-09-19 15:49 | Hospitalist Progress Note ---
Hospitalist Progress Note Date of Service Sep 19, 2017. (Marcia Abraham PA-C) Subjective Pt evaluation today including: conversation w/ patient, conversation w/ family , physical exam, chart review, lab review, review of studies, review of inpatient medication list Patient seen and evaluated. Looking better today and feeling better. Continues to have intermittent LUQ pain but controlled with Malcolm. Will obtain KUB to assess stool if this is the cause but likely this is favoring her metastatic disease that is present in the bone. Leukocytosis resolved and has been afebrile x 24 hours. Will obtain BCx tomorrow to check for sterility. Awaiting cx results to narrow antibiotic coverage BRBPR currently resolved. Constitutional: + weakness (improving), + fatigue (improving), No fever, No chills Respiratory: No cough, No shortness of breath Cardiovascular: No chest pain Abdomen: + pain (LUQ), No nausea, No vomiting, No diarrhea, No constipation , No GI bleeding Musculoskeletal: No calf pain Female : No dysuria Heme: No abnormal bleeding/bruising (Marcia Abraham PA-C) Medications Current Inpatient Medications Medications (Trade) Dose Ordered Sig/Suleiman Route Start Time Stop Time Status Last Admin Dose Admin Acetaminophen (Tylenol Tab) 650 mg Q4H PRN PO 09/17/17 17:00 10/17/17 16:59 Ondansetron HCl (Zofran Inj) 4 mg Q6H PRN IV 09/17/17 17:00 10/17/17 16:59 09/17/17 22:04 4 MG Levothyroxine Sodium (Synthroid Tab) 200 mcg DAILYBB PO 09/18/17 06:30 10/18/17 06:59 09/19/17 05:13 200 MCG Pantoprazole Sodium (Protonix Tab) 40 mg QAM PRN PO 09/17/17 17:00 10/17/17 16:59 Insulin Aspart (novoLOG ASPART) SLIDING SCALE G... ACHS SC 09/17/17 21:00 10/17/17 20:59 09/19/17 11:47 3 UNITS Levofloxacin 750 mg/Prmx 150 ml @ 100 mls/hr Q48H IV 09/19/17 16:00 09/23/17 23:59 Polyethylene (Miralax Powder Packet) 17 gm BID PO 09/17/17 21:00 10/17/17 20:59 09/17/17 21:27 17 GM Insulin Detemir (Levemir Flexpen/ FlexTouch) 6 units Q12 SC 09/17/17 21:00 10/17/17 20:59 09/19/17 08:14 6 UNITS Glucose (Glucose 40% Gel) 15-30 GRAMS 15 GRAMS... UD PRN PO 09/17/17 17:45 10/17/17 17:44 Glucose (Glucose Chew Tab) 4-8 Tablets 4 Tabl... UD PRN PO 09/17/17 17:45 10/17/17 17:44 Dextrose (Dextrose 50% 50ML Syringe) 25-50ML OF 50% DW IV FOR... UD PRN IV 09/17/17 17:45 10/17/17 17:44 09/17/17 20:22 50 ML Glucagon (Glucagon Inj) 1 mg UD PRN SQ 09/17/17 17:45 10/17/17 17:44 Levofloxacin (Consult) 1 ea UD PRN N/A 09/17/17 18:00 10/17/17 17:59 Cefepime HCl (Consult) 1 ea UD PRN N/A 09/17/17 18:00 10/17/17 17:59 Sodium Chloride 1,000 ml @ 100 mls/hr Q10H IV 09/18/17 03:30 10/18/17 03:29 09/19/17 07:45 100 MLS/HR Cefepime HCl 1000 mg/Syringe 11 ml @ 5.5 mls/min Q24H IV 09/18/17 00:00 09/25/17 00:00 09/19/17 00:31 5.5 MLS/MIN Miscellaneous Information (Check Fentanyl Patch Placement) 1 ea QS N/A 09/18/17 00:00 10/18/17 00:00 09/19/17 07:51 1 EA Acetaminophen 650 mg/Empty Bag 65 ml @ 260 mls/hr Q8H PRN IV 09/17/17 21:30 18 21:29 09/18/17 11:10 260 MLS/HR Miscellaneous (Fentanyl Patch Remove & Waste) 1 ea Q3D@0759 N/A 09/19/17 07:59 10/19/17 07:58 09/19/17 08:09 1 EA Fentanyl (Duragesic Patch) 50 mcg Q72H TD 09/19/17 08:00 10/03/17 07:59 09/19/17 08:07 50 MCG Lactobacillus Acidophilus (Floranex Tab) 4 tab TIDM PO 09/18/17 12:00 10/18/17 11:59 09/19/17 11:45 4 TAB Acetaminophen/ Hydrocodone Bitart (Malcolm 7.5/325 Tab) one tablet for pain level ... Q4 PRN PO 09/18/17 12:15 10/02/17 12:14 09/19/17 11:45 1 TAB Lidocaine (Lidoderm Patch 5%) 1 patch QAM TD 09/19/17 08:00 10/19/17 08:59 09/19/17 07:50 1 PATCH Miscellaneous (Remove Lidoderm Patch) 1 ea DAILY@21 N/A 09/18/17 21:00 10/18/17 20:59 09/18/17 22:33 1 EA Senna (Senokot Tab) 8.6 mg DAILY PO 09/20/17 08:00 10/20/17 07:59 (Marcia Abraham, PA-C) Objective Vital Signs Date Time Temp Pulse Resp B/P (MAP) Pulse Ox O2 Delivery O2 Flow Rate FiO2 09/19/17 08:00 Room Air 09/19/17 07:10 36.5 77 20 104/51 (68) 97 Room Air 09/19/17 00:45 Room Air 09/18/17 23:33 36.5 81 17 96/57 (70) 97 Room Air 09/18/17 16:10 Room Air (Marcia Abraham, PA-C) Physical Exam General Appearance: no apparent distress, + thin Eyes: sclerae normal ENT: hearing grossly normal Neck: supple, no JVD, trachea midline Respiratory/Chest: lungs clear, no respiratory distress, no accessory muscle use, + decreased breath sounds (bases b/l) Cardiovascular: regular rate, rhythm Abdomen: normal bowel sounds, non tender, soft Extremities: no pedal edema, no calf tenderness Neurologic/Psychiatric: alert, oriented x 3 Skin: normal color, warm/dry (Marcia Abraham, MARCUS-C) Laboratory Results Last 24 Hours Test 09/18/17 17:13 09/18/17 20:11 09/19/17 00:02 09/19/17 06:07 Bedside Glucose 329 mg/dl 330 mg/dl 272 mg/dl White Blood Count 7.99 K/uL Red Blood Count 3.07 M/uL Hemoglobin 8.5 g/dL Hematocrit 26.8 % Mean Corpuscular Volume 87.3 fL Mean Corpuscular Hemoglobin 27.7 pg Mean Corpuscular Hemoglobin Concent 31.7 g/dl RDW Standard Deviation 58.4 fL RDW Coefficient of Variation 18.1 % Platelet Count 187 K/uL Mean Platelet Volume 9.7 fL Sodium Level 135 mmol/L Potassium Level 4.1 mmol/L Chloride Level 106 mmol/L Carbon Dioxide Level 22 mmol/L Anion Gap 7.0 mmol/L Blood Urea Nitrogen 28 mg/dl Creatinine 1.38 mg/dl Est Creatinine Clear Calc Drug Dose 26.1 ml/min Estimated GFR () 41.5 Estimated GFR (Non- 35.8 BUN/Creatinine Ratio 20.4 Random Glucose 187 mg/dl Calcium Level 6.7 mg/dl Total Bilirubin 0.4 mg/dl Aspartate Amino Transf (AST/SGOT) 15 U/L Alanine Aminotransferase (ALT/SGPT) 11 U/L Alkaline Phosphatase 178 U/L Total Protein 5.5 gm/dl Albumin 1.8 gm/dl Globulin 3.7 gm/dl Albumin/Globulin Ratio 0.5 Test 09/19/17 07:34 09/19/17 11:22 Bedside Glucose 192 mg/dl 290 mg/dl (Marcia Abraham PA-C) Assessment and Plan 81 yo female with metastatic renal cell cancer who presents with signs of sepsis , possible pneumonia Sepsis due to Suspected Pneumonia - LLL & Gram Neg Bacilli Bacteremia: IMPROVING - H/O previous bacteremia in February with enterococcus faecalis and e. coli - question possible contamination of stent in biliary tract - F/U BCx showed sterility - BP remain low but stable - mentating appropriately with good extremity perfusion - Cefepime 1 g daily and Levofloxacin 750 mg Q48H and Vanc D/Cd - Acetaminophen IV PRN for fever/pain - NSS at 100 mL/hr - did give bolus 500 cc due to reduced urine output L Sided Abdominal Pain: - No rash or lesions suggesting shingles; concern of LLL pneumonia could be source of pain vs metastatic disease vs constipation - CT shows fullness of pancreatic head due to metastasis - Has had multiple bowel movement since admission - noted BRBPR yesterday but currently resolved - possible hemorrhoids vs anal fissure - will continue to monitor - Fentanyl patch 50 mcg Q72H, Lidocaine patch, Tylenol, and Malcolm PRN Hyponatremia: IMPROVING - Continue IVF and continue to monitor - reporting appetite is improving PIERCE on CKD Stage III: RESOLVED - At baseline - Continue to monitor and avoid nephrotoxins - continue IVF BRBPR (RESOLVED) and Acute on Chronic Anemia: - Patient's baseline Hgb appears to be around 9-10 - suspect element of dilution with fluids but having BPBPR with constipating/hard stool and will monitor - likely secondary to underlying malignancy T2DM with Hypoglycemia: - Patient with poor oral intake and episodes of hypoglycemia and now improved - given age have liberalized SSI and regular diet as bigger concern for hypoglycemia effects than higher readings - goal 140-180 for sugars but would not be against seeing them around 200 either H/O C. Diff: - Continue to monitor for diarrhea; add probiotics and will de-escalate antibiotics when able - Will monitor but consideration for prophylactic oral Vanc as previous records suggests consideration for suppressive dosing Metastatic RCC: - Follows with Dr. Conner and called office - has appt. for Opdivo on Saturday and appointment in place DVT Prophylaxis: - SCDs - Had discussion with daughter and patient who does not want chemical prophylaxis; does have IVC filter -- States she has H/O blood clots and was started on Lovenox/Coumadin bridge with resultant INR to 12; did explain the purpose of prophylaxis but at this time they do not want and will D/C order Code Status: DO NOT RESUSCITATE Disposition: - PT/OT evaluations - Await culture findings -hoping to downgrade antibiotics tomorrow and obtain new BCx tomorrow for sterility Continued [facility] stay due to: multiple IV medications needed Discharge planning: home (Marcia Abraham PA-C) I performed a history and physical examination on the patient. I reviewed above note and agree with what is written. During my face to face interaction with the patient, I updated the patient on the plan and answered all of the patient's questions. My exam is below: General Appearance: thin , no apparent distress Neck: supple, no JVD, trachea midline Respiratory/Chest: lungs clear, normal breath sounds, no respiratory distress, no accessory muscle use Cardiovascular: regular rate, rhythm, Abdomen: normal bowel sounds, non tender, soft Extremities: no pedal edema, no calf tenderness, Neurologic/Psychiatric: alert, oriented x 3 Skin: normal color, warm/dry (Valdo Du M.D.)
[2017-09-19] MEDS ORDERED: LEVOFLOXACIN / D5W 750 MG in PREMIXED IN D5W 150 ML IV SCH (16:00)
--- NOTE | 2017-09-19 16:01 | DIAGNOSTIC IMAGING REPORT ---
KUB HISTORY: Generalized abdominal pain. COMPARISON: Abdomen and pelvis CT 09/17/2017. FINDINGS: There is a metallic common bile duct stent, IVC filter, and left-sided surgical clips, unchanged. Gas-filled nondilated air-filled loops of large and small bowel are again noted. No evidence for bowel obstruction. No renal calculi. No ureteral calculi. No pneumoperitoneum or pneumatosis. Pneumobilia remains unchanged. Trace bilateral pleural effusions and left basilar densities which favor atelectasis. Scattered skeletal metastases are again noted most pronounced within the right pelvis with an associated healing pathologic fracture of the right iliac bone. IMPRESSION: No change compared to prior study. No evidence for bowel obstruction. Electronically signed by: Donovan Pan M.D. 09/19/2017 3:59 PM Dictated Date/Time: 09/19/2017 3:57 PM
[2017-09-19] MEDS ORDERED: PHARMACY GLYCEMIC MGMT CONSULT PRN (17:27)
[2017-09-19] MEDS ORDERED: INSULIN ASPART 100 UNITS/ML 3 ML PEN SC ONE (17:45)
[2017-09-19] MEDS ORDERED: INSULIN DETEMIR FLEXPEN/FLEX TOUCH 100 UNITS/ML 3ML SC ONE (17:45)
[2017-09-19] MEDS ORDERED: VANCOMYCIN TROUGH SCH (19:30)
[2017-09-19] MEDS ORDERED: INSULIN DETEMIR FLEXPEN/FLEX TOUCH 100 UNITS/ML 3ML SC SCH (20:00)
[2017-09-19] MEDS ORDERED: INSULIN HUMAN REGULAR PER UNIT 5 UNITS in SYRINGE 0 ML IV ONE (20:45)
[2017-09-20 00:07] VITALS: BP 111/60; PULSE 77; TEMP 36.9; O2SAT 98
[2017-09-20] MEDS: CEFEPIME IV 1,000 MG in SYRINGE 0 ML IV SCH (00:09)
[2017-09-20] MEDS: INSULIN ASPART 100 UNITS/ML 3 ML PEN SC SCH ×4 (00:16→12:51)
[2017-09-20] MEDS: SODIUM CHLORIDE 0.9% 1000ML 1,000 ML IV SCH ×2 (00:17→10:44)
[2017-09-20] MEDS: CHECK FENTANYL PATCH PLACEMENT SCH ×3 (00:20→16:21)
[2017-09-20] MEDS: HYDROCODONE/ACETAMINOPHEN 7.5/325MG TAB PO PRN ×2 (04:44→14:52)
[2017-09-20] MEDS: LEVOTHYROXINE 200 MCG TAB PO SCH (06:10)
[2017-09-20 06:18] LABS: HEMATOCRIT 27.8 % (37-47); MEAN CELL VOLUME 87.4 fL (80-100); MEAN CORPUSCULAR HEMOGLOBIN 28.3 pg (25-34); MEAN CORPUSCULAR HGB CONC 32.4 g/dl (32-36); MEAN PLATELET VOLUME 9.8 fL (7.4-10.4); PLATELET COUNT 188 K/uL (130-400); RED BLOOD COUNT 3.18 M/uL (4.2-5.4); WHITE BLOOD COUNT 8.54 K/uL (4.8-10.8)
[2017-09-20 06:51] LABS: BUN/CREATININE RATIO 18.3 (10-20); CALCIUM 6.8 mg/dl (8.5-10.1); CREATININE 1.32 mg/dl (0.60-1.20); POTASSIUM 4.2 mmol/L (3.5-5.1)
[2017-09-20 06:53] LABS: ALB/GLOB RATIO 0.5 (0.9-2)
[2017-09-20 06:56] LABS: ESTIMATED AVERAGE GLUCOSE 214 mg/dl; HA1C FLAG Normal (Normal)
[2017-09-20 07:39] VITALS: BP 110/64; PULSE 81; TEMP 36.8; O2SAT 95
[2017-09-20] MEDS ORDERED: FENTANYL PATCH REMOVE & WASTE SCH (07:59)
[2017-09-20] MEDS ORDERED: FENTANYL 50 MCG/HR TDSY TD SCH (08:00)
[2017-09-20] MEDS ORDERED: INSULIN DETEMIR FLEXPEN/FLEX TOUCH 100 UNITS/ML 3ML SC SCH (08:00)
[2017-09-20] MEDS ORDERED: SENNA 8.6 MG TAB PO SCH (08:00)
[2017-09-20] MEDS: POLYETHYLENE (MIRALAX) 17 GM PACK PO SCH (08:26)
[2017-09-20] MEDS: LACTOBACILLUS ACIDOPHILUS (FLORANEX) TAB PO SCH ×2 (09:33→12:52)
[2017-09-20] MEDS: LIDODERM (LIDOCAINE) PATCH 5% TD SCH (09:35)
--- NOTE | 2017-09-20 11:23 | Pharmacy Progress Note ---
Pharmacy Glycemic Short Note 2 Date of Service Sep 20, 2017. OUTPATIENT ANTIDIABETIC REGIMEN: * Levemir 10 units SQ BID * HbA1c: 9.1% (09/20/17) ASSESSMENT: * Ms Malagon is an 81yo diabetic female admitted with sepsis. She is known to pharmacy glycemic management service from past admissions. * Patient has demonstrated that she is quite insulin sensitive in the past. * Last evening patient was significantly hyperglycemic, but over-corrected and became hypoglycemic after the administration of a very small amount of insulin. * BSG 340 --> Levemir 6 units + Reg insulin 5 units IV --> BSG 68 * Patient is receiving IV Levaquin and Cefepime for sepsis, and also NS @ 100mL/ hr. * Patient is ordered a Type 2 diabetic diet, which she appears to be tolerating. PLAN FOR INPATIENT GLYCEMIC CONTROL: * Basal insulin * Lantus 6 units SQ BID * Will adjust cautiously, in the setting of insulin sensitivity * Bolus insulin * NovoLog per scale ACHS or Q6hrs while NPO * Goal Range: Low 110 mg/dL - High 140 mg/dL * Correction Factor: 30 mg/dL/unit * Nutritional / Prandial insulin per carb ratio of 1 unit per 10 grams CHO consumed PLAN FOR DISCHARGE: * Current A1c (9.1%) suggests that patient could use slightly better glycemic control as an outpatient, but is not unreasonable. * Would prefer A1c ~8-8.5%. * Expect that it will be reasonable for patient to resume home regimen on discharge.
[2017-09-20 11:52] VITALS: Ht 152.4 cm; Wt 63.9 kg
[2017-09-20] MEDS ORDERED: CEFAZOLIN IV 2,000 MG in SYRINGE 0 ML IV ONE (14:00)
[2017-09-20] MEDS ORDERED: LDDP5 TD (14:12)
[2017-09-20] MEDS ORDERED: LVQ750 PO (14:12)
[2017-09-20] MEDS ORDERED: SENN-61 PO (14:12)
--- NOTE | 2017-09-20 14:25 | Discharge Instructions ---
Discharge Instructions Date of Service Sep 20, 2017. Admission Reason for Admission: Hypotension, Sepsis Discharge Discharge Diagnosis / Problem: Sepsis from E. Coli Bacteremia Discharge Goals Goal(s): Decrease discomfort, Improve function, Increase independence Activity Recommendations Activity Limitations: resume your previous activity . Instructions / Follow-Up Instructions / Follow-Up 81 yo female with metastatic renal cell cancer who presents with signs of sepsis , possible pneumonia Sepsis due to Possible Pneumonia and E. Coli Bacteremia: IMPROVING - Taking a look at your old cultures you grew two organisms at that time and this time it is only showing one bacteria however you will be placed on an antibiotic that would cover both organisms if it would pop up on culture later - Due to your kidney function we have to dose your antibiotics every other day. We will use Levaquin 750 mg -- Take them on the following dates 09/21, 09/23, 09/25, 09/27, and 09/29 - You had repeat blood cultures done today and we will keep track of them and let you know if anything comes up. I anticipate they will not grow anything L Sided Abdominal Pain: Constipation or Cancer Pain - Watch this area for any rash or lesions that could be shingles - nothing is present at this time - Recommend to use your Senna daily especially when using pain medication and can use Miralax daily too if needed. Stay hydrated and try to eat high fiber foods to help keep your stool soft Red Blood with Bowel Movements (RESOLVED) and Acute on Chronic Anemia: - You blood counts are actually trending up and are currently at 9 - and will need to be monitored by your family doctor or oncologist - Promote good bowel habits to prevent hemorrhoidal bleeding and small tears that can happen with hard stool T2DM with Hypoglycemia: - Continue to monitor your sugars especially when not having much of an appetite Low Blood Pressure: - Your blood pressure is improving and at a good place. - Recommend to HOLD YOUR LISINOPRIL for the next 3-4 days and continue to monitor your blood pressure. -- Talk with your family doctor about this medication - If your blood pressure starts to go above 120/80 you can start this medication sooner than 3-4 days especially if your Opdivo causes your blood pressure to go up. Current Hospital Diet Patient's current hospital diet: Diabetes Type 2 Diet Discharge Diet Recommended Diet: Diabetes Type 2 Diet Pending Studies Studies pending at discharge: yes List of pending studies: Repeat blood cultures - will call if anything grows on this Laboratory Results Hemoglobin A1c Test 09/20/17 05:42 Range/Units Estimated Average Glucose 214 mg/dl Hemoglobin A1c 9.1 H 4.5-5.6 % Medical Emergencies . Who to Call and When: Medical Emergencies: If at any time you feel your situation is an emergency, please call 911 immediately. . Non-Emergent Contact Non-Emergency issues call your: Primary Care Provider Call Non-Emergent contact if: you have a fever, your pain is concerning you, you have any medication questions . . "Provider Documentation" section prepared by Marcia Abraham. . VTE Core Measure Inpt VTE Proph given/why not?: Enoxaparin (Lovenox)SQ
[2017-09-20] MEDS: ONDANSETRON INJ 2 MG/ML 2 ML VIAL IV PRN (14:50)
[2017-09-20] MEDS ORDERED: HYDR-3983 PO (16:11)
[2017-09-20] MEDS ORDERED: FNTTP50 TD (16:11)
[2017-09-20] MEDS ORDERED: ONDA8TAB62 SL (16:15)
[2017-09-20 16:58] VITALS: BP 110/64; PULSE 81; TEMP 36.8; O2SAT 95
--- NOTE | 2017-09-20 18:36 | Discharge Summary ---
Discharge Summary Date of Service Sep 20, 2017. Discharge Summary Admission Date: Sep 17, 2017 at 16:54 Discharge Date: Sep 20, 2017 Discharge Disposition: Home with services Principal Diagnosis: Sepsis from Pansensitive E. Coli Bacteremia and Possible LLL Pneumonia Problems/Secondary Diagnoses: 1. T2DM 2. H/O DVT 3. HTN 4. Metastatic Renal Cell Carcinoma - Bone, Lung 5. Pathologic L Proximal Humerus Fx 6. S/P L Nephrectomy 7. Secondary Hyperparathyroidism 8. S/P IVC Filter Immunizations: Have You Had Influenza Vaccine: Yes History of Tetanus Vaccine?: Unknown History of Pneumococcal: Yes History of Hepatitis B Vaccine: No Procedures: CHEST ONE VIEW PORTABLE FINDINGS: Note is again made of a destructive left second rib lesion as well as a pathologic fracture of the left humeral neck, as shown on prior chest CT. The left lower lobe lesion, measuring approximately 2.5 cm cm is again noted. There is moderate cardiomegaly. Left basilar opacity is noted. IMPRESSION: 1. Left basilar opacity which favors atelectasis. 2. Stable cardiomegaly. Pulmonary vascular congestion without overt pulmonary edema. 3. Redemonstration of a left second rib metastasis, pathologic fracture of the left humeral neck and a 2.6 cm left lower lobe metastasis. CT OF THE ABDOMEN AND PELVIS WITHOUT CONTRAST FINDINGS: Visualized portions of the lower chest demonstrate a stable 2.3 cm left lower lobe pulmonary nodule which is suggestive of a metastasis. There are trace bilateral pleural effusions with associated subpleural opacities which favor atelectasis. No pneumatosis, free air or portal venous gas is present. Evaluation of the abdomen and pelvis is suboptimal on this unenhanced exam. A common bile duct stent is unchanged in position. Pneumobilia is again noted. Mild biliary ductal dilatation is unchanged. Minimal fluid, debris or soft tissue within the distal aspect of the stent is unchanged since prior CT. Gallstone is noted. Innumerable bilobar hepatic metastases are unchanged. Left kidney is surgically absent. Multiple pancreatic/peripancreatic masses are similar to prior exam. An IVC filter is in place. 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 Numerous skeletal metastases are noted, including a right iliac bone lesion with pathologic fracture. There is also a pathologic fracture involving a left anterior inferior rib due to metastasis. Moderate amount of stool within the rectum is noted. There is no evidence for a bowel obstruction. Apparent wall thickening of the cecum and ascending colon is likely due to underdistention. IMPRESSION: 1. No significant change since prior CT of September 09, 2017. Findings consistent with widespread metastatic disease including hepatic and skeletal metastases. Fullness of the pancreatic head which favors metastatic disease or peripancreatic lymphadenopathy. 2. No change in position of the common bile duct stent. Pneumobilia. No change in minimal fluid, debris or soft tissue within the distal aspect of the stent. 3. No bowel obstruction. Moderate amount of stool within the rectum. 4.. Wall thickening of the ascending colon and cecum which is likely due to underdistention however a nonspecific colitis could appear similar. KUB FINDINGS: There is a metallic common bile duct stent, IVC filter, and left-sided surgical clips, unchanged. Gas-filled nondilated air-filled loops of large and small bowel are again noted. No evidence for bowel obstruction. No renal calculi. No ureteral calculi. No pneumoperitoneum or pneumatosis. Pneumobilia remains unchanged. Trace bilateral pleural effusions and left basilar densities which favor atelectasis. Scattered skeletal metastases are again noted most pronounced within the right pelvis with an associated healing pathologic fracture of the right iliac bone. IMPRESSION: No change compared to prior study. No evidence for bowel obstruction. Consultations: 1. PT/OT Medication Reconciliation New Medications: Ondansetron Odt (Zofran Odt) 8 Mg Soltab 8 MG SL Q6H PRN for Nausea for 30 Days, #60 TAB Levofloxacin (Levofloxacin) 750 Mg Tab 750 MG PO Q2D@11, #5 TAB Take one dose on the , , , , and . Lidocaine (Lidocaine) 1 Patch Tdsy 1 PATCH TD QAM for 30 Days, #30 PATCH For metastatic bone pain. Apply to left abdomen/rib cage. Changed Medications: Hydrocodone/Acetaminophen 7.5MG/325MG (Rosanky 7.5MG/325MG) Tab 1 TAB PO Q4 PRN for Pain for 30 Days, #90 TAB 0 Refills (Changed from: 1-2 TAB; Refills: ; PRN PAIN) Take 1 tablet by mouth q4h for severe pain. Continued Medications: Acetaminophen Tab (Tylenol) 325 Mg Tab 650 MG PO Q4 PRN for Pain ALTERNATES DOSES WITH NORCO Calcium Carbonate (Calcium) 500 Mg Chw 500 MG PO DAILY Cyanocobalamin (Cyanocobalamin) 1 Pow Pow 1 TAB PO DAILY CHEWABLE Denosumab (Xgeva) 120 Mg/1.7 Ml Inj 1 DOSE SQ MONTHLY Fentanyl (Duragesic) 50 Mcg Tdsy 50 MCG TD [id number] for 30 Days, #10 PATCH (This prescription has been renewed) Furosemide (Lasix) 20 Mg Tab 20 MG PO 2XWK PRN for EDEMA, TAB MON AND THURS Insulin Detemir (Levemir Flextouch) 100 Unit/Ml Inj 10 UNITS SQ AMPM Lactobacillus-Inulin (Culturelle) 1 Cap Cap 1 CAP PO DAILY Levothyroxine Sodium (Levothyroxine Sodium) 200 Mcg Tab 200 MCG PO DAILY Lisinopril (Lisinopril) 10 Mg Tab 10 MG PO DAILY Nivolumab (Opdivo) Unknown Strength Inj 1 DOSE IV [id number] Ondansetron Hcl (Zofran) 8 Mg Tab 8 MG PO Q8 PRN for Nausea Pantoprazole (Protonix) 40 Mg Tab 40 MG PO QAM PRN for Indigestion Polyethylene Glycol 3350 (Miralax) 1 Pow Pow 17 GM PO DAILY PRN for Constipation Senna (Senokot) 8.6 Mg Tab 1 TAB PO DAILY for 30 Days, #30 TABS 0 Refills (This prescription has been renewed) Discharge Exam Review of Systems: Constitutional: + fatigue (IMPROVING), No fever, No chills ENT: No nasal symptoms, No sore throat, No trouble swallowing Respiratory: No cough, No shortness of breath Cardiovascular: No chest pain Abdomen: + pain (LUQ), + constipation, No nausea, No vomiting, No diarrhea, No GI bleeding Musculoskeletal: No swelling, No calf pain Genitourinary - Female: No dysuria Hematologic / Lymphatic: No abnormal bleeding/bruising Integumentary: No rash Physical Exam: General Appearance: no apparent distress Eyes: sclerae normal ENT: hearing grossly normal Neck: supple, no JVD, trachea midline Respiratory/Chest: lungs clear, normal breath sounds, no respiratory distress, no accessory muscle use Cardiovascular: regular rate, rhythm Abdomen / GI: normal bowel sounds, soft, + tenderness (L lower rib cage) Extremities: no calf tenderness, no pedal edema Neurologic/Psychiatric: alert, oriented x 3 Skin: normal color, warm/dry Hospital Course ADMISSION: 81 yo female with well known history of metastatic renal cell cancer who presents today with weakness, fever and poor appetite. The patient lives with her daughters who are at the bedside to help with the recent history. The patient reports feeling left sided abdominal and flank pain starting yesterday. The pain has been off and on. She has experienced a similar pain in the past , seemed to improve with moving her bowels. Her last BM was two nights ago, hard, difficult to pass. In addition to the pain, she developed a fever of 103 F early this morning with rigors and chills. No cough, no dysuria, no nausea/ vomiting and no diarrhea. No rash. The fever broke with Tylenol 1000mg. The patient had poor oral intake today. Family opted to bring her to the hospital because earlier this year she started with a similar presentation, they waited several days and she had a Cr of 4.0 so they wanted to avoid the PIERCE.Currently she is being treated with Opdivo as salvage therapy for her metastatic renal cancer. She has evidence of liver, pancreas, and multiple skeletal lesions. She had a CT of the Abdomen/Pelvis last week to see if she was responding to Opdivo. I reviewed results with patient and her family. The lesions in the liver are slightly larger and there are still lesions in her pancreas.In the ED , her BP was 104/57, HR in the 80's, no fever, respirations normal and nonlabored. WBC high at 23k. Cr at 1.4. Lactic acid 2. CT abdomen/pelvis similar to outpatient study a week prior, no acute changes to suggest infection or inflammation. CXR with left sided atelectasis, no other findings. UA clean. Blood cultures drawn, patient ordered Levaquin and Zosyn and received 1 liter of NSS. BP was 108/48 on repeat. HOSPITAL COURSE: Ms. Malagon was admitted for Sepsis from Pansensitive E. Coli Bacteremia. There was question of superimposed LLL Pneumonia on CXR but this is appearing less likely. She was initially placed on triple therapy with Cefepime, Levaquin, and Vancomycin and was downgraded to Levaquin 750 mg Q2D for renal function and will complete a 14 day course. Initial cultures with pansensitive E. coli, it is possible this originated from a urine source but no culture was sent. In February 2017 she grew E. coli and Enterococcus and this was likely UTI and question of permanent biliary stent contributor. Did cover with antibiotics in case continued culture would grow enterococcus faecalis again, which Levaquin should cover. Repeat BCx obtained to confirm sterility and currently are NGTD. During admission her BP has remained low but not directly hypotensive or symptomatic. CT suggests adrenal metastasis and will need to monitor for ongoing issue. Instructed to hold Lisinopril until BP continues to trend > 120/80 but may need to be stopped altogether. During admission she complained of LUQ abdominal pain that appeared to be more tender along the rib line. This may be multifactorial from her metastatic disease with pancreatic fullness and rib metastasis as well as constipation. Encouraged a scheduled Senna bowel routine and Miralax daily if needed to prevent constipation. She did have some BRBPR from hard stool but this resolved before discharge. Patient is afebrile and without leukocytosis. Pain is controlled with her prescribed medications and new Rx given for pain control. She is optimal for discharge with outpatient follow-up. Dr. Du Note I performed a history and physical exam during my face to face encounter with patient. I reviewed above note and agree with it. I discussed plan of care with patient and APC and answered all of the patient's questions My exam is below General Appearance: WD/WN, no apparent distress Eyes: sclerae normal Neck: supple, no JVD, trachea midline Respiratory/Chest: no respiratory distress, no accessory muscle use, CTA B/L Cardiovascular: regular rate, rhythm, Abdomen / GI: normal bowel sounds, non tender, soft Neurologic/Psychiatric: alert Skin: normal color, warm/dry Total Time Spent: Greater than 30 minutes This includes examination of the patient, discharge planning, medication reconciliation, and communication with other providers. Discharge Instructions Please refer to the electronic Patient Visit Report (Discharge Instructions) for additional information. Additional Copies To Kamini Dunn M.D.; Juma Conner M.D.
[2017-09-21] MEDS ORDERED: CEFAZOLIN IV 1,000 MG in SYRINGE 0 ML IV SCH (02:00)
[2017-09-21] MEDS ORDERED: FENTANYL PATCH REMOVE & WASTE SCH (07:59)
[2017-09-21] MEDS ORDERED: LEVOFLOXACIN 750 MG TAB PO SCH (11:00)
== END 2017-09-20 17:45 | disposition home or self-care (01) | DRG 871 ==
LOC: C.EDB 13:52 → C.MED 16:54 → EDBEDREQ 16:56 → ENRESERV 17:39 → C.4E 09-18 13:04
PROVIDERS: ADMIT Internal Medicine; ATTEND Internal Medicine Sports Medicine
DX: A41.51 Sepsis due to Escherichia coli [E. coli] (principal); J18.9 Pneumonia, unspecified organism; E87.1 Hypo-osmolality and hyponatremia; N17.9 Acute kidney failure, unspecified; D62 Acute posthemorrhagic anemia; K62.5 Hemorrhage of anus and rectum; C79.51 Secondary malignant neoplasm of bone; C78.00 Secondary malignant neoplasm of unspecified lung; E11.65 Type 2 diabetes mellitus with hyperglycemia; G89.29 Other chronic pain; N18.3 Chronic kidney disease, stage 3 (moderate); R10.9 Unspecified abdominal pain; Z66 Do not resuscitate; Z79.4 Long term (current) use of insulin; Z79.899 Other long term (current) drug therapy; Z90.5 Acquired absence of kidney; Z86.718 Personal history of other venous thrombosis and embolism; Z85.528 Personal history of other malignant neoplasm of kidney

== ENCOUNTER 2017-12-23 11:25 | Inpatient (IN) | payer OTHER, MEDICARE ==
[~2017-12-23] VITALS: Ht 152.4 cm; Wt 58.0 kg
[~2017-12-23 11:25] MED LIST changes: +ACET-1693 PO; -ACET325T96 PO; -FURO-85 PO; -INSU3INJ3 SQ; -LACT10CA3 PO; +LDDP5 TD; -LEVO200T6 PO; +LVQ750 PO; -NIVO4INJ IV; -ONDA8TAB6 PO; -POLY335019 PO; -VANC1CAP19 PO
[2017-12-23 12:43] LABS: BASO % 0.2 %; BASO ABS # 0.02 K/uL (0-0.2); HEMATOCRIT 31.5 % (37-47); HEMOGLOBIN 10.2 g/dL (12.0-16.0); IG# 0.02 K/uL (0.00-0.02); LYMPH % 4.7 %; MEAN CELL VOLUME 86.1 fL (80-100); MEAN CORPUSCULAR HEMOGLOBIN 27.9 pg (25-34); MEAN CORPUSCULAR HGB CONC 32.4 g/dl (32-36); MEAN PLATELET VOLUME 9.7 fL (7.4-10.4); MONO % 4.1 %; MONO ABS # 0.44 K/uL (0.11-0.59); NEUT % 90.8 %; NEUT ABS # 9.71 K/uL (1.4-6.5); PLATELET COUNT 290 K/uL (130-400); RED CELL DISTRIBUTION WIDTH SD 56.7 fL (36.4-46.3); WHITE BLOOD COUNT 10.69 K/uL (4.8-10.8)
[2017-12-23] MEDS ORDERED: ACET-1256 PO (12:51)
[2017-12-23] MEDS ORDERED: [UNRECOGNIZED DRUG - CODE] (12:51)
[2017-12-23 12:52] LABS: INR 1.1 (0.9-1.1); PTT PATIENT 28.3 SECONDS (21.0-31.0)
[2017-12-23 13:04] LABS: ALBUMIN 2.3 gm/dl (3.4-5.0); ALT/SGPT 18 U/L (12-78); AST/SGOT 38 U/L (15-37); BLOOD UREA NITROGEN 27 mg/dl (7-18); CALCIUM 8.3 mg/dl (8.5-10.1); CARBON DIOXIDE 24 mmol/L (21-32); CREATININE 1.53 mg/dl (0.60-1.20); GLUCOSE 205 mg/dl (70-99); POTASSIUM 4.6 mmol/L (3.5-5.1); SODIUM 131 mmol/L (136-145)
--- NOTE | 2017-12-23 13:04 | DIAGNOSTIC IMAGING REPORT ---
CHEST ONE VIEW PORTABLE CLINICAL HISTORY: 82 years-old Female presenting with Sepsis. TECHNIQUE: Portable upright AP view of the chest was obtained. COMPARISON: 09/17/2017. FINDINGS: The patient is HERNANDEZ rotated. Atherosclerosis of aortic arch. Cardiac silhouette enlarged. Multiple skin folds noted over the left hemithorax. No gross evidence of a focal opacity. Nodule at the paramediastinal left lung base poorly visualized and better seen on CT from 09/09/2017. Redemonstration of the known metastasis in the second left rib with associated extrapleural soft tissue. Chronic fracture of the left humeral neck with nearly one shaft width medial displacement of the distal fracture fragment, which demonstrates greater impaction than on prior exam. Degenerative changes of the spine. Osteopenia suspected. Cortical irregularity of the right scapula is indeterminate but may suggest prior injury. Surgical clips project over the epigastrium. IMPRESSION: 1. No acute cardiopulmonary disease. 2. Redemonstration of known left rib metastasis. 3. Poorly demonstrated known left basilar nodule. 4. Chronic displaced left humeral neck fracture with worsened impaction. Electronically signed by: Boni Szymanski M.D. 12/23/2017 1:02 PM Dictated Date/Time: 12/23/2017 12:58 PM
[2017-12-23 13:09] LABS: ALKALINE PHOSPHATASE 270 U/L (45-117); TOTAL PROTEIN 6.9 gm/dl (6.4-8.2)
[2017-12-23 13:17] LABS: INFLUENZA B ANTIGEN Neg for Influ B (NEG)
[2017-12-23] MEDS ORDERED: SODIUM CHLORIDE 0.9% 500ML 500 ML IV STA (13:29)
[2017-12-23] MEDS ORDERED: NIVO4INJ IV (14:02)
[2017-12-23] MEDS ORDERED: ONDA-170 PO (14:02)
[2017-12-23] MEDS ORDERED: LACT10CA3 PO (14:02)
[2017-12-23] MEDS ORDERED: LEVO200T6 PO (14:02)
--- NOTE | 2017-12-23 14:39 | EMERGENCY ROOM VISIT NOTE ---
History Report prepared by Ruiz: Alison Cristina Under the Supervision of: Dr. Farooq Brower M.D. First contact with patient: 12:02 Chief Complaint: FEVER Stated Complaint: FEVER, POSSIBLE PNEUMONIA History of Present Illness The patient is an 82 year old female who presents to the Emergency Room with complaints of persistent fever starting 24 hours ago. Her fever has been responding to Tylenol. She has had chills, generalized weakness, and fatigue. She denies any cough or SOB. She has a history of UTI and pneumonia. She has 1 kidney. She is on Lasix for a history of CHF. She is currently on chemotherapy for metastatic renal cell carcinoma. She is not on any blood thinners. Source of History: patient, family Onset: 24 hours ago Quality: other (fever) Timing: other (persistent) Modifying Factors (Relieving): tylenol Associated Symptoms: + chills, + fatigue, + weakness, No cough, No SOB Review of Systems See HPI for pertinent positives & negatives. A total of 10 systems reviewed and were otherwise negative. 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 (8) Secondary hyperparathyroidism (9) Sepsis Family History Diabetes mellitus Heart disease Hypertension Social History Smoking Status: Never Smoker Alcohol Use: none Drug Use: none Marital Status: Housing Status: lives with family Occupation Status: retired Current/Historical Medications Scheduled Calcium Carbonate (Calcium), 500 MG PO DAILY Cyanocobalamin (Cyanocobalamin), 1 TAB PO DAILY Denosumab (Xgeva), 1 DOSE SQ MONTHLY Fentanyl (Duragesic), 50 MCG TD [id number] Insulin Detemir (Levemir Flextouch), 10 UNITS SQ AMPM Lactobacillus-Inulin (Culturelle), 1 CAP PO DAILY Levothyroxine Sodium (Levothyroxine Sodium), 200 MCG PO DAILY Nivolumab (Opdivo), 1 DOSE IV [id number] Senna (Senokot), 1 TAB PO DAILY Scheduled PRN Acetaminophen (Tylenol), 1,000 MG PO UD PRN for Pain Furosemide (Lasix), 20 MG PO 4XWK PRN for EDEMA Hydrocodone/Acetaminophen 7.5MG/325MG ([place] 7.5MG/325MG), 1 TAB PO Q4 PRN for Pain Ondansetron Hcl (Zofran), 8 MG PO Q8 PRN for Nausea Polyethylene Glycol 3350 (Miralax), 17 GM PO DAILY PRN for Constipation Miscellaneous Medications Darbepoetin Eddie-Polysorbate 8 (Aranesp Albumin Free) Allergies Coded Allergies: Adhesives (Verified Allergy, Mild, LOCAL SKIN IRRITATION, BLISTERS, ) Uncoded Allergies: ANTICOAGULANTS (Adverse Reaction, Intermediate, INCREASED INR -PER FAMILY, 05/20/17) Physical Exam Vital Signs Date Time Temp Pulse Resp B/P (MAP) Pulse Ox O2 Delivery O2 Flow Rate FiO2 12/23/17 14:30 85 18 129/49 97 Room Air 12/23/17 14:00 82 18 127/54 98 Room Air 12/23/17 13:30 81 18 131/46 100 Room Air 12/23/17 12:29 95 Room Air 12/23/17 11:47 36.8 83 18 106/62 98 Room Air Physical Exam GENERAL: Awake, alert, well-appearing, in no acute distress HENT: Normocephalic, atraumatic. Oropharynx unremarkable. EYES: Normal conjunctiva. Sclera non-icteric. NECK: Supple. No nuchal rigidity. FROM. No JVD. RESPIRATORY: Clear to auscultation. CARDIAC: Regular rate, normal rhythm. Grade 2/6 systolic murmur. Extremities warm and well perfused. Pulses equal. ABDOMEN: Soft, non-distended. No tenderness to palpation. No rebound or guarding. No masses. RECTAL: Deferred. MUSCULOSKELETAL: Chest examination reveals no tenderness. The back is symmetrical on inspection without obvious abnormality. There is no CVA tenderness to palpation. No joint edema. LOWER EXTREMITIES: Calves are equal size bilaterally and non-tender. No edema. No discoloration. NEURO: Normal sensorium. No sensory or motor deficits noted. SKIN: No rash or jaundice noted. Medical Decision & Procedures ER Provider Diagnostic Interpretation: X-ray results as stated below per interpretation by me and the radiologist: CHEST ONE VIEW PORTABLE CLINICAL HISTORY: 82 years-old Female presenting with Sepsis. TECHNIQUE: Portable upright AP view of the chest was obtained. COMPARISON: 09/17/2017. FINDINGS: The patient is HERNANDEZ rotated. Atherosclerosis of aortic arch. Cardiac silhouette enlarged. Multiple skin folds noted over the left hemithorax. No gross evidence of a focal opacity. Nodule at the paramediastinal left lung base poorly visualized and better seen on CT from 09/09/2017. Redemonstration of the known metastasis in the second left rib with associated extrapleural soft tissue. Chronic fracture of the left humeral neck with nearly one shaft width medial displacement of the distal fracture fragment, which demonstrates greater impaction than on prior exam. Degenerative changes of the spine. Osteopenia suspected. Cortical irregularity of the right scapula is indeterminate but may suggest prior injury. Surgical clips project over the epigastrium. IMPRESSION: 1. No acute cardiopulmonary disease. 2. Redemonstration of known left rib metastasis. 3. Poorly demonstrated known left basilar nodule. 4. Chronic displaced left humeral neck fracture with worsened impaction. Electronically signed by: Boni Szymanski M.D. 12/23/2017 1:02 PM Dictated Date/Time: 12/23/2017 12:58 PM Laboratory Results 12/23/17 12:30 Red Blood Count 3.66, Mean Corpuscular Volume 86.1, Mean Corpuscular Hemoglobin 27.9, Mean Corpuscular Hemoglobin Concent 32.4, Mean Platelet Volume 9.7, Neutrophils (%) (Auto) 90.8, Lymphocytes (%) (Auto) 4.7, Monocytes (%) (Auto) 4.1, Eosinophils (%) (Auto) 0.0, Basophils (%) (Auto) 0.2, Neutrophils # (Auto) 9.71, Lymphocytes # (Auto) 0.50, Monocytes # (Auto) 0.44, Eosinophils # (Auto) 0.00, Basophils # (Auto) 0.02 12/23/17 12:30 Test 12/23/17 12:28 12/23/17 12:30 12/23/17 12:41 12/23/17 13:30 Influenza Type A Antigen Neg for Influ A (NEG) Influenza Type B Antigen Neg for Influ B (NEG) White Blood Count 10.69 K/uL (4.8-10.8) Red Blood Count 3.66 M/uL (4.2-5.4) Hemoglobin 10.2 g/dL (12.0-16.0) Hematocrit 31.5 % (37-47) Mean Corpuscular Volume 86.1 fL (80-100) Mean Corpuscular Hemoglobin 27.9 pg (25-34) Mean Corpuscular Hemoglobin Concent 32.4 g/dl (32-36) Platelet Count 290 K/uL (130-400) Mean Platelet Volume 9.7 fL (7.4-10.4) Neutrophils (%) (Auto) 90.8 % Lymphocytes (%) (Auto) 4.7 % Monocytes (%) (Auto) 4.1 % Eosinophils (%) (Auto) 0.0 % Basophils (%) (Auto) 0.2 % Neutrophils # (Auto) 9.71 K/uL (1.4-6.5) Lymphocytes # (Auto) 0.50 K/uL (1.2-3.4) Monocytes # (Auto) 0.44 K/uL (0.11-0.59) Eosinophils # (Auto) 0.00 K/uL (0-0.5) Basophils # (Auto) 0.02 K/uL (0-0.2) RDW Standard Deviation 56.7 fL (36.4-46.3) RDW Coefficient of Variation 18.0 % (11.5-14.5) Immature Granulocyte % (Auto) 0.2 % Immature Granulocyte # (Auto) 0.02 K/uL (0.00-0.02) Prothrombin Time 11.2 SECONDS (9.0-12.0) Prothromb Time International Ratio 1.1 (0.9-1.1) Activated Partial Thromboplast Time 28.3 SECONDS (21.0-31.0) Partial Thromboplastin Ratio 1.1 Anion Gap 8.0 mmol/L (3-11) Estimated GFR () 36.3 Estimated GFR (Non- 31.4 BUN/Creatinine Ratio 17.9 (10-20) Calcium Level 8.3 mg/dl (8.5-10.1) Total Bilirubin 0.7 mg/dl (0.2-1) Aspartate Amino Transf (AST/SGOT) 38 U/L (15-37) Alanine Aminotransferase (ALT/SGPT) 18 U/L (12-78) Alkaline Phosphatase 270 U/L (45-117) Pro-B-Type Natriuretic Peptide 9814 pg/ml (0-1800) Total Protein 6.9 gm/dl (6.4-8.2) Albumin 2.3 gm/dl (3.4-5.0) Globulin 4.6 gm/dl (2.5-4.0) Albumin/Globulin Ratio 0.5 (0.9-2) Bedside Lactic Acid Venous 1.07 mmol/L (0.90-1.70) Urine Color DK YELLOW Urine Appearance CLEAR (CLEAR) Urine pH 5.0 (4.5-7.5) Urine Specific [place] 1.023 (1.000-1.030) Urine Protein TRACE (NEG) Urine Glucose (UA) NEG (NEG) Urine Ketones TRACE (NEG) Urine Occult Blood 1+ (NEG) Urine Nitrite NEG (NEG) Urine Bilirubin NEG (NEG) Urine Urobilinogen NEG (NEG) Urine Leukocyte Esterase TRACE (NEG) Urine WBC (Auto) 1-5 /hpf (0-5) Urine RBC (Auto) 5-10 /hpf (0-4) Urine Hyaline Casts (Auto) 1-5 /lpf (0-5) Urine Epithelial Cells (Auto) 10-20 /lpf (0-5) Urine Bacteria (Auto) NEG (NEG) Labs reviewed by ED physician. Medications Administered Medications (Trade) Dose Ordered Sig/Suleiman Route Start Time Stop Time Status Last Admin Dose Admin Sodium Chloride 500 ml @ 999 mls/hr Q31M STAT IV 12/23/17 13:29 12/23/17 13:59 DC 12/23/17 13:30 999 MLS/HR ECG Per My Interpretation Indication: weakness Rate (beats per minute): 77 Rhythm: normal sinus Findings: other (no ST elevation or depression, normal axis) ED Course 1203: Past medical records reviewed. The patient was evaluated in room C1B. A complete history and physical examination was performed. 1329: NSS 500 ml @ 999 mls/hr IV. 1330: Upon reexamination the patient is resting comfortably. I discussed results and treatment plan with the patient and her family. They verbalize agreement and understanding. The patient will be evaluated for further management. 1340: I discussed the patient's case with Dr. Roman, [facility] [place]. She has agreed to evaluate the patient for further management and care. Medical Decision Differential diagnosis: Etiologies such as metabolic, infection, hypo/hyperglycemia, electrolyte abnormalities, cardiac sources, intracerebral event, toxicologic, neurologic, as well as others were entertained. This is a patient that is 82 years old that is receiving chemotherapy. The patient reports fevers at home. The patient is afebrile here however she is on chemotherapy. Due to this reason blood cultures chest x-ray urine culture were all obtained. Patient has a slight elevation in her white blood cell count. She has a normal lactic acid. She did receive normal saline bolus here in the emergency department as I do feel that she is dehydrated. I did discuss the case with the hospitalist service who agreed to admit the patient. Patient and family were in agreement with the treatment plan. Medication Reconcilliation Current Medication List: was personally reviewed by me Blood Pressure Screening Patient's blood pressure: Normal blood pressure Blood pressure disposition: Did not require urgent referral Consults Time Called: 1335 Consulting Physician: Dr. Roman, [facility] [place] Returned Call: [phone] I discussed the patient's case with her. She has agreed to evaluate the patient for further management and care. Impression Primary Impression: Weakness Additional Impression: Dehydration Scribe Attestation The scribe's documentation has been prepared under my direction and personally reviewed by me in its entirety. I confirm that the note above accurately reflects all work, treatment, procedures, and medical decision making performed by me. Departure Information Dispostion Being Evaluated By Hospitalist Referrals Hang Lomeli M.D. (PCP) Patient Instructions My [facility] Problem Qualifiers
[2017-12-23] MEDS ORDERED: GLUCAGON FOR INJ 1 MG VIAL SQ PRN (14:45)
[2017-12-23] MEDS ORDERED: VANCOMYCIN CONSULT ACTIVE PRN ×2 (14:45)
[2017-12-23] MEDS ORDERED: GLUCOSE 10 TABS/TUBE PO PRN (14:45)
[2017-12-23] MEDS ORDERED: ACETAMINOPHEN 325 MG TAB PO PRN (14:45)
[2017-12-23] MEDS ORDERED: DEXTROSE 50% 50 ML SYR IV PRN (14:45)
[2017-12-23] MEDS ORDERED: PIPERACILL/TAZOBAC CONSULT ACTIVE PRN ×2 (14:45)
[2017-12-23] MEDS ORDERED: HYDROCODONE/ACETAMINOPHEN 7.5/325MG TAB PO PRN (14:45)
[2017-12-23] MEDS ORDERED: GLUCOSE 40% GEL 15 GM TUBE PO PRN (14:45)
[2017-12-23] MEDS ORDERED: ONDANSETRON INJ 2 MG/ML 2 ML VIAL IV PRN (14:45)
--- NOTE | 2017-12-23 14:57 | History and Physical ---
History & Physical Date & Time of Service: Dec 23, 2017 at 14:55 Chief Complaint: Fever, Possible Pneumonia Primary Care Physician: Hang Lomeli M.D. 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 intake, and fevers to 101 since last night. She had one episode of nausea and vomiting last night, but denies abdominal pain/diarrhea, denies cough or shortness of breath, denies urinary symptoms. Upon arrival in the ER, she was mildly hypotensive at 106/62 and was given a gentle 500 mL normal saline bolus. Her creatinine was mildly elevated above baseline at 1.58 and she appeared dehydrated. Her chest x-ray was negative, flu swab was negative, urinalysis was negative, and she had no leukocytosis. She was afebrile in our ER, but her daughter who is a nurse measured her temp to 101 at home. Blood cultures were drawn. She has a history of biliary sepsis, as well as UTI with sepsis in the past, and as above, she is on immunosuppressive therapy for her cancer. She does not have a port in place. Of note, she was recently admitted to [facility] a few weeks ago for chest pain and acute on chronic diastolic CHF. She will be admitted for fevers, generalized weakness, and acute renal insufficiency with dehydration. Past Medical/Surgical History PMH: Metastatic renal cell carcinoma with metastases to the bones/lung/pancreas currently on Opdivo CKD stage III with unilateral kidney History of DVT now status post IVC filter after significant issues with coagulopathy History of biliary obstruction with bare-metal stent in the biliary tract DM 2 Chronic diastolic CHF Anemia of chronic disease Hypothyroidism Chronic left pathologic humerus fracture PSH: Left nephrectomy-1997 Biliary stent placement IVC filter C-sections Family History Diabetes mellitus Heart disease Hypertension Noncontributory due to advanced age Social History Smoking Status: Never Smoker Alcohol Use: none Drug Use: none Marital Status: Housing status: lives with family Occupational Status: retired Immunizations History of Influenza Vaccine: Yes History of Tetanus Vaccine?: Unknown History of Pneumococcal: Yes History of Hepatitis B Vaccine: No Allergies Coded Allergies: Adhesives (Verified Allergy, Mild, LOCAL SKIN IRRITATION, BLISTERS, ) Uncoded Allergies: ANTICOAGULANTS (Adverse Reaction, Intermediate, INCREASED INR -PER FAMILY, 05/20/17) Home Medications Scheduled Calcium Carbonate (Calcium), 500 MG PO DAILY Cyanocobalamin (Cyanocobalamin), 1 TAB PO DAILY Denosumab (Xgeva), 1 DOSE SQ MONTHLY Fentanyl (Duragesic), 50 MCG TD [id number] Insulin Detemir (Levemir Flextouch), 10 UNITS SQ AMPM Lactobacillus-Inulin (Culturelle), 1 CAP PO DAILY Levothyroxine Sodium (Levothyroxine Sodium), 200 MCG PO DAILY Nivolumab (Opdivo), 1 DOSE IV [id number] Senna (Senokot), 1 TAB PO DAILY Scheduled PRN Acetaminophen (Tylenol), 1,000 MG PO UD PRN for Pain Furosemide (Lasix), 20 MG PO 4XWK PRN for EDEMA Hydrocodone/Acetaminophen 7.5MG/325MG ([place] 7.5MG/325MG), 1 TAB PO Q4 PRN for Pain Ondansetron Hcl (Zofran), 8 MG PO Q8 PRN for Nausea Polyethylene Glycol 3350 (Miralax), 17 GM PO DAILY PRN for Constipation Miscellaneous Medications Darbepoetin Eddie-Polysorbate 8 (Aranesp Albumin Free) Review of Systems Constitutional: + fever, + fatigue Eyes: No problem reported ENT: No sore throat Respiratory: No cough, No sputum, No shortness of breath Cardiovascular: No chest pain Abdomen: + nausea, + vomiting, No pain, No diarrhea, No constipation Musculoskeletal: No problem reported Genitourinary - Female: No problem reported Neurologic: No problem reported Psychiatric: No problem reported Endocrine: No problem reported Hematologic / Lymphatic: No problem reported Integumentary: No problem reported Allergic / Immunologic: No problem reported Physical Exam Vital Signs Date Time Temp Pulse Resp B/P (MAP) Pulse Ox O2 Delivery O2 Flow Rate FiO2 12/23/17 12:29 95 Room Air 12/23/17 11:47 36.8 83 18 106/62 98 Room Air General Appearance: + thin (Lying in bed in and out of sleep, but does wake up to verbal stimuli and answers questions appropriately) Head: normocephalic, atraumatic Eyes: normal inspection, PERRL, EOMI, sclerae normal ENT: hearing grossly normal, + pertinent finding (Very dry mucous membranes) Neck: trachea midline Respiratory/Chest: lungs clear, normal breath sounds, no respiratory distress, no accessory muscle use Cardiovascular: regular rate, rhythm, + systolic murmur (3/6 at the RUSB) Abdomen/GI: normal bowel sounds, non tender, soft, no organomegaly Back: + pertinent finding (Kyphosis) Extremities/Musculoskelatal: + swelling (1-2+ pitting edema to the knees bilaterally, with mild erythema and chronic venous insufficiency changes) Neurologic/Psych: no motor/sensory deficits, + pertinent finding (Lethargic, but does respond appropriately to questions as above) Skin: normal color, warm/dry, no rash Lymphatic: + cervical node abnormality (Left anterior cervical enlarged lymph node palpable and nontender) Diagnostics Laboratory Results Results Past 24 Hours Test 12/23/17 12:28 12/23/17 12:30 12/23/17 12:41 12/23/17 13:30 Range/Units Influenza Type A Antigen Neg for Influ A NEG Influenza Type B Antigen Neg for Influ B NEG White Blood Count 10.69 4.8-10.8 K/uL Red Blood Count 3.66 4.2-5.4 M/uL Hemoglobin 10.2 12.0-16.0 g/dL Hematocrit 31.5 37-47 % Mean Corpuscular Volume 86.1 80-100 fL Mean Corpuscular Hemoglobin 27.9 25-34 pg Mean Corpuscular Hemoglobin Concent 32.4 32-36 g/dl Platelet Count 290 130-400 K/uL Mean Platelet Volume 9.7 7.4-10.4 fL Neutrophils (%) (Auto) 90.8 % Lymphocytes (%) (Auto) 4.7 % Monocytes (%) (Auto) 4.1 % Eosinophils (%) (Auto) 0.0 % Basophils (%) (Auto) 0.2 % Neutrophils # (Auto) 9.71 1.4-6.5 K/uL Lymphocytes # (Auto) 0.50 1.2-3.4 K/uL Monocytes # (Auto) 0.44 0.11-0.59 K/uL Eosinophils # (Auto) 0.00 0-0.5 K/uL Basophils # (Auto) 0.02 0-0.2 K/uL RDW Standard Deviation 56.7 36.4-46.3 fL RDW Coefficient of Variation 18.0 11.5-14.5 % Immature Granulocyte % (Auto) 0.2 % Immature Granulocyte # (Auto) 0.02 0.00-0.02 K/uL Prothrombin Time 11.2 9.0-12.0 SECONDS Prothromb Time International Ratio 1.1 0.9-1.1 Activated Partial Thromboplast Time 28.3 21.0-31.0 SECONDS Partial Thromboplastin Ratio 1.1 Sodium Level 131 136-145 mmol/L Potassium Level 4.6 3.5-5.1 mmol/L Chloride Level 99 98-107 mmol/L Carbon Dioxide Level 24 21-32 mmol/L Anion Gap 8.0 3-11 mmol/L Blood Urea Nitrogen 27 7-18 mg/dl Creatinine 1.53 0.60-1.20 mg/dl Estimated GFR () 36.3 Estimated GFR (Non- 31.4 BUN/Creatinine Ratio 17.9 10-20 Random Glucose 205 70-99 mg/dl Calcium Level 8.3 8.5-10.1 mg/dl Total Bilirubin 0.7 0.2-1 mg/dl Aspartate Amino Transf (AST/SGOT) 38 15-37 U/L Alanine Aminotransferase (ALT/SGPT) 18 12-78 U/L Alkaline Phosphatase 270 45-117 U/L Pro-B-Type Natriuretic Peptide 9814 0-1800 pg/ml Total Protein 6.9 6.4-8.2 gm/dl Albumin 2.3 3.4-5.0 gm/dl Globulin 4.6 2.5-4.0 gm/dl Albumin/Globulin Ratio 0.5 0.9-2 Bedside Lactic Acid Venous 1.07 0.90-1.70 mmol/L Urine Color DK YELLOW Urine Appearance CLEAR CLEAR Urine pH 5.0 4.5-7.5 Urine Specific [place] 1.023 1.000-1.030 Urine Protein TRACE NEG Urine Glucose (UA) NEG NEG Urine Ketones TRACE NEG Urine Occult Blood 1+ NEG Urine Nitrite NEG NEG Urine Bilirubin NEG NEG Urine Urobilinogen NEG NEG Urine Leukocyte Esterase TRACE NEG Urine WBC (Auto) 1-5 0-5 /hpf Urine RBC (Auto) 5-10 0-4 /hpf Urine Hyaline Casts (Auto) 1-5 0-5 /lpf Urine Epithelial Cells (Auto) 10-20 0-5 /lpf Urine Bacteria (Auto) NEG NEG Microbiology Results 12/23/17 Blood Culture, Received Pending 12/23/17 Blood Culture, Received Pending Diagnostic Radiology Chest x-ray images personally reviewed by me and agree with the following report : CHEST ONE VIEW PORTABLE CLINICAL HISTORY: 82 years-old Female presenting with Sepsis. TECHNIQUE: Portable upright AP view of the chest was obtained. COMPARISON: 09/17/2017. FINDINGS: The patient is HERNANDEZ rotated. Atherosclerosis of aortic arch. Cardiac silhouette enlarged. Multiple skin folds noted over the left hemithorax. No gross evidence of a focal opacity. Nodule at the paramediastinal left lung base poorly visualized and better seen on CT from 09/09/2017. Redemonstration of the known metastasis in the second left rib with associated extrapleural soft tissue. Chronic fracture of the left humeral neck with nearly one shaft width medial displacement of the distal fracture fragment, which demonstrates greater impaction than on prior exam. Degenerative changes of the spine. Osteopenia suspected. Cortical irregularity of the right scapula is indeterminate but may suggest prior injury. Surgical clips project over the epigastrium. IMPRESSION: 1. No acute cardiopulmonary disease. 2. Redemonstration of known left rib metastasis. 3. Poorly demonstrated known left basilar nodule. 4. Chronic displaced left humeral neck fracture with worsened impaction. EKG Normal sinus rhythm with normal rate, nonspecific T-wave changes in the inferior leads new from before Impression Assessment and Plan This patient is an 82-year-old female with history of 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 intake, and fevers to 101 since last night. She had one episode of nausea and vomiting last night, but denies abdominal pain/diarrhea, denies cough or shortness of breath, denies urinary symptoms. Upon arrival in the ER, she was mildly hypotensive at 106/62 and was given a gentle 500 mL normal saline bolus. Her creatinine was mildly elevated above baseline at 1.58 and she appeared dehydrated. Her chest x-ray was negative, flu swab was negative, urinalysis was negative, and she had no leukocytosis. She was afebrile in our ER, but her daughter who is a nurse measured her temp to 101 at home. Blood cultures were drawn. She has a history of biliary sepsis, as well as UTI with sepsis in the past, and as above, she is on immunosuppressive therapy for her cancer. She does not have a port in place. Of note, she was recently admitted to [facility] a few weeks ago for chest pain and acute on chronic diastolic CHF. Fevers/weakness/dehydration/acute renal insufficiency/hyponatremia-no clear source of infection, she does have a biliary stent, h/o UTIs, but no symptoms otherwise i.e no abdominal pain or tenderness, no urinary symptoms, no respiratory symptoms. Flu antigen swab negative, chest x-ray negative for acute findings, UA borderline positive for infection, but may be contaminated. Creatinine mildly elevated at 1.58 on admission up from baseline of 1.2-1.3 -Admit to telemetry for close cardiac monitoring -Continue gentle IVFs with caution given history of CHF, however she appears significantly dehydrated on exam -Follow BCxs, urine culture -We will start empiric antibiotics given immunosuppression and recent hospitalization at [facility] --> Zosyn and Vanco would cover for both pulmonary and urinary sources, as well as biliary [id number] or discontinue if cultures negative and no source found -check flu PCR Follow PRP -Check pro calcitonin in the morning -Will repeat chest x-ray in the morning to see if fluffs out an infiltrate overnight with hydration Chronic diastolic CHF/Chronic peripheral edema-dehydrated currently. Family reports her lower extremity edema is actually much improved from previous -continue gentle IVFs -Holding home Lasix Renal cell carcinoma with mets to bones,lung,pancreas/chronic pain-follows with Dr. Lomeli of [facility] oncology. Hold all chemotherapeutic agents at this time. -Continue fentanyl patch and hydrocodone as needed for breakthrough pain for her bony metastases History of DVT with Coumadin coagulopathy/status post IVC filter-no evidence of DVT at this time DM 2-family requests that her glucose be kept above 150 at all times or else she gets hypoglycemic symptoms -Loose sliding scale insulin -Accu-Cheks -Continue Levemir at lowest dose of her home sliding scale dosing regimen-6 units -Check hemoglobin A1c in the morning Hypothyroidism-last TSH checked here in 02/2017 was high at 9 -Check TSH in the morning -Continue home levothyroxine dose for now Prophylaxis-EUSEBIA wiley only as per family's request given significant bleeding issues and coagulopathy in the past Disposition-from home, with significant weakness and illness, will need PT/OT consults and possible SNF for rehab placement DNR/DNI Resuscitation Status VTE Prophylaxis Will order VTE Prophylaxis: Yes Reason for no VTE drug order: Refusal of treatmnt by pt Additional Copies To Hang Lomeli M.D.; Kamini Dunn M.D.
[2017-12-23 15:17] VITALS: BP 129/49; PULSE 85; TEMP 36.8; TEMP 38; O2SAT 95; BMI 23.8; BMI 25.4
[2017-12-23] MEDS ORDERED: CALC500C73 PO (15:17)
[2017-12-23] MEDS ORDERED: CYANPOW PO (15:17)
[2017-12-23] MEDS ORDERED: PATIENT'S HEIGHT AND/OR WEIGHT NEEDED SCH (15:30)
[2017-12-23] MEDS ORDERED: PATIENT'S HEIGHT AND/OR WEIGHT NEEDED STA (15:31)
[2017-12-23] MEDS ORDERED: VANCOMYCIN IV 1,250 MG in SODIUM CHLORIDE 0.9% 250ML 250 ML IV ONE (16:00)
[2017-12-23] MEDS ORDERED: PIPERACILL/TAZOBAC IV 3.375 GM in DEXTROSE 5% 100ML 100 ML IV ONE (16:00)
[2017-12-23] MEDS ORDERED: INSULIN ASPART 100 UNITS/ML 3 ML PEN SC SCH (16:30)
[2017-12-23] MEDS: CHECK FENTANYL PATCH PLACEMENT SCH (17:00)
[2017-12-23] MEDS: SODIUM CHLORIDE 0.9% 1000ML 1,000 ML IV SCH (17:38)
[2017-12-23 18:00] VITALS: TEMP 37.5
[2017-12-23 19:00] VITALS: TEMP 37.1
[2017-12-23 19:57] VITALS: BP 115/58; PULSE 91; TEMP 37.1; O2SAT 94
[2017-12-23] MEDS ORDERED: NURSING VERBAL MED ORDER ONE (20:00)
[2017-12-23] MEDS ORDERED: ACETAMINOPHEN IV 1000MG/100ML IV PRN (20:15)
[2017-12-23] MEDS ORDERED: VANCOMYCIN IV 1,000 MG in SODIUM CHLORIDE 0.9% 250ML 250 ML IV SCH (21:00)
[2017-12-23] MEDS: PIPERACILL/TAZOBAC IV 3.375 GM in DEXTROSE 5% 100ML 100 ML IV SCH (21:33)
[2017-12-23] MEDS: INSULIN ASPART 100 UNITS/ML 3 ML PEN SC SCH (21:34)
[2017-12-23] MEDS: INSULIN DETEMIR FLEXPEN/FLEX TOUCH 100 UNITS/ML 3ML SQ SCH (21:35)
[2017-12-23] MEDS ORDERED: INSU3INJ3 SQ (23:10)
[2017-12-23] MEDS ORDERED: FURO-85 PO (23:13)
[2017-12-23] MEDS ORDERED: POLY335019 PO (23:18)
[2017-12-24] VITALS (9 sets, daily range): BP systolic 90–111; BP diastolic 47–62; PULSE 75–80; TEMP 36.5–37.1; O2SAT 94–98; BMI 25.5
[2017-12-24] MEDS: CHECK FENTANYL PATCH PLACEMENT SCH ×3 (00:25→15:37)
[2017-12-24] MEDS ORDERED: INSULIN HUMAN REGULAR SC SCH (01:15)
[2017-12-24] MEDS ORDERED: PHARMACY GLYCEMIC MGMT CONSULT PRN (01:45)
[2017-12-24] MEDS ORDERED: INSULIN HUMAN REGULAR PER UNIT 6 UNITS in SYRINGE 5.94 ML IV SCH (02:00)
[2017-12-24] MEDS: PIPERACILL/TAZOBAC IV 3.375 GM in DEXTROSE 5% 100ML 100 ML IV SCH ×3 (05:57→21:49)
[2017-12-24] MEDS: LEVOTHYROXINE 200 MCG TAB PO SCH (05:58)
[2017-12-24 06:00] LABS: BASO % 0.5 %; BASO ABS # 0.03 K/uL (0-0.2); EOS % 1.5 %; EOS ABS # 0.09 K/uL (0-0.5); HEMATOCRIT 31.2 % (37-47); HEMOGLOBIN 9.9 g/dL (12.0-16.0); IG# 0.02 K/uL (0.00-0.02); LYMPH ABS # 0.67 K/uL (1.2-3.4); MEAN CORPUSCULAR HEMOGLOBIN 27.3 pg (25-34); MEAN CORPUSCULAR HGB CONC 31.7 g/dl (32-36); MEAN PLATELET VOLUME 9.5 fL (7.4-10.4); MONO ABS # 0.67 K/uL (0.11-0.59); NEUT % 75.7 %; NEUT ABS # 4.62 K/uL (1.4-6.5); PLATELET COUNT 248 K/uL (130-400); RED CELL DISTRIBUTION WIDTH CV 18.2 % (11.5-14.5); RED CELL DISTRIBUTION WIDTH SD 58.1 fL (36.4-46.3)
[2017-12-24 06:35] LABS: HEMOGLOBIN A1C 8.8 % (4.5-5.6)
[2017-12-24 06:43] LABS: CALCIUM 7.7 mg/dl (8.5-10.1); CREATININE 1.54 mg/dl (0.60-1.20); POTASSIUM 3.8 mmol/L (3.5-5.1)
--- NOTE | 2017-12-24 07:26 | DIAGNOSTIC IMAGING REPORT ---
SINGLE VIEW CHEST CLINICAL HISTORY: Fever. FINDINGS: An AP, portable, upright chest radiograph is compared to study dated 12/23/2017 and correlated with chest CT dated 09/09/2017. The examination is degraded by portable technique and patient rotation. The heart is enlarged and there is atherosclerotic calcification of the thoracic aorta. The pulmonary vasculature is noncongested. Chronic interstitial thickening is similar to previous. The right lung appears clear. A destructive left-sided rib lesion with associated left upper lobe scarring/opacification is similar to previous. Opacities at the left lung base are unchanged from prior studies. No pneumothorax is seen. The skeletal structures are osteopenic. Advanced degenerative change and scoliosis are identified in the thoracic spine. There is chronic posttraumatic deformity of the left proximal humerus. Surgical clips are noted in the upper abdomen. IMPRESSION: 1. Cardiomegaly without radiographic evidence of congestive failure. 2. Left basilar opacities are unchanged from recent prior examinations. There is no clear radiographic evidence of superimposed pneumonia. 3. A left upper rib lesion with associated underlying pleural-parenchymal changes again noted. Electronically signed by: Shadi Echols M.D. 12/24/2017 7:25 AM Dictated Date/Time: 12/24/2017 7:22 AM
[2017-12-24] MEDS ORDERED: INSULIN HUMAN REGULAR IV BOLUS 6 UNIT in SYRINGE 0 ML IV SCH (08:00)
[2017-12-24] MEDS ORDERED: INSULIN DETEMIR FLEXPEN/FLEX TOUCH 100 UNITS/ML 3ML SC ONE (08:00)
[2017-12-24] MEDS: FENTANYL 50 MCG/HR TDSY TD SCH (08:02)
[2017-12-24] MEDS: CALCIUM CARBONATE 1250MG TAB PO SCH (08:02)
[2017-12-24] MEDS: SENNA 8.6 MG TAB PO SCH (08:02)
[2017-12-24] MEDS: FENTANYL PATCH REMOVE & WASTE SCH (08:15)
[2017-12-24] MEDS: INSULIN ASPART 100 UNITS/ML 3 ML PEN SC SCH ×4 (08:54→21:00)
[2017-12-24] MEDS ORDERED: VANCOMYCIN IV 1,000 MG in SODIUM CHLORIDE 0.9% 250ML 250 ML IV SCH (09:15)
--- NOTE | 2017-12-24 11:33 | Hospitalist Progress Note ---
Hospitalist Progress Note Date of Service Dec 24, 2017. (Anabel Resendiz ., SY) Subjective Pt evaluation today including: conversation w/ patient, conversation w/ family , physical exam, chart review, lab review, review of inpatient medication list Voiding: no voiding problems Ms. Malagon feels somewhat better today. She really has no complaints other than the fevers she has been having and some dehydration. She was afebrile over the night and today. No events on telemetry ROS Constitutional: no chills, aches, sweats or fever Respiratory: no sob,cough, sputum, or wheezing Cardiac: no chest pain, palpitations, edema, orthopnea or lightheadedness GI: no abdominal pain, nausea, vomiting, diarrhea or constipation : no dysuria or hesitancy Extremities: no joint pain or weakness Skin: no rash All other systems reviewed and negative (Anabel Resendiz .SY) Medications Medications Administered Medications (Trade) Dose Ordered Sig/Suleiman Route Start Time Stop Time Status Last Admin Dose Admin Sodium Chloride 500 ml @ 999 mls/hr Q31M STAT IV 12/23/17 13:29 12/23/17 13:59 DC 12/23/17 13:30 999 MLS/HR Piperacillin Sod/ Tazobactam Sod 3.375 gm/Dextrose 115 ml @ 28.75 mls/ hr Q8H IV 12/23/17 22:00 12/25/17 21:59 12/24/17 05:57 28.75 MLS/HR Piperacillin Sod/ Tazobactam Sod 3.375 gm/Dextrose 115 ml @ 200 mls/hr ONE ONCE IV 12/23/17 16:00 12/23/17 16:34 DC 12/23/17 16:58 200 MLS/HR Vancomycin HCl 1250 mg/Sodium Chloride 275 ml @ 125 mls/hr NOW ONCE IV 12/23/17 16:00 12/23/17 18:11 DC 12/23/17 16:58 125 MLS/HR Sodium Chloride 1,000 ml @ 50 mls/hr Q20H IV 12/23/17 14:39 01/22/18 14:38 12/23/17 17:38 50 MLS/HR Acetaminophen (Tylenol Tab) 650 mg Q4H PRN PO 12/23/17 14:45 01/22/18 14:44 12/23/17 16:26 650 MG Insulin Aspart (novoLOG ASPART) SLIDING SCALE If C... ACHS SC 12/23/17 16:30 01/22/18 16:29 12/24/17 08:54 12 UNITS Fentanyl (Duragesic Patch) 50 mcg Q72H TD 12/24/17 09:00 01/07/18 08:59 12/24/17 08:02 50 MCG Insulin Detemir (Levemir Flexpen/ FlexTouch) 6 units QPM SQ 12/23/17 21:00 01/22/18 20:59 12/23/17 21:35 6 UNITS Levothyroxine Sodium (Synthroid Tab) 200 mcg DAILYBB PO 12/24/17 06:30 01/23/18 06:59 12/24/17 05:58 200 MCG Senna (Senokot Tab) 8.6 mg DAILY PO 12/24/17 09:00 01/23/18 08:59 12/24/17 08:02 8.6 MG Calcium Carbonate (oS-Nicholas 500 TAB) 1,250 mg DAILY PO 12/24/17 09:00 01/23/18 08:59 12/24/17 08:02 1,250 MG Miscellaneous (Fentanyl Patch Remove & Waste) 1 ea Q3D@0859 N/A 12/24/17 08:59 01/23/18 08:58 12/24/17 08:15 1 EA Miscellaneous Information (Check Fentanyl Patch Placement) 1 ea QS N/A 12/23/17 16:00 01/22/18 15:59 12/24/17 08:01 1 EA Insulin Aspart (novoLOG ASPART) SLIDING SCALE If C... 1630 SC 12/23/17 16:30 12/23/17 19:00 DC 12/23/17 17:42 2 UNITS Insulin Human Regular 6 units/ Syringe 6 ml @ 30 mls/min TODAY@0200 IV 12/24/17 02:00 12/24/17 02:01 DC 12/24/17 02:07 30 MLS/MIN Insulin Detemir (Levemir Flexpen/ FlexTouch) 6 units NOW ONCE SC 12/24/17 08:00 12/24/17 08:01 DC 12/24/17 08:14 6 UNITS Insulin Human Regular 6 unit/ Syringe 6 ml @ 1 mls/min TODAY@0800 IV 12/24/17 08:00 12/24/17 08:05 DC 12/24/17 08:15 1 MLS/MIN Vancomycin HCl 1000 mg/Sodium Chloride 270 ml @ 125 mls/hr TODAY@0915 IV 12/24/17 09:15 12/24/17 11:25 12/24/17 09:38 125 MLS/HR (Anabel Resendiz CRNP) Objective Vital Signs Date Time Temp Pulse Resp B/P (MAP) Pulse Ox O2 Delivery O2 Flow Rate FiO2 12/24/17 08:01 97 Room Air 12/24/17 07:42 36.6 80 16 102/53 (69) 97 Room Air 12/24/17 04:00 Room Air 12/24/17 04:00 36.5 75 18 100/52 (68) 95 Room Air 12/24/17 00:00 36.8 79 20 107/58 (74) 95 Room Air 12/24/17 00:00 Room Air 12/23/17 20:00 Room Air 12/23/17 19:57 37.1 91 20 115/58 (77) 94 Room Air 12/23/17 19:00 37.1 12/23/17 18:00 37.5 12/23/17 16:27 38.3 99 20 144/60 99 Room Air 12/23/17 15:17 38.0 85 18 129/49 95 Room Air 12/23/17 14:30 85 18 129/49 97 Room Air 12/23/17 14:00 82 18 127/54 98 Room Air 12/23/17 13:30 81 18 131/46 100 Room Air 12/23/17 12:29 95 Room Air 12/23/17 11:47 36.8 83 18 106/62 98 Room Air (Anabel Resendiz CRNP) Physical Exam Notes: General: no distress Eyes: normal inspection, PERLL Respiratory: chest non tender, clear to auscultation, normal breath sounds, no respiratory distress, no accessory muscle use Cardiac: regular rate and rhythm, no rub or gallop, no murmur, trace pitting lower extremity edema, no jvd GI/: active bowel sounds, no abd pain or tenderness, soft, non distended Extremities: normal range of motion, normal strength, non tender Neuro/Psych: alert and oriented x 3, normal mood and affect Skin: normal color, dry, reddened lower extremities bilaterally which patient states is baseline (Anabel Resendiz ., SY) Laboratory Results Last 24 Hours Test 12/23/17 12:28 12/23/17 12:30 12/23/17 12:41 12/23/17 13:30 Influenza Type A Antigen Neg for Influ A Influenza Type B Antigen Neg for Influ B White Blood Count 10.69 K/uL Red Blood Count 3.66 M/uL Hemoglobin 10.2 g/dL Hematocrit 31.5 % Mean Corpuscular Volume 86.1 fL Mean Corpuscular Hemoglobin 27.9 pg Mean Corpuscular Hemoglobin Concent 32.4 g/dl Platelet Count 290 K/uL Mean Platelet Volume 9.7 fL Neutrophils (%) (Auto) 90.8 % Lymphocytes (%) (Auto) 4.7 % Monocytes (%) (Auto) 4.1 % Eosinophils (%) (Auto) 0.0 % Basophils (%) (Auto) 0.2 % Neutrophils # (Auto) 9.71 K/uL Lymphocytes # (Auto) 0.50 K/uL Monocytes # (Auto) 0.44 K/uL Eosinophils # (Auto) 0.00 K/uL Basophils # (Auto) 0.02 K/uL RDW Standard Deviation 56.7 fL RDW Coefficient of Variation 18.0 % Immature Granulocyte % (Auto) 0.2 % Immature Granulocyte # (Auto) 0.02 K/uL Prothrombin Time 11.2 SECONDS Prothromb Time International Ratio 1.1 Activated Partial Thromboplast Time 28.3 SECONDS Partial Thromboplastin Ratio 1.1 Sodium Level 131 mmol/L Potassium Level 4.6 mmol/L Chloride Level 99 mmol/L Carbon Dioxide Level 24 mmol/L Anion Gap 8.0 mmol/L Blood Urea Nitrogen 27 mg/dl Creatinine 1.53 mg/dl Estimated GFR () 36.3 Estimated GFR (Non- 31.4 BUN/Creatinine Ratio 17.9 Random Glucose 205 mg/dl Calcium Level 8.3 mg/dl Total Bilirubin 0.7 mg/dl Aspartate Amino Transf (AST/SGOT) 38 U/L Alanine Aminotransferase (ALT/SGPT) 18 U/L Alkaline Phosphatase 270 U/L Pro-B-Type Natriuretic Peptide 9814 pg/ml Total Protein 6.9 gm/dl Albumin 2.3 gm/dl Globulin 4.6 gm/dl Albumin/Globulin Ratio 0.5 Bedside Lactic Acid Venous 1.07 mmol/L Urine Color DK YELLOW Urine Appearance CLEAR Urine pH 5.0 Urine Specific [place] 1.023 Urine Protein TRACE Urine Glucose (UA) NEG Urine Ketones TRACE Urine Occult Blood 1+ Urine Nitrite NEG Urine Bilirubin NEG Urine Urobilinogen NEG Urine Leukocyte Esterase TRACE Urine WBC (Auto) 1-5 /hpf Urine RBC (Auto) 5-10 /hpf Urine Hyaline Casts (Auto) 1-5 /lpf Urine Epithelial Cells (Auto) 10-20 /lpf Urine Bacteria (Auto) NEG Test 12/23/17 16:51 12/23/17 20:21 12/24/17 00:48 12/24/17 02:48 Bedside Glucose 224 mg/dl 321 mg/dl 401 mg/dl 368 mg/dl Test 12/24/17 05:21 12/24/17 07:50 White Blood Count 6.10 K/uL Red Blood Count 3.63 M/uL Hemoglobin 9.9 g/dL Hematocrit 31.2 % Mean Corpuscular Volume 86.0 fL Mean Corpuscular Hemoglobin 27.3 pg Mean Corpuscular Hemoglobin Concent 31.7 g/dl Platelet Count 248 K/uL Mean Platelet Volume 9.5 fL Neutrophils (%) (Auto) 75.7 % Lymphocytes (%) (Auto) 11.0 % Monocytes (%) (Auto) 11.0 % Eosinophils (%) (Auto) 1.5 % Basophils (%) (Auto) 0.5 % Neutrophils # (Auto) 4.62 K/uL Lymphocytes # (Auto) 0.67 K/uL Monocytes # (Auto) 0.67 K/uL Eosinophils # (Auto) 0.09 K/uL Basophils # (Auto) 0.03 K/uL RDW Standard Deviation 58.1 fL RDW Coefficient of Variation 18.2 % Immature Granulocyte % (Auto) 0.3 % Immature Granulocyte # (Auto) 0.02 K/uL Sodium Level 132 mmol/L Potassium Level 3.8 mmol/L Chloride Level 99 mmol/L Carbon Dioxide Level 22 mmol/L Anion Gap 11.0 mmol/L Blood Urea Nitrogen 28 mg/dl Creatinine 1.54 mg/dl Est Creatinine Clear Calc Drug Dose 22.7 ml/min Estimated GFR () 36.0 Estimated GFR (Non- 31.1 BUN/Creatinine Ratio 18.2 Random Glucose 362 mg/dl Estimated Average Glucose 206 mg/dl Hemoglobin A1c 8.8 % Calcium Level 7.7 mg/dl Magnesium Level 1.9 mg/dl Beta-Hydroxybutyric Acid 20.35 mg/dL Procalcitonin 15.75 ng/ml Thyroid Stimulating Hormone (TSH) 3.670 uIu/ml Random Vancomycin Level 12.2 mcg/ml Bedside Glucose 410 mg/dl (Anabel Resendiz, SY) Assessment and Plan This patient is an 82-year-old female with history of 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 intake, and fevers to 101 since last night. She had one episode of nausea and vomiting last night, but denies abdominal pain/diarrhea, denies cough or shortness of breath, denies urinary symptoms. Upon arrival in the ER, she was mildly hypotensive at 106/62 and was given a gentle 500 mL normal saline bolus. Her creatinine was mildly elevated above baseline at 1.58 and she appeared dehydrated. Her chest x-ray was negative, flu swab was negative, urinalysis was negative, and she had no leukocytosis. She was afebrile in our ER, but her daughter who is a nurse measured her temp to 101 at home. She has a history of biliary sepsis, as well as UTI with sepsis in the past, and as above, she is on immunosuppressive therapy for her cancer. She does not have a port in place. Of note, she was recently admitted to [facility] a few weeks ago for chest pain and acute on chronic diastolic CHF. Fevers/weakness/dehydration/acute renal insufficiency/hyponatremia - Flu antigen swab negative, chest x-ray negative for acute findings, UA borderline positive for infection, but may be contaminated. Creatinine continues to be mildly elevated today at 1.5 up from baseline of 1.2-1.3 -Continue gentle IVFs with caution given history of CHF, no evidence of overload at this time -BC growing gram negative bacilli - depending on bacteria identified, will consult GI about biliary stent as source of infection -We will start empiric antibiotics given immunosuppression and recent hospitalization at [facility] --> Zosyn and Vanco would cover for both pulmonary and urinary sources - will adapt abx regimen pending final culture result - rapid flu negative -procalcitonin elevated at 15.75 - Repeat CXR this am unchanged Chronic diastolic CHF/Chronic peripheral edema. Family reports her lower extremity edema is actually much improved from previous -continue gentle IVFs -Holding home Lasix Renal cell carcinoma with mets to bones,lung,pancreas/chronic pain-follows with Dr. Lomeli of [facility] oncology. Hold all chemotherapeutic agents at this time. -Continue fentanyl patch and hydrocodone as needed for breakthrough pain for her bony metastases - Next Opdivo treatment was scheduled for Saturday History of DVT with Coumadin coagulopathy/status post IVC filter-no evidence of DVT at this time DM 2-family requests that her glucose be kept above 150 at all times or else she gets hypoglycemic symptoms - blood sugars have been high running in the 3-400s - pharmacy glycemic consult - Beta hydroxybutyric acid level 20, trace ketones in urine Hypothyroidism-last TSH checked here in 02/2017 was high at 9 -TSH this morning 3.6 -Continue home levothyroxine Prophylaxis-EUSEBIA hose only as per family's request given significant bleeding issues and coagulopathy in the past Disposition-from home, with significant weakness and illness, will need PT/OT consults and possible SNF for rehab placement DNR/DNI (Anabel Resendiz ., SY) Attending Attestation - Pt seen/examined, chart reviewed, care plan d/w SY Resendiz. I agree w/ the pizano components of her documentation. Pt feels a little better today. She denied any abd pain, pain with eating food, nausea, emesis, or diarrhea. No cough or dyspnea. Daughter mentions she had a small sacral ulcer after her stay at [facility] but since her hospital d/c it has resolved. Stasis changes on legs unchanged from baseline. Tele stable overnight. VSS, BPs low normal no fever today gen- looks ill, frail, but nontoxic mouth - MM dry neck - no JVD heart - RRR lungs - minimal rales left base abd - soft, NT, ND, BS+ ext - trace edema, stasis changes both shins sacral region - no open ulcer; stage 1 nonblanchable erythema A/P: 1. gram negative italo septicemia - source - biliary?? gallstones? her biliary stent? urine cx negative doubt the skin as source doubt pulmonary source repeat LFTs tonight pending RUQ u/s ordered [facility] consult in am continue IV broad spectrum abx will need repeat blood cx's tomorrow 2. CKD stage 4 - daily BMP 3. stage 4 renal cell cancer - on opdivo as outpatient 4. uncontrolled T2DM - pharmacy managing, they have placed her on insulin infusion 5. stage 1 sacral ulcer (nonblanchable erythema) - wound care consult requested by family 6. hyponatremia - partially from hyperglycemia, partially from volume depletion ; continue gentle hydration and glycemic control; BMP am 7. DVT proph - SCDs; has IVC filter in place daughter extensively updated at bedside apparently daughter had requested vanco by mouth for c. diff "prophylaxis" Ms. Resendiz spoke to her about this issue; this is not a standard of care and thus vanco deferred for now narrow abx as quickly and safely as possible to reduce chances of c. diff Ashley FONSECA MD (Mike Fonseca MD)
[2017-12-24] MEDS ORDERED: INSULIN HUMAN REGULAR IV BOLUS 1.5 UNIT in SYRINGE 0 ML IV SCH (12:30)
[2017-12-24] MEDS: SODIUM CHLORIDE 0.9% 1000ML 1,000 ML IV SCH (13:05)
[2017-12-24] MEDS: INSULIN REGULAR 250 UNITS in SODIUM CHLORIDE 0.9% 250ML 250 ML IV SCH ×2 (13:07→15:30)
[2017-12-24] MEDS: LACTOBACILLUS ACIDOPHILUS (FLORANEX) TAB PO SCH ×2 (13:10→17:00)
--- NOTE | 2017-12-24 14:16 | Pharmacy Progress Note ---
Pharmacy Abx Initial Consult Date of Service Dec 24, 2017. Pharmacy Dosing Scope Date of Consult: 12/23/17 Consultation requested by: Dr. Roman Pharmacy is consulted to initiate Vancomycin and Zosyn IV dosing therapy, order appropriate labs and adjust drug dose/frequency. Subjective The patient is a 82 year old female admitted on Dec 23, 2017 at 14:44 who presents with fever and overall not feeling well. She has recent admission to [facility] for CHF. She has history of sepsis and urosepsis. She currently has renal carcinoma with bone mets being treated with Opdivo for her cancer. Dr. Roman admitted her and chose to treat her with Zosyn and Vancomycin empirically. In the course of stay one of her blood cultures resulted with Gram negative bacilli. Objective Height (Feet): 5 Height (Inches): 0.00 Weight (Kilograms): 59.200 Vital Signs (Past 12Hrs) Vital Signs Past 12 Hours Date Time Temp Pulse Resp B/P (MAP) Pulse Ox O2 Delivery O2 Flow Rate FiO2 12/24/17 12:10 97 Room Air 12/24/17 11:38 37.1 77 16 90/47 (61) 95 Room Air 96/62 (73) 12/24/17 08:01 97 Room Air 12/24/17 07:42 36.6 80 16 102/53 (69) 97 Room Air 12/24/17 04:00 Room Air 12/24/17 04:00 36.5 75 18 100/52 (68) 95 Room Air Lab Results (24Hrs) Laboratory Tests (24 Hours) Test 12/24/17 05:21 White Blood Count 6.10 K/uL (4.8-10.8) Red Blood Count 3.63 M/uL (4.2-5.4) L Hemoglobin 9.9 g/dL (12.0-16.0) L Hematocrit 31.2 % (37-47) L Mean Corpuscular Volume 86.0 fL (80-100) Mean Corpuscular Hemoglobin 27.3 pg (25-34) Mean Corpuscular Hemoglobin Concent 31.7 g/dl (32-36) L Platelet Count 248 K/uL (130-400) Mean Platelet Volume 9.5 fL (7.4-10.4) Neutrophils (%) (Auto) 75.7 % Lymphocytes (%) (Auto) 11.0 % Monocytes (%) (Auto) 11.0 % Eosinophils (%) (Auto) 1.5 % Basophils (%) (Auto) 0.5 % Neutrophils # (Auto) 4.62 K/uL (1.4-6.5) Lymphocytes # (Auto) 0.67 K/uL (1.2-3.4) L Monocytes # (Auto) 0.67 K/uL (0.11-0.59) H Eosinophils # (Auto) 0.09 K/uL (0-0.5) Basophils # (Auto) 0.03 K/uL (0-0.2) Procalcitonin 15.75 ng/ml (0-0.5) H Micro Results Date/Time Source Procedure Growth Status 12/23/17 12:45 Blood Blood Culture Pending Received 12/23/17 12:30 Blood Blood Culture - Preliminary Gram Negative Bacilli Resulted 12/23/17 18:15 Nasal MRSA DNA Surveillance Screen - Final Specimen Negative for MRSA by DNA Probe Complete 12/23/17 13:30 Urine , Clean Catch Urine Culture Pending Received Risk Factors for Resistance * Hospitalization for 48 hours or more within the past 90 days * Immunocompromised (chronic steroid therapy, chemotherapy, immunomodulators) Assessment & Plan Assessment 82 year old female with possible sepsis Plan Vancomycin/Zosyn for treatment of sepsis Vancomycin IV * Loading dose: 1250mg (25mg/kg) * Maintenance dose: given 1000mg (17mg/kg) IV x 1 today and will check levels daily at this point * Goal trough level : 15-20 mcg/mL * Random level ordered with AM labs on 12/25/17 * Given patients poor renal picture (ie estimated half life of around 30 hours) we will dose her based on random levels Piperacillin/tazobactam * 3.375 g bolus administered over 30 minutes, then 3.375 g IV extended infusion every 8 hours for CrCl greater than 20 mL/min Pharmacy will continue to follow and will adjust dose/frequency as necessary. Thank you.
--- NOTE | 2017-12-24 14:30 | Pharmacy Progress Note ---
Glycemic Control Intl Consult Date of Service Dec 24, 2017. Scope Glycemic Pharmacist consulted by Dr Moreira on 12/23/17 for glycemic control and to write orders per [facility] inpatient glycemic control protocol Objective Weight (Kilograms): 59.200 Accuchecks BSG (last 24hrs): Test 12/23/17 16:51 12/23/17 20:21 12/24/17 00:48 12/24/17 02:48 Bedside Glucose 224 mg/dl (70-90) 321 mg/dl (70-90) 401 mg/dl (70-90) 368 mg/dl (70-90) Test 12/24/17 05:21 12/24/17 07:50 12/24/17 11:53 Random Glucose 362 mg/dl (70-99) Bedside Glucose 410 mg/dl (70-90) 348 mg/dl (70-90) Laboratory Data (last 24hrs) Test 12/24/17 05:21 Anion Gap 11.0 mmol/L BUN/Creatinine Ratio 18.2 Blood Urea Nitrogen 28 mg/dl Creatinine 1.54 mg/dl Hemoglobin A1c 8.8 % Potassium Level 3.8 mmol/L Sodium Level 132 mmol/L White Blood Count 6.10 K/uL Red Blood Count 3.63 M/uL Hemoglobin 9.9 g/dL Hematocrit 31.2 % Mean Corpuscular Volume 86.0 fL Mean Corpuscular Hemoglobin 27.3 pg Mean Corpuscular Hemoglobin Concent 31.7 g/dl Platelet Count 248 K/uL Mean Platelet Volume 9.5 fL Neutrophils (%) (Auto) 75.7 % Lymphocytes (%) (Auto) 11.0 % Monocytes (%) (Auto) 11.0 % Eosinophils (%) (Auto) 1.5 % Basophils (%) (Auto) 0.5 % Neutrophils # (Auto) 4.62 K/uL Lymphocytes # (Auto) 0.67 K/uL Monocytes # (Auto) 0.67 K/uL Eosinophils # (Auto) 0.09 K/uL Basophils # (Auto) 0.03 K/uL HbA1c Test 12/24/17 05:21 Hemoglobin A1c 8.8 % (4.5-5.6) H Recent Pertinent Medications Outpatient Anti-diabetic Regimen: * Levemir 10 units SQ BID The patient is currently receiving: * Basal insulin: Lantus 6 units every 24 hours in the evening * Correctional Insulin: Novolog Correction per scale ACHS Goal Range: Low 150 mg/dL - High 180 mg/dL Correction Factor: 35 mg/dL/unit * Prandial insulin: Per carb ratio of 1 unit per -- grams CHO consumed * IV bolus: 6 units IV x 1 at 0200 Risk Factors for Insulin Resistance: * Infection: Gram negative bacteremia .... on vancomycin and Zosyn * Diet: type 2 diabetic diet Assessment & Plan ASSESSMENT: * Ms Malagon is an 82 y/o F with a PMH of renal cell carcinoma with bone mets on Opdivo, CHF, h/o DVT, and poorly controlled type 2 diabetes ( recommended HbA1C goal range per the Elements of Diabetes Care Scoring Scale is 7.6-8.0%). Her glycemic control is improving slightly. * Ms Malagon was admitted with sepsis which is currently identified as a Gram negative bacteremia. She is currently being treated with Zosyn and vancomycin. The patient's blood sugars were uncontrolled last night ([phone] )... she received 6 units IV. This morning the patient's blood sugar was 368 mg/ dL. She received an additional 6 units IV, 12 units of Novolog (scale was weight -based stress of 2-3), and 6 units of Levemir. During previous hospitalizations , patient requires around 20-30 units per day with 12 units of Levemir. * There was concern about aggressive increasing Levemir with patient who appears to be relatively insulin sensitive. Plus, the patient's blood sugars appear to be driven by infection. Spoke with Anabel Resendiz who is okay with starting insulin infusion currently. Continue Levemir 6 units SQ BID to provide easier transition off of insulin infusion. Have goal range 150-250 as patient feels hypoglycemic below 150 mg/dL. PLAN FOR INPATIENT GLYCEMIC CONTROL: * Starting IV insulin infusion per moderate (moderate/severe) stress protocol * Goal Range 150 - 250 mg/dl * In the critical care setting, continuous IV insulin infusion has been shown to be the best method for achieving glycemic targets. * Basal insulin with LANTUS 6 units SQ BID * Correctional Insulin with NOVOLOG per scale ACHS or Q6hrs while NPO * Goal Range: Low 150 mg/dL - High 250 mg/dL * Correction Factor: -- mg/dL/unit * Nutritional / Prandial insulin per carb ratio of 1 unit per -- grams CHO consumed * Please note that the plan above was derived based on current level of insulin resistance and hospital stress. These recommendations are appropriate for inpatient admission only. Plan of care upon discharge will need to be reassessed to avoid potential outpatient hypo/hyperglycemia. Thank you.
[2017-12-24 17:14] LABS: CALCIUM 7.6 mg/dl (8.5-10.1); CREATININE 1.72 mg/dl (0.60-1.20); POTASSIUM 4.1 mmol/L (3.5-5.1)
[2017-12-24 17:16] LABS: TOTAL PROTEIN 6.1 gm/dl (6.4-8.2)
[2017-12-24] MEDS: INSULIN DETEMIR FLEXPEN/FLEX TOUCH 100 UNITS/ML 3ML SQ SCH (21:02)
[2017-12-25] MEDS: CHECK FENTANYL PATCH PLACEMENT SCH ×4 (00:14→23:45)
[2017-12-25 04:07] VITALS: BP 109/57; PULSE 69; TEMP 36.8; O2SAT 96
[2017-12-25] MEDS: VANCOMYCIN HCL 125 MG/2.5ML SOLN PO SCH ×4 (04:55→22:00)
[2017-12-25] MEDS: RASPBERRY SYRUP 5 ML UDP PO SCH ×4 (04:55→22:00)
[2017-12-25] MEDS: PIPERACILL/TAZOBAC IV 3.375 GM in DEXTROSE 5% 100ML 100 ML IV SCH ×3 (06:19→22:00)
[2017-12-25] MEDS: LEVOTHYROXINE 200 MCG TAB PO SCH (06:22)
[2017-12-25 06:25] LABS: CREATININE 1.65 mg/dl (0.60-1.20)
[2017-12-25 07:21] VITALS: BP 111/61; PULSE 73; TEMP 36.6; O2SAT 95
--- NOTE | 2017-12-25 07:34 | DIAGNOSTIC IMAGING REPORT ---
GALLBLADDER-ABD LIMITED CLINICAL HISTORY: 82 years-old Female presenting with gram negative italo bacteremia; biliary stent. TECHNIQUE: Real-time grayscale and limited color Doppler ultrasound imaging of the abdomen limited to the right upper quadrant was performed. COMPARISON: CT from 09/17/2017 and ultrasound from 05/21/2017. FINDINGS: Examination significantly limited by patient body habitus and poor sonographic windows, limiting the diagnostic sensitivity the exam. Pancreas: Largely obscured due to overlying bowel gas. Liver: Heterogeneous parenchyma with numerous underlying poorly defined lesions. The liver measures 18.7 cm in maximal sagittal dimension. Main portal vein patent with normal directional flow. Biliary: No intrahepatic biliary ductal dilatation. Common bile duct contains a stent and measures up to 7 mm in diameter. Gallbladder: Gallbladder contains sludge and a 23 mm stone. Limited evaluation of the gallbladder. Right kidney: Normal in appearance. No hydronephrosis. Ascites: None. Other: None. IMPRESSION: 1. Common bile duct stent in place. No biliary ductal dilatation. 2. Heterogeneous and enlarged liver secondary to the presence of known underlying hepatic metastatic disease. 3. Cholelithiasis. Limited evaluation of the gallbladder. If there is clinical concern for cholecystitis, subsequent evaluation with nuclear medicine hepatobiliary scan to be considered. Electronically signed by: Boni Szymanski M.D. 12/25/2017 7:33 AM Dictated Date/Time: 12/25/2017 6:55 AM
[2017-12-25] MEDS: SENNA 8.6 MG TAB PO SCH (08:05)
[2017-12-25] MEDS: LACTOBACILLUS ACIDOPHILUS (FLORANEX) TAB PO SCH ×3 (08:06→17:06)
[2017-12-25] MEDS: CALCIUM CARBONATE 1250MG TAB PO SCH (08:06)
[2017-12-25] MEDS: INSULIN ASPART 100 UNITS/ML 3 ML PEN SC SCH ×5 (08:12→23:50)
[2017-12-25] MEDS: SODIUM CHLORIDE 0.9% 1000ML 1,000 ML IV SCH (08:15)
[2017-12-25 09:00] LABS: CALCIUM 7.5 mg/dl (8.5-10.1); CREATININE 1.67 mg/dl (0.60-1.20); POTASSIUM 4.1 mmol/L (3.5-5.1)
[2017-12-25] MEDS ORDERED: INSULIN DETEMIR FLEXPEN/FLEX TOUCH 100 UNITS/ML 3ML SC SCH (09:00)
[2017-12-25 11:55] VITALS: BP 122/63; PULSE 71; TEMP 36.6; O2SAT 99
[2017-12-25] MEDS ORDERED: INSULIN DETEMIR FLEXPEN/FLEX TOUCH 100 UNITS/ML 3ML SC ONE (12:00)
--- NOTE | 2017-12-25 12:35 | Gastrointestinal Consultation ---
Gastrointestinal Consultation Date of Consultation: Dec 25, 2017 Attending Physician: Radha Roman Consulting Physician: Taylor Hernandez Reason for Consultation: Gram negative rods in blood cx; hx of biliary stent. History of Present Illness Patient is a 82 year old female with hx of renal cell carcinoma w bone/lung/ pancreas/liver mets currently on Opdivo, CKD III, unilateral kidney, hx of DVT w IVC filter placement, biliary obstruction w stent placement (bare metal Geoff Cook placed in 2014), DM II, CHF, hypothyroidism, here w generalized weakness, decreased PO intake, febrile up to 101, n/v. In ED was noted to be mildly hypotensive w BP of 106/62, improved w small amt of bolus. Cr 1.5 above baseline (1.3-1.4). Gallbladder u/s showed heterogenous and enlarged liver likely due to underlying metatases, gallstone w mild sludge but no moraima signs of cholecystitis, biliary stent in place, no biliary ductal dilation. Her LFTs were quite normal except mild alk phos elevation in 200s but this seems to be her baseline. Infectious workup negative for pneumonia, flue, UA. She did have 1 /2 + blood cx gram negative bacilli, urine culture negative, and Cdiff was positive. Pt does have prior hx of Cdiff infections >3x. She hasn't had any loose stools until yesterday per her daughter's report and that was after antibx was started and also after she was given Senna. Pt currently reports no CP, SOB, abd pain, n/v. Past Medical/Surgical History Medical Problems: (1) Acute renal failure Status: Acute (2) Altered mental status Status: Acute (3) Anemia Status: Acute (4) Dehydration Status: Acute (5) Intestinal infection, enteritis due to small round viruses (SRVS) Status: Acute (6) Leukocytosis Status: Acute (7) Pneumonia Status: Acute (8) Sepsis Status: Acute (9) Sepsis Status: Acute (10) Systemic inflammatory response syndrome Status: Acute (11) UTI (urinary tract infection) Status: Acute (12) UTI (urinary tract infection) Status: Acute (13) UTI (urinary tract infection) Status: Acute (14) Weakness Status: Acute Past Medical History: See above Past Surgical History: L nephrectomy Csection IVC filter Family History Diabetes mellitus Heart disease Hypertension Social History Smoking Status: Never Smoker Alcohol Use: none Drug Use: none Marital Status: Housing Status: lives with family Occupation Status: retired Allergies Coded Allergies: Adhesives (Verified Allergy, Mild, LOCAL SKIN IRRITATION, BLISTERS, ) Uncoded Allergies: ANTICOAGULANTS (Adverse Reaction, Intermediate, INCREASED INR -PER FAMILY, 05/20/17) Current Medications Home Meds and Scripts Medications Dose Route/Sig Max Daily Dose Days Date Category Dose Instructions Tylenol (Acetaminophen) 500 Mg Tab 1,000 Mg PO UD PRN 12/23/17 Reported Aranesp Albumin Free (Darbepoetin Eddie-Polysorbate 8) 10 Mcg/0.4 Ml Inj 12/23/17 Reported Duragesic (Fentanyl) 50 Mcg Tdsy 50 Mcg TD [id number] 30 09/20/17 Rx [place] 7.5MG/325MG (Acetaminophen/Hydrocodone Bitart) Tab 1 Tab PO Q4 PRN 30 09/20/17 Rx Take 1 tablet by mouth q4h for severe pain. Senokot (Senna) 8.6 Mg Tab 1 Tab PO DAILY 30 09/20/17 Rx Cyanocobalamin 1 Pow Pow 1 Tab PO DAILY 09/17/17 Reported CHEWABLE Calcium (Calcium Carbonate) 500 Mg Chw 500 Mg PO DAILY 09/17/17 Reported Miralax (Polyethylene Glycol 3350) 1 Pow Pow 17 Gm PO DAILY PRN 05/20/17 Reported Lasix (Furosemide) 20 Mg Tab 20 Mg PO 4XWK PRN 05/20/17 Reported tues thurs sat sun Culturelle (Lactobacillus-Inulin) 1 Cap Cap 1 Cap PO DAILY 03/21/17 Reported Opdivo (Nivolumab) Unknown Strength Inj 1 Dose IV [id number] 03/21/17 Reported Zofran (Ondansetron HCl) 8 Mg Tab 8 Mg PO Q8 PRN 03/21/17 Reported Levothyroxine Sodium 200 Mcg Tab 200 Mcg PO DAILY 03/21/17 Reported Levemir Flextouch (Insulin Detemir) 100 Unit/Ml Inj 10 Units SQ AMPM 02/07/17 Reported Xgeva (Denosumab) 120 Mg/1.7 Ml Inj 1 Dose SQ MONTHLY 03/16/16 Reported Review of Systems Constitutional: + see HPI, + fever, No chills Respiratory: No cough, No shortness of breath Cardiac: No chest pain Abdomen: + diarrhea, No pain, No nausea, No vomiting Skin: No rash, No itch, No jaundice Physical Exam Date Time Temp Pulse Resp B/P (MAP) Pulse Ox O2 Delivery O2 Flow Rate FiO2 12/25/17 12:00 Room Air 12/25/17 11:55 36.6 71 18 122/63 (82) 99 Room Air 12/25/17 07:45 Room Air 12/25/17 07:21 36.6 73 16 111/61 (78) 95 12/25/17 04:07 36.8 69 18 109/57 (74) 96 Room Air 12/25/17 04:00 Room Air 12/25/17 00:00 Room Air 12/24/17 23:55 36.9 76 20 111/53 (72) 98 Room Air 12/24/17 20:00 Room Air 12/24/17 19:46 36.9 75 18 103/51 (68) 96 Room Air 12/24/17 16:02 36.8 76 16 100/50 (67) 94 Room Air 12/24/17 16:00 Room Air General Appearance: WD/WN, no apparent distress Eyes: normal inspection, PERRL, EOMI Neck: supple, no JVD, trachea midline Respiratory/Chest: normal breath sounds, no respiratory distress, no accessory muscle use Cardiovascular: regular rate, rhythm, no gallop, no murmur Abdomen: normal bowel sounds, non tender, soft Extremities: normal inspection, no pedal edema, no calf tenderness Neurologic/Psych: alert, normal mood/affect, oriented x 3 Skin: normal color, no jaundice, no rash Laboratory Results Last 24 Hours Test 12/24/17 14:28 12/24/17 15:30 12/24/17 16:34 12/24/17 17:31 Bedside Glucose 326 mg/dl 361 mg/dl 317 mg/dl 309 mg/dl Sodium Level 132 mmol/L Potassium Level 4.1 mmol/L Chloride Level 100 mmol/L Carbon Dioxide Level 24 mmol/L Anion Gap 8.0 mmol/L Blood Urea Nitrogen 35 mg/dl Creatinine 1.72 mg/dl Est Creatinine Clear Calc Drug Dose 20.3 ml/min Estimated GFR () 31.5 Estimated GFR (Non- 27.2 BUN/Creatinine Ratio 20.5 Random Glucose 304 mg/dl Calcium Level 7.6 mg/dl Total Bilirubin 0.4 mg/dl Aspartate Amino Transf (AST/SGOT) 19 U/L Alanine Aminotransferase (ALT/SGPT) 17 U/L Alkaline Phosphatase 219 U/L Total Protein 6.1 gm/dl Albumin 2.0 gm/dl Globulin 4.1 gm/dl Albumin/Globulin Ratio 0.5 Beta-Hydroxybutyric Acid 0.90 mg/dL Test 12/24/17 18:30 12/24/17 20:27 12/24/17 21:32 12/24/17 23:01 Bedside Glucose 263 mg/dl 210 mg/dl 188 mg/dl 153 mg/dl Test 12/25/17 01:04 12/25/17 04:53 12/25/17 05:24 12/25/17 05:31 Bedside Glucose 159 mg/dl 94 mg/dl 143 mg/dl Creatinine 1.65 mg/dl Est Creatinine Clear Calc Drug Dose 21.2 ml/min Estimated GFR () 33.2 Estimated GFR (Non- 28.6 Random Vancomycin Level 19.6 mcg/ml Test 12/25/17 05:43 12/25/17 06:02 12/25/17 06:18 12/25/17 06:38 Bedside Glucose 126 mg/dl 138 mg/dl 148 mg/dl 164 mg/dl Test 12/25/17 07:37 12/25/17 07:58 12/25/17 11:23 Bedside Glucose 208 mg/dl 272 mg/dl Sodium Level 134 mmol/L Potassium Level 4.1 mmol/L Chloride Level 103 mmol/L Carbon Dioxide Level 22 mmol/L Anion Gap 10.0 mmol/L Blood Urea Nitrogen 34 mg/dl Creatinine 1.67 mg/dl Est Creatinine Clear Calc Drug Dose 20.7 ml/min Estimated GFR () 32.7 Estimated GFR (Non- 28.2 BUN/Creatinine Ratio 20.5 Random Glucose 214 mg/dl Calcium Level 7.5 mg/dl Impression Patient is a 82 year old female admitted with fever, decreased PO intake and weakness. Hx of Cdiff infections, tested positive at this admission but she hasn 't had diarrhea until yesterday after given Senna and antibiotics per her dght' s report. She also had 1/2 blood cx growing gram negative bacilli. Urine culture negative. 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 LFTs grossly normal w exception of alk phos elevation but at baseline, and gallbladder u/s showed biliary stent still present. Less likely has a stent occlusion, ? liver abscesses Plan - Continue Zosyn and Vancomycin for now - Awaiting repeat blood culture - Pt refused MRI as she's claustrophobic and also doesn't want Ativan for procedure premed (had adverse reaction). Will obtain CT abd/pelvis w/o contrast (Cr 1.5) to eval for stent patency and to r/o liver abscesses. -> stent patent, no liver abscesses noted. mild perirectal thickening but not significant. Doubt that her biliary stent is the source of her infections. - May consider ID consult and/or obtain Galium scan (to locate abscess) should she come in w bacteremia/sepsis again . - If LFTs increased, and she's jaundiced, will consider declogging of stent for suspected blockage. Otherwise no further GI intervention at this time. I performed a history and physical examination of the patient, including specifically on physical exam - no abdominal tenderness. I have discussed the patient's management with SY Mason. Please refer to the nurse practitioner's note for the documented findings and plan of care. Patient with metastatic renal cancer to liver and panc s/p uncovered metal stent placement in 2015, admitted with fever and Blood Cx is positive for GNB. GI called for ? stent related sepsis. Her liver enzymes are not suggestive of cholangitis or biliary obstruction and her imaging showed normal gallbladder. I doubt she has biliary sepsis. Recommend ID consult, will consider Endoscopic evaluation only if liver enzymes changes given her advanced illness.
--- NOTE | 2017-12-25 13:04 | DIAGNOSTIC IMAGING REPORT ---
CT SCAN OF THE ABDOMEN AND PELVIS WITHOUT IV CONTRAST CLINICAL HISTORY: Generalized abdominal pain. Biliary stent in place. Clinical concern for abscess. History of metastatic renal cell carcinoma. COMPARISON STUDY: Abdominal CT dated 09/17/2017. TECHNIQUE: CT scan of the abdomen and pelvis is performed from the lung bases to the proximal femora. Images are reviewed in the axial, sagittal, and coronal planes. IV contrast was not administered for this examination as per the referring clinician. Note that the examination was performed in significantly suboptimal fashion without oral and IV contrast. The examination is also degraded by motion artifact, and by streak artifact from the patient's left arm which could not be elevated above the abdomen. A dose lowering technique was utilized adhering to the principles of ALARA. CT DOSE: 988.19 mGycm FINDINGS: Lung bases: The heart is enlarged and there is trace pericardial effusion. The coronary arteries an aortic valve leaflets are calcified. There are trace pleural effusions with dependent atelectasis. A 2.7 cm nodule is again seen at the left lung base on image #31. Liver: The unenhanced liver is enlarged, measuring 24.3 cm in length. A common bile duct drain is in place. There is pneumobilia suggesting patency of the stent. Only mild intrahepatic biliary ductal dilatation is identified. Scattered calcified hepatic granulomas are observed. The liver is infiltrated by too numerous to count low-attenuation lesions, overall similar in size and distribution to the 09/17/2017 examination. The largest lesions measure at least 5 cm. The appearance is typical for multifocal hepatic metastatic disease. No gas and fluid containing collection is clearly identified in the liver to suggest abscess. Gallbladder: There are calcified gallstones. There is no clear CT evidence of acute cholecystitis. Spleen: Normal in size and attenuation. Pancreas: A 5.1 cm lesion is suggested in the pancreatic head on image #181. An additional 3.4 cm lesion is suggested in the pancreatic tail on image #104. These lesions likely represent metastatic disease. Adrenal glands: The right adrenal gland is normal in appearance. The left adrenal gland is not well-visualized.. Kidneys: The unenhanced right kidney demonstrates cortical atrophy and is without hydronephrosis. The left kidney is surgically absent. There are no renal calculi identified. There is no evidence of contour deforming renal mass lesion. No soft tissue lesion is suggested in the left renal fossa. Abdominal vasculature: The abdominal aorta is normal in course and caliber noting advanced atherosclerotic calcification. An infrarenal IVC filter is in place. Bowel: No bowel obstruction is seen. The appendix is not identified. Mild rectal wall thickening suggested. There is perirectal stranding. Peritoneum: There is no intraperitoneal free air or abdominal ascites. Lymphadenopathy: None. Pelvic viscera: The bladder is decompressed and not well evaluated. The uterus and adnexa are normal as visualized. Skeletal structures: The skeletal structures are osteopenic. There is moderate lumbosacral spondylosis. A large hemangioma is seen in the body of L5. A large expansile destructive bony lesion with pathologic fracture is seen involving the right ilium. There are healed pubic ring fractures. Advanced sclerotic change is noted in the pubic symphysis. Soft tissues: There is body wall edema. IMPRESSION: 1. Significantly suboptimal examination without oral and IV contrast. The examination is also compromised by streak and motion. 2. Hepatomegaly with evidence of diffuse/multifocal hepatic metastatic disease has not appreciably changed in appearance as compared to 09/17/2017. 3. A biliary stent is in place. Pneumobilia suggests patency of the stent. 4. There is no gas and fluid containing collection in the liver to suggest abscess. The sterility of the hepatic lesions cannot be assessed by imaging. 5. Osseous metastatic disease, left lower lobe pulmonary metastatic disease, and presumed pancreatic metastases are similar in appearance to previous. 6. Cardiomegaly and small pleural effusions. 7. Mild rectal wall thickening is questioned with perirectal stranding. Correlate clinically for evidence of a mild proctitis. 8. Cholelithiasis. 9. Additional findings as above. Electronically signed by: Shadi Echols M.D. 12/25/2017 1:03 PM Dictated Date/Time: 12/25/2017 12:48 PM
--- NOTE | 2017-12-25 14:10 | Pharmacy Progress Note ---
Pharmacy Glycemic Short Note 2 Date of Service Dec 25, 2017. OUTPATIENT ANTIDIABETIC REGIMEN: * Levemir 10 units SQ BID ASSESSMENT: * Ms Malagon is an 82 y/o F with a PMH of renal cell carcinoma with bone mets on Opdivo, CHF, h/o DVT, and poorly controlled type 2 diabetes ( recommended HbA1C goal range per the Elements of Diabetes Care Scoring Scale is 7.6-8.0%). Her glycemic control is improving slightly. * Ms Malagon was admitted with sepsis which is currently identified as a Gram negative bacteremia. She is currently being treated with Zosyn and vancomycin. Yesterday the patient's blood sugars were uncontrolled. She was started on an insulin infusion around 12 PM. Levemir was continued. The patient received 27 units of SQ insulin (12 units of basal) plus 27 units of insulin via infusion from 4700-4326. The drip was discontinued around 0500. The patient' s blood sugar was 208 mg/dL this morning which is reasonable for this patient who is hypoglycemic below 150 mg/dL. * The patient does not have a large appetite. Lunch blood sugar is 272 mg/dL. Since the patient has only received part of her home Levemir dose, gave additional dose to make 10 units today. Tightened Novolog to try to prevent re- initiation of insulin infusion. Increased evening Levemir dose to 10 units tonight. PLAN FOR INPATIENT GLYCEMIC CONTROL: * Basal insulin * Levemir 10 units SQ BID * Bolus insulin * NovoLog per scale ACHS or Q6hrs while NPO * Goal Range: Low 140 mg/dL - High 180 mg/dL * Correction Factor: 25 mg/dL/unit * Nutritional / Prandial insulin per carb ratio of 1 unit per 9 grams CHO consumed PLAN FOR DISCHARGE: * Patient's glycemic control is improving slightly but still not at goal. Continue to work with family and physician to help patient achieve better control.
[2017-12-25 15:19] VITALS: BP 133/63; PULSE 75; TEMP 36.8; O2SAT 97
[2017-12-25] MEDS: INSULIN DETEMIR FLEXPEN/FLEX TOUCH 100 UNITS/ML 3ML SC SCH (21:00)
--- NOTE | 2017-12-25 22:23 | Hospitalist Progress Note ---
Hospitalist Progress Note Date of Service Dec 25, 2017. Subjective Pt evaluation today including: conversation w/ patient, conversation w/ family Pt feels much improved today, eating, was out of bed and ambulating, remains afebrile. Denies cough, CP, SOB, or abd pain. Had 1 stool today, 3 loose stools yesterday. Tested positive for C. diff overnight. Tele with NSR, and some ST to low 100s, PVCs All Other Systems: Reviewed and Negative Objective Vital Signs Date Time Temp Pulse Resp B/P (MAP) Pulse Ox O2 Delivery O2 Flow Rate FiO2 12/25/17 16:00 Room Air 12/25/17 15:19 36.8 75 16 133/63 (86) 97 12/25/17 12:00 Room Air 12/25/17 11:55 36.6 71 18 122/63 (82) 99 Room Air 12/25/17 07:45 Room Air 12/25/17 07:21 36.6 73 16 111/61 (78) 95 12/25/17 04:07 36.8 69 18 109/57 (74) 96 Room Air 12/25/17 04:00 Room Air 12/25/17 00:00 Room Air 12/24/17 23:55 36.9 76 20 111/53 (72) 98 Room Air Physical Exam General Appearance: no apparent distress, + thin Eyes: normal inspection, sclerae normal ENT: hearing grossly normal Neck: trachea midline Respiratory/Chest: lungs clear, normal breath sounds, no respiratory distress, no accessory muscle use Cardiovascular: regular rate, rhythm, no edema, no gallop, no murmur Abdomen: normal bowel sounds Extremities: non-tender, + swelling (trace pitting edema legs to knees bilat, imporved from previous) Neurologic/Psychiatric: alert, normal mood/affect, oriented x 3 Skin: warm/dry, + pertinent finding (chronic venous stasis changes legs bilat) Laboratory Results Last 24 Hours Test 12/24/17 23:01 12/25/17 01:04 12/25/17 04:53 12/25/17 05:24 Bedside Glucose 153 mg/dl 159 mg/dl 94 mg/dl 143 mg/dl Test 12/25/17 05:31 12/25/17 05:43 12/25/17 06:02 12/25/17 06:18 Creatinine 1.65 mg/dl Est Creatinine Clear Calc Drug Dose 21.2 ml/min Estimated GFR () 33.2 Estimated GFR (Non- 28.6 Random Vancomycin Level 19.6 mcg/ml Bedside Glucose 126 mg/dl 138 mg/dl 148 mg/dl Test 12/25/17 06:38 12/25/17 07:37 12/25/17 07:58 12/25/17 11:23 Bedside Glucose 164 mg/dl 208 mg/dl 272 mg/dl Sodium Level 134 mmol/L Potassium Level 4.1 mmol/L Chloride Level 103 mmol/L Carbon Dioxide Level 22 mmol/L Anion Gap 10.0 mmol/L Blood Urea Nitrogen 34 mg/dl Creatinine 1.67 mg/dl Est Creatinine Clear Calc Drug Dose 20.7 ml/min Estimated GFR () 32.7 Estimated GFR (Non- 28.2 BUN/Creatinine Ratio 20.5 Random Glucose 214 mg/dl Calcium Level 7.5 mg/dl Test 12/25/17 13:23 12/25/17 16:26 12/25/17 20:26 Bedside Glucose 235 mg/dl 285 mg/dl 325 mg/dl Assessment and Plan This patient is an 82-year-old female with history of metastatic renal cell carcinoma with metastases to the bones/lung/pancreas/liver currently on Opdivo, CKD stage III with unilateral kidney, history of DVT now status post IVC filter , 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 intake, and fever. She had one episode of nausea and vomiting the night prior to admission, but denies abdominal pain/diarrhea, denies cough or shortness of breath, denies urinary symptoms. Upon arrival in the ER, she was mildly hypotensive at 106/62 and was given a gentle 500 mL normal saline bolus. Her creatinine was mildly elevated above baseline at 1.58 and she appeared dehydrated. Her chest x-ray was negative, flu swab was negative, urinalysis was negative, and she had no leukocytosis. She was afebrile in our ER, but her daughter who is a nurse measured her temp to 101 at home. She spiked a fever shortly after admission. She has a history of biliary sepsis, as well as UTI with sepsis in the past, and as above, she is on immunosuppressive therapy for her cancer. She does not have a port in place. Of note, she was recently admitted to [facility] a few weeks ago for chest pain and acute on chronic diastolic CHF. Fevers/weakness/dehydration/acute renal insufficiency/hyponatremia/Septicemia- with GNRs in BCxs 1/2 sets, no clear source of infection. CT abd/pel without evidence of biliary obstruction or abscess. She has a h/o UTIs, but no symptoms otherwise i.e no abdominal pain or tenderness, no urinary symptoms, no respiratory symptoms. Ur cx no growth Flu antigen swab negative, chest x-ray negative for acute findings x 2 Creatinine mildly elevated at 1.58 on admission up from baseline of 1.2-1.3, hand molder and caster now up to 1.6 PCT elevated at 15 Possible translocation of bacteria across gut or biliary tract? -Continue gentle IVFs with caution given history of CHF, however she appeared significantly dehydrated on exam on admission, now improved -Follow BCxs for final ID -repeat BCxs today to ensure now sterile -continue Zosyn until BCx ID back, can discontinue Vanco -Consult ID for further recommendations on source of infection and course of treatment -Appreciate GI consultation, but does not appear to have GI infection at this time Clostridium difficile diarrhea--> had no abd pain or diarrhea prior to admission. Had 3 loose stools here after received senna, tested positive for C. diff stool antigen and has tested positive in the past with and without diarrhea as per daughter. Could possibly be a carrier of C. diff, but difficult to sort out given recent abx use, loose stools in setting of laxative use. -will continue treatment with po Vanco for 14 day course Chronic diastolic CHF/Chronic peripheral edema-dehydrated on admission, improved but hand molder and caster still increased from baseline. Family reports her lower extremity edema is actually much improved from previous -continue gentle IVFs -Holding home Lasix Renal cell carcinoma with mets to bones,lung,pancreas, liver/chronic pain- [facility] abd/pelvis here with numerous liver, bony, pancreas, and lung mets all stable from previous on imaging - Hold all chemotherapeutic agents at this time-was due for Opdivo this Saturday -Continue fentanyl patch and hydrocodone as needed for breakthrough pain for her bony metastases History of DVT with Coumadin coagulopathy/status post IVC filter-no evidence of DVT at this time DM 2-family requested that her glucose be kept above 150 at all times or else she gets hypoglycemic symptoms--> then glucose was in 400s and on insulin gtt-- > now Pharmacy managing and back on basal/bolus regimen with continued hyperglycemia. HgbA1C 8.8% here -Accu-Cheks -Continue basal -bolus regimen as per Pharmacy Hypothyroidism-TSH here is 3.6 -Continue home levothyroxine dose Prophylaxis-EUSEBIA hose only as per family's request given significant bleeding issues and coagulopathy in the past Disposition-from home,PT/OT recommend return home--> possibly in 1-2 days DNR/DNI
[2017-12-25 23:24] VITALS: BP 146/66; PULSE 85; TEMP 36.8; O2SAT 97
[2017-12-26] VITALS (8 sets, daily range): BP systolic 125–148; BP diastolic 62–69; PULSE 72–87; TEMP 36.6–37.1; O2SAT 95–97; Ht 152.4 cm; Wt 58.0 kg
[2017-12-26] MEDS: SODIUM CHLORIDE 0.9% 1000ML 1,000 ML IV SCH ×2 (01:58→22:03)
[2017-12-26] MEDS ORDERED: INSULIN ASPART 100 UNITS/ML 3 ML PEN SC SCH (02:00)
[2017-12-26] MEDS: INSULIN ASPART 100 UNITS/ML 3 ML PEN SC SCH ×5 (03:42→20:53)
[2017-12-26] MEDS: RASPBERRY SYRUP 5 ML UDP PO SCH ×4 (03:44→21:58)
[2017-12-26] MEDS: VANCOMYCIN HCL 125 MG/2.5ML SOLN PO SCH ×4 (03:44→21:58)
[2017-12-26] MEDS: LEVOTHYROXINE 200 MCG TAB PO SCH (05:49)
[2017-12-26] MEDS: PIPERACILL/TAZOBAC IV 3.375 GM in DEXTROSE 5% 100ML 100 ML IV SCH (05:49)
[2017-12-26 06:33] LABS: BASO ABS # 0.05 K/uL (0-0.2); EOS % 2.9 %; EOS ABS # 0.15 K/uL (0-0.5); HEMATOCRIT 27.9 % (37-47); HEMOGLOBIN 8.9 g/dL (12.0-16.0); IG# 0.01 K/uL (0.00-0.02); LYMPH % 21.9 %; LYMPH ABS # 1.13 K/uL (1.2-3.4); MEAN CELL VOLUME 85.3 fL (80-100); MEAN CORPUSCULAR HEMOGLOBIN 27.2 pg (25-34); MEAN CORPUSCULAR HGB CONC 31.9 g/dl (32-36); MEAN PLATELET VOLUME 9.2 fL (7.4-10.4); MONO % 15.9 %; MONO ABS # 0.82 K/uL (0.11-0.59); NEUT % 58.1 %; NEUT ABS # 3.01 K/uL (1.4-6.5); PLATELET COUNT 258 K/uL (130-400); RED CELL DISTRIBUTION WIDTH CV 18.2 % (11.5-14.5); RED CELL DISTRIBUTION WIDTH SD 57.1 fL (36.4-46.3); WHITE BLOOD COUNT 5.17 K/uL (4.8-10.8)
[2017-12-26 06:59] LABS: ALBUMIN 1.8 gm/dl (3.4-5.0); CALCIUM 7.2 mg/dl (8.5-10.1); CREATININE 1.66 mg/dl (0.60-1.20); POTASSIUM 3.8 mmol/L (3.5-5.1)
[2017-12-26] MEDS: SENNA 8.6 MG TAB PO SCH (08:21)
[2017-12-26] MEDS: LACTOBACILLUS ACIDOPHILUS (FLORANEX) TAB PO SCH ×3 (08:22→16:38)
[2017-12-26] MEDS: CALCIUM CARBONATE 1250MG TAB PO SCH (08:22)
[2017-12-26] MEDS: CHECK FENTANYL PATCH PLACEMENT SCH ×2 (08:22→16:00)
[2017-12-26] MEDS: INSULIN DETEMIR FLEXPEN/FLEX TOUCH 100 UNITS/ML 3ML SC SCH ×3 (08:27→22:11)
--- NOTE | 2017-12-26 10:28 | Medical Consult ---
Consultation Date of Consultation: Dec 26, 2017. 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 She subsequently has developed diarrhea without significant worsening abdominal pain. Has been found to have positive blood cultures for Serratia, and stool for C diff PCR positive. Patient currently being treated with IV Zosyn and vancomycin orally and has improved with decrease in diarrhea, and apparent resolution of fever. Follow-up blood cultures are negative to date. Patient had CT scan of the abdomen, read by me, which shows no obvious biliary pathology , multiple liver metastases, and possible proctitis. Past Medical/Surgical History Medical Problems: (1) Acute renal failure Status: Acute (2) Altered mental status Status: Acute (3) Anemia Status: Acute (4) Dehydration Status: Acute (5) Intestinal infection, enteritis due to small round viruses (SRVS) Status: Acute (6) Leukocytosis Status: Acute (7) Pneumonia Status: Acute (8) Sepsis Status: Acute (9) Sepsis Status: Acute (10) Systemic inflammatory response syndrome Status: Acute (11) UTI (urinary tract infection) Status: Acute (12) UTI (urinary tract infection) Status: Acute (13) UTI (urinary tract infection) Status: Acute (14) Weakness Status: Acute Medical Problems: (1) Diabetes (2) DVT (deep venous thrombosis) (3) Hypertension (4) Hypocalcemia (5) Hypotension (6) Metastatic renal cell carcinoma to bone (7) Metastatic renal cell carcinoma to lung (8) Secondary hyperparathyroidism (9) Sepsis Family History Diabetes mellitus Heart disease Hypertension Social History Smoking Status: Never Smoker Alcohol Use: none Drug Use: none Marital Status: Housing Status: lives with family Occupation Status: retired Allergies Coded Allergies: Adhesives (Verified Allergy, Mild, LOCAL SKIN IRRITATION, BLISTERS, ) Uncoded Allergies: ANTICOAGULANTS (Adverse Reaction, Intermediate, INCREASED INR -PER FAMILY, 05/20/17) Current Inpatient Medications Current Inpatient Medications Medications (Trade) Dose Ordered Sig/Suleiman Route Start Time Stop Time Status Last Admin Dose Admin Piperacillin Sod/ Tazobactam Sod 3.375 gm/Dextrose 115 ml @ 28.75 mls/ hr Q8H IV 12/23/17 22:00 12/30/17 21:59 12/26/17 05:49 28.75 MLS/HR Miscellaneous Information (Consult) 1 ea UD PRN N/A 12/23/17 14:45 01/22/18 14:44 Sodium Chloride 1,000 ml @ 50 mls/hr Q20H IV 12/23/17 14:39 01/22/18 14:38 12/26/17 01:58 50 MLS/HR Acetaminophen (Tylenol Tab) 650 mg Q4H PRN PO 12/23/17 14:45 01/22/18 14:44 12/23/17 16:26 650 MG Ondansetron HCl (Zofran Inj) 4 mg Q6H PRN IV 12/23/17 14:45 01/22/18 14:44 Glucose (Glucose 40% Gel) 15-30 GRAMS 15 GRAMS... UD PRN PO 12/23/17 14:45 01/22/18 14:44 Glucose (Glucose Chew Tab) 4-8 Tablets 4 Tabl... UD PRN PO 12/23/17 14:45 01/22/18 14:44 Dextrose (Dextrose 50% 50ML Syringe) 25-50ML OF 50% DW IV FOR... UD PRN IV 12/23/17 14:45 01/22/18 14:44 12/25/17 05:07 25 ML Glucagon (Glucagon Inj) 1 mg UD PRN SQ 12/23/17 14:45 01/22/18 14:44 Fentanyl (Duragesic Patch) 50 mcg Q72H TD 12/24/17 09:00 01/07/18 08:59 12/24/17 08:02 50 MCG Acetaminophen/ Hydrocodone Bitart ([place] 7.5/325 Tab) 1 tab Q4 PRN PO 12/23/17 14:45 01/06/18 14:44 Levothyroxine Sodium (Synthroid Tab) 200 mcg DAILYBB PO 12/24/17 06:30 01/23/18 06:59 12/26/17 05:49 200 MCG Senna (Senokot Tab) 8.6 mg DAILY PO 12/24/17 09:00 01/23/18 08:59 12/24/17 08:02 8.6 MG Calcium Carbonate (oS-Nicholas 500 TAB) 1,250 mg DAILY PO 12/24/17 09:00 01/23/18 08:59 12/26/17 08:22 1,250 MG Miscellaneous (Fentanyl Patch Remove & Waste) 1 ea Q3D@0859 N/A 12/24/17 08:59 01/23/18 08:58 12/24/17 08:15 1 EA Miscellaneous Information (Check Fentanyl Patch Placement) 1 ea QS N/A 12/23/17 16:00 01/22/18 15:59 12/26/17 08:22 1 EA Acetaminophen 100 ml @ 400 mls/hr Q8H PRN IV 12/23/17 20:15 01/22/18 20:14 Miscellaneous Information (Consult Glycemic Management Pharmacy) 1 ea UD PRN N/A 12/24/17 01:45 01/23/18 01:44 Lactobacillus Acidophilus (Floranex Tab) 4 tab TIDM PO 12/24/17 12:00 01/23/18 11:59 12/26/17 08:22 4 TAB Vancomycin HCl (Vancomycin Oral Soln) 125 mg Q6H PO 12/25/17 04:00 01/08/18 03:59 12/26/17 09:22 125 MG Raspberry (Raspberry Syrup 5ml Cup) 5 ml Q6H PO 12/25/17 04:00 01/08/18 03:59 12/26/17 09:22 5 ML Insulin Aspart (novoLOG ASPART) SLIDING SCALE ACHS SC 12/25/17 08:00 01/24/18 07:59 12/26/17 08:27 6 UNITS Insulin Detemir (Levemir Flexpen/ FlexTouch) SEE PROTOCOL TEXT BID SC 12/26/17 21:00 01/25/18 20:59 Review of Systems Constitutional: + fever, + chills, + weakness, + fatigue Eyes: No problem reported ENT: No problem reported Respiratory: No problem reported Cardiovascular: No problem reported Abdomen: + nausea, + vomiting, + diarrhea Musculoskeletal: No problem reported Genitourinary - Female: No problem reported Neurologic: No problem reported Psychiatric: No problem reported Endocrine: No problem reported Hematologic / Lymphatic: No problem reported Integumentary: No problem reported Allergic / Immunologic: No problem reported Physical Exam Date Time Temp Pulse Resp B/P (MAP) Pulse Ox O2 Delivery O2 Flow Rate FiO2 12/26/17 07:45 Room Air 12/26/17 07:26 36.8 77 16 125/63 (83) 96 12/26/17 04:22 36.6 77 16 147/66 (93) 97 Room Air 12/26/17 04:00 Room Air 12/26/17 02:13 36.7 82 16 127/62 (83) Room Air 12/25/17 23:59 Room Air 12/25/17 23:24 36.8 85 18 146/66 (92) 97 Room Air 12/25/17 20:00 Room Air 12/25/17 16:00 Room Air 12/25/17 15:19 36.8 75 16 133/63 (86) 97 12/25/17 12:00 Room Air 12/25/17 11:55 36.6 71 18 122/63 (82) 99 Room Air General Appearance: no apparent distress, + thin, + pertinent finding ( Chronically ill-appearing) Head: normocephalic, atraumatic Eyes: normal inspection, EOMI ENT: normal ENT inspection, hearing grossly normal, pharynx normal Neck: supple, no adenopathy, thyroid normal, trachea midline Respiratory/Chest: chest non-tender, lungs clear, normal breath sounds, no respiratory distress Cardiovascular: regular rate, rhythm, no gallop, no murmur Abdomen/GI: normal bowel sounds, non tender, soft, no organomegaly Back: normal inspection, no CVA tenderness Extremities/Musculoskelatal: no calf tenderness, non-tender, + pedal edema Neurologic/Psych: alert, normal mood/affect, oriented x 3 Skin: normal color, warm/dry, no rash Lymphatic: no adenopathy Laboratory Results RUN DATE: 12/26/17 [facility] PAGE 1 RUN TIME: 8405 Specimen Inquiry PATIENT: PATRICIA PLASCENCIA LOC: [facility] # : [id number] AGE/SX: 82/F ROOM: [facility] REG : 12/23/[address]: Radha Roman MD : [id number] BED: 2 DIS : STATUS: ADM IN TLOC: SPEC #: [id number] SKINNY: 12/23/17-0 STATUS: RES REQ #: [id number] RECD: 12/23/[address]: Farooq Brower MD SOURCE: BLOOD ENTR: 12/23/17-[address]: Kamini Dunn M.D. [facility] ORDERED: BLOOD CULTURE Procedure Result Verified Site BLD CULT Preliminary 12/26/17-0849 Organism 1 SERRATIA HARRISONA SENS SENSITIVITY TO FOLLOW Phoned Positive Blood Culture Gram Stain Report to SYLVIA LINDA on 12/24/17 At 0708 By RAFAELA. Results were verbalized back to RAFAELA. 1. SERRATIA HARRISONA Target Route Dose RX AB Cost M.I.C. IQ ------ ----- ------ -- ------ -------- - ------ TRIMET/SULFA S <=2/38 AMPICILLIN R >16 AMPICILLIN/SUL I 16/8 CEFAZOLIN S <=8 CEFOXITIN R >16 CEFOTAXIME S <=2 CEFTRIAXONE S <=1 CEFEPIME S <=4 CEFUROXIME R >16 IMIPENEM S <=1 GENTAMICIN S <=4 TOBRAMYCIN S <=4 AMIKACIN S <=16 CIPROFLOXACIN S <=1 LEVOFLOXACIN S <=2 ERTAPENEM S <=1 PIP/TAZO S <=16 S = SENSITIVE I = INTERMEDIATE R = RESISTANT END OF REPORT Last 24 Hours Test 12/25/17 11:23 12/25/17 13:23 12/25/17 16:26 12/25/17 20:26 Bedside Glucose 272 mg/dl 235 mg/dl 285 mg/dl 325 mg/dl Test 12/25/17 23:43 12/26/17 02:04 12/26/17 03:36 12/26/17 06:05 Bedside Glucose 313 mg/dl 300 mg/dl 281 mg/dl White Blood Count 5.17 K/uL Red Blood Count 3.27 M/uL Hemoglobin 8.9 g/dL Hematocrit 27.9 % Mean Corpuscular Volume 85.3 fL Mean Corpuscular Hemoglobin 27.2 pg Mean Corpuscular Hemoglobin Concent 31.9 g/dl Platelet Count 258 K/uL Mean Platelet Volume 9.2 fL Neutrophils (%) (Auto) 58.1 % Lymphocytes (%) (Auto) 21.9 % Monocytes (%) (Auto) 15.9 % Eosinophils (%) (Auto) 2.9 % Basophils (%) (Auto) 1.0 % Neutrophils # (Auto) 3.01 K/uL Lymphocytes # (Auto) 1.13 K/uL Monocytes # (Auto) 0.82 K/uL Eosinophils # (Auto) 0.15 K/uL Basophils # (Auto) 0.05 K/uL RDW Standard Deviation 57.1 fL RDW Coefficient of Variation 18.2 % Immature Granulocyte % (Auto) 0.2 % Immature Granulocyte # (Auto) 0.01 K/uL Large Platelets 1+ Ovalocytes 1+ Echinocytes 1+ Sodium Level 135 mmol/L Potassium Level 3.8 mmol/L Chloride Level 105 mmol/L Carbon Dioxide Level 22 mmol/L Anion Gap 8.0 mmol/L Blood Urea Nitrogen 29 mg/dl Creatinine 1.66 mg/dl Est Creatinine Clear Calc Drug Dose 20.8 ml/min Estimated GFR () 32.9 Estimated GFR (Non- 28.4 BUN/Creatinine Ratio 17.2 Random Glucose 179 mg/dl Calcium Level 7.2 mg/dl Magnesium Level 1.9 mg/dl Total Bilirubin 0.4 mg/dl Direct Bilirubin 0.1 mg/dl Aspartate Amino Transf (AST/SGOT) 14 U/L Alanine Aminotransferase (ALT/SGPT) 12 U/L Alkaline Phosphatase 180 U/L Total Protein 6.0 gm/dl Albumin 1.8 gm/dl Test 12/26/17 07:37 Bedside Glucose 133 mg/dl Patient Name: PATRICIA PLASCENCIA Unit Number: [id number] Dictated: 12/25/171247 Transcribed: 12/25/171247 EV Printed Date/Time: [~ rep prt dt]/[~ rep prt tm] [~ rep ct labl] - [~ rep ct ivnm] [facility] [place] [place] [address] Dictated: 12/25/171247 Transcribed: 12/25/171247 EV Printed Date/Time: [~ rep prt dt]/[~ rep prt tm] [~ rep ct labl] - [~ rep ct ivnm] CT SCAN OF THE ABDOMEN AND PELVIS WITHOUT IV CONTRAST CLINICAL HISTORY: Generalized abdominal pain. Biliary stent in place. Clinical concern for abscess. History of metastatic renal cell carcinoma. COMPARISON STUDY: Abdominal CT dated 09/17/2017. TECHNIQUE: CT scan of the abdomen and pelvis is performed from the lung bases to the proximal femora. Images are reviewed in the axial, sagittal, and coronal planes. IV contrast was not administered for this examination as per the referring clinician. Note that the examination was performed in significantly suboptimal fashion without oral and IV contrast. The examination is also degraded by motion artifact, and by streak artifact from the patient's left arm which could not be elevated above the abdomen. A dose lowering technique was utilized adhering to the principles of ALARA. CT DOSE: 988.19 mGycm FINDINGS: Lung bases: The heart is enlarged and there is trace pericardial effusion. The coronary arteries an aortic valve leaflets are calcified. There are trace pleural effusions with dependent atelectasis. A 2.7 cm nodule is again seen at the left lung base on image #31. Liver: The unenhanced liver is enlarged, measuring 24.3 cm in length. A common bile duct drain is in place. There is pneumobilia suggesting patency of the stent. Only mild intrahepatic biliary ductal dilatation is identified. Scattered calcified hepatic granulomas are observed. The liver is infiltrated by too numerous to count low-attenuation lesions, overall similar in size and distribution to the 09/17/2017 examination. The largest lesions measure at least 5 cm. The appearance is typical for multifocal hepatic metastatic disease. No gas and fluid containing collection is clearly identified in the liver to suggest abscess. Gallbladder: There are calcified gallstones. There is no clear CT evidence of acute cholecystitis. Spleen: Normal in size and attenuation. Pancreas: A 5.1 cm lesion is suggested in the pancreatic head on image #181. An additional 3.4 cm lesion is suggested in the pancreatic tail on image #104. These lesions likely represent metastatic disease. Adrenal glands: The right adrenal gland is normal in appearance. The left adrenal gland is not well-visualized.. Kidneys: The unenhanced right kidney demonstrates cortical atrophy and is without hydronephrosis. The left kidney is surgically absent. There are no renal calculi identified. There is no evidence of contour deforming renal mass lesion. No soft tissue lesion is suggested in the left renal fossa. Abdominal vasculature: The abdominal aorta is normal in course and caliber noting advanced atherosclerotic calcification. An infrarenal IVC filter is in place. Bowel: No bowel obstruction is seen. The appendix is not identified. Mild rectal wall thickening suggested. There is perirectal stranding. Peritoneum: There is no intraperitoneal free air or abdominal ascites. Lymphadenopathy: None. Pelvic viscera: The bladder is decompressed and not well evaluated. The uterus and adnexa are normal as visualized. Skeletal structures: The skeletal structures are osteopenic. There is moderate lumbosacral spondylosis. A large hemangioma is seen in the body of L5. A large expansile destructive bony lesion with pathologic fracture is seen involving the right ilium. There are healed pubic ring fractures. Advanced sclerotic change is noted in the pubic symphysis. Soft tissues: There is body wall edema. IMPRESSION: 1. Significantly suboptimal examination without oral and IV contrast. The examination is also compromised by streak and motion. 2. Hepatomegaly with evidence of diffuse/multifocal hepatic metastatic disease has not appreciably changed in appearance as compared to 09/17/2017. 3. A biliary stent is in place. Pneumobilia suggests patency of the stent. 4. There is no gas and fluid containing collection in the liver to suggest abscess. The sterility of the hepatic lesions cannot be assessed by imaging. 5. Osseous metastatic disease, left lower lobe pulmonary metastatic disease, and presumed pancreatic metastases are similar in appearance to previous. 6. Cardiomegaly and small pleural effusions. 7. Mild rectal wall thickening is questioned with perirectal stranding. Correlate clinically for evidence of a mild proctitis. 8. Cholelithiasis. 9. Additional findings as above. Electronically signed by: Shadi Echols M.D. 12/25/2017 1:03 PM Dictated Date/Time: 12/25/2017 12:48 PM The status of this report is Signed. Draft = Not yet reviewed or approved by Radiologist. Signed = Reviewed and approved by Radiologist. <AttendingPhy>Mike Fonseca MD</AttendingPhy> <FamilyPhy>Kamini Dunn M.D.</ FamilyPhy> <PrimaryPhy>Hang Lomeli M.D.</PrimaryPhy> <UnitNumber> [id number]</UnitNumber> <VisitNumber>[id number]</VisitNumber> <PatientName> PATRICIA PLASCENCIA</PatientName> <DateOfBirth>1935</DateOfBirth> < Location>[facility]</Location> <ServiceDate>12/23/17</ServiceDate> <MNE>ESINDI</MNE> <OrderingPhy>Adina Meadows</OrderingPhy> <OrderingPhyMNE>f rep ord dr colin</OrderingPhyMNE> <DictatingPhyMNE>f rep dict dr colin</DictatingPhyMNE> < CCListMNE>f rep ct mne</CCListMNE> <AdmittingPhyMNE>f pt admit dr colin</ AdmittingPhyMNE> <AttendingPhyMNE>f pt attend dr colin</AttendingPhyMNE> <ConsultingPhyMNE>f pt consult dr colin</ConsultingPhyMNE> <FamilyPhyMNE>f pt fam dr colin</FamilyPhyMNE> <OtherPhyMNE>f pt other dr colin</OtherPhyMNE> < PrimaryPhyMNE>f pt prim care dr colin</PrimaryPhyMNE> <ReferringPhyMNE>f pt referring dr colin</ReferringPhyMNE> Assessment & Plan 82-year-old female with metastatic renal cell carcinoma admitted with sepsis with Serratia, and probable C difficile colitis, and appears to be responding to current treatment. Likely a source Serratia seeding would be either from colitis or from infection around stent although no obvious evidence of latter process on CT scanning and no worsening liver enzymes. Serratia isolate is quinolone sensitive, so I think the patient could be transitioned to oral levofloxacin 500 mg daily. Patient is at extremely high risk for recurrent C difficile colitis, and I would recommend prolonged tapering course of vancomycin , and then possibly followed by chronic suppression. Given multiple liver metastases, tumor fever is certainly in the differential diagnosis, and could try small doses of naproxen to see if this could help suppress this. Will discuss with all involved. Will follow.
--- NOTE | 2017-12-26 10:54 | Gastroenterology Progress Note ---
Progress Note Date of Service: Dec 26, 2017 Subjective Pt evaluation today including: conversation w/ patient, physical exam, chart review, lab review, review of studies, review of inpatient medication list Ms. Macdonald is an 82 yr old female with a hx of metastatic renal cell carcinoma with pancreatic metastatic mass was admitted for sepsis. GI was asked to provide comment on possible biliary source of sepsis. LFTs remain normal and US and CT w/o evidence of bile duct obstruction. Previously placed metal CBD stent appears patent. C-diff (+). One loose BM thus far this morning. Pt feels well; no abdominal pain. WBC today 5. Eating well. Review of Systems Constitutional: + see HPI ENT: No hearing loss Respiratory: No cough Cardiac: No chest pain Abdomen: + diarrhea, No pain, No nausea, No vomiting, No constipation, No GI bleeding Female : No dysuria Neuro: No memory loss Psych: No depression symptoms Heme: No abnormal bleeding/bruising Endo: + fatigue (improved) Medications Current Inpatient Medications Medications (Trade) Dose Ordered Sig/Suleiman Route Start Time Stop Time Status Last Admin Dose Admin Sodium Chloride 1,000 ml @ 50 mls/hr Q20H IV 12/23/17 14:39 01/22/18 14:38 12/26/17 01:58 50 MLS/HR Acetaminophen (Tylenol Tab) 650 mg Q4H PRN PO 12/23/17 14:45 01/22/18 14:44 12/23/17 16:26 650 MG Ondansetron HCl (Zofran Inj) 4 mg Q6H PRN IV 12/23/17 14:45 01/22/18 14:44 Glucose (Glucose 40% Gel) 15-30 GRAMS 15 GRAMS... UD PRN PO 12/23/17 14:45 01/22/18 14:44 Glucose (Glucose Chew Tab) 4-8 Tablets 4 Tabl... UD PRN PO 12/23/17 14:45 01/22/18 14:44 Dextrose (Dextrose 50% 50ML Syringe) 25-50ML OF 50% DW IV FOR... UD PRN IV 12/23/17 14:45 01/22/18 14:44 12/25/17 05:07 25 ML Glucagon (Glucagon Inj) 1 mg UD PRN SQ 12/23/17 14:45 01/22/18 14:44 Fentanyl (Duragesic Patch) 50 mcg Q72H TD 12/24/17 09:00 01/07/18 08:59 12/24/17 08:02 50 MCG Acetaminophen/ Hydrocodone Bitart ([place] 7.5/325 Tab) 1 tab Q4 PRN PO 12/23/17 14:45 01/06/18 14:44 Levothyroxine Sodium (Synthroid Tab) 200 mcg DAILYBB PO 12/24/17 06:30 01/23/18 06:59 12/26/17 05:49 200 MCG Senna (Senokot Tab) 8.6 mg DAILY PO 12/24/17 09:00 01/23/18 08:59 12/24/17 08:02 8.6 MG Calcium Carbonate (oS-Nicholas 500 TAB) 1,250 mg DAILY PO 12/24/17 09:00 01/23/18 08:59 12/26/17 08:22 1,250 MG Miscellaneous (Fentanyl Patch Remove & Waste) 1 ea Q3D@0859 N/A 12/24/17 08:59 01/23/18 08:58 12/24/17 08:15 1 EA Miscellaneous Information (Check Fentanyl Patch Placement) 1 ea QS N/A 12/23/17 16:00 01/22/18 15:59 12/26/17 08:22 1 EA Acetaminophen 100 ml @ 400 mls/hr Q8H PRN IV 12/23/17 20:15 01/22/18 20:14 Miscellaneous Information (Consult Glycemic Management Pharmacy) 1 ea UD PRN N/A 12/24/17 01:45 01/23/18 01:44 Lactobacillus Acidophilus (Floranex Tab) 4 tab TIDM PO 12/24/17 12:00 01/23/18 11:59 12/26/17 08:22 4 TAB Vancomycin HCl (Vancomycin Oral Soln) 125 mg Q6H PO 12/25/17 04:00 01/08/18 03:59 12/26/17 09:22 125 MG Raspberry (Raspberry Syrup 5ml Cup) 5 ml Q6H PO 12/25/17 04:00 01/08/18 03:59 12/26/17 09:22 5 ML Insulin Aspart (novoLOG ASPART) SLIDING SCALE ACHS SC 12/25/17 08:00 01/24/18 07:59 12/26/17 08:27 6 UNITS Insulin Detemir (Levemir Flexpen/ FlexTouch) SEE PROTOCOL TEXT BID SC 12/26/17 21:00 01/25/18 20:59 Levofloxacin (Levaquin Tab) 500 mg DAILY@11 PO 12/26/17 11:00 01/09/18 10:59 UNV Objective Vital Signs Date Time Temp Pulse Resp B/P (MAP) Pulse Ox O2 Delivery O2 Flow Rate FiO2 12/26/17 07:45 Room Air 12/26/17 07:26 36.8 77 16 125/63 (83) 96 12/26/17 04:22 36.6 77 16 147/66 (93) 97 Room Air 12/26/17 04:00 Room Air 12/26/17 02:13 36.7 82 16 127/62 (83) Room Air 12/25/17 23:59 Room Air 12/25/17 23:24 36.8 85 18 146/66 (92) 97 Room Air 12/25/17 20:00 Room Air 12/25/17 16:00 Room Air 12/25/17 15:19 36.8 75 16 133/63 (86) 97 12/25/17 12:00 Room Air 12/25/17 11:55 36.6 71 18 122/63 (82) 99 Room Air Physical Exam General Appearance: no apparent distress, + pertinent finding (frail appearing) Neck: no JVD Respiratory/Chest: lungs clear Cardiovascular: regular rate, rhythm, + systolic murmur (3/6) Abdomen: non tender, soft Extremities: no pedal edema Neurologic/Psych: alert, normal mood/affect, oriented x 3 Skin: no jaundice Laboratory Results Last 24 Hours Test 12/25/17 11:23 12/25/17 13:23 12/25/17 16:26 12/25/17 20:26 Bedside Glucose 272 mg/dl 235 mg/dl 285 mg/dl 325 mg/dl Test 12/25/17 23:43 12/26/17 02:04 12/26/17 03:36 12/26/17 06:05 Bedside Glucose 313 mg/dl 300 mg/dl 281 mg/dl White Blood Count 5.17 K/uL Red Blood Count 3.27 M/uL Hemoglobin 8.9 g/dL Hematocrit 27.9 % Mean Corpuscular Volume 85.3 fL Mean Corpuscular Hemoglobin 27.2 pg Mean Corpuscular Hemoglobin Concent 31.9 g/dl Platelet Count 258 K/uL Mean Platelet Volume 9.2 fL Neutrophils (%) (Auto) 58.1 % Lymphocytes (%) (Auto) 21.9 % Monocytes (%) (Auto) 15.9 % Eosinophils (%) (Auto) 2.9 % Basophils (%) (Auto) 1.0 % Neutrophils # (Auto) 3.01 K/uL Lymphocytes # (Auto) 1.13 K/uL Monocytes # (Auto) 0.82 K/uL Eosinophils # (Auto) 0.15 K/uL Basophils # (Auto) 0.05 K/uL RDW Standard Deviation 57.1 fL RDW Coefficient of Variation 18.2 % Immature Granulocyte % (Auto) 0.2 % Immature Granulocyte # (Auto) 0.01 K/uL Large Platelets 1+ Ovalocytes 1+ Echinocytes 1+ Sodium Level 135 mmol/L Potassium Level 3.8 mmol/L Chloride Level 105 mmol/L Carbon Dioxide Level 22 mmol/L Anion Gap 8.0 mmol/L Blood Urea Nitrogen 29 mg/dl Creatinine 1.66 mg/dl Est Creatinine Clear Calc Drug Dose 20.8 ml/min Estimated GFR () 32.9 Estimated GFR (Non- 28.4 BUN/Creatinine Ratio 17.2 Random Glucose 179 mg/dl Calcium Level 7.2 mg/dl Magnesium Level 1.9 mg/dl Total Bilirubin 0.4 mg/dl Direct Bilirubin 0.1 mg/dl Aspartate Amino Transf (AST/SGOT) 14 U/L Alanine Aminotransferase (ALT/SGPT) 12 U/L Alkaline Phosphatase 180 U/L Total Protein 6.0 gm/dl Albumin 1.8 gm/dl Test 12/26/17 07:37 Bedside Glucose 133 mg/dl Assessment and Plan Ms. Malagon is an 82 yr old female patient with sepsis unknown source. It does not appear that this is a biliary source, at least there is no obvious stent obstruction. Though, with her metal stent in place, there is some low probability of bacteria migrating from the small bowel into the CBD causing sepsis. The other possible GI source is her C-diff diarrhea, though. However, there was no evidence of colitis on CT, so no clear evidence of sepsis from the C-diff. Plan: Antibiotics and supportive care. Recommend against ERCP w/o clear evidence of bile duct/stent obstruction. I performed a history and physical examination of the patient, including specifically on physical exam - no abdominal tenderness. I have discussed the patient's management with SY Byers. Please refer to the nurse practitioner's note for the documented findings and plan of care. Continue PO Vanc and monitor diarrhea. Daughter declined Flex sig hence recommend only comfort care at this time. Please recall GI if any questions or concerns.
[2017-12-26] MEDS ORDERED: LEVOFLOXACIN 500 MG TAB PO STA (11:08)
[2017-12-26] MEDS ORDERED: LEVOFLOXACIN CONSULT ACTIVE PRN (11:15)
--- NOTE | 2017-12-26 11:59 | Pharmacy Progress Note ---
Pharmacy Glycemic Short Note 2 Date of Service Dec 26, 2017. OUTPATIENT ANTIDIABETIC REGIMEN: * Levemir 10 units SQ BID ASSESSMENT: * Ms Malagon is an 82 y/o F with a PMH of renal cell carcinoma with bone mets on Opdivo, CHF, h/o DVT, and poorly controlled type 2 diabetes ( recommended HbA1C goal range per the Elements of Diabetes Care Scoring Scale is 7.6-8.0%). Her glycemic control is improving slightly. * Ms Malagon was admitted with sepsis which is currently identified as a Serratia bacteremia. She is currently being treated with Zosyn. Yesterday the patient's blood sugars were uncontrolled. Blood sugars were [phone]. Fasting PRP was 179 mg/dL with accucheck of 133 mg/dL. This is significantly improved compared to yesterday. Continue with 10 units of Levemir this morning and then establish a scale for this evening. Patient received 48 units of insulin yesterday (20 units of basal). * Tightened Novolog for breakfast as yesterday the patient's blood sugar continued upwards throughout the day. Lunch was trending downwards so loosened. PLAN FOR INPATIENT GLYCEMIC CONTROL: * Basal insulin * Levemir 10 units SQ this morning then 10 units if blood sugar over 180 mg/dL (6 units if blood sugar 180 mg/dL or less) * Bolus insulin * NovoLog per scale ACHS or Q6hrs while NPO * Goal Range: Low 140 mg/dL - High 180 mg/dL * Correction Factor: 25 mg/dL/unit * Nutritional / Prandial insulin per carb ratio of 1 unit per 9 grams CHO consumed PLAN FOR DISCHARGE: * Patient's glycemic control is improving slightly but still not at goal. Continue to work with family and physician to help patient achieve better control.
[2017-12-26] MEDS ORDERED: FURO-85 PO (17:02)
[2017-12-26] MEDS ORDERED: VANC5CAP PO (17:02)
[2017-12-26] MEDS ORDERED: LVQ250 PO (17:02)
--- NOTE | 2017-12-26 17:05 | Discharge Instructions ---
Discharge Instructions Date of Service Dec 26, 2017. Admission Reason for Admission: Fever, Weakness Discharge Discharge Diagnosis / Problem: Serratia septicemia, C. difficile diarrhea Discharge Goals Goal(s): Improve disease control, Diagnostic testing, Therapeutic intervention Activity Recommendations Activity Limitations: as noted below Exercise/Sports Limitations: gradually increase as tolerated Shower/Bathe: no limitations . Instructions / Follow-Up Instructions / Follow-Up Please finish out the course of Levaquin for the bacteria in your bloodstream for 12 more days. Please complete the slow oral vancomycin taper over the next 4 weeks. The infectious disease specialist recommends possible continuation on preventative oral vancomycin after that. Please discuss this with your family doctor after discharge. Current Hospital Diet Patient's current hospital diet: Diabetes Type 2 Diet, Low Sodium Diet (2gm Na) Discharge Diet Recommended Diet: Low Sodium Diet (2gm Na), Diabetes Type 2 Diet Procedures Procedures Performed: Chest x-ray Gallbladder ultrasound CT abdomen/pelvis Pending Studies Studies pending at discharge: yes List of pending studies: Final result of repeat blood cultures Laboratory Results Hemoglobin A1c Test 12/24/17 05:21 Range/Units Estimated Average Glucose 206 mg/dl Hemoglobin A1c 8.8 H 4.5-5.6 % Medical Emergencies . Who to Call and When: Medical Emergencies: If at any time you feel your situation is an emergency, please call 911 immediately. . Non-Emergent Contact Non-Emergency issues call your: Primary Care Provider Call Non-Emergent contact if: you have a fever, temperature is above 100.5, you have any medication questions . . "Provider Documentation" section prepared by Radha Roman. .
--- NOTE | 2017-12-26 17:15 | Discharge Summary ---
Discharge Summary Date of Service Dec 27, 2017. Discharge Summary Admission Date: Dec 23, 2017 at 14:44 Discharge Date: Dec 27, 2017 Discharge Disposition: Home Principal Diagnosis: Serratia septicemia, C. 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 currently on Opdivo Acute renal insufficiency in the setting of CKD stage III with unilateral kidney History of DVT now status post IVC filter History of biliary obstruction with bare-metal stent in the biliary tract DM 2, uncontrolled, with long-term use of insulin, with hyperglycemia Chronic diastolic CHF Hypothyroidism Hyponatremia Chronic peripheral edema Immunizations: Have You Had Influenza Vaccine: Yes History of Tetanus Vaccine?: Unknown History of Pneumococcal: Yes History of Hepatitis B Vaccine: No Procedures: Chest x-ray Gallbladder ultrasound CT abdomen/pelvis Consultations: Infectious disease Gastroenterology Medication Reconciliation New Medications: Vancomycin Hcl (Vancomycin) 125 Mg Cap 125 MG PO QID, #66 CAP x 6 days then tid x 7 days then bid x 7 days then daily x 1 week Levofloxacin (Levofloxacin) 250 Mg Tab 250 MG PO DAILY@11 for 12 Days, #12 TAB Changed Medications: Furosemide (Lasix) 20 Mg Tab 20 MG PO 2XWK PRN for EDEMA for 30 Days, TAB (Changed from: 4XWK; sat sun) Sat and Continued Medications: Acetaminophen (Tylenol) 500 Mg Tab 1000 MG PO UD PRN for Pain, TAB Calcium Carbonate (Calcium) 500 Mg Chw 500 MG PO DAILY Cyanocobalamin (Cyanocobalamin) 1 Pow Pow 1 TAB PO DAILY CHEWABLE Darbepoetin Eddie-Polysorbate 8 (Aranesp Albumin Free) 10 Mcg/0.4 Ml Inj Denosumab (Xgeva) 120 Mg/1.7 Ml Inj 1 DOSE SQ MONTHLY Fentanyl (Duragesic) 50 Mcg Tdsy 50 MCG TD [id number] for 30 Days, #10 PATCH Hydrocodone/Acetaminophen 7.5MG/325MG ([place] 7.5MG/325MG) Tab 1 TAB PO Q4 PRN for Pain for 30 Days, #90 TAB 0 Refills Take 1 tablet by mouth q4h for severe pain. Insulin Detemir (Levemir Flextouch) 100 Unit/Ml Inj 10 UNITS SQ AMPM Lactobacillus-Inulin (Culturelle) 1 Cap Cap 1 CAP PO DAILY Levothyroxine Sodium (Levothyroxine Sodium) 200 Mcg Tab 200 MCG PO DAILY Nivolumab (Opdivo) Unknown Strength Inj 1 DOSE IV [id number] Ondansetron Hcl (Zofran) 8 Mg Tab 8 MG PO Q8 PRN for Nausea Polyethylene Glycol 3350 (Miralax) 1 Pow Pow 17 GM PO DAILY PRN for Constipation Senna (Senokot) 8.6 Mg Tab 1 TAB PO DAILY for 30 Days, #30 TABS 0 Refills Discharge Exam Patient feeling great. Denies headache, lightheadedness, chest pain, shortness of breath, cough, abdominal pain. She only had one loose stool this morning. She is eating and drinking like normal. She is ambulating around the room to the bathroom without difficulty. She is very excited about discharge to home today. She remains afebrile. Telemetry with normal sinus rhythm and a few PVCs. Physical Exam General Appearance: no apparent distress, + thin Eyes: normal inspection, sclerae normal ENT: hearing grossly normal Neck: trachea midline Respiratory/Chest: lungs clear, normal breath sounds, no respiratory distress, no accessory muscle use Cardiovascular: regular rate, rhythm, no edema, no gallop, no murmur Abdomen: normal bowel sounds Extremities: non-tender, + swelling (trace pitting edema legs to knees bilat, improved from previous) Neurologic/Psychiatric: alert, normal mood/affect, oriented x 3 Skin: warm/dry, + pertinent finding (chronic venous stasis changes legs bilat) Review of Systems: Constitutional: No fever, No chills, No fatigue Eyes: No problem reported ENT: No problem reported Respiratory: No problem reported Cardiovascular: No problem reported Abdomen: No problem reported Musculoskeletal: No problem reported Genitourinary - Female: No problem reported Neurologic: No problem reported Psychiatric: No problem reported Endocrine: No problem reported Hematologic / Lymphatic: No problem reported Integumentary: No problem reported Hospital Course This patient is an 82-year-old female with history of metastatic renal cell carcinoma with metastases to the bones/lung/pancreas/liver currently on Opdivo, CKD stage III with unilateral kidney, history of DVT now status post IVC filter , 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 intake, and fever. She had one episode of nausea and vomiting the night prior to admission, but denies abdominal pain/diarrhea, denies cough or shortness of breath, denies urinary symptoms. Upon arrival in the ER, she was mildly hypotensive at 106/62 and was given a gentle 500 mL normal saline bolus. Her creatinine was mildly elevated above baseline at 1.58 and she appeared dehydrated. Her chest x-ray was negative, flu swab was negative, urinalysis was negative, and she had no leukocytosis. She was afebrile in our ER, but her daughter who is a nurse measured her temp to 101 at home. She spiked a fever shortly after admission. She has a history of biliary sepsis, as well as UTI with sepsis in the past, and as above, she is on immunosuppressive therapy for her cancer. She does not have a port in place. Of note, she was recently admitted to [facility] a few weeks ago for chest pain and acute on chronic diastolic CHF. 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 CT abd/pel without evidence of biliary obstruction or abscess. She has a h/o UTIs, but no symptoms otherwise i.e no abdominal pain or tenderness, no urinary symptoms, no respiratory symptoms. 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 -She is at risk for recurrent infection in the future -repeat BCxs are still with no growth to date and she remains afebrile -She received IV Zosyn and vancomycin until the cultures were positively identified-then switch to oral Levaquin on the day of discharge -Appreciate GI consultation-no recommendation for further procedures or evaluation as her stent appears patent Clostridium difficile diarrhea--> had no abd pain or diarrhea prior to admission. Had 3 loose stools here after received senna, tested positive for C. diff stool antigen and has tested positive in the past with and without diarrhea as per daughter. Only one loose stool on the day of discharge. Could possibly be a carrier of C. diff, but difficult to sort out given recent abx use, loose stools in setting of laxative use. -will continue treatment with po Vanco for a prolonged 4 week course with the taper. 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 Family reports her lower extremity edema is actually much improved from previous -continue gentle IVFs -Holding home Lasix Renal cell carcinoma with mets to bones,lung,pancreas, liver/chronic pain- follows with Dr. Lomeli of [facility] oncology. CT abd/pelvis here with numerous liver, bony, pancreas, and lung mets all stable from previous on imaging - Hold all chemotherapeutic agents at this time-was due for Opdivo this Saturday -Continue fentanyl patch and hydrocodone as needed for breakthrough pain for her bony metastases History of DVT with Coumadin coagulopathy/status post IVC filter-no evidence of DVT at this time DM 2-family requested upon admission that her glucose be kept above 150 at all times or else she gets hypoglycemic symptoms--> then glucose was in 400s and on insulin gtt--> now Pharmacy managing and back on basal/bolus regimen with resolved hyperglycemia. HgbA1C 8.8% here-uncontrolled -Accu-Cheks -discharge back to home on usual Lantus regimen Hypothyroidism-TSH here is 3.6 -Continue home levothyroxine dose Stable for discharge to home Total Time Spent: Greater than 30 minutes This includes examination of the patient, discharge planning, medication reconciliation, and communication with other providers. Discharge Instructions Please refer to the electronic Patient Visit Report (Discharge Instructions) for additional information. Follow-Up With PCP within 1-2 weeks Additional Copies To Kamini Dunn M.D.
[2017-12-26] MEDS ORDERED: NURSING VERBAL MED ORDER ONE (19:00)
--- NOTE | 2017-12-26 19:05 | Progress Note ---
Progress Note Date of Service Dec 26, 2017. Progress Note Patient feeling great when I first saw her today and plans were made for discharge. Just prior to her leaving, she started feeling very tired and weak. Glucose was in the 80s and then low 100s which daughter reports always makes her feel poorly. She was given orange juice and 1/2 amp D50, but still wanted to stay over one more night. Denies headache, lightheadedness, chest pain, shortness of breath, cough, abdominal pain. She only had one loose stool this morning. She is eating and drinking like normal. She is ambulating around the room to the bathroom without difficulty. She is very excited about discharge to home today initially , but then changed her mind when sugar dropped low. She remains afebrile. Telemetry with normal sinus rhythm and a few PVCs. Physical Exam General Appearance: no apparent distress, + thin Eyes: normal inspection, sclerae normal ENT: hearing grossly normal Neck: trachea midline Respiratory/Chest: lungs clear, normal breath sounds, no respiratory distress, no accessory muscle use Cardiovascular: regular rate, rhythm, no edema, no gallop, no murmur Abdomen: normal bowel sounds Extremities: non-tender, + swelling (trace pitting edema legs to knees bilat, improved from previous) Neurologic/Psychiatric: alert, normal mood/affect, oriented x 3 Skin: warm/dry, + pertinent finding (chronic venous stasis changes legs bilat) Review of Systems: Constitutional: No fever, No chills, No fatigue Eyes: No problem reported ENT: No problem reported Respiratory: No problem reported Cardiovascular: No problem reported Abdomen: No problem reported Musculoskeletal: No problem reported Genitourinary - Female: No problem reported Neurologic: No problem reported Psychiatric: No problem reported Endocrine: No problem reported Hematologic / Lymphatic: No problem reported Integumentary: No problem reported A/P: This patient is an 82-year-old female with history of metastatic renal cell carcinoma with metastases to the bones/lung/pancreas/liver currently on Opdivo, CKD stage III with unilateral kidney, history of DVT now status post IVC filter , 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 intake, and fever. She had one episode of nausea and vomiting the night prior to admission, but denies abdominal pain/diarrhea, denies cough or shortness of breath, denies urinary symptoms. Upon arrival in the ER, she was mildly hypotensive at 106/62 and was given a gentle 500 mL normal saline bolus. Her creatinine was mildly elevated above baseline at 1.58 and she appeared dehydrated. Her chest x-ray was negative, flu swab was negative, urinalysis was negative, and she had no leukocytosis. She was afebrile in our ER, but her daughter who is a nurse measured her temp to 101 at home. She spiked a fever shortly after admission. She has a history of biliary sepsis, as well as UTI with sepsis in the past, and as above, she is on immunosuppressive therapy for her cancer. She does not have a port in place. Of note, she was recently admitted to [facility] a few weeks ago for chest pain and acute on chronic diastolic CHF. 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 CT abd/pel without evidence of biliary obstruction or abscess. She has a h/o UTIs, but no symptoms otherwise i.e no abdominal pain or tenderness, no urinary symptoms, no respiratory symptoms. 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 -She is at risk for recurrent infection in the future -repeat BCxs are still with no growth to date and she remains afebrile -She received IV Zosyn and vancomycin until the cultures were positively identified-then switch to oral Levaquin on the day of discharge -Appreciate GI consultation-no recommendation for further procedures or evaluation as her stent appears patent Clostridium difficile diarrhea--> had no abd pain or diarrhea prior to admission. Had 3 loose stools here after received senna, tested positive for C. diff stool antigen and has tested positive in the past with and without diarrhea as per daughter. Only one loose stool on the day of discharge. Could possibly be a carrier of C. diff, but difficult to sort out given recent abx use, loose stools in setting of laxative use. -will continue treatment with po Vanco for a prolonged 4 week course with the taper. 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 Family reports her lower extremity edema is actually much improved from previous -continue gentle IVFs -Holding home Lasix Renal cell carcinoma with mets to bones,lung,pancreas, liver/chronic pain- follows with Dr. Lomeli of [facility] oncology. CT abd/pelvis here with numerous liver, bony, pancreas, and lung mets all stable from previous on imaging - Hold all chemotherapeutic agents at this time-was due for Opdivo this Saturday -Continue fentanyl patch and hydrocodone as needed for breakthrough pain for her bony metastases History of DVT with Coumadin coagulopathy/status post IVC filter-no evidence of DVT at this time DM 2-family requested upon admission that her glucose be kept above 150 at all times or else she gets hypoglycemic symptoms--> then glucose was in 400s and on insulin gtt--> now Pharmacy managing and back on basal/bolus regimen with resolved hyperglycemia. Now with relative hypoglycemia causing fatigue and now declining to go home HgbA1C 8.8% here-uncontrolled -Accu-Cheks -discharge back to home on usual Lantus regimen Hypothyroidism-TSH here is 3.6 -Continue home levothyroxine dose Stable for discharge to home likely tomorrow
[2017-12-26] MEDS ORDERED: DEXTROSE 50% 50 ML SYR IV ONE (19:30)
[2017-12-27] MEDS: CHECK FENTANYL PATCH PLACEMENT SCH ×2 (00:25→08:23)
[2017-12-27] MEDS: VANCOMYCIN HCL 125 MG/2.5ML SOLN PO SCH ×2 (03:36→10:18)
[2017-12-27] MEDS: RASPBERRY SYRUP 5 ML UDP PO SCH ×2 (03:36→10:18)
[2017-12-27 03:55] VITALS: BP 154/66; PULSE 91; TEMP 36.7; O2SAT 95
[2017-12-27] MEDS: LEVOTHYROXINE 200 MCG TAB PO SCH (06:03)
[2017-12-27 07:30] VITALS: BP 168/72; PULSE 86; TEMP 36.7; O2SAT 96
[2017-12-27 08:01] LABS: CREATININE 1.36 mg/dl (0.60-1.20)
[2017-12-27] MEDS: INSULIN ASPART 100 UNITS/ML 3 ML PEN SC SCH ×2 (08:15→11:00)
[2017-12-27] MEDS: SENNA 8.6 MG TAB PO SCH (08:17)
[2017-12-27] MEDS: CALCIUM CARBONATE 1250MG TAB PO SCH (08:19)
[2017-12-27] MEDS: LACTOBACILLUS ACIDOPHILUS (FLORANEX) TAB PO SCH ×2 (08:20→12:00)
[2017-12-27] MEDS: FENTANYL PATCH REMOVE & WASTE SCH (08:23)
[2017-12-27] MEDS: FENTANYL 50 MCG/HR TDSY TD SCH (08:23)
[2017-12-27] MEDS ORDERED: INSULIN DETEMIR FLEXPEN/FLEX TOUCH 100 UNITS/ML 3ML SC SCH ×3 (09:00→21:00)
[2017-12-27] MEDS ORDERED: LEVOFLOXACIN 250 MG TAB PO SCH (11:00)
[2017-12-27 11:45] VITALS: BP 149/61; PULSE 78; TEMP 36.9; O2SAT 97
--- NOTE | 2017-12-27 12:56 | Pharmacy Progress Note ---
Pharmacy Glycemic Short Note 2 Date of Service Dec 27, 2017. OUTPATIENT ANTIDIABETIC REGIMEN: * Levemir 10 units SQ BID ASSESSMENT: * Ms Malagon is an 82 y/o F with a PMH of renal cell carcinoma with bone mets on Opdivo, CHF, h/o DVT, and poorly controlled type 2 diabetes ( recommended HbA1C goal range per the Elements of Diabetes Care Scoring Scale is 7.6-8.0%). Her glycemic control is improving slightly. * Ms Malagon was admitted with sepsis which is currently identified as a Serratia bacteremia. She is currently being treated with Levaquin PO. Yesterday the patient's blood sugars were slightly more controlled. Blood sugars were 133- [phone]. Patient received 26 units of insulin yesterday (16 units of basal). The patient's fasting blood sugar today was 245 mg/dL. Reduced Levemir dosing for today as the patient was below 150 mg/dL much of the day. Give 8 units of Levemir this morning and then provide a scale of 8 or 10 units secondary to sustained hyperglycemia at lunch. * Continue loosened Novolog until can be evaluated. Patient refused dinner Novolog last night and breakfast this morning. PLAN FOR INPATIENT GLYCEMIC CONTROL: * Basal insulin * Levemir 8 units SQ this morning then 10 units if blood sugar over 180 mg/dL ( 8 units if blood sugar 180 mg/dL or less) * Bolus insulin * NovoLog per scale ACHS or Q6hrs while NPO * Goal Range: Low 140 mg/dL - High 180 mg/dL * Correction Factor: 30 mg/dL/unit * Nutritional / Prandial insulin per carb ratio of 1 unit per 10 grams CHO consumed PLAN FOR DISCHARGE: * Patient's glycemic control is improving slightly but still not at goal. Continue to work with family and physician to help patient achieve better control.
== END 2017-12-27 12:58 | disposition home or self-care (01) | DRG 872 ==
LOC: C.EDB 11:27 → UNDOADMIN 14:44 → C.MED 14:44 → ENRESERV 15:15
PROVIDERS: ADMIT Family Medicine; ATTEND Family Medicine
DX: A41.53 Sepsis due to Serratia (principal); E87.1 Hypo-osmolality and hyponatremia; A04.72 Enterocolitis due to Clostridium difficile, not specified as recurrent; C64.9 Malignant neoplasm of unspecified kidney, except renal pelvis; C79.51 Secondary malignant neoplasm of bone; C78.00 Secondary malignant neoplasm of unspecified lung; C78.89 Secondary malignant neoplasm of other digestive organs; I50.32 Chronic diastolic (congestive) heart failure; N28.9 Disorder of kidney and ureter, unspecified; G89.3 Neoplasm related pain (acute) (chronic); E11.22 Type 2 diabetes mellitus with diabetic chronic kidney disease; N18.3 Chronic kidney disease, stage 3 (moderate); E11.65 Type 2 diabetes mellitus with hyperglycemia; E11.649 Type 2 diabetes mellitus with hypoglycemia without coma; E03.9 Hypothyroidism, unspecified; Z66 Do not resuscitate; Z90.5 Acquired absence of kidney; Z98.890 Other specified postprocedural states; Z87.440 Personal history of urinary (tract) infections; Z86.19 Personal history of other infectious and parasitic diseases; Z86.718 Personal history of other venous thrombosis and embolism; Z79.4 Long term (current) use of insulin; Z79.891 Long term (current) use of opiate analgesic; Z79.899 Other long term (current) drug therapy; Z91.048 Other nonmedicinal substance allergy status; Z83.3 Family history of diabetes mellitus; Z82.49 Family history of ischemic heart disease and other diseases of the circulatory system

== ENCOUNTER 2018-01-30 12:22 | Inpatient (IN) | payer OTHER, MEDICARE ==
[~2018-01-30] VITALS: Ht 152.4 cm; Wt 63.5 kg
[~2018-01-30 12:22] MED LIST changes: +ACET-1256 PO; -ACET-1693 PO; +CALC500C73 PO; +CYANPOW PO; +FURO-85 PO; +INSU3INJ3 SQ; +LACT10CA3 PO; -LDDP5 TD; +LEVO200T6 PO; -LISI-461 PO; +LVQ250 PO; -LVQ750 PO; +NIVO4INJ IV; +ONDA-170 PO; -PANT40TA PO; +POLY335019 PO; +VANC5CAP PO; +[UNRECOGNIZED DRUG - CODE]
[2018-01-30] MEDS ORDERED: SODIUM CHLORIDE 0.9% 1000ML 2,000 ML IV STA (12:48)
[2018-01-30 13:22] LABS: BASO % 0.2 %; BASO ABS # 0.02 K/uL (0-0.2); HEMATOCRIT 31.4 % (37-47); HEMOGLOBIN 9.7 g/dL (12.0-16.0); IG# 0.03 K/uL (0.00-0.02); LYMPH % 3.6 %; MEAN CORPUSCULAR HEMOGLOBIN 25.9 pg (25-34); MEAN CORPUSCULAR HGB CONC 30.9 g/dl (32-36); MEAN PLATELET VOLUME 9.4 fL (7.4-10.4); MONO % 5.4 %; NEUT % 90.5 %; NEUT ABS # 9.99 K/uL (1.4-6.5); PLATELET COUNT 247 K/uL (130-400); RED CELL DISTRIBUTION WIDTH CV 18.4 % (11.5-14.5); RED CELL DISTRIBUTION WIDTH SD 57.1 fL (36.4-46.3); WHITE BLOOD COUNT 11.04 K/uL (4.8-10.8)
[2018-01-30] MEDS ORDERED: FERR1TAB13 PO (13:24)
[2018-01-30] MEDS ORDERED: IBUP-1449 PO (13:26)
[2018-01-30] MEDS ORDERED: FURO-85 PO (13:28)
[2018-01-30 13:31] LABS: INFLUENZA B ANTIGEN Neg for Influ B (NEG)
[2018-01-30 13:38] LABS: INR 1.1 (0.9-1.1); PTT PATIENT 28.7 SECONDS (21.0-31.0)
[2018-01-30] MEDS ORDERED: FNTTP50 TD (13:38)
[2018-01-30] MEDS ORDERED: HYDR-3983 PO (13:38)
[2018-01-30] MEDS ORDERED: VANC5CAP PO (13:38)
[2018-01-30] MEDS ORDERED: SENN-63 PO (13:38)
[2018-01-30 13:40] LABS: ALBUMIN 2.5 gm/dl (3.4-5.0); CALCIUM 7.7 mg/dl (8.5-10.1); CREATININE 1.47 mg/dl (0.60-1.20); POTASSIUM 4.5 mmol/L (3.5-5.1)
--- NOTE | 2018-01-30 13:43 | EMERGENCY ROOM VISIT NOTE ---
History Report prepared by Ruiz: Sj Orlando Under the Supervision of: Dr. Wong Flores M.D. First contact with patient: 12:33 Chief Complaint: FEVER Stated Complaint: FEVER History of Present Illness The patient is an 82 year old white female with a past medical history of diabetes, DVT, hypertension, hypocalcemia, hypotension, renal cell carcinoma with mets to bone, renal cell carcinoma with mets to lung, and sepsis who presents to the Emergency Room with complaints of a waxing and waning fever that has been occurring for the past month. The patient's daughter at bedside notes that the patient has been having these episodes where she gets chills, and then spikes a fever. She has been in the hospital multiple times for these fevers, and has been diagnosed with C. difficile and E. coli recently. This episode began on Saturday, 2 days ago when she felt chills and spiked a fever of 99.5. The family was using Tylenol to break the fever. Yesterday and early this morning the patient felt fine. As the day went on today the patient developed chills and spiked a fever of 102.0 degrees. The patient's mental status and temperature seemed to improve on the drive to the ED, as she started to answer questions with more than one word. The patient notes that she did have a cough earlier today that was dry. Source of History: patient, family Onset: 1 month ago, 2 days ago for this episode Position: chest ("cough"), other (Global) Symptom Intensity: fever of 102.0 today Quality: other (Cough, Fever globally) Timing: waxes/wanes Associated Symptoms: + fevers, + chills, + cough Review of Systems See HPI for pertinent positives and negatives. A total of ten systems were reviewed and were otherwise negative. 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 (8) Secondary hyperparathyroidism (9) Sepsis Family History Diabetes mellitus Heart disease Hypertension Social History Smoking Status: Never Smoker Alcohol Use: none Drug Use: none Marital Status: Housing Status: lives with family Occupation Status: retired Current/Historical Medications Scheduled Calcium Carbonate (Calcium), 500 MG PO QAM Cyanocobalamin (Cyanocobalamin), 1 TAB PO DAILY Denosumab (Xgeva), 1 DOSE SQ MONTHLY Fentanyl (Duragesic), 50 MCG TD [id number] Ferrous Sulfate (Kp Ferrous Sulfate), 1 TAB PO Q2D Furosemide (Lasix), 20 MG PO 4XWK Insulin Detemir (Levemir Flextouch), 12 UNITS SQ QAM Insulin Detemir (Levemir Flextouch), 10 UNITS SC QPM Lactobacillus-Inulin (Culturelle), 1 CAP PO QAM Levothyroxine Sodium (Levothyroxine Sodium), 200 MCG PO QAM Nivolumab (Opdivo), 1 DOSE IV [id number] Vancomycin Hcl (Vancomycin), 1 CAP PO QAM Scheduled PRN Acetaminophen (Tylenol), 1,000 MG PO UD PRN for Pain Hydrocodone/Acetaminophen 7.5MG/325MG ([place] 7.5MG/325MG), 1 TAB PO Q4H PRN for Pain Ibuprofen Tab (Motrin), 400 MG PO UD PRN for Pain Ondansetron Hcl (Zofran), 8 MG PO Q8 PRN for Nausea Polyethylene Glycol 3350 (Miralax), 17 GM PO DAILY PRN for Constipation Sennosides (Senokot), 1 TAB PO QAM PRN for Constipation Miscellaneous Medications Darbepoetin Eddie-Polysorbate 8 (Aranesp Albumin Free) Allergies Coded Allergies: Adhesives (Verified Allergy, Mild, LOCAL SKIN IRRITATION, BLISTERS, 01/30/18 ) Uncoded Allergies: ANTICOAGULANTS (Adverse Reaction, Intermediate, INCREASED INR -PER FAMILY, 05/20/17) Physical Exam Vital Signs Date Time Temp Pulse Resp B/P (MAP) Pulse Ox O2 Delivery O2 Flow Rate FiO2 01/30/18 15:49 78 18 108/54 97 Room Air 01/30/18 14:08 Nasal Cannula 2.0 01/30/18 14:05 84 16 109/52 92 Room Air 01/30/18 13:47 90 01/30/18 13:32 91 18 110/52 92 Room Air 01/30/18 12:23 37.0 103 18 109/64 93 Room Air Physical Exam GENERAL: Awake, alert, emaciated, wearing glasses, NAD HENT: Normocephalic, atraumatic. EYES: Normal conjunctiva. Sclera non-icteric. PERRL. No anisocoria. NECK: Supple. No nuchal rigidity. FROM. RESPIRATORY: Rhonchus breath sounds at the bases. No wheezing, crackles CARDIAC: RRR, no MRG ABDOMEN: Soft, NTND, BS+ MSK: No chest wall TTP, 1+ LE edema NEURO: GCS 15, CN 2-12 intact, moves all 4s on command SKIN: No rash or jaundice noted. Medical Decision & Procedures ER Provider Diagnostic Interpretation: Radiology results as stated below per my review and radiologist interpretation: CHEST ONE VIEW PORTABLE HISTORY: 82 years-old Female FEVER acute fever COMPARISON: Chest radiograph 12/24/2017 TECHNIQUE: Portable AP view the chest FINDINGS: Cardiac silhouette is again enlarged, unchanged. Atherosclerosis of the aorta. Pulmonary vascular congestion with mild interstitial coarsening. Trace bilateral pleural effusions with subsegmental bibasilar opacities suggesting atelectasis. No pneumothorax. Demineralized appearance of the bones with displaced subacute chronic appearing left proximal humeral fracture, unchanged. Left upper rib lesion is unchanged. Vascular stent and surgical clips project over the upper abdomen. IMPRESSION: 1. Cardiomegaly with mild pulmonary vascular congestion and interstitial coarsening suggesting mild pulmonary edema. 2. Trace bilateral pleural effusions with bibasilar subsegmental opacities favoring atelectasis. The above report was generated using voice recognition software. It may contain grammatical, syntax or spelling errors. Electronically signed by: Douglas Hanks M.D. 01/30/2018 1:43 PM Dictated Date/Time: 01/30/2018 1:41 PM Laboratory Results 01/30/18 13:06 Red Blood Count 3.74, Mean Corpuscular Volume 84.0, Mean Corpuscular Hemoglobin 25.9, Mean Corpuscular Hemoglobin Concent 30.9, Mean Platelet Volume 9.4, Neutrophils (%) (Auto) 90.5, Lymphocytes (%) (Auto) 3.6, Monocytes (%) (Auto) 5.4, Eosinophils (%) (Auto) 0.0, Basophils (%) (Auto) 0.2, Neutrophils # (Auto) 9.99, Lymphocytes # (Auto) 0.40, Monocytes # (Auto) 0.60, Eosinophils # (Auto) 0.00, Basophils # (Auto) 0.02 01/30/18 13:06 Test 01/30/18 13:00 01/30/18 13:06 Influenza Type A Antigen Neg for Influ A (NEG) Influenza Type B Antigen Neg for Influ B (NEG) White Blood Count 11.04 K/uL (4.8-10.8) Red Blood Count 3.74 M/uL (4.2-5.4) Hemoglobin 9.7 g/dL (12.0-16.0) Hematocrit 31.4 % (37-47) Mean Corpuscular Volume 84.0 fL (80-100) Mean Corpuscular Hemoglobin 25.9 pg (25-34) Mean Corpuscular Hemoglobin Concent 30.9 g/dl (32-36) Platelet Count 247 K/uL (130-400) Mean Platelet Volume 9.4 fL (7.4-10.4) Neutrophils (%) (Auto) 90.5 % Lymphocytes (%) (Auto) 3.6 % Monocytes (%) (Auto) 5.4 % Eosinophils (%) (Auto) 0.0 % Basophils (%) (Auto) 0.2 % Neutrophils # (Auto) 9.99 K/uL (1.4-6.5) Lymphocytes # (Auto) 0.40 K/uL (1.2-3.4) Monocytes # (Auto) 0.60 K/uL (0.11-0.59) Eosinophils # (Auto) 0.00 K/uL (0-0.5) Basophils # (Auto) 0.02 K/uL (0-0.2) RDW Standard Deviation 57.1 fL (36.4-46.3) RDW Coefficient of Variation 18.4 % (11.5-14.5) Immature Granulocyte % (Auto) 0.3 % Immature Granulocyte # (Auto) 0.03 K/uL (0.00-0.02) Erythrocyte Sedimentation Rate 87 mm/hr (0-21) Prothrombin Time 11.4 SECONDS (9.0-12.0) Prothromb Time International Ratio 1.1 (0.9-1.1) Activated Partial Thromboplast Time 28.7 SECONDS (21.0-31.0) Partial Thromboplastin Ratio 1.1 Anion Gap 8.0 mmol/L (3-11) Est Creatinine Clear Calc Drug Dose 23.5 ml/min Estimated GFR () 38.1 Estimated GFR (Non- 32.9 BUN/Creatinine Ratio 20.1 (10-20) Calcium Level 7.7 mg/dl (8.5-10.1) Total Bilirubin 0.5 mg/dl (0.2-1) Direct Bilirubin 0.3 mg/dl (0-0.2) Aspartate Amino Transf (AST/SGOT) 100 U/L (15-37) Alanine Aminotransferase (ALT/SGPT) 52 U/L (12-78) Alkaline Phosphatase 544 U/L (45-117) Troponin I 0.103 ng/ml (0-0.045) C-Reactive Protein 9.58 mg/dl (0-0.29) Pro-B-Type Natriuretic Peptide 28648 pg/ml (0-1800) Total Protein 7.2 gm/dl (6.4-8.2) Albumin 2.5 gm/dl (3.4-5.0) Procalcitonin 6.03 ng/ml (0-0.5) Laboratory results reviewed by me Medications Administered Medications (Trade) Dose Ordered Sig/Suleiman Route Start Time Stop Time Status Last Admin Dose Admin Aspirin (Aspirin Chew) 324 mg NOW STAT PO 01/30/18 14:02 01/30/18 14:03 DC 01/30/18 14:09 324 MG ECG Per My Interpretation Indication: other (Fever) Rate (beats per minute): 94 Rhythm: normal sinus Findings: ST depression (subtle in III and AvL), other (Normal intervals, LAD) Comparison ECG Date: 12/23/2016 Change: no significant change ED Course 1237: The patient was evaluated in room B6. A complete history and physical exam was performed. 1424: I discussed the case with Dr. Kiera BOO Hospitalist. He will evaluate the patient for further treatment. The patient is agreeable to an inpatient stay. Medical Decision The patient is an 82 year old white female with a past medical history of diabetes, DVT, hypertension, hypocalcemia, hypotension, renal cell carcinoma with mets to bone, renal cell carcinoma with mets to lung, and sepsis who presents to the Emergency Room with complaints of a waxing and waning fever that has been occurring for the past month. Nursing notes reviewed. Ancillary studies and prior records reviewed. Differential diagnosis: Etiologies such as viral syndrome, otitis, pharyngitis, pneumonia, influenza, meningitis, urinary tract infection, sepsis, bacteremia, as well as others were entertained. Patient was seen and evaluated the bedside. Patient has had some mild chest congestion with some low-grade fever that worsened today. T-max 102. Patient denies any acute symptomatic complaints at this time. The patient is thin appearing. The patient did have a recent admission at the end of November at which point she was discharged for Serratia septicemia. Patient does have a history of renal cell carcinoma with metastases. Patient also does have a history of DVT with an IVC filter. Patient had blood work completed, VBG, lactate, blood and urine cultures, urinalysis, and chest x-ray. Patient was given some IV fluids. Patient's VBG fairly unremarkable. Lactate of 2. White blood cell count 11, 000 with left shift. Patient's urinalysis negative. Chest x-ray does show some pulmonary vascular congestion and pulmonary edema. IV fluids were stopped and patient was given some IV Lasix. Patient's troponin was elevated. EKG did show some subtle depressions in the inferior leads. They do not appear to be any acute changes on her EKG. Believe this is may be more demand ischemia related to CHF. I did discuss case with the on-call hospitalist. The patient was given a full dose aspirin. Patient was also given calcium. Patient was admitted to the medicine service. Medication Reconcilliation Current Medication List: was personally reviewed by me Blood Pressure Screening Patient's blood pressure: Normal blood pressure Consults Time Called: 1420 Consulting Physician: Dr. Kiera BOO Hospitalist Returned Call: 1424 I discussed the case with Dr. Kiera BOO Hospitalist. He will evaluate the patient for further treatment. Impression Primary Impression: Fever Additional Impressions: CHF (congestive heart failure) Elevated troponin Hypocalcemia Anemia Scribe Attestation The scribe's documentation has been prepared under my direction and personally reviewed by me in its entirety. I confirm that the note above accurately reflects all work, treatment, procedures, and medical decision making performed by me. Departure Information Dispostion Being Evaluated By Hospitalist Hang Garcia M.D. (PCP) Patient Instructions My [facility] Problem Qualifiers Primary Impression: Fever Fever type: unspecified Qualified Codes: R50.9 - Fever, unspecified Additional Impressions: CHF (congestive heart failure) Heart failure type: systolic Heart failure chronicity: acute on chronic Qualified Codes: I50.23 - Acute on chronic systolic (congestive) heart failure Anemia Anemia type: unspecified type Qualified Codes: D64.9 - Anemia, unspecified
[2018-01-30 13:49] LABS: TOTAL PROTEIN 7.2 gm/dl (6.4-8.2)
[2018-01-30] MEDS ORDERED: ASPIRIN 324 MG CHEW PO STA (14:02)
[2018-01-30] MEDS ORDERED: FUROSEMIDE 40 MG/4 ML VIAL IV STA (14:10)
[2018-01-30] MEDS ORDERED: ALUMINUM/MAGNESIUM/SIMETH (MAALOX MAX) 30 ML UDC PO PRN (15:45)
[2018-01-30] MEDS ORDERED: GLUCOSE 10 TABS/TUBE PO PRN (15:45)
[2018-01-30] MEDS ORDERED: POLYETHYLENE (MIRALAX) 17 GM PACK PO PRN (15:45)
[2018-01-30] MEDS ORDERED: SENNA 8.6 MG TAB PO PRN (15:45)
[2018-01-30] MEDS ORDERED: GLUCOSE 40% GEL 15 GM TUBE PO PRN (15:45)
[2018-01-30] MEDS ORDERED: MAGNESIUM HYDROXIDE SUSP 30 ML UDC PO PRN (15:45)
[2018-01-30] MEDS ORDERED: ACETAMINOPHEN IV 100 ML IV PRN (15:45)
[2018-01-30] MEDS ORDERED: DEXTROSE 50% 50 ML SYR IV PRN (15:45)
[2018-01-30] MEDS ORDERED: GLUCAGON FOR INJ 1 MG VIAL SQ PRN (15:45)
[2018-01-30] MEDS ORDERED: CARBOHYDRATES FOR HYPOGLYCEMIA PO PRN (15:45)
[2018-01-30] MEDS ORDERED: HYDROCODONE/ACETAMINOPHEN 7.5/325MG TAB PO PRN (15:45)
[2018-01-30] MEDS ORDERED: ACETAMINOPHEN 325 MG TAB PO PRN (15:45)
[2018-01-30] MEDS ORDERED: INSU3INJ3 SC (15:48)
--- NOTE | 2018-01-30 16:25 | History and Physical ---
History & Physical Date & Time of Service: January 30, 2018 at 15:59 Chief Complaint: FEVER Primary Care Physician: Hang Lomeli M.D. History of Present Illness Source: patient, family (daughters at bedside), clinic records, hospital records This is an 82 y/o female with a history of HTN, chronic diastolic CHF, DM II, renal cell carcinoma w/mets to lung/bone/pancreas, CKD stage III s/p left nephrectomy, hypothyroidism, and h/o DVT s/p IVC filter who presented to the ED on 01/30 with fever and lethargy. The patient has a history of frequent/ intermittent fevers for the last year with frequent infections. The patient has had several UTIs and a few bouts of C. diff in the past. Two nights ago, the patient developed low grade fevers with associated chills, but had felt better the following morning. That night she again had fevers but again felt better this morning initially. Later in the day she developed fevers again, with Tmax 102F, chills and lethargy. Pt's daughter denies any recent weight gain or increased swelling of the lower extremities. She states the patient's legs are around baseline, perhaps even slightly less swollen. The patient denies any urinary symptoms or diarrhea. She denies chest pain. The patient denies chest pain, palpitations, claudication, cough, wheezing, shortness of breath, nausea, vomiting, abdominal pain, dysuria, hematuria, urinary retention , paralysis, weakness, numbness and tingling. Past Medical/Surgical History Medical Problems: (1) Acute renal failure (2) Altered mental status (3) Anemia (4) Cholecystitis (5) Dehydration (6) Diabetes (7) DVT (deep venous thrombosis) (8) Fever (9) Hypertension (10) Hypocalcemia (11) Hypotension (12) Intestinal infection, enteritis due to small round viruses (SRVS) (13) Leukocytosis (14) Liver enzyme elevation (15) Metastatic renal cell carcinoma to bone (16) Metastatic renal cell carcinoma to lung (17) Pneumonia (18) Secondary hyperparathyroidism (19) Sepsis (20) Sepsis (21) Sepsis (22) Systemic inflammatory response syndrome (23) UTI (urinary tract infection) (24) UTI (urinary tract infection) (25) UTI (urinary tract infection) (26) Weakness HTN Chronic diastolic CHF DM II Renal cell carcinoma w/mets to lungs, bone, pancreas CKD stage III H/o left nephrectomy Chronic left humeral fracture Hypothyroidism H/o DVT s/p IVC filter H/o C-sections Biliary stent, s/p ERCP x 2 Family History Diabetes mellitus Heart disease Hypertension Social History Smoking Status: Never Smoker Smokeless Tobacco Use: No Alcohol Use: none Drug Use: none Marital Status: Housing status: lives with family (with 2 daughters) Occupational Status: retired Immunizations History of Influenza Vaccine: Yes History of Tetanus Vaccine?: Unknown History of Pneumococcal: Yes History of Hepatitis B Vaccine: No Allergies Coded Allergies: Adhesives (Verified Allergy, Mild, LOCAL SKIN IRRITATION, BLISTERS, 01/30/18 ) Uncoded Allergies: ANTICOAGULANTS (Adverse Reaction, Intermediate, INCREASED INR -PER FAMILY, 05/20/17) Home Medications Scheduled Calcium Carbonate (Calcium), 500 MG PO QAM Cyanocobalamin (Cyanocobalamin), 1 TAB PO DAILY Denosumab (Xgeva), 1 DOSE SQ MONTHLY Fentanyl (Duragesic), 50 MCG TD [id number] Ferrous Sulfate (Kp Ferrous Sulfate), 1 TAB PO Q2D Furosemide (Lasix), 20 MG PO 4XWK Insulin Detemir (Levemir Flextouch), 12 UNITS SQ QAM Insulin Detemir (Levemir Flextouch), 10 UNITS SC QPM Lactobacillus-Inulin (Culturelle), 1 CAP PO QAM Levothyroxine Sodium (Levothyroxine Sodium), 200 MCG PO QAM Nivolumab (Opdivo), 1 DOSE IV [id number] Vancomycin Hcl (Vancomycin), 1 CAP PO QAM Scheduled PRN Acetaminophen (Tylenol), 1,000 MG PO UD PRN for Pain Hydrocodone/Acetaminophen 7.5MG/325MG ([place] 7.5MG/325MG), 1 TAB PO Q4H PRN for Pain Ibuprofen Tab (Motrin), 400 MG PO UD PRN for Pain Ondansetron Hcl (Zofran), 8 MG PO Q8 PRN for Nausea Polyethylene Glycol 3350 (Miralax), 17 GM PO DAILY PRN for Constipation Sennosides (Senokot), 1 TAB PO QAM PRN for Constipation Miscellaneous Medications Darbepoetin Eddie-Polysorbate 8 (Aranesp Albumin Free) Review of Systems Constitutional: +Fevers, chills, sweats, tired, weak Eyes: No worsening of vision, No eye pain, No diplopia ENT: No hearing loss, No nasal symptoms, No trouble swallowing Respiratory: No cough, No wheezing, No shortness of breath Cardiovascular: No chest pain, No claudication, No palpitations Abdomen: No pain, No nausea, No vomiting, no diarrhea Musculoskeletal: No joint pain, No muscle pain, No swelling Genitourinary - Female: No dysuria, No urinary retention, No hematuria Neurologic: No paralysis, No weakness, No numbness/tingling Integumentary: No rash, No itch, No color change Physical Exam Vital Signs Date Time Temp Pulse Resp B/P (MAP) Pulse Ox O2 Delivery O2 Flow Rate FiO2 01/30/18 15:49 78 18 108/54 97 Room Air 01/30/18 14:08 Nasal Cannula 2.0 01/30/18 14:05 84 16 109/52 92 Room Air 01/30/18 13:47 90 01/30/18 13:32 91 18 110/52 92 Room Air 01/30/18 12:23 37.0 103 18 109/64 93 Room Air General appearance: +Appears chronically ill. Well-developed, no apparent distress Head: Normocephalic, atraumatic Eyes: Normal inspection, PERRL, EOMI ENT: +Oral mucosa very dry. Normal ENT inspection, hearing grossly normal, pharynx normal Neck: Supple, no JVD, trachea midline Respiratory/Chest: +On 2L NC. Lungs clear to auscultation, normal breath sounds, no respiratory distress Cardiovascular: +Systolic murmur. Regular rate & rhythm, no gallop Abdomen/GI: Normal bowel sounds, non-tender, soft Extremities/Musculoskeletal: +1-2+ pitting edema, at baseline per family. Normal inspection, no calf tenderness Neurological/Psych: +Lethargic but oriented. Normal mood/affect, oriented x 3 Skin: Normal color, warm/dry, no rash Diagnostics Laboratory Results Results Past 24 Hours Test 01/30/18 13:00 01/30/18 13:06 Range/Units Influenza Type A Antigen Neg for Influ A NEG Influenza Type B Antigen Neg for Influ B NEG White Blood Count 11.04 4.8-10.8 K/uL Red Blood Count 3.74 4.2-5.4 M/uL Hemoglobin 9.7 12.0-16.0 g/dL Hematocrit 31.4 37-47 % Mean Corpuscular Volume 84.0 80-100 fL Mean Corpuscular Hemoglobin 25.9 25-34 pg Mean Corpuscular Hemoglobin Concent 30.9 32-36 g/dl Platelet Count 247 130-400 K/uL Mean Platelet Volume 9.4 7.4-10.4 fL Neutrophils (%) (Auto) 90.5 % Lymphocytes (%) (Auto) 3.6 % Monocytes (%) (Auto) 5.4 % Eosinophils (%) (Auto) 0.0 % Basophils (%) (Auto) 0.2 % Neutrophils # (Auto) 9.99 1.4-6.5 K/uL Lymphocytes # (Auto) 0.40 1.2-3.4 K/uL Monocytes # (Auto) 0.60 0.11-0.59 K/uL Eosinophils # (Auto) 0.00 0-0.5 K/uL Basophils # (Auto) 0.02 0-0.2 K/uL RDW Standard Deviation 57.1 36.4-46.3 fL RDW Coefficient of Variation 18.4 11.5-14.5 % Immature Granulocyte % (Auto) 0.3 % Immature Granulocyte # (Auto) 0.03 0.00-0.02 K/uL Prothrombin Time 11.4 9.0-12.0 SECONDS Prothromb Time International Ratio 1.1 0.9-1.1 Activated Partial Thromboplast Time 28.7 21.0-31.0 SECONDS Partial Thromboplastin Ratio 1.1 Sodium Level 136 136-145 mmol/L Potassium Level 4.5 3.5-5.1 mmol/L Chloride Level 105 98-107 mmol/L Carbon Dioxide Level 23 21-32 mmol/L Anion Gap 8.0 3-11 mmol/L Blood Urea Nitrogen 30 7-18 mg/dl Creatinine 1.47 0.60-1.20 mg/dl Est Creatinine Clear Calc Drug Dose 23.5 ml/min Estimated GFR () 38.1 Estimated GFR (Non- 32.9 BUN/Creatinine Ratio 20.1 10-20 Random Glucose 197 70-99 mg/dl Calcium Level 7.7 8.5-10.1 mg/dl Total Bilirubin 0.5 0.2-1 mg/dl Direct Bilirubin 0.3 0-0.2 mg/dl Aspartate Amino Transf (AST/SGOT) 100 15-37 U/L Alanine Aminotransferase (ALT/SGPT) 52 12-78 U/L Alkaline Phosphatase 544 45-117 U/L Troponin I 0.103 0-0.045 ng/ml Pro-B-Type Natriuretic Peptide 26277 0-1800 pg/ml Total Protein 7.2 6.4-8.2 gm/dl Albumin 2.5 3.4-5.0 gm/dl Microbiology Results 01/30/18 Blood Culture, Received Pending 01/30/18 Blood Culture, Received Pending Diagnostic Radiology Reviewed the following studies and agree with interpretation as follows: CHEST ONE VIEW PORTABLE HISTORY: 82 years-old Female FEVER acute fever COMPARISON: Chest radiograph 12/24/2017 TECHNIQUE: Portable AP view the chest FINDINGS: Cardiac silhouette is again enlarged, unchanged. Atherosclerosis of the aorta. Pulmonary vascular congestion with mild interstitial coarsening. Trace bilateral pleural effusions with subsegmental bibasilar opacities suggesting atelectasis. No pneumothorax. Demineralized appearance of the bones with displaced subacute chronic appearing left proximal humeral fracture, unchanged. Left upper rib lesion is unchanged. Vascular stent and surgical clips project over the upper abdomen. IMPRESSION: 1. Cardiomegaly with mild pulmonary vascular congestion and interstitial coarsening suggesting mild pulmonary edema. 2. Trace bilateral pleural effusions with bibasilar subsegmental opacities favoring atelectasis. EKG Reviewed EKG and agree with interpretation as follows: 94 bpm, NSR Impression Assessment and Plan 82 y/o female with a history of HTN, chronic diastolic CHF, DM II, renal cell carcinoma w/mets to lung/bone/pancreas, CKD stage III s/p left nephrectomy, hypothyroidism, and h/o DVT s/p IVC filter who presented to the ED on 01/30 with fever and lethargy. Tmax 102 at home, however afebrile on arrival. BP borderline low at 108/54. Non-hypoxic on arrival, but did drop down to 88% and placed on 2L. CXR shows mild pulmonary edema. EKG no ischemic changes. Troponin mildly elevated at 0.1. Fever of unknown origin, lethargy, weakness -Admit to telemetry for observation due to elevated troponin -Blood cultures pending -UA and urine cultures pending -No diarrhea currently, will not test for C. diff at this time -Rapid flu negative -Check ESR, CRP, procalcitonin -Consult infectious disease -Empiric Zosyn for now Possible acute on chronic diastolic CHF -CXR read as mild pulmonary edema, however pt appears dry -Pt received 500 cc NSS in ED (not 2L as listed) and did NOT receive IV Lasix -Pt only takes Lasix 20 mg PO 4x/week (///), took one dose this morning prior to arrival -Will give another dose tomorrow morning and then resume home schedule. Pt has h/o being very sensitive to IV Lasix, appears dry, and only has 1 kidney so will be cautious w/diuresis -Daily weights, monitor I's & O's Elevated troponin--denies chest pain, no EKG changes -Trend troponin q8h x3, monitor on tele HTN--stable, borderline low. Pt no longer on antihypertensives DM II--last HgbA1c 8.8 on 12/24/17 -Continue Levemir 12 units SC qam and 10 units SC qpm -Insulin sliding scale -Check BSGs q ac and qhs Renal cell carcinoma w/mets to lungs, bone, pancreas--noted -Pt on Opdivo, Xgeva Recurrent C. diff -Continue chronic vanc 125 mg PO qd CKD stage III, h/o L nephrectomy--stable -Baseline creatinine 1.3-1.6 -Creatinine 1.47 on admission, monitor w/Lasix Hypothyroidism -Continue Synthroid 200 mcg PO qd DVT prophylaxis -H/o bad reactions to anticoagulants in the past -EUSEBIA wiley and David Code Status -Level V, DO NOT RESUSCITATE Resuscitation Status VTE Prophylaxis Will order VTE Prophylaxis: Yes Reason for no VTE drug order: Drug allergy
[2018-01-30] MEDS ORDERED: PIPERACILL/TAZOBAC CONSULT ACTIVE PRN (16:30)
[2018-01-30] MEDS ORDERED: IV FLUIDS COMPLETED PRN (16:45)
[2018-01-30] MEDS ORDERED: PIPERACILL/TAZOBAC IV 3.375 GM in NSS 100 ML IV ONE (17:00)
[2018-01-30 17:03] VITALS: BP 114/56; PULSE 81; TEMP 36.6; O2SAT 97; BMI 25.0
[2018-01-30] MEDS: INSULIN ASPART 100 UNITS/ML 3 ML PEN SC SCH ×2 (17:13→22:01)
[2018-01-30] MEDS ORDERED: PIPERACILL/TAZOBAC IV 3.375 GM in DEXTROSE 5% 100ML 100 ML IV SCH (18:00)
[2018-01-30 19:19] VITALS: BP 105/44; PULSE 79; TEMP 36.5; O2SAT 95
[2018-01-30 20:00] VITALS: O2SAT 96
[2018-01-30] MEDS: INSULIN DETEMIR FLEXPEN/FLEX TOUCH 100 UNITS/ML 3ML SC SCH (22:02)
[2018-01-30 23:42] VITALS: BP 108/42; PULSE 76; TEMP 36.7; O2SAT 96
[2018-01-30 23:59] VITALS: O2SAT 96
[2018-01-31] VITALS (7 sets, daily range): BP systolic 102–110; BP diastolic 44–52; PULSE 74–95; TEMP 36.5–37.7; O2SAT 93–97; BMI 25.0
[2018-01-31] MEDS: PIPERACILL/TAZOBAC IV 3.375 GM in NSS 100ML IV SCH ×4 (00:07→23:03)
[2018-01-31] MEDS: CHECK FENTANYL PATCH PLACEMENT SCH ×4 (00:14→23:07)
[2018-01-31] MEDS: LEVOTHYROXINE 200 MCG TAB PO SCH (05:42)
[2018-01-31 05:54] LABS: HEMATOCRIT 34.7 % (37-47); MEAN CELL VOLUME 85.7 fL (80-100); MEAN CORPUSCULAR HEMOGLOBIN 27.2 pg (25-34); MEAN CORPUSCULAR HGB CONC 31.7 g/dl (32-36); MEAN PLATELET VOLUME 10.4 fL (7.4-10.4); PLATELET COUNT 280 K/uL (130-400); RED CELL DISTRIBUTION WIDTH CV 18.5 % (11.5-14.5); RED CELL DISTRIBUTION WIDTH SD 58.6 fL (36.4-46.3); WHITE BLOOD COUNT 7.19 K/uL (4.8-10.8)
[2018-01-31 06:35] LABS: ALBUMIN 2.4 gm/dl (3.4-5.0); CALCIUM 7.8 mg/dl (8.5-10.1); CREATININE 1.71 mg/dl (0.60-1.20); POTASSIUM 4.8 mmol/L (3.5-5.1)
[2018-01-31 06:43] LABS: TOTAL PROTEIN 7.4 gm/dl (6.4-8.2)
[2018-01-31] MEDS ORDERED: PHARMACY GLYCEMIC MGMT CONSULT PRN (07:24)
[2018-01-31] MEDS ORDERED: INSULIN HUMAN REGULAR PER UNIT 6 UNITS in SYRINGE 5.94 ML IV SCH (07:45)
[2018-01-31] MEDS: RASPBERRY SYRUP 5 ML UDP PO SCH (08:47)
[2018-01-31] MEDS: VANCOMYCIN HCL 125 MG/2.5ML SOLN PO SCH (08:47)
[2018-01-31] MEDS: SODIUM CHLORIDE 0.9% 1000ML 1,000 ML IV SCH ×2 (08:53→18:24)
[2018-01-31] MEDS ORDERED: INSULIN DETEMIR FLEXPEN/FLEX TOUCH 100 UNITS/ML 3ML SQ SCH ×2 (09:00)
[2018-01-31] MEDS ORDERED: FUROSEMIDE 20 MG TAB PO ONE (09:00)
[2018-01-31] MEDS: INSULIN ASPART 100 UNITS/ML 3 ML PEN SC SCH ×4 (10:13→21:46)
[2018-01-31 12:16] LABS: CALCIUM 6.9 mg/dl (8.5-10.1); CREATININE 1.72 mg/dl (0.60-1.20); POTASSIUM 4.4 mmol/L (3.5-5.1)
[2018-01-31] MEDS ORDERED: INSULIN ASPART 100 UNITS/ML 3 ML PEN SC STA (12:39)
[2018-01-31] MEDS ORDERED: NURSING VERBAL MED ORDER ONE (12:45)
--- NOTE | 2018-01-31 15:01 | DIAGNOSTIC IMAGING REPORT ---
HEPATOBILIARY HIDA IMAGING HISTORY: Cholecystitis. Pain. Gallstones, biliary stent, look for cholecystitis, obstruction COMPARISON: Right upper quadrant ultrasound 12/24/2017. CT abdomen and pelvis 12/25/2017 TECHNIQUE: Immediately following the intravenous administration of 4.7 mCi Tc-99m Choletec, dynamic anterior abdominal imaging was performed. FINDINGS: Uniform radiotracer accumulation is shown. A biliary stent is in place. Gallbladder is not identified to 60 minutes. Delayed images to 90 minutes with oral administration of water remains negative for imaging of the gallbladder. There is small bowel activity beginning at approximately 25 to 35 minutes. The common bile duct stent appears to be patent.. IMPRESSION: 1. The common bile duct stent appears to be patent. 2. No evidence for gallbladder activity to 90 minutes. 3. The appearance suggests acute calculus cholecystitis. The above report was generated using voice recognition software. It may contain grammatical, syntax or spelling errors. Electronically signed by: Gordon Marvin M.D. 01/31/2018 3:00 PM Dictated Date/Time: 01/31/2018 2:56 PM
--- NOTE | 2018-01-31 15:08 | Progress Note ---
Progress Note Date of Service January 31, 2018. Progress Note ID Consult Dictated #[id number] A/P: 1. Fever Await HIDA results, follow cultures, continue abx -thank you
--- NOTE | 2018-01-31 15:50 | INFECT. DISEASE CONSULTATION ---
DATE OF CONSULTATION: 01/31/2018 HISTORY OF PRESENT ILLNESS: This is an 82-year-old female who was admitted to the hospital with subjective fevers and chills at home. She was recently hospitalized and treated for urinary tract infection with systemic antibiotics. She is also found to have C. diff in the past and was last put on suppressive oral vancomycin, which she was taking at home. Prior to this admission, she continues on this. In the ER, she was placed on empiric Zosyn and appears to be tolerating this well. She did have a temperature of 37.7 this morning, but she has otherwise been afebrile. She states that she is feeling better this afternoon. She did have a HIDA scan just prior to my exam. Results of this are pending. She denies any nausea, vomiting, diarrhea or abdominal pain. She has no chest pain, cough, shortness of breath. 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 She is tolerating Zosyn well. She currently denies any shakes or chills. Her family is at the bedside. They are concerned, as she would require any gallbladder surgery. They would request Dr. Fierro to do any procedure. REVIEW OF SYSTEMS: Her remaining review of systems is reviewed and unremarkable. PAST MEDICAL HISTORY: Significant for anemia, history of cholecystitis, diabetes, DVT, hypertension, hypocalcemia, metastatic renal cell carcinoma to lung, bone and pancreas hyperparathyroidism, chronic kidney disease, recurrent urinary tract infection and history of C. diff, hypothyroidism, DVT with IVC filter, and history of nephrectomy. PAST SURGICAL HISTORY: Significant for nephrectomy, IVC filter placement, C-sections, biliary stenting and ERCP. FAMILY HISTORY: Noncontributory. SOCIAL HISTORY: Unremarkable. ALLERGIES: INCLUDE ADHESIVE TAPE AND ANTICOAGULATION. CURRENT MEDICATIONS: Include iron, fentanyl, vancomycin oral, Flexeril, Synthroid, Zosyn, insulin, magnesium, Maalox, Zofran, MiraLax, acetaminophen, and hydrocodone. PHYSICAL EXAMINATION: VITAL SIGNS: She currently has a temperature of 37.7 at 12:00 noon that is her T-max. Pulse 83, respiratory rate 20, blood pressure 109/44, oxygen saturation is 94%-97% on room air. GENERAL: She is awake, alert and oriented x3. She is in no acute distress. HEENT: Mucous membranes are moist. Extraocular muscles are intact. HEART: Regular. LUNGS: Clear with decreased breath sounds at the bases. ABDOMEN: Soft and nondistended. EXTREMTIES: There is no tenderness to palpation. SKIN: No rash. LABORATORY STUDIES: CBC today, white blood cell count 7.1, hemoglobin 11, platelets 280, sed rate 87. Chemistry panel: Sodium 133, potassium 4.4, chloride 103, bicarbonate 18, BUN 38, creatinine 1.7, glucose 388. Procalcitonin was elevated at 20. UA, trace leukocyte esterase, 1-5 WBCs and no bacteria. Flu swab was negative. Blood cultures are pending. Urine culture is contaminated. Chest x-ray done in the ER shows mild vascular congestion. HIDA scan is pending. ASSESSMENT AND PLAN: Fever, infectious versus noninfectious sources should be entertained. HIDA scan is pending. She will remain on empiric antibiotics. Pending blood culture results as well as HIDA scan results. She will remain on oral vancomycin due to her history of C. diff.
[2018-01-31] MEDS: INSULIN DETEMIR FLEXPEN/FLEX TOUCH 100 UNITS/ML 3ML SC SCH (21:49)
--- NOTE | 2018-01-31 22:33 | Progress Note ---
Subjective Date of Service: January 31, 2018. 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 PO for C diff recently hospitalized at [facility] for chest pain, normal echo, no stress test performed on exam she did not have any abdominal pain, she really had no complaints except for fevers reviewed recent records, known to have gall stones but never cholecystitis known to have biliary stent, permanent, was patent on recent imaging since she did not have signs of UTI or pneumonia, discussed getting HIDA scan, patient and family agreed HIDA showed acute calculous cholecystitis, biliary stent was patent discussed results with patient and family, explained that surgery would in all likelihood not be a good option if she would decline clinically then a percutaneous drain would be the best treatment explained that we do not perform drains here at [facility] patient and family wanted to discuss with Dr. Fierro, trust his opinion as her surgeon agreed with need for surgery consult, explained that Dr. Fierro may not be on this weekend discussed that vitals stable, WBC normal, responding to Zosyn for now so transfer not emergent Problem List Medical Problems: (1) Acute renal failure Status: Acute (2) Altered mental status Status: Acute (3) Anemia Status: Acute (4) CHF (congestive heart failure) Status: Acute (5) Dehydration Status: Acute (6) Elevated troponin Status: Acute (7) Fever Status: Acute (8) Intestinal infection, enteritis due to small round viruses (SRVS) Status: Acute (9) Leukocytosis Status: Acute (10) Pneumonia Status: Acute (11) Sepsis Status: Acute (12) Sepsis Status: Acute (13) Systemic inflammatory response syndrome Status: Acute (14) UTI (urinary tract infection) Status: Acute (15) UTI (urinary tract infection) Status: Acute (16) UTI (urinary tract infection) Status: Acute (17) Weakness Status: Acute Review of Systems Constitutional: + fever, + chills, + sweats, + weakness, + fatigue Abdomen: No pain, No nausea, No vomiting, No diarrhea Neurologic: + weakness All Other Systems: Reviewed and Negative Medications Current Inpatient Medications Medications (Trade) Dose Ordered Sig/Suleiman Route Start Time Stop Time Status Last Admin Dose Admin Acetaminophen (Tylenol Tab) 650 mg Q4H PRN PO 01/30/18 15:45 03/01/18 15:44 01/31/18 08:43 650 MG Al Hydrox/Mg Hydrox/Simethicone (Maalox Max Susp) 15 ml Q4H PRN PO 01/30/18 15:45 03/01/18 15:44 Magnesium Hydroxide (Milk Of Magnesia Susp) 30 ml Q12H PRN PO 01/30/18 15:45 03/01/18 15:44 Ondansetron HCl (Zofran Inj) 4 mg Q6H PRN IV 01/30/18 15:45 03/01/18 15:44 Polyethylene (Miralax Powder Packet) 17 gm DAILY PRN PO 01/30/18 15:45 03/01/18 15:44 Glucose (Glucose 40% Gel) 15-30 GRAMS 15 GRAMS... UD PRN PO 01/30/18 15:45 03/01/18 15:44 Glucose (Glucose Chew Tab) 4-8 Tablets 4 Tabl... UD PRN PO 01/30/18 15:45 03/01/18 15:44 Dextrose (Dextrose 50% 50ML Syringe) 25-50ML 25ML FOR ... UD PRN IV 01/30/18 15:45 03/01/18 15:44 Glucagon (Glucagon Inj) 1 mg UD PRN SQ 01/30/18 15:45 03/01/18 15:44 Carbohydrates (Carbohydrates For Hypoglycemia) 15-30 GRAMS 15 grams if BSG 54-69... UD PRN PO 01/30/18 15:45 03/01/18 15:44 Acetaminophen 100 ml @ 400 mls/hr Q8H PRN IV 01/30/18 15:45 03/01/18 15:44 Fentanyl (Duragesic Patch) 50 mcg Q72H TD 02/01/18 08:00 02/15/18 07:59 Acetaminophen/ Hydrocodone Bitart ([place] 7.5/325 Tab) 1 tab Q4H PRN PO 01/30/18 15:45 02/13/18 15:44 Insulin Detemir (Levemir Flexpen/ FlexTouch) 10 units QPM SC 01/30/18 21:00 03/01/18 20:59 01/31/18 21:49 10 UNITS Levothyroxine Sodium (Synthroid Tab) 200 mcg DAILYBB PO 01/31/18 06:00 03/02/18 06:59 01/31/18 05:42 200 MCG Senna (Senokot Tab) 8.6 mg QAM PRN PO 01/30/18 15:45 03/01/18 15:44 Vancomycin HCl (Vancomycin Oral Soln) 125 mg QAM PO 01/31/18 09:00 03/02/18 08:59 01/31/18 08:47 125 MG Ferrous Sulfate (Feosol Tab) 325 mg Q2D@0900 PO 02/01/18 09:00 03/03/18 08:59 Insulin Aspart (novoLOG ASPART) SLIDING SCALE G... ACHS SC 01/30/18 16:00 03/01/18 15:59 01/31/18 21:46 1 UNITS Miscellaneous Information (Consult) 1 ea UD PRN N/A 01/30/18 16:30 03/01/18 16:29 Miscellaneous (Iv Fluids Completed) 1 ea PRN PRN N/A 01/30/18 16:45 01/30/19 16:44 Miscellaneous Information (Check Fentanyl Patch Placement) 1 ea QS N/A 01/31/18 00:00 03/02/18 00:00 01/31/18 17:36 1 EA Miscellaneous (Fentanyl Patch Remove & Waste) 1 ea Q72H N/A 02/01/18 07:59 03/03/18 07:58 Raspberry (Raspberry Syrup 5ml Cup) 5 ml DAILY PO 01/31/18 09:00 02/14/18 08:59 01/31/18 08:47 5 ML Piperacillin Sod/ Tazobactam Sod 3.375 gm/Sodium Chloride 115 ml @ 28.75 mls/ hr Q8H IV 01/30/18 23:00 02/01/18 22:59 01/31/18 15:43 28.75 MLS/HR Insulin Detemir (Levemir Flexpen/ FlexTouch) 20 units QAM SQ 01/31/18 09:00 03/02/18 08:59 01/31/18 10:09 20 UNITS Sodium Chloride 1,000 ml @ 100 mls/hr Q10H IV 01/31/18 08:00 03/02/18 07:59 01/31/18 18:24 100 MLS/HR Objective Vital Signs Date Time Temp Pulse Resp B/P (MAP) Pulse Ox O2 Delivery O2 Flow Rate FiO2 01/31/18 20:00 Room Air 01/31/18 19:33 36.6 74 18 106/45 (65) 95 Room Air 01/31/18 17:00 Room Air 01/31/18 16:33 78 20 110/47 (68) 95 Room Air 01/31/18 12:00 Room Air 01/31/18 12:00 37.7 83 20 109/44 (65) 94 Room Air 01/31/18 07:30 Room Air 01/31/18 07:28 36.8 95 18 102/52 (69) 97 Room Air 01/31/18 04:00 96 Room Air 01/31/18 03:24 36.5 81 16 108/47 (67) 93 Room Air 01/30/18 23:59 96 Room Air 01/30/18 23:42 36.7 76 16 108/42 (64) 96 Room Air Physical Exam General Appearance: no apparent distress, + thin Eyes: normal inspection, EOMI, sclerae normal ENT: normal ENT inspection, hearing grossly normal, pharynx normal Neck: supple, no adenopathy, no JVD, trachea midline Respiratory/Chest: chest non-tender, lungs clear, no respiratory distress, no accessory muscle use, + decreased breath sounds (bases) Cardiovascular: regular rate, rhythm, no edema, no gallop, no JVD, + systolic murmur Abdomen: normal bowel sounds, non tender (pressed hard in RUQ, no pain elicited ), soft (no rebound or rigidity), no organomegaly Extremities: normal range of motion, non-tender, normal inspection, no pedal edema, no calf tenderness, pelvis stable Neurologic/Psychiatric: 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, alert, normal mood/affect, oriented x 3, + motor weakness (generalized) Skin: normal color, warm/dry, no rash Laboratory Results Last 24 Hours Test 01/31/18 05:11 01/31/18 07:18 01/31/18 11:13 01/31/18 11:43 White Blood Count 7.19 K/uL Red Blood Count 4.05 M/uL Hemoglobin 11.0 g/dL Hematocrit 34.7 % Mean Corpuscular Volume 85.7 fL Mean Corpuscular Hemoglobin 27.2 pg Mean Corpuscular Hemoglobin Concent 31.7 g/dl RDW Standard Deviation 58.6 fL RDW Coefficient of Variation 18.5 % Platelet Count 280 K/uL Mean Platelet Volume 10.4 fL Sodium Level 133 mmol/L 133 mmol/L Potassium Level 4.8 mmol/L 4.4 mmol/L Chloride Level 103 mmol/L 103 mmol/L Carbon Dioxide Level 18 mmol/L 18 mmol/L Anion Gap 12.0 mmol/L 12.0 mmol/L Blood Urea Nitrogen 35 mg/dl 38 mg/dl Creatinine 1.71 mg/dl 1.72 mg/dl Est Creatinine Clear Calc Drug Dose 20.2 ml/min 20.1 ml/min Estimated GFR () 31.8 31.5 Estimated GFR (Non- 27.4 27.2 BUN/Creatinine Ratio 20.5 22.3 Random Glucose 366 mg/dl 388 mg/dl Calcium Level 7.8 mg/dl 6.9 mg/dl Total Bilirubin 0.8 mg/dl Direct Bilirubin 0.4 mg/dl Aspartate Amino Transf (AST/SGOT) 57 U/L Alanine Aminotransferase (ALT/SGPT) 42 U/L Alkaline Phosphatase 488 U/L Troponin I 0.063 ng/ml Total Protein 7.4 gm/dl Albumin 2.4 gm/dl Beta-Hydroxybutyric Acid 37.38 mg/dL 26.42 mg/dL Bedside Glucose 383 mg/dl 398 mg/dl Test 01/31/18 11:45 01/31/18 14:16 01/31/18 16:37 01/31/18 21:00 Procalcitonin 20.60 ng/ml Bedside Glucose 318 mg/dl 216 mg/dl 116 mg/dl Assessment and Plan 82 y/o female with a history of HTN, chronic diastolic CHF, DM II, renal cell carcinoma w/mets to lung/bone/pancreas, CKD stage III s/p left nephrectomy, hypothyroidism, and h/o DVT s/p IVC filter who presented to the ED on 01/30 with fever and lethargy. Tmax 102 at home, however afebrile on arrival. BP borderline low at 108/54. Non-hypoxic on arrival, but did drop down to 88% and placed on 2L. CXR shows mild pulmonary edema. EKG no ischemic changes. Troponin mildly elevated at 0.1. Acute calculous cholecystitis h/o gall stones for years, never developed acute infection until now HIDA scan with no filling of gall bladder after 90 minutes, her biliary stent was patent however WBC now normal, continues with fevers, no pain in RUQ, no vomiting or nausea procalcitonin markedly high at 20 treat with Zosyn IV, Vancomycin IV for now follow up on blood cultures Tylenol IV for fevers consult general surgery, patient prefers Dr. Fierro but understands call schedule on weekend explained that surgery would likely not be recommended and percutaneous drain would be safest way treat infection updated family in detail at the bedside Elevated troponin--denies chest pain, no EKG changes troponin peaked at 0.12, likely demand ischemia, no further work up patient had full work up recently at [facility] with echocardiogram can request records in case she would need surgical clearance DM with hyperglycemia, mild DKA family says that patient typically runs in high 200's at home, they prefer to keep her there gets symptoms of hypoglycemia in 100's typically on Levemir 10 units BID, they do not use Novolog at home sugars 380 this morning, bicarb low with elevated anion gap should not have DKA given the fact that she is getting insulin gave Levemir 20 units, Novolog SS sugars down to 100's in the evening resume Levemir 10 units BID, patient will be allowed to eat for time being, poor appetite monitor closely for hypoglycemiaj Acute kidney injury on CKD stage III/IV h/o nephrectomy so only one kidney start fluids at 100cc/hr, monitor UO Cr up to 1.7 from 1.47, did receive Lasix on admission for suspected CHF hold nephrotoxins Suspected acute on chronic diastolic heart failure no diuresis, Cr up to 1.7, patient actually dry and dehydrated start on IV fluids hold Lasix, monitor volume status HTN--stable, borderline low. Pt no longer on antihypertensives Renal cell carcinoma w/mets to lungs, bone, pancreas--noted -Pt on Opdivo, Xgeva Recurrent C. diff -Continue chronic vanc 125 mg PO qd Hypothyroidism -Continue Synthroid 200 mcg PO qd DVT prophylaxis -H/o bad reactions to anticoagulants in the past -EUSEBIA wiley and CASSIDYs Code Status -Level V, DO NOT RESUSCITATE keep on tele, consult general surgery for recommendations on cholecystitis family and patient understand that prognosis is guarded
[2018-02-01] MEDS: ONDANSETRON INJ 2 MG/ML 2 ML VIAL IV PRN (03:19)
[2018-02-01 03:23] VITALS: BP 140/57; PULSE 92; TEMP 37; O2SAT 96
[2018-02-01] MEDS: SODIUM CHLORIDE 0.9% 1000ML 1,000 ML IV SCH ×3 (04:53→20:45)
[2018-02-01 05:33] LABS: HEMOGLOBIN 8.7 g/dL (12.0-16.0); MEAN CELL VOLUME 82.1 fL (80-100); MEAN CORPUSCULAR HEMOGLOBIN 26.4 pg (25-34); MEAN CORPUSCULAR HGB CONC 32.2 g/dl (32-36); MEAN PLATELET VOLUME 9.8 fL (7.4-10.4); PLATELET COUNT 246 K/uL (130-400); RED CELL DISTRIBUTION WIDTH CV 18.5 % (11.5-14.5); RED CELL DISTRIBUTION WIDTH SD 55.6 fL (36.4-46.3); WHITE BLOOD COUNT 9.15 K/uL (4.8-10.8)
[2018-02-01 06:08] LABS: ALBUMIN 1.9 gm/dl (3.4-5.0); CALCIUM 6.8 mg/dl (8.5-10.1); CREATININE 1.66 mg/dl (0.60-1.20); TOTAL PROTEIN 5.9 gm/dl (6.4-8.2)
[2018-02-01 06:26] VITALS: BP 109/43; PULSE 79; TEMP 37; O2SAT 92
[2018-02-01] MEDS: LEVOTHYROXINE 200 MCG TAB PO SCH (06:31)
[2018-02-01] MEDS: PIPERACILL/TAZOBAC IV 3.375 GM in NSS 100ML IV SCH ×2 (06:31→16:04)
--- NOTE | 2018-02-01 07:41 | Progress Note ---
Subjective Date of Service: February 01, 2018. Subjective this pt is awake and we did have a lenghty discussion with the patient and her daughters and sister, I also spoke in the phone with DR Fierro and later in the day spoke to the consulting practice director surgeon Dr Worley, overall I spent 1 hour and 15 minutes between the patient visit, family meeting and discussion with the two surgeons discussing plan of care. Still with no great direction of eventual decision on what to do about her Gall Bladder being possible source of infection Problem List Medical Problems: (1) Acute renal failure Status: Acute (2) Altered mental status Status: Acute (3) Anemia Status: Acute (4) CHF (congestive heart failure) Status: Acute (5) Dehydration Status: Acute (6) Elevated troponin Status: Acute (7) Fever Status: Acute (8) Intestinal infection, enteritis due to small round viruses (SRVS) Status: Acute (9) Leukocytosis Status: Acute (10) Pneumonia Status: Acute (11) Sepsis Status: Acute (12) Sepsis Status: Acute (13) Systemic inflammatory response syndrome Status: Acute (14) UTI (urinary tract infection) Status: Acute (15) UTI (urinary tract infection) Status: Acute (16) UTI (urinary tract infection) Status: Acute (17) Weakness Status: Acute Review of Systems Constitutional: + chills, + weakness, + fatigue, No fever Respiratory: No cough, No shortness of breath, No dyspnea on exertion Cardiac: No chest pain, No edema Abdomen: No pain, No nausea, No vomiting, No diarrhea Neurologic: No memory loss, No weakness Psychiatric: No depression symptoms, No anhedonism Objective Vital Signs Date Time Temp Pulse Resp B/P (MAP) Pulse Ox O2 Delivery O2 Flow Rate FiO2 02/01/18 06:26 37.0 79 18 109/43 (65) 92 Room Air 02/01/18 04:00 Room Air 02/01/18 03:23 37.0 92 18 140/57 (84) 96 Room Air 01/31/18 23:59 Room Air 01/31/18 23:41 36.6 76 18 106/48 (67) 96 Room Air 01/31/18 20:00 Room Air 01/31/18 19:33 36.6 74 18 106/45 (65) 95 Room Air 01/31/18 17:00 Room Air 01/31/18 16:33 78 20 110/47 (68) 95 Room Air 01/31/18 12:00 Room Air 01/31/18 12:00 37.7 83 20 109/44 (65) 94 Room Air Physical Exam General Appearance: + mild distress, + thin Eyes: normal inspection, sclerae normal, + pertinent finding (an icteric) Respiratory/Chest: chest non-tender, no respiratory distress, + decreased breath sounds Cardiovascular: regular rate, rhythm, + systolic murmur Abdomen: normal bowel sounds, soft, + guarding, + tenderness Extremities: no pedal edema, no calf tenderness Neurologic/Psychiatric: alert, oriented x 3 Laboratory Results Last 24 Hours Test 01/31/18 11:13 01/31/18 11:43 01/31/18 11:45 01/31/18 14:16 Bedside Glucose 398 mg/dl 318 mg/dl Sodium Level 133 mmol/L Potassium Level 4.4 mmol/L Chloride Level 103 mmol/L Carbon Dioxide Level 18 mmol/L Anion Gap 12.0 mmol/L Blood Urea Nitrogen 38 mg/dl Creatinine 1.72 mg/dl Est Creatinine Clear Calc Drug Dose 20.1 ml/min Estimated GFR () 31.5 Estimated GFR (Non- 27.2 BUN/Creatinine Ratio 22.3 Random Glucose 388 mg/dl Calcium Level 6.9 mg/dl Beta-Hydroxybutyric Acid 26.42 mg/dL Procalcitonin 20.60 ng/ml Test 01/31/18 16:37 01/31/18 21:00 02/01/18 04:52 Bedside Glucose 216 mg/dl 116 mg/dl White Blood Count 9.15 K/uL Red Blood Count 3.29 M/uL Hemoglobin 8.7 g/dL Hematocrit 27.0 % Mean Corpuscular Volume 82.1 fL Mean Corpuscular Hemoglobin 26.4 pg Mean Corpuscular Hemoglobin Concent 32.2 g/dl RDW Standard Deviation 55.6 fL RDW Coefficient of Variation 18.5 % Platelet Count 246 K/uL Mean Platelet Volume 9.8 fL Sodium Level 135 mmol/L Potassium Level 4.0 mmol/L Chloride Level 108 mmol/L Carbon Dioxide Level 20 mmol/L Anion Gap 7.0 mmol/L Blood Urea Nitrogen 40 mg/dl Creatinine 1.66 mg/dl Est Creatinine Clear Calc Drug Dose 20.8 ml/min Estimated GFR () 32.9 Estimated GFR (Non- 28.4 BUN/Creatinine Ratio 24.2 Random Glucose 96 mg/dl Calcium Level 6.8 mg/dl Total Bilirubin 0.4 mg/dl Direct Bilirubin 0.2 mg/dl Aspartate Amino Transf (AST/SGOT) 49 U/L Alanine Aminotransferase (ALT/SGPT) 34 U/L Alkaline Phosphatase 389 U/L Total Protein 5.9 gm/dl Albumin 1.9 gm/dl Assessment and Plan 82 y/o female with a history of HTN, chronic diastolic CHF, DM II, renal cell carcinoma w/mets to lung/bone/pancreas, CKD stage III s/p left nephrectomy, hypothyroidism, and h/o DVT s/p IVC filter who presented to the ED on 01/30 with fever and lethargy. [place] to have acute cholecystitis. Acute calculous cholecystitis. abnormal HIDA scan with no filling of gall bladder after 90 minutes, her biliary stent was patent however Zosyn IV, Vancomycin IV, consult general surgery, patient prefers Dr. Fierro but understands call schedule on weekend Dr Fierro feels that surgery would likely not be recommended and percutaneous drain would be safest way treat infection if gall bladder is distended on US it is not and now direction of care for the cyclic infections to eventually supress them Elevated troponin--denies chest pain, no EKG changes troponin peaked at 0.12, demand ischemia, no further work up patient had full work up recently at [place] with echocardiogram DM with hyperglycemia, mild DKA Levemir 10 units BID, they do not use Novolog at home, here will use Novolog SS Acute kidney injury on CKD stage III/IV h/o nephrectomy did receive Lasix on admission for suspected CHF, caution with unilateral kidney after nephrectomy for RCCA Suspected acute on chronic diastolic heart failure, no additional lasix, monitor volume status HTN--stable, borderline low. Pt no longer on antihypertensives Renal cell carcinoma w/mets to lungs, bone, pancreas--noted, symptom control -Pt on Opdivo, Xgeva Recurrent C. diff-Continue chronic vanc 125 mg PO qd Hypothyroidism Synthroid 200 mcg PO qd DVT prophylaxis -H/o bad reactions to anticoagulants in the past -EUSEBIA wiley and SCDs Code Status -Level V, DO NOT RESUSCITATE
[2018-02-01] MEDS ORDERED: FENTANYL PATCH REMOVE & WASTE SCH (08:59)
[2018-02-01] MEDS ORDERED: FUROSEMIDE 20 MG TAB PO SCH (09:00)
[2018-02-01] MEDS: FENTANYL 50 MCG/HR TDSY TD SCH (09:47)
[2018-02-01] MEDS: CHECK FENTANYL PATCH PLACEMENT SCH ×2 (09:47→16:03)
[2018-02-01] MEDS: VANCOMYCIN HCL 125 MG/2.5ML SOLN PO SCH (09:48)
[2018-02-01] MEDS: FERROUS SULFATE 325 MG TAB PO SCH (09:48)
[2018-02-01] MEDS: RASPBERRY SYRUP 5 ML UDP PO SCH (09:48)
[2018-02-01] MEDS: FENTANYL PATCH REMOVE & WASTE SCH (09:49)
--- NOTE | 2018-02-01 09:57 | Pre-Operative Consultation ---
History General Date of Service: February 01, 2018. Stated Complaint: acute cholecystitis HPI HPI: The patient is a 82 year old female being seen for pre-operative evaluation at the request of Dr. Bañuelos. History is mainly obtained from her daughter, Naz, who used to be an OR nurse. In 1997, she underwent a left nephrectomy for renal cell cancer. 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 Was well managed on oral chemotherapy, ultimately had a bone biopsy by Dr. Fierro which diagnosed the metastasis, had radiation to her bone and lung lesion. In 2014, had an episode of ?cholangitis treated with ercp and permanent stent placement. Known to have gallstones for the last 20 yrs , in 2014 - no sign of acute cholecystitis so decision was made to leave her gallbladder in place. For the past three years, she has been maintained on a different oral chemo due to "slight growth" of lesions. Since then, has had frequent admissions for UTIs , had C.dif colitis managed with oral vancomycin, DVT/ PE with inability to tolerate coumadin so had IVC filter placed. This time, developed low grade fever Saturday, Sat was normal, fever was slightly higher and by Saturday, was spiking over 101 with chills noted. Earlier in the week, had some pain in the "right ribs" which responded to norco. No nausea or vomiting. Bowels have been formed and normal. Brought to the ER and admitted and started on IV abx. HIDA scan done and showed acute cholecystitis. She has been tolerating a regular diet with no problems except low appetite (chronic issue). She has had all of her procedures done by Dr. Fierro and strongly prefers him for any surgical intervention. They are leaning towards surgery given the chronicity of her symptoms and their interference in her day to day life. Historian: patient, family Anticipated Procedure: lap cholecystectomy Procedure Urgency: Acute Risk Assessment Pre-Op Conditions: + compensated CHF (recent admit to [facility] for CHF, tejinder , last echo showed EF 55%), + renal insufficiency (s/p nephrectomy), + liver disease (does have mets to liver), + valvular heart disease (aortic and mitral regurgitation on last echo), + diabetes (better with her weight loss associated with the first oral chemo) Daily beta alma delia use?: No Problem List Medical Problems: (1) Acute renal failure Status: Acute (2) Altered mental status Status: Acute (3) Anemia Status: Acute (4) CHF (congestive heart failure) Status: Acute (5) Dehydration Status: Acute (6) Elevated troponin Status: Acute (7) Fever Status: Acute (8) Intestinal infection, enteritis due to small round viruses (SRVS) Status: Acute (9) Leukocytosis Status: Acute (10) Pneumonia Status: Acute (11) Sepsis Status: Acute (12) Sepsis Status: Acute (13) Systemic inflammatory response syndrome Status: Acute (14) UTI (urinary tract infection) Status: Acute (15) UTI (urinary tract infection) Status: Acute (16) UTI (urinary tract infection) Status: Acute (17) Weakness Status: Acute Medical & Surgical History Past Medical History: cancer (metastatic renal cell ca), deep vein thrombosis, diabetes, hypertension Past Surgical History: (x4), nephrectomy, other Family History Family History: no pertinent family hx Social History Hx Tobacco Use In Past Year?: No Smoking Status: Never Smoker Alcohol: none Drug Use: none Marital status: Housing status: lives with family (with 2 daughters) Occupation status: retired Immunizations Have You Had Influenza Vaccine: Yes Have You Had Tetanus Vaccine: Unknown History of Pneumococcal: Yes History Hepatitis B Vaccine: No Allergies Allergies: Coded Allergies: Adhesives (Verified Allergy, Mild, LOCAL SKIN IRRITATION, BLISTERS, 01/30/18 ) Uncoded Allergies: ANTICOAGULANTS (Adverse Reaction, Intermediate, INCREASED INR -PER FAMILY, 05/20/17) Medications Current Inpatient Medications Current Inpatient Medications Medications (Trade) Dose Ordered Sig/Suleiman Route Start Time Stop Time Status Last Admin Dose Admin Acetaminophen (Tylenol Tab) 650 mg Q4H PRN PO 01/30/18 15:45 03/01/18 15:44 01/31/18 08:43 650 MG Al Hydrox/Mg Hydrox/Simethicone (Maalox Max Susp) 15 ml Q4H PRN PO 01/30/18 15:45 03/01/18 15:44 Magnesium Hydroxide (Milk Of Magnesia Susp) 30 ml Q12H PRN PO 01/30/18 15:45 03/01/18 15:44 Ondansetron HCl (Zofran Inj) 4 mg Q6H PRN IV 01/30/18 15:45 03/01/18 15:44 5/5/18 03:19 4 MG Polyethylene (Miralax Powder Packet) 17 gm DAILY PRN PO 01/30/18 15:45 03/01/18 15:44 Glucose (Glucose 40% Gel) 15-30 GRAMS 15 GRAMS... UD PRN PO 01/30/18 15:45 03/01/18 15:44 Glucose (Glucose Chew Tab) 4-8 Tablets 4 Tabl... UD PRN PO 01/30/18 15:45 03/01/18 15:44 Dextrose (Dextrose 50% 50ML Syringe) 25-50ML 25ML FOR ... UD PRN IV 01/30/18 15:45 03/01/18 15:44 Glucagon (Glucagon Inj) 1 mg UD PRN SQ 01/30/18 15:45 03/01/18 15:44 Carbohydrates (Carbohydrates For Hypoglycemia) 15-30 GRAMS 15 grams if BSG 54-69... UD PRN PO 01/30/18 15:45 03/01/18 15:44 Acetaminophen 100 ml @ 400 mls/hr Q8H PRN IV 01/30/18 15:45 03/01/18 15:44 Fentanyl (Duragesic Patch) 50 mcg Q72H TD 02/01/18 08:00 02/15/18 07:59 Acetaminophen/ Hydrocodone Bitart ([employer] 7.5/325 Tab) 1 tab Q4H PRN PO 01/30/18 15:45 02/13/18 15:44 Insulin Detemir (Levemir Flexpen/ FlexTouch) 10 units QPM SC 01/30/18 21:00 03/01/18 20:59 01/31/18 21:49 10 UNITS Levothyroxine Sodium (Synthroid Tab) 200 mcg DAILYBB PO 01/31/18 06:00 03/02/18 06:59 02/01/18 06:31 200 MCG Senna (Senokot Tab) 8.6 mg QAM PRN PO 01/30/18 15:45 03/01/18 15:44 Vancomycin HCl (Vancomycin Oral Soln) 125 mg QAM PO 01/31/18 09:00 03/02/18 08:59 01/31/18 08:47 125 MG Ferrous Sulfate (Feosol Tab) 325 mg Q2D@0900 PO 02/01/18 09:00 03/03/18 08:59 Insulin Aspart (novoLOG ASPART) SLIDING SCALE G... ACHS SC 01/30/18 16:00 03/01/18 15:59 01/31/18 21:46 1 UNITS Miscellaneous Information (Consult) 1 ea UD PRN N/A 01/30/18 16:30 03/01/18 16:29 Miscellaneous (Iv Fluids Completed) 1 ea PRN PRN N/A 01/30/18 16:45 01/30/19 16:44 Miscellaneous Information (Check Fentanyl Patch Placement) 1 ea QS N/A 01/31/18 00:00 03/02/18 00:00 01/31/18 23:07 1 EA Miscellaneous (Fentanyl Patch Remove & Waste) 1 ea Q72H N/A 02/01/18 07:59 03/03/18 07:58 Raspberry (Raspberry Syrup 5ml Cup) 5 ml DAILY PO 01/31/18 09:00 02/14/18 08:59 01/31/18 08:47 5 ML Piperacillin Sod/ Tazobactam Sod 3.375 gm/Sodium Chloride 115 ml @ 28.75 mls/ hr Q8H IV 01/30/18 23:00 02/01/18 22:59 02/01/18 06:31 28.75 MLS/HR Sodium Chloride 1,000 ml @ 100 mls/hr Q10H IV 01/31/18 08:00 03/02/18 07:59 02/01/18 04:53 100 MLS/HR Insulin Detemir (Levemir Flexpen/ FlexTouch) 10 units QAM SQ 02/01/18 09:00 03/02/18 08:59 Review of Systems Review of Systems Constitutional: chills, fever Eyes: reports: no symptoms ENT: reports: no symptoms reported Cardiovascular: reports: no symptoms reported Respiratory: reports: other (hurt to take a deep breath (hurt in ruq when having the pain)) Gastrointestinal: see HPI Genitourinary - Female: reports: other (frequent uti) Integumentary: no symptoms reported Psychiatric: reports: no symptoms Physical Exam Physical Exam General Appearance: + other (frail elderly woman), No distress Ears, Nose, Throat: + normal ENT inspection Neck: No abnormal inspection, No tracheal deviation Respiratory: No chest tenderness, No accessory muscle use, No decreased breath sounds Cardiovascular: + diastolic murmur (over aortic and mitral areas), No JVD, No abnormal rate Abdomen: No abnormal bowel sounds, No rebound, No hepatomegaly, No tenderness, No distension, No hernia, No guarding Extremities: No edema Neurologic/Psychiatric: 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, No decreased LOC Skin Characteristics: No cyanosis, No mottling Diagnostics Labs Labs Results Past 24 Hours Test 01/31/18 11:13 01/31/18 11:43 01/31/18 11:45 01/31/18 14:16 Range/Units Bedside Glucose 398 318 70-90 mg/dl Sodium Level 133 136-145 mmol/L Potassium Level 4.4 3.5-5.1 mmol/L Chloride Level 103 98-107 mmol/L Carbon Dioxide Level 18 21-32 mmol/L Anion Gap 12.0 3-11 mmol/L Blood Urea Nitrogen 38 7-18 mg/dl Creatinine 1.72 0.60-1.20 mg/dl Est Creatinine Clear Calc Drug Dose 20.1 ml/min Estimated GFR () 31.5 Estimated GFR (Non- 27.2 BUN/Creatinine Ratio 22.3 10-20 Random Glucose 388 70-99 mg/dl Calcium Level 6.9 8.5-10.1 mg/dl Beta-Hydroxybutyric Acid 26.42 0.2-2.81 mg/dL Procalcitonin 20.60 0-0.5 ng/ml Test 01/31/18 16:37 01/31/18 21:00 02/01/18 04:52 02/01/18 07:17 Range/Units Bedside Glucose 216 116 90 70-90 mg/dl White Blood Count 9.15 4.8-10.8 K/uL Red Blood Count 3.29 4.2-5.4 M/uL Hemoglobin 8.7 12.0-16.0 g/dL Hematocrit 27.0 37-47 % Mean Corpuscular Volume 82.1 80-100 fL Mean Corpuscular Hemoglobin 26.4 25-34 pg Mean Corpuscular Hemoglobin Concent 32.2 32-36 g/dl RDW Standard Deviation 55.6 36.4-46.3 fL RDW Coefficient of Variation 18.5 11.5-14.5 % Platelet Count 246 130-400 K/uL Mean Platelet Volume 9.8 7.4-10.4 fL Sodium Level 135 136-145 mmol/L Potassium Level 4.0 3.5-5.1 mmol/L Chloride Level 108 98-107 mmol/L Carbon Dioxide Level 20 21-32 mmol/L Anion Gap 7.0 3-11 mmol/L Blood Urea Nitrogen 40 7-18 mg/dl Creatinine 1.66 0.60-1.20 mg/dl Est Creatinine Clear Calc Drug Dose 20.8 ml/min Estimated GFR () 32.9 Estimated GFR (Non- 28.4 BUN/Creatinine Ratio 24.2 10-20 Random Glucose 96 70-99 mg/dl Calcium Level 6.8 8.5-10.1 mg/dl Total Bilirubin 0.4 0.2-1 mg/dl Direct Bilirubin 0.2 0-0.2 mg/dl Aspartate Amino Transf (AST/SGOT) 49 15-37 U/L Alanine Aminotransferase (ALT/SGPT) 34 12-78 U/L Alkaline Phosphatase 389 45-117 U/L Total Protein 5.9 6.4-8.2 gm/dl Albumin 1.9 3.4-5.0 gm/dl Lab Interpretation Lab Interpretation: labs were reviewed Diagnostic Radiology Diagnostic Radiology HIDA scan showed acute cholecystitis Impression Assessment and Plan Assessment and Plan 82 yr old woman with chronically managed metastatic renal cell cancer (managed over past 7 yrs), DVT s/p IVC filter, history of multiple UTI's and C. dif and recent cardiac w/u at [facility] showing AI/ MR and preserved EF of 55%. Findings now concerning for acute calculous cholecystitis. Options discussed - I would recommend medical clearance with obtaining her cardiology records. At this point, her life expectancy for the metastatic renal cell ca appears to be years (not months). Thus, I do think she is a candidate for lap cholecystectomy if appropriately cleared by medicine. Explained that she is at higher risk of heart issues, DVT, strokes, failure to thrive. Explained that her age and comorbidities can mask symptoms so it is possible she has a gangrenous gallbladder and this would confer an increased risk of bile leak and conversion to open procedure. Option of perc drain also discussed - explained there are times the drain is left in place for a long time and there is a chance of recurrence of problems with drain removal. Lastly, we reviewed the possibility of antibiotics alone (this is probably the least likely to work). All questions answered. She and her daughters are leaning toward surgery if it is an option. Asking for medical clearance/ obtaining cardiology records over the weekend and then having Dr. Fierro give his opinion and operate if he deems fit early next week. Will sign off. Please let Dr. Fierro's service know Saturday morning and have pt npo after midnight Saturday in case he feels he would operate on her. Thank you.
[2018-02-01] MEDS: INSULIN ASPART 100 UNITS/ML 3 ML PEN SC SCH ×4 (09:59→20:44)
[2018-02-01] MEDS: INSULIN DETEMIR FLEXPEN/FLEX TOUCH 100 UNITS/ML 3ML SQ SCH (09:59)
[2018-02-01 12:10] VITALS: BP 118/50; PULSE 77; TEMP 36.4; O2SAT 96
[2018-02-01 16:33] VITALS: BP 114/50; PULSE 79; TEMP 37.1; O2SAT 95
--- NOTE | 2018-02-01 18:04 | DIAGNOSTIC IMAGING REPORT ---
GALLBLADDER-ABD LIMITED CLINICAL HISTORY: 82 years-old Female presenting with gallstones. TECHNIQUE: Real-time grayscale and limited color Doppler ultrasound imaging of the abdomen limited to the right upper quadrant was performed. COMPARISON: Ultrasound from 12/24/2017, CT from 12/25/2017, and HIDA scan from 01/31/2018.. FINDINGS: Pancreas: Visualized portions of the pancreatic head and body normal. Liver: Hyperechogenic parenchyma with heterogeneous echotexture secondary to known underlying metastatic disease. Pneumobilia evident. The liver is enlarged. The liver measures 20.6 cm in maximal sagittal dimension. No sonographic evidence of hepatic mass. Main portal vein patent with normal directional flow. Biliary: No intrahepatic biliary ductal dilatation. Common bile duct is not well visualized. A common bile duct stent is noted. Gallbladder: Not well visualized. The gallbladder is not significantly distended. Shadowing in the gallbladder fossa may indicate a gallbladder lumen filled with gallstones. Right kidney: Normal in appearance without evidence of hydronephrosis. Ascites: Trace free fluid inferior to the liver.. Other: Right pleural effusion evident. IMPRESSION: 1. For visualization of the gallbladder. The gallbladder is not significantly distended though likely full of gallstones. Please see previously reported HIDA scan from yesterday, which was a better functional evaluation of the gallbladder. 2. Common bile duct stent in place. 3. Hepatomegaly with known hepatic metastatic disease. Electronically signed by: Boni Szymanski M.D. 02/01/2018 6:02 PM Dictated Date/Time: 02/01/2018 5:55 PM
[2018-02-01 20:00] VITALS: BP 123/52; PULSE 81; TEMP 36.8; O2SAT 96
[2018-02-01] MEDS: INSULIN DETEMIR FLEXPEN/FLEX TOUCH 100 UNITS/ML 3ML SC SCH (20:44)
[2018-02-01 23:51] VITALS: BP 127/53; PULSE 86; TEMP 36.6; O2SAT 93
[2018-02-02 04:54] VITALS: BP 115/52; PULSE 83; TEMP 36.5; O2SAT 94
[2018-02-02] MEDS: LEVOTHYROXINE 200 MCG TAB PO SCH (05:45)
[2018-02-02 05:56] LABS: HEMATOCRIT 28.6 % (37-47); HEMOGLOBIN 8.9 g/dL (12.0-16.0); MEAN CELL VOLUME 82.9 fL (80-100); MEAN CORPUSCULAR HEMOGLOBIN 25.8 pg (25-34); MEAN CORPUSCULAR HGB CONC 31.1 g/dl (32-36); MEAN PLATELET VOLUME 9.6 fL (7.4-10.4); PLATELET COUNT 248 K/uL (130-400); RED CELL DISTRIBUTION WIDTH CV 18.5 % (11.5-14.5); RED CELL DISTRIBUTION WIDTH SD 56.8 fL (36.4-46.3); WHITE BLOOD COUNT 6.29 K/uL (4.8-10.8)
[2018-02-02 06:23] LABS: ALBUMIN 1.9 gm/dl (3.4-5.0); CALCIUM 6.9 mg/dl (8.5-10.1); CREATININE 1.47 mg/dl (0.60-1.20)
[2018-02-02 06:54] VITALS: BP 122/53; PULSE 84; TEMP 36.6; O2SAT 92
[2018-02-02] MEDS: INSULIN ASPART 100 UNITS/ML 3 ML PEN SC SCH ×4 (07:44→20:25)
[2018-02-02] MEDS: INSULIN DETEMIR FLEXPEN/FLEX TOUCH 100 UNITS/ML 3ML SQ SCH (07:45)
[2018-02-02] MEDS: RASPBERRY SYRUP 5 ML UDP PO SCH (08:06)
[2018-02-02] MEDS: VANCOMYCIN HCL 125 MG/2.5ML SOLN PO SCH (08:06)
[2018-02-02] MEDS: CHECK FENTANYL PATCH PLACEMENT SCH ×4 (08:07→22:29)
[2018-02-02] MEDS: AMOXICILLIN/CLAVULANATE TAB 875 MG TAB PO SCH ×2 (10:00→16:56)
[2018-02-02] MEDS: SODIUM CHLORIDE 0.9% 1000ML 1,000 ML IV SCH ×2 (10:00→20:04)
[2018-02-02 11:20] VITALS: BP 145/62; PULSE 85; TEMP 37.1; O2SAT 97
[2018-02-02] MEDS: ONDANSETRON INJ 2 MG/ML 2 ML VIAL IV PRN (12:28)
--- NOTE | 2018-02-02 15:26 | Progress Note ---
Subjective Date of Service: February 02, 2018. Subjective this pt appears depressed, she is still not sure about what direct course of action she wants to take regarding invasive procedures. Her family is at the bedside and is now wanting to discuss rotating antibiotics with ID and not pursue surgery or percutaneous drainage as recent Gall bladder us did not show concerns for markedly swollen GB Problem List Medical Problems: (1) Acute renal failure Status: Acute (2) Altered mental status Status: Acute (3) Anemia Status: Acute (4) CHF (congestive heart failure) Status: Acute (5) Dehydration Status: Acute (6) Elevated troponin Status: Acute (7) Fever Status: Acute (8) Intestinal infection, enteritis due to small round viruses (SRVS) Status: Acute (9) Leukocytosis Status: Acute (10) Pneumonia Status: Acute (11) Sepsis Status: Acute (12) Sepsis Status: Acute (13) Systemic inflammatory response syndrome Status: Acute (14) UTI (urinary tract infection) Status: Acute (15) UTI (urinary tract infection) Status: Acute (16) UTI (urinary tract infection) Status: Acute (17) Weakness Status: Acute Review of Systems Constitutional: + weakness, + fatigue, No fever, No chills Respiratory: No cough, No shortness of breath, No dyspnea on exertion Cardiac: + edema, No chest pain Abdomen: No pain, No nausea, No vomiting, No diarrhea Musculoskeletal: No joint pain, No muscle pain Neurologic: No memory loss, No paralysis Psychiatric: + depression symptoms, + anhedonism Objective Vital Signs Date Time Temp Pulse Resp B/P (MAP) Pulse Ox O2 Delivery O2 Flow Rate FiO2 02/02/18 12:00 Room Air 02/02/18 11:20 37.1 85 20 145/62 (89) 97 Room Air 02/02/18 08:20 Room Air 02/02/18 06:54 36.6 84 18 122/53 (76) 92 Room Air 02/02/18 04:54 36.5 83 18 115/52 (73) 94 Room Air 02/02/18 04:00 Room Air 02/01/18 23:59 Room Air 02/01/18 23:51 36.6 86 20 127/53 (77) 93 Room Air 02/01/18 20:00 36.8 81 16 123/52 (75) 96 Room Air 02/01/18 20:00 Room Air 02/01/18 16:33 37.1 79 16 114/50 (71) 95 Room Air 02/01/18 16:05 Room Air Physical Exam General Appearance: WD/WN, + mild distress Eyes: normal inspection, sclerae normal Neck: supple, no JVD Respiratory/Chest: chest non-tender, no accessory muscle use Cardiovascular: regular rate, rhythm, no murmur Abdomen: normal bowel sounds, non tender, soft Extremities: no pedal edema, no calf tenderness Neurologic/Psychiatric: no motor/sensory deficits, oriented x 3 Laboratory Results Last 24 Hours Test 02/01/18 16:17 02/01/18 20:28 02/02/18 00:00 02/02/18 05:16 Bedside Glucose 81 mg/dl 136 mg/dl 136 mg/dl White Blood Count 6.29 K/uL Red Blood Count 3.45 M/uL Hemoglobin 8.9 g/dL Hematocrit 28.6 % Mean Corpuscular Volume 82.9 fL Mean Corpuscular Hemoglobin 25.8 pg Mean Corpuscular Hemoglobin Concent 31.1 g/dl RDW Standard Deviation 56.8 fL RDW Coefficient of Variation 18.5 % Platelet Count 248 K/uL Mean Platelet Volume 9.6 fL Sodium Level 140 mmol/L Potassium Level 4.0 mmol/L Chloride Level 112 mmol/L Carbon Dioxide Level 21 mmol/L Anion Gap 7.0 mmol/L Blood Urea Nitrogen 30 mg/dl Creatinine 1.47 mg/dl Est Creatinine Clear Calc Drug Dose 23.6 ml/min Estimated GFR () 38.1 Estimated GFR (Non- 32.9 BUN/Creatinine Ratio 20.1 Random Glucose 56 mg/dl Calcium Level 6.9 mg/dl Total Bilirubin 0.3 mg/dl Direct Bilirubin 0.1 mg/dl Aspartate Amino Transf (AST/SGOT) 51 U/L Alanine Aminotransferase (ALT/SGPT) 32 U/L Alkaline Phosphatase 384 U/L Total Protein 6.0 gm/dl Albumin 1.9 gm/dl Test 02/02/18 07:09 02/02/18 08:01 02/02/18 11:25 Bedside Glucose 51 mg/dl 76 mg/dl 204 mg/dl Assessment and Plan 82 y/o female with a history of HTN, chronic diastolic CHF, DM II, renal cell carcinoma w/mets to lung/bone/pancreas, CKD stage III s/p left nephrectomy, hypothyroidism, and h/o DVT s/p IVC filter who presented to the ED on 01/30 with fever and lethargy. [place] to have acute cholecystitis. Acute calculous cholecystitis. abnormal HIDA scan with no filling of gall bladder after 90 minutes, her biliary stent was patent however initially treated with Zosyn IV, Vancomycin IV, consult general surgery, patient prefers Dr. Fierro but understands call schedule on weekend Dr Fierro feels that surgery would likely not be recommended and percutaneous drain would be safest way treat infection if gall bladder is distended on US it is not and now direction of care for the cyclic infections to eventually supress them, will start po augmentin and have ID eval for consideration of rotating antibiotics Elevated troponin--denies chest pain, no EKG changes troponin peaked at 0.12, demand ischemia, no further work up patient had full work up recently at [facility] with echocardiogram DM with hyperglycemia, mild DKA pt has poor po intake and has lower glucoses, will hold Levemir 10 units and use Novolog SS Acute kidney injury on CKD stage III/IV h/o nephrectomy did receive Lasix on admission for suspected CHF, caution with unilateral kidney after nephrectomy for RCCA Suspected acute on chronic diastolic heart failure, no additional lasix, monitor volume status HTN--stable, borderline low. Pt no longer on antihypertensives Renal cell carcinoma w/mets to lungs, bone, pancreas--noted, symptom control -Pt on Opdivo, Xgeva this will be held at this time due to infection Recurrent C. diff-Continue chronic vanc 125 mg PO qd adding questran to help diarrhea Hypothyroidism Synthroid 200 mcg PO qd DVT prophylaxis -H/o bad reactions to anticoagulants in the past -EUSEBIA wiley and SCDs Code Status -Level V, DO NOT RESUSCITATE
[2018-02-02 16:46] VITALS: BP 148/62; PULSE 87; TEMP 36.6; O2SAT 95
[2018-02-02 19:55] VITALS: BP 138/65; PULSE 90; TEMP 37; O2SAT 91
[2018-02-02] MEDS: CHOLESTYRAMINE LIGHT 4 GM PKT PO SCH (20:05)
[2018-02-03] VITALS (8 sets, daily range): BP systolic 127–156; BP diastolic 52–71; PULSE 63–91; TEMP 36.4–36.8; O2SAT 93–100; BMI 26.6
[2018-02-03] MEDS: LEVOTHYROXINE 200 MCG TAB PO SCH (05:32)
[2018-02-03] MEDS: SODIUM CHLORIDE 0.9% 1000ML 1,000 ML IV SCH (05:32)
[2018-02-03] MEDS: VANCOMYCIN HCL 125 MG/2.5ML SOLN PO SCH (08:11)
[2018-02-03] MEDS: RASPBERRY SYRUP 5 ML UDP PO SCH (08:11)
[2018-02-03] MEDS: AMOXICILLIN/CLAVULANATE TAB 875 MG TAB PO SCH ×2 (08:12→17:34)
[2018-02-03] MEDS: FERROUS SULFATE 325 MG TAB PO SCH (08:12)
[2018-02-03] MEDS: CHECK FENTANYL PATCH PLACEMENT SCH ×3 (08:13→23:03)
[2018-02-03] MEDS: INSULIN ASPART 100 UNITS/ML 3 ML PEN SC SCH ×4 (08:16→20:51)
--- NOTE | 2018-02-03 08:31 | Clinical Documentation Query ---
CLINICAL DOCUMENTATION QUERY 82-y/o female with complaints of a waxing and waning fever. Currently the problem list is not coded from by our coding department unless the diagnoses is supported by documentation in you assessment and plan. Sepsis is documented in problem list but is not addressed under assessment and plan. If Sepsis is/was a diagnosis made during this stay please place it under assessment and plan as well. If it has been ruled out, please state such. In your clinical opinion is this patient being managed for: ( x ) possible Sepsis POA ( ) Sepsis ruled out ( ) Not Agree Please clarify and document your clinical opinion in the progress notes and discharge summary. Terms such as "probable", "suspected", "likely", "questionable", "possible", or "still to be ruled out" are acceptable. IF IN AGREEMENT, YOU MUST DOCUMENT ABOVE DIAGNOSTIC STATEMENT IN DAILY PROGRESS NOTES AND DISCHARGE SUMMARY. This document is not part of the patient's record. Thank You, Eloy Abraham, RN [phone] & via [employer]licCONNECT
[2018-02-03 08:48] LABS: BASO % 0.5 %; BASO ABS # 0.04 K/uL (0-0.2); EOS % 0.8 %; EOS ABS # 0.06 K/uL (0-0.5); HEMATOCRIT 32.5 % (37-47); HEMOGLOBIN 10.4 g/dL (12.0-16.0); IG# 0.07 K/uL (0.00-0.02); LYMPH ABS # 1.35 K/uL (1.2-3.4); MEAN CELL VOLUME 84.2 fL (80-100); MEAN CORPUSCULAR HEMOGLOBIN 26.9 pg (25-34); MEAN PLATELET VOLUME 9.5 fL (7.4-10.4); MONO ABS # 0.79 K/uL (0.11-0.59); NEUT % 70.8 %; NEUT ABS # 5.61 K/uL (1.4-6.5); PLATELET COUNT 280 K/uL (130-400); RED CELL DISTRIBUTION WIDTH CV 18.8 % (11.5-14.5); RED CELL DISTRIBUTION WIDTH SD 57.8 fL (36.4-46.3); WHITE BLOOD COUNT 7.92 K/uL (4.8-10.8)
[2018-02-03 09:11] LABS: CALCIUM 7.2 mg/dl (8.5-10.1); CREATININE 1.3 mg/dl (0.60-1.20); PHOSPHORUS 2.2 mg/dl (2.5-4.9); POTASSIUM 4.7 mmol/L (3.5-5.1)
[2018-02-03] MEDS: CHOLESTYRAMINE LIGHT 4 GM PKT PO SCH ×2 (10:26→20:46)
--- NOTE | 2018-02-03 10:50 | SURGERY PROGRESS NOTE ---
DATE: 02/03/2018 SUMMARY: Dr. Worley's consult seen which was done over the weekend is appreciated. Chloé is well known to me a number of years. Her complex medical history is well known to me. In summary, she has been readmitted on multiple times what appeared to be of fever that the daughter who is very attentive at home, which at times go up to 102. On this last admission, she similarly had a few days prior to her admitting on Saturday where her temperature was 102. When she was admitted here on Saturday and since then her temperature has been in pretty much normal except one spike on the which was 37.7. Her laboratory also showed her to have a white count on admission of 11.04 with a left shift that really dropped dramatically in the last few days with few dose of antibiotics. The patient underwent a HIDA scan in the request of the medical service, which was positive in the sense that there was no filling of the gallbladder. At that time, I recommended to get an ultrasound of the gallbladder and the ultrasound showed that the gallbladder was pretty much contracted, filled with stones and there was no edema, no wall thickness. The patient had been slated to have a laparoscopic cholecystectomy today. At this time, as I see Chloé, she is in no acute distress. Her pain that she has intermittently is in the right costal area away from margin. She has diffuse metastases to the liver. Her abdomen is completely benign. Extensive review of her images with the radiologist revealed that the patient has a patent metallic stent that has been there about 2-1/2 years quite longer than one would expect given its use mostly in terminal cases. The HIDA scan was presently much nonconclusive at this time given the sense that the stent for same may have been obstructing the cystic duct or to compensate the flow in the duodenum. So in this setting, the HIDA scan is not very helpful. The ultrasound of the gallbladder showed very contracted gallbladder, no wall thickening, and no edema. At this point, I do not think that Chloé should undergo a cholecystectomy. There is no evidence of any acute cholecystitis and she certainly has other reasons why she has intermittent temperatures i for at least a year. She has debris in the stent which has been present and also she had E.Coli in the blood and tested pos for C. diff in the past. I discussed the situation with Dr. Tsang who will see the patient in the hospital and consideration was given whether or not the stent itself could be a partially blocked and colonized, but by CAT scan does show that she has significant debris in the distal aspect and whether this may be a contributing factor to her clinical picture, but in summary at this point, I do not see that the gallbladder is any definitive issue as far as causing her symptoms and I would look otherwise prior to even considering taking this out. Overall, she is a very frail elderly lady who has done extremely well, living almost 7 years with metastatic renal cell carcinoma. We will follow along with you. The case was discussed extensively with the care of her daughter who is an RN and is quite attentive, but knows her medical history very well. FIDEL
--- NOTE | 2018-02-03 11:02 | Gastrointestinal Consultation ---
Gastrointestinal Consultation Date of Consultation: February 03, 2018 Attending Physician: Dr. Qureshi Consulting Physician: Dr. 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 Also with hx of DM, DVT, HTN, hyperparathyroidism, C-diff, UTIs. She has a hx of cholangitis, having undergone ERCP w biliary stent placement in 05/2015, later underwent stent exchange to bare metal stent placement (10 mm x 6cm Geoff) on 07/[address] Tsang. Had low grade fevers since last week with increasing chills, temp to 104 prompting admission on 01/31 WBC on arrival 11. LFTs on arrival with minimal direct bili elevation to 0.4, AST to 100 (today improved to 51). HIDA on arrival with 1. The common bile duct stent appears to be patent. 2. No evidence for gallbladder activity to 90 minutes. 3. The appearance suggests acute calculus cholecystitis. US on arrival: 1. For visualization of the gallbladder. The gallbladder is not significantly distended though likely full of gallstones. Please see previously reported HIDA scan from yesterday, which was a better functional evaluation of the gallbladder. 2. Common bile duct stent in place. 3. Hepatomegaly with known hepatic metastatic disease. Most recent CT abd/pelvis in november 2017 with 5cm pancreas head mass, patent CBD stent. Past Medical/Surgical History Medical Problems: (1) Acute renal failure Status: Acute (2) Altered mental status Status: Acute (3) Anemia Status: Acute (4) CHF (congestive heart failure) Status: Acute (5) Dehydration Status: Acute (6) Elevated troponin Status: Acute (7) Fever Status: Acute (8) Intestinal infection, enteritis due to small round viruses (SRVS) Status: Acute (9) Leukocytosis Status: Acute (10) Pneumonia Status: Acute (11) Sepsis Status: Acute (12) Sepsis Status: Acute (13) Systemic inflammatory response syndrome Status: Acute (14) UTI (urinary tract infection) Status: Acute (15) UTI (urinary tract infection) Status: Acute (16) UTI (urinary tract infection) Status: Acute (17) Weakness Status: Acute Past Medical History: 1. Left Renal Cell Cancer s/p left nephrectomy in 1997, maintained on oral chemotherapy with mets to pancreas, lung, bone, liver. 2. CKD 3. Cholangitis 4. DVT 5. C-diff. 6. CHF Past Surgical History: 1. Left nephrectomy 2. ERCP as per HPI with most recent in Jul 1015 at which time a bare metal stent was placed for malignant pancreatic tumor. Family History Diabetes mellitus Heart disease Hypertension Social History Smoking Status: Never Smoker Alcohol Use: none Drug Use: none Marital Status: Housing Status: lives with family Occupation Status: retired Allergies Coded Allergies: Adhesives (Verified Allergy, Mild, LOCAL SKIN IRRITATION, BLISTERS, 01/30/18 ) Uncoded Allergies: ANTICOAGULANTS (Adverse Reaction, Intermediate, INCREASED INR -PER FAMILY, 05/20/17) Current Medications Home Meds and Scripts Medications Dose Route/Sig Max Daily Dose Days Date Category Dose Instructions Levemir Flextouch (Insulin Detemir) 100 Unit/Ml Inj 10 Units SC QPM 01/30/18 Reported [place] 7.5MG/325MG (Acetaminophen/Hydrocodone Bitart) Tab 1 Tab PO Q4H PRN 01/30/18 Reported PRN PAIN Senokot (Sennosides) 8.6 Mg Tab 1 Tab PO QAM PRN 01/30/18 Reported Duragesic (Fentanyl) 50 Mcg Tdsy 50 Mcg TD [id number] 01/30/18 Reported Vancomycin (Vancomycin Hcl) 125 Mg Cap 1 Cap PO QAM 01/30/18 Reported Lasix (Furosemide) 20 Mg Tab 20 Mg PO [id number] 01/30/18 Reported PT TAKES TUE,THUR,SAT,SUN Motrin (Ibuprofen) 400 Mg Tab 400 Mg PO UD PRN 01/30/18 Reported Kp Ferrous Sulfate (Ferrous Sulfate) 325 Mg Tab 1 Tab PO Q2D 01/30/18 Reported Tylenol (Acetaminophen) 500 Mg Tab 1,000 Mg PO UD PRN 12/23/17 Reported Aranesp Albumin Free (Darbepoetin Eddie-Polysorbate 8) 10 Mcg/0.4 Ml Inj 12/23/17 Reported Cyanocobalamin 1 Pow Pow 1 Tab PO DAILY 09/17/17 Reported CHEWABLE Calcium (Calcium Carbonate) 500 Mg Chw 500 Mg PO QAM 09/17/17 Reported Miralax (Polyethylene Glycol 3350) 1 Pow Pow 17 Gm PO DAILY PRN 05/20/17 Reported Culturelle (Lactobacillus-Inulin) 1 Cap Cap 1 Cap PO QAM 03/21/17 Reported Opdivo (Nivolumab) Unknown Strength Inj 1 Dose IV [id number] 03/21/17 Reported Zofran (Ondansetron HCl) 8 Mg Tab 8 Mg PO Q8 PRN 03/21/17 Reported Levothyroxine Sodium 200 Mcg Tab 200 Mcg PO QAM 03/21/17 Reported Levemir Flextouch (Insulin Detemir) 100 Unit/Ml Inj 12 Units SQ QAM 02/07/17 Reported Xgeva (Denosumab) 120 Mg/1.7 Ml Inj 1 Dose SQ MONTHLY 03/16/16 Reported Review of Systems Constitutional: + weakness, No fever, No chills, No sweats, No weight loss Eyes: No eye pain, No redness ENT: No sore throat, No trouble swallowing, No pain on swallowing Respiratory: No cough, No wheezing, No shortness of breath, No dyspnea on exertion Cardiac: No chest pain, No edema, No palpitations Abdomen: + see HPI, No pain, No nausea, No vomiting, No diarrhea, No constipation Neuro: No memory loss, No weakness, No numbness/tingling, No vertigo, No balance problems Psych: No depression symptoms, No anxiety, No insomnia Heme: No abnormal bleeding/bruising, No night sweats Endo: No excessive thirst, No excessive urination Skin: No rash, No itch, No new/changing skin lesions, No jaundice Physical Exam Date Time Temp Pulse Resp B/P (MAP) Pulse Ox O2 Delivery O2 Flow Rate FiO2 02/03/18 07:01 36.5 90 19 141/65 (90) 95 Room Air 02/03/18 04:00 Room Air 02/03/18 03:34 36.6 91 20 156/71 (99) 93 Room Air 02/03/18 00:19 36.7 87 20 127/57 (80) 94 Room Air 02/02/18 23:59 Room Air 02/02/18 20:00 Room Air 02/02/18 19:55 37.0 90 16 138/65 (89) 91 Room Air 02/02/18 16:46 36.6 87 16 148/62 (90) 95 Room Air 02/02/18 16:30 Room Air 02/02/18 12:00 Room Air 02/02/18 11:20 37.1 85 20 145/62 (89) 97 Room Air General Appearance: no apparent distress Eyes: normal inspection, EOMI Neck: supple, no adenopathy, thyroid normal Respiratory/Chest: chest non-tender, lungs clear, normal breath sounds, no accessory muscle use Cardiovascular: regular rate, rhythm, no JVD, no murmur Abdomen: normal bowel sounds, non tender, soft, no organomegaly Extremities: normal inspection, normal capillary refill, + pedal edema (trace, bilat) Neurologic/Psych: alert, normal mood/affect, oriented x 3 Skin: normal color, no jaundice, warm/dry, no rash Laboratory Results Last 24 Hours Test 02/02/18 11:25 02/02/18 16:30 02/02/18 20:13 02/03/18 06:54 Bedside Glucose 204 mg/dl 208 mg/dl 275 mg/dl 358 mg/dl Test 02/03/18 07:59 White Blood Count 7.92 K/uL Red Blood Count 3.86 M/uL Hemoglobin 10.4 g/dL Hematocrit 32.5 % Mean Corpuscular Volume 84.2 fL Mean Corpuscular Hemoglobin 26.9 pg Mean Corpuscular Hemoglobin Concent 32.0 g/dl Platelet Count 280 K/uL Mean Platelet Volume 9.5 fL Neutrophils (%) (Auto) 70.8 % Lymphocytes (%) (Auto) 17.0 % Monocytes (%) (Auto) 10.0 % Eosinophils (%) (Auto) 0.8 % Basophils (%) (Auto) 0.5 % Neutrophils # (Auto) 5.61 K/uL Lymphocytes # (Auto) 1.35 K/uL Monocytes # (Auto) 0.79 K/uL Eosinophils # (Auto) 0.06 K/uL Basophils # (Auto) 0.04 K/uL RDW Standard Deviation 57.8 fL RDW Coefficient of Variation 18.8 % Immature Granulocyte % (Auto) 0.9 % Immature Granulocyte # (Auto) 0.07 K/uL Sodium Level 136 mmol/L Potassium Level 4.7 mmol/L Chloride Level 108 mmol/L Carbon Dioxide Level 16 mmol/L Anion Gap 12.0 mmol/L Blood Urea Nitrogen 25 mg/dl Creatinine 1.30 mg/dl Est Creatinine Clear Calc Drug Dose 27.4 ml/min Estimated GFR () 44.2 Estimated GFR (Non- 38.2 BUN/Creatinine Ratio 19.0 Random Glucose 387 mg/dl Calcium Level 7.2 mg/dl Phosphorus Level 2.2 mg/dl Magnesium Level 1.9 mg/dl Beta-Hydroxybutyric Acid 31.75 mg/dL Impression Patient is a 82 year old female admitted with weakness, leukocytosis. Regarding the cause of the fever, urine, blood cultures (-) and CXR w/o acute abnormalities. Though no clear evidence of occluded CBD stent, there is question of some minimal debris in this stent, which, if present could cause cholangitis. Plan Discussed with Dr. Tsang who is considering ERCP for sweeping of the bile duct. I have seen and examined the patient with SY Byers whose note reflects our findings and plan. Patient with metastatic cancer including pancreatic with metal stenting on the CBD in 2014. She has been on IV chemo. She has had intermittent fevers over the past 1 year. At times associated with urinary source and bacteremia. Has also had C diff x 3 and is now on daily oral vancomycin. Has had many hospitalizations over the last year and IV abx. Most recently, last week she developed fever which escalated despite alternating tylenol and ibuprofen. Imaging reviewed. There is a questions of debris in the stent on CT from November. Bile is getting through and LFTs remain normal. will review and discuss further with . Ashley Herndon DO
--- NOTE | 2018-02-03 11:02 | Progress Note ---
Subjective Date of Service: February 03, 2018. Subjective Pt evaluation today including: conversation w/ patient, conversation w/ family , physical exam, chart review, lab review abx changed to augmentin over weekend, s/p HIDA and ultrasound, no plans for OR or stent removal. awaiting GI eval regarding additional ERCP. tolerating abx, cultures negative. eating clears, no abd pain. stool loose, initial c diff negative, family requesting probiotics. no f/c. no pain, no sob, cough, cp. all remaining ros reviewed and are negative. Problem List Medical Problems: (1) Acute renal failure Status: Acute (2) Altered mental status Status: Acute (3) Anemia Status: Acute (4) CHF (congestive heart failure) Status: Acute (5) Dehydration Status: Acute (6) Elevated troponin Status: Acute (7) Fever Status: Acute (8) Intestinal infection, enteritis due to small round viruses (SRVS) Status: Acute (9) Leukocytosis Status: Acute (10) Pneumonia Status: Acute (11) Sepsis Status: Acute (12) Sepsis Status: Acute (13) Systemic inflammatory response syndrome Status: Acute (14) UTI (urinary tract infection) Status: Acute (15) UTI (urinary tract infection) Status: Acute (16) UTI (urinary tract infection) Status: Acute (17) Weakness Status: Acute Objective Vital Signs Date Time Temp Pulse Resp B/P (MAP) Pulse Ox O2 Delivery O2 Flow Rate FiO2 02/03/18 07:01 36.5 90 19 141/65 (90) 95 Room Air 02/03/18 04:00 Room Air 02/03/18 03:34 36.6 91 20 156/71 (99) 93 Room Air 02/03/18 00:19 36.7 87 20 127/57 (80) 94 Room Air 02/02/18 23:59 Room Air 02/02/18 20:00 Room Air 02/02/18 19:55 37.0 90 16 138/65 (89) 91 Room Air 02/02/18 16:46 36.6 87 16 148/62 (90) 95 Room Air 02/02/18 16:30 Room Air 02/02/18 12:00 Room Air 02/02/18 11:20 37.1 85 20 145/62 (89) 97 Room Air Physical Exam General Appearance: WD/WN, no apparent distress Eyes: normal inspection, EOMI Neck: supple Respiratory/Chest: normal breath sounds, no respiratory distress Cardiovascular: regular rate, rhythm, no edema Abdomen: soft Extremities: non-tender, no pedal edema Neurologic/Psychiatric: alert, oriented x 3 Skin: normal color Laboratory Results Item Value Date Time Blood Culture - Preliminary Resulted 01/30/18 1311 Blood NO GROWTH TO DATE. Blood Culture - Preliminary Resulted 01/30/18 1306 Blood NO GROWTH TO DATE. Last 24 Hours Test 02/02/18 11:25 02/02/18 16:30 02/02/18 20:13 02/03/18 06:54 Bedside Glucose 204 mg/dl 208 mg/dl 275 mg/dl 358 mg/dl Test 02/03/18 07:59 White Blood Count 7.92 K/uL Red Blood Count 3.86 M/uL Hemoglobin 10.4 g/dL Hematocrit 32.5 % Mean Corpuscular Volume 84.2 fL Mean Corpuscular Hemoglobin 26.9 pg Mean Corpuscular Hemoglobin Concent 32.0 g/dl Platelet Count 280 K/uL Mean Platelet Volume 9.5 fL Neutrophils (%) (Auto) 70.8 % Lymphocytes (%) (Auto) 17.0 % Monocytes (%) (Auto) 10.0 % Eosinophils (%) (Auto) 0.8 % Basophils (%) (Auto) 0.5 % Neutrophils # (Auto) 5.61 K/uL Lymphocytes # (Auto) 1.35 K/uL Monocytes # (Auto) 0.79 K/uL Eosinophils # (Auto) 0.06 K/uL Basophils # (Auto) 0.04 K/uL RDW Standard Deviation 57.8 fL RDW Coefficient of Variation 18.8 % Immature Granulocyte % (Auto) 0.9 % Immature Granulocyte # (Auto) 0.07 K/uL Sodium Level 136 mmol/L Potassium Level 4.7 mmol/L Chloride Level 108 mmol/L Carbon Dioxide Level 16 mmol/L Anion Gap 12.0 mmol/L Blood Urea Nitrogen 25 mg/dl Creatinine 1.30 mg/dl Est Creatinine Clear Calc Drug Dose 27.4 ml/min Estimated GFR () 44.2 Estimated GFR (Non- 38.2 BUN/Creatinine Ratio 19.0 Random Glucose 387 mg/dl Calcium Level 7.2 mg/dl Phosphorus Level 2.2 mg/dl Magnesium Level 1.9 mg/dl Beta-Hydroxybutyric Acid 31.75 mg/dL Assessment and Plan (1) Cholecystitis Assessment & Plan: continue abx, follow cultures. potential ERCP
[2018-02-03] MEDS: LACTOBACILLUS ACIDOPHILUS (FLORANEX) TAB PO SCH ×2 (12:24→17:37)
[2018-02-03] MEDS ORDERED: PHARMACY GLYCEMIC MGMT CONSULT PRN (12:35)
[2018-02-03] MEDS ORDERED: INSULIN REGULAR IV STA (12:41)
[2018-02-03] MEDS ORDERED: [UNRECOGNIZED DRUG - OTHER] IV STA (12:41)
[2018-02-03] MEDS ORDERED: INSULIN DETEMIR FLEXPEN/FLEX TOUCH 100 UNITS/ML 3ML SQ ONE ×2 (12:45→21:00)
--- NOTE | 2018-02-03 14:17 | Pharmacy Progress Note ---
Glycemic Control Intl Consult Date of Service February 03, 2018. Scope Glycemic Pharmacist re-consulted by Dr Qureshi on 02/03/18 for glycemic control and to write orders per [facility] inpatient glycemic control protocol Objective Weight (Kilograms): 61.800 Accuchecks BSG (last 24hrs): Test 02/02/18 16:30 02/02/18 20:13 02/03/18 06:52 02/03/18 06:54 Bedside Glucose 208 mg/dl (70-90) 275 mg/dl (70-90) 360 mg/dl (70-90) 358 mg/dl (70-90) Test 02/03/18 07:59 02/03/18 11:06 02/03/18 11:10 Random Glucose 387 mg/dl (70-99) Bedside Glucose 408 mg/dl (70-90) 367 mg/dl (70-90) Laboratory Data (last 24hrs) Test 02/03/18 07:59 Anion Gap 12.0 mmol/L BUN/Creatinine Ratio 19.0 Blood Urea Nitrogen 25 mg/dl Creatinine 1.30 mg/dl Potassium Level 4.7 mmol/L Sodium Level 136 mmol/L White Blood Count 7.92 K/uL Red Blood Count 3.86 M/uL Hemoglobin 10.4 g/dL Hematocrit 32.5 % Mean Corpuscular Volume 84.2 fL Mean Corpuscular Hemoglobin 26.9 pg Mean Corpuscular Hemoglobin Concent 32.0 g/dl Platelet Count 280 K/uL Mean Platelet Volume 9.5 fL Neutrophils (%) (Auto) 70.8 % Lymphocytes (%) (Auto) 17.0 % Monocytes (%) (Auto) 10.0 % Eosinophils (%) (Auto) 0.8 % Basophils (%) (Auto) 0.5 % Neutrophils # (Auto) 5.61 K/uL Lymphocytes # (Auto) 1.35 K/uL Monocytes # (Auto) 0.79 K/uL Eosinophils # (Auto) 0.06 K/uL Basophils # (Auto) 0.04 K/uL HbA1c 8.8% on 12/24/17 Recent Pertinent Medications Outpatient Anti-diabetic Regimen: * Levemir 12 units SC qAM and 10 units SC qPM * A1c = 8.8% on 12/24/17 The patient is currently receiving: * Basal insulin: Levemir held - last dose 5 PM (patient received a total of 20 units Levemir on 02/01) * Correctional Insulin: Novolog Correction per scale ACHS Goal Range: Low 120 mg/dL - High 150 mg/dL Correction Factor: 25 mg/dL/unit * Prandial insulin: Per carb ratio of 1 unit per 10 grams CHO consumed Risk Factors for Insulin Resistance: * Infection: Cholecystitis * Diet: T2DM Assessment & Plan ASSESSMENT: * 82 yo F with T2DM admitted with cholecystitis. PMH renal cell carcinoma w mets, CHF, CKD III * Pharmacy re-consulted 02/03 2nd significant hypoglycemia yesterday AM to 51 mg/ dL and significant hyperglycemia today up to 358 mg/dL. * Hyperglycemia 2nd held basal insulin - will resume. 1st dose full daily dose , but at lower totoal daily dose than what caused hypoglycemia yesterday AM. OK to give more this PM if patient still with significant hyperglycemia. * Significant loosening of Novolog parameters yesterday 2nd hypoglycemia may have been too much. Will tighten slightly PLAN FOR INPATIENT GLYCEMIC CONTROL: * Resume Basal insulin with Levemir 15 units SQ x1 now. Additional 5 units tonight if BSG > 180 mg/dL * Ongoing basal insulin with Levemir SC BID based on BSG, starting tomorrow AM * 0 units for BSG less than 100 mg/dL * 5 units for BSG 100-160 mg/dL * 8 units for BSG greater than 160 mg/dL * Correctional Insulin with NOVOLOG per scale ACHS or Q6hrs while NPO * Goal Range: Low 120 mg/dL - High 150 mg/dL * Tighten Correction Factor: 20 mg/dL/unit * Tighten Nutritional / Prandial insulin per carb ratio of 1 unit per 8 grams CHO consumed * Please note that the plan above was derived based on current level of insulin resistance and hospital stress. These recommendations are appropriate for inpatient admission only. Plan of care upon discharge will need to be reassessed to avoid potential outpatient hypo/hyperglycemia. Thank you.
[2018-02-03] MEDS: ALBUT/IPRATROP 3MG/0.5MG NEB 3 ML VIAL INH SCH ×2 (15:10→19:13)
--- NOTE | 2018-02-03 15:20 | Progress Note ---
Subjective Date of Service: February 03, 2018. Subjective Pt evaluation today including: conversation w/ patient, conversation w/ family , chart review, lab review, review of studies, conversation w/ is consultant, review of inpatient medication list Pleasant, doing fair, denies spiking fever, generalized weakness, eating lunch, Problem List Medical Problems: (1) Acute renal failure Status: Acute (2) Altered mental status Status: Acute (3) Anemia Status: Acute (4) CHF (congestive heart failure) Status: Acute (5) Dehydration Status: Acute (6) Elevated troponin Status: Acute (7) Fever Status: Acute (8) Intestinal infection, enteritis due to small round viruses (SRVS) Status: Acute (9) Leukocytosis Status: Acute (10) Pneumonia Status: Acute (11) Sepsis Status: Acute (12) Sepsis Status: Acute (13) Systemic inflammatory response syndrome Status: Acute (14) UTI (urinary tract infection) Status: Acute (15) UTI (urinary tract infection) Status: Acute (16) UTI (urinary tract infection) Status: Acute (17) Weakness Status: Acute Review of Systems Constitutional: + weakness, + fatigue, No fever, No chills, No sweats, No weight loss, No problem reported Eyes: No worsening of vision, No eye pain, No redness, No discharge, No diplopia ENT: No hearing loss, No unusual epistaxis, No nasal symptoms, No sore throat, No tinnitus, No dental problems, No trouble swallowing Respiratory: + cough (Occasional), No sputum, No wheezing, No shortness of breath, No dyspnea on exertion, No dyspnea at rest, No hemoptysis Cardiac: + edema (1+), No chest pain, No orthopnea, No PND, No claudication, No palpitations Abdomen: No pain, No nausea, No vomiting, No diarrhea, No constipation Musculoskeletal: No joint pain, No muscle pain, No swelling, No calf pain Female : No dysuria, No urinary frequency, No hematuria, No incontinence, No abnormal vaginal bleeding, No vaginal discharge Neurologic: No memory loss, No paralysis, No weakness, No numbness/tingling, No vertigo, No balance problems Psychiatric: No depression symptoms, No anhedonism, No anxiety, No insomnia, No substance abuse Heme: No abnormal bleeding/bruising, No clotting problems, No swollen lymph nodes, No night sweats Endo: No fatigue, No excessive thirst, No excessive urination Skin: No rash, No itch, No new/changing skin lesions, No color change, No bleeding Objective Vital Signs Date Time Temp Pulse Resp B/P (MAP) Pulse Ox O2 Delivery O2 Flow Rate FiO2 02/03/18 11:12 36.7 86 18 139/55 (83) 95 Room Air 02/03/18 08:00 Room Air 02/03/18 07:01 36.5 90 19 141/65 (90) 95 Room Air 02/03/18 04:00 Room Air 02/03/18 03:34 36.6 91 20 156/71 (99) 93 Room Air 02/03/18 00:19 36.7 87 20 127/57 (80) 94 Room Air 02/02/18 23:59 Room Air 02/02/18 20:00 Room Air 02/02/18 19:55 37.0 90 16 138/65 (89) 91 Room Air 02/02/18 16:46 36.6 87 16 148/62 (90) 95 Room Air 02/02/18 16:30 Room Air Physical Exam General Appearance: WD/WN, no apparent distress, + thin Eyes: normal inspection, PERRL, EOMI, sclerae normal ENT: normal ENT inspection, hearing grossly normal, pharynx normal Neck: supple, no adenopathy, thyroid normal, no JVD, no carotid bruits, trachea midline Respiratory/Chest: chest non-tender, normal breath sounds, no respiratory distress, no accessory muscle use, + decreased breath sounds, + wheezing ( Occasion) Cardiovascular: regular rate, rhythm, no edema, no gallop, no JVD, no murmur, + irregularly irregular Abdomen: normal bowel sounds, non tender, soft, no organomegaly, no pulsatile mass Extremities: normal range of motion, non-tender, normal inspection, no pedal edema, no calf tenderness, normal capillary refill, pelvis stable, + swelling (1 +) Neurologic/Psychiatric: purchasing internship II-XII nml as tested, no motor/sensory deficits, alert, normal mood/affect, oriented x 3 Skin: normal color, warm/dry, no rash Lymphatic: no adenopathy Laboratory Results Last 24 Hours Test 02/02/18 16:30 02/02/18 20:13 02/03/18 06:52 5/7/18 06:54 Bedside Glucose 208 mg/dl 275 mg/dl 360 mg/dl 358 mg/dl Test 02/03/18 07:59 02/03/18 11:06 02/03/18 11:10 White Blood Count 7.92 K/uL Red Blood Count 3.86 M/uL Hemoglobin 10.4 g/dL Hematocrit 32.5 % Mean Corpuscular Volume 84.2 fL Mean Corpuscular Hemoglobin 26.9 pg Mean Corpuscular Hemoglobin Concent 32.0 g/dl Platelet Count 280 K/uL Mean Platelet Volume 9.5 fL Neutrophils (%) (Auto) 70.8 % Lymphocytes (%) (Auto) 17.0 % Monocytes (%) (Auto) 10.0 % Eosinophils (%) (Auto) 0.8 % Basophils (%) (Auto) 0.5 % Neutrophils # (Auto) 5.61 K/uL Lymphocytes # (Auto) 1.35 K/uL Monocytes # (Auto) 0.79 K/uL Eosinophils # (Auto) 0.06 K/uL Basophils # (Auto) 0.04 K/uL RDW Standard Deviation 57.8 fL RDW Coefficient of Variation 18.8 % Immature Granulocyte % (Auto) 0.9 % Immature Granulocyte # (Auto) 0.07 K/uL Sodium Level 136 mmol/L Potassium Level 4.7 mmol/L Chloride Level 108 mmol/L Carbon Dioxide Level 16 mmol/L Anion Gap 12.0 mmol/L Blood Urea Nitrogen 25 mg/dl Creatinine 1.30 mg/dl Est Creatinine Clear Calc Drug Dose 27.4 ml/min Estimated GFR () 44.2 Estimated GFR (Non- 38.2 BUN/Creatinine Ratio 19.0 Random Glucose 387 mg/dl Calcium Level 7.2 mg/dl Phosphorus Level 2.2 mg/dl Magnesium Level 1.9 mg/dl Beta-Hydroxybutyric Acid 31.75 mg/dL Bedside Glucose 408 mg/dl 367 mg/dl Assessment and Plan 82 y/o female with a history of HTN, chronic diastolic CHF, DM II, 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 Later evaluation was found to have acute cholecystitis. Acute calculous cholecystitis. abnormal HIDA scan with no filling of gall bladder after 90 minutes, biliary stent placed 2 years ago was patent initially treated with Zosyn IV, Vancomycin IV, GI is talking to surgeon for further plan such as ERCP, continue current antibiotics Elevated troponin, likely from demand ischemia, no further work up We will get echocardiogram from [facility] Dr. Iris HWANG with hyperglycemia, mild DKA, pharmacy hyperglycemia consultation, insulin drip as needed however patient's family not favored to do an insulin drip, will closely follow her labs, 1600 labs was ordered Acute kidney injury on CKD stage III/IV, h/o nephrectomy did receive Lasix on admission for suspected CHF, caution with unilateral kidney after nephrectomy for RCCA, Stable creatinine 1.3, from 1.4, will continue follow-up, patient has no signs of fluid overload for now Suspected acute on chronic diastolic heart failure, no additional lasix, monitor volume status HTN--stable, borderline low. Pt no longer on antihypertensives Renal cell carcinoma w/mets to lungs, bone, pancreas--noted, symptom control -Pt on Opdivo, Xgeva this will be held at this time due to infection Recurrent C. diff-Continue chronic vanc 125 mg PO qd adding questran to help diarrhea Hypothyroidism Synthroid 200 mcg PO qd DVT prophylaxis -H/o bad reactions to anticoagulants in the past -EUSEBIA wiley and SCDs Code Status -Level V, DO NOT RESUSCITATE Discussed with patient and daughter answered all questions Continued [facility] stay due to: multiple IV medications needed Discharge planning: uncertain
[2018-02-04] VITALS: BP 137/54; PULSE 83; TEMP 36.8; O2SAT 100
[2018-02-04 03:55] VITALS: BP 127/51; PULSE 86; TEMP 36.5; O2SAT 96
[2018-02-04] MEDS: LEVOTHYROXINE 200 MCG TAB PO SCH (06:03)
[2018-02-04 06:52] LABS: BASO % 0.8 %; BASO ABS # 0.06 K/uL (0-0.2); EOS % 1.7 %; EOS ABS # 0.13 K/uL (0-0.5); HEMATOCRIT 28.5 % (37-47); HEMOGLOBIN 9.1 g/dL (12.0-16.0); LYMPH % 16.9 %; LYMPH ABS # 1.31 K/uL (1.2-3.4); MEAN CELL VOLUME 82.4 fL (80-100); MEAN CORPUSCULAR HEMOGLOBIN 26.3 pg (25-34); MEAN CORPUSCULAR HGB CONC 31.9 g/dl (32-36); MEAN PLATELET VOLUME 9.2 fL (7.4-10.4); MONO % 10.7 %; MONO ABS # 0.83 K/uL (0.11-0.59); NEUT % 68.6 %; PLATELET COUNT 294 K/uL (130-400); RED CELL DISTRIBUTION WIDTH CV 18.8 % (11.5-14.5); RED CELL DISTRIBUTION WIDTH SD 56.2 fL (36.4-46.3); WHITE BLOOD COUNT 7.73 K/uL (4.8-10.8)
[2018-02-04 07:06] VITALS: PULSE 70; O2SAT 97
[2018-02-04] MEDS: ALBUT/IPRATROP 3MG/0.5MG NEB 3 ML VIAL INH SCH ×2 (07:06→12:00)
[2018-02-04 07:19] VITALS: BP 132/53; PULSE 87; TEMP 36.8; O2SAT 95
[2018-02-04 07:19] LABS: CREATININE 1.14 mg/dl (0.60-1.20); PHOSPHORUS 2.1 mg/dl (2.5-4.9); POTASSIUM 4.3 mmol/L (3.5-5.1)
[2018-02-04] MEDS: FENTANYL PATCH REMOVE & WASTE SCH (07:59)
[2018-02-04] MEDS: CHECK FENTANYL PATCH PLACEMENT SCH (08:00)
[2018-02-04] MEDS: INSULIN ASPART 100 UNITS/ML 3 ML PEN SC SCH ×2 (08:12→11:43)
--- NOTE | 2018-02-04 08:43 | SURGERY PROGRESS NOTE ---
DATE: 02/04/2018 Chloé is resting comfortably. She is pretty much back to baseline. She seems to be in better spirits. Her daughters are at the bedside. Discussed with the daughter last right the recommendations that were offered to her by Dr. Tsang and myself to try the antibiotic regime prior to doing any stent manipulation or proceed with stent manipulation and reposition another stent. They feel comfortable going with the antibiotic trial at this time and I would agree with that. From my point of view, the patient can be discharged once infectious disease sees the patient and makes appropriate recommendations regarding their antibiotic manipulation.
[2018-02-04] MEDS ORDERED: LACTOBACILLUS ACIDOPHILUS (FLORANEX) TAB PO SCH (09:00)
[2018-02-04] MEDS ORDERED: INSULIN DETEMIR FLEXPEN/FLEX TOUCH 100 UNITS/ML 3ML SQ SCH (09:00)
[2018-02-04] MEDS: LACTOBACILLUS ACIDOPHILUS (FLORANEX) TAB PO SCH ×2 (09:16→11:40)
[2018-02-04] MEDS: RASPBERRY SYRUP 5 ML UDP PO SCH (09:16)
[2018-02-04] MEDS: AMOXICILLIN/CLAVULANATE TAB 875 MG TAB PO SCH (09:16)
[2018-02-04] MEDS: FENTANYL 50 MCG/HR TDSY TD SCH (09:21)
[2018-02-04] MEDS: VANCOMYCIN HCL 125 MG/2.5ML SOLN PO SCH (09:27)
[2018-02-04] MEDS: CHOLESTYRAMINE LIGHT 4 GM PKT PO SCH (09:30)
--- NOTE | 2018-02-04 09:42 | Progress Note ---
Progress Note Date of Service February 04, 2018. Progress Note Pt was seen and evaluated, chart reviewed. No acute events noted overnight. Family at bedside. Dr. Tsang had evaluated the patient, agrees w/ pulse therapy ABX. No role for ERCP as LFTs are non obstructive. She denies fever, chills, abd pain. Having formed stools on daily vanco. No acute distress No scleral icterus Abd is soft, non-distended and nontender 82 year old female admitted with weakness, leukocytosis, fever. There was concern of biliary source of fever despite negative blood cultures. No evidence of CBD stent occlusion, doubt cholangitis and there is no plan for ERCP. Agree with vancomycin daily Appreciate ID recommendation for pulse ABX therapy
[2018-02-04 11:46] VITALS: BP 135/53; PULSE 90; TEMP 36.8; O2SAT 97
[2018-02-04 12:06] VITALS: Ht 152.4 cm; Wt 63.5 kg
--- NOTE | 2018-02-04 12:56 | Pharmacy Progress Note ---
Glycemic Control Progress Note Date of Service February 04, 2018. Scope Glycemic Pharmacist consulted for glycemic control to write orders per [facility] inpatient glycemic control protocol. Objective Accuchecks BSG (last 24hrs): Test 02/03/18 16:09 02/03/18 20:20 02/04/18 06:05 02/04/18 07:16 Bedside Glucose 297 mg/dl (70-90) 231 mg/dl (70-90) 161 mg/dl (70-90) Random Glucose 144 mg/dl (70-99) Test 02/04/18 11:25 Bedside Glucose 202 mg/dl (70-90) Recent Pertinent Medications Outpatient Anti-diabetic Regimen: * Levemir 12 units SC qAM and 10 units SC qPM * A1c = 8.8% on 12/24/17 The patient is currently receiving: * Basal insulin: Levemir 15 units yesterday afternoon and 5 units yesterday PM * Correctional Insulin: Novolog Correction per scale ACHS Goal Range: Low 140 mg/dL - High 180 mg/dL Correction Factor: 20 mg/dL/unit * Prandial insulin: Per carb ratio of 1 unit per 8 grams CHO consumed Risk Factors for Insulin Resistance: * Infection: Cholecystitis * Diet: T2DM Assessment & Plan ASSESSMENT: 02/03/18 * 82 yo F with T2DM admitted with cholecystitis. PMH renal cell carcinoma w mets, CHF, CKD III * Pharmacy re-consulted 02/03 2nd significant hypoglycemia yesterday AM to 51 mg/ dL and significant hyperglycemia today up to 358 mg/dL. * Hyperglycemia 2nd held basal insulin - will resume. 1st dose full daily dose , but at lower totoal daily dose than what caused hypoglycemia yesterday AM. OK to give more this PM if patient still with significant hyperglycemia. * Significant loosening of Novolog parameters yesterday 2nd hypoglycemia may have been too much. Will tighten slightly 02/04/18 * BSG's trended down nicely since changes yesterday. BSG 161 mg/dL this AM * Would have preferred to keep goal range lower, however, spoke w Jo Asnecio who noted family concerned for hypoglycemia and would likely prefer goal range to be higher. OK to maintain higher goal range now per family preference. * No additional changes needed to inpatient regimen at this time PLAN FOR INPATIENT GLYCEMIC CONTROL: * Basal insulin with Levemir SC BID based on BSG * 0 units for BSG less than 100 mg/dL * 5 units for BSG 100-160 mg/dL * 8 units for BSG greater than 160 mg/dL * Correctional Insulin with NOVOLOG per scale ACHS or Q6hrs while NPO * Goal Range: Low 140 mg/dL - High 180 mg/dL * Correction Factor: 20 mg/dL/unit * Nutritional / Prandial insulin per carb ratio of 1 unit per 8 grams CHO consumed Discharge recommendations Assessment * life educator (Jo) noted that patient's family would like to initiate sliding scale correctional insulin at home (no CHO coverage). * Would like to have started correctional insulin at lower than 200 mg/dL but family preferred to start at 200 mg/dL per Jo. * Family also requested that initial correction factor be very loose. OK with correction factor of 50 mg/dL/unit as this will make math easier for family. * Patient would likely benefit from tighter correction factor and/or lower goal range in the future Plan * Add Novolog sliding scale to current home regimen as outlined in Jo's note BG < 200 No Novolog 201 - 250 1 unit 251 - 300 2 units 301 - 350 3 units 351 - 400 4 units 401 - 450 5 units above 450 6 units and call MD * Please note that the plan above was derived based on current level of insulin resistance and hospital stress. These recommendations are appropriate for inpatient admission only. Plan of care upon discharge will need to be reassessed to avoid potential outpatient hypo/hyperglycemia. Thank you.
[2018-02-04] MEDS ORDERED: NITR1CAP16 PO (12:59)
[2018-02-04] MEDS ORDERED: AMOX1TAB43 PO (12:59)
[2018-02-04] MEDS ORDERED: QSTP PO (12:59)
[2018-02-04] MEDS ORDERED: NVLG SQ (12:59)
--- NOTE | 2018-02-04 12:59 | Discharge Instructions ---
Discharge Instructions Date of Service February 04, 2018. Admission Reason for Admission: Elevated Troponin, Fever Discharge Discharge Diagnosis / Problem: fever with possible biliary track source of infection Discharge Goals Goal(s): Decrease discomfort, Improve function, Increase independence, Improve disease control, Improve nutritional status, Learn about illness, Diagnostic testing, Therapeutic intervention, Prevent Disease Progression, Specific goals Activity Recommendations Activity Limitations: resume your previous activity . Instructions / Follow-Up Instructions / Follow-Up you was having weakness, leukocytosis, fever, possible biliary source of fever No evidence of CBD stent occlusion, less likely have cholangitis no plan for ERCP. continue vancomycin daily Infectious disease recommendation for pulse ABX therapy, Augmentin 14 day, and macrobid 14 days , then Augmentin 14 days, and then macrobid 14 days... continue Rotation . you need to continue Levemir insulin, I recommends of sliding scale post- discharge. Pharmacy suggested... less than 200 - no extra 201-250 1 unit 251-300 2 units 301-350 3 units 351-400 4 units 401-450 5 units - you need to follow up with your primary care physician in 1 week, - take medication as instructed, never overdose or any misuse, or take with alcohol, because misuse of medicine may cause organ damage or , call your primary care physician if have questions of medicaitons. - call your primary care physician OR go to local emergency room if has any fever/chill, chest pain, shortness of breathing, nausea/vomiting/abdominal pain , facial droop/slurry speech/local weakness, or if has any questions. - fall precaution - diet as instructed - you need to follow up with your subspecialists - you should understand that it is important to follow up the above instruction , and "not following the above instruction" may cause delayed or missed care of your medical conditions which may cause permanent organ damage and even . Current Hospital Diet Patient's current hospital diet: AHA Diet (Heart Healthy), Diabetes Type 2 Diet Discharge Diet Recommended Diet: Diabetes Type 2 Diet Pending Studies Studies pending at discharge: no Laboratory Results Hemoglobin A1c Test 12/24/17 05:21 Range/Units Estimated Average Glucose 206 mg/dl Hemoglobin A1c 8.8 H 4.5-5.6 % Medical Emergencies . Who to Call and When: Medical Emergencies: If at any time you feel your situation is an emergency, please call 911 immediately. . Non-Emergent Contact Non-Emergency issues call your: Primary Care Provider Call Non-Emergent contact if: you have a fever . . "Provider Documentation" section prepared by Mitesh Qureshi. .
[2018-02-04 13:12] VITALS: BP 135/53; PULSE 90; TEMP 36.8; O2SAT 97
[2018-02-04] MEDS ORDERED: NVLGI/PEN SQ (13:20)
[2018-02-04] MEDS: ONDANSETRON INJ 2 MG/ML 2 ML VIAL IV PRN (14:32)
--- NOTE | 2018-02-04 15:17 | Discharge Summary ---
Discharge Summary Date of Service February 04, 2018. Discharge Summary Admission Date: January 31, 2018 at 18:37 Discharge Date: February 04, 2018 Discharge Disposition: Home Principal Diagnosis: weakness, leukocytosis, fever, possible biliary source of infection Problems/Secondary Diagnoses: possible biliary source of fever Insulin-dependent diabetic Immunizations: Have You Had Influenza Vaccine: Yes History of Tetanus Vaccine?: Unknown History of Pneumococcal: Yes History of Hepatitis B Vaccine: No Procedures: No Consultations: Surgeon and GI infectious disease Medication Reconciliation New Medications: Insulin Aspart (Novolog Flexpen) 100 Units/Ml Inj 1 UNIT SQ ACHS, #2 Nitrofurantoin Monohyd Macro (Macrobid) 100 Mg Cap 100 MG PO BID for 30 Days, #60 CAP Amoxicillin & Pot Clavulanate (Amoxicillin/Clavulanate P) 1 Tab Tab 875 MG PO BIDM for 30 Days, TAB Cholestyramine (Cholestyramine Light) 4 Gm Pack 4 GM PO BID@10,22 MDD 1 for 7 Days only use when have diarrhea, or solf stool. high risks of bowel obstruction, use cautiousely Continued Medications: Acetaminophen (Tylenol) 500 Mg Tab 1000 MG PO UD PRN for Pain Calcium Carbonate (Calcium) 500 Mg Chw 500 MG PO QAM Cyanocobalamin (Cyanocobalamin) 1 Pow Pow 1 TAB PO DAILY CHEWABLE Darbepoetin Eddie-Polysorbate 8 (Aranesp Albumin Free) 10 Mcg/0.4 Ml Inj Denosumab (Xgeva) 120 Mg/1.7 Ml Inj 1 DOSE SQ MONTHLY Fentanyl (Duragesic) 50 Mcg Tdsy 50 MCG TD [id number] Ferrous Sulfate (Kp Ferrous Sulfate) 325 Mg Tab 1 TAB PO Q2D Furosemide (Lasix) 20 Mg Tab 20 MG PO 4XWK PT TAKES TUE,THUR,SAT,SUN Hydrocodone/Acetaminophen 7.5MG/325MG ([place] 7.5MG/325MG) Tab 1 TAB PO Q4H PRN for Pain PRN PAIN Ibuprofen Tab (Motrin) 400 Mg Tab 400 MG PO UD PRN for Pain Insulin Detemir (Levemir Flextouch) 100 Unit/Ml Inj 12 UNITS SQ QAM Insulin Detemir (Levemir Flextouch) 100 Unit/Ml Inj 10 UNITS SC QPM Lactobacillus-Inulin (Culturelle) 1 Cap Cap 1 CAP PO QAM Levothyroxine Sodium (Levothyroxine Sodium) 200 Mcg Tab 200 MCG PO QAM Nivolumab (Opdivo) Unknown Strength Inj 1 DOSE IV [id number] Ondansetron Hcl (Zofran) 8 Mg Tab 8 MG PO Q8 PRN for Nausea Polyethylene Glycol 3350 (Miralax) 1 Pow Pow 17 GM PO DAILY PRN for Constipation Sennosides (Senokot) 8.6 Mg Tab 1 TAB PO QAM PRN for Constipation Vancomycin Hcl (Vancomycin) 125 Mg Cap 1 CAP PO QAM Discharge Exam Generally feeling good, eating voiding, no fever, no abdominal pain denies nausea vomiting Review of Systems: Constitutional: No fever, No chills, No sweats, No weight loss, No weakness , No fatigue, No problem reported Eyes: No worsening of vision, No eye pain, No redness, No discharge, No diplopia, No problem reported ENT: No hearing loss, No unusual epistaxis, No nasal symptoms, No sore throat, No tinnitus, No dental problems, No trouble swallowing, No problem reported Respiratory: No cough, No sputum, No wheezing, No shortness of breath, No dyspnea on exertion, No dyspnea at rest, No hemoptysis, No problem reported Cardiovascular: No chest pain, No orthopnea, No PND, No edema, No claudication, No palpitations, No problem reported Abdomen: No pain, No nausea, No vomiting, No diarrhea, No constipation, No GI bleeding, No problem reported Musculoskeletal: No joint pain, No muscle pain, No swelling, No calf pain, No problem reported Genitourinary - Female: No dysuria, No urinary frequency, No urinary urgency , No urinary incontinence, No urinary retention, No hematuria, No dysmenorrhea, No menorrhagia, No metrorrhagia, No rash, No vaginal bleeding, No vaginal discharge, No vaginal itching, No vulvodynia, No , No problem reported Neurologic: No memory loss, No paralysis, No weakness, No numbness/tingling , No vertigo, No balance problems, No problem reported Psychiatric: No depression symptoms, No anhedonism, No anxiety, No insomnia , No substance abuse, No problem reported Endocrine: No fatigue, No excessive thirst, No excessive urination, No problem reported Integumentary: No rash, No itch, No new/changing skin lesions, No color change, No bleeding, No problem reported Physical Exam: General Appearance: WD/WN, no apparent distress, + cachetic (Frail chronically ill looking, however pleasant), + thin Eyes: normal inspection, PERRL, EOMI ENT: normal ENT inspection, hearing grossly normal, TMs normal Neck: supple, no adenopathy, thyroid normal Respiratory/Chest: chest non-tender, normal breath sounds, no respiratory distress, no accessory muscle use, + decreased breath sounds, + wheezing ( Occasional) Cardiovascular: regular rate, rhythm, no edema, no gallop, no JVD, no murmur , normal peripheral pulses Abdomen / GI: normal bowel sounds, non tender, soft, no organomegaly, no pulsatile mass Extremities: no calf tenderness, normal capillary refill, no pedal edema, normal range of motion, + swelling (1+) Neurologic/Psychiatric: customs agent II-XII nml as tested, no motor/sensory deficits , alert, normal mood/affect, normal reflexes Skin: normal color, warm/dry Hospital Course 82 y/o female with a history of HTN, chronic diastolic CHF, DM II, 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 Later evaluation was found to possible has been urinary tract infection, or possible have acute cholecystitis. Possible biliary strength, or acute calculous cholecystitis, no obvious cholangitis abnormal HIDA scan with no filling of gall bladder after 90 minutes, biliary stent placed 2 years ago was patent Has been treated with Zosyn IV, Vancomycin IV, GI is talking to surgeon for further was planning for such as ERCP, continue current antibiotics Elevated troponin, likely from demand ischemia, no further work up, last echo was done with [facility] Yadi HWANG with hyperglycemia, mild DKA, pharmacy hyperglycemia consultation, insulin drip as needed however patient's family not favored to do an insulin drip, will closely follow her labs, 1600 labs was ordered Acute kidney injury on CKD stage III/IV, h/o nephrectomy did receive Lasix on admission for suspected CHF, caution 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 Pt no longer on antihypertensives Renal cell carcinoma w/mets to lungs, bone, pancreas--noted, symptom control Pt on Opdivo, Xgeva this will be held at this time due to infection Recurrent C. diff-Continue chronic vanc 125 mg PO qd adding questran to help diarrhea Hypothyroidism Synthroid 200 mcg PO qd DVT prophylaxis -H/o bad reactions to anticoagulants in the past -EUSEBIA wiley and SCDs Code Status -Level V, DO NOT RESUSCITATE Discussed with patient and daughter answered all questions, patient and family finally choose notation of oral antibiotic, no planning to do ERCP or stent, I feel that decision is reasonable, I agreed, per infectious disease recommendation for pulse ABX therapy, Augmentin 14 day, and macrobid 14 days , then Augmentin 14 days, and then macrobid 14 days... continue Rotation . I discussed with patient and patient's family about patient's conditions, I told them patient's condition is guarded, I answered all questions to their satisfactions. The patient and family had multiple questions which were answered to their full satisfaction. Instructions / Follow-Up you was having weakness, leukocytosis, fever, possible biliary source of fever No evidence of CBD stent occlusion, less likely have cholangitis no plan for ERCP. continue vancomycin daily Infectious disease recommendation for pulse ABX therapy, Augmentin 14 day, and macrobid 14 days , then Augmentin 14 days, and then macrobid 14 days... continue Rotation . you need to continue Levemir insulin, I recommends of sliding scale post- discharge. Pharmacy suggested... less than 200 - no extra 201-250 1 unit 251-300 2 units 301-350 3 units 351-400 4 units 401-450 5 units - you need to follow up with your primary care physician in 1 week, - take medication as instructed, never overdose or any misuse, or take with alcohol, because misuse of medicine may cause organ damage or , call your primary care physician if have questions of medicaitons. - call your primary care physician OR go to local emergency room if has any fever/chill, chest pain, shortness of breathing, nausea/vomiting/abdominal pain , facial droop/slurry speech/local weakness, or if has any questions. - fall precaution - diet as instructed - you need to follow up with your subspecialists - you should understand that it is important to follow up the above instruction , and "not following the above instruction" may cause delayed or missed care of your medical conditions which may cause permanent organ damage and even . Total Time Spent: Greater than 30 minutes This includes examination of the patient, discharge planning, medication reconciliation, and communication with other providers. Discharge Instructions Please refer to the electronic Patient Visit Report (Discharge Instructions) for additional information.
--- NOTE | 2018-02-06 16:22 | EDITING REQUIRED CODING QUERY ---
SEPSIS To promote full compliance with coding requirements relating to patient care, physician participation is requested in all cases of metal baler uncertainty. Please assist us with the question(s) below: In responding to this query, please exercise your independent professional judgement. The fact that a question is asked does not imply that any particular answer is desired or expected. We appreciate your clarification on this issue. Throughout the medical record, you have clearly documented a localized infection and your patient has clinical evidence of a generalized sepsis or severe sepsis. The term urosepsis is a nonspecific entity and is coded as an UTI. If the patient has sepsis, severe sepsis, from an urinary source or some other source, please clarify in your response below. The medical record reflects the following : Patient adm with multiple mets , kidney primary . Presents with intermittent fevers and lethargy for last year. Please select below the diagnosis (if any) you treated during this Inpatient stay . Thanks for your help! Ian SANTOS CCS ( )Bacteremia (Nonspecific laboratory finding of bacteria in the blood) Specify Organism ( ) Present on Admission ( ) Not present on admission ( ) Unable to clinically determine ( ) Septicemia (Systemic disease associated with the presence of pathogenic microorganisms in the blood): Specify Organism ( ) Present on Admission ( ) Not present on admission ( ) Unable to clinically determine (x ) possible Sepsis Specify Organism Specify Associated Condition/Diagnosis (x) Present on Admission () Not present on admission () Unable to clinically determine ( ) Severe Sepsis (Sepsis associated with acute organ dysfunction) Specify Organism Specify Associated Condition/Diagnosis ( ) Present on Admission ( ) Not present on admission ( ) Unable to clinically determine ( ) Septic Shock (Severe sepsis with acute circulatory failure, unexplained by other causes) ( ) Present on Admission ( ) Not present on admission ( ) Unable to clinically determine ( ) Other, patient has:
== END 2018-02-04 15:21 | disposition home or self-care (01) | DRG 871 ==
LOC: C.EDB 12:23 → C.2E 15:57 → EDBEDREQ 16:04 → ENRESERV 16:08 → OBSVTOIN 01-31 18:37
PROVIDERS: ADMIT Hospitalist; ATTEND Hospitalist
DX: A41.9 Sepsis, unspecified organism (principal); I50.33 Acute on chronic diastolic (congestive) heart failure; E11.10 Type 2 diabetes mellitus with ketoacidosis without coma; C79.51 Secondary malignant neoplasm of bone; C78.00 Secondary malignant neoplasm of unspecified lung; C78.89 Secondary malignant neoplasm of other digestive organs; I13.0 Hypertensive heart and chronic kidney disease with heart failure and stage 1 through stage 4 chronic kidney disease, or unspecified chronic kidney disease; A04.71 Enterocolitis due to Clostridium difficile, recurrent; K80.00 Calculus of gallbladder with acute cholecystitis without obstruction; N39.0 Urinary tract infection, site not specified; N18.4 Chronic kidney disease, stage 4 (severe); I24.8 Other forms of acute ischemic heart disease; N17.9 Acute kidney failure, unspecified; Z85.528 Personal history of other malignant neoplasm of kidney; Z86.718 Personal history of other venous thrombosis and embolism; Z88.8 Allergy status to other drugs, medicaments and biological substances; E83.51 Hypocalcemia; R79.89 Other specified abnormal findings of blood chemistry; E11.21 Type 2 diabetes mellitus with diabetic nephropathy; N18.3 Chronic kidney disease, stage 3 (moderate); E03.9 Hypothyroidism, unspecified; E11.65 Type 2 diabetes mellitus with hyperglycemia; E21.3 Hyperparathyroidism, unspecified